=== PATIENT | male | born 1950 | race Two or more races ===

== ENCOUNTER 2024-04-06 15:04 | Inpatient (IN) | payer MEDICARE, MEDICAID, SELFPAY ==
[2024-04-06] VITALS (7 sets, daily range): BP systolic 125–170; BP diastolic 72–81; PULSE 64–93; RESP 14–20; TEMP 36.6–37.1; O2SAT 95–99; BMI 28.3
--- NOTE | 2024-04-06 15:34 | PD.EDRME ---
Rapid Medical Screening Exam RME Arrival date/time: 04/06/24 15:04 74 yo m with c/o of right foot wound. hx dm I have greeted and performed a focused initial assessment of this patient. A comprehensive ED assessment and evaluation of the patient, analysis of all test results, and completion of the medical decision making process will be conducted by additional ED providers. Chief Complaint: Wound/Laceration Time Seen by Provider: 04/06/24 15:23
--- NOTE | 2024-04-06 15:35 | XR_ITS ---
Examination: Foot, , 3 views right foot Technique: AP, oblique, lateral views foot, 3 views Date and time of exam: 04/06/2024, 2029 9:00 PM INDICATION: Infection. FINDINGS: No evidence of fracture or dislocation. 1.6 cm well-circumscribed lucency in the anterior calcaneus unchanged since prior exam.. Otherwise negative exam without evidence of bony erosions. IMPRESSION: No acute bony abnormality. No evidence of bony erosions.
[2024-04-06 15:56] LABS: Lactate (Lactic Acid) 1.2 mMol/L (0.4-2.0)
[2024-04-06 16:01] LABS: Basophils # (Auto) 0.1 Thou/mm3 (0.0-0.2); Basophils % (Auto) 1 % (0-2.5); Eosinophils # (Auto) 0.3 Thou/mm3 (0.0-0.5); Eosinophils % (Auto) 2 % (0-10); Hematocrit 36.5 % (41.0-53.0); Hemoglobin 12.6 g/dL (13.5-16.0); Immature Granulocytes % (Auto) 0 % (0-0); Immature Granulocytes Auto 0.04 Thou/mm3 (0.00-0.00); Lymphocytes # (Auto) 2.9 Thou/mm3 (1.0-4.8); Lymphocytes % (Auto) 23 % (10-50); Mean Corpuscular HGB Conc 34.5 g/dl (31.0-37.0); Mean Corpuscular Hemoglobin 30.5 pg (25.0-35.0); Mean Corpuscular Volume 88 fL (80-100); Monocytes # (Auto) 1.3 Thou/mm3 (0.0-0.8); Monocytes % (Auto) 10 % (0-12); Neutrophils # (Auto) 8.3 Thou/mm3 (1.8-7.7); Neutrophils % (Auto) 64 % (37-80); Nucleated Red Blood Cell % 0 /100 WBC (0); Platelet Count 222 Thou/mm3 (140-440); RDW Standard Deviation 41.9 fL (35.1-43.9); Red Blood Count 4.13 Miln/mm3 (4.50-5.90); White Blood Count 12.9 Thou/mm3 (3.8-10.6)
[2024-04-06 16:22] LABS: Alanine Aminotransferase 15 U/L (10-49); Albumin, Serum 4.5 gm/dL (3.4-4.8); Albumin/Globulin Ratio 1.5 (1.2-2.2); Alkaline Phosphatase 134 U/L (46-116); Anion Gap 8 (7-16); Aspartate Amino Transferase 12 U/L (0-34); BUN/Creatinine Ratio 15 Ratio (12-20); Bilirubin,Total 0.5 mg/dL (0.3-1.2); Blood Urea Nitrogen 28 mg/dL (9-23); Carbon Dioxide 25.2 mMol/L (20.0-31.0); Chloride 100 mMol/L (98-107); Creatinine (Component) 1.9 mg/dL (0.6-1.3); Glucose 331 mg/dL (74-106); Osmolality,Calculated 284 (275-295); Potassium 4.8 mMol/L (3.4-5.1); Procalcitonin 0.09 ng/ml (0.0-0.49); Sodium 133 mMol/L (136-145); Total Protein 7.5 gm/dL (5.7-8.2); eGFR 37 See Note
[2024-04-06 16:59] LABS: Sed Rate (ESR) 56 mm/hr (0-20)
[2024-04-06 17:13] LABS: C-Reactive Protein 3.6 mg/dL (0.0-0.9)
--- NOTE | 2024-04-06 19:19 | PC.NURSE ---
pt is resting quietly no complaints. family at bedside.
--- NOTE | 2024-04-06 19:23 | PD.EDWOUND ---
ED Wound/Laceration-RME/HPI General Chief Complaint: Wound/Laceration Stated Complaint: RIGHT FOOT LACERATION/DIABETIC Time Seen by Provider: 04/06/24 15:23 Arrival date/time: 04/06/24 15:04 RME / HPI RME / HPI narrative: 04/06/24 15:04 74 yo m with c/o of right foot wound. hx dm I have greeted and performed a focused initial assessment of this patient. A comprehensive ED assessment and evaluation of the patient, analysis of all test results, and completion of the medical decision making process will be conducted by additional ED providers. DR. HALLIE WING ED EVALUATION: 19:24 patient is a 74-year-old male with history of hypertension, hypercholesterolemia and diabetes was brought in by daughter today after she noticed an open wound to the right foot. Patient is diabetic and has some swelling and redness to that limb in addition to the open wound. Daughter is concerned about a diabetic foot infection. Patient denies fevers, shakes, chills, sweats. No chest pain or dyspnea. Related Data Home Medications ?Medication ?Instructions ?Recorded ?Confirmed aspirin 81 mg tablet,delayed 81 mg PO QDAY 11/17/17 04/07/24 release (Bert Low Dose Aspirin) clopidogrel 75 mg tablet (Plavix) 75 mg PO QDAY 11/17/17 03/18/20 docusate sodium 100 mg capsule 100 mg PO QDAY 11/17/17 04/07/24 (Colace) Held on 04/07/24. Instructions: takes biacodyl metoprolol tartrate 25 mg tablet 50 mg PO BID 11/17/17 04/07/24 semaglutide 1 mg/dose (4 mg/3 mL) 1 mg subcut QWEEK 04/07/24 04/07/24 subcutaneous pen injector (Ozempic) Previous Rx's ?Medication ?Instructions ?Recorded aspirin 81 mg capsule 81 mg PO QDAY #30 caps 04/08/24 atorvastatin 10 mg tablet (Lipitor) 20 mg (2 x 10 mg) PO HS #30 tabs 04/08/24 bisacodyl 5 mg tablet,delayed 5 mg PO PRN #30 tabs 04/08/24 release clopidogrel 75 mg tablet 75 mg PO QDAY #30 tabs 04/08/24 doxycycline hyclate 100 mg capsule 100 mg PO BID #20 caps 04/08/24 finasteride 5 mg tablet 5 mg PO QDAY #30 tabs 04/08/24 flash glucose sensor (FreeStyle #1 ea 04/08/24 Singh 14 Day Sensor kit) glipizide 5 mg tablet, extended 5 mg PO BID #60 tabs 04/08/24 release 24 hr insulin glargine 100 unit/mL 20 unit (0.2 mL) SCi BID #2 pens 04/08/24 subcutaneous solution (Lantus U-100 Insulin) insulin lispro 100 unit/mL 0 sliding scale dose SCi AC #2 04/08/24 subcutaneous solution vials insulin syringe-needle U-100 0.5 #10 ea 04/08/24 mL 29 gauge x 1/2 (Insulin Syringe) lisinopril 40 mg tablet 40 mg PO QDAY #30 tabs 04/08/24 metoprolol tartrate 25 mg tablet 50 mg (2 x 25 mg) PO BID #60 tabs 04/08/24 sitagliptin phosphate 50 mg tablet 50 mg PO QDAY #30 tabs 04/08/24 (Januvia) vitamin B complex-vitamin C-folic 1 tab PO Q24H #30 tabs 04/08/24 acid 0.8 mg tablet (Renal-Chata) Allergies Allergy/AdvReac Type Severity Reaction Status Date / Time No Known Allergies Allergy Verified 04/06/24 15:06 Review of Systems Review of Systems Systems Reviewed: All systems reviewed, normal except as documented Narrative Review of Systems: GEN: No fever, no chills, no weight loss EYES: No discharge, no visual changes, no pain HEENT: No ear pain, no congestion, no sore throat PULM: No shortness of breath, no cough, no congestion CV: No chest pain, no dyspnea on exertion, no palpitations GI: No nausea, no vomiting, no diarrhea, no pain, no constipation : No frequency, no urgency and no dysuria MUSC/SKEL: No joint pain, no back pain SKIN: No rash. + right foot open wound (see HPI) PSYCH: No hallucinations, no depression HEME/LYMPH: No easy bleeding or bruising tendencies NEURO: No weakness, no headache Past Medical History Past Medical History CARDIAC: Positive Cardiac Disorders, Coronary Artery Disease (CABG), Hypercholesterolemia and Hypertension GASTROINTESTINAL: Positive Obesity GENITOURINARY: Positive Chronic Kidney Disease MUSCULOSKELETAL: Positive Arthritis ENDOCRINE: Positive Endocrine Disorders, Diabetes Mellitus Type 2 and Parathyroid Disease OTHER HISTORY: Positive Hospitalization and Falls Family History FAMILY HISTORY: Positive Family Respiratory Disorders (father had asthma) and Family Cardiac Disorders (father passed from [place]) Surgical History SURGICAL: Positive Cardiac Surgery, Open Heart Surgery, Coronary Artery Bypass Graft, Coronary Stent (X2), Cardiac Catheterization and Angiogram Social History SMOKING STATUS: Former smoker SUBSTANCE USE: does not use ALCOHOL: Never ED Exam Narrative Physical exam: GENERAL APPEARANCE:? alert and oriented x 4, well-developed, well-nourished, no acute distress HEENT: Normocephalic, atraumatic; pupils equal, round, reactive to light; EOMI; mucous membranes pink, moist; oropharynx clear NECK: Supple LUNGS: CTABL; no wheezes, no rales, no rhonchi HEART: Regular rate, regular rhythm; normal S1, S2; no murmurs ABDOMEN: non distended; normal BS;? soft, no tenderness, no guarding, no rebound; no masses, no organomegaly, no hernia?? BACK:? no CVA tenderness EXTREMITIES:? Patient has a 3-1/2 x 2 cm open wound to the medial aspect of the great toe with some surrounding erythema. There is erythema of the foot and the distal ankle and joseph area with +2/4 pitting edema in the right lower extremity. No pitting edema left lower extremity. There is no drainage or active bleeding to the wound. There is no tenderness to palpation of the area and patient has good sensation and not foot. NEUROLOGIC: awake; alert and oriented x4; cranial nerves II-XII grossly intact; no focal sensory or motor deficits PSYCHIATRIC:? appropriate mood and affect SKIN: warm, dry, normal color; no rashes. Wound to the right great toe (see above under extremities for details). Course Quality Measures none Orders Category Date Time Status Tower Operator STAT Care 04/06/24 19:26 Completed Continuous Pulse Oximetry STAT Care 04/06/24 19:26 Completed EKG (ED ONLY) *Do not use* NOW Care 04/06/24 19:26 Completed In and Out Catheter X1PRN Care 04/06/24 19:26 Completed Insert IV NOW Care 04/06/24 19:26 Completed NPO STAT Care 04/06/24 19:26 Completed Strict Intake and Output Routine Care 04/06/24 19:26 Ordered EKG (ED Only) Stat Exams 04/06/24 19:26 Draft XR chest 1V portable Stat Exams 04/06/24 19:26 Completed XR foot comp RT min 3V Stat Exams 04/06/24 15:35 Completed B-Type Natriuretic Peptide Stat Lab 04/06/24 19:37 Completed Blood Culture (Lab) Stat Lab 04/06/24 15:40 Results CBC Stat Lab 04/06/24 15:48 Completed CMP [Comprehensive Metabolic Panel] Stat Lab 04/06/24 15:48 Completed CRP [C-Reactive Protein] Stat Lab 04/06/24 15:48 Completed ESR [Sed Rate (ESR)] Stat Lab 04/06/24 15:48 Completed LDH (Lactate Dehydrogenase) Stat Lab 04/06/24 19:37 Completed Lactic Acid [Lactate (Lactic Acid)] Stat Lab 04/06/24 15:48 Completed Lipase Stat Lab 04/06/24 19:37 Completed Magnesium Stat Lab 04/06/24 19:37 Completed Partial Thromboplastin Time Stat Lab 04/06/24 19:37 Completed Phosphorous Stat Lab 04/06/24 19:37 Completed Procalcitonin Stat Lab 04/06/24 15:48 Completed Prothrombin Time with INR Stat Lab 04/06/24 19:37 Completed Troponin I Stat Lab 04/06/24 19:37 Completed Urinalysis Stat Lab 04/06/24 21:45 Completed Urine Culture Stat Lab 04/06/24 21:45 Completed Doxycycline Inj [Vibramycin Inj] 100 mg Med 04/06/24 19:26 Discontinued Sodium Chloride 0.9% (Pop) [NS 0.9% mini bag] 100 ml IV X1 Piper/Tazo Inj [Zosyn Inj] 4.5 gm Med 04/06/24 19:28 Discontinued Sodium Chloride 0.9% (Pop) [NS 0.9% mini bag] 100 ml IV X1 Sodium Chloride 0.9% 500 ml [Ns] 500 ml Med 04/06/24 19:26 Discontinued IV 999 mls/hr Vital Signs Vital signs: Vital Signs Temperature 98.7 F 04/06/24 15:41 Pulse Rate 93 04/06/24 15:41 Respiratory Rate 20 04/06/24 15:41 Blood Pressure 125/76 04/06/24 15:41 Pulse Oximetry (%) 97 04/06/24 15:41 Oxygen Delivery Method Room Air 04/06/24 15:41 Wound / Laceration MDM Narrative MDM Narrative:: Patient arrived with a heart rate 93. He also has a leukocytosis at 12.9. With these 2 SIRS criteria plus the cellulitic looking foot, patient meets simple sepsis criteria. Lactate less than 2.0. Vital signs at 16:44 all within normal limits save for some mild hypertension. I have ordered the remainder of the sepsis workup, Zosyn and doxycycline IV, fluid bolus and will admit the patient for further antibiotics and workup. Patient data External records reviewed:: [facility] previous records (Reviewed operative note by Dr. Davison dated 03/18/20.) Clinical information provided by:: patient and family (daughter) Social determinants that could affect healthcare access:: none Patient has the following chronic illnesses:: hypertension, hypercholesterolemia and diabetes How is presenting disease/condition affected by chronic disease/condition?: exacerbated by Evaluation data The following diagnostics were reviewed and interpreted by me:: lab results, radiology exam(s) and EKG tracing(s) (EKG 19:57 normal sinus rhythm at 68. Left axis deviation. No ectopy. No signs of acute ischemia or STEMI.) Lab and/or radiology exams considered but not ordered:: none Interpretation Summary: Procedure(s): XR foot comp RT min 3V Accession Number(s): [id number] cc: Lex Kiser MD; Conner Aponte PA-C; Yonny Herrera MD~ Examination: Foot, , 3 views right foot Technique: AP, oblique, lateral views foot, 3 views Date and time of exam: 04/06/2024, 2029 9:00 PM INDICATION: Infection. FINDINGS: No evidence of fracture or dislocation. 1.6 cm well-circumscribed lucency in the anterior calcaneus unchanged since prior exam.. Otherwise negative exam without evidence of bony erosions. IMPRESSION: No acute bony abnormality. No evidence of bony erosions. Dictated By: Lex Kiser MD Procedure(s): XR chest 1V portable Accession Number(s): [id number] cc: Alex Contreras MD; Gavin Sam MD; Yonny Herrera MD~ Examination: AP chest single view Technique one AP portable semiupright chest single view Exam date and time: April 06, 20242001 hrs. Comparison November 17, 2017 Indications: Fever today, sepsis alert Findings: Mild enlargement cardiac contour CABG No pneumonia or pulmonary edema Moderate osteopenia Minor subsegmental atelectasis left base Impression: Minor subsegmental atelectasis left base Dictated By: Alex Contreras MD Medications / Prescriptions Medications or Prescriptions considered but not ordered:: none Medication administrations:: Medication Administration History Discontinued Medications Aspirin (Aspirin Ec 81 Mg Tabec) 81 mg PO QDAY [facility] Stop: 05/07/24 08:59 Last Admin: 04/08/24 08:30 Dose: 81 mg Documented By: Admin: 04/07/24 08:55 Dose: 81 mg Documented By: LT Atorvastatin Calcium (Atorvastatin Calcium 10 Mg Tablet) 20 mg PO QDAY [facility] Stop: 05/07/24 08:59 Last Admin: 04/07/24 08:55 Dose: 20 mg Documented By: LT Atorvastatin Calcium (Atorvastatin Calcium 20 Mg Tablet) 20 mg PO QDAY [facility] Stop: 05/07/24 08:59 Last Admin: 04/08/24 08:30 Dose: 20 mg Documented By: LT Clopidogrel Bisulfate (Clopidogrel Bisulfate 75 Mg Tablet) 75 mg PO QDAY [facility] Stop: 05/07/24 08:59 Last Admin: 04/08/24 08:31 Dose: 75 mg Documented By: Admin: 04/07/24 08:55 Dose: 75 mg Documented By: LT Dextrose (Dextrose 50%-Water Inj 50 Ml Syringe) 25 ml IV Q15MIN PRN PRN Reason: BG 50-70 responsive npo pt Stop: 05/06/24 20:57 Dextrose (Dextrose 50%-Water Inj 50 Ml Syringe) 50 ml IV Q15MIN PRN PRN Reason: BG <50 OR BG <70 & pt unresponsive Stop: 05/06/24 20:57 Docusate Sodium (Docusate Sod 100 Mg Capsule) 100 mg PO QDAY [facility]; Protocol Stop: 05/07/24 08:59 Last Admin: 04/08/24 08:30 Dose: 100 mg Documented By: Admin: 04/07/24 08:55 Dose: 100 mg Documented By: LT Finasteride (Finasteride 5 Mg Tablet) 5 mg PO QDAY [facility] Stop: 05/07/24 08:59 Last Admin: 04/08/24 08:31 Dose: 5 mg Documented By: Admin: 04/07/24 08:55 Dose: 5 mg Documented By: LT Glipizide (Glipizide 5 Mg Tablet) 5 mg PO BID [facility]; Protocol Stop: 05/07/24 08:59 Last Admin: 04/07/24 08:56 Dose: 5 mg Documented By: LT Glucagon (Glucagon Inj 1 Mg Vial) 1 mg IM Q15MIN PRN PRN Reason: BG <70, and no IV access Heparin Sodium (Porcine) (Heparin Sod Inj 5000 Unit/Ml Vial) 5,000 unit SC Q8HR [facility] Stop: 04/21/24 21:59 Last Admin: 04/08/24 05:36 Dose: 5,000 unit Documented By: BEBE Co-signed By: TAMMIE Admin: 04/07/24 21:17 Dose: 5,000 unit Documented By: BEBE Co-signed By: TAMMIE Sodium Chloride (Ns) 500 mls @ 999 mls/hr IV .Q31M ONE Stop: 04/06/24 19:56 Last Infusion: 04/06/24 21:48 Dose: Infused Documented By: Admin: 04/06/24 19:54 Dose: 999 mls/hr Documented By: RASHAUN Piperacillin Sod/Tazobactam (Sod 4.5 gm/ Sodium Chloride) 100 mls @ 200 mls/hr IV X1 ONE Stop: 04/06/24 19:57 Last Infusion: 04/06/24 21:48 Dose: Infused Documented By: Admin: 04/06/24 19:52 Dose: 200 mls/hr Documented By: RASHAUN Doxycycline Hyclate 100 mg/ (Sodium Chloride) 100 mls @ 100 mls/hr IV X1 ONE Stop: 04/06/24 20:25 Last Infusion: 04/06/24 21:48 Dose: Infused Documented By: Admin: 04/06/24 19:53 Dose: 100 mls/hr Documented By: RASHAUN Piperacillin Sod/Tazobactam (Sod 3.375 gm/ Sodium Chloride) 50 mls @ 12.5 mls/hr IV Q8HR [facility]; Protocol Stop: 04/14/24 05:59 Last Admin: 04/08/24 05:36 Dose: 12.5 mls/hr Documented By: Infusion: 04/08/24 01:30 Dose: Infused Documented By: Admin: 04/07/24 21:20 Dose: 12.5 mls/hr Documented By: Infusion: 04/07/24 18:45 Dose: Infused Documented By: Admin: 04/07/24 14:35 Dose: 12.5 mls/hr Documented By: Infusion: 04/07/24 10:04 Dose: Infused Documented By: Admin: 04/07/24 06:04 Dose: 12.5 mls/hr Documented By: Insulin Glargine (Insulin Glargine (Lantus) 5 Unit/0.05 Ml (Per 5 Units)) 10 unit SC QDAY [facility] Stop: 05/07/24 08:59 Last Admin: 04/07/24 08:53 Dose: 10 unit Documented By: Co-signed By: CHEEM1 Insulin Glargine (Insulin Glargine (Lantus) 5 Unit/0.05 Ml (Per 5 Units)) 20 unit SC BID [facility] Stop: 05/07/24 20:59 Last Admin: 04/08/24 08:32 Dose: 20 unit Documented By: Co-signed By: CAIT Admin: 04/07/24 21:17 Dose: 20 unit Documented By: BEBE Co-signed By: TAMMIE Insulin Human Lispro (Insulin Lispro (Admelog) 1 Unit/0.01 Ml Unit) 0 unit SC AC [facility]; Protocol Stop: 05/07/24 07:29 Last Admin: 04/08/24 07:35 Dose: 2 unit Documented By: ALLI Co-signed By: Admin: 04/07/24 17:07 Dose: Not Given Documented By: Non-Admin Reason: Per Protocol Admin: 04/07/24 11:39 Dose: 5 unit Documented By: CLARA Co-signed By: Admin: 04/07/24 07:41 Dose: 5 unit Documented By: CLARA Co-signed By: Comments: given with clinical instructor Azalea ROACH. Lisinopril (Lisinopril 20 Mg Tablet) 40 mg PO QDAY [facility] Stop: 05/07/24 08:59 Last Admin: 04/08/24 08:27 Dose: Not Given Documented By: LT Non-Admin Reason: per md amy rodriguez d/t soft bp this am Admin: 04/07/24 08:56 Dose: 40 mg Documented By: LT Metoprolol Tartrate (Metoprolol Tartrate 25 Mg Tablet) 50 mg PO BID [facility] Stop: 05/06/24 20:59 Last Admin: 04/08/24 08:28 Dose: Not Given Documented By: LT Non-Admin Reason: hold per md reyes d/t soft bp this am Admin: 04/07/24 21:11 Dose: 50 mg Documented By: Admin: 04/07/24 08:54 Dose: 50 mg Documented By: Admin: 04/06/24 21:47 Dose: Not Given Documented By: TC Non-Admin Reason: Contraindicated Sitagliptin Phosphate (Sitagliptin Phosphate 50 Mg Tablet) 50 mg PO QDAY [facility] Stop: 05/08/24 08:59 Last Admin: 04/08/24 08:30 Dose: 50 mg Documented By: LT see above Consultations Consultation(s) initiated? (list below): Yes Consultation #1 (Physician, Specialty, Details): Discussed test HPI, PMHx, lab, radiology results and/or management with Dr. Herrera. Will admit for further evaluation and management. Accepts patient for admission. Diagnosis Wound Differential Diagnosis: abscess and other (sepsis, diabetic ulcer, diabetes with hyperglycemia) Most likely diagnosis given after review of the tests above:: Diabetic foot ulcer associated with type 2 diabetes mellitus Diabetes mellitus with hyperglycemia Hypertension Hyperlipidemia Acute on chronic renal insufficiency CKD stage 3 due to type 2 diabetes mellitus Admission Indicated Admission indicated?: indicated Admission Request Was there a request for admission?: Yes Admission Attestation Admission request attestation: Discussed case with [] from Hospitalist service regarding admission. Discussed patients ED course, exam findings, labs, and radiology results. The Hospitalist [agrees,declines] to accept the patient for admission. Disposition Plan Disposition Plan: Admit Discharge Plan Plan Patient Disposition: Admit Acute Care w/in Hospital Patient condition on transfer: Stable Problem List Clinical Impression: Diabetic foot ulcer associated with type 2 diabetes mellitus, Hypertension, Diabetes mellitus with hyperglycemia, Hyperlipidemia, Acute on chronic renal insufficiency, CKD stage 3 due to type 2 diabetes mellitus Patient/Caregiver Discharge Instructions Discharge Activity: as per physical therapy
--- NOTE | 2024-04-06 19:26 | EKG_ITS ---
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
--- NOTE | 2024-04-06 19:26 | XR_ITS ---
Examination: AP chest single view Technique one AP portable semiupright chest single view Exam date and time: April 06, 20242001 hrs. Comparison November 17, 2017 Indications: Fever today, sepsis alert Findings: Mild enlargement cardiac contour CABG No pneumonia or pulmonary edema Moderate osteopenia Minor subsegmental atelectasis left base Impression: Minor subsegmental atelectasis left base
[2024-04-06] MEDS: PIPER/TAZO INJ 4.5 GM in SODIUM CHLORIDE 0.9% (POP) 100 ML IV (19:52)
[2024-04-06] MEDS: DOXYCYCLINE INJ 100 MG in SODIUM CHLORIDE 0.9% (POP) 100 ML IV (19:53)
[2024-04-06] MEDS: SODIUM CHLORIDE 0.9% 500 ML 500 ML 999 ML IV (19:54)
[2024-04-06 20:01] LABS: Partial Thromboplastin Time 25.1 Seconds (22.0-36.0); Prothrombin Time 11.2 Seconds (9.0-12.2)
[2024-04-06 20:33] LABS: B-Type Natriuretic Peptide 64 pg/mL (0-100)
--- NOTE | 2024-04-06 21:01 | PD.NEPHHP ---
Documentation for date of: 04/06/24 History of Present Illness History of Present Illness Chief complaint: Right foot diabetic ulcer History of present illness: Mr. Marc is a 74-year-old gentleman with a longstanding history of hypertension, poorly controlled diabetes for more than 15 years, dyslipidemia, diabetic neuropathy, diabetic retinopathy presented to the emergency department brought by her daughter with open wound on the right foot (right great toe medial aspect and the right third toe) noted erythema in the right foot. Patient was given Zosyn. Was admitted for further evaluation. Patient denies fevers, shakes, chills, sweats. No chest pain or dyspnea. In the emergency department-lactic acid less than 2, cellulitic right foot noted.Urinalysis shows 4+ glucose. WBC 12.9, hemoglobin 12.6, platelets 222. Chemistry sodium 133, potassium 4.8, BUN 28, creatinine 1.9, glucose 329 with an A1c 13.1. Phosphorus 3.4, magnesium 1.9, LFTs normal, troponin negative. C-reactive protein 3.6, albumin 4.5, lipase 59, Pro-Paco 0.09 foot x-ray showed no evidence of bony erosions. Chest x-ray negative. EKG did not show any acute ST-T changes. In the ED-on exam the patient has a 3-1/2 x 2 cm open wound to the medial aspect of the great toe with some surrounding erythema. There is erythema of the foot and the distal ankle and joseph area with +2/4 pitting edema in the right lower extremity. No pitting edema left lower extremity. There is no drainage or active bleeding to the wound. There is no tenderness to palpation of the area and patient has good sensation to the foot ER doctor gave Zosyn and doxycycline IV, fluid bolus and patient was admitted for antibiotics and workup. Review of Systems Review of Systems Narrative Review of Systems: CONSTITUTIONAL: Patient denies any fever, chills. HEENT: Denies any visual disturbances or hearing problems. CARDIOVASCULAR: Patient denies any chest pain, shortness of breath, swelling in the lower extremities. PULMONARY: Patient denies any shortness of breath, cough. GASTROINTESTINAL: Patient denies any abdominal pain, constipation, nausea, vomiting, diarrhea. GENITOURINARY: Patient denies any urinary symptoms of burning or frequency or hematuria, denies any form in the urine. SKIN: Denies any rash. MUSCULOSKELETAL: Complaining of pain in the right toes NEUROLOGICAL: Denies any neurological problems of strokes, seizures or confusion. Denies any memory problems. PSYCHIATRIC: Denies any depression or anxiety. LYMPHATICS : No lymphadenopathy Past Medical History Past Medical History CARDIAC: Positive Hypercholesterolemia and Hypertension GENITOURINARY: Positive Chronic Kidney Disease MUSCULOSKELETAL: Positive Arthritis ENDOCRINE: Positive Diabetes Mellitus Type 2 and Parathyroid Disease Meds Home Medications and Allergies Home Medications ?Medication ?Instructions ?Recorded ?Confirmed ?Type aspirin 81 mg tablet,delayed 81 mg PO QDAY 11/17/17 04/07/24 History release (Bert Low Dose Aspirin) atorvastatin 10 mg tablet (Lipitor) 20 mg PO HS 11/17/17 04/07/24 History clopidogrel 75 mg tablet (Plavix) 75 mg PO QDAY 11/17/17 03/18/20 History docusate sodium 100 mg capsule 100 mg PO QDAY 11/17/17 04/07/24 History (Colace) Held on 04/07/24. Instructions: takes biacodyl lisinopril 40 mg tablet 40 mg PO QDAY 11/17/17 04/07/24 History metoprolol tartrate 25 mg tablet 50 mg PO BID 11/17/17 04/07/24 History finasteride 5 mg tablet 5 mg PO QDAY 03/18/20 04/07/24 History glipizide 5 mg tablet, extended 5 mg PO BID 03/18/20 04/07/24 History release 24 hr insulin NPH-regular 70-30 U-100 20 unit subcut QAM 03/18/20 04/07/24 History insulin 100 unit/mL subcutaneous pen (Novolin 70-30 FlexPen U-100 Insulin) bisacodyl 5 mg tablet,delayed 5 mg PO PRN 04/07/24 04/07/24 History release semaglutide 1 mg/dose (4 mg/3 mL) 1 mg subcut QWEEK 04/07/24 04/07/24 History subcutaneous pen injector (Ozempic) vitamin B complex-vitamin C-folic 1 tab PO Q24H 04/07/24 04/07/24 History acid 0.8 mg tablet (Renal-Chata) Allergies Allergy/AdvReac Type Severity Reaction Status Date / Time No Known Allergies Allergy Verified 04/06/24 15:06 Exam Vital Signs Temp Pulse Resp BP Pulse Ox O2 Del Method 36.6 C 80 18 170/81 H 97 Room Air 04/06/24 18:44 04/06/24 18:44 04/06/24 18:44 04/06/24 18:44 04/06/24 18:44 04/06/24 18:44 Narrative Exam GENERAL APPEARANCE: Patient seems to be comfortable, adequately hydrated and nourished. HEENT: EOMI, PERRLA NECK: Neck supple, no JVD or bruit CARDIOVASCULAR: Heart regular, no murmurs LUNGS/CHEST: Chest clear to auscultation. No rales, rhonchi, wheezing ABDOMEN: Soft, nontender, nondistended. No masses. Normal bowel sounds. EXTREMITIES: No edema, clubbing or cyanosis. SKIN: Skin exam normal without any rashes MUSCULOSKELETAL: Patient has unstageable diabetic ulcer on the right great toe and underneath the right third toe PSYCHIATRIC: Normal mood, affect LYMPHATICS: No lymphadenopathy noted NEUROLOGICAL : No neurological deficits Results: Labs 04/06/24 15:48 04/06/24 15:48 Labs: Short CBC 04/06/24 Range/Units 15:48 WBC 12.9 H (3.8-10.6) Thou/mm3 Hgb 12.6 L (13.5-16.0) g/dL Hct 36.5 L (41.0-53.0) % Plt Count 222 (140-440) Thou/mm3 BMP 04/06/24 15:48 Sodium 133 L Potassium 4.8 Chloride 100 Carbon Dioxide 25.2 BUN 28 H Creatinine 1.9 H Glucose 331 H Calcium 10.0 Liver Function 04/06/24 Range/Units 15:48 Total Bilirubin 0.5 (0.3-1.2) mg/dL AST 12 (0-34) U/L ALT 15 (10-49) U/L Alkaline Phosphatase 134 H (46-116) U/L Albumin 4.5 (3.4-4.8) gm/dL Assessment & Plan Assessment and plan (1) Diabetic foot ulcer associated with type 2 diabetes mellitus: Status: Acute Assessment and plan: Patient seems to have diabetic foot ulcer in 2 places-wound care, antibiotics given. Will check arterial Doppler. (2) Diabetes mellitus with hyperglycemia: Status: Inactive Assessment and plan: Spoke to son at bedside-patient seems to be noncompliant with his insulin. A1c 13.6. Added Lantus 20 units twice daily along with sliding scale. (3) Hypertension: Status: Acute Assessment and plan: Add home blood pressure medications (4) Hyperlipidemia: Status: Acute Assessment and plan: Continue statin (5) Acute on chronic renal insufficiency: Status: Acute Assessment and plan: Acute on chronic renal insufficiency from poorly controlled diabetes Gentle IV fluids given. He has CKD stage III from diabetic nephropathy. (6) CKD stage 3 due to type 2 diabetes mellitus: Status: Acute Assessment and plan: Check PTH Additional Assessment & Plan Additional Plan: Estimated length of stay 2 to 3 days DVT prophylaxis heparin GI prophylaxis not needed Disposition Home Quality Measures Quality Measures VTE prophylaxis Advance care planning discussed with:: patient
[2024-04-06 21:36] LABS: LDH (Lactate Dehydrogenase) 183 U/L (120-246); Lipase 59 U/L (12-53); Magnesium 1.9 mg/dL (1.6-2.6); Phosphorous 3.4 mg/dL (2.4-5.1); Troponin I < 0.020 ng/mL (0.0-0.045)
[2024-04-06 21:54] LABS: Collection Type, Urine Clean Catch; Squamous Epithelial Cell,Urine 0 /hpf (0-5)
[2024-04-06 22:00] LABS: Bilirubin,Urine Negative (Negative); Blood,Urine Negative (Negative); Clarity,Urine Clear (Clear/Hazy); Color,Urine Lt-Yellow (Lt Yel-Yel); Glucose, Urine 4+ (Negative); Ketones,Urine Negative (Negative); Leukocyte Esterase,Urine Negative (Negative); Nitrite,Urine Negative (Negative); Protein,Urine Trace (Neg - Trace); RBC,Urine < 1 /hpf (0-3); Specific Gravity,Urine 1.009 (1.001-1.035); Urobilinogen,Urine Negative mg/dL (0.0-1.0); WBC,Urine < 1 /hpf (0-5)
--- NOTE | 2024-04-06 23:03 | PC.NURSE ---
REPORT WAS CALLED AND PT TAKEN TO RM [id number]
--- NOTE | 2024-04-06 23:04 | PC.NURSE ---
PT CO SORNESS TO NECK . PT HAD A FALL ON 04/02. MD AWARE AND TYLENOL GIVEN
[2024-04-07] VITALS (9 sets, daily range): BP systolic 124–162; BP diastolic 65–91; PULSE 56–74; RESP 16–19; TEMP 36.1–36.7; O2SAT 95–99
[2024-04-07 05:16] LABS: Glucose Estimated Average 329 mg/dL (80-131); Hemoglobin A1C 13.1 % Hgb (4.8-6.0)
[2024-04-07] MEDS: PIPER/TAZO INJ 3.375 GM in SODIUM CHLORIDE 0.9% (Popper) 50 ML IV ×3 (06:04→21:20)
[2024-04-07] MEDS: INSULIN LISPRO (AdmeLOG) 1 UNIT/0.01 ML UNIT SC ×2 (07:41→11:39)
[2024-04-07] MEDS: INSULIN GLARGINE (Lantus) 5 UNIT/0.05 ML (PER 5 UNITS) 10 UNIT SC (08:53)
[2024-04-07] MEDS: METOPROLOL TARTRATE 25 MG TABLET 50 MG PO ×2 (08:54→21:11)
[2024-04-07] MEDS: FINASTERIDE 5 MG TABLET PO (08:55)
[2024-04-07] MEDS: ASPIRIN EC 81 MG TABEC PO (08:55)
[2024-04-07] MEDS: ATORVASTATIN CALCIUM 10 MG TABLET 20 MG PO (08:55)
[2024-04-07] MEDS: DOCUSATE SOD 100 MG CAPSULE PO (08:55)
[2024-04-07] MEDS: CLOPIDOGREL BISULFATE 75 MG TABLET PO (08:55)
[2024-04-07] MEDS: Lisinopril 20 MG TABLET 40 MG PO (08:56)
[2024-04-07] MEDS: glipiZIDE 5 MG TABLET PO (08:56)
--- NOTE | 2024-04-07 12:22 | PD.NEPHPROG ---
Documentation for date of: 04/07/24 Subjective Subjective Interval history: Mr. Marc is a 74-year-old gentleman with a longstanding history of hypertension, poorly controlled diabetes for more than 15 years, dyslipidemia, diabetic neuropathy, diabetic retinopathy presented to the emergency department brought by her daughter with open wound on the right foot (right great toe medial aspect and the right third toe) noted erythema in the right foot. Patient was given Zosyn. Was admitted for further evaluation. Patient denies fevers, shakes, chills, sweats. No chest pain or dyspnea. In the emergency department-lactic acid less than 2, cellulitic right foot noted.Urinalysis shows 4+ glucose. WBC 12.9, hemoglobin 12.6, platelets 222. Chemistry sodium 133, potassium 4.8, BUN 28, creatinine 1.9, glucose 329 with an A1c 13.1. Phosphorus 3.4, magnesium 1.9, LFTs normal, troponin negative. C-reactive protein 3.6, albumin 4.5, lipase 59, Pro-Paco 0.09 foot x-ray showed no evidence of bony erosions. Chest x-ray negative. EKG did not show any acute ST-T changes. In the ED-on exam the patient has a 3-1/2 x 2 cm open wound to the medial aspect of the great toe with some surrounding erythema. There is erythema of the foot and the distal ankle and joseph area with +2/4 pitting edema in the right lower extremity. No pitting edema left lower extremity. There is no drainage or active bleeding to the wound. There is no tenderness to palpation of the area and patient has good sensation to the foot ER doctor gave Zosyn and doxycycline IV, fluid bolus and patient was admitted for antibiotics and workup. 04/07/2024 patient currently seen in medical floor. Son and [id number] at bedside. Denies any chest pain, shortness of breath. Denies any nausea, vomiting. Had a long conversation with son regarding compliance with diabetes. Arterial Doppler ordered. Continue with antibiotics. Wound care consultation requested. Will optimize insulin. DC glipizide. Review of Systems Review of Systems Narrative Review of Systems: CONSTITUTIONAL: Patient denies any fever, chills. HEENT: Denies any visual disturbances or hearing problems. CARDIOVASCULAR: Patient denies any chest pain, shortness of breath, swelling in the lower extremities. PULMONARY: Patient denies any shortness of breath, cough. GASTROINTESTINAL: Patient denies any abdominal pain, constipation, nausea, vomiting, diarrhea. GENITOURINARY: Patient denies any urinary symptoms of burning or frequency or hematuria, denies any form in the urine. SKIN: Denies any rash. MUSCULOSKELETAL: Complaining of pain in the right toes NEUROLOGICAL: Denies any neurological problems of strokes, seizures or confusion. Denies any memory problems. PSYCHIATRIC: Denies any depression or anxiety. LYMPHATICS : No lymphadenopathy Exam Vital Signs Temp Pulse Resp BP Pulse Ox O2 Del Method 36.1 C 56 L 16 130/76 95 Room Air 04/07/24 16:00 04/07/24 16:00 04/07/24 16:00 04/07/24 16:04/07/24 16:04/07/24 16:00 Narrative Exam GENERAL APPEARANCE: Patient seems to be comfortable, adequately hydrated and nourished. HEENT: EOMI, PERRLA NECK: Neck supple, no JVD or bruit CARDIOVASCULAR: Heart regular, no murmurs LUNGS/CHEST: Chest clear to auscultation. No rales, rhonchi, wheezing ABDOMEN: Soft, nontender, nondistended. No masses. Normal bowel sounds. EXTREMITIES: No edema, clubbing or cyanosis. SKIN: Skin exam normal without any rashes MUSCULOSKELETAL: Patient has unstageable diabetic ulcer on the right great toe and underneath the right third toe PSYCHIATRIC: Normal mood, affect LYMPHATICS: No lymphadenopathy noted NEUROLOGICAL : No neurological deficits Objective Labs 04/06/24 15:48 04/06/24 15:48 Labs: Laboratory Results - last 24 hr 04/06/24 04/06/24 04/07/24 19:37 21:45 04:47 PT 11.2 INR 1.[address] Glu mg/dL 329 H Hemoglobin A1c 13.1 H Phosphorus 3.4 Magnesium 1.9 Lactate Dehydrogenase 183 Troponin I < 0.020 B-Natriuretic Peptide 64 Lipase 59 H Ur Collection Type Clean Catch Urine Color Lt-Yellow Urine Clarity Clear Urine pH 6.0 Ur Specific [place] 1.009 Urine Protein Trace Urine Glucose (UA) 4+ A Urine Ketones Negative Urine Blood Negative Urine Nitrite Negative Urine Bilirubin Negative Urine Urobilinogen (Auto) Negative Ur Leukocyte Esterase Negative Urine RBC < 1 Urine WBC < 1 Ur Squamous Epith Cells 0 Urine Bacteria None Assessment & Plan Assessment and plan (1) Diabetic foot ulcer associated with type 2 diabetes mellitus: Status: Acute Assessment and plan: Patient seems to have diabetic foot ulcer in 2 places-wound care, antibiotics given. Will check arterial Doppler. (2) Diabetes mellitus with hyperglycemia: Status: Inactive Assessment and plan: Spoke to son at bedside-patient seems to be noncompliant with his insulin. A1c 13.6. Added Lantus 20 units twice daily along with sliding scale. (3) Hypertension: Status: Acute Assessment and plan: Add home blood pressure medications (4) Hyperlipidemia: Status: Acute Assessment and plan: Continue statin (5) Acute on chronic renal insufficiency: Status: Acute Assessment and plan: Acute on chronic renal insufficiency from poorly controlled diabetes Gentle IV fluids given. He has CKD stage III from diabetic nephropathy. (6) CKD stage 3 due to type 2 diabetes mellitus: Status: Acute Assessment and plan: Check PTH (7) CAD (coronary artery disease) of artery bypass graft: Status: Acute Assessment and plan: Patient with CABG and recent stent. Under Dr. Rocha. Continue with aspirin, Plavix. Asymptomatic. Additional Assessment & Plan Additional Plan: Estimated length of stay 2 to 3 days DVT prophylaxis heparin GI prophylaxis not needed Disposition Home
--- NOTE | 2024-04-07 15:47 | PC.SS ---
Serjio Macr is a 74-year-old male admitted to [place] for Diabetic Foot Infection. SS conducted bedside contact with the patient to complete initial assessment and to discuss discharge planning.? Patient confirmed demographic information. Patient identifies his daughter Renea Franklin [phone] as his surrogate decision maker. Patient resides at home with family. Pt states he is typically able to complete all ADL?s independently; pt has a cane and walker. Pts PCP is Dr. Herrera (last visit about 4 months ago) and pharmacy of choice is [facility]. DC option discussed and pt wishes to return home. Pts family will provide transportation upon DC. No further intervention required at this time, social problems specialist would be available to address any further concerns. DC Plan: Home Contact: Renea Franklin [phone] PCP: Sharon
[2024-04-07] MEDS: HEPARIN SOD INJ 5000 UNIT/ML VIAL SC (21:17)
[2024-04-07] MEDS: INSULIN GLARGINE (Lantus) 5 UNIT/0.05 ML (PER 5 UNITS) 20 UNIT SC (21:17)
[2024-04-08] VITALS: BP 134/79; PULSE 64; RESP 17; TEMP 36.9; O2SAT 99
[2024-04-08 03:02] LABS: Protein Total, Random Urine 19 mg/dL (1-14)
[2024-04-08 03:05] LABS: Creatinine,Random Urine 39 mg/dL (30-125)
[2024-04-08 04:00] VITALS: BP 128/77; PULSE 55; RESP 17; TEMP 36.8; O2SAT 98
[2024-04-08 05:03] LABS: Basophils # (Auto) 0.1 Thou/mm3 (0.0-0.2); Basophils % (Auto) 1 % (0-2.5); Eosinophils # (Auto) 0.3 Thou/mm3 (0.0-0.5); Eosinophils % (Auto) 3 % (0-10); Hematocrit 35.2 % (41.0-53.0); Hemoglobin 11.6 g/dL (13.5-16.0); Immature Granulocytes % (Auto) 0 % (0-0); Immature Granulocytes Auto 0.03 Thou/mm3 (0.00-0.00); Lymphocytes # (Auto) 2.5 Thou/mm3 (1.0-4.8); Lymphocytes % (Auto) 28 % (10-50); Mean Corpuscular Hemoglobin 29.7 pg (25.0-35.0); Mean Corpuscular Volume 90 fL (80-100); Monocytes # (Auto) 1.1 Thou/mm3 (0.0-0.8); Monocytes % (Auto) 12 % (0-12); Neutrophils % (Auto) 56 % (37-80); Nucleated Red Blood Cell % 0 /100 WBC (0); Platelet Count 203 Thou/mm3 (140-440); RDW Standard Deviation 41.9 fL (35.1-43.9); White Blood Count 8.9 Thou/mm3 (3.8-10.6)
[2024-04-08 05:23] LABS: Parathyroid Hormone Intact 57.1 pg/ml (18.5-88.0)
[2024-04-08 05:28] LABS: Alanine Aminotransferase 13 U/L (10-49); Albumin, Serum 3.7 gm/dL (3.4-4.8); Anion Gap 9 (7-16); Aspartate Amino Transferase 10 U/L (0-34); BUN/Creatinine Ratio 19 Ratio (12-20); Bilirubin,Total 0.4 mg/dL (0.3-1.2); Blood Urea Nitrogen 31 mg/dL (9-23); Calcium 9.3 mg/dL (8.3-10.6); Calcium (Corrected) 9.5 mg/dL (8.5-10.1); Carbon Dioxide 23.9 mMol/L (20.0-31.0); Chloride 108 mMol/L (98-107); Creatinine (Component) 1.6 mg/dL (0.6-1.3); Estimated Creatinine Clearance 44.3 mL/min (>60); Globulin 2.6 gm/dL (2.3-3.5); Glucose 174 mg/dL (74-106); Osmolality,Calculated 291 (275-295); Potassium 4.3 mMol/L (3.4-5.1); Sodium 141 mMol/L (136-145); Total Protein 6.3 gm/dL (5.7-8.2); eGFR 45 See Note
[2024-04-08 05:29] LABS: Albumin/Globulin Ratio 1.4 (1.2-2.2); Alkaline Phosphatase 107 U/L (46-116); Cardiac Risk Estimate 2.9 RATIO (4.0-6.7); Cholesterol 117 mg/dL (132-200); HDL Cholesterol 40 mg/dL (40-60); LDL Cholesterol,Calculated 62 mg/dL (0-130); Triglycerides 76 mg/dL (30-150)
[2024-04-08] MEDS: PIPER/TAZO INJ 3.375 GM in SODIUM CHLORIDE 0.9% (Popper) 50 ML IV (05:36)
[2024-04-08] MEDS: HEPARIN SOD INJ 5000 UNIT/ML VIAL SC (05:36)
[2024-04-08] MEDS: INSULIN LISPRO (AdmeLOG) 1 UNIT/0.01 ML UNIT SC (07:35)
[2024-04-08 07:43] VITALS: BP 127/69; PULSE 62; RESP 14; TEMP 36.7; O2SAT 96
--- NOTE | 2024-04-08 08:00 | XR_ITS ---
Examination: Arterial duplex lower extremity study. Date and time of exam: April 08, 2024 0218 hrs. Indications: Nonhealing right foot ulcer beginning one week ago Findings: Duplex sonographic imaging of the lower extremity arteries using B-mode/Francisco scale imaging and Doppler spectral analysis and color flow. Ankle brachial indices have been recorded. Right common femoral artery demonstrates triphasic flow. Right superficial femoral artery demonstrates triphasic flow. Right popliteal artery demonstrates biphasic flow. Right posterior tibial artery demonstrated biphasic flow. Right ankle/brachial index is 1.2. Left common femoral artery demonstrates triphasic flow. Left superficial femoral artery demonstrates biphasic flow. Left popliteal artery demonstrates biphasic flow. Left posterior tibial artery demonstrated biphasic flow. Left ankle/brachial index is 1.1. Impression: No significant peripheral obstructive arterial disease However, CTA abdominal aorta iliofemoral runoff follow-up would best assess for trifurcation arterial obstructive disease below the knees
[2024-04-08 08:27] VITALS: BP 108/59; PULSE 67
[2024-04-08 08:28] VITALS: BP 108/59; PULSE 67
--- NOTE | 2024-04-08 08:29 | PD.RESDS ---
Planned Discharge Date 04/08/24 DS: Providers Provider Date of admission: 04/06/24 20:58 Primary care physician: Yonny Herrera MD Admitting Provider: Yonny Herrera MD Attending Provider on Admission: Yonny Herrera MD Consults: 04/07/24 00:09 Referral Wound Care Routine Comment: Diabetic foot ulcers/wounds Attending Provider on DC: Reinier Bowden MD Discharging Provider: Reinier Bowden MD DS: Diagnosis Problem List Completed Was Problem List Reviewed/Reconciled?: Yes Hospital Course Hospital Course Hospital course: Mr. Marc is a 74-year-old gentleman with a longstanding history of hypertension, poorly controlled diabetes for more than 15 years, dyslipidemia, diabetic neuropathy, diabetic retinopathy presented to the emergency department brought by her daughter with open wound on the right foot (right great toe medial aspect and the right third toe) noted erythema in the right foot. Patient denies fevers, shakes, chills, sweats. No chest pain or dyspnea.Patient was given Zosyn. Was admitted for further evaluation. ED course: In the emergency department-lactic acid less than 2, cellulitic right foot noted.Urinalysis shows 4+ glucose. WBC 12.9, hemoglobin 12.6, platelets 222. Chemistry sodium 133, potassium 4.8, BUN 28, creatinine 1.9, glucose 329 with an A1c 13.1. Phosphorus 3.4, magnesium 1.9, LFTs normal, troponin negative. C-reactive protein 3.6, albumin 4.5, lipase 59, Pro-Paco 0.09 foot x-ray showed no evidence of bony erosions. Chest x-ray negative. EKG did not show any acute ST-T changes. Arterial Doppler of bilateral lower extremities showed no peripheral arterial obstruction. Hospital course: Patient was treated with antibiotics, wound care, insuli and other needed treatments blood sugars are well-controlled. Patient was discharged to home with the following medications and recommendations. -Follow-up with PCP within 1 week of discharge. If you do not have appointment, please follow-up with the [facility] with Dr. Bowden. Call [phone] to make an appointment. -Follow up with Dr. Herrera within 1 week of discharge. -Start insulin lispro as per sliding scale and stop insulin lantus -Continue rest of the home medications -Take Doxycycline 100mg p.o. BID for 10 days -Return to ED if symptoms persist or return -Follow up with [facility]. Call for follow up appointment. #Diabetic foot ulcer associated with type 2 diabetes mellitus #Hypertension #Hyperlipidemia #Acute on chronic renal insufficiency: #CKD stage 3 due to type 2 diabetes mellitus #CAD (coronary artery disease) of artery bypass graft Patient plan of care was discussed with the attending physician, Dr. Sharon Bowden, PGY1 Status at Discharge Cognitive/behavioral status at discharge: stable Functional status at discharge: independent ambulation Overall status at discharge: patient is progressing back to baseline Time Spent with Patient Time attestation: Total time spent providing and/or coordinating discharge services: Time spent: Greater than 30 minutes Exam Vital Signs Temp Pulse Resp BP Pulse Ox O2 Del Method 98.0 F 62 14 127/69 96 Room Air 04/08/24 07:43 04/08/24 07:43 04/08/24 07:43 04/08/24 07:43 04/08/24 07:43 04/08/24 07:43 Narrative Exam General: Awake. HEENT: Normocephalic, atraumatic, mucous membranes moist. Heart: Regular rate and rhythm, no murmurs. Lungs: Clear to auscultation with no wheezing or crackles. Abdomen: Soft, nondistended, nontender, positive bowel sounds. ?No guarding or rebound tenderness. Neurologic: Alert and oriented x3, no gross neurological deficit, and patient able to move all 4 extremities. Extremities:open wound on the right foot (right great toe medial aspect and the right third toe) Skin: wound - rt great toe Discharge Plan Plan Patient Disposition: HOME (Self Care) Patient condition on transfer: Stable Care Plan Goals: -Follow-up with PCP within 1 week of discharge. If you do not have appointment, please follow-up with the [facility] with Dr. Bowden. Call [phone] to make an appointment. -Follow up with Dr. Herrera within 1 week of discharge. -Start insulin lispro as per sliding scale and stop insulin lantus -Continue rest of the home medications -Take Doxycycline 100mg p.o. BID for 10 days -Follow with Dr. Lyons within 1 week of discharge -Return to ED if symptoms persist or return -Follow up with [facility]. Call for follow up appointment. - Follow up at [facility], [address] [place] [address]. Call [phone] for appointment. - Wound care to right foot (bottom of 3rd toe and outer side of great toe ).May shower than change dressing. *Dutch Neck sites with betadine, allow to dry than cover great toe site with foam dressing. Once a day and as needed for falling off. *Avoid tight fitting shoes. - Seguimiento con el m?dico de atenci?n primaria dentro de la semana posterior al beatrice. Si no tiene tahir jovita, realice un seguimiento con el Dr. Bowden en el centro cl?eileen acad?kentrell. Llame al [phone] para programar tahir jovita. - Seguimiento con el Dr. Herrera dentro de la semana posterior al beatrice. - Comience con insulina lispro seg?n la escala m?js y suspenda la insulina lantus. - Contin?e con el daniel de los medicamentos en el hogar. - [place] doxiciclina 100 mg por v?a oral dos veces al d?a sonu 10 d?as. - Seguimiento con el Dr. Lyons dentro de la semana posterior al beatrice. - Regrese al departamento de emergencias si los s?ntomas persisten o regresan. - Seguimiento con el pod?logo. Llame para tahir jovita de seguimiento. - Seguimiento en [facility], [address] [place] [address]. Llame al [phone] para programar tahir jovita. - Cuidado de la herida en el pie derecho (planta del tercer dedo y lado externo del dedo sinan). Puede ducharse y luego cambiar el vendaje. *Pinte las zonas con betadine, deje secar y luego cubra el dedo sinan con un vendaje de espuma. Tahir vez al d?a y seg?n sea necesario para evitar ca?vasquez. *Evite los zapatos ajustados. If active bleeding occurs, apply tight dressing and return to MD or ER. ? Notify primary doctor or return to Emergency Room if any of the following: ? Fever above 100.6? F. ? Increased pain ? Increase swelling ? Red streaks around your wound ? Drainage becomes foul smelling or changes color ? The wound is larger or deeper ? The wound looks dried out or dark ? Bleeding that does not stop with holding pressure Prescriptions/Referrals Prescriptions/Med Rec: New aspirin 81 mg capsule 81 mg PO QDAY Qty: 30 0RF clopidogrel 75 mg tablet 75 mg PO QDAY Qty: 30 0RF insulin glargine [Lantus U-100 Insulin] 100 unit/mL Solution 20 unit SCi BID Qty: 2 0RF insulin lispro 100 unit/mL Solution 0 sliding scale dose SCi AC Qty: 2 0RF metoprolol tartrate 25 mg Tablet 50 mg PO BID Qty: 60 0RF Januvia 50 mg Tablet 50 mg PO QDAY Qty: 30 0RF doxycycline hyclate 100 mg capsule 100 mg PO BID Qty: 20 0RF (DME) FreeStyle Singh 14 Day Sensor Kit See Rx Instructions .Route Qty: 1 0RF Rx Instructions: As directed (DME) insulin syringe-needle U-100 [Insulin Syringe] 0.5 mL 29 gauge x 1/2 syringe See Rx Instructions .Route Qty: 10 0RF Rx Instructions: As directed Continued atorvastatin [Lipitor] 10 mg Tablet 20 mg PO HS Qty: 30 0RF glipizide 5 mg Tablet Extended Release 24hr 5 mg PO BID Qty: 60 0RF Renal-Chata 0.8 mg tablet 1 tab PO Q24H Qty: 30 0RF bisacodyl 5 mg tablet,delayed release (DR/EC) 5 mg PO PRN Qty: 30 0RF lisinopril 40 mg Tablet 40 mg PO QDAY Qty: 30 0RF finasteride 5 mg Tablet 5 mg PO QDAY Qty: 30 0RF Discontinued Novolin 70-30 FlexPen U-100 100 unit/mL (70-30) Insulin Pen 20 unit SUBCUT QAM No Action clopidogrel [Plavix] 75 mg Tablet 75 mg PO QDAY aspirin [Bert Low Dose Aspirin] 81 mg Tablet,Delayed Release (Dr/Ec) 81 mg PO QDAY docusate sodium [Colace] 100 mg Capsule 100 mg PO QDAY metoprolol tartrate 25 mg Tablet 50 mg PO BID Ozempic 1 mg/dose (4 mg/3 mL) pen injector 1 mg subcut QWEEK Referrals: Yonny Herrera MD [Primary Care Provider] - Patient/Caregiver Discharge Instructions Discharge Activity: as per physical therapy Education Materials: Diabetes Treating Minor Foot ..., Diabetes: Keeping Feet Healthy, Diabetes: Inspecting Your Feet, Blood Sugar Monitoring and ..., Diabetes Exercise Plan, Diabetes: Meal Planning, Diabetes Carbs Fats Protein Print Language: Upper Sorbian Stand Alone Forms: Martha Award Info., Patient Portal Info Letter Discharge Order Discharge Orders: Discharge (Routine); Ordered 04/08/24 Ordered By: Reinier Bowden Quality Discharge Quality Measures VTE prophylaxis MD Attestestation MD Attestation Patient seen and examined with resident physician Dr. Hills. Note reviewed, agree with findings and recommendations. Patient admitted with a right toe diabetic ulcer probably related to a tight shoe and uncontrolled diabetes. Peripheral vascular disease noted on the right leg. Wound care consultation arranged as an outpatient. Patient will be discharged on antibiotics. Needs aggressive blood sugar control. Plan of care discussed with daughter at bedside
[2024-04-08] MEDS: sitaGLIPtin PHOSPHATE 50 MG TABLET PO (08:30)
[2024-04-08] MEDS: DOCUSATE SOD 100 MG CAPSULE PO (08:30)
[2024-04-08] MEDS: ASPIRIN EC 81 MG TABEC PO (08:30)
[2024-04-08] MEDS: ATORVASTATIN CALCIUM 20 MG TABLET PO (08:30)
[2024-04-08] MEDS: CLOPIDOGREL BISULFATE 75 MG TABLET PO (08:31)
[2024-04-08] MEDS: FINASTERIDE 5 MG TABLET PO (08:31)
[2024-04-08] MEDS: INSULIN GLARGINE (Lantus) 5 UNIT/0.05 ML (PER 5 UNITS) 20 UNIT SC (08:32)
[2024-04-08 09:36] VITALS: BMI 28.4
--- NOTE | 2024-04-08 10:23 | PC.SS ---
SS [facility] referral [facility]. SS has called and confirmed with [facility] they have received referral for wound on right big toe and will contact pt with follow up appointment. SS met with pt and provided him with [facility] Resource List which contains [facility] phone# and address.
--- NOTE | 2024-04-08 10:50 | PC.NURSE ---
[employer] at bedside providing pt with Diabetic information to pt and daughter. Additional resources provided to pt on discharge as well as wound care supplies/teaching. Discharge teaching/info on my part completed pt ready to DC after ref[employer] consultation.
== END 2024-04-08 11:02 | disposition home or self-care (01) | DRG 638 ==
LOC: SERX 19:14 → SERHOLD 21:14 → S3NX 22:26
PROVIDERS: Physician Assistant; Admitting Provider Internal Medicine; Emergency Provider Emergency Medicine; PCP Internal Medicine; Visit Provider Internal Medicine
DX: E11.621 Type 2 diabetes mellitus with foot ulcer (principal); I25.810 Atherosclerosis of coronary artery bypass graft(s) without angina pectoris; L03.115 Cellulitis of right lower limb; L97.519 Non-pressure chronic ulcer of other part of right foot with unspecified severity; I12.9 Hypertensive chronic kidney disease with stage 1 through stage 4 chronic kidney disease, or unspecified chronic kidney disease; N18.30 Chronic kidney disease, stage 3 unspecified; E11.65 Type 2 diabetes mellitus with hyperglycemia; E11.319 Type 2 diabetes mellitus with unspecified diabetic retinopathy without macular edema; E11.22 Type 2 diabetes mellitus with diabetic chronic kidney disease; I25.10 Atherosclerotic heart disease of native coronary artery without angina pectoris; E11.40 Type 2 diabetes mellitus with diabetic neuropathy, unspecified; E78.00 Pure hypercholesterolemia, unspecified; Z79.4 Long term (current) use of insulin; Z91.148 Patient's other noncompliance with medication regimen for other reason; Z87.891 Personal history of nicotine dependence
CPT/HCPCS: 36415; 71045; 73630; 80053; 80061; 81001; 82570; 83036; 83605; 83615; 83690; 83735; 83880; 83970; 84100; 84145; 84156; 84443; 84484; 85025; 85610; 85652; 85730; 86140; 87040; 87086; 93005; 93925; 96365; 96366; 96367; 99285; J1643; J1815; J2543; J3490; J7040; J7050; A9270

== ENCOUNTER → 2024-04-17 | Outpatient (CLI) | payer MEDICARE, MEDICAID, SELFPAY | END | disposition home or self-care (01) | LOC: SWHD 09:17 | PROVIDERS: PCP Internal Medicine; Referring Provider Internal Medicine; Visit Provider Student in an Organized Health Care Education/Training Program | DX: E11.621 Type 2 diabetes mellitus with foot ulcer (principal); L97.515 Non-pressure chronic ulcer of other part of right foot with muscle involvement without evidence of necrosis; L97.519 Non-pressure chronic ulcer of other part of right foot with unspecified severity; E11.40 Type 2 diabetes mellitus with diabetic neuropathy, unspecified; I10 Essential (primary) hypertension; I25.10 Atherosclerotic heart disease of native coronary artery without angina pectoris | CPT/HCPCS: 97597; 99213; A9270; G0463 ==

== ENCOUNTER → 2024-04-24 | Outpatient (CLI) | payer MEDICARE, SELFPAY | END | disposition home or self-care (01) | LOC: SWHD 12:43 | PROVIDERS: PCP Internal Medicine; Referring Provider Internal Medicine; Visit Provider Student in an Organized Health Care Education/Training Program | DX: E11.621 Type 2 diabetes mellitus with foot ulcer (principal); L97.515 Non-pressure chronic ulcer of other part of right foot with muscle involvement without evidence of necrosis; L97.512 Non-pressure chronic ulcer of other part of right foot with fat layer exposed; E11.40 Type 2 diabetes mellitus with diabetic neuropathy, unspecified; I10 Essential (primary) hypertension; I25.10 Atherosclerotic heart disease of native coronary artery without angina pectoris | CPT/HCPCS: 97597; 11042; A9270 ==

== ENCOUNTER → 2024-05-01 | Outpatient (CLI) | payer MEDICARE, SELFPAY | END | disposition home or self-care (01) | PROVIDERS: PCP Internal Medicine; Referring Provider Internal Medicine; Visit Provider Student in an Organized Health Care Education/Training Program | DX: E11.621 Type 2 diabetes mellitus with foot ulcer (principal); L97.518 Non-pressure chronic ulcer of other part of right foot with other specified severity; L97.516 Non-pressure chronic ulcer of other part of right foot with bone involvement without evidence of necrosis; E11.40 Type 2 diabetes mellitus with diabetic neuropathy, unspecified; I10 Essential (primary) hypertension; I25.10 Atherosclerotic heart disease of native coronary artery without angina pectoris | CPT/HCPCS: 11042; 17250; A9270 ==

== ENCOUNTER 2024-05-03 18:24 | Inpatient (IN) | payer MEDICARE, MEDICAID, SELFPAY ==
[2024-05-03 18:55] VITALS: BP 136/74; PULSE 89; RESP 18; TEMP 37.9; O2SAT 96
--- NOTE | 2024-05-03 19:02 | XR_ITS ---
Examination: Foot, right, 3 views Technique: AP, oblique, lateral views foot, 3 views Date and time of exam: May 03, 2024 1947 hours INDICATIONS: Right foot redness swelling and pain nonhealing ulcer first digit distally, diabetes history FINDINGS: Large soft tissue defect first digit Early cortical bone destruction involving the medial aspect of the distal phalanx first digit Soft tissue vascular calcification IMPRESSION: Early osteomyelitis distal phalanx first digit, consider MRI foot without contrast follow-up
--- NOTE | 2024-05-03 19:03 | PD.EDRME ---
Rapid Medical Screening Exam [facility] Arrival date/time: 05/03/24 18:24 74M with history of HTN and DM presents to ED with worsening open wound on R big toe. Patient recently was admitted for this and finished a 10 day course of doxycycline. Patient has been going to wound care center, but is getting worse in the last few days. Chief Complaint: Ankle/Foot Injury Vital signs: Vital Signs Temperature 100.2 F 05/03/24 18:55 Pulse Rate 89 05/03/24 18:55 Respiratory Rate 18 05/03/24 18:55 Blood Pressure 136/74 H 05/03/24 18:55 Pulse Oximetry (%) 96 05/03/24 18:55 Oxygen Delivery Method Room Air 05/03/24 18:55
[2024-05-03 19:35] LABS: Lactate (Lactic Acid) 1.1 mMol/L (0.4-2.0)
[2024-05-03 19:37] LABS: Basophils # (Auto) 0.1 Thou/mm3 (0.0-0.2); Basophils % (Auto) 0 % (0-2.5); Eosinophils # (Auto) 0.1 Thou/mm3 (0.0-0.5); Eosinophils % (Auto) 1 % (0-10); Hematocrit 33.2 % (41.0-53.0); Hemoglobin 11.1 g/dL (13.5-16.0); Immature Granulocytes % (Auto) 1 % (0-0); Lymphocytes # (Auto) 1.6 Thou/mm3 (1.0-4.8); Lymphocytes % (Auto) 9 % (10-50); Mean Corpuscular HGB Conc 33.4 g/dl (31.0-37.0); Mean Corpuscular Volume 90 fL (80-100); Monocytes # (Auto) 1.6 Thou/mm3 (0.0-0.8); Monocytes % (Auto) 10 % (0-12); Neutrophils # (Auto) 13.2 Thou/mm3 (1.8-7.7); Neutrophils % (Auto) 80 % (37-80); Nucleated Red Blood Cell % 0 /100 WBC (0); Platelet Count 295 Thou/mm3 (140-440); RDW Standard Deviation 43.2 fL (35.1-43.9); White Blood Count 16.6 Thou/mm3 (3.8-10.6)
[2024-05-03 20:06] LABS: Sed Rate (ESR) 79 mm/hr (0-20)
[2024-05-03 20:12] LABS: Alanine Aminotransferase 31 U/L (10-49); Albumin, Serum 3.9 gm/dL (3.4-4.8); Albumin/Globulin Ratio 1.1 (1.2-2.2); Alkaline Phosphatase 94 U/L (46-116); Anion Gap 11 (7-16); Aspartate Amino Transferase 21 U/L (0-34); BUN/Creatinine Ratio 21 Ratio (12-20); Bilirubin,Total 0.4 mg/dL (0.3-1.2); Blood Urea Nitrogen 36 mg/dL (9-23); Calcium 9.8 mg/dL (8.3-10.6); Calcium (Corrected) 9.9 mg/dL (8.5-10.1); Carbon Dioxide 20.8 mMol/L (20.0-31.0); Chloride 102 mMol/L (98-107); Creatinine (Component) 1.7 mg/dL (0.6-1.3); Globulin 3.4 gm/dL (2.3-3.5); Glucose 296 mg/dL (74-106); Osmolality,Calculated 287 (275-295); Potassium 4.5 mMol/L (3.4-5.1); Procalcitonin 0.11 ng/ml (0.0-0.49); Sodium 134 mMol/L (136-145); Total Protein 7.3 gm/dL (5.7-8.2); eGFR 42 See Note
[2024-05-03 21:20] LABS: C-Reactive Protein 18.9 mg/dL (0.0-0.9)
--- NOTE | 2024-05-03 21:28 | PD.EDANKLE ---
Lower Extremity Injury RME/HPI General Chief Complaint: Ankle/Foot Injury Stated Complaint: RIGHT FOOT NOT LOOKING GOOD ; HX DIABETES Time Seen by Provider: 05/03/24 21:26 Arrival date/time: 05/03/24 18:24 Limitations: no limitations RME / HPI RME / HPI Narrative: 05/03/24 18:24 74M with history of HTN and DM presents to ED with worsening open wound on R big toe. Patient recently was admitted for this and finished a 10 day course of doxycycline. Patient has been going to wound care center, but is getting worse in the last few days. DR. ZAIDI MAIN ED EVALUATION: 74 year old male with past medical history significant for longstanding history of hypertension, poorly controlled diabetes for more than 15 years, dyslipidemia, diabetic neuropathy, diabetic retinopathy presents to the Emergency Department with complaint of right big toe open wound. Patient recently was admitted for this and finished a 10 day course of doxycycline, with no improvement. Patient has been going to wound care center, but is getting worse in the last few days. Related Data Home Medications ?Medication ?Instructions ?Recorded ?Confirmed aspirin 81 mg tablet,delayed 81 mg PO QDAY 11/17/17 04/07/24 release (Bert Low Dose Aspirin) clopidogrel 75 mg tablet (Plavix) 75 mg PO QDAY 11/17/17 03/18/20 docusate sodium 100 mg capsule 100 mg PO QDAY 11/17/17 04/07/24 (Colace) Held on 04/07/24. Instructions: takes biacodyl metoprolol tartrate 25 mg tablet 50 mg PO BID 11/17/17 04/07/24 semaglutide 1 mg/dose (4 mg/3 mL) 1 mg subcut QWEEK 04/07/24 04/07/24 subcutaneous pen injector (Ozempic) Previous Rx's ?Medication ?Instructions ?Recorded aspirin 81 mg capsule 81 mg PO QDAY #30 caps 04/08/24 atorvastatin 10 mg tablet (Lipitor) 20 mg (2 x 10 mg) PO HS #30 tabs 04/08/24 bisacodyl 5 mg tablet,delayed 5 mg PO PRN #30 tabs 04/08/24 release clopidogrel 75 mg tablet 75 mg PO QDAY #30 tabs 04/08/24 doxycycline hyclate 100 mg capsule 100 mg PO BID #20 caps 04/08/24 finasteride 5 mg tablet 5 mg PO QDAY #30 tabs 04/08/24 flash glucose sensor (FreeStyle #1 ea 04/08/24 Isngh 14 Day Sensor kit) glipizide 5 mg tablet, extended 5 mg PO BID #60 tabs 04/08/24 release 24 hr insulin glargine 100 unit/mL 20 unit (0.2 mL) SCi BID #2 pens 04/08/24 subcutaneous solution (Lantus U-100 Insulin) insulin lispro 100 unit/mL 0 sliding scale dose SCi AC #2 04/08/24 subcutaneous solution vials insulin syringe-needle U-100 0.5 #10 ea 04/08/24 mL 29 gauge x 1/2 (Insulin Syringe) lisinopril 40 mg tablet 40 mg PO QDAY #30 tabs 04/08/24 metoprolol tartrate 25 mg tablet 50 mg (2 x 25 mg) PO BID #60 tabs 04/08/24 sitagliptin phosphate 50 mg tablet 50 mg PO QDAY #30 tabs 04/08/24 (Januvia) vitamin B complex-vitamin C-folic 1 tab PO Q24H #30 tabs 04/08/24 acid 0.8 mg tablet (Renal-Chata) Allergies Allergy/AdvReac Type Severity Reaction Status Date / Time No Known Allergies Allergy Verified 05/03/24 18:27 Review of Systems Review of Systems Systems Reviewed: All systems reviewed, normal except as documented Past Medical History Past Medical History CARDIAC: Positive Cardiac Disorders, Coronary Artery Disease (CABG), Hypercholesterolemia and Hypertension; Negative Cardiac Arrhythmia GASTROINTESTINAL: Positive Obesity MUSCULOSKELETAL: Positive Arthritis ENDOCRINE: Positive Parathyroid Disease OTHER HISTORY: Positive Hospitalization and Falls Family History FAMILY HISTORY: Positive Family Respiratory Disorders (father had asthma) and Family Cardiac Disorders (father passed from [place]) Surgical History SURGICAL: Positive Cardiac Surgery, Open Heart Surgery, Coronary Artery Bypass Graft, Coronary Stent (X2), Cardiac Catheterization and Angiogram Social History SMOKING STATUS: Never smoker SUBSTANCE USE: does not use ED Exam General Limitations: Present no limitations General appearance: Present alert and in no apparent distress Head Head exam: Present atraumatic, normocephalic and normal inspection Eye Eye exam: Present normal appearance, PERRL and EOMI ENT ENT exam: Present normal exam, normal oropharynx and mucous membranes moist Neck Neck exam: Present normal inspection, full ROM and trachea midline Chest Chest inspection: Present normal inspection and symmetric chest wall rise Respiratory Respiratory exam: Present normal lung sounds bilaterally Cardiovascular Cardiovascular exam: Present regular rate, normal rhythm and normal heart sounds Abdominal Exam Abdominal exam: Present soft and normal bowel sounds Expanded Lower Extremity Exam Top foot image:  1. Dark, gangrene, right medial first toe no discharge 2. Surrounding erythema,warm to touch equal distal pulses, bilateral feet are not cold. Normal cap refill Back Exam Back exam: Present normal inspection and full ROM Neurological Exam Neurological exam: Present alert, oriented X3 and CN II-XII intact Psychiatric Psychiatric exam: Present normal affect and normal mood Skin Skin exam: Present warm, dry, intact and normal color Course Quality Measures none Orders Category Date Time Status COVID-19 Screening Questionnaire NOW Care 05/03/24 21:33 Active Decision to Admit X1 Care 05/03/24 21:33 Completed XR foot comp RT min 3V Stat Exams 05/03/24 19:02 Completed Blood Culture (Lab) Stat Lab 05/03/24 19:17 Received CBC Stat Lab 05/03/24 19:15 Completed CMP [Comprehensive Metabolic Panel] Stat Lab 05/03/24 19:15 Completed CRP [C-Reactive Protein] Stat Lab 05/03/24 19:15 Completed ESR [Sed Rate (ESR)] Stat Lab 05/03/24 19:15 Completed Lactate (Lactic Acid) Stat Lab 05/03/24 19:15 Completed Procalcitonin Stat Lab 05/03/24 19:15 Completed Piper/Tazo 3.375 gm Premix [Zosyn] Med 05/03/24 21:35 Discontinued 3.375 gm in 50 ml IV X1 Vancomycin Inj 1,000 mg Med 05/03/24 21:34 Active Sodium Chloride 0.9% 250 ml [Ns] 250 ml IV X1 Vital Signs Vital signs: Vital Signs Temperature 100.2 F 05/03/24 18:55 Pulse Rate 89 05/03/24 18:55 Respiratory Rate 18 05/03/24 18:55 Blood Pressure 136/74 H 05/03/24 18:55 Pulse Oximetry (%) 96 05/03/24 18:55 Oxygen Delivery Method Room Air 05/03/24 18:55 Extremity Injury, Lower MDM Narrative MDM Narrative:: 74-year-old male with history of related controlled diabetes, hypertension, high cholesterol, returning with worsening diabetic foot that now appears to have some gangrene. In the emergency department temperature was 100.2 but otherwise not tachycardic and not hypotensive. White count is reviewed and interpreted by me. White count is elevated 16,000 which is an increase from his previous at 13,000. Otherwise lactate and procalcitonin are reviewed and are normal. His inflammatory markers are reviewed interpreted by me which are elevated with an ESR of 79 and CRP of 18. Patient has chronic renal insufficiency. X-ray concerning for possible worsening infection. Will admit for IV antibiotic, likely MRI to rule out osteomyelitis, per Dr. Simon Xochitl Gruber am scribing for and in the presence of Dr. Zaidi. Patient data External records reviewed:: [facility] previous records (Reviewed last admission discharge dated 04/08/24, patient admitted for the following: Acute on chronic renal insufficiency) Clinical information provided by:: patient and family (daughter) Social determinants that could affect healthcare access:: none Patient has the following chronic illnesses:: longstanding history of hypertension, poorly controlled diabetes for more than 15 years, dyslipidemia, diabetic neuropathy, diabetic retinopathy How is presenting disease/condition affected by chronic disease/condition?: exacerbated by Evaluation data The following diagnostics were reviewed and interpreted by me:: lab results and radiology exam(s) Lab and/or radiology exams considered but not ordered:: none Interpretation Summary: See above under MDM narrative. RADIOLOGY Procedure(s): XR foot comp RT min 3V Accession Number(s): [id number] cc: Alex Contreras MD; Demetri Hobson PA-C~ Examination: Foot, right, 3 views Technique: AP, oblique, lateral views foot, 3 views Date and time of exam: May 03, 2024 1947 hours INDICATIONS: Right foot redness swelling and pain nonhealing ulcer first digit distally, diabetes history FINDINGS: Large soft tissue defect first digit Early cortical bone destruction involving the medial aspect of the distal phalanx first digit Soft tissue vascular calcification IMPRESSION: Early osteomyelitis distal phalanx first digit, consider MRI foot without contrast follow-up Dictated By: Alex Contreras MD Medications / Prescriptions Medications or Prescriptions considered but not ordered:: none Medication administrations:: Medication Administration History Acetaminophen (Acetaminophen 500 Mg Tablet) 500 mg PO Q6H PRN PRN Reason: Fever > 100.4 Stop: 06/02/24 21:44 Dextrose (Dextrose 50%-Water Inj 50 Ml Syringe) 25 ml IV Q15MIN PRN PRN Reason: BG 50-70 responsive npo pt Stop: 06/02/24 21:36 Dextrose (Dextrose 50%-Water Inj 50 Ml Syringe) 50 ml IV Q15MIN PRN PRN Reason: BG <50 OR BG <70 & pt unresponsive Stop: 06/02/24 21:36 Glucagon (Glucagon Inj 1 Mg Vial) 1 mg IM Q15MIN PRN PRN Reason: BG <70, and no IV access Vancomycin HCl 1,000 mg/ (Sodium Chloride) 250 mls @ 150 mls/hr IV X1 ONE Stop: 05/03/24 23:13 Piperacillin/Tazobactam/Dextrose (Zosyn) 3.375 gm in 50 mls @ 100 mls/hr IV Q6H ALEXIS Stop: 05/11/24 03:59 Sodium Chloride (Ns) 1,000 mls @ 100 mls/hr IV .Q10H ALEXIS Stop: 06/02/24 21:42 Piperacillin/Tazobactam/Dextrose (Zosyn) 3.375 gm in 50 mls @ 100 mls/hr IV X1 ONE Stop: 05/03/24 22:30 Morphine Sulfate (Morphine Sulf Inj 10 Mg/Ml Vial) 1 mg IVP Q6H PRN PRN Reason: PAIN SCALE 4-10(Mod-Sev Ondansetron HCl (Ondansetron Inj 2 Mg/Ml Inj 2 Ml) 4 mg IV Q6H PRN; Protocol PRN Reason: NAUSEA OR VOMITING Stop: 06/02/24 21:44 Discontinued Medications Piperacillin/Tazobactam/Dextrose (Zosyn) 3.375 gm in 50 mls @ 100 mls/hr IV X1 ONE Stop: 05/03/24 22:04 Last Admin: 05/03/24 22:02 Dose: Not Given Documented By: DEVIN Non-Admin Reason: Cancelled by Provider see above Consultations Consultation(s) initiated? (list below): Yes Consultation #1 (Physician, Specialty, Details): Discussed test HPI, PMHx, lab, radiology results and/or management with Dr. Herrera. Will admit for further evaluation and management. Accepts patient for admission. Time: 21:41 Diagnosis Extremity Injury, Lower Differential Diagnosis: other (cellulitis, sepsis, gangrene of toe of right foot) Most likely diagnosis given after review of the tests above:: Gangrene of toe of right foot Hypertension Diabetic foot ulcer associated with type 2 diabetes mellitus CKD stage 3 due to type 2 diabetes mellitus Admission Indicated Admission indicated?: indicated Admission Request Was there a request for admission?: Yes Admission Attestation Admission request attestation: Discussed case with [] from Hospitalist service regarding admission. Discussed patients ED course, exam findings, labs, and radiology results. The Hospitalist [agrees,declines] to accept the patient for admission. Disposition Plan Disposition Plan: Admit Discharge Plan Plan Patient Disposition: Admit Acute Care w/in Hospital Patient condition on transfer: Stable Problem List Clinical Impression: Gangrene of toe of right foot, Hypertension, Diabetic foot ulcer associated with type 2 diabetes mellitus, CKD stage 3 due to type 2 diabetes mellitus
--- NOTE | 2024-05-03 22:04 | PC.NURSE ---
Initial contact with pt. Awake, c/o rt foot pain. Rt ankle/foot swollen/shanika and tender to touch, drsg to rt foot intact clean and dry.
[2024-05-03 22:12] VITALS: BP 142/67; PULSE 82; RESP 18; TEMP 36.9; O2SAT 96
[2024-05-03] MEDS: SODIUM CHLORIDE 0.9% 1000 ML 1,000 ML 100 ML IV (22:27)
[2024-05-03] MEDS: PIPER/TAZO 3.375 GM PREMIX 3.375 GM/50 ML BAG IV (22:27)
[2024-05-03 23:00] VITALS: BP 142/67; PULSE 70; RESP 18; O2SAT 97
[2024-05-03] MEDS: Vancomycin Inj 1,000 MG in SODIUM CHLORIDE 0.9% 250 ML 250 ML 150 MG IV (23:50)
[2024-05-04] VITALS (11 sets, daily range): BP systolic 122–149; BP diastolic 60–88; PULSE 67–84; RESP 16–18; TEMP 36.3–36.9; O2SAT 95–98; BMI 28.3
--- NOTE | 2024-05-04 01:12 | PC.NURSE ---
Sleeping, no distress noted. IVF infusing well via IVAC pump to left hand, site clear.
[2024-05-04 04:54] LABS: Basophils # (Auto) 0.1 Thou/mm3 (0.0-0.2); Basophils % (Auto) 0 % (0-2.5); Eosinophils # (Auto) 0.1 Thou/mm3 (0.0-0.5); Eosinophils % (Auto) 1 % (0-10); Hematocrit 32.9 % (41.0-53.0); Hemoglobin 11.2 g/dL (13.5-16.0); Immature Granulocytes % (Auto) 1 % (0-0); Immature Granulocytes Auto 0.08 Thou/mm3 (0.00-0.00); Lymphocytes # (Auto) 2.1 Thou/mm3 (1.0-4.8); Lymphocytes % (Auto) 14 % (10-50); Mean Corpuscular Volume 88 fL (80-100); Monocytes # (Auto) 1.4 Thou/mm3 (0.0-0.8); Monocytes % (Auto) 10 % (0-12); Neutrophils # (Auto) 11.2 Thou/mm3 (1.8-7.7); Neutrophils % (Auto) 75 % (37-80); Nucleated Red Blood Cell % 0 /100 WBC (0); Platelet Count 299 Thou/mm3 (140-440); RDW Standard Deviation 42.7 fL (35.1-43.9); Red Blood Count 3.73 Miln/mm3 (4.50-5.90)
[2024-05-04 05:11] LABS: Albumin, Serum 3.9 gm/dL (3.4-4.8); Anion Gap 9 (7-16); BUN/Creatinine Ratio 19 Ratio (12-20); Blood Urea Nitrogen 32 mg/dL (9-23); Calcium 9.2 mg/dL (8.3-10.6); Calcium (Corrected) 9.3 mg/dL (8.5-10.1); Carbon Dioxide 22.3 mMol/L (20.0-31.0); Chloride 108 mMol/L (98-107); Creatinine (Component) 1.7 mg/dL (0.6-1.3); Glucose 240 mg/dL (74-106); Osmolality,Calculated 292 (275-295); Phosphorous 3.5 mg/dL (2.4-5.1); Potassium 4.2 mMol/L (3.4-5.1); Sodium 139 mMol/L (136-145); eGFR 42 See Note
--- NOTE | 2024-05-04 08:28 | XR_ITS ---
Examination: MRI right foot, without contrast Date and time of exam: May 04, 2024 1220 hrs. Indications: Nonhealing wound right first digit, undergoing antibiotic therapy the last 10 days Technique: Multiple axial sagittal and coronal images of the right foot have been obtained with the Siemens high-resolution 1.5 [place] MRI scanner. Images obtained include T2-weighted fat-suppressed sagittal sections, TR 3500, TE 46, T2 weighted coronal fat suppressed images, TR 3050, TE 84, T2-weighted transverse fat suppressed images, TR 3260, TE 63, proton density transverse images, TR 4720 TE 46, and T1 weighted coronal images, TR 560, TE 13. Findings: All of the images are degraded by patient motion Cortical bone destruction involving the distal phalanx first digit on the medial side Diffuse edema dorsum of the foot and plantar aspect of the foot No soft tissue abscess Impression: Osteomyelitis involving distal phalanx first digit
[2024-05-04] MEDS: PIPER/TAZO 3.375 GM PREMIX 3.375 GM/50 ML BAG IV ×2 (08:51→22:23)
[2024-05-04] MEDS: SODIUM CHLORIDE 0.9% 1000 ML 1,000 ML 100 ML IV ×2 (10:29→15:24)
--- NOTE | 2024-05-04 10:43 | ESHP_ITS ---
Documentation for date of: 05/04/24 HPI History of Present Illness Chief complaint: Worsening of right toe gangrene History of present illness: Patient is Romanian-speaking and translated with the help of beef lugger A 74-year-old man with significant past medical history of longstanding hypertension, uncontrolled diabetes mellitus, dyslipidemia, diabetic neuropathy, diabetic retinopathy, diabetic foot presented to the hospital with a chief complaints of worsening of his wound on right great toe since 4 days. Patient was admitted in the hospital on 04/06/2024 for diabetic foot secondary to uncontrolled diabetes mellitus and is discharged to home on antibiotics and insulin. Patient was regularly following with the wound care but 4 days back patient tripped over some object and had injury to the right that to really got worsened for which patient came to the hospital. Denies fever, shortness of breath, nausea, vomiting, palpitations, or diarrhea. ED Course: -Initial vitals were blood pressure 136/74 mmHg, pulse rate 89 bpm, respiratory rate 18/min, temperature 100.2 ?F -Labs significant for WBC 15, Hb 11.2, platelets 299, sodium 139, potassium 4.2, chloride 108, BUN 32, creatinine 1.7 -Imaging of the right foot showed osteomyelitis of the distal phalanx of first digit -In the ED, patient was given Zosyn and vancomycin -Patient was admitted for diabetic gangrene and osteomyelitis of first right toe Past medical history: Hypertension, diabetes mellitus, dyslipidemia, diabetic neuropathy, diabetic retinopathy Past surgical history: CABG Social history: Denies smoking, alcohol, other illicit drug abuse Review of Systems Review of Systems Systems Reviewed: All systems reviewed, normal except as documented Past Medical History Past Medical History CARDIAC: Positive Cardiac Disorders, Coronary Artery Disease (CABG), Hypercholesterolemia and Hypertension; Negative Cardiac Arrhythmia GASTROINTESTINAL: Positive Obesity MUSCULOSKELETAL: Positive Arthritis ENDOCRINE: Positive Parathyroid Disease OTHER HISTORY: Positive Hospitalization and Falls Family History FAMILY HISTORY: Positive Family Respiratory Disorders (father had asthma) and Family Cardiac Disorders (father passed from [place]) Surgical History SURGICAL: Positive Cardiac Surgery, Open Heart Surgery, Coronary Artery Bypass Graft, Coronary Stent (X2), Cardiac Catheterization and Angiogram Social History SMOKING STATUS: Never smoker SUBSTANCE USE: does not use Exam Vital Signs Temp Pulse Resp BP Pulse Ox O2 Del Method 98.5 F 84 16 123/69 98 Room Air 05/04/24 08:26 05/04/24 08:26 05/04/24 08:26 05/04/24 08:26 05/04/24 08:26 05/04/24 08:26 Narrative Exam General: Awake. HEENT: Normocephalic, atraumatic, mucous membranes moist. Heart: Regular rate and rhythm, no murmurs. Midline scar due to CABG Lungs: Clear to auscultation with no wheezing or crackles. Abdomen: Soft, nondistended, nontender, positive bowel sounds. ?No guarding or rebound tenderness. Neurologic: Alert and oriented x3, no gross neurological deficit, and patient able to move all 4 extremities. Extremities: Blackish discoloration of entire right toe, foul-smelling discharge noted Skin: No rash or ecchymoses. Results: Labs 05/04/24 04:39 05/04/24 04:39 Labs: Short CBC 05/03/24 05/04/24 Range/Units 19:15 04:39 WBC 16.6 H 15.0 H (3.8-10.6) Thou/mm3 Hgb 11.1 L 11.2 L (13.5-16.0) g/dL Hct 33.2 L 32.9 L (41.0-53.0) % Plt Count 295 D 299 (140-440) Thou/mm3 BMP 05/03/24 05/04/24 19:15 04:39 Sodium 134 L 139 Potassium 4.5 4.2 Chloride 102 108 H Carbon Dioxide 20.8 22.3 BUN 36 H 32 H Creatinine 1.7 H 1.7 H Glucose 296 H 240 H D Calcium 9.8 9.2 Liver Function 05/03/24 05/04/24 Range/Units 19:15 04:39 Total Bilirubin 0.4 (0.3-1.2) mg/dL AST 21 (0-34) U/L ALT 31 (10-49) U/L Alkaline Phosphatase 94 (46-116) U/L Albumin 3.9 3.9 (3.4-4.8) gm/dL Quality Measures Quality Measures none Advance care planning discussed with:: patient Medications Home Medications and Allergies Home Medications ?Medication ?Instructions ?Recorded ?Confirmed ?Type aspirin 81 mg tablet,delayed 81 mg PO QDAY 11/17/17 History release (Bert Low Dose Aspirin) clopidogrel 75 mg tablet (Plavix) 75 mg PO QDAY 03/18/20 History docusate sodium 100 mg capsule 100 mg PO QDAY 11/17/17 04/07/24 History (Colace) Held on 04/07/24. Instructions: takes biacodyl metoprolol tartrate 25 mg tablet 50 mg PO BID 11/17/17 04/07/24 History semaglutide 1 mg/dose (4 mg/3 mL) 1 mg subcut QWEEK 04/07/24 History subcutaneous pen injector (Ozempic) Allergies Allergy/AdvReac Type Severity Reaction Status Date / Time No Known Allergies Allergy Verified 05/03/24 18:27 Visit Medications Acetaminophen (Acetaminophen 500 Mg Tablet) 500 mg PO Q6H PRN PRN Reason: Fever > 100.4 Stop: 06/02/24 21:44 Dextrose (Dextrose 50%-Water Inj 50 Ml Syringe) 25 ml IV Q15MIN PRN PRN Reason: BG 50-70 responsive npo pt Stop: 06/02/24 21:36 Dextrose (Dextrose 50%-Water Inj 50 Ml Syringe) 50 ml IV Q15MIN PRN PRN Reason: BG <50 OR BG <70 & pt unresponsive Stop: 06/02/24 21:36 Glucagon (Glucagon Inj 1 Mg Vial) 1 mg IM Q15MIN PRN PRN Reason: BG <70, and no IV access Sodium Chloride (Ns) 1,000 mls @ 100 mls/hr IV .Q10H COUNTS INCLUDE 234 BEDS AT THE [facility] Stop: 06/02/24 21:42 Last Admin: 05/04/24 10:29 Dose: 100 mls/hr Piperacillin/Tazobactam/Dextrose (Zosyn) 3.375 gm in 50 mls @ 12.5 mls/hr IV Q8HR COUNTS INCLUDE 234 BEDS AT THE [facility] Stop: 05/11/24 06:29 Last Admin: 05/04/24 08:51 Dose: 12.5 mls/hr Morphine Sulfate (Morphine Sulf Inj 10 Mg/Ml Vial) 1 mg IVP Q6H PRN PRN Reason: PAIN SCALE 4-10(Mod-Sev Ondansetron HCl (Ondansetron Inj 2 Mg/Ml Inj 2 Ml) 4 mg IV Q6H PRN; Protocol PRN Reason: NAUSEA OR VOMITING Stop: 06/02/24 21:44 Discontinued Medications Vancomycin HCl 1,000 mg/ (Sodium Chloride) 250 mls @ 150 mls/hr IV X1 ONE Stop: 05/03/24 23:13 Last Infusion: 05/04/24 01:31 Dose: Infused Piperacillin/Tazobactam/Dextrose (Zosyn) 3.375 gm in 50 mls @ 100 mls/hr IV X1 ONE Stop: 05/03/24 22:04 Last Admin: 05/03/24 22:02 Dose: Not Given Piperacillin/Tazobactam/Dextrose (Zosyn) 3.375 gm in 50 mls @ 100 mls/hr IV X1 ONE Stop: 05/03/24 22:30 Last Infusion: 05/03/24 22:57 Dose: Infused Assessment & Plan Plan A 74-year-old man with significant past medical history of longstanding hypertension, uncontrolled diabetes mellitus, dyslipidemia, diabetic neuropathy, diabetic retinopathy, diabetic foot presented to the hospital with a chief complaints of worsening of his wound on right great toe since 4 days and admitted for diabetic foot # Diabetic gangrene of right foot # Early osteomyelitis of distal phalanx of first toe of right foot -Patient had history of 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 -Patient is following with the wound care -Patient noticed recent worsening of the wound with foul-smelling discharge from it since 4 days before the day of admission -Denies fever, nausea, vomiting, palpitations, shortness of breath -Vitals at the time of admission showed temperature of 100.2 ?F, blood pressure 136/74 mmHg -Labs at the time of admission showed WBC 15, hemoglobin 11.2, ESR 79, sodium 139, BUN 32, creatinine 1.7, C-reactive protein 18.9, procalcitonin 0.11, ESR and CRP are elevated, procalcitonin is negative -Imaging of the right foot showed-osteomyelitis of distal phalanx of right first toe Plan -Started on Zosyn and vancomycin [05/03- -Pending blood and wound cultures -Consulted Dr. Lyons and recommended surgery tomorrow -MRI foot is ordered to see the extent of osteomyelitis # Uncontrolled diabetes mellitus -HbA1c during last visit on 04/06/2024 is 13.1 -Glucose at the time of admission is 296 -Patient is discharged on insulin, glipizide, Januvia Plan -Repeat HbA1c is ordered -Started on insulin sliding scale -Hypoglycemia protocol in place # History of hypertension -Blood pressure at the time of admission is 136/74 mmHg -Patient is using metoprolol and lisinopril at home Plan -Will resume lisinopril -Medication reconciliation is ordered and will add other medications according to the blood pressures -Will monitor blood pressures # History of CAD s/p CABG -Patient is using aspirin atorvastatin at home -Medication reconciliation is ordered -Patient is pending for surgery tomorrow -Will held medications for today # Dyslipidemia -Lipid profile is within normal limits on 04/06/2024 -Patient is using statin at home -Medication reconciliation is ordered -Will resume medications once the med rec is done Hospital Maintenance: Dispo: MedSurg DVT ppx: Heparin GI ppx: Not needed Diet: Low carb consistent diet IV lines: Peripheral Code status: Full code Patient plan of care was discussed with the attending physician, Dr. josue Bowden, PGY1 Attending Provider Attestation/Addendum Patient seen and examined with resident physician Dr. Hills. Note reviewed, agree with findings and recommendations. Patient admitted with right toe worsening gangrene. Broad-spectrum antibiotics, MRI, surgical consultation requested.
--- NOTE | 2024-05-04 11:49 | PC.CC ---
Patient is a 74 year-old male who presents to the hospital for osteomyelitis right toe/fever r/o sepsis. Adele DELGADO made [id number] contact with patient. ASW introduced self, role, and reason for visit. Patient appeared alert and oriented to self, location, and situation. Patient was pleasant and engaged in initial assessment. Patient reports he lives with his daughter, Renea Franklin . Per patient, his daughter is his medical decision maker in the event he is unable to make his own medical decisions. Patient reports at home he uses a walker to ambulate and requires some assistance with ADLs. Patient receives primary care with Yonny Herrera and uses [facility]. Upon discharge patient plans to return home and is not open to SNF placement. family services coordinator to follow up with any discharge needs.
[2024-05-04] MEDS: INSULIN LISPRO (AdmeLOG) 1 UNIT/0.01 ML UNIT SC ×2 (16:20→20:54)
--- NOTE | 2024-05-04 20:05 | PD.SURCONS ---
HPI Consult details Consult date: 05/04/24 Reason for consultation narrative: Patient was seen in consultation because of gangrene over the right great toe History of present illness: History of present illness revealed that the patient has had this for the past month and has been going to the wound care where he had some debridement. But it became worse and he came to the hospital. He was admitted with the same problem earlier part of this month and at that time cardiac workup was done which was negative he still had ischemia but was discharged for outpatient management which did not improve. Patient's other medical problem consist of hypertension hyperlipidemia and poorly controlled diabetes and chronic renal problem. Past Medical History Past Medical History NEUROLOGIC: Negative Neurological Disorders, Cerebrovascular Accident, Transient Ischemic Attacks (TIA), Dementia, Alzheimer's Disease, Parkinson's Disease, Brain Tumor, Meningitis, Seizures, Epilepsy, Multiple Sclerosis, Cerebral Palsy, Amyotrophic Lateral Sclerosis (ALS/Yara Gehrig's), Guillain-Siler Syndrome, Spina Bifida, Paralysis, Peripheral Neuropathy, Baptiste's Palsy, Subdural Hematoma, Migraine, Head Trauma, Spinal Cord Injury or Traumatic Brain Injury CARDIAC: Positive Cardiac Disorders, Coronary Artery Disease, Hypercholesterolemia and Hypertension; Negative Myocardial Infarction, Cardiac Arrhythmia, Atrial Fibrillation, Angina, Heart Murmur, Atherosclerotic Heart Disease, Peripheral Vascular Disease, Aneurysm, Congestive Heart Failure, Congenital Heart Disease, Valvular Heart Disease, Rheumatic Fever, Cardiomyopathy, Edema, Pericarditis, Cellulitis, Deep Vein Thrombosis, Hypotension or Varicose Veins RESPIRATORY: Negative Respiratory Disorders, Chronic Obstructive Pulmonary Disease (COPD), Asthma, Bronchitis, Emphysema, Pneumonia, Pulmonary Fibrosis, Cystic Fibrosis, Tuberculosis, Pulmonary Embolism, Pulmonary Edema or Sleep Apnea GASTROINTESTINAL: Positive Obesity; Negative Gastrointestinal Disorders, Hepatitis, Cirrhosis, Pancreatitis, Celiac Disease, Gall Bladder Disease, Gastrointestinal Bleed, Esophageal Varices, Rouse's Esophagus, Colitis, Ulcerative Colitis, Diverticulitis, Diverticulosis, Ulcer, Colorectal Cancer, Irritable Bowel, Crohn's Disease, Obstructive Bowel (CONSTIPATION ONLY), Hiatal Hernia, Hemorrhoids or Gastroesophageal Reflux Disease GENITOURINARY: Negative Genitourinary Disorders, Renal Disease, Kidney Stones, Polycystic Kidney Disease, Neurogenic Bladder, Inguinal Hernia, Dialysis, Prostate Cancer or Benign Prostatic Hyperplasia REPRODUCTIVE: Negative Genital Herpes, Gonorrhea, Syphilis or Testicular Cancer MUSCULOSKELETAL: Positive Arthritis; Negative Musculoskeletal Disorders, Muscular Dystrophy, Myasthenia Gravis, Marfan's Syndrome, Bone Cancer, Rheumatoid Arthritis, Osteoporosis, Degenerative Disk Disease, Gout, Scoliosis, Carpal Tunnel Syndrome, Fibromyalgia, Fractures, Degenerative Joint Disease, Osteomyelitis or Poliovirus ENT: Negative Cataracts, Glaucoma, Blind, Retinal Detachment (RETINAL SWELLING), Macular Degeneration, Ear Infection, Deafness, Head Trauma or Eye Prosthesis ENDOCRINE: Positive Endocrine Disorders, Diabetes Mellitus Type 2 and Parathyroid Disease; Negative Diabetes Mellitus Type 1, Hypoglycemia, Tania's Syndrome, [place]'s Disease, Hyperthyroidism, Hypothyroidism, Pituitary Disease, Systemic Lupus Erythematosus, Syndrome of Inappropriate Antidiuretic Hormone (SIADH), Adrenal Disease or Graves' Disease HEMATOLOGIC: Negative Blood Disorders, Anemia, Leukemia, Hemophilia, Thalassemia, Sickle Cell Disease or Clotting Problems PSYCHO/SOCIAL: Negative Psychiatric Problems, Schizophrenia, Recreational Drug Use, Bipolar Disorder, Depression, Anxiety, Behavior Problems, Self-Mutilation, Attention Deficit Disorder, Attention Deficit Hyperactivity Disorder, Depression, Post Traumatic Stress Disorder or Eating Disorder OTHER HISTORY: Positive Hospitalization and Falls; Negative Autoimmune Disease, Down Syndrome, Autism, Developmental Delay, Shingles, Blood Transfusions, Blood Transfusion Reaction, Anesthesia Reactions, Organ Transplant, Chemotherapy, Radiation Therapy, Hyperbaric Therapy, MRSA, VRSA, Vancomycin-Resistant Enterococci, Human Immunodeficiency Virus (HIV), Chicken Pox, Measles, Mumps, Rubella (Thai Measles), Pertussis, Clostridium Difficile, Cancer, Colorectal Cancer, Lung Cancer, Prostate Cancer or Testicular Cancer Family History FAMILY HISTORY: Positive Family Respiratory Disorders and Family Cardiac Disorders; Negative Family Psychiatric Problems, Family Gastrointestinal Problems, Family Cancer, Family Surgery or Family Anesthesia Reaction Surgical History SURGICAL: Positive Cardiac Surgery, Open Heart Surgery, Coronary Artery Bypass Graft, Coronary Stent, Cardiac Catheterization and Angiogram; Negative Valve Replacement, Vascular Surgery, Pacemaker, Auto Implanted Cardiovert Defib, Carotid Endarterectomy, Endocrine Surgery, Thyroidectomy, Ear Surgery, Tympanostomy Tube, Eye Surgery, Nose Surgery, Oral Surgery, Tonsillectomy, Adenoidectomy, Cochlear Implant, Corneal Transplant, Throat Surgery, Abdominal Surgery, Tracheostomy, Gastric Bypass Surgery, Gastrostomy, Bowel Surgery, Nephrectomy, Transurethral Resection, Joint Replacement, Amputation, Open Reduction Internal Fixation, Arthroscopy, Neurologic Surgery, Brain Shunt, Vasectomy or Organ Transplant Social History SMOKING STATUS: Never smoker SUBSTANCE USE: does not use Meds Home Medications and Allergies Home Medications ?Medication ?Instructions ?Recorded ?Confirmed ?Type aspirin 81 mg tablet,delayed 81 mg PO QDAY 11/17/17 04/07/24 History release (Bert Low Dose Aspirin) clopidogrel 75 mg tablet (Plavix) 75 mg PO QDAY 11/17/17 03/18/20 History docusate sodium 100 mg capsule 100 mg PO QDAY 11/17/17 04/07/24 History (Colace) Held on 04/07/24. Instructions: takes biacodyl metoprolol tartrate 25 mg tablet 50 mg PO BID 11/17/17 04/07/24 History semaglutide 1 mg/dose (4 mg/3 mL) 1 mg subcut QWEEK 04/07/24 04/07/24 History subcutaneous pen injector (Ozempic) Allergies Allergy/AdvReac Type Severity Reaction Status Date / Time No Known Allergies Allergy Verified 05/03/24 18:27 Exam Vital Signs Temp Pulse Resp BP Pulse Ox O2 Del Method 97.3 F 79 18 122/77 98 Room Air 05/04/24 16:00 05/04/24 16:00 05/04/24 16:00 05/04/24 16:00 05/04/24 16:00 05/04/24 16:00 Narrative Exam Physical examination revealed a slightly obese male who speaks Malay he is 5 foot 8 inches tall weighing 186 pounds. His vital signs are normal Routine Cardiovascular Exam Comments: Examination of the chest revealed sternotomy scar due to coronary artery bypass done many years ago Routine Abdominal Exam Comments: Unremarkable Routine Extremities Exam Comments: Examination of the right lower extremity revealed gangrene of the right great toe occupying entire medial half. Pedal pulses are palpable but weak Routine Skin Exam Comments: There is definite dry gangrene on the skin over the great toe. Results Results: Laboratory Laboratory Narrative: Patient's laboratory workup showed leukocytosis of 15,000 Results: Imaging Imaging narrative: X-rays of the right foot revealed a early osteomyelitis of the distal phalanx of the right great toe. The MRI performed today confirmed these findings. Patient had Doppler studies while he was here in the early part of the month which revealed no significant occlusion. Assessment & Plan Additional Assessment Additional comments: Impression: Gangrene of the right great toe Poorly controlled diabetes mellitus Hypertension ASHD with status post coronary artery bypass graft and stent Chronic renal failure Plan Plan: I have advised the patient to undergo amputation of the right great toe. Even though the bone is not involved much and there is no significant osteomyelitis the soft tissues have shown necrosis and amputation is only option patient has had a Doppler studies which showed reasonable good circulation in the lower extremities and I would hope that the incision used for amputation would heal. This was explained to the patient's family and they are agreeable.
--- NOTE | 2024-05-04 20:40 | PC.NURSE ---
Dr. Herrera, made aware pt will be NPO for surgery tomorrow. Order to hold lantus tonight and tomorrow morning.
[2024-05-04] MEDS: METOPROLOL TARTRATE 25 MG TABLET 50 MG PO (20:54)
[2024-05-04] MEDS: ATORVASTATIN CALCIUM 10 MG TABLET 20 MG PO (20:56)
[2024-05-04] MEDS: VIT B12/Vit C/FA (Nephrovite) TABLET 1 TAB PO (20:57)
[2024-05-04] MEDS: HEPARIN SOD INJ 5000 UNIT/ML VIAL SC (21:00)
--- NOTE | 2024-05-04 21:00 | PC.NURSE ---
Dr. Herrera, made aware pt pending surgery tomorrow with Dr. Lyons, hold insulin. orders received, read back, and carried out.
[2024-05-04] MEDS: VANCOMYCIN/NS 750 MG IVPB 750 MG/150 ML BAG 120 MG IV (21:01)
[2024-05-05] VITALS (12 sets, daily range): BP systolic 120–143; BP diastolic 57–78; PULSE 57–120; RESP 14–18; TEMP 36.1–37.1; O2SAT 93–98
[2024-05-05] MEDS: SODIUM CHLORIDE 0.9% 1000 ML 1,000 ML 100 ML IV ×2 (02:32→16:31)
[2024-05-05] MEDS: PIPER/TAZO 3.375 GM PREMIX 3.375 GM/50 ML BAG IV ×3 (05:26→23:14)
[2024-05-05 05:59] LABS: Basophils % (Auto) 0 % (0-2.5); Eosinophils # (Auto) 0.1 Thou/mm3 (0.0-0.5); Eosinophils % (Auto) 1 % (0-10); Hematocrit 29.4 % (41.0-53.0); Immature Granulocytes % (Auto) 1 % (0-0); Immature Granulocytes Auto 0.06 Thou/mm3 (0.00-0.00); Lymphocytes # (Auto) 1.8 Thou/mm3 (1.0-4.8); Lymphocytes % (Auto) 16 % (10-50); Mean Corpuscular Hemoglobin 30.1 pg (25.0-35.0); Mean Corpuscular Volume 89 fL (80-100); Monocytes # (Auto) 1.1 Thou/mm3 (0.0-0.8); Monocytes % (Auto) 9 % (0-12); Neutrophils # (Auto) 8.2 Thou/mm3 (1.8-7.7); Neutrophils % (Auto) 73 % (37-80); Nucleated Red Blood Cell % 0 /100 WBC (0); Platelet Count 269 Thou/mm3 (140-440); Red Blood Count 3.32 Miln/mm3 (4.50-5.90); White Blood Count 11.2 Thou/mm3 (3.8-10.6)
[2024-05-05 06:12] LABS: INR 1.1 (0.9-1.3); Partial Thromboplastin Time 23.4 Seconds (22.0-36.0); Prothrombin Time 11.9 Seconds (9.0-12.2)
[2024-05-05 06:31] LABS: Glucose Estimated Average 258 mg/dL (80-131); Hemoglobin A1C 10.6 % Hgb (4.8-6.0)
[2024-05-05 06:46] LABS: Alanine Aminotransferase 31 U/L (10-49); Albumin, Serum 3.3 gm/dL (3.4-4.8); Albumin/Globulin Ratio 1.2 (1.2-2.2); Alkaline Phosphatase 83 U/L (46-116); Anion Gap 10 (7-16); Aspartate Amino Transferase 22 U/L (0-34); BUN/Creatinine Ratio 17 Ratio (12-20); Bilirubin,Total 0.4 mg/dL (0.3-1.2); Blood Urea Nitrogen 24 mg/dL (9-23); Calcium 8.7 mg/dL (8.3-10.6); Calcium (Corrected) 9.3 mg/dL (8.5-10.1); Carbon Dioxide 18.6 mMol/L (20.0-31.0); Chloride 113 mMol/L (98-107); Creatinine (Component) 1.4 mg/dL (0.6-1.3); Globulin 2.8 gm/dL (2.3-3.5); Glucose 161 mg/dL (74-106); Osmolality,Calculated 290 (275-295); Potassium 4.4 mMol/L (3.4-5.1); Sodium 142 mMol/L (136-145); Total Protein 6.1 gm/dL (5.7-8.2); eGFR 53 See Note
--- NOTE | 2024-05-05 09:53 | ESPR_ITS ---
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 Patient was admitted in the hospital on 04/06/2024 for diabetic foot secondary to uncontrolled diabetes mellitus and is discharged to home on antibiotics and insulin. Patient was regularly following with the wound care but 4 days back patient tripped over some object and had injury to the right that to really got worsened for which patient came to the hospital. Denies fever, shortness of breath, nausea, vomiting, palpitations, or diarrhea. ED Course: -Initial vitals were blood pressure 136/74 mmHg, pulse rate 89 bpm, respiratory rate 18/min, temperature 100.2 ?F -Labs significant for WBC 15, Hb 11.2, platelets 299, sodium 139, potassium 4.2, chloride 108, BUN 32, creatinine 1.7 -Imaging of the right foot showed osteomyelitis of the distal phalanx of first digit -In the ED, patient was given Zosyn and vancomycin -Patient was admitted for diabetic gangrene and osteomyelitis of first right toe Past medical history: Hypertension, diabetes mellitus, dyslipidemia, diabetic neuropathy, diabetic retinopathy Past surgical history: CABG Social history: Denies smoking, alcohol, other illicit drug abuse 05/05/2024 patient currently seen in medical floor. Dr. Lyons was consulted for right toe gangrene. Possible surgery today. Blood sugar slightly elevated. Adjusted medications. Denies any nausea, vomiting. Review of Systems Review of Systems Narrative Review of Systems: CONSTITUTIONAL: Patient denies any fever, chills. HEENT: Denies any visual disturbances or hearing problems. CARDIOVASCULAR: Patient denies any chest pain, shortness of breath, swelling in the lower extremities. PULMONARY: Patient denies any shortness of breath, cough. GASTROINTESTINAL: Patient denies any abdominal pain, constipation, nausea, vomiting, diarrhea. GENITOURINARY: Patient denies any urinary symptoms of burning or frequency or hematuria, denies any form in the urine. SKIN: Right great toe gangrene MUSCULOSKELETAL: Denies any muscular skeletal problems of joint pains. Gait imbalance NEUROLOGICAL: Denies any neurological problems of strokes, seizures or confusion. Denies any memory problems. PSYCHIATRIC: Denies any depression or anxiety. LYMPHATICS : No lymphadenopathy Exam Vital Signs Temp Pulse Resp BP Pulse Ox O2 Del Method 36.1 C 57 L 16 124/62 95 Room Air 05/05/24 08:00 05/05/24 08:00 05/05/24 08:00 05/05/24 08:00 05/05/24 08:00 05/05/24 08:00 Narrative Exam General: Awake. HEENT: Normocephalic, atraumatic, mucous membranes moist. Heart: Regular rate and rhythm, no murmurs. Midline scar due to CABG Lungs: Clear to auscultation with no wheezing or crackles. Abdomen: Soft, nondistended, nontender, positive bowel sounds. ?No guarding or rebound tenderness. Neurologic: Alert and oriented x3, no gross neurological deficit, and patient able to move all 4 extremities. Extremities: Blackish discoloration of entire right toe, foul-smelling discharge noted Skin: No rash or ecchymoses. Objective Labs 05/06/24 04:20 05/05/24 04:50 Labs: Laboratory Results - last 24 hr 05/05/24 04:50 WBC 11.2 H RBC 3.32 L Hgb 10.0 L Hct 29.4 L MCV 89 MCH 30.1 MCHC 34.0 RDW Std Deviation 43.0 Plt Count 269 D Neut % (Auto) 73 Lymph % (Auto) 16 Colbert % (Auto) 9 Eos % (Auto) 1 Baso % (Auto) 0 Neut # (Auto) 8.2 H Lymph # (Auto) 1.8 Colbert # (Auto) 1.1 H Eos # (Auto) 0.1 Baso # (Auto) 0.0 Immature Gran # (Auto) 0.06 H Absolute Nucleated RBC 0.00 Immature Gran % 1 H Nucleated RBC % 0 PT 11.9 INR 1.1 APTT 23.4 Sodium 142 Potassium 4.4 Chloride 113 H Carbon Dioxide 18.6 L Anion Gap 10 BUN 24 H Creatinine 1.4 H Estim Creat Clear Calc 49.0 L eGFR 53 L BUN/Creatinine Ratio 17 [address] Glu mg/dL 258 H Hemoglobin A1c 10.6 H Calculated Osmolality 290 Calcium 8.7 Corrected Calcium 9.3 Total Bilirubin 0.4 AST 22 ALT 31 Alkaline Phosphatase 83 Total Protein 6.1 Albumin 3.3 L D Globulin 2.8 Albumin/Globulin Ratio 1.2 Assessment & Plan Additional Assessment & Plan Additional Plan: A 74-year-old man with significant past medical history of longstanding hypertension, uncontrolled diabetes mellitus, dyslipidemia, diabetic neuropathy, diabetic retinopathy, diabetic foot presented to the hospital with a chief complaints of worsening of his wound on right great toe since 4 days and admitted for diabetic foot # Diabetic gangrene of right foot # Early osteomyelitis of distal phalanx of first toe of right foot -Patient had history of 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 -Patient is following with the wound care -Patient noticed recent worsening of the wound with foul-smelling discharge from it since 4 days before the day of admission -Denies fever, nausea, vomiting, palpitations, shortness of breath -Vitals at the time of admission showed temperature of 100.2 ?F, blood pressure 136/74 mmHg -Labs at the time of admission showed WBC 15, hemoglobin 11.2, ESR 79, sodium 139, BUN 32, creatinine 1.7, C-reactive protein 18.9, procalcitonin 0.11, ESR and CRP are elevated, procalcitonin is negative -Imaging of the right foot showed-osteomyelitis of distal phalanx of right first toe Plan -Started on Zosyn and vancomycin [05/03- -Pending blood and wound cultures -Consulted Dr. Lyons and recommended surgery today -MRI foot showed first distal phalanx osteomyelitis # Uncontrolled diabetes mellitus -HbA1c during last visit on 04/06/2024 is 13.1 -Glucose at the time of admission is 296 -Patient is discharged on insulin, glipizide, Januvia Plan -Repeat HbA1c remains high -Started on insulin sliding scale -Hypoglycemia protocol in place recommended aggressive blood sugar management at home. # History of hypertension -Blood pressure at the time of admission is 136/74 mmHg -Patient is using metoprolol and lisinopril at home Plan -Will resume lisinopril -Medication reconciliation is ordered and will add other medications according to the blood pressures -Will monitor blood pressures # History of CAD s/p CABG -Patient is using aspirin atorvastatin at home -Medication reconciliation is ordered -Patient is pending for surgery tomorrow -Will held medications for today # Dyslipidemia -Lipid profile is within normal limits on 04/06/2024 -Patient is using statin at home -Medication reconciliation is ordered -Will resume medications once the med rec is done Hospital Maintenance: Dispo: MedSurg DVT ppx: Heparin GI ppx: Not needed Diet: Low carb consistent diet IV lines: Peripheral Code status: Full code Quality - progress note Quality Measures Quality Measures: VTE prophylaxis Reason for Continued Stay Reason for Continued Stay: further monitoring
--- NOTE | 2024-05-05 12:25 | SUR.PHASEI ---
Arrived to recovery bay 1 via ramity. Report received from Fred ROACH and Candelario LEYVA. Resting with eyes closed, respirations even and unlabored. No s/o distress or discomfort. Dressing to right foot C/D/I. Responds to name, questions and commands appropriately.
--- NOTE | 2024-05-05 12:27 | ESOP_ITS ---
Date of Procedure 05/05/24 Pre Op Diagnosis Gangrene right great toe Post Op Diagnosis Same with infection and purulent material below the gangrene Procedure Amputation of the right great toe at the metatarsophalangeal level Findings Patient is found to have thick purulent material come out of the medial aspect of the right great toe which was gangrenous. Procedure Description After the patient was brought to the operating room LMA anesthesia was given. Then his right foot was washed with Betadine solution and draped in a sterile manner. Timeout was performed. Then I made an incision over the healthy skin and most of the gangrenous skin was then the medial portion. When I was compressing the gangrenous area purulent material was seen and it was cultured. Then I disarticulated the metatarsal phalangeal joint and removed to phalanges with the amputation. Then the cartilage was cut using bone saw the wound was irrigated with saline solution. There were unhealthy tissues underneath which was debrided. Obviously this was an infected gangrenous toe. After smoothing out the metatarsal head by excising the cartilage skin was closed with interrupted 4-0 nylon sutures. A small portion at the center was left open and packed with quarter inch iodoform gauze. Fluff and Kerlix roll was used to dress the wound. Patient tolerated the procedure well. Anesthesia other (General LMA) Pathology / specimen Other (Amputated right great toe containing 2) Estimated Blood Loss 0 Surgeon Roxanne Garcia MD Surgical Staff Operation Date: 05/05/24 12:45 Case Staff PRESS MACHINE OPERATOR: Candelario Vu Jr, RN First Assistant: Keri Menjivar
--- NOTE | 2024-05-05 12:55 | SUR.PHASEI ---
Report given to Michel ROACH med/surg who is covering for Jeanette ROACH. Taken to room 356 via gurney by Ida ROACH. Resting with eyes open. No c/o pain or discomfort. Responding appropriately to questions and commands. States he is thankful for the care.
[2024-05-05] MEDS: HEPARIN SOD INJ 5000 UNIT/ML VIAL SC ×2 (13:25→21:28)
[2024-05-05] MEDS: INSULIN LISPRO (AdmeLOG) 1 UNIT/0.01 ML UNIT SC ×2 (16:32→21:26)
[2024-05-05] MEDS: VANCOMYCIN/NS 750 MG IVPB 750 MG/150 ML BAG 120 MG IV (21:18)
[2024-05-05] MEDS: INSULIN GLARGINE (Lantus) 5 UNIT/0.05 ML (PER 5 UNITS) 20 UNIT SC (21:27)
[2024-05-05] MEDS: METOPROLOL TARTRATE 25 MG TABLET 50 MG PO (21:30)
[2024-05-05] MEDS: ATORVASTATIN CALCIUM 10 MG TABLET 20 MG PO (21:30)
[2024-05-05] MEDS: VIT B12/Vit C/FA (Nephrovite) TABLET 1 TAB PO (21:30)
[2024-05-06] VITALS (8 sets, daily range): BP systolic 119–139; BP diastolic 58–69; PULSE 60–72; RESP 14–18; TEMP 36.2–37; O2SAT 90–95; BMI 28.1
[2024-05-06] MEDS: SODIUM CHLORIDE 0.9% 1000 ML 1,000 ML 100 ML IV ×2 (03:26→13:46)
[2024-05-06] MEDS: traMADol HCL 50 MG TABLET PO ×2 (03:26→11:59)
[2024-05-06] MEDS: PIPER/TAZO 3.375 GM PREMIX 3.375 GM/50 ML BAG IV ×2 (05:22→13:46)
[2024-05-06] MEDS: HEPARIN SOD INJ 5000 UNIT/ML VIAL SC ×3 (05:22→21:20)
[2024-05-06 06:09] LABS: Basophils # (Auto) 0.1 Thou/mm3 (0.0-0.2); Basophils % (Auto) 0 % (0-2.5); Eosinophils # (Auto) 0.1 Thou/mm3 (0.0-0.5); Eosinophils % (Auto) 1 % (0-10); Hematocrit 27.2 % (41.0-53.0); Hemoglobin 9.3 g/dL (13.5-16.0); Immature Granulocytes % (Auto) 0 % (0-0); Immature Granulocytes Auto 0.05 Thou/mm3 (0.00-0.00); Lymphocytes # (Auto) 2.1 Thou/mm3 (1.0-4.8); Lymphocytes % (Auto) 18 % (10-50); Mean Corpuscular HGB Conc 34.2 g/dl (31.0-37.0); Mean Corpuscular Hemoglobin 30.6 pg (25.0-35.0); Mean Corpuscular Volume 90 fL (80-100); Monocytes # (Auto) 1.1 Thou/mm3 (0.0-0.8); Monocytes % (Auto) 10 % (0-12); Neutrophils # (Auto) 8.1 Thou/mm3 (1.8-7.7); Neutrophils % (Auto) 71 % (37-80); Nucleated Red Blood Cell % 0 /100 WBC (0); Platelet Count 270 Thou/mm3 (140-440); RDW Standard Deviation 43.6 fL (35.1-43.9); Red Blood Count 3.04 Miln/mm3 (4.50-5.90); White Blood Count 11.5 Thou/mm3 (3.8-10.6)
[2024-05-06] MEDS: METOPROLOL TARTRATE 25 MG TABLET 50 MG PO ×2 (08:55→21:19)
[2024-05-06] MEDS: FINASTERIDE 5 MG TABLET PO (08:56)
[2024-05-06] MEDS: INSULIN GLARGINE (Lantus) 5 UNIT/0.05 ML (PER 5 UNITS) 20 UNIT SC ×2 (08:56→21:26)
--- NOTE | 2024-05-06 09:43 | PC.SS ---
Rounding: POD #1 of amputation of right great toe
--- NOTE | 2024-05-06 10:10 | PD.NEPHPROG ---
Documentation for date of: 05/06/24 Subjective Subjective Interval history: Chief complaint: Worsening of right toe gangrene History of present illness: Patient is [place]e-speaking and translated with the help of movie writer A 74-year-old man with significant past medical history of longstanding hypertension, uncontrolled diabetes mellitus, dyslipidemia, diabetic neuropathy, diabetic retinopathy, diabetic foot presented to the hospital with a chief complaints of worsening of his wound on right great toe since 4 days. Patient was admitted in the hospital on 04/06/2024 for diabetic foot secondary to uncontrolled diabetes mellitus and is discharged to home on antibiotics and insulin. Patient was regularly following with the wound care but 4 days back patient tripped over some object and had injury to the right that to really got worsened for which patient came to the hospital. Denies fever, shortness of breath, nausea, vomiting, palpitations, or diarrhea. 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 Lyons. Denies any chest pain, shortness of breath. Denies any nausea, vomiting. Blood pressure 147/73, heart rate 58. Blood sugar 198 Review of Systems Review of Systems Narrative Review of Systems: CONSTITUTIONAL: Patient denies any fever, chills. HEENT: Denies any visual disturbances or hearing problems. CARDIOVASCULAR: Patient denies any chest pain, shortness of breath, swelling in the lower extremities. PULMONARY: Patient denies any shortness of breath, cough. GASTROINTESTINAL: Patient denies any abdominal pain, constipation, nausea, vomiting, diarrhea. GENITOURINARY: Patient denies any urinary symptoms of burning or frequency or hematuria, denies any form in the urine. SKIN: Right great toe amputation MUSCULOSKELETAL: Denies any muscular skeletal problems of joint pains. Gait imbalance NEUROLOGICAL: Denies any neurological problems of strokes, seizures or confusion. Denies any memory problems. PSYCHIATRIC: Denies any depression or anxiety. LYMPHATICS : No lymphadenopathy Exam Vital Signs Temp Pulse Resp BP Pulse Ox O2 Del Method 36.9 C 70 14 119/58 L 90 L Room Air 05/06/24 07:13 05/06/24 08:55 05/06/24 07:13 05/06/24 08:55 05/06/24 07:13 05/06/24 07:13 Narrative Exam General: Awake. HEENT: Normocephalic, atraumatic, mucous membranes moist. Heart: Regular rate and rhythm, no murmurs. Midline scar due to CABG Lungs: Clear to auscultation with no wheezing or crackles. Abdomen: Soft, nondistended, nontender, positive bowel sounds. ?No guarding or rebound tenderness. Neurologic: Alert and oriented x3, no gross neurological deficit, and patient able to move all 4 extremities. Extremities: Status post right great toe amputation Skin: No rash or ecchymoses. Objective Labs 05/06/24 04:20 05/05/24 04:50 Labs: Laboratory Results - last 24 hr 05/06/24 04:20 WBC 11.5 H RBC 3.04 L Hgb 9.3 L Hct 27.2 L MCV 90 MCH 30.6 MCHC 34.2 RDW Std Deviation 43.6 Plt Count 270 Neut % (Auto) 71 Lymph % (Auto) 18 [place] % (Auto) 10 Eos % (Auto) 1 Baso % (Auto) 0 Neut # (Auto) 8.1 H Lymph # (Auto) 2.1 [place] # (Auto) 1.1 H Eos # (Auto) 0.1 Baso # (Auto) 0.1 Immature Gran # (Auto) 0.05 H Absolute Nucleated RBC 0.00 Immature Gran % 0 Nucleated RBC % 0 Assessment & Plan Additional Assessment & Plan Additional Plan: A 74-year-old man with significant past medical history of longstanding hypertension, uncontrolled diabetes mellitus, dyslipidemia, diabetic neuropathy, diabetic retinopathy, diabetic foot presented to the hospital with a chief complaints of worsening of his wound on right great toe since 4 days and admitted for diabetic foot # Diabetic gangrene of right foot # Early osteomyelitis of distal phalanx of first toe of right foot -Patient had history of 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 -Patient is following with the wound care -Patient noticed recent worsening of the wound with foul-smelling discharge from it since 4 days before the day of admission -Denies fever, nausea, vomiting, palpitations, shortness of breath -Vitals at the time of admission showed temperature of 100.2 ?F, blood pressure 136/74 mmHg -Labs at the time of admission showed WBC 15, hemoglobin 11.2, ESR 79, sodium 139, BUN 32, creatinine 1.7, C-reactive protein 18.9, procalcitonin 0.11, ESR and CRP are elevated, procalcitonin is negative -Imaging of the right foot showed-osteomyelitis of distal phalanx of right first toe Plan -Started on Zosyn and vancomycin [05/03- -Pending blood and wound cultures -Consulted Dr. Lyons had a right great toe amputation -MRI foot showed osteomyelitis # Uncontrolled diabetes mellitus -HbA1c during last visit on 04/06/2024 is 13.1 -Glucose at the time of admission is 296 -Patient is discharged on insulin, glipizide, Januvia Plan -Repeat HbA1c remains high -Started on insulin sliding scale -Hypoglycemia protocol in place # History of hypertension -Blood pressure at the time of admission is 136/74 mmHg -Patient is using metoprolol and lisinopril at home Plan -Will resume lisinopril -Medication reconciliation is ordered and will add other medications according to the blood pressures -Will monitor blood pressures # History of CAD s/p CABG -Patient is using aspirin atorvastatin at home -Medication reconciliation is ordered -Patient is pending for surgery tomorrow -Will held medications for today # Dyslipidemia -Lipid profile is within normal limits on 04/06/2024 -Patient is using statin at home -Medication reconciliation is ordered -Will resume medications once the med rec is done Hospital Maintenance: Dispo: MedSurg DVT ppx: Heparin GI ppx: Not needed Diet: Low carb consistent diet IV lines: Peripheral Code status: Full code Discharge planning Home with home health and wound check Quality - progress note Quality Measures Quality Measures: VTE prophylaxis Reason for Continued Stay Reason for Continued Stay: further monitoring
--- NOTE | 2024-05-06 14:50 | PC.DIETICIAN ---
Dietitian recommendation: Add Vitamin C 500mg BID daily, zinc 220mg [id number], daily to ensure adequate nutrient intake and promote wound healing. Continue with Vitamin B complex vitamin. Thank you
[2024-05-06] MEDS: INSULIN LISPRO (AdmeLOG) 1 UNIT/0.01 ML UNIT SC ×2 (16:54→21:26)
[2024-05-06] MEDS: ATORVASTATIN CALCIUM 10 MG TABLET 20 MG PO (21:19)
[2024-05-06] MEDS: VIT B12/Vit C/FA (Nephrovite) TABLET 1 TAB PO (21:19)
[2024-05-06 22:27] LABS: Vancomycin,Trough 8.8 mcg/mL (5.0-10.0)
[2024-05-06] MEDS: VANCOMYCIN/NS 750 MG IVPB 750 MG/150 ML BAG 120 MG IV (22:52)
[2024-05-07] VITALS (7 sets, daily range): BP systolic 120–157; BP diastolic 58–84; PULSE 58–86; RESP 12–20; TEMP 36.1–36.8; O2SAT 93–96
[2024-05-07] MEDS: SODIUM CHLORIDE 0.9% 1000 ML 1,000 ML 100 ML IV (00:19)
[2024-05-07] MEDS: PIPER/TAZO 3.375 GM PREMIX 3.375 GM/50 ML BAG IV ×4 (00:19→22:53)
[2024-05-07] MEDS: traMADol HCL 50 MG TABLET PO (03:34)
[2024-05-07 06:20] LABS: Basophils # (Auto) 0.1 Thou/mm3 (0.0-0.2); Basophils % (Auto) 1 % (0-2.5); Eosinophils # (Auto) 0.2 Thou/mm3 (0.0-0.5); Eosinophils % (Auto) 1 % (0-10); Hematocrit 30.5 % (41.0-53.0); Hemoglobin 10.2 g/dL (13.5-16.0); Immature Granulocytes % (Auto) 1 % (0-0); Immature Granulocytes Auto 0.08 Thou/mm3 (0.00-0.00); Lymphocytes # (Auto) 3.3 Thou/mm3 (1.0-4.8); Lymphocytes % (Auto) 24 % (10-50); Mean Corpuscular HGB Conc 33.4 g/dl (31.0-37.0); Mean Corpuscular Hemoglobin 30.2 pg (25.0-35.0); Mean Corpuscular Volume 90 fL (80-100); Monocytes # (Auto) 1.4 Thou/mm3 (0.0-0.8); Monocytes % (Auto) 10 % (0-12); Neutrophils # (Auto) 9.1 Thou/mm3 (1.8-7.7); Neutrophils % (Auto) 64 % (37-80); Nucleated Red Blood Cell % 0 /100 WBC (0); Platelet Count 311 Thou/mm3 (140-440); RDW Standard Deviation 42.6 fL (35.1-43.9); Red Blood Count 3.38 Miln/mm3 (4.50-5.90); White Blood Count 14.1 Thou/mm3 (3.8-10.6)
[2024-05-07] MEDS: HEPARIN SOD INJ 5000 UNIT/ML VIAL SC ×3 (06:27→20:59)
--- NOTE | 2024-05-07 07:50 | PC.NURSE ---
Patients BS 51 taken on left hand and 60 on right hand, patient alert and oriented x3, denies hypoglycemic symptoms. Dr. Herrera made aware, orders received, read back, and carried out.
[2024-05-07] MEDS: METOPROLOL TARTRATE 25 MG TABLET 50 MG PO ×2 (09:27→20:52)
[2024-05-07] MEDS: bisacodyL 5 MG TABEC PO (09:27)
[2024-05-07] MEDS: FINASTERIDE 5 MG TABLET PO (09:28)
--- NOTE | 2024-05-07 11:06 | PC.NURSE ---
upon report given at bedside, noted left upper extremity swelling, fluids put on hold, pt alert and oriented x3 denies chest discomfort. Dr. Herrera made aware, orders received, read back, and carried out.
--- NOTE | 2024-05-07 11:29 | PC.SS ---
Follow up note: Patient resides with daughter. Surgery for amputation of toe was on the . Patient d/c plan to to return home with services for wound care.
[2024-05-07] MEDS: INSULIN LISPRO (AdmeLOG) 1 UNIT/0.01 ML UNIT SC ×3 (12:17→20:58)
--- NOTE | 2024-05-07 17:20 | PD.RESPRO ---
Documentation for date of: 05/07/24 Subjective Subjective Interval history: Mr. Marc is a 74-year-old man with significant past medical history of longstanding hypertension, uncontrolled diabetes mellitus, dyslipidemia, diabetic neuropathy, diabetic retinopathy, diabetic foot presented to the hospital with a chief complaints of worsening of his wound on right great toe since 4 days. Patient was admitted in the hospital on 04/06/2024 for diabetic foot secondary to uncontrolled diabetes mellitus and is discharged to home on antibiotics and insulin. Patient was regularly following with the wound care but 4 days back patient tripped over some object and had injury to the right that to really got worsened for which patient came to the hospital. Denies fever, shortness of breath, nausea, vomiting, palpitations, or diarrhea. 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 Lyons. Denies any chest pain, shortness of breath. Denies any nausea, vomiting. Blood pressure 147/73, heart rate 58. Blood sugar 198. 05/07/2024. Doing well. Has new symptoms of worsening of symptoms. Denies fever, chills, headaches, chest pain, sob, cough, GI or urinary symptoms. Vitals are stable. Has mild increase in leukocytosis of 14.1, likely reactive following surgery. Renal function continues to improve with creatinine 1.[address] Lyons recommendations regarding wound care and discharge planning. Patient will be going home with home health and wound care. Exam Vital Signs Temp Pulse Resp BP Pulse Ox O2 Del Method 97.2 F 65 16 120/58 L 95 Room Air 05/07/24 08:00 05/07/24 09:27 05/07/24 08:00 05/07/24 09:27 05/07/24 08:00 05/07/24 08:00 Narrative Exam General: Awake. HEENT: Normocephalic, atraumatic, mucous membranes moist. Heart: Regular rate and rhythm, no murmurs. Midline scar due to CABG Lungs: Clear to auscultation with no wheezing or crackles. Abdomen: Soft, nondistended, nontender, positive bowel sounds. ?No guarding or rebound tenderness. Neurologic: Alert and oriented x3, no gross neurological deficit, and patient able to move all 4 extremities. Extremities: Status post right great toe amputation Skin: No rash or ecchymoses. Objective Labs 05/07/24 05:00 05/05/24 04:50 Labs: Laboratory Results - last 24 hr 05/06/24 05/07/24 20:45 05:00 WBC 14.1 H RBC 3.38 L Hgb 10.2 L Hct 30.5 L MCV 90 MCH 30.2 MCHC 33.4 RDW Std Deviation 42.6 Plt Count 311 D Neut % (Auto) 64 Lymph % (Auto) 24 [place] % (Auto) 10 Eos % (Auto) 1 Baso % (Auto) 1 Neut # (Auto) 9.1 H Lymph # (Auto) 3.3 [place] # (Auto) 1.4 H Eos # (Auto) 0.2 Baso # (Auto) 0.1 Immature Gran # (Auto) 0.08 H Absolute Nucleated RBC 0.00 Immature Gran % 1 H Nucleated RBC % 0 Vancomycin Trough 8.8 Quality Measures Quality Measures none Advance care planning discussed with:: patient Assessment & Plan Assessment Current Active Medications: Generic Name Dose Route Start Last Admin Trade Name Freq PRN Reason Stop Dose Admin Acetaminophen 500 mg 05/03/24 21:37 Acetaminophen 500 Mg Tablet PO 06/02/24 21:44 Q6H PRN Fever > 100.4 Atorvastatin Calcium 20 mg 05/04/24 21:00 05/06/24 21:19 Atorvastatin Calcium 10 Mg Tablet PO 06/03/24 20:59 20 mg HS ALEXIS Administration Bisacodyl 5 mg 05/04/24 20:15 05/07/24 09:27 Bisacodyl 5 Mg Tabec PO 06/03/24 20:14 5 mg DAILY PRN Administration CONSTIPATION Protocol Dextrose 25 ml 05/04/24 14:31 Dextrose 50%-Water Inj 50 Ml Syringe IV 06/03/24 14:30 Q15MIN PRN BG 50-70 responsive npo pt Dextrose 50 ml 05/04/24 14:31 Dextrose 50%-Water Inj 50 Ml Syringe IV 06/03/24 14:30 Q15MIN PRN BG <50 OR BG <70 & pt unresponsive Finasteride 5 mg 05/05/24 09:00 05/07/24 09:28 Finasteride 5 Mg Tablet PO 06/04/24 08:59 5 mg QDAY ALEXIS Administration Glucagon 1 mg 05/04/24 14:31 Glucagon Inj 1 Mg Vial IM Q15MIN PRN BG <70, and no IV access Heparin Sodium (Porcine) 5,000 unit 05/04/24 22:00 05/07/24 14:50 Heparin Sod Inj 5000 Unit/Ml Vial SC 05/18/24 21:59 5,000 unit Q8HR ALEXIS Administration Piperacillin/Tazobactam/Dextrose 3.375 gm in 50 mls @ 12.5 mls/hr 05/04/24 06:30 05/07/24 15:00 Zosyn IV 05/11/24 06:29 12.5 mls/hr Q8HR ALEXIS Administration Vancomycin/Sodium Chloride 200 mls @ 120 mls/hr 05/07/24 22:00 Vancomycin/Ns 1 Gm Ivpb IV 05/14/24 21:59 2200 [facility] Protocol Insulin Glargine 24 unit 05/07/24 09:00 05/07/24 08:45 Insulin Glargine (Lantus) 5 Unit/0.05 Ml (Per 5 Units) SC 06/06/24 08:59 Not Given BID [facility] Insulin Human Lispro 0 unit 05/04/24 17:00 05/07/24 12:17 Insulin Lispro (Admelog) 1 Unit/0.01 Ml Unit SC 06/03/24 16:59 2 unit ACHS ALEXIS Administration Protocol Metoprolol Tartrate 50 mg 05/04/24 21:00 05/07/24 09:27 Metoprolol Tartrate 25 Mg Tablet PO 06/03/24 20:59 50 mg BID ALEXIS Administration Morphine Sulfate 1 mg 05/04/24 14:36 Morphine Sulf Inj 10 Mg/Ml Vial IVP 05/09/24 14:35 Q6H PRN BREAKTHROUGH PAIN (SEVERE) Home Medication- 1 mg 05/11/24 09:00 Please Speak With SC 06/10/24 08:59 Patient Caregiver To QWEEK ALEXIS Have Rx Brought To [facility] Ondansetron HCl 4 mg 05/03/24 21:37 Ondansetron Inj 2 Mg/Ml Inj 2 Ml IV 06/02/24 21:44 Q6H PRN NAUSEA OR VOMITING Protocol Pharmacy Consult 1 each 05/04/24 14:30 Vancomycin Pharmacy To Dose 1 Each Each IV 06/03/24 14:29 QDAY PRN PROTOCOL Tramadol HCl 50 mg 05/04/24 14:37 05/07/24 03:34 Tramadol Hcl 50 Mg Tablet PO 05/09/24 14:34 50 mg Q8HR PRN Administration Pain 5-10 Vitamin B Complex/Vit C/Folic Acid 1 tab 05/04/24 21:00 05/06/24 21:19 Vit B12/Vit C/Fa (Nephrovite) Tablet PO 06/03/24 20:59 1 tab Q24H ALEXIS Administration Plan A 74-year-old man with significant past medical history of longstanding hypertension, uncontrolled diabetes mellitus, dyslipidemia, diabetic neuropathy, diabetic retinopathy, diabetic foot presented to the hospital with a chief complaints of worsening of his wound on right great toe since 4 days and admitted for diabetic foot Diabetic gangrene of right foot Early osteomyelitis of distal phalanx of first toe of right foot History of chronic right diabetic foot involving first toe for which he follows up wound care outpatient. Presented with worsening foul/smelly discharge for 4 days. Denied fever, nausea, vomiting, palpitation, SOB. Initially had a fever 100.2, otherwise vitals noted to be normal. Admission labs showed WBC 15, Hgb 11.2, ESR 79, CRP 18.9, Pro-Calc 0.11, elevated ESR and CRP, sodium 139, creatinine 1.7. Imaging showed osteomyelitis of distal phalanx of right first toe. S/p right great toe amputation with general surgery. Has slight worsening of leukocytosis with WBC 14.1 today. Likely reactive following procedure. Wound culture grew Proteus mirabilis, sensitive to ZOSYN. 48-hour blood culture negative. Will continue empirically with VANCOMYCIN as well, often wound culture not reliable. ? Continue ZOSYN and VANCOMYCIN (05/03 to present) ? Pain control Uncontrolled diabetes mellitus Admission GLUCOSE 296. Last A1c 13.1 from 04/2024. Home meds include INSULIN glargine 20 units, GLIPIZIDE, and JANUVIA. Bedside GLUCOSE within acceptable range. ? INSULIN sliding scale ? Accu-Cheks HTN Home medication include METOPROLOL 50 mg BID and LISINOPRIL 40 mg daily. Currently normotensive. ? Resume home meds as indicated ? Daily vitals ? May need adjustment of blood pressure medications discharge. History of CAD s/p CABG Dyslipidemia Lipid panel WNL from 04/2024. ? Continue home ATORVASTATIN 20 mg daily ? Resume home ASPIRIN when able. Hospital Maintenance: Dispo: MedSurg DVT ppx: Heparin GI ppx: Not needed Diet: Low carb consistent diet IV lines: Peripheral Code status: Full code Discharge planning Home with home health and wound check Patient case was discussed with attending, Dr. Herrera. Carlotta De Luna DO PGYI Attending Provider Attestation/Addendum Patient seen and examined with resident physician Dr. Laguerre. Note reviewed, agree with findings and recommendations. Awaiting surgical recommendations for discharge planning. Status post right great toe amputation for gangrene. Spoke to daughter over the phone. Will be discharged on Augmentin. Wound cultures came back positive for Proteus.
[2024-05-07] MEDS: ATORVASTATIN CALCIUM 10 MG TABLET 20 MG PO (20:52)
[2024-05-07] MEDS: VIT B12/Vit C/FA (Nephrovite) TABLET 1 TAB PO (20:53)
[2024-05-07] MEDS: INSULIN GLARGINE (Lantus) 5 UNIT/0.05 ML (PER 5 UNITS) 24 UNIT SC (20:58)
[2024-05-07] MEDS: VANCOMYCIN/NS 1 GM IVPB 200 ML IV (21:00)
[2024-05-08] VITALS: BP 137/77; PULSE 65; RESP 16; TEMP 36.6; O2SAT 92
[2024-05-08 04:00] VITALS: BP 139/79; PULSE 54; RESP 16; TEMP 36.6; O2SAT 94
[2024-05-08] MEDS: PIPER/TAZO 3.375 GM PREMIX 3.375 GM/50 ML BAG IV (05:11)
[2024-05-08] MEDS: HEPARIN SOD INJ 5000 UNIT/ML VIAL SC (05:12)
[2024-05-08 07:26] LABS: Albumin, Serum 3.1 gm/dL (3.4-4.8); Anion Gap 8 (7-16); BUN/Creatinine Ratio 17 Ratio (12-20); Blood Urea Nitrogen 25 mg/dL (9-23); Calcium 8.6 mg/dL (8.3-10.6); Calcium (Corrected) 9.3 mg/dL (8.5-10.1); Carbon Dioxide 21.4 mMol/L (20.0-31.0); Chloride 109 mMol/L (98-107); Creatinine (Component) 1.5 mg/dL (0.6-1.3); Estimated Creatinine Clearance 45.7 mL/min (>60); Glucose 202 mg/dL (74-106); Osmolality,Calculated 286 (275-295); Phosphorous 2.9 mg/dL (2.4-5.1); Potassium 4.3 mMol/L (3.4-5.1); Sodium 138 mMol/L (136-145); eGFR 49 See Note
[2024-05-08] MEDS: INSULIN LISPRO (AdmeLOG) 1 UNIT/0.01 ML UNIT SC (07:51)
[2024-05-08 08:00] VITALS: BP 145/66; PULSE 54; RESP 16; TEMP 36.1; O2SAT 96
[2024-05-08] MEDS: INSULIN GLARGINE (Lantus) 5 UNIT/0.05 ML (PER 5 UNITS) 10 UNIT SC (09:35)
[2024-05-08 09:36] VITALS: BP 131/61; PULSE 63
[2024-05-08] MEDS: FINASTERIDE 5 MG TABLET PO (09:36)
[2024-05-08] MEDS: METOPROLOL TARTRATE 25 MG TABLET 50 MG PO (09:36)
--- NOTE | 2024-05-08 09:53 | PD.RESDS ---
Planned Discharge Date 05/08/24 DS: Providers Provider Date of admission: 05/03/24 21:37 Primary care physician: Yonny Herrera MD Admitting Provider: Yonny Herrera MD Attending Provider on Admission: Yonny Herrera MD Consults: 05/04/24 10:42 Consult to General Surgery Stat Comment: Diabetic foot gangrene Consulting Provider: Roxanne Garcia 05/06/24 11:08 Referral Nutritional Services Routine Comment: Wounds Referral OP Wound Healing Dept Routine Comment: Instructions: Right great toe amputation site, left plantar foot and 3rd toe DM ulcer 05/06/24 11:09 Referral Physical Therapy Routine Comment: Physician Instructions: Instructions: Safe mobilization with Right great toe amputation site and left plantar foot/great toe DM ulcer Referral Wound Care Routine Comment: Right great toe amputation site Attending Provider on DC: Brad Taveras MD Discharging Provider: Brad Taveras MD DS: Diagnosis Problem List Completed Was Problem List Reviewed/Reconciled?: Yes Hospital Course Hospital Course Hospital course: Mr. Marc is a 74-year-old man with significant past medical history of longstanding hypertension, uncontrolled diabetes mellitus, dyslipidemia, diabetic neuropathy, diabetic retinopathy, diabetic foot presented to the hospital with a chief complaints of worsening of his wound on right great toe since 4 days. Patient was admitted in the hospital on 04/06/2024 for diabetic foot secondary to uncontrolled diabetes mellitus and is discharged to home on antibiotics and insulin. Patient was regularly following with the wound care but 4 days back patient tripped over some object and had injury to the right that to really got worsened for which patient came to the hospital. Imaging of the right foot showed osteomyelitis of the distal phalanx of first digit. Patient was started on IV antibiotics and general surgery was consulted. Amputation of the right great toe at the metatarsophalangeal level was performed successfully without any complications and cultures grew Proteus mirabilis. Wound care was initiated and patient is recuperating well and stable for discharge. 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 #Uncontrolled diabetes mellitus #Hypertension #History of CAD s/p CABG #Dyslipidemia Plan: Patient can return home and follow-up with PCP, in 1 week Follow-up with wound care clinic Continue taking Augmentin 1 tablet twice a day for 10 days Continue all other medications as previously prescribed Discontinue duplicated aspirin as well as previous order of doxycycline Please return to the ER if experiencing new or worsening symptoms I discussed patient's care with attending physician, Dr Sharon Taveras PGY3 Status at Discharge Cognitive/behavioral status at discharge: stable Functional status at discharge: independent ambulation Overall status at discharge: patient is progressing back to baseline Time Spent with Patient Time attestation: Total time spent providing and/or coordinating discharge services: 35 min Home Health Home Health Referral Orders: 05/07/24 22:11 Home Health Referral Routine Reason For Exam: rt foot wound, s/p right toe amputation Home-Bound The patient must either because of illness or injury, need the aid of supportive devices such as crutches, canes, wheelchairs, and walkers; the use of special transportation; or the assistance of another person in order to leave their place of residence; OR have a condition such that leaving his or her home is medically contraindicated. In addition, the patient also meets the following criteria: patient is normally unable to leave the home and leaving home requires considerable taxing effort. Addendum to Home Health Certification Practitioner's Certification: I certify that the patient has been under my care in the hospital and the care of attending physician (see below). We had a [id number] encounter on (see date below). My clinical findings indicate that the patient is home bound per the above criteria and the Home Health Services noted in these orders are medically necessary. The primary reason for the shli-[id number] encounter is related to the fact that the patient requires home health services. Date Certifying [id number] Physician Encounter: 05/07/24 Physician's Name who will Assume Oversight for Services: Yonny Herrera Physician's Phone No.who will Assume Oversight for Service: DISABILITY ATTORNEY - Community Resources: No PT to Evaluate: Yes PT to evaluate and provide a treatmnet plan to increase patient's mobility and strength. Wound Care: Yes Home Health RN - Wound Care Order: Right foot wound IV Therapy: No Discontinue PICC Line Once Treatment Complete: No RN Safety Evaluation: Yes RN to evaluate and create a plan of care that will produce positive outcomes. Palliative Treatment: No Palliative treatment and evaluate the need for hospice. Home Health Aide - Personal Care: No Home Health Aide to assist with any ADL's. Exam Vital Signs Temp Pulse Resp BP Pulse Ox O2 Del Method 97.0 F 63 16 131/61 H 96 Room Air 05/08/24 08:00 05/08/24 09:36 05/08/24 08:00 05/08/24 09:36 05/08/24 08:00 05/08/24 08:00 Narrative Exam Constitutional: Well nourished and in no acute distress CVS: RRR, S1 and S2 present, no murmurs, rubs or gallops . RESP: CTAB, no SOB, no rales, rhonchi or wheezing. No respiratory Distress GI: Normal BS, Nontender/Nondistended. MSK: Full range of motion, No trauma or deformities or masses. Status post amputation of the right great toe Skin: Warm to touch, Dry. No rashes or lesions. 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 Sensation grossly intact. Psych: (AAO) x3 . Appropriate mood and affect. Discharge Plan Plan Patient Disposition: Home w/HOME HEALTH Patient condition on transfer: Stable Care Plan Goals: Patient can return home and follow-up with PCP, in 1 week Follow-up with wound care clinic Continue taking Augmentin 1 tablet twice a day for 10 days Continue all other medications as previously prescribed Discontinue duplicated aspirin as well as previous order of doxycycline Please return to the ER if experiencing new or worsening symptoms Prescriptions/Referrals Prescriptions/Med Rec: New amoxicillin-pot clavulanate [Augmentin] 500-125 mg tablet 1 tab PO BID Qty: 20 0RF Continued clopidogrel [Plavix] 75 mg Tablet 75 mg PO QDAY aspirin [Bert Low Dose Aspirin] 81 mg Tablet,Delayed Release (Dr/Ec) 81 mg PO QDAY docusate sodium [Colace] 100 mg Capsule 100 mg PO QDAY metoprolol tartrate 25 mg Tablet 50 mg PO BID Ozempic 1 mg/dose (4 mg/3 mL) pen injector 1 mg subcut QWEEK clopidogrel 75 mg tablet 75 mg PO QDAY Qty: 30 0RF insulin glargine [Lantus U-100 Insulin] 100 unit/mL Solution 20 unit SCi BID Qty: 2 0RF insulin lispro 100 unit/mL Solution 0 sliding scale dose SCi AC Qty: 2 0RF metoprolol tartrate 25 mg Tablet 50 mg PO BID Qty: 60 0RF Januvia 50 mg Tablet 50 mg PO QDAY Qty: 30 0RF (DME) FreeStyle Singh 14 Day Sensor Kit See Rx Instructions .Route Qty: 1 0RF Rx Instructions: As directed (DME) insulin syringe-needle U-100 [Insulin Syringe] 0.5 mL 29 gauge x 1/2 syringe See Rx Instructions .Route Qty: 10 0RF Rx Instructions: As directed atorvastatin [Lipitor] 10 mg Tablet 20 mg PO HS Qty: 30 0RF glipizide 5 mg Tablet Extended Release 24hr 5 mg PO BID Qty: 60 0RF Renal-Chata 0.8 mg tablet 1 tab PO Q24H Qty: 30 0RF bisacodyl 5 mg tablet,delayed release (DR/EC) 5 mg PO PRN Qty: 30 0RF lisinopril 40 mg Tablet 40 mg PO QDAY Qty: 30 0RF finasteride 5 mg Tablet 5 mg PO QDAY Qty: 30 0RF Discontinued aspirin 81 mg capsule 81 mg PO QDAY Qty: 30 0RF doxycycline hyclate 100 mg capsule 100 mg PO BID Qty: 20 0RF Referrals: Yonny Herrera MD [Primary Care Provider] - Patient/Caregiver Discharge Instructions Discharge Activity: activity as tolerated Education Materials: Preventing Surgical Site Infections Print Language: Yoruba Activity Restrictions/Additional Instructions: Follow-up with Dr. Eliz Bosch in 1 to 2 weeks Stand Alone Forms: Martha Award Info., Patient Portal Info Letter Discharge Order Discharge Orders: Discharge (Routine); Ordered 05/08/24 Ordered By: Brad Taveras Quality Discharge Quality Measures VTE prophylaxis MD Attestestation MD Attestation Patient seen and examined with resident physician Dr. Taveras. Note reviewed, agree with findings and recommendations with few changes made Patient will be discharged home with home health and p.o. antibiotics. Status post right great toe amputation.
[2024-05-08] MEDS: bisacodyL 5 MG TABEC PO (11:01)
--- NOTE | 2024-05-08 17:12 | PC.CC ---
Addendum entered by Saadia Headley RN 05/08/24 17:45: [facility] accepted the pt. Booked [facility]. Start of care date is 05/09/2024. Original Note: No documentation from [facility] on pt preference for HH agency. HH referral sent on [facility]. Awaiting responses. Pending start of care date.
== END 2024-05-08 11:28 | disposition home health service (06) | DRG 256 ==
LOC: SERX 21:51 → SERHOLD 21:57 → S3NX 05-04 15:04 → S3SX 05-07 06:14
PROVIDERS: Physician Assistant; Surgery; Admitting Provider Internal Medicine; Emergency Provider Emergency Medicine; PCP Internal Medicine; Visit Provider Internal Medicine
PROC: (CPT 28820; principal; 2024-05-05 12:30)
DX: E11.52 Type 2 diabetes mellitus with diabetic peripheral angiopathy with gangrene (principal); M86.171 Other acute osteomyelitis, right ankle and foot; E11.319 Type 2 diabetes mellitus with unspecified diabetic retinopathy without macular edema; E11.65 Type 2 diabetes mellitus with hyperglycemia; N18.30 Chronic kidney disease, stage 3 unspecified; I12.9 Hypertensive chronic kidney disease with stage 1 through stage 4 chronic kidney disease, or unspecified chronic kidney disease; E78.00 Pure hypercholesterolemia, unspecified; I25.10 Atherosclerotic heart disease of native coronary artery without angina pectoris; E11.40 Type 2 diabetes mellitus with diabetic neuropathy, unspecified; E11.621 Type 2 diabetes mellitus with foot ulcer; E11.69 Type 2 diabetes mellitus with other specified complication; L97.509 Non-pressure chronic ulcer of other part of unspecified foot with unspecified severity; E11.22 Type 2 diabetes mellitus with diabetic chronic kidney disease; Z95.1 Presence of aortocoronary bypass graft; Z95.5 Presence of coronary angioplasty implant and graft; Z79.4 Long term (current) use of insulin; Z79.82 Long term (current) use of aspirin; D72.829 Elevated white blood cell count, unspecified; Z79.899 Other long term (current) drug therapy; B96.4 Proteus (mirabilis) (morganii) as the cause of diseases classified elsewhere
CPT/HCPCS: 36415; 73630; 73718; 80053; 80069; 80202; 83036; 83605; 84145; 85025; 85610; 85652; 85730; 86140; 87040; 87070; 87075; 87077; 87081; 87186; 87205; 96361; 96365; 96366; 96367; 97162; 99285; A4217; A4649; J1643; J1815; J2543; J3010; J3370; J3371; J7030; J7050; A9270

== ENCOUNTER → 2024-05-13 | Outpatient (CLI) | payer MEDICARE, SELFPAY | END | disposition home or self-care (01) | PROVIDERS: PCP Internal Medicine; Referring Provider Internal Medicine; Visit Provider Student in an Organized Health Care Education/Training Program | DX: I96 Gangrene, not elsewhere classified (principal); E11.621 Type 2 diabetes mellitus with foot ulcer; L97.518 Non-pressure chronic ulcer of other part of right foot with other specified severity; L97.516 Non-pressure chronic ulcer of other part of right foot with bone involvement without evidence of necrosis; E11.40 Type 2 diabetes mellitus with diabetic neuropathy, unspecified; I10 Essential (primary) hypertension; I25.10 Atherosclerotic heart disease of native coronary artery without angina pectoris; Z87.891 Personal history of nicotine dependence | CPT/HCPCS: 11042; A9270 ==

== ENCOUNTER → 2024-05-20 | Outpatient (CLI) | payer MEDICARE, SELFPAY | END | disposition home or self-care (01) | PROVIDERS: PCP Internal Medicine; Referring Provider Internal Medicine; Visit Provider Surgery | DX: I96 Gangrene, not elsewhere classified (principal); E11.621 Type 2 diabetes mellitus with foot ulcer; L97.518 Non-pressure chronic ulcer of other part of right foot with other specified severity; L97.516 Non-pressure chronic ulcer of other part of right foot with bone involvement without evidence of necrosis; E11.40 Type 2 diabetes mellitus with diabetic neuropathy, unspecified; I10 Essential (primary) hypertension; I25.10 Atherosclerotic heart disease of native coronary artery without angina pectoris; Z87.891 Personal history of nicotine dependence | CPT/HCPCS: 11042; A9270 ==

== ENCOUNTER → 2024-05-27 | Outpatient (CLI) | payer MEDICARE, SELFPAY | END | disposition home or self-care (01) | LOC: SWHD 08:59 | PROVIDERS: PCP Internal Medicine; Referring Provider Internal Medicine; Visit Provider Surgery | DX: I96 Gangrene, not elsewhere classified (principal); E11.621 Type 2 diabetes mellitus with foot ulcer; L97.512 Non-pressure chronic ulcer of other part of right foot with fat layer exposed; L97.514 Non-pressure chronic ulcer of other part of right foot with necrosis of bone; E11.40 Type 2 diabetes mellitus with diabetic neuropathy, unspecified; I10 Essential (primary) hypertension; I25.10 Atherosclerotic heart disease of native coronary artery without angina pectoris; Z87.891 Personal history of nicotine dependence | CPT/HCPCS: 11044; A9270 ==

== ENCOUNTER 2024-06-05 10:36 | Outpatient (RCR) | payer MEDICARE, SELFPAY | END 2024-06-05 23:59 | disposition home or self-care (01) | LOC: SWHD 10:36 | PROVIDERS: PCP Internal Medicine; Referring Provider Internal Medicine; Visit Provider Student in an Organized Health Care Education/Training Program | DX: I96 Gangrene, not elsewhere classified (principal); L97.512 Non-pressure chronic ulcer of other part of right foot with fat layer exposed; L97.514 Non-pressure chronic ulcer of other part of right foot with necrosis of bone; E11.40 Type 2 diabetes mellitus with diabetic neuropathy, unspecified; I10 Essential (primary) hypertension; I25.10 Atherosclerotic heart disease of native coronary artery without angina pectoris; Z87.891 Personal history of nicotine dependence | CPT/HCPCS: 11044; 82962; A9270; G0277 ==

== ENCOUNTER 2024-06-10 08:56 | Outpatient (RCR) | payer MEDICARE, SELFPAY | END 2024-07-06 23:59 | disposition home or self-care (01) | LOC: SWHD 08:56 | PROVIDERS: PCP Internal Medicine; Referring Provider Internal Medicine; Visit Provider Student in an Organized Health Care Education/Training Program | DX: I96 Gangrene, not elsewhere classified (principal); L97.512 Non-pressure chronic ulcer of other part of right foot with fat layer exposed; L97.514 Non-pressure chronic ulcer of other part of right foot with necrosis of bone; E11.40 Type 2 diabetes mellitus with diabetic neuropathy, unspecified; I10 Essential (primary) hypertension; I25.10 Atherosclerotic heart disease of native coronary artery without angina pectoris; Z87.891 Personal history of nicotine dependence | CPT/HCPCS: 97597; 82962; A9270; G0277 ==

== ENCOUNTER → 2024-07-15 | Outpatient (CLI) | payer MEDICARE, SELFPAY | END | disposition home or self-care (01) | LOC: SWHD 13:01 | PROVIDERS: PCP Internal Medicine; Referring Provider Internal Medicine; Visit Provider Student in an Organized Health Care Education/Training Program | DX: I96 Gangrene, not elsewhere classified (principal); L97.512 Non-pressure chronic ulcer of other part of right foot with fat layer exposed; L97.418 Non-pressure chronic ulcer of right heel and midfoot with other specified severity; L97.516 Non-pressure chronic ulcer of other part of right foot with bone involvement without evidence of necrosis; E11.40 Type 2 diabetes mellitus with diabetic neuropathy, unspecified; I10 Essential (primary) hypertension; I25.10 Atherosclerotic heart disease of native coronary artery without angina pectoris; Z87.891 Personal history of nicotine dependence | CPT/HCPCS: 97597; 97598; A9270 ==

== ENCOUNTER → 2024-07-22 | Outpatient (CLI) | payer MEDICARE, SELFPAY | END | disposition home or self-care (01) | LOC: SWHD 08:32 | PROVIDERS: PCP Internal Medicine; Referring Provider Internal Medicine; Visit Provider Student in an Organized Health Care Education/Training Program | DX: I96 Gangrene, not elsewhere classified (principal); L97.512 Non-pressure chronic ulcer of other part of right foot with fat layer exposed; L97.422 Non-pressure chronic ulcer of left heel and midfoot with fat layer exposed; L97.514 Non-pressure chronic ulcer of other part of right foot with necrosis of bone; E11.40 Type 2 diabetes mellitus with diabetic neuropathy, unspecified; I10 Essential (primary) hypertension; Z87.891 Personal history of nicotine dependence | CPT/HCPCS: 11044; 11047; 11042; A9270 ==

== ENCOUNTER → 2024-07-29 | Outpatient (CLI) | payer MEDICARE, SELFPAY | END | disposition home or self-care (01) | LOC: SWHD 08:45 | PROVIDERS: PCP Internal Medicine; Referring Provider Internal Medicine; Visit Provider Student in an Organized Health Care Education/Training Program | DX: I96 Gangrene, not elsewhere classified (principal); L97.512 Non-pressure chronic ulcer of other part of right foot with fat layer exposed; L97.514 Non-pressure chronic ulcer of other part of right foot with necrosis of bone; E11.40 Type 2 diabetes mellitus with diabetic neuropathy, unspecified; I10 Essential (primary) hypertension; I25.10 Atherosclerotic heart disease of native coronary artery without angina pectoris; Z87.891 Personal history of nicotine dependence | CPT/HCPCS: 11042; 11045 ×2; A9270 ==

== ENCOUNTER 2024-08-05 11:39 | Outpatient (RCR) | payer MEDICARE, SELFPAY | END 2024-08-05 23:59 | disposition home or self-care (01) | LOC: SWHD 11:39 | PROVIDERS: PCP Internal Medicine; Referring Provider Internal Medicine; Visit Provider Student in an Organized Health Care Education/Training Program | DX: I96 Gangrene, not elsewhere classified (principal); L97.512 Non-pressure chronic ulcer of other part of right foot with fat layer exposed; L97.514 Non-pressure chronic ulcer of other part of right foot with necrosis of bone; E11.40 Type 2 diabetes mellitus with diabetic neuropathy, unspecified; I10 Essential (primary) hypertension; I25.10 Atherosclerotic heart disease of native coronary artery without angina pectoris; Z87.891 Personal history of nicotine dependence | CPT/HCPCS: 82962; G0277 ==

== ENCOUNTER 2024-08-22 12:53 | Emergency (ER) | payer MEDICARE, SELFPAY ==
[2024-08-22 12:54] VITALS: BMI 28.8
[2024-08-22 13:05] VITALS: BP 166/90; PULSE 100; RESP 18; TEMP 37.5; O2SAT 98
--- NOTE | 2024-08-22 13:07 | PD.EDRME ---
Rapid Medical Screening Exam RME Arrival date/time: 08/22/24 12:53 74-year-old male presents emerged part today for complaints of elevated blood sugar Chief Complaint: Recheck/Abnormal Lab/Rx Vital signs: Vital Signs Temperature 99.5 F 08/22/24 13:05 Pulse Rate 100 08/22/24 13:05 Respiratory Rate 18 08/22/24 13:05 Blood Pressure 166/90 H 08/22/24 13:05 Pulse Oximetry (%) 98 08/22/24 13:05 Oxygen Delivery Method Room Air 08/22/24 13:05
[2024-08-22 14:01] LABS: Beta Hydroxybutyrate 0.1 mmol/L (<0.6)
[2024-08-22 14:07] LABS: Basophils # (Auto) 0.1 Thou/mm3 (0.0-0.2); Basophils % (Auto) 0 % (0-2.5); Eosinophils # (Auto) 0.1 Thou/mm3 (0.0-0.5); Eosinophils % (Auto) 1 % (0-10); Hematocrit 34.5 % (41.0-53.0); Hemoglobin 11.4 g/dL (13.5-16.0); Immature Granulocytes Auto 0.09 Thou/mm3 (0.00-0.00); Lymphocytes # (Auto) 2.1 Thou/mm3 (1.0-4.8); Lymphocytes % (Auto) 13 % (10-50); Mean Corpuscular HGB Conc 33.0 g/dl (31.0-37.0); Mean Corpuscular Hemoglobin 29.7 pg (25.0-35.0); Mean Corpuscular Volume 90 fL (80-100); Monocytes # (Auto) 1.4 Thou/mm3 (0.0-0.8); Monocytes % (Auto) 9 % (0-12); Neutrophils # (Auto) 12.0 Thou/mm3 (1.8-7.7); Neutrophils % (Auto) 76 % (37-80); Nucleated Red Blood Cell # 0.00 Thou/mm3 (0.00-0.00); Nucleated Red Blood Cell % 0 /100 WBC (0); Platelet Count 298 Thou/mm3 (140-440); RDW Standard Deviation 46.3 fL (35.1-43.9); Red Blood Count 3.84 Miln/mm3 (4.50-5.90); White Blood Count 15.8 Thou/mm3 (3.8-10.6)
[2024-08-22 14:30] LABS: Alanine Aminotransferase 10 U/L (10-49); Albumin, Serum 4.0 gm/dL (3.4-4.8); Albumin/Globulin Ratio 1.3 (1.2-2.2); Alkaline Phosphatase 99 U/L (46-116); Anion Gap 11 (7-16); Aspartate Amino Transferase 15 U/L (0-34); BUN/Creatinine Ratio 16 Ratio (12-20); Bilirubin,Total 0.3 mg/dL (0.3-1.2); Blood Urea Nitrogen 28 mg/dL (9-23); Calcium 9.2 mg/dL (8.3-10.6); Calcium (Corrected) 9.2 mg/dL (8.5-10.1); Carbon Dioxide 22.3 mMol/L (20.0-31.0); Chloride 105 mMol/L (98-107); Creatinine (Component) 1.7 mg/dL (0.6-1.3); Estimated Creatinine Clearance 40.7 mL/min (>60); Globulin 3.2 gm/dL (2.3-3.5); Osmolality,Calculated 298 (275-295); Potassium 5.1 mMol/L (3.4-5.1); Sodium 138 mMol/L (136-145); Total Protein 7.2 gm/dL (5.7-8.2); eGFR 42 See Note
[2024-08-22 14:32] LABS: Glucose 410 mg/dL (74-106)
[2024-08-22 14:35] LABS: Glucose Estimated Average 151 mg/dL (80-131); Hemoglobin A1C 6.9 % Hgb (4.8-6.0)
[2024-08-22 14:51] VITALS: BP 152/75; PULSE 97; RESP 15; TEMP 37.3; O2SAT 96
[2024-08-22] MEDS: SODIUM CHLORIDE 0.9% 1000 ML 1,000 ML 999 ML IV (15:00)
--- NOTE | 2024-08-22 15:06 | PD.EDRECHK ---
ED Recheck Abnl Lab Rx-RME/HPI General Chief Complaint: Recheck/Abnormal Lab/Rx Stated Complaint: HIGH SUGAR 447 AT WOUND CENTER Time Seen by Provider: 08/22/24 14:10 Arrival date/time: 08/22/24 12:53 Limitations: no limitations RME / HPI RME / HPI narrative: 08/22/24 12:53 74-year-old male presents emerged part today for complaints of elevated blood sugar DR. MARTINEZ MAIN ED EVALUATION: 74 year old male with past medical history significant for longstanding hypertension, uncontrolled diabetes mellitus, dyslipidemia, diabetic neuropathy, diabetic retinopathy, diabetic foot followed by a wound clinic presents to the Emergency Department with complaint of elevated blood glucose, initially reported over 400 mg/dL on arrival, now 389 mg/dL. The patient?s daughter provided most of the history due to the patient?s general weakness. Per daughter, the patient may have consumed something sugary earlier today, which could have contributed to the glucose spike. No other acute complaints reported at this time. Related Data Home Medications ?Medication ?Instructions ?Recorded ?Confirmed aspirin 81 mg tablet,delayed 81 mg PO QDAY 11/17/17 04/07/24 release (Bert Low Dose Aspirin) clopidogrel 75 mg tablet (Plavix) 75 mg PO QDAY 11/17/17 03/18/20 docusate sodium 100 mg capsule 100 mg PO QDAY 11/17/17 04/07/24 (Colace) metoprolol tartrate 25 mg tablet 50 mg PO BID 11/17/17 04/07/24 semaglutide 1 mg/dose (4 mg/3 mL) 1 mg subcut QWEEK 04/07/24 04/07/24 subcutaneous pen injector (Ozempic) Previous Rx's ?Medication ?Instructions ?Recorded atorvastatin 10 mg tablet (Lipitor) 20 mg (2 x 10 mg) PO HS #30 tabs 04/08/24 bisacodyl 5 mg tablet,delayed 5 mg PO PRN #30 tabs 04/08/24 release clopidogrel 75 mg tablet 75 mg PO QDAY #30 tabs 04/08/24 finasteride 5 mg tablet 5 mg PO QDAY #30 tabs 04/08/24 flash glucose sensor (FreeStyle #1 ea 04/08/24 Singh 14 Day Sensor kit) glipizide 5 mg tablet, extended 5 mg PO BID #60 tabs 04/08/24 release 24 hr insulin glargine 100 unit/mL 20 unit (0.2 mL) SCi BID #2 pens 04/08/24 subcutaneous solution (Lantus U-100 Insulin) insulin lispro 100 unit/mL 0 sliding scale dose SCi AC #2 04/08/24 subcutaneous solution vials insulin syringe-needle U-100 0.5 #10 ea 04/08/24 mL 29 gauge x 1/2 (Insulin Syringe) lisinopril 40 mg tablet 40 mg PO QDAY #30 tabs 04/08/24 metoprolol tartrate 25 mg tablet 50 mg (2 x 25 mg) PO BID #60 tabs 04/08/24 sitagliptin phosphate 50 mg tablet 50 mg PO QDAY #30 tabs 04/08/24 (Januvia) vitamin B complex-vitamin C-folic 1 tab PO Q24H #30 tabs 04/08/24 acid 0.8 mg tablet (Renal-Chata) amoxicillin 500 mg-potassium 1 tab PO BID #20 tabs 05/07/24 clavulanate 125 mg tablet (Augmentin) Allergies Allergy/AdvReac Type Severity Reaction Status Date / Time No Known Allergies Allergy Verified 08/22/24 12:58 Review of Systems Review of Systems Systems Reviewed: All systems reviewed, normal except as documented Past Medical History Past Medical History CARDIAC: Positive Cardiac Disorders, Coronary Artery Disease, Hypercholesterolemia and Hypertension GASTROINTESTINAL: Positive Obesity MUSCULOSKELETAL: Positive Arthritis ENDOCRINE: Positive Endocrine Disorders, Diabetes Mellitus Type 2 and Parathyroid Disease OTHER HISTORY: Positive Hospitalization Family History FAMILY HISTORY: Positive Family Cardiac Disorders Surgical History SURGICAL: Positive Cardiac Surgery, Open Heart Surgery, Coronary Artery Bypass Graft, Coronary Stent, Cardiac Catheterization and Angiogram Social History SMOKING STATUS: Never smoker SUBSTANCE USE: does not use ALCOHOL: Never ED Exam General Limitations: Present no limitations General appearance: Present alert and in no apparent distress Head Head exam: Present atraumatic, normocephalic and normal inspection Eye Eye exam: Present normal appearance, PERRL and EOMI ENT ENT exam: Present normal exam, normal oropharynx and mucous membranes moist Neck Neck exam: Present normal inspection, full ROM and trachea midline Chest Chest inspection: Present normal inspection and symmetric chest wall rise Respiratory Respiratory exam: Present normal lung sounds bilaterally Cardiovascular Cardiovascular exam: Present regular rate, normal rhythm and normal heart sounds Abdominal Exam Abdominal exam: Present soft and normal bowel sounds Extremities Exam Extremities exam: Present normal inspection and full ROM Back Exam Back exam: Present normal inspection and full ROM Neurological Exam Neurological exam: Present alert, oriented X3 and CN II-XII intact Psychiatric Psychiatric exam: Present normal affect and normal mood Skin Skin exam: Present warm, dry, intact and normal color Course Quality Measures none Orders Category Date Time Status Glucose [Bedside Blood Glucose] NOW Care 08/22/24 14:21 Active Insert [Insert IV] NOW Care 08/22/24 14:22 Active A1C [Glycohemoglobin w (eAG)] Stat Lab 08/22/24 13:31 Completed Beta Hydroxybutyrate Stat Lab 08/22/24 13:31 Completed CBC Stat Lab 08/22/24 13:31 Completed CMP [Comprehensive Metabolic Panel] Stat Lab 08/22/24 13:31 Completed Insulin Regular Med 08/22/24 15:10 Discontinued 12 unit SC X1 ONE Insulin Regular Med 08/22/24 16:49 Discontinued 5 unit SC X1 ONE Sodium Chloride 0.9% 1000 ml [Ns] 1,000 ml Med 08/22/24 14:21 Discontinued IV 999 mls/hr Vital Signs Vital signs: Vital Signs Temperature 99.5 F 08/22/24 13:05 Pulse Rate 100 08/22/24 13:05 Respiratory Rate 18 08/22/24 13:05 Blood Pressure 166/90 H 08/22/24 13:05 Pulse Oximetry (%) 98 08/22/24 13:05 Oxygen Delivery Method Room Air 08/22/24 13:05 Recheck / Abnormal Lab / Rx MDM Narrative MDM Narrative:: I, Xochitl Nick, am scribing for and in the presence of Dr. Martinez. At 1650 hours, blood glucose is 300. Will give more medication and then discharge home with hyperglycemia. Patient data External records reviewed:: [facility] previous records Clinical information provided by:: patient and family (daughter) Social determinants that could affect healthcare access:: none Patient has the following chronic illnesses:: Longstanding hypertension, uncontrolled diabetes mellitus, dyslipidemia, diabetic neuropathy, diabetic retinopathy, diabetic foot followed by a wound clinic. How is presenting disease/condition affected by chronic disease/condition?: exacerbated by Evaluation data The following diagnostics were reviewed and interpreted by me:: lab results Lab and/or radiology exams considered but not ordered:: none Interpretation Summary: See narrative above. Medications / Prescriptions Medications or Prescriptions considered but not ordered:: none Medication administrations:: Medication Administration History Discontinued Medications Sodium Chloride (Ns) 1,000 mls @ 999 mls/hr IV .Q1H1M ONE Stop: 08/22/24 15:21 Last Infusion: 08/22/24 16:01 Dose: Infused Documented By: Admin: 08/22/24 15:00 Dose: 999 mls/hr Documented By: MARQUIS Insulin Human Regular (Insulin Hum Regular 1 Unit/0.01 Ml (Per Unit)) 12 unit SC X1 ONE Stop: 08/22/24 15:11 Last Admin: 08/22/24 15:20 Dose: 12 unit Documented By: MARQUIS Co-signed By: GM Insulin Human Regular (Insulin Hum Regular 1 Unit/0.01 Ml (Per Unit)) 5 unit SC X1 ONE Stop: 08/22/24 16:50 Last Admin: 08/22/24 17:11 Dose: Not Given Documented By: MARQUIS Non-Admin Reason: Cancelled by Provider see above Consultations Consultation(s) initiated? (list below): No Diagnosis Recheck Differential Diagnosis: other (Hyperglycemia, uncontrolled diabetes mellitus, and dietary-induced glucose spike.) Most likely diagnosis given after review of the tests above:: hyperglycemia Admission Indicated Admission indicated?: not indicated Admission Request Was there a request for admission?: No Disposition Plan Disposition Plan: Discharge Discharge Attestation Discharge Attestation: The patient and all family members were given an opportunity to ask questions and understood the discharge instructions. Discharge instructions specifically effects, indications for sooner follow up or return to the emergency department, and the expected course of current diagnosis. Patient condition: Stable Discharge Plan Plan Patient Disposition: HOME (Self Care) Patient condition on transfer: Stable Prescriptions/Referrals Prescriptions/Med Rec: No Action clopidogrel [Plavix] 75 mg Tablet 75 mg PO QDAY aspirin [Bert Low Dose Aspirin] 81 mg Tablet,Delayed Release (Dr/Ec) 81 mg PO QDAY docusate sodium [Colace] 100 mg Capsule 100 mg PO QDAY metoprolol tartrate 25 mg Tablet 50 mg PO BID Ozempic 1 mg/dose (4 mg/3 mL) pen injector 1 mg subcut QWEEK clopidogrel 75 mg tablet 75 mg PO QDAY Qty: 30 0RF insulin glargine [Lantus U-100 Insulin] 100 unit/mL Solution 20 unit SCi BID Qty: 2 0RF insulin lispro 100 unit/mL Solution 0 sliding scale dose SCi AC Qty: 2 0RF metoprolol tartrate 25 mg Tablet 50 mg PO BID Qty: 60 0RF Januvia 50 mg Tablet 50 mg PO QDAY Qty: 30 0RF (DME) FreeStyle Singh 14 Day Sensor Kit See Rx Instructions .Route Qty: 1 0RF Rx Instructions: As directed (DME) insulin syringe-needle U-100 [Insulin Syringe] 0.5 mL 29 gauge x 1/2 syringe See Rx Instructions .Route Qty: 10 0RF Rx Instructions: As directed atorvastatin [Lipitor] 10 mg Tablet 20 mg PO HS Qty: 30 0RF glipizide 5 mg Tablet Extended Release 24hr 5 mg PO BID Qty: 60 0RF Renal-Chata 0.8 mg tablet 1 tab PO Q24H Qty: 30 0RF bisacodyl 5 mg tablet,delayed release (DR/EC) 5 mg PO PRN Qty: 30 0RF lisinopril 40 mg Tablet 40 mg PO QDAY Qty: 30 0RF finasteride 5 mg Tablet 5 mg PO QDAY Qty: 30 0RF amoxicillin-pot clavulanate [Augmentin] 500-125 mg tablet 1 tab PO BID Qty: 20 0RF Referrals: Yonny Herrera MD [Primary Care Provider] - In 1 week Problem List Clinical Impression: Hyperglycemia Patient/Caregiver Discharge Instructions Print Language: Fijian Stand Alone Forms: Martha Award Info., Patient Portal Info Letter
[2024-08-22] MEDS: INSULIN HUM REGULAR 1 UNIT/0.01 ML (PER UNIT) 12 UNIT SC (15:20)
[2024-08-22 16:07] VITALS: BP 143/64; PULSE 99; RESP 19; TEMP 37.3; O2SAT 98
[2024-08-22 17:20] VITALS: BP 135/70; PULSE 93; RESP 20; TEMP 37.3; O2SAT 97
== END 2024-08-22 17:20 | disposition home or self-care (01) ==
PROVIDERS: Nurse Practitioner Primary Care; Emergency Provider Family Medicine; PCP Internal Medicine
DX: E11.65 Type 2 diabetes mellitus with hyperglycemia (principal); Z79.84 Long term (current) use of oral hypoglycemic drugs; Z79.4 Long term (current) use of insulin
CPT/HCPCS: 36415; 80053; 82010; 83036; 85025; 96360; 99283; J1815; J7030

== ENCOUNTER 2024-08-26 12:08 | Outpatient (RCR) | payer MEDICARE, SELFPAY | END 2024-09-05 23:59 | disposition home or self-care (01) | LOC: SWHD 12:08 | PROVIDERS: PCP Internal Medicine; Referring Provider Internal Medicine; Visit Provider Student in an Organized Health Care Education/Training Program | DX: I96 Gangrene, not elsewhere classified (principal); L97.514 Non-pressure chronic ulcer of other part of right foot with necrosis of bone; L97.518 Non-pressure chronic ulcer of other part of right foot with other specified severity; E11.40 Type 2 diabetes mellitus with diabetic neuropathy, unspecified; I10 Essential (primary) hypertension; I25.10 Atherosclerotic heart disease of native coronary artery without angina pectoris; Z87.891 Personal history of nicotine dependence | CPT/HCPCS: 11044 ×3; 11047 ×4; 82962; A9270; G0277 ==

== ENCOUNTER 2024-09-01 15:27 | Inpatient (IN) | payer MEDICARE, MEDICAID, SELFPAY ==
[2024-09-01] VITALS (7 sets, daily range): BP systolic 147–165; BP diastolic 77–96; PULSE 73–120; RESP 18–22; TEMP 37.1–39.9; O2SAT 96–97; BMI 27.3
--- NOTE | 2024-09-01 15:55 | XR_ITS ---
Examination: AP chest single view Technique one AP portable upright chest single view Date and time: September 01, 2024, 1636 hours Comparison April 06, 2024 INDICATIONS: Sepsis alert today. FINDINGS: Normal heart size CABG Minor subsegmental atelectasis left base. No pulmonary edema or lobar pneumonia Impression : No pulmonary edema or lobar pneumonia
--- NOTE | 2024-09-01 15:55 | EKG_ITS ---
[facility] Test Date: 2024-09-01 Pat Name: SPEEDY GALLEGO Department: Room: - Gender: Male [employer] Developer: : 1950 Requested By: Rachael Weller Order Number: [id number] Reading MD: Rachael Weller Measurements Intervals [place] Rate: 118 P: 0 AL: 128 QRS: -48 QRSD: 86 T: 45 QT: 313 QTc: 440 Interpretive Statements SINUS TACHYCARDIA LEFT AXIS DEVIATION [QRS AXIS < -30] PATTERN CONSISTENT WITH PULMONARY DISEASE Compared to ECG 04/06/2024 19:57:10 Sinus rhythm no longer present T-wave abnormality no longer present /store/S0/[id number].pdf
--- NOTE | 2024-09-01 15:57 | XR_ITS ---
Examination: Foot, right, 2 views Technique: AP, lateral and 2 views Date and time of exam: August 25 1637 hours Comparison May 03, 2024 INDICATIONS: Redness swelling and pain involving the right foot this week. FINDINGS: Amputation at the level of the proximal metatarsals with large soft tissue defect There is cortical bone destruction involving the distal metatarsals on the oblique view This study is limited with no true AP view of the foot IMPRESSION: Osteomyelitis involving the amputated metatarsals, poorly visualized on this limited study
--- NOTE | 2024-09-01 16:22 | PD.EDWEAK ---
ED Weakness RME/HPI General Chief complaint: Weakness Stated complaint: WEAKNESS Time Seen by Provider: 09/01/24 15:53 Source: patient and EMS Arrival date/time: 09/01/24 15:27 Limitations: no limitations RME / HPI RME / HPI Narrative: Patient 74-year-old male with a history of diabetes, hypertension, and a right foot wound. He had a partial amputation of the foot and toes approximately 2 months ago. He was sent here by EMS for reported generalized fatigue and malaise today. EMS reports patient was tachycardic en route and felt warm . Their ambulance was was not equipped with a thermometer for temperature check. Related Data Home Medications ?Medication ?Instructions ?Recorded ?Confirmed aspirin 81 mg tablet,delayed 81 mg PO QDAY 11/17/17 04/07/24 release (Bert Low Dose Aspirin) clopidogrel 75 mg tablet (Plavix) 75 mg PO QDAY 11/17/17 03/18/20 docusate sodium 100 mg capsule 100 mg PO QDAY 11/17/17 04/07/24 (Colace) metoprolol tartrate 25 mg tablet 50 mg PO BID 11/17/17 04/07/24 semaglutide 1 mg/dose (4 mg/3 mL) 1 mg subcut QWEEK 04/07/24 04/07/24 subcutaneous pen injector (AppHeroic) Previous Rx's ?Medication ?Instructions ?Recorded atorvastatin 10 mg tablet (Lipitor) 20 mg (2 x 10 mg) PO HS #30 tabs 04/08/24 bisacodyl 5 mg tablet,delayed 5 mg PO PRN #30 tabs 04/08/24 release clopidogrel 75 mg tablet 75 mg PO QDAY #30 tabs 04/08/24 finasteride 5 mg tablet 5 mg PO QDAY #30 tabs 04/08/24 flash glucose sensor (FreeStyle #1 ea 04/08/24 Singh 14 Day Sensor kit) glipizide 5 mg tablet, extended 5 mg PO BID #60 tabs 04/08/24 release 24 hr insulin glargine 100 unit/mL 20 unit (0.2 mL) SCi BID #2 pens 04/08/24 subcutaneous solution (Lantus U-100 Insulin) insulin lispro 100 unit/mL 0 sliding scale dose SCi AC #2 04/08/24 subcutaneous solution vials insulin syringe-needle U-100 0.5 #10 ea 04/08/24 mL 29 gauge x 1/2 (Insulin Syringe) lisinopril 40 mg tablet 40 mg PO QDAY #30 tabs 04/08/24 metoprolol tartrate 25 mg tablet 50 mg (2 x 25 mg) PO BID #60 tabs 04/08/24 sitagliptin phosphate 50 mg tablet 50 mg PO QDAY #30 tabs 04/08/24 (Januvia) vitamin B complex-vitamin C-folic 1 tab PO Q24H #30 tabs 04/08/24 acid 0.8 mg tablet (Renal-Chata) amoxicillin 500 mg-potassium 1 tab PO BID #20 tabs 05/07/24 clavulanate 125 mg tablet (Augmentin) Allergies Allergy/AdvReac Type Severity Reaction Status Date / Time No Known Allergies Allergy Verified 08/22/24 12:58 Review of Systems Review of Systems Systems Reviewed: All systems reviewed, normal except as documented ED Exam General Limitations: Present no limitations General appearance: Present alert and in no apparent distress Head Head exam: Present atraumatic Eye Eye exam: Present normal appearance, PERRL and EOMI ENT ENT exam: Present normal exam, normal oropharynx and mucous membranes moist Neck Neck exam: Present normal inspection, full ROM and trachea midline Chest Chest inspection: Present normal inspection and symmetric chest wall rise Respiratory Respiratory exam: Present normal lung sounds bilaterally Cardiovascular Cardiovascular exam: Present regular rate, normal rhythm, tachycardia and normal heart sounds Abdominal Exam Abdominal exam: Present soft and normal bowel sounds Extremities Exam Extremities exam: Present normal inspection and full ROM Back Exam Back exam: Present normal inspection and full ROM Neurological Exam Neurological exam: Present alert Psychiatric Psychiatric exam: Present normal affect and normal mood Skin Skin exam: Present warm, dry, intact, normal color and other (There is an open wound at the right distal foot with purulent drainage.) Course Course Course Narrative: At approximately 1630 p.m., his daughter was in the exam room provide further history. Patient had mild weakness yesterday but this increased today. She states she has not had any falls or injuries. She stated that he felt warm and more fatigued today. He has had no vomiting or diarrhea. No changes in urination. He has a chronic right leg wound that has been challenging to heal. She states he had his toes amputated at [facility] in [place], [place]. She states that his wounds were difficult to heal as he has peripheral arterial disease. He developed a wound at his heel after surgery and has been nonweightbearing since. Dr. Miller with general surgery was paged at 20:05. She will refer to Dr. Garcia who performed the surgery. She may be contacted if he is not available. Dr. Rainey was contacted and states he will follow the patient tomorrow. We will admit to medicine. Dr. Herrera, patient's primary doctor was contacted who agrees to admit the patient. Quality Measures Current suspected stage: sepsis Possible source: pulmonary, bone/joint and skin/soft tissue Blood cultures ordered: yes Antibiotic ordered: Yes Pertinent labs: 09/01/24 09/01/24 16:00 19:36 Lactic Acid 3.1 H mMol/L 1.4 mMol/L (0.4-2.0) (0.4-2.0) Procalcitonin 0.89 H ng/ml (0.0-0.49) sepsis Orders Category Date Time Status Bedside Blood Glucose NOW Care 09/01/24 15:55 Active Bedside Influenza A&B Antigen Test NOW Care 09/01/24 17:15 Completed COVID-19 Screening Questionnaire NOW Care 09/01/24 20:35 Active Medical Oncologist Q4H START 00 Care 09/01/24 15:55 Active Decision to Admit X1 Care 09/01/24 20:35 Completed Insert IV NOW Care 09/01/24 15:55 Active Strict Intake and Output Routine Care 09/01/24 15:55 Ordered Urinary Catheter NOW Care 09/01/24 15:55 Active XR chest 1V SEPSIS PROTOCOL Stat Exams 09/01/24 15:55 Completed XR foot comp RT min 3V Stat Exams 09/01/24 15:57 Completed BNP [B-Type Natriuretic Peptide] Stat Lab 09/01/24 16:00 Completed Blood Culture (Lab) Stat Lab 09/01/24 16:00 Received CBC Stat Lab 09/01/24 16:00 Completed COVID-19 Antigen (In-House) Stat Lab 09/01/24 18:16 Completed CRP [C-Reactive Protein] Stat Lab 09/01/24 17:53 Completed Comprehensive Metabolic Panel Stat Lab 09/01/24 16:00 Completed Ketone [Beta Hydroxybutyrate] Stat Lab 09/01/24 17:53 Completed Lactate (Lactic Acid) Stat Lab 09/01/24 16:00 Completed Lactic Acid, 3 HR Stat Lab 09/01/24 19:36 Completed Partial Thromboplastin Time Stat Lab 09/01/24 16:00 Completed Procalcitonin Stat Lab 09/01/24 16:00 Completed Prothrombin Time with INR Stat Lab 09/01/24 16:00 Completed Sed Rate (ESR) Stat Lab 09/01/24 16:00 Completed Urinalysis Stat Lab 09/01/24 19:22 Completed Urine Culture Stat Lab 09/01/24 19:34 Received Wound Cult and GS, Anaer Stat Lab 09/01/24 16:24 Ordered Acetaminophen Tab [Tylenol ES Tab] Med 09/01/24 16:20 Discontinued 1,000 mg PO X1 ONE Piper/Tazo 3.375 gm Premix [Zosyn] Med 09/01/24 16:20 Discontinued 3.375 gm in 50 ml IV X1 Sodium Chloride 0.9% 1000 ml [Ns] 2,052 ml Med 09/01/24 16:21 Discontinued IV 2,052 mls/hr Vancomycin/Water 1Gm Ivpb 200 ml Med 09/01/24 16:30 Discontinued IV X1 EKG (RT) Stat RT 09/01/24 15:55 Draft Vital Signs Vital signs: Vital Signs Pulse Rate 112 H 09/01/24 16:14 Weakness MDM Narrative MDM Narrative:: Patient 74-year-old male with a history of diabetes, hypertension, and a right foot wound. He had a partial amputation of the foot and toes approximately 2 months ago. He was sent here by EMS for reported generalized fatigue and malaise today. EMS reports patient was tachycardic en route and felt warm . Their ambulance was was not equipped with a thermometer for temperature check. On exam, patient is nontoxic-appearing. He did trigger sepsis alert when he arrived. Patient was given antibiotics and a bolus of IV fluids here. Dr. Garcia who performed his amputation was contacted and agrees to follow the patient. We are admitting to Dr. Herrera who will follow the patient. Patient data External records reviewed:: [facility] previous records Clinical information provided by:: patient and family Social determinants that could affect healthcare access:: none Patient has the following chronic illnesses:: Diabetes, hypertension, chronic kidney disease How is presenting disease/condition affected by chronic disease/condition?: exacerbated by Evaluation data The following diagnostics were reviewed and interpreted by me:: lab results (Leukocytosis of 23,000, elevated inflammatory markers) and radiology exam(s) (X-ray evidence of osteomyelitis) Lab and/or radiology exams considered but not ordered:: n/a Interpretation Summary: Osteomyelitis, leukocytosis, UTI Medications / Prescriptions Medications or Prescriptions considered but not ordered:: n/a Medication administrations:: Medication Administration History Discontinued Medications Acetaminophen (Acetaminophen 500 Mg Tablet) 1,000 mg PO X1 ONE Stop: 09/01/24 16:21 Last Admin: 09/01/24 17:56 Dose: 1,000 mg Documented By: CHUCKY Piperacillin/Tazobactam/Dextrose (Zosyn) 3.375 gm in 50 mls @ 100 mls/hr IV X1 ONE Stop: 09/01/24 16:49 Last Infusion: 09/01/24 18:31 Dose: Infused Documented By: Admin: 09/01/24 18:01 Dose: 100 mls/hr Documented By: CHUCKY Sodium Chloride (Ns) 2,052 mls @ 2,052 mls/hr 30 ml/kg infuse over 60 min (2052 ml) IV .Q1H ONE Stop: 09/01/24 17:20 Last Admin: 09/01/24 17:57 Dose: 2,052 mls/hr Documented By: CHUCKY Vancomycin HCl (Vancomycin/Water 1gm Ivpb) 200 mls @ 120 mls/hr IV X1 ONE Stop: 09/01/24 18:09 Last Admin: 09/01/24 18:32 Dose: 120 mls/hr Documented By: CHUCKY See above Consultations Consultation(s) initiated? (list below): Yes Diagnosis Weakness Differential Diagnosis: hypoglycemia, sepsis and dehydration Most likely diagnosis given after review of the tests above:: UTI, sepsis, osteomyelitis Admission Indicated Admission indicated?: indicated Admission Request Was there a request for admission?: Yes Admission Attestation Admission request attestation: Discussed case with [] from Hospitalist service regarding admission. Discussed patients ED course, exam findings, labs, and radiology results. The Hospitalist [agrees,declines] to accept the patient for admission. Disposition Plan Disposition Plan: Admit Discharge Plan Plan Patient Disposition: Admit Acute Care w/in Hospital Patient condition on transfer: Stable Prescriptions/Referrals Prescriptions/Med Rec: No Action clopidogrel [Plavix] 75 mg Tablet 75 mg PO QDAY aspirin [Bert Low Dose Aspirin] 81 mg Tablet,Delayed Release (Dr/Ec) 81 mg PO QDAY docusate sodium [Colace] 100 mg Capsule 100 mg PO QDAY metoprolol tartrate 25 mg Tablet 50 mg PO BID Ozempic 1 mg/dose (4 mg/3 mL) pen injector 1 mg subcut QWEEK clopidogrel 75 mg tablet 75 mg PO QDAY Qty: 30 0RF insulin glargine [Lantus U-100 Insulin] 100 unit/mL Solution 20 unit SCi BID Qty: 2 0RF insulin lispro 100 unit/mL Solution 0 sliding scale dose SCi AC Qty: 2 0RF metoprolol tartrate 25 mg Tablet 50 mg PO BID Qty: 60 0RF Januvia 50 mg Tablet 50 mg PO QDAY Qty: 30 0RF (DME) FreeStyle Singh 14 Day Sensor Kit See Rx Instructions .Route Qty: 1 0RF Rx Instructions: As directed (DME) insulin syringe-needle U-100 [Insulin Syringe] 0.5 mL 29 gauge x 1/2 syringe See Rx Instructions .Route Qty: 10 0RF Rx Instructions: As directed atorvastatin [Lipitor] 10 mg Tablet 20 mg PO HS Qty: 30 0RF glipizide 5 mg Tablet Extended Release 24hr 5 mg PO BID Qty: 60 0RF Renal-Chata 0.8 mg tablet 1 tab PO Q24H Qty: 30 0RF bisacodyl 5 mg tablet,delayed release (DR/EC) 5 mg PO PRN Qty: 30 0RF lisinopril 40 mg Tablet 40 mg PO QDAY Qty: 30 0RF finasteride 5 mg Tablet 5 mg PO QDAY Qty: 30 0RF amoxicillin-pot clavulanate [Augmentin] 500-125 mg tablet 1 tab PO BID Qty: 20 0RF Referrals: Yonny Herrera MD [Primary Care Provider] - In 1 week Problem List Clinical Impression: Sepsis, Acute UTI, Osteomyelitis Patient/Caregiver Discharge Instructions Print Language: Portuguese Stand Alone Forms: Martha Award Info., Patient Portal Info Letter
[2024-09-01 16:24] LABS: Lactate (Lactic Acid) 3.1 mMol/L (0.4-2.0)
[2024-09-01 16:32] LABS: Basophils # (Auto) 0.0 Thou/mm3 (0.0-0.2); Basophils % (Auto) 0 % (0-2.5); Eosinophils # (Auto) 0.0 Thou/mm3 (0.0-0.5); Eosinophils % (Auto) 0 % (0-10); Hematocrit 36.2 % (41.0-53.0); Hemoglobin 11.8 g/dL (13.5-16.0); Immature Granulocytes Auto 0.38 Thou/mm3 (0.00-0.00); Lymphocytes # (Auto) 1.3 Thou/mm3 (1.0-4.8); Lymphocytes % (Auto) 6 % (10-50); Mean Corpuscular HGB Conc 32.6 g/dl (31.0-37.0); Mean Corpuscular Hemoglobin 28.7 pg (25.0-35.0); Mean Corpuscular Volume 88 fL (80-100); Monocytes # (Auto) 1.8 Thou/mm3 (0.0-0.8); Monocytes % (Auto) 8 % (0-12); Neutrophils # (Auto) 19.7 Thou/mm3 (1.8-7.7); Neutrophils % (Auto) 85 % (37-80); Nucleated Red Blood Cell # 0.00 Thou/mm3 (0.00-0.00); Nucleated Red Blood Cell % 0 /100 WBC (0); Platelet Count 468 Thou/mm3 (140-440); RDW Standard Deviation 48.3 fL (35.1-43.9); Red Blood Count 4.11 Miln/mm3 (4.50-5.90); White Blood Count 23.2 Thou/mm3 (3.8-10.6)
[2024-09-01 16:43] LABS: INR 1.2 (0.9-1.3); Partial Thromboplastin Time 28.8 Seconds (22.0-36.0); Prothrombin Time 12.8 Seconds (9.0-12.2)
[2024-09-01 16:54] LABS: Alanine Aminotransferase 48 U/L (10-49); Albumin, Serum 3.5 gm/dL (3.4-4.8); Albumin/Globulin Ratio 1.0 (1.2-2.2); Alkaline Phosphatase 186 U/L (46-116); Anion Gap 13 (7-16); Aspartate Amino Transferase 32 U/L (0-34); BUN/Creatinine Ratio 23 Ratio (12-20); Bilirubin,Total 0.3 mg/dL (0.3-1.2); Blood Urea Nitrogen 41 mg/dL (9-23); Calcium 9.0 mg/dL (8.3-10.6); Calcium (Corrected) 9.4 mg/dL (8.5-10.1); Carbon Dioxide 21.0 mMol/L (20.0-31.0); Chloride 101 mMol/L (98-107); Creatinine (Component) 1.8 mg/dL (0.6-1.3); Estimated Creatinine Clearance 34.8 mL/min (>60); Globulin 3.5 gm/dL (2.3-3.5); Glucose 309 mg/dL (74-106); Osmolality,Calculated 292 (275-295); Potassium 4.6 mMol/L (3.4-5.1); Procalcitonin 0.89 ng/ml (0.0-0.49); Sodium 135 mMol/L (136-145); Total Protein 7.0 gm/dL (5.7-8.2); eGFR 39 See Note
[2024-09-01] MEDS: ACETAMINOPHEN 500 MG TABLET 1000 MG PO (17:56)
[2024-09-01] MEDS: SODIUM CHLORIDE 0.9% 1000 ML 2,052 ML 2052 ML IV (17:57)
[2024-09-01] MEDS: PIPER/TAZO 3.375 GM PREMIX 3.375 GM/50 ML BAG IV (18:01)
[2024-09-01 18:04] LABS: Beta Hydroxybutyrate 0.4 mmol/L (<0.6)
[2024-09-01 18:05] LABS: Sed Rate (ESR) 124 mm/hr (0-20)
[2024-09-01 18:24] LABS: B-Type Natriuretic Peptide 87 pg/mL (0-100)
[2024-09-01] MEDS: VANCOMYCIN/WATER 1GM IVPB 200 ML IV (18:32)
[2024-09-01 18:34] LABS: COVID-19 Antigen (In-House) Negative (Negative)
[2024-09-01 18:34] LABS: C-Reactive Protein 24.9 mg/dL (0.0-0.9)
[2024-09-01 19:23] LABS: Reflex Lactate? Y
[2024-09-01 19:41] LABS: Collection Type, Urine Catheter; Squamous Epithelial Cell,Urine 0 /hpf (0-5)
[2024-09-01 19:43] LABS: Lactic Acid, 3 HR 1.4 mMol/L (0.4-2.0)
[2024-09-01 19:53] LABS: Amorphous Crystals,Urine Present (Absent); Bacteria,Urine 4+; Bilirubin,Urine Negative (Negative); Blood,Urine Trace (Negative); Clarity,Urine Turbid (Clear/Hazy); Color,Urine Yellow (Lt Yel-Yel); Glucose, Urine 3+ (Negative); Ketones,Urine Negative (Negative); Leukocyte Esterase,Urine Positive (Negative); Nitrite,Urine Positive (Negative); PH,Urine 6.0 (5.0-7.0); Protein,Urine 1+ (Neg - Trace); RBC,Urine 6 /hpf (0-3); Specific Gravity,Urine 1.016 (1.001-1.035); Urobilinogen,Urine Negative mg/dL (0.0-1.0); WBC,Urine 134 /hpf (0-5)
--- NOTE | 2024-09-01 22:40 | PD.RESHP ---
Documentation for date of: 09/01/24 [facility] History of Present Illness History of present illness: Serjio Marc is a 74-year-old male with a PMH of T2DM, HLD, HTN, CKD, CAD, TIA (2021), PAD, BPH and depression who was brought in by daughter due to increasing weakness and unresponsiveness. Daughter reports that the weakness started a week ago where she noticed that the patient was not eating, was not himself, and just wanted to sleep. Beginning yesterday, she also started noticing that the right plantar surface of patient's foot was becoming more red. Today, patient apparently became unresponsive and would not react to verbal stimulus. It was reported that patient had a partial amputation of the foot and toes approximately [address] [facility] in [place], [place]. Daughter states that his wounds were difficult to heal as he has peripheral arterial disease. He developed a wound at his heel after surgery and has been non-weightbearing since. In the ED, vitals showed: BP 160/80 HR 112 RR 18 Temp 103.8 SpO2 97% on room air ED Course: CBC showed was notable for marked leukocytosis (WBC 23.2) with neutrophilic predominance, normocytic anemia (Hgb 11.8), and elevated ESR 124. Coagulation panel showed slightly elevated PT. CMP showed high BUN 41, high creatinine 1.8, low eGFR 39, elevated blood glucose 309, elevated alkaline phosphatase 186, high CRP 24.9, and high procalcitonin 0.89. UA showed marked pyuria (WBC 134) with 4+ bacteria, positive urine nitrite and LE, 3+ glucose, and 1+ protein. Imaging: CXR was unremarkable. Foot X-Ray showed osteomyelitis involving the amputated metatarsals (poorly visualized). EKG showed sinus tachycardia with left axis deviation. In the ED, patient was given vancomycin, Zosyn, ceftriaxone, and 2 L NS bolus. Patient was admitted for the work-up and management of sepsis, osteomyelitis r/o, acute UTI and JULIO on CKD. General surgery (Dr. Garcia) was consulted and is closely following the case. Review of Systems Review of Systems Narrative Review of Systems: (per daughter) General: Endorses fever. Denies chills HEENT: Denies congestion or sore throat Heart: Denies chest pain or palpitations Lungs: Denies shortness of breath or cough Abdomen: Endorses loss of appetite. Endorses diarrhea. Denies abdominal pain, nausea, vomiting, constipation or blood in stool Genitourinary: Denies frequency, urgency, dysuria, or hematuria Neurology: Endorses generalized weakness. Denies any changes in vision or difficulty speaking Extremities: Endorses erythema, edema, and warmth of right foot. Review of systems otherwise negative except what is mentioned above. Past Medical History Past Medical History NEUROLOGIC: Negative Neurological Disorders, Cerebrovascular Accident, Transient Ischemic Attacks (TIA), Dementia, Alzheimer's Disease, Parkinson's Disease, Brain Tumor, Meningitis, Seizures, Epilepsy, Multiple Sclerosis, Cerebral Palsy, Amyotrophic Lateral Sclerosis (ALS/Yara Gehrig's), Guillain-Aspers Syndrome, Spina Bifida, Paralysis, Peripheral Neuropathy, Baptiste's Palsy, Subdural Hematoma, Migraine, Head Trauma, Spinal Cord Injury or Traumatic Brain Injury CARDIAC: Positive Cardiac Disorders, Coronary Artery Disease, Hypercholesterolemia, Congestive Heart Failure and Hypertension; Negative Myocardial Infarction, Cardiac Arrhythmia, Atrial Fibrillation, Angina, Heart Murmur, Atherosclerotic Heart Disease, Peripheral Vascular Disease, Aneurysm, Congenital Heart Disease, Valvular Heart Disease, Rheumatic Fever, Cardiomyopathy, Edema, Pericarditis, Cellulitis, Deep Vein Thrombosis, Hypotension or Varicose Veins RESPIRATORY: Negative Chronic Obstructive Pulmonary Disease (COPD), Asthma, Bronchitis, Emphysema, Pneumonia, Pulmonary Fibrosis, Cystic Fibrosis, Tuberculosis, Pulmonary Embolism, Pulmonary Edema or Sleep Apnea GASTROINTESTINAL: Positive Obesity; Negative Gastrointestinal Disorders, Hepatitis, Cirrhosis, Pancreatitis, Celiac Disease, Gall Bladder Disease, Gastrointestinal Bleed, Esophageal Varices, Rouse's Esophagus, Colitis, Ulcerative Colitis, Diverticulitis, Diverticulosis, Ulcer, Colorectal Cancer, Irritable Bowel, Crohn's Disease, Obstructive Bowel, Hiatal Hernia, Hemorrhoids or Gastroesophageal Reflux Disease GENITOURINARY: Negative Genitourinary Disorders, Renal Disease, Kidney Stones, Polycystic Kidney Disease, Neurogenic Bladder, Inguinal Hernia, Dialysis, Prostate Cancer or Benign Prostatic Hyperplasia REPRODUCTIVE: Negative Genital Herpes, Gonorrhea, Syphilis or Testicular Cancer MUSCULOSKELETAL: Positive Arthritis; Negative Musculoskeletal Disorders, Muscular Dystrophy, Myasthenia Gravis, Marfan's Syndrome, Bone Cancer, Rheumatoid Arthritis, Osteoporosis, Degenerative Disk Disease, Gout, Scoliosis, Carpal Tunnel Syndrome, Fibromyalgia, Fractures, Degenerative Joint Disease, Osteomyelitis or Poliovirus ENT: Negative Cataracts, Glaucoma, Blind, Retinal Detachment, Macular Degeneration, Ear Infection, Deafness, Head Trauma or Eye Prosthesis ENDOCRINE: Positive Endocrine Disorders, Diabetes Mellitus Type 2 and Parathyroid Disease; Negative Diabetes Mellitus Type 1, Hypoglycemia, Tania's Syndrome, [place]'s Disease, Hyperthyroidism, Hypothyroidism, Pituitary Disease, Systemic Lupus Erythematosus, Syndrome of Inappropriate Antidiuretic Hormone (SIADH), Adrenal Disease or Graves' Disease HEMATOLOGIC: Negative Blood Disorders, Anemia, Leukemia, Hemophilia, Thalassemia, Sickle Cell Disease or Clotting Problems PSYCHO/SOCIAL: Negative Psychiatric Problems, Schizophrenia, Recreational Drug Use, Bipolar Disorder, Depression, Anxiety, Behavior Problems, Self-Mutilation, Attention Deficit Disorder, Attention Deficit Hyperactivity Disorder, Depression, Post Traumatic Stress Disorder or Eating Disorder OTHER HISTORY: Positive Hospitalization and Falls; Negative Autoimmune Disease, Down Syndrome, Autism, Developmental Delay, Shingles, Blood Transfusions, Blood Transfusion Reaction, Anesthesia Reactions, Organ Transplant, Chemotherapy, Radiation Therapy, Hyperbaric Therapy, MRSA, VRSA, Vancomycin-Resistant Enterococci, Human Immunodeficiency Virus (HIV), Chicken Pox, Measles, Mumps, Rubella (Kyrgyz Measles), Pertussis, Clostridium Difficile, Cancer, Colorectal Cancer, Lung Cancer, Prostate Cancer or Testicular Cancer Family History FAMILY HISTORY: Positive Family Respiratory Disorders and Family Cardiac Disorders; Negative Family Psychiatric Problems, Family Gastrointestinal Problems, Family Cancer, Family Surgery or Family Anesthesia Reaction Surgical History SURGICAL: Positive Cardiac Surgery, Open Heart Surgery, Coronary Artery Bypass Graft, Coronary Stent, Cardiac Catheterization and Angiogram; Negative Valve Replacement, Vascular Surgery, Pacemaker, Auto Implanted Cardiovert Defib, Carotid Endarterectomy, Endocrine Surgery, Thyroidectomy, Ear Surgery, Tympanostomy Tube, Eye Surgery, Nose Surgery, Oral Surgery, Tonsillectomy, Adenoidectomy, Cochlear Implant, Corneal Transplant, Throat Surgery, Abdominal Surgery, Tracheostomy, Gastric Bypass Surgery, Gastrostomy, Bowel Surgery, Nephrectomy, Transurethral Resection, Joint Replacement, Amputation, Open Reduction Internal Fixation, Arthroscopy, Neurologic Surgery, Brain Shunt, Vasectomy or Organ Transplant Social History SMOKING STATUS: Never smoker SUBSTANCE USE: does not use Past Medical History Comments PMH COMMENT: PMH: T2DM, HLD, HTN, CKD, CAD, TIA (2021), PAD, BPH, and depression PSH: open heart valve replacement in 2008, CABG, and big toe amputation (05/05/2024) Medications: sertraline, oxybutynin, others not brought by daughter Allergies: none FH: both parents have history of T2DM and ID, mom had Parkinson's SH: lives in a house in [place] w/ daughter, daughter's , and their two kids, no history of drinking alcohol, smoking, or recreational drug use Exam Vital Signs Temp Pulse Resp BP Pulse Ox O2 Del Method 98.8 F 103 H 22 H 164/96 H 96 Room Air 09/01/24 19:17 09/01/24 19:17 09/01/24 19:17 09/01/24 19:17 09/01/24 19:17 09/01/24 19:17 Narrative Exam Physical Exam: General: Somnolent. Eyes closed and mostly sleeping. No acute distress. Skin: Warm, dry, intact, no obvious rash. Head: Normocephalic, atraumatic. Eye: Normal conjunctiva, PERRL. Throat: Oral mucosa moist. No obvious lesions in oropharynx. Cardiovascular: Tachycardic rate and normal rhythm, no murmur, +S1/S2. Respiratory: Lungs are clear to auscultation, respirations unlabored, no crackles, no wheezing. Gastrointestinal: Soft, nontender, non-distended. No guarding or rebound tenderness. Extremities: Transmetatarsal amputation of the right foot. Right foot swelling and erythema. Dry gangrene of right heel. Neuro: Unable to assess, most of interview being conducted via daughter. Psychiatric: Unable to assess, most of interview being conducted via daughter. Results: Labs 09/01/24 16:00 09/01/24 16:00 Labs: Short CBC 09/01/24 Range/Units 16:00 WBC 23.2 H (3.8-10.6) Thou/mm3 Hgb 11.8 L (13.5-16.0) g/dL Hct 36.2 L (41.0-53.0) % Plt Count 468 H D (140-440) Thou/mm3 BMP 09/01/24 16:00 Sodium 135 L Potassium 4.6 Chloride 101 Carbon Dioxide 21.0 BUN 41 H Creatinine 1.8 H Glucose 309 H Calcium 9.0 Liver Function 09/01/24 Range/Units 16:00 Total Bilirubin 0.3 (0.3-1.2) mg/dL AST 32 (0-34) U/L ALT 48 (10-49) U/L Alkaline Phosphatase 186 H (46-116) U/L Albumin 3.5 (3.4-4.8) gm/dL Urine 09/01/24 Range/Units 19:22 Urine Color Yellow (Lt Yel-Yel) Urine Clarity Turbid A (Clear/Hazy) Urine pH 6.0 (5.0-7.0) Ur Specific Patten 1.016 (1.001-1.035) Urine Protein 1+ A (Neg - Trace) Urine Glucose (UA) 3+ A (Negative) Quality Measures Quality Measures sepsis Current suspected stage: sepsis Possible source: pulmonary, bone/joint and skin/soft tissue Blood cultures ordered: yes Antibiotic ordered: Yes Advance care planning discussed with:: child (daughter) Medications Home Medications and Allergies Home Medications ?Medication ?Instructions ?Recorded ?Confirmed ?Type aspirin 81 mg tablet,delayed 81 mg PO QDAY 11/17/17 04/07/24 History release (Bert Low Dose Aspirin) clopidogrel 75 mg tablet (Plavix) 75 mg PO QDAY 11/17/17 03/18/20 History docusate sodium 100 mg capsule 100 mg PO QDAY 11/17/17 04/07/24 History (Colace) metoprolol tartrate 25 mg tablet 50 mg PO BID 11/17/17 04/07/24 History semaglutide 1 mg/dose (4 mg/3 mL) 1 mg subcut QWEEK 04/07/24 04/07/24 History subcutaneous pen injector (Ozempic) Allergies Allergy/AdvReac Type Severity Reaction Status Date / Time No Known Allergies Allergy Verified 08/22/24 12:58 Visit Medications Acetaminophen (Acetaminophen 325 Mg Tablet) 650 mg PO Q6H PRN PRN Reason: PAIN SCALE 1-3 (mild Stop: 10/01/24 22:19 Amlodipine Besylate (Amlodipine Besylate 5 Mg Tablet) 5 mg PO QDAY ALEXIS Stop: 10/02/24 08:59 Aspirin (Aspirin Ec 81 Mg Tabec) 81 mg PO QDAY ALEXIS Stop: 10/02/24 08:59 Dextrose (Dextrose 50%-Water Inj 50 Ml Syringe) 25 ml IV Q15MIN PRN PRN Reason: BG 50-70 responsive npo pt Stop: 10/01/24 22:22 Dextrose (Dextrose 50%-Water Inj 50 Ml Syringe) 50 ml IV Q15MIN PRN PRN Reason: BG <50 OR BG <70 & pt unresponsive Stop: 10/01/24 22:22 Finasteride (Finasteride 5 Mg Tablet) 5 mg PO QDAY LAEXIS Stop: 10/02/24 08:59 Glucagon (Glucagon Inj 1 Mg Vial) 1 mg IM Q15MIN PRN PRN Reason: BG <70, and no IV access Heparin Sodium (Porcine) (Heparin Sod Inj 5000 Unit/Ml Vial) 5,000 unit SC Q12HR ALEXIS Stop: 09/16/24 08:59 Ceftriaxone Sodium 2 gm/ (Sodium Chloride) 50 mls @ 100 mls/hr IV QDAY ALEXIS Stop: 09/08/24 22:21 Insulin Human Lispro (Insulin Lispro (Admelog) 1 Unit/0.01 Ml Unit) 0 unit SC ACHS REPLACED BY [facility]; Protocol Stop: 10/02/24 07:29 Ondansetron HCl (Ondansetron Inj 2 Mg/Ml Inj 2 Ml) 4 mg IVP Q6H PRN; Protocol PRN Reason: NAUSEA OR VOMITING Stop: 10/01/24 22:19 Pharmacy Consult (Vancomycin Pharmacy To Dose 1 Each Each) 1 each IV QDAY ALEXIS Stop: 10/02/24 08:59 Sennosides (Senna Tablet) 1 tab PO QDAY PRN; Protocol PRN Reason: constipation Stop: 10/01/24 22:19 Sertraline HCl (Sertraline Hcl 25 Mg Tablet) 50 mg PO HS ALEXIS Stop: 10/02/24 20:59 Discontinued Medications Acetaminophen (Acetaminophen 500 Mg Tablet) 1,000 mg PO X1 ONE Stop: 09/01/24 16:21 Last Admin: 09/01/24 17:56 Dose: 1,000 mg Piperacillin/Tazobactam/Dextrose (Zosyn) 3.375 gm in 50 mls @ 100 mls/hr IV X1 ONE Stop: 09/01/24 16:49 Last Infusion: 09/01/24 18:31 Dose: Infused Sodium Chloride (Ns) 2,052 mls @ 2,052 mls/hr 30 ml/kg infuse over 60 min (2052 ml) IV .Q1H ONE Stop: 09/01/24 17:20 Last Admin: 09/01/24 17:57 Dose: 2,052 mls/hr Vancomycin HCl (Vancomycin/Water 1gm Ivpb) 200 mls @ 120 mls/hr IV X1 ONE Stop: 09/01/24 18:09 Last Infusion: 09/01/24 20:13 Dose: Infused Assessment & Plan Assessment Serjio Marc is a 74-year-old male with a PMH of T2DM, HLD, HTN, CKD, CAD, TIA (2021), PAD, and depression who was brought in by daughter due to increasing weakness and unresponsiveness. Patient was admitted for the work-up and management of sepsis r/o, osteomyelitis r/o, acute UTI and possible JULIO. #Osteomyelitis (right foot) #Sepsis #s/p transmetatarsal amputation of right foot (performed 2 months ago), itself preceded by a less invasive MTP amputation #Leukocytosis #Generalized weakess #Peripheral arterial disease #Eschar of the right heel #Diabetic neuropathy Initial presentation: warm, erythematous, swollen right foot, dry gangrenous patch of the right heel, and associated leg pain s/p transmetatarsal amputation of right foot Patient meets SIRS criteria by the following: Temperature above 100.4 (103.8), HR>90 (112), WBC above 12 (23.2) + source of infection (osteomyelitis of right foot) and signs of end organ damage (elevated creatinine) Evidence for source of infection is finding of large soft tissue defect and cortical bone destruction involving the distal metatarsals on foot X-ray, suggesting osteomyelitis involving the amputated metatarsals Source of sepsis-inducing infection could also be patient's acute UTI qSOFA ratin ESR 124, CRP 24.9, procalcitonin 0.89 (all elevated) The above occurs in the setting of poorly-controlled T2DM, diabetic neuropathy, and PAD resulting in poor healing of the initial right MTP amputation and requiring TMT amputation of the right foot Diagnostic Inquiry -CBC, CMP -BCx -Wound culture and Gram-stain Treatment Plan -IV Rocephin 2 g qD -IV vancomycin qD -General surgery consulted, awaiting recommendations #UTI #Sepsis r/o #Leukocytosis #Generalized weakness UA showed marked pyuria (WBC 134) with 4+ bacteria, positive urine nitrite and LE, 3+ glucose, and 1+ protein. Septic criteria mentioned above Diagnostic Inquiry -CBC, CMP -UCx Treatment Plan -IV Rocephin 2 g qD -IV vancomycin qD #JULIO on CKD vs. progression of CKD Creatinine 1.8 (baseline: 1.4-1.5), eGFR 39 BUN/Creatinine ratio: 23 (suggestive of prerenal azotemia) Diagnostic Inquiry -No current recommendation Treatment Plan -Gentle fluid infusion 1 L LR @ 80 mls/hr -Monitor renal panel #Normocytic Anemia Hgb 11.8 (MCV 88, RDW 48.3) Diagnostic Inquiry -Iron panel -Ferritin -Reticulocyte count -Follow up with GI outpatient for possible endoscopic studies Treatment Plan -Monitor Hgb, transfuse if <7 #Chronic medical problems #Hypertension #T2DM #Depression #BPH Initial BP of 166/90, initial FSBG 389 Diagnostic Inquiry -No current recommendation Treatment Plan -Insulin sliding scale -Restarted home medications: sertraline, finasteride, and amlodipine Hospital Management: Disposition: pending general surgery consult recommendations Diet: carbohydrate consistent low GI Prophylaxis: none Bowel Prophylaxis: senna DVT Prophylaxis: heparin CODE STATUS: Full Code I have examined the patient and conferred with my attending, Dr. Delaney, and my senior resident, Dr. Davis, regarding them. Kyaw Bell DO PGY-1 Internal Medicine Attending Provider Attestation/Addendum I attest that I was physically present for the evaluation, physical examination, lab and imaging review of the patient with the residents. I discussed the case with the residents and agree with the findings and plans of care as documented above. After examination of the patient and review of the clinical data I feel that this patient needs admission to the hospital for further treatment/evaluation. Patient is a 74 years old male with past medical history of diabetes mellitus, hypertension, hyperlipidemia, CKD, CAD, TIA, peripheral artery disease, BPH and depression who presented to the ED with complaint of increased weakness and episode of unresponsiveness. As per the daughter at bedside, patient has been having weakness for about a week, has decreased oral intake and has become more sleepy. Patient had amputation of his foot about 2 months back, following which wound had been improving nicely but recently she also noticed worsening foot wound, with increased redness. Today, patient was hard to respond and did not react to verbal stimuli for which she is decided to visit the ED. In the ED, patient was found to have temperature of 103.8, blood pressure 160/80, heart rate 112. Rest of the vitals were within normal limits, saturating well on room air. Lab results show WBC of 23.2, hemoglobin 11.8, ESR 124, CRP 24.9, BUN/creatinine 41/1.8, blood glucose 309, ALP 186, procalcitonin 0.89. UA showed WBC of 134, 4+ bacteria, positive leukocyte esterase and nitrite. Foot x-ray was done, which showed osteomyelitis of amputated metatarsals. We will admit the patient for management of sepsis secondary to osteomyelitis of right foot/UTI. We will start him on broad-spectrum IV antibiotics with vancomycin and Rocephin. Cultures are ordered, patient received fluid bolus in the ED. We will continue with gentle IV hydration. General surgery has been consulted, awaiting recommendations. Kidney function, concerning for JULIO on CKD versus progression of CKD, baseline creatinine appears to be around 1.4-1.5. We will avoid nephrotoxin 9 monitor his kidney function closely. Ordered iron studies for normocytic anemia. Resumed home medication for depression and hypertension. Started insulin regimen for diabetes. Joel Delaney MD
[2024-09-01] MEDS: cefTRIAXone 2 GM in SODIUM CHLORIDE 0.9% (Popper) 50 ML IV (23:28)
[2024-09-02] VITALS (16 sets, daily range): BP systolic 102–166; BP diastolic 50–113; PULSE 72–178; RESP 18–32; TEMP 36.1–37.7; O2SAT 92–99; BMI 26.6; BMI 11.0
--- NOTE | 2024-09-02 | XR_ITS ---
Examination: MRI right lower leg, without contrast Date and time of exam: September 02, 2024, 1726 hours INDICATIONS: Leg nonhealing wound, at the level of the heel this week Technique: Multiple axial sagittal and coronal images of the right lower leg have been obtained with the Siemens high-resolution 1.5 [place] MRI scanner. Images obtained include T2-weighted fat-suppressed sagittal sections, TR 3500, TE 46, T2 weighted coronal fat suppressed images, TR 3050, TE 84, T2-weighted transverse fat suppressed images, TR 3260, TE 63, proton density transverse images, TR 4720 TE 46, and T1 weighted coronal images, TR 560, TE 13. Findings: Attempted today intact Patient movement with poor detail These images do not demonstrate the lower calcaneus which is visualized on the foot MRI No soft tissue abscess IMPRESSION: Negative for osteomyelitis Negative for soft tissue abscess
[2024-09-02] MEDS: RINGERS LACTATED 1000 ML 1,000 ML 80 ML IV (03:53)
--- NOTE | 2024-09-02 04:37 | PC.NURSE ---
Patient unable to recall home medications. Med/Rec not done at this time. Will follow up with AM nurse to call family regarding med/rec.
[2024-09-02 06:04] LABS: Basophils # (Auto) 0.1 Thou/mm3 (0.0-0.2); Basophils % (Auto) 0 % (0-2.5); Eosinophils # (Auto) 0.0 Thou/mm3 (0.0-0.5); Eosinophils % (Auto) 0 % (0-10); Hematocrit 28.6 % (41.0-53.0); Hemoglobin 9.5 g/dL (13.5-16.0); Immature Granulocytes Auto 0.33 Thou/mm3 (0.00-0.00); Immature Reticulocyte Fraction 15.3 % (2.3-13.4); Lymphocytes # (Auto) 1.8 Thou/mm3 (1.0-4.8); Lymphocytes % (Auto) 7 % (10-50); Mean Corpuscular HGB Conc 33.2 g/dl (31.0-37.0); Mean Corpuscular Hemoglobin 29.2 pg (25.0-35.0); Mean Corpuscular Volume 88 fL (80-100); Monocytes # (Auto) 2.0 Thou/mm3 (0.0-0.8); Monocytes % (Auto) 8 % (0-12); Neutrophils # (Auto) 21.9 Thou/mm3 (1.8-7.7); Neutrophils % (Auto) 84 % (37-80); Nucleated Red Blood Cell # 0.00 Thou/mm3 (0.00-0.00); Nucleated Red Blood Cell % 0 /100 WBC (0); Platelet Count 424 Thou/mm3 (140-440); RDW Standard Deviation 48.1 fL (35.1-43.9); Red Blood Count 3.25 Miln/mm3 (4.50-5.90); Reticulocyte % (Auto) 1.0 % (0.5-1.5); Reticulocyte Absolute Auto 33.2 Biln/L (25.0-75.0); Reticulocyte Hgb Content 29.0 pg (28.0-35.0); White Blood Count 26.1 Thou/mm3 (3.8-10.6)
[2024-09-02 06:25] LABS: Alanine Aminotransferase 39 U/L (10-49); Albumin, Serum 3.2 gm/dL (3.4-4.8); Albumin/Globulin Ratio 1.0 (1.2-2.2); Alkaline Phosphatase 174 U/L (46-116); Anion Gap 12 (7-16); Aspartate Amino Transferase 18 U/L (0-34); BUN/Creatinine Ratio 25 Ratio (12-20); Bilirubin,Total 0.2 mg/dL (0.3-1.2); Blood Urea Nitrogen 35 mg/dL (9-23); Calcium 9.0 mg/dL (8.3-10.6); Calcium (Corrected) 9.6 mg/dL (8.5-10.1); Carbon Dioxide 21.1 mMol/L (20.0-31.0); Chloride 106 mMol/L (98-107); Creatinine (Component) 1.4 mg/dL (0.6-1.3); Estimated Creatinine Clearance 44.8 mL/min (>60); Globulin 3.2 gm/dL (2.3-3.5); Glucose 324 mg/dL (74-106); Osmolality,Calculated 298 (275-295); Potassium 4.0 mMol/L (3.4-5.1); Sodium 139 mMol/L (136-145); Total Protein 6.4 gm/dL (5.7-8.2); eGFR 53 See Note
[2024-09-02 06:28] LABS: Ferritin 726 ng/mL (10.5-307.3); Iron 12 mcg/dL (65-175); Percent Iron Saturation 8 % (20-55); Total Iron Binding Capacity 134 mcg/dL (250-425); Unsaturated Iron Binding 122 (225-295)
--- NOTE | 2024-09-02 08:13 | PC.NURSE ---
Called Dr. Toledo regarding patient and family refusal for Dr. Lyons to consult, stats will figure something out.
[2024-09-02] MEDS: INSULIN LISPRO (AdmeLOG) 1 UNIT/0.01 ML UNIT SC ×3 (08:57→20:58)
[2024-09-02] MEDS: FINASTERIDE 5 MG TABLET PO (08:58)
[2024-09-02] MEDS: INSULIN HUM REGULAR 1 UNIT/0.01 ML (PER UNIT) 5 UNIT SC (08:58)
[2024-09-02] MEDS: ASPIRIN EC 81 MG TABEC PO (08:58)
[2024-09-02] MEDS: HEPARIN SOD INJ 5000 UNIT/ML VIAL SC ×2 (09:37→20:43)
--- NOTE | 2024-09-02 09:42 | PC.SS ---
Patient is a 74 year old male who presents to the hospital for UTI osteomyelitis. OFFICE CORRESPONDENT made contact with patient at bedside and explained role and reason for visit. Pt. was alert and oriented. Pt. confirmed demographic information and he lives at home with daughter. Pt. reported that next of kin is daughter Renea Franklin ph: [phone], secondary contact is son Geovani Walkers ph: [phone]. Pt. reported he received SSI, utilizes walker and wheelchair at home. Pt. stated that PCP is Dr. Herrera, his last appointment was on 08/29/24. Pharmacy of choice is [facility]. Pt. stated that once medically cleared, daughter can provide transportation home. Pt. stated that he would like to revisit d/c once he has talked to the doctor. D/C: Family unsure. PCP: Dr. Herrera Next of Kin: Renea Noemi ph: [phone]
--- NOTE | 2024-09-02 10:02 | PD.RESPRO ---
Documentation for date of: 09/02/24 Patient is an overnight admission who was admitted for Osteomyelitis as noted on Foot x-ray on right lower extremity s/p transmetatarsal at [facility] with a previous greater toe amputation (05/05/2024). Foot MRI noted cortical irregularity invovling all amputated stumps of the metatarsals, suspicious for early osteomyelitis. Achillies tendon thickened. Edema at plantar foot. Patient examined at bedside. Patient complaining of chills and subjective fevers at home. SIRs criteria, secondary to tachypneaia, pyrexia, tachycardia with Leukocytosis, and source of infection, secondary to osteomyelitis. Sepsis secondary to osteomylitis, qSofa 1 w/ end organ damage of JULIO on CKD and lactic acid. Diabetic open non-healing wound at site of previous amputation noted to have yellow and white fluid. NO foul smelling odor. Positive UA. Patinet started on IV antibiotics, pending wound and blood cultures and urine cultures. A1c 6.9% sliding scale on board. Glargine 10 units HS. Sliding scale. Family refusing to see Dr. Lyons, consulted Dr. Miller, both general surgeons made aware. RR response secondary to chills and increased RR rate, 30. Sepsis protocal orderd. LR bolus X 1. Lactic acid of 5.3. LR bolus X 2 given. Repeat Lactic acid within normal limits. EKG poor read, less likely Afib. Increased Ceftriaxone to Zosyn and continue Vancomycin. Holding Amlodipine given concern of sepsis. Fluid Response, may give fluids. chuyita Muller, [id number] Subjective Subjective Interval history: Overnight events: Patient admitted overnight. Patient was seen and examined at bedside. AM vitals and labs reviewed. Patient was resting comfortably in bed on 2L NC without any acute distress. Family was by patient's side and discussed how they would not like surgical care from Dr. Garcia. Primary team alerted Dr. Garcia, changed surgery consultation to Dr. Miller. The patient's family have been concerned for the patient due to the patient being very depressed at home since he had his amputation surgery 2 months ago. Family stated that they would prefer debridement if possible, but would accept further amputation if medically necessary. Throughout this discussion, the patient was observed staring ahead and minimally interactive. Patient expressed no complaints at this time other than being cold. Review of systems otherwise negative except for what is mentioned above. Exam Vital Signs Temp Pulse Resp BP Pulse Ox O2 Del Method 97.4 F 83 18 140/79 H 98 Room Air 09/02/24 08:00 09/02/24 08:58 09/02/24 08:00 09/02/24 08:58 09/02/24 08:00 09/02/24 08:00 Narrative Exam Physical Exam: General: Alert, no acute distress. Skin: Warm, dry, intact, no obvious rash. Head: Normocephalic, atraumatic. Eye: Normal conjunctiva, PERRL. Cardiovascular: Regular rate and rhythm, no murmur, +S1/S2. Respiratory: Lungs are clear to auscultation, respirations unlabored on 2L NC, no crackles, no wheezing. Gastrointestinal: Soft, nontender, sightly distended. No guarding or rebound tenderness. Extremities: No edema, no cyanosis, no clubbing. 2+ radial pulse bilaterally, 1+ pedal pulse bilaterally. Right foot amputated at level of metatarsals, pus noted on poor healing surgical site. Black, dry eschar noted on right heel. Neuro: No focal deficits observed. Minimally conversant, moving all extremities. No overt cerebellar signs/incoordination. Psychiatric: Cooperative, flat affect. Objective Labs 09/08/24 04:57 09/08/24 04:57 Labs: Laboratory Results - last 24 hr 09/01/24 09/01/24 09/01/24 16:00 17:53 18:16 WBC 23.2 H RBC 4.11 L Hgb 11.8 L Hct 36.2 L MCV 88 MCH 28.7 MCHC 32.6 RDW Std Deviation 48.3 H Plt Count 468 H D Neut % (Auto) 85 H Lymph % (Auto) 6 L [place] % (Auto) 8 Eos % (Auto) 0 Baso % (Auto) 0 Neut # (Auto) 19.7 H Lymph # (Auto) 1.3 [place] # (Auto) 1.8 H Eos # (Auto) 0.0 Baso # (Auto) 0.0 Immature Gran # (Auto) 0.38 H Absolute Nucleated RBC 0.00 Immature Gran % 2 H Nucleated RBC % 0 ESR 124 H Retic Count (auto) Absolute Retic Immature Retic Fraction Retic Hgb Content CHr PT 12.8 H INR 1.2 APTT 28.8 Sodium 135 L Potassium 4.6 Chloride 101 Carbon Dioxide 21.0 Anion Gap 13 BUN 41 H Creatinine 1.8 H Estim Creat Clear Calc 34.8 L eGFR 39 L BUN/Creatinine Ratio 23 H Glucose 309 H Calculated Osmolality 292 Lactic Acid 3.1 H Calcium 9.0 Corrected Calcium 9.4 Iron TIBC Iron Saturation Unsat Iron Binding Ferritin Total Bilirubin 0.3 AST 32 ALT 48 Alkaline Phosphatase 186 H C-Reactive Prot, Quant 24.9 H B-Natriuretic Peptide 87 Total Protein 7.0 Albumin 3.5 Globulin 3.5 Albumin/Globulin Ratio 1.0 L Beta-Hydroxybutyrate/Acetoacetate 0.4 Procalcitonin 0.89 H Ur Collection Type Urine Color Urine Clarity Urine pH Ur Specific [place] Urine Protein Urine Glucose (UA) Urine Ketones Urine Blood Urine Nitrite Urine Bilirubin Urine Urobilinogen (Auto) Ur Leukocyte Esterase Urine RBC Urine WBC Ur Squamous Epith Cells Amorphous Crystals Urine Bacteria SARS-CoV-2 Ag (Rapid) Negative 09/01/24 09/01/24 09/02/24 19:22 19:36 05:25 WBC 26.1 H RBC 3.25 L Hgb 9.5 L D Hct 28.6 L MCV 88 MCH 29.2 MCHC 33.2 RDW Std Deviation 48.1 H Plt Count 424 D Neut % (Auto) 84 H Lymph % (Auto) 7 L [place] % (Auto) 8 Eos % (Auto) 0 Baso % (Auto) 0 Neut # (Auto) 21.9 H Lymph # (Auto) 1.8 [place] # (Auto) 2.0 H Eos # (Auto) 0.0 Baso # (Auto) 0.1 Immature Gran # (Auto) 0.33 H Absolute Nucleated RBC 0.00 Immature Gran % 1 H Nucleated RBC % 0 ESR Retic Count (auto) 1.0 Absolute Retic 33.2 Immature Retic Fraction 15.3 H Retic Hgb Content CHr 29.0 PT INR APTT Sodium 139 Potassium 4.0 D Chloride 106 Carbon Dioxide 21.1 Anion Gap 12 BUN 35 H Creatinine 1.4 H Estim Creat Clear Calc 44.8 L eGFR 53 L BUN/Creatinine Ratio 25 H Glucose 324 H Calculated Osmolality 298 H Lactic Acid 1.4 Calcium 9.0 Corrected Calcium 9.6 Iron 12 L TIBC 134 L Iron Saturation 8 L Unsat Iron Binding 122 L Ferritin 726 H Total Bilirubin 0.2 L AST 18 ALT 39 Alkaline Phosphatase 174 H C-Reactive Prot, Quant B-Natriuretic Peptide Total Protein 6.4 Albumin 3.2 L Globulin 3.2 Albumin/Globulin Ratio 1.0 L Beta-Hydroxybutyrate/Acetoacetate Procalcitonin Ur Collection Type Catheter Urine Color Yellow Urine Clarity Turbid A Urine pH 6.0 Ur Specific [place] 1.016 Urine Protein 1+ A Urine Glucose (UA) 3+ A Urine Ketones Negative Urine Blood Trace Urine Nitrite Positive Urine Bilirubin Negative Urine Urobilinogen (Auto) Negative Ur Leukocyte Esterase Positive Urine RBC 6 H Urine WBC 134 H Ur Squamous Epith Cells 0 Amorphous Crystals Present A Urine Bacteria 4+ A SARS-CoV-2 Ag (Rapid) Quality Measures Quality Measures sepsis Current suspected stage: sepsis Possible source: bone/joint, genitourinary and skin/soft tissue Blood cultures ordered: yes Antibiotic ordered: Yes Advance care planning discussed with:: patient and legal surragate Assessment & Plan Assessment Current Active Medications: Generic Name Dose Route Start Last Admin Trade Name Freq PRN Reason Stop Dose Admin Acetaminophen 650 mg 09/01/24 22:20 Acetaminophen 325 Mg Tablet PO 10/01/24 22:19 Q6H PRN PAIN SCALE 1-3 (mild Amlodipine Besylate 5 mg 09/02/24 09:00 09/02/24 08:58 Amlodipine Besylate 5 Mg Tablet PO 10/02/24 08:59 5 mg QDAY ALEXIS Administration Aspirin 81 mg 09/02/24 09:00 09/02/24 08:58 Aspirin Ec 81 Mg Tabec PO 10/02/24 08:59 81 mg QDAY ALEXIS Administration Dextrose 25 ml 09/01/24 22:23 Dextrose 50%-Water Inj 50 Ml Syringe IV 10/01/24 22:22 Q15MIN PRN BG 50-70 responsive npo pt Dextrose 50 ml 09/01/24 22:23 Dextrose 50%-Water Inj 50 Ml Syringe IV 10/01/24 22:22 Q15MIN PRN BG <50 OR BG <70 & pt unresponsive Finasteride 5 mg 09/02/24 09:00 09/02/24 08:58 Finasteride 5 Mg Tablet PO 10/02/24 08:59 5 mg QDAY ALEXIS Administration Glucagon 1 mg 09/01/24 22:23 Glucagon Inj 1 Mg Vial IM Q15MIN PRN BG <70, and no IV access Heparin Sodium (Porcine) 5,000 unit 09/02/24 09:00 09/02/24 09:37 Heparin Sod Inj 5000 Unit/Ml Vial SC 09/16/24 08:59 5,000 unit Q12HR ALEXIS Administration Lactated Ringer's 1,000 mls @ 80 mls/hr 09/02/24 03:23 09/02/24 03:53 Lactated Ringers IV 09/02/24 15:52 80 mls/hr .[id number] ALEXIS Administration Vancomycin HCl 200 mls @ 120 mls/hr 09/02/24 22:00 Vancomycin/Water 1gm Ivpb IV 09/09/24 21:59 QPM@2200 ALEXIS Protocol Ceftriaxone Sodium/Dextrose 2 gm in 50 mls @ 100 mls/hr 09/02/24 21:00 Rocephin/D5w 2gm IV 09/08/24 22:21 HS ALEXIS Insulin Glargine 10 unit 09/02/24 21:00 Insulin Glargine (Lantus) 5 Unit/0.05 Ml (Per 5 Units) SC 10/02/24 20:59 HS ALEXIS Insulin Human Lispro 0 unit 09/02/24 07:30 09/02/24 08:57 Insulin Lispro (Admelog) 1 Unit/0.01 Ml Unit SC 10/02/24 07:29 3 unit ACHS ALEXIS Administration Protocol Ondansetron HCl 4 mg 09/01/24 22:20 Ondansetron Inj 2 Mg/Ml Inj 2 Ml IVP 10/01/24 22:19 Q6H PRN NAUSEA OR VOMITING Protocol Pharmacy Consult 1 each 09/02/24 09:00 Vancomycin Pharmacy To Dose 1 Each Each IV 10/02/24 08:59 QDAY PRN PROTOCOL Sennosides 1 tab 09/01/24 22:20 Senna Tablet PO 10/01/24 22:19 QDAY PRN constipation Protocol Sertraline HCl 50 mg 09/02/24 21:00 Sertraline Hcl 25 Mg Tablet PO 10/02/24 20:59 HS ALEXIS Plan Mr. Marc is a 74 year old gentleman with a past history of PAD, HTN, T2DM, HLD, and s/p amputation of right metatarsals who presented to the ED with concerns of generalized weakness and AMS. The patient was admitted for sepsis management due to osteomyelitis of right foot and urinary tract infection. 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 Plantar Edema #Eschar of right heel #Leukocytosis Patient had difficulty healing his right foot after toe amputation to metatarsals about 2 months ago. The poor healing was likely due to the patient's history of peripheral artery disease. The patient presented with fever of 103.8, heart rate 112, and WBC 23.2 in the ED with source of infection (right foot) and evidence of endorgan damage in elevated creatinine. Foot x-ray done in ED showed cortical bone destruction of distal metatarsals in right foot, further suggesting osteomyelitis. Active pus in right foot, black escar of right heel, and erythematous right foot support signs of active infection in patient. ? Continue vancomycin [start date 09/01/24], swapped ceftriaxone 2 grams to piperacillin/tazobactam [start date 09/02/2024] ? Blood cultures x 2 drawn 09/01 pending results ? Right foot wound culture 09/01 pending results ? Preliminary results 09/02: Gram-negative rods [empiric antibiotic coverage: Piperacillin/tazobactam] qSofa 1 w/ end organ damage JULIO on CKD and lactic acid Plan: -Zosyn (09/02/2024--) and Vancomycin (09/02/2027-) ? LR X 3 bolus 09/02/2024 ? Ordered MRI lower right leg without contrast to assess for soft tissue involvement in addition to osteomyelitis found on right foot x-ray right nice ? Lactic acid 5.3 on 09/02, ordered lactic acid every 4 hours to trend ? General Surgery Consulted, Dr. Miller, appreciate recommendations ? Infectious disease Consulted, Dr. Blankenship, appreciate recommendations #Urinary tract infection Patient had urinalysis performed in ED, which showed WBC 134 with 4+ bacteria, positive urine nitrate, 3+ glucose, and 1+ protein. Due to patient's altered mental status, will monitor and manage with antibiotic treatment. ? Initially managed with ceftriaxone started on 09/01, swap to piperacillin/tazobactam on 09/02 ? Will monitor progression with CBC and daily examinations #JULIO on CKD, likely secondary to sepsis vs dehydration #Metabolic Acidosis, anion gap, secondary to Lactic Acidosis Patient presented with BUN 35, creatinine 1.4, GFR 53. Possible explanations as to why include decreased blood flow due to sepsis from patient's osteomyelitis and/or urinary tract infection or decreased fluid intake due to altered mental status. Patient has slightly decreased bicarb at 19.6 with an anion gap, likely due to elevated lactic acid at 5.3. ? Will monitor with daily renal panel ? Will continue IV hydration with lactated Ringer's ? Will renally dose medication and avoid nephrotoxic medication ? Will hold patient's home lisinopril until improvement of JULIO #Anemia of chronic disease Patient had decreased H&H of 10.3/31.6 with MCV of 90. Iron panel abnormal with iron at 12, UIBC 134, iron saturation 8%, ferritin 726. Plan -No iron tablets, given concern for sepsis ? Will monitor with daily CBC ? Will transfuse if hemoglobin drops below 7 per protocol #Hyperglycemia #Type 2 diabetes mellitus on insulin #Diabetic neuropathy Patient has reported history of type 2 diabetes mellitus and diabetic neuropathy that likely led to transmetatarsal amputation. Home glargine 20 units, Glipizide, and Januvia. Plan ? Glargine 10 units HS and Sliding scale ? Will hold patient's home glipizide & hold patient's home Januvia due to current UTI -Continue to monitor Fasting blood glucose, may require Glargine 20 units. #Hyperlipidemia #Peripheral artery disease #History of thrombus in RLE Patient was reported to have a history of hyperlipidemia on home atorvastatin 20 mg. Patient's family reports that the patient received surgical care at [facility] in [place], [place] as they have specialists to manage peripheral artery disease in patients who require amputations in the lower extremities. 1+ pedal pulse noted in bilateral lower extremities. Likely a contributor to poor wound healing post transmetatarsal amputation, which likely contributed to infection that led to osteomyelitis. ? Restarted home atorvastatin 20 mg ? Ordered ultrasound of right lower extremity to assess for possible thrombus contributing to decreased wound healing #Thromcytosis Patient has elevated platelet count at 509 on 09/02 likely reactive secondary to acute infection. ? Will monitor with daily CBC #Constipation Patient has bowel movements every few days per family members. Patient responds well to home bisacodyl 5mg PRN. ? Will restart home bisacodyl 5mg PRN DVT Prophylaxis: Heparin GI Prophylaxis: N/A Diet: NPO [place]: Yes Lines: Peripheral IV Antibiotics: Vancomycin & ceftriaxone Code Status: FULL Reason for Hospitalization: Sepsis due to osteomyelitis and UTI Other Barriers to Discharge: Pending recommendations from General Surgery Patient plan of care was discussed with the senior resident Dr. Toledo (PGY-2) and attending physician Dr. Brittny Lima, PGY1 - The patient's plan was discussed with attending Dr. Brittny Toledo MD PGY2 Internal Medicine Attending Provider Attestation/Addendum I have examined the patient, reviewed labs and imaging findings, discussed the case with the resident(s), and reviewed entered orders. I agree with the plan of care as outlined in this note, with these additional summaries/recommendations: Patient seen at bedside. Patient had rapid response this morning. Sepsis alert reinitiated. Antibiotics broadened. Follow-up culture results. Lactic acid returned at 5.3 and fluid boluses given. Follow-up repeat lactic acid. JULIO present. Source most likely secondary to right foot purulent cellulitis and osteomyelitis plus urinary tract infection. Purulence noted on wound. Continue MRSA coverage. Wound care following. Follow-up culture results. Tylenol as needed for fever. Suspect patient is going to need surgical debridement/amputation. General surgery consulted. ESR 124 and CRP 24.9. Continue basal and bolus insulin for diabetes mellitus type 2. Continue home antihypertensives. Patient and family updated on the plan and agreement. Please see residents note for additional details and management. Dr. Brittny MD
--- NOTE | 2024-09-02 11:22 | PD.IDPROG ---
Subjective Subjective Interval history: unable to see today due to logistics. dr martinez making rounds and so many cases just admitted on empiric vanco/rocephin Exam Vital Signs Temp Pulse Resp BP Pulse Ox O2 Del Method 97.4 F 78 18 140/79 H 98 Room Air 09/02/24 08:00 09/02/24 10:01 09/02/24 08:00 09/02/24 08:58 09/02/24 08:00 09/02/24 08:00 Narrative Exam not seen. it is getting late and this is one of many new requests from dr swan with no data Objective - Internal Medicine Labs 09/02/24 05:25 09/02/24 05:25 Labs: Laboratory Results - last 24 hr 09/01/24 09/01/24 09/01/24 16:00 17:53 18:16 WBC 23.2 H RBC 4.11 L Hgb 11.8 L Hct 36.2 L MCV 88 MCH 28.7 MCHC 32.6 RDW Std Deviation 48.3 H Plt Count 468 H D Neut % (Auto) 85 H Lymph % (Auto) 6 L [place] % (Auto) 8 Eos % (Auto) 0 Baso % (Auto) 0 Neut # (Auto) 19.7 H Lymph # (Auto) 1.3 [place] # (Auto) 1.8 H Eos # (Auto) 0.0 Baso # (Auto) 0.0 Immature Gran # (Auto) 0.38 H Absolute Nucleated RBC 0.00 Immature Gran % 2 H Nucleated RBC % 0 ESR 124 H Retic Count (auto) Absolute Retic Immature Retic Fraction Retic Hgb Content CHr PT 12.8 H INR 1.2 APTT 28.8 Sodium 135 L Potassium 4.6 Chloride 101 Carbon Dioxide 21.0 Anion Gap 13 BUN 41 H Creatinine 1.8 H Estim Creat Clear Calc 34.8 L eGFR 39 L BUN/Creatinine Ratio 23 H Glucose 309 H Calculated Osmolality 292 Lactic Acid 3.1 H Calcium 9.0 Corrected Calcium 9.4 Iron TIBC Iron Saturation Unsat Iron Binding Ferritin Total Bilirubin 0.3 AST 32 ALT 48 Alkaline Phosphatase 186 H C-Reactive Prot, Quant 24.9 H B-Natriuretic Peptide 87 Total Protein 7.0 Albumin 3.5 Globulin 3.5 Albumin/Globulin Ratio 1.0 L Beta-Hydroxybutyrate/Acetoacetate 0.4 Procalcitonin 0.89 H Ur Collection Type Urine Color Urine Clarity Urine pH Ur Specific [place] Urine Protein Urine Glucose (UA) Urine Ketones Urine Blood Urine Nitrite Urine Bilirubin Urine Urobilinogen (Auto) Ur Leukocyte Esterase Urine RBC Urine WBC Ur Squamous Epith Cells Amorphous Crystals Urine Bacteria SARS-CoV-2 Ag (Rapid) Negative 09/01/24 09/01/24 09/02/24 19:22 19:36 05:25 WBC 26.1 H RBC 3.25 L Hgb 9.5 L D Hct 28.6 L MCV 88 MCH 29.2 MCHC 33.2 RDW Std Deviation 48.1 H Plt Count 424 D Neut % (Auto) 84 H Lymph % (Auto) 7 L [place] % (Auto) 8 Eos % (Auto) 0 Baso % (Auto) 0 Neut # (Auto) 21.9 H Lymph # (Auto) 1.8 [place] # (Auto) 2.0 H Eos # (Auto) 0.0 Baso # (Auto) 0.1 Immature Gran # (Auto) 0.33 H Absolute Nucleated RBC 0.00 Immature Gran % 1 H Nucleated RBC % 0 ESR Retic Count (auto) 1.0 Absolute Retic 33.2 Immature Retic Fraction 15.3 H Retic Hgb Content CHr 29.0 PT INR APTT Sodium 139 Potassium 4.0 D Chloride 106 Carbon Dioxide 21.1 Anion Gap 12 BUN 35 H Creatinine 1.4 H Estim Creat Clear Calc 44.8 L eGFR 53 L BUN/Creatinine Ratio 25 H Glucose 324 H Calculated Osmolality 298 H Lactic Acid 1.4 Calcium 9.0 Corrected Calcium 9.6 Iron 12 L TIBC 134 L Iron Saturation 8 L Unsat Iron Binding 122 L Ferritin 726 H Total Bilirubin 0.2 L AST 18 ALT 39 Alkaline Phosphatase 174 H C-Reactive Prot, Quant B-Natriuretic Peptide Total Protein 6.4 Albumin 3.2 L Globulin 3.2 Albumin/Globulin Ratio 1.0 L Beta-Hydroxybutyrate/Acetoacetate Procalcitonin Ur Collection Type Catheter Urine Color Yellow Urine Clarity Turbid A Urine pH 6.0 Ur Specific [place] 1.016 Urine Protein 1+ A Urine Glucose (UA) 3+ A Urine Ketones Negative Urine Blood Trace Urine Nitrite Positive Urine Bilirubin Negative Urine Urobilinogen (Auto) Negative Ur Leukocyte Esterase Positive Urine RBC 6 H Urine WBC 134 H Ur Squamous Epith Cells 0 Amorphous Crystals Present A Urine Bacteria 4+ A SARS-CoV-2 Ag (Rapid) Assessment & Plan A&P Narrative leucocytosis hld by meds dm II, htn by meds bph by meds will see wed. current empiric rx noted. with the foot gram stain showing onlyg nr's, you can probably stop the vanco and avoid the toxicity of that agent Time Spent With Patient Time: Total time spent is greater than 50% in coordination of care (as documented) at patient's floor/unit and/or counseling patient:
--- NOTE | 2024-09-02 11:32 | XR_ITS ---
Examination: AP chest single view Technique one AP portable sitting chest single view Date and time: September 02, 2024 1148 hours INDICATIONS: Sepsis protocol FINDINGS: Minor subsegmental atelectasis left base No lobar pneumonia CABG Normal heart size IMPRESSION: No lobar pneumonia identified
--- NOTE | 2024-09-02 11:32 | EKG_ITS ---
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: EPIFANIO : 1950 Requested By: Karla Jean Baptiste Order Number: [id number] Reading MD: Karla Jean Baptiste Measurements Intervals [place] Rate: 149 P: RI: QRS: -61 QRSD: 92 T: 63 QT: 287 QTc: 452 Interpretive Statements ATRIAL FIBRILLATION WITH RAPID VENTRICULAR RESPONSE WITH ABERRANT CONDUCTION OR VENTRICULAR PREMATURE COMPLEXES MARKED LEFT AXIS DEVIATION PATTERN CONSISTENT WITH PULMONARY DISEASE NONSPECIFIC T-WAVE ABNORMALITY Compared to ECG 09/01/2024 16:10:33 Ventricular premature complex(es) now present Aberrant conduction of supraventricular beat(s) now present T-wave abnormality now present Sinus tachycardia no longer present /store/S0/[id number].pdf
[2024-09-02] MEDS: ACETAMINOPHEN 325 MG TABLET 650 MG PO (11:35)
[2024-09-02] MEDS: RINGERS LACTATED 1000 ML 1,000 ML 999 ML IV ×3 (11:54→16:00)
[2024-09-02] MEDS: PIPER/TAZO 3.375 GM PREMIX 3.375 GM/50 ML BAG IV ×2 (11:54→22:24)
[2024-09-02 12:01] LABS: Basophils # (Auto) 0.1 Thou/mm3 (0.0-0.2); Basophils % (Auto) 0 % (0-2.5); Eosinophils # (Auto) 0.0 Thou/mm3 (0.0-0.5); Eosinophils % (Auto) 0 % (0-10); Hematocrit 31.6 % (41.0-53.0); Hemoglobin 10.3 g/dL (13.5-16.0); Immature Granulocytes Auto 0.43 Thou/mm3 (0.00-0.00); Lactate (Lactic Acid) 5.3 mMol/L (0.4-2.0); Lymphocytes # (Auto) 2.9 Thou/mm3 (1.0-4.8); Lymphocytes % (Auto) 12 % (10-50); Mean Corpuscular HGB Conc 32.6 g/dl (31.0-37.0); Mean Corpuscular Hemoglobin 29.3 pg (25.0-35.0); Mean Corpuscular Volume 90 fL (80-100); Monocytes # (Auto) 0.8 Thou/mm3 (0.0-0.8); Monocytes % (Auto) 3 % (0-12); Neutrophils # (Auto) 21.4 Thou/mm3 (1.8-7.7); Neutrophils % (Auto) 83 % (37-80); Nucleated Red Blood Cell # 0.00 Thou/mm3 (0.00-0.00); Nucleated Red Blood Cell % 0 /100 WBC (0); Platelet Count 509 Thou/mm3 (140-440); RDW Standard Deviation 49.5 fL (35.1-43.9); Red Blood Count 3.52 Miln/mm3 (4.50-5.90); White Blood Count 25.6 Thou/mm3 (3.8-10.6)
--- NOTE | 2024-09-02 12:14 | PC.NURSE ---
Informed Dr. Toledo of critical lab Lactic acid 5.3
[2024-09-02 12:17] LABS: INR 1.2 (0.9-1.3); Partial Thromboplastin Time 29.6 Seconds (22.0-36.0); Prothrombin Time 13.2 Seconds (9.0-12.2)
[2024-09-02 12:28] LABS: Alanine Aminotransferase 37 U/L (10-49); Albumin, Serum 3.3 gm/dL (3.4-4.8); Albumin/Globulin Ratio 1.0 (1.2-2.2); Alkaline Phosphatase 192 U/L (46-116); Anion Gap 14 (7-16); Aspartate Amino Transferase 17 U/L (0-34); BUN/Creatinine Ratio 22 Ratio (12-20); Bilirubin,Total 0.3 mg/dL (0.3-1.2); Blood Urea Nitrogen 31 mg/dL (9-23); Calcium 8.9 mg/dL (8.3-10.6); Calcium (Corrected) 9.5 mg/dL (8.5-10.1); Carbon Dioxide 19.6 mMol/L (20.0-31.0); Chloride 105 mMol/L (98-107); Creatinine (Component) 1.4 mg/dL (0.6-1.3); Estimated Creatinine Clearance 44.8 mL/min (>60); Globulin 3.4 gm/dL (2.3-3.5); Glucose 231 mg/dL (74-106); Osmolality,Calculated 291 (275-295); Potassium 4.3 mMol/L (3.4-5.1); Procalcitonin 0.76 ng/ml (0.0-0.49); Sodium 139 mMol/L (136-145); Total Protein 6.7 gm/dL (5.7-8.2); eGFR 53 See Note
--- NOTE | 2024-09-02 12:45 | PD.IDPROG ---
Subjective Subjective Interval history: see that empiric zosyn preferred by others. limited data noted. Exam Vital Signs Temp Pulse Resp BP Pulse Ox O2 Del Method O2 Flow Rate 100 F 178 H 30 H 151/113 H 99 Room Air 4 09/02/24 11:55 09/02/24 11:27 09/02/24 11:27 09/02/24 11:27 09/02/24 11:27 09/02/24 08:00 09/02/24 11:27 Narrative Exam not seen. will likely see wed. Objective - Internal Medicine Labs 09/02/24 11:49 09/02/24 11:49 Labs: Laboratory Results - last 24 hr 09/01/24 09/01/24 09/01/24 16:00 17:53 18:16 WBC 23.2 H RBC 4.11 L Hgb 11.8 L Hct 36.2 L MCV 88 MCH 28.7 MCHC 32.6 RDW Std Deviation 48.3 H Plt Count 468 H D Neut % (Auto) 85 H Lymph % (Auto) 6 L Garfield % (Auto) 8 Eos % (Auto) 0 Baso % (Auto) 0 Neut # (Auto) 19.7 H Lymph # (Auto) 1.3 Garfield # (Auto) 1.8 H Eos # (Auto) 0.0 Baso # (Auto) 0.0 Immature Gran # (Auto) 0.38 H Absolute Nucleated RBC 0.00 Immature Gran % 2 H Nucleated RBC % 0 ESR 124 H Retic Count (auto) Absolute Retic Immature Retic Fraction Retic Hgb Content CHr PT 12.8 H INR 1.2 APTT 28.8 Sodium 135 L Potassium 4.6 Chloride 101 Carbon Dioxide 21.0 Anion Gap 13 BUN 41 H Creatinine 1.8 H Estim Creat Clear Calc 34.8 L eGFR 39 L BUN/Creatinine Ratio 23 H Glucose 309 H Calculated Osmolality 292 Lactic Acid 3.1 H Calcium 9.0 Corrected Calcium 9.4 Iron TIBC Iron Saturation Unsat Iron Binding Ferritin Total Bilirubin 0.3 AST 32 ALT 48 Alkaline Phosphatase 186 H C-Reactive Prot, Quant 24.9 H B-Natriuretic Peptide 87 Total Protein 7.0 Albumin 3.5 Globulin 3.5 Albumin/Globulin Ratio 1.0 L Beta-Hydroxybutyrate/Acetoacetate 0.4 Procalcitonin 0.89 H Ur Collection Type Urine Color Urine Clarity Urine pH Ur Specific [place] Urine Protein Urine Glucose (UA) Urine Ketones Urine Blood Urine Nitrite Urine Bilirubin Urine Urobilinogen (Auto) Ur Leukocyte Esterase Urine RBC Urine WBC Ur Squamous Epith Cells Amorphous Crystals Urine Bacteria SARS-CoV-2 Ag (Rapid) Negative 09/01/24 09/01/24 09/02/24 19:22 19:36 05:25 WBC 26.1 H RBC 3.25 L Hgb 9.5 L D Hct 28.6 L MCV 88 MCH 29.2 MCHC 33.2 RDW Std Deviation 48.1 H Plt Count 424 D Neut % (Auto) 84 H Lymph % (Auto) 7 L Garfield % (Auto) 8 Eos % (Auto) 0 Baso % (Auto) 0 Neut # (Auto) 21.9 H Lymph # (Auto) 1.8 Garfield # (Auto) 2.0 H Eos # (Auto) 0.0 Baso # (Auto) 0.1 Immature Gran # (Auto) 0.33 H Absolute Nucleated RBC 0.00 Immature Gran % 1 H Nucleated RBC % 0 ESR Retic Count (auto) 1.0 Absolute Retic 33.2 Immature Retic Fraction 15.3 H Retic Hgb Content CHr 29.0 PT INR APTT Sodium 139 Potassium 4.0 D Chloride 106 Carbon Dioxide 21.1 Anion Gap 12 BUN 35 H Creatinine 1.4 H Estim Creat Clear Calc 44.8 L eGFR 53 L BUN/Creatinine Ratio 25 H Glucose 324 H Calculated Osmolality 298 H Lactic Acid 1.4 Calcium 9.0 Corrected Calcium 9.6 Iron 12 L TIBC 134 L Iron Saturation 8 L Unsat Iron Binding 122 L Ferritin 726 H Total Bilirubin 0.2 L AST 18 ALT 39 Alkaline Phosphatase 174 H C-Reactive Prot, Quant B-Natriuretic Peptide Total Protein 6.4 Albumin 3.2 L Globulin 3.2 Albumin/Globulin Ratio 1.0 L Beta-Hydroxybutyrate/Acetoacetate Procalcitonin Ur Collection Type Catheter Urine Color Yellow Urine Clarity Turbid A Urine pH 6.0 Ur Specific [place] 1.016 Urine Protein 1+ A Urine Glucose (UA) 3+ A Urine Ketones Negative Urine Blood Trace Urine Nitrite Positive Urine Bilirubin Negative Urine Urobilinogen (Auto) Negative Ur Leukocyte Esterase Positive Urine RBC 6 H Urine WBC 134 H Ur Squamous Epith Cells 0 Amorphous Crystals Present A Urine Bacteria 4+ A SARS-CoV-2 Ag (Rapid) 09/02/24 11:49 WBC 25.6 H RBC 3.52 L Hgb 10.3 L Hct 31.6 L MCV 90 MCH 29.3 MCHC 32.6 RDW Std Deviation 49.5 H Plt Count 509 H D Neut % (Auto) 83 H Lymph % (Auto) 12 Garfield % (Auto) 3 Eos % (Auto) 0 Baso % (Auto) 0 Neut # (Auto) 21.4 H Lymph # (Auto) 2.9 Garfield # (Auto) 0.8 Eos # (Auto) 0.0 Baso # (Auto) 0.1 Immature Gran # (Auto) 0.43 H Absolute Nucleated RBC 0.00 Immature Gran % 2 H Nucleated RBC % 0 ESR Retic Count (auto) Absolute Retic Immature Retic Fraction Retic Hgb Content CHr PT 13.2 H INR 1.2 APTT 29.6 Sodium 139 Potassium 4.3 Chloride 105 Carbon Dioxide 19.6 L Anion Gap 14 BUN 31 H Creatinine 1.4 H Estim Creat Clear Calc 44.8 L eGFR 53 L BUN/Creatinine Ratio 22 H Glucose 231 H D Calculated Osmolality 291 Lactic Acid 5.3 H* Calcium 8.9 Corrected Calcium 9.5 Iron TIBC Iron Saturation Unsat Iron Binding Ferritin Total Bilirubin 0.3 AST 17 ALT 37 Alkaline Phosphatase 192 H C-Reactive Prot, Quant B-Natriuretic Peptide Total Protein 6.7 Albumin 3.3 L Globulin 3.4 Albumin/Globulin Ratio 1.0 L Beta-Hydroxybutyrate/Acetoacetate Procalcitonin 0.76 H Ur Collection Type Urine Color Urine Clarity Urine pH Ur Specific [place] Urine Protein Urine Glucose (UA) Urine Ketones Urine Blood Urine Nitrite Urine Bilirubin Urine Urobilinogen (Auto) Ur Leukocyte Esterase Urine RBC Urine WBC Ur Squamous Epith Cells Amorphous Crystals Urine Bacteria SARS-CoV-2 Ag (Rapid) Assessment & Plan A&P Narrative leucocytosis hld by meds dm II, htn by meds bph by meds will see wed. current empiric rx noted. with the foot gram stain showing onlyg nr's, you can probably stop the vanco and avoid the toxicity of that agent Time Spent With Patient Time: Total time spent is greater than 50% in coordination of care (as documented) at patient's floor/unit and/or counseling patient:
[2024-09-02 12:46] LABS: Collection Type, Urine Clean Catch
[2024-09-02 12:54] LABS: Bacteria,Urine Rare; Bilirubin,Urine Negative (Negative); Blood,Urine 2+ (Negative); Clarity,Urine Clear (Clear/Hazy); Color,Urine Lt-Yellow (Lt Yel-Yel); Glucose, Urine 2+ (Negative); Ketones,Urine Negative (Negative); Leukocyte Esterase,Urine Positive (Negative); Nitrite,Urine Negative (Negative); PH,Urine 5.0 (5.0-7.0); Protein,Urine 1+ (Neg - Trace); RBC,Urine 40 /hpf (0-3); Specific Gravity,Urine 1.015 (1.001-1.035); Squamous Epithelial Cell,Urine < 1 /hpf (0-5); Urobilinogen,Urine Negative mg/dL (0.0-1.0); WBC,Urine 19 /hpf (0-5)
--- NOTE | 2024-09-02 13:10 | PD.RESEVENT ---
Documentation for date of: 09/02/24 Event Note Event Note: Rapid response was called at AM11:30 on 09/02/2024 for patient #[id number] due to significant shivering, RR 30, and HR 173. Sepsis alert at 1131. Patient was seen and assessed in hospital bed, airway/breathing/circulation intact. Pulse present at left lower extremity. Full range of motion. NO parestheis. At the time, patient's 157/113, RR 30, HR 178, 100F oral, 92% NC 2L. Sepsis alert order set was ordered. Orders added: - Bedside glucose resulted as 247. - Lactic acid resulted as 5.3. -Ordered lactic acid every 4 hours ordered to trend labs given that lactic acid on admission was 1.4. - Chest x-ray ordered with sepsis panel was negative for pneumonia, positive for subsequent mental atelectasis of left base. - EKG showed atrial fibrillation with rapid ventricular response. - MRI lower extremity also ordered to assess for soft tissue involvement in osteomyelitis. Medications given: 1 L LR bolus, acetaminophen 650 mg once, changed ceftriaxone to piperacillin/tazobactam IV 50 mL one-time dose with subsequent 50 mL doses every 8 hours, continued vancomycin. Conclusion of rapid: patient had improvement in shivering and upgraded to telemetry floor for closer monitoring and atrial fibrilation on EKG. Assessment and plan discussed with my attending physician Dr. Mart and Dr. Toledo (PGY-2) Dr. Lima, PGY-1 - Internal Medicine Resident - The patient's plan was discussed with attending Dr. Brittny Toledo MD PGY2 Internal Medicine
[2024-09-02 14:55] LABS: Reflex Lactate? Y
--- NOTE | 2024-09-02 15:38 | XR_ITS ---
Examination: MRI right foot, without contrast Date and time of exam: September 02, 2024, 1704 hours INDICATIONS: Nonhealing wound distal right foot post amputation Technique: Multiple axial sagittal and coronal images of the right foot have been obtained with the Siemens high-resolution 1.5 [place] MRI scanner. Images obtained include T2-weighted fat-suppressed sagittal sections, TR 3500, TE 46, T2 weighted coronal fat suppressed images, TR 3050, TE 84, T2-weighted transverse fat suppressed images, TR 3260, TE 63, proton density transverse images, TR 4720 TE 46, and T1 weighted coronal images, TR 560, TE 13. Findings: Soft tissue defect posterior to the calcaneus, sagittal image 11 No kenny cortical bone destruction involving the calcaneus Achilles tendon is thickened Amputation at the level of the proximal metatarsals Edema in the plantar aspect of the foot There is cortical irregularity involving all of the amputated stumps of the metatarsals Impression : Negative for calcaneal osteomyelitis There is cortical irregularity involving all of the amputated stumps of the metatarsals suspicious for early osteomyelitis, the patient be clinically correlated
[2024-09-02 15:54] LABS: Lactate (Lactic Acid) 1.2 mMol/L (0.4-2.0)
--- NOTE | 2024-09-02 16:18 | XR_ITS ---
Examination: Venous duplex lower extremity sonogram, bilateral. Date and time of exam: September 02, 2024 1754 hours INDICATIONS: Nonhealing wound in the right leg for months, status post first digit amputation April 2023 Technique: Multiple sonographic images of the deep venous system have been obtained. B-mode/2-D grayscale imaging of vascular structures and Doppler spectral analysis (waveforms) and color performed Both legs are examined. Findings: Deep venous systems do not demonstrate abnormal echogenicity. All visualized deep veins exhibit compressibility. All visualized deep veins exhibit augmentation. Impression: Negative for deep vein thrombosis
--- NOTE | 2024-09-02 17:16 | PD.SURCONS ---
HPI Consult details History of present illness: 74M with HTN, HLD, DMII, TIA, CKD and PAD who initially underwent right great toe amputation April 2024, followed by TMA by Dr. Bravo in [place] 2 months later. Patient had been following with Dr. Bravo however due to insurance issues he is no longer able to see him. Patient has also been seen by Dr. Nobles vascular surgeon. Patient was brought to ER yesterday because his daughter noted he was more weak and that the foot was becoming more red. Patient has noted to have leukocytosis in the 20s, UA with pyuria and x-ray showing osteomyelitis of the amputated metatarsals. He developed tachycardia during this admission, read as atrial fibrillation and he was transferred to telemetry, with heart rate now well-controlled PMH: HLD, HTN, DMII, CKD, CAD, TIA in 2021, PAD, BPH, and depression PSH: Open heart valve replacement in 2008, CABG, R great toe amputation and TMA earlier this year Meds: currently taking ASA 81mg, no other antiplt during this hospitalization Allergies: NKDA SH: Lives with daughter, not ambulatory at the moment Review of Systems Review of Systems ROS Unobtainable: All systems reviewed & no additional complaints except as documented Meds Home Medications and Allergies Home Medications ?Medication ?Instructions ?Recorded ?Confirmed ?Type aspirin 81 mg tablet,delayed 81 mg PO QDAY 11/17/17 09/02/24 History release (Bert Low Dose Aspirin) clopidogrel 75 mg tablet (Plavix) 75 mg PO QDAY 11/17/17 09/02/24 History metoprolol tartrate 25 mg tablet 50 mg PO BID 11/17/17 09/02/24 History semaglutide 1 mg/dose (4 mg/3 mL) 1 mg subcut QWEEK 04/07/24 09/02/24 History subcutaneous pen injector (Ozempic) oxybutynin chloride 10 mg 10 mg PO HS 09/02/24 09/02/24 History tablet,extended release 24 hr sertraline 50 mg tablet 50 mg PO DAILY 09/02/24 09/02/24 History Allergies Allergy/AdvReac Type Severity Reaction Status Date / Time No Known Allergies Allergy Verified 08/22/24 12:58 Exam Vital Signs Temp Pulse Resp BP Pulse Ox O2 Del Method O2 Flow Rate 99.1 F 157 H 24 H 105/50 L 97 Nasal Cannula 2 09/02/24 12:35 09/02/24 13:00 09/02/24 13:00 09/02/24 12:30 09/02/24 13:00 09/02/24 12:30 09/02/24 13:00 Constitutional Constitutional: no acute distress Routine Respiratory Exam Respiratory: Present no resp distress Routine Extremities Exam Comments: Right TMA wound with scattered fibrinous tissue and purulent drainage can be expressed from the distal and lateral aspect. The calcaneus does have an eschar and there is some erythema of the plantar surface of the foot. The foot is warm but there is no palpable pulse Results Results: Laboratory Laboratory results: results reviewed Results: Imaging Imaging narrative: Foot x-ray reviewed Assessment & Plan Plan 74M with HTN, HLD, DMII, TIA, CKD and PAD who initially underwent right great toe amputation April 2024, followed by TMA by Dr. Bravo in [place] 2 months later, presenting with osteomyelitis of the TMA site as well as an eschar of the heel. I explained that heel wounds can be difficult to recover from and that patient may ultimately require a below-knee amputation but will first require further workup Follow-up MRI, I also ordered ENRRIQUE PVR Cardiology evaluation for possible surgery Continue antibiotics Will continue to follow
--- NOTE | 2024-09-02 17:24 | XR_ITS ---
Examination: Arterial duplex lower extremity study. Date and time of exam: September 02, 2024, 1827 hours INDICATIONS: Nonhealing wound right first digit 4 months Findings: Duplex sonographic imaging of the lower extremity arteries using B-mode/Francisco scale imaging and Doppler spectral analysis and color flow. Ankle brachial indices have been recorded. Right common femoral artery demonstrates triphasic flow. Right superficial femoral artery demonstrates triphasic flow. Right popliteal artery demonstrates monophasic flow. Right posterior tibial artery demonstrated triphasic flow. Right ankle/brachial index is 0.95. Left common femoral artery demonstrates triphasic flow. Left superficial femoral artery demonstrates triphasic flow. Left popliteal artery demonstrates triphasic flow. Left posterior tibial artery demonstrated monophasic flow. Left ankle/brachial index is 1.0. Impression: Bilateral peripheral obstructive arterial disease, consider correlation with CTA abdominal aorta iliofemoral runoff post intravenous contrast
[2024-09-02] MEDS: SERTRALINE HCL 25 MG TABLET 50 MG PO (20:42)
[2024-09-02] MEDS: INSULIN GLARGINE (Lantus) 5 UNIT/0.05 ML (PER 5 UNITS) 10 UNIT SC (20:59)
[2024-09-02] MEDS: VANCOMYCIN/WATER 1GM IVPB 200 ML IV (22:02)
[2024-09-03] VITALS (9 sets, daily range): BP systolic 134–153; BP diastolic 67–82; PULSE 72–88; RESP 18–98; TEMP 36.1–37.1; O2SAT 96–98; BMI 29.5
[2024-09-03 05:41] LABS: Basophils # (Auto) 0.1 Thou/mm3 (0.0-0.2); Basophils % (Auto) 0 % (0-2.5); Eosinophils # (Auto) 0.0 Thou/mm3 (0.0-0.5); Eosinophils % (Auto) 0 % (0-10); Hematocrit 26.7 % (41.0-53.0); Hemoglobin 8.9 g/dL (13.5-16.0); Immature Granulocytes Auto 0.41 Thou/mm3 (0.00-0.00); Lymphocytes # (Auto) 1.3 Thou/mm3 (1.0-4.8); Lymphocytes % (Auto) 5 % (10-50); Mean Corpuscular HGB Conc 33.3 g/dl (31.0-37.0); Mean Corpuscular Hemoglobin 29.3 pg (25.0-35.0); Mean Corpuscular Volume 88 fL (80-100); Monocytes # (Auto) 1.9 Thou/mm3 (0.0-0.8); Monocytes % (Auto) 8 % (0-12); Neutrophils # (Auto) 20.7 Thou/mm3 (1.8-7.7); Neutrophils % (Auto) 85 % (37-80); Nucleated Red Blood Cell # 0.00 Thou/mm3 (0.00-0.00); Nucleated Red Blood Cell % 0 /100 WBC (0); Platelet Count 410 Thou/mm3 (140-440); RDW Standard Deviation 48.6 fL (35.1-43.9); Red Blood Count 3.04 Miln/mm3 (4.50-5.90); White Blood Count 24.4 Thou/mm3 (3.8-10.6)
[2024-09-03] MEDS: PIPER/TAZO 3.375 GM PREMIX 3.375 GM/50 ML BAG IV ×3 (06:04→21:21)
[2024-09-03 06:12] LABS: Alanine Aminotransferase 25 U/L (10-49); Albumin, Serum 2.6 gm/dL (3.4-4.8); Albumin/Globulin Ratio 0.9 (1.2-2.2); Alkaline Phosphatase 149 U/L (46-116); Anion Gap 11 (7-16); Aspartate Amino Transferase 15 U/L (0-34); BUN/Creatinine Ratio 22 Ratio (12-20); Bilirubin,Total 0.2 mg/dL (0.3-1.2); Blood Urea Nitrogen 28 mg/dL (9-23); Calcium 8.2 mg/dL (8.3-10.6); Calcium (Corrected) 9.3 mg/dL (8.5-10.1); Carbon Dioxide 22.4 mMol/L (20.0-31.0); Chloride 107 mMol/L (98-107); Creatinine (Component) 1.3 mg/dL (0.6-1.3); Estimated Creatinine Clearance 53.9 mL/min (>60); Globulin 2.9 gm/dL (2.3-3.5); Glucose 217 mg/dL (74-106); Magnesium 1.6 mg/dL (1.6-2.6); Osmolality,Calculated 291 (275-295); Phosphorous 2.1 mg/dL (2.4-5.1); Potassium 4.0 mMol/L (3.4-5.1); Sodium 140 mMol/L (136-145); Total Protein 5.5 gm/dL (5.7-8.2); eGFR 58 See Note
[2024-09-03 06:47] LABS: Hepatitis C Antibody Non Reactive (Non React)
[2024-09-03] MEDS: INSULIN LISPRO (AdmeLOG) 1 UNIT/0.01 ML UNIT SC ×3 (07:54→17:37)
[2024-09-03] MEDS: FINASTERIDE 5 MG TABLET PO (08:36)
[2024-09-03] MEDS: ASPIRIN EC 81 MG TABEC PO (08:36)
[2024-09-03] MEDS: HEPARIN SOD INJ 5000 UNIT/ML VIAL SC ×2 (08:36→21:21)
--- NOTE | 2024-09-03 10:04 | PD.RESPRO ---
Documentation for date of: 09/03/24 Senior Resident Attestation: I have discussed the case with supervising physician and design engineering intern physician involved in the care of patient. I personally saw and examined patient and discussed the assessment and plan with the entire medical team, including attending. I agree with assessment and plan as documented above. Tenisha Toledo MD PGY-2 Internal Medicine Subjective Subjective Interval history: Overnight events: No acute events overnight. Patient was seen and examined at bedside. AM vitals and labs reviewed. Patient was resting comfortably in bed. Monroe bag noted to be full. Patient aware of self and place, but believes that it was May. Patient states that he only has pain in his right leg. Patient denies fever and chills, and other symptoms. Explained to the patient about wound culture resulting in gram-positive cocci, which is covered by patient's current vancomycin and Zosyn regimen, and also notified the patient of surgery's plan for potential debridement. Patient is agreeable to the news about debridement. Review of systems otherwise negative except for what is mentioned above. Exam Vital Signs Temp Pulse Resp BP Pulse Ox O2 Del Method O2 Flow Rate 98.7 F 85 20 135/76 H 96 Room Air 1 09/03/24 07:51 09/03/24 08:39 09/03/24 08:39 09/03/24 07:51 09/03/24 07:51 09/03/24 07:51 09/02/24 16:00 Narrative Exam Physical Exam: General: Alert, no acute distress. Skin: Warm, dry, intact, no obvious rash. Head: Normocephalic, atraumatic. Eye: Normal conjunctiva, PERRL. Cardiovascular: Regular rate and rhythm, no murmur, +S1/S2. Respiratory: Lungs are clear to auscultation, respirations unlabored, no crackles, no wheezing. Gastrointestinal: Soft, nontender, non-distended. No guarding or rebound tenderness. Extremities: No edema, no cyanosis, no clubbing. 2+ radial pulse bilaterally, 1+ pedal pulse bilaterally. Right foot wrapped tightly with gauze. Neuro: No focal deficits observed. Conversant, moving all extremities. No overt cerebellar signs/incoordination. Psychiatric: Cooperative, flat affect. Objective Labs 09/04/24 04:37 09/04/24 04:37 Labs: Laboratory Results - last 24 hr 09/02/24 09/02/24 09/02/24 11:49 12:03 15:45 WBC 25.6 H RBC 3.52 L Hgb 10.3 L Hct 31.6 L MCV 90 MCH 29.3 MCHC 32.6 RDW Std Deviation 49.5 H Plt Count 509 H D Neut % (Auto) 83 H Lymph % (Auto) 12 Imperial % (Auto) 3 Eos % (Auto) 0 Baso % (Auto) 0 Neut # (Auto) 21.4 H Lymph # (Auto) 2.9 Imperial # (Auto) 0.8 Eos # (Auto) 0.0 Baso # (Auto) 0.1 Immature Gran # (Auto) 0.43 H Absolute Nucleated RBC 0.00 Immature Gran % 2 H Nucleated RBC % 0 PT 13.2 H INR 1.2 APTT 29.6 Sodium 139 Potassium 4.3 Chloride 105 Carbon Dioxide 19.6 L Anion Gap 14 BUN 31 H Creatinine 1.4 H Estim Creat Clear Calc 44.8 L eGFR 53 L BUN/Creatinine Ratio 22 H Glucose 231 H D Calculated Osmolality 291 Lactic Acid 5.3 H* 1.2 Calcium 8.9 Corrected Calcium 9.5 Phosphorus Magnesium Total Bilirubin 0.3 AST 17 ALT 37 Alkaline Phosphatase 192 H Total Protein 6.7 Albumin 3.3 L Globulin 3.4 Albumin/Globulin Ratio 1.0 L Procalcitonin 0.76 H Ur Collection Type Clean Catch Urine Color Lt-Yellow Urine Clarity Clear Urine pH 5.0 Ur Specific Gary 1.015 Urine Protein 1+ A Urine Glucose (UA) 2+ A Urine Ketones Negative Urine Blood 2+ A Urine Nitrite Negative Urine Bilirubin Negative Urine Urobilinogen (Auto) Negative Ur Leukocyte Esterase Positive Urine RBC 40 H Urine WBC 19 H Ur Squamous Epith Cells < 1 Urine Bacteria Rare Hepatitis C Antibody 09/03/24 04:53 WBC 24.4 H RBC 3.04 L Hgb 8.9 L Hct 26.7 L MCV 88 MCH 29.3 MCHC 33.3 RDW Std Deviation 48.6 H Plt Count 410 D Neut % (Auto) 85 H Lymph % (Auto) 5 L Imperial % (Auto) 8 Eos % (Auto) 0 Baso % (Auto) 0 Neut # (Auto) 20.7 H Lymph # (Auto) 1.3 Imperial # (Auto) 1.9 H Eos # (Auto) 0.0 Baso # (Auto) 0.1 Immature Gran # (Auto) 0.41 H Absolute Nucleated RBC 0.00 Immature Gran % 2 H Nucleated RBC % 0 PT INR APTT Sodium 140 Potassium 4.0 Chloride 107 Carbon Dioxide 22.4 Anion Gap 11 BUN 28 H Creatinine 1.3 Estim Creat Clear Calc 53.9 L eGFR 58 L BUN/Creatinine Ratio 22 H Glucose 217 H Calculated Osmolality 291 Lactic Acid Calcium 8.2 L Corrected Calcium 9.3 Phosphorus 2.1 L Magnesium 1.6 Total Bilirubin 0.2 L AST 15 ALT 25 Alkaline Phosphatase 149 H D Total Protein 5.5 L Albumin 2.6 L D Globulin 2.9 Albumin/Globulin Ratio 0.9 L Procalcitonin Ur Collection Type Urine Color Urine Clarity Urine pH Ur Specific Gary Urine Protein Urine Glucose (UA) Urine Ketones Urine Blood Urine Nitrite Urine Bilirubin Urine Urobilinogen (Auto) Ur Leukocyte Esterase Urine RBC Urine WBC Ur Squamous Epith Cells Urine Bacteria Hepatitis C Antibody Non Reactive Quality Measures Quality Measures sepsis Current suspected stage: sepsis Possible source: bone/joint, genitourinary and skin/soft tissue Blood cultures ordered: yes Antibiotic ordered: Yes Advance care planning discussed with:: patient Assessment & Plan Assessment Current Active Medications: Generic Name Dose Route Start Last Admin Trade Name Freq PRN Reason Stop Dose Admin Acetaminophen 650 mg 09/01/24 22:20 09/02/24 11:35 Acetaminophen 325 Mg Tablet PO 10/01/24 22:19 650 mg Q6H PRN Administration PAIN SCALE 1-3 (mild Amlodipine Besylate 5 mg 09/02/24 09:00 09/02/24 08:58 Amlodipine Besylate 5 Mg Tablet PO 10/02/24 08:59 5 mg QDAY ALEXIS Administration Aspirin 81 mg 09/02/24 09:00 09/03/24 08:36 Aspirin Ec 81 Mg Tabec PO 10/02/24 08:59 81 mg QDAY ALEXIS Administration Bisacodyl 5 mg 09/02/24 16:24 Bisacodyl 10 Mg Supp ND 10/02/24 16:22 QDAY PRN Constipation, patient prefers Protocol Dextrose 25 ml 09/01/24 22:23 Dextrose 50%-Water Inj 50 Ml Syringe IV 10/01/24 22:22 Q15MIN PRN BG 50-70 responsive npo pt Dextrose 50 ml 09/01/24 22:23 Dextrose 50%-Water Inj 50 Ml Syringe IV 10/01/24 22:22 Q15MIN PRN BG <50 OR BG <70 & pt unresponsive Finasteride 5 mg 09/02/24 09:00 09/03/24 08:36 Finasteride 5 Mg Tablet PO 10/02/24 08:59 5 mg QDAY ALEXIS Administration Glucagon 1 mg 09/01/24 22:23 Glucagon Inj 1 Mg Vial IM Q15MIN PRN BG <70, and no IV access Heparin Sodium (Porcine) 5,000 unit 09/02/24 09:00 09/03/24 08:36 Heparin Sod Inj 5000 Unit/Ml Vial SC 09/16/24 08:59 5,000 unit Q12HR ALEXIS Administration Vancomycin HCl 200 mls @ 120 mls/hr 09/02/24 22:00 09/02/24 22:43 Vancomycin/Water 1gm Ivpb IV 09/09/24 21:59 Infused QPM@2200 ALEXIS Infusion Protocol Piperacillin/Tazobactam/Dextrose 3.375 gm in 50 mls @ 12.5 mls/hr 09/02/24 22:00 09/03/24 06:04 Zosyn IV 09/09/24 21:59 12.5 mls/hr Q8HR ALEXIS Administration Insulin Glargine 10 unit 09/02/24 21:00 09/02/24 20:59 Insulin Glargine (Lantus) 5 Unit/0.05 Ml (Per 5 Units) SC 10/02/24 20:59 10 unit HS ALEXIS Administration Insulin Human Lispro 0 unit 09/02/24 07:30 09/03/24 07:54 Insulin Lispro (Admelog) 1 Unit/0.01 Ml Unit SC 10/02/24 07:29 2 unit ACHS ALEXIS Administration Protocol Ondansetron HCl 4 mg 09/01/24 22:20 Ondansetron Inj 2 Mg/Ml Inj 2 Ml IVP 10/01/24 22:19 Q6H PRN NAUSEA OR VOMITING Protocol Pharmacy Consult 1 each 09/02/24 09:00 Vancomycin Pharmacy To Dose 1 Each Each IV 10/02/24 08:59 QDAY PRN PROTOCOL Sennosides 1 tab 09/01/24 22:20 Senna Tablet PO 10/01/24 22:19 QDAY PRN constipation Protocol Sertraline HCl 50 mg 09/02/24 21:00 09/02/24 20:42 Sertraline Hcl 25 Mg Tablet PO 10/02/24 20:59 50 mg HS ALEXIS Administration Plan Mr. Marc is a 74 year old gentleman with a past history of PAD, HTN, T2DM, HLD, and s/p amputation of right metatarsals who presented to the ED with concerns of generalized weakness and AMS. The patient was admitted for sepsis management due to osteomyelitis of right foot and urinary tract infection. 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 Plantar Edema #Eschar of right heel #Leukocytosis Patient had difficulty healing his right foot after toe amputation to metatarsals about 2 months ago. The poor healing was likely due to the patient's history of peripheral artery disease. The patient presented with fever of 103.8, heart rate 112, and WBC 23.2 in the ED with source of infection (right foot) and evidence of endorgan damage in elevated creatinine. Foot x-ray done in ED showed cortical bone destruction of distal metatarsals in right foot, further suggesting osteomyelitis. Active pus in right foot, black escar of right heel, and erythematous right foot support signs of active infection in patient. qSofa 1 w/ end organ damage JULIO on CKD and lactic acid ? Continue vancomycin [09/02/24--] and piperacillin/tazobactam [09/02/2024--] ? LR x 3 bolus 09/02/2024 ? Blood cultures x 2 drawn 09/01 pending results ? Right foot wound culture 09/01 pending results ? Preliminary results 09/03: Gram-positive cocci [empiric antibiotic coverage: Piperacillin/tazobactam & vancomycin] ? Foot x-ray 09/01 and foot MRI 09/02 support osteomyelitis at transmetatarsal amputation site ? General Surgery Consulted, Dr. Miller, appreciate recommendations ? Made aware that general surgery will pursue debridement, pending cardiology clearance ? Cardiology consulted for surgery clearance, appreciate recommendations ? Infectious disease Consulted, Dr. Blankenship, appreciate recommendations #Urinary tract infection Patient had urinalysis performed in ED, which showed WBC 134 with 4+ bacteria, positive urine nitrate, 3+ glucose, and 1+ protein. Due to patient's altered mental status, will monitor and manage with antibiotic treatment. ? Initially managed with ceftriaxone started on 09/01, swap to piperacillin/tazobactam on 09/02 ? Will monitor progression with CBC and daily examinations #JULIO on CKD, likely secondary to sepsis vs dehydration #Metabolic Acidosis, anion gap, secondary to Lactic Acidosis Patient presented with BUN 35, creatinine 1.4, GFR 53. Possible explanations as to why include decreased blood flow due to sepsis from patient's osteomyelitis and/or urinary tract infection or decreased fluid intake due to altered mental status. Patient has slightly decreased bicarb at 19.6 with an anion gap, likely due to elevated lactic acid at 5.3. ? Will monitor with daily renal panel ? Will continue IV hydration with lactated Ringer's ? Will renally dose medication and avoid nephrotoxic medication ? Will hold patient's home lisinopril until improvement of JULIO #Anemia of chronic disease Patient had decreased H&H of 10.3/31.6 with MCV of 90. Iron panel abnormal with iron at 12, UIBC 134, iron saturation 8%, ferritin 726. Plan ? No iron tablets, given concern for sepsis ? Will monitor with daily CBC ? Will transfuse if hemoglobin drops below 7 per protocol #Hyperglycemia #Type 2 diabetes mellitus on insulin #Diabetic neuropathy Patient has reported history of type 2 diabetes mellitus and diabetic neuropathy that likely led to transmetatarsal amputation. Home glargine 20 units, Glipizide, and Januvia. Plan ? Increase glargine to 15 units from 10, continue sliding scale ? Will hold patient's home glipizide & hold patient's home Januvia due to current UTI ? Continue to monitor fasting blood glucose, may require Glargine 20 units. #Hyperlipidemia #History of peripheral artery disease #History of thrombus in RLE Patient was reported to have a history of hyperlipidemia on home atorvastatin 20 mg. Patient's family reports that the patient received surgical care at [facility] in [place], [place] as they have specialists to manage peripheral artery disease in patients who require amputations in the lower extremities. 1+ pedal pulse noted in bilateral lower extremities. Likely a contributor to poor wound healing post transmetatarsal amputation, which likely contributed to infection that led to osteomyelitis. ? Held home atorvastatin 20 mg ? US LE veins 09/02 negative for DVT ? US LE arteries positive for right popliteal monophasic flow and left posterior tibial artery monophasic flow, but left and right ENRRIQUE greater than 0.9 #Hypophosphatemia Patient had phosphorus of 2.1 on 08/25 9 AM labs. ? Ordered potassium phosphate packet [Neutra-Phos] one-time dos ? Will monitor with a.m. phosphorus levels #Thromcytosis Patient has elevated platelet count at 509 on 09/02 likely reactive secondary to acute infection. ? Will monitor with daily CBC #Constipation Patient has bowel movements every few days per family members. Patient responds well to home bisacodyl 5mg PRN. ? Will restart home bisacodyl 5mg PRN DVT Prophylaxis: Heparin GI Prophylaxis: N/A Diet: NPO Monroe: Yes Lines: Peripheral IV Antibiotics: Vancomycin & ceftriaxone Code Status: FULL Reason for Hospitalization: Sepsis due to osteomyelitis and UTI Other Barriers to Discharge: Pending debridement from General Surgery Patient plan of care was discussed with the senior resident Dr. Toledo (PGY-2) and attending physician Dr. Rhett Lima, PGY1 Attending Provider Attestation/Addendum I attest that I was physically present for the evaluation, physical examination, lab and imaging review of the patient with the residents. I discussed the case with the residents and agree with the findings and plans of care as documented above. Joel Delaney MD
--- NOTE | 2024-09-03 11:37 | PC.SS ---
CAKE STRIPPER confirmed with patient's daughter, Renea Franklin ; that discharge plan is for the patient to return home with home laurie. Patient is established with [facility]. Patient's PCP is Dr. Herrera. Home address is [address] [place] [address].
--- NOTE | 2024-09-03 12:34 | ECHO_ITS ---
Transthoracic Echo Report Ht (in): 68 Wt (lb): 195 Exam Location: Echo Lab Status: Inpatient [employer] Counselor: Dali Esquivel Indications: Procedure Performed: BP: 134 / 67 HR: 85 Technical Quality: Technically difficult study MEASUREMENTS (Male / Female) Normal Values 2D ECHO LV Diastolic Diameter PLAX 4.7 cm 4.2 - 5.9 / 3.9 - 5.3 cm LV Systolic Diameter PLAX 3.4 cm IVS Diastolic Thickness 1.0 cm 0.6 - 1.0 / 0.6 - 0.9 cm LVPW Diastolic Thickness 1.3 cm 0.6 - 1.0 / 0.6 - 0.9 cm LV Relative Wall Thickness 0.5 LVOT Diameter 2.2 cm Aortic Root Diameter 3.6 cm LV Ejection Fraction MOD BP 38.8 % >= 55 % LV Cardiac Index MOD BP 2072.5 cm?/min?m? LV Ejection Fraction MOD 4C 44.9 % LV Cardiac Index MOD 4C 2492.7 cm?/min?m? LV Ejection Fraction 4C AL 46.8 % LV Cardiac Index 4C AL 2692.5 cm?/min?m? LV Ejection Fraction MOD 2C 32.2 % LV Cardiac Index MOD 2C 1644.1 cm?/min?m? LV Ejection Fraction 2C AL 32.2 % LV Cardiac Index 2C AL 1665.1 cm?/min?m? LA Volume Index 25.4 cm?/m? 16 - 28 cm?/m? M-MODE Aortic Root Diameter MM 3.3 cm LA Systolic Diameter MM 4.1 cm LA Ao Ratio MM 1.2 AV Cusp Separation MM 1.8 cm DOPPLER AV Peak Velocity 119.1 cm/s AV Peak Gradient 5.7 mmHg AV Mean Gradient 4.0 mmHg AV Velocity Time Integral 26.8 cm LVOT Peak Velocity 90.8 cm/s LVOT Peak Gradient 3.3 mmHg LVOT Velocity Time Integral 18.9 cm LVOT Cardiac Index 2931.1 cm?/min?m? AV Area Cont Eq vti 2.7 cm? AV Area Cont Eq pk 2.9 cm? MV Area PHT 3.3 cm? Mitral E Point Velocity 72.8 cm/s Mitral A Point Velocity 106.0 cm/s Mitral E to A Ratio 0.7 LV E' Lateral Velocity 8.7 cm/s Mitral E to LV E' Lateral Ratio 8.4 LV E' Septal Velocity 9.9 cm/s Mitral E to LV E' Septal Ratio 7.4 PV Peak Velocity 106.0 cm/s PV Peak Gradient 4.5 mmHg FINDINGS Left Ventricle Normal left ventricular size, wall thickness, systolic function with no obvious regional wall motion abnormalities. The ejection fraction is visually estimated at 55 %. There is grade I diastolic dysfunction of the left ventricle (impaired relaxation pattern). Right Ventricle The right ventricle is normal in size and systolic function. Left Atrium The left atrium is normal by two-dimensional, color flow and Doppler imaging with no structural abnormalities, no thrombus formation present. Right Atrium The right atrium is normal by two-dimensional imaging, color flow and Doppler imaging with no structural abnormalities, no thrombus formation present. Atrial Septum The interatrial septum appears normal with no evidence of a shunt. Aorta The aorta is normal by two-dimensional, color flow and Doppler interrogation. Mitral Valve Mild mitral annular calcification. Trace mitral regurgitation. Aortic Valve Aortic valve sclerosis. Tricuspid Valve The tricuspid valve is normal by two-dimensional, color flow and Doppler interrogation. There is trace tricuspid valve regurgitation. Pulmonic Valve The pulmonic valve is not well visualized. There is no significant pulmonic valve regurgitation. Vessels Inferior vena cava not well visualized. Pericardium The pericardium is normal by two-dimensional imaging. There is no significant pericardial effusion. CONCLUSIONS Indication: Cardiac clearance Normal LV size and function. Estimated EF at 55 %. There is grade I diastolic dysfunction. The RV is normal in size and systolic function. Mild MAC. Trace MR and TR. Aortic valve sclerosis. Ally Rocha (Electronically Signed) Final Date: 04 September 2024 13:33
[2024-09-03] MEDS: NAPH,KPH MBDB 1 PACKET (1.5 GM) PO (12:39)
--- NOTE | 2024-09-03 12:49 | ESPR_ITS ---
Documentation for date of: 09/03/24 Subjective Subjective Brief History: 74M with HTN, HLD, DMII, TIA, CKD and PAD who initially underwent right great toe amputation April 2024, followed by TMA by Dr. Bravo in [place] 2 months later. Patient had been following with Dr. Bravo however due to insurance issues he is no longer able to see him. Patient has also been seen by Dr. Nobles vascular surgeon. Patient was brought to ER yesterday because his daughter noted he was more weak and that the foot was becoming more red. Patient has noted to have leukocytosis in the 20s, UA with pyuria and x-ray showing osteomyelitis of the amputated metatarsals. He developed tachycardia during this admission, read as atrial fibrillation and he was transferred to telemetry, with heart rate now well- controlled PMH: HLD, HTN, DMII, CKD, CAD, TIA in 2021, PAD, BPH, and depression PSH: Open heart valve replacement in 2008, CABG, R great toe amputation and TMA earlier this year Meds: currently taking ASA 81mg, no other antiplt during this hospitalization Allergies: NKDA SH: Lives with daughter, not ambulatory at the moment Narrative: MRI yesterday negative for calcaneal osteomyelitis, ENRRIQUE/PVR showing bilateral PAD, WBC 24 remaining afebrile Exam Vital Signs Temp Pulse Resp BP Pulse Ox O2 Del Method O2 Flow Rate 97.2 F 72 18 134/67 H 98 Room Air 1 09/03/24 12:00 09/03/24 12:00 09/03/24 12:00 09/03/24 12:00 09/03/24 12:00 09/03/24 12:00 09/02/24 16:00 Constitutional Constitutional: no acute distress Routine Respiratory Exam Respiratory: Present no resp distress Results Results: Laboratory Laboratory results: results reviewed Results: Imaging Imaging narrative: MRI, ENRRIQUE/PVR reviewed Assessment & Plan Plan 74M with HTN, HLD, DMII, TIA, CKD and PAD who initially underwent right great toe amputation April 2024, followed by TMA by Dr. Bravo in [place] 2 months later, presenting with osteomyelitis of the TMA site as well as an eschar of the heel. As pt does not have calcaneal osteomyelitis I explained to family that I can attempt to salvage the foot by performing incision and drainage along with excisional debridement, but that there is still a significant chance he will go on to need a below knee amputation. They are motivated to have him follow up with Wound Healing as well as a vascular surgeon I&D, excisional debridement of R foot tomorrow 09/04 Appreciate cardiology recs NPO after MN
--- NOTE | 2024-09-03 14:23 | PC.SS ---
Rounding Note: Plan is for surgery tomorrow. Surgeon is Dr. Miller.
--- NOTE | 2024-09-03 16:15 | ESCONSULT_ITS ---
<Statement entered by Murali Davison MD - 09/04/24 13:30> I personally examined evaluated this patient alongside history of CAD status post bypass surgery multivessel disease no active chest pain shortness requesting cardiac clearance based on clinical assessment patient stable to have procedure proceed with surgery as scheduled tomorrow will get a cardiac echo tonight and reviewed. Evaluated patient with resident physician Dr. Farr agree with the treatment plan recommendation as documented. HPI Data of Consult Requesting Physician: Joel Delaney MD Admitting Provider: Joel Delaney MD Attending Provider: Joel Delaney MD Primary Care Provider: Yonny Herrera MD Consult Narrative History of present illness: Mr. Marc is a 74-year-old male with past medical history significant for hypertension, uncontrolled type 2 diabetes, diabetic neuropathy hyperlipidemia, PAD, CAD status post bypass graft surgery and stents presented to the ED due to somnolence and generalized weakness. Upon hospitalization patient was also noted to have erythematous and right foot swelling. Per chart reviewing patient was hospitalized at [facility] and had undergone partial amputation of right foot approximately 2 months ago. Patient underwent left heart cardiac catheterization with Dr. Davison in 2020 and was found to have multivessel disease and was recommended to undergo medical management and angioplasty at possibly stents in the LAD and the distal posterior descending branch of the right coronary artery. Patient did have a history of stent in the RCA by another security escort and a bypass graft of the LAD. Patient was supposed to follow-up outpatient with Dr. Davison however due to insurance issues patient was lost to follow-up in the last year or so and has been following Dr. Ayala outpatient in [place]. Patient denies any chest pain, tightness, pressure, palpitations. Patient also denies any dizziness or syncopal episodes. Patient also denies any repeat angiogram since 2020 and no new stents were placed since. Cardiology is consulted for cardiac clearance for excisional debridement of the left foot with possible below-knee amputation. PMH: hypertension, uncontrolled type 2 diabetes, diabetic neuropathy hyperlipidemia, PAD, CAD PSH: right partial foot amputations, PCI, angioplasty SH: deniess tobacco, alcohol or illicit drug use Medications: sertraline, oxybutynin, others not brought by daughter Allergies: none cc:: cc: Joel Delaney MD Review of Systems Review of Systems Systems Reviewed: All systems reviewed, normal except as documented Exam Vital Signs Temp Pulse Resp BP Pulse Ox O2 Del Method O2 Flow Rate 98.2 F 87 18 149/78 H 98 Room Air 1 09/03/24 20:00 09/03/24 20:00 09/03/24 20:00 09/03/24 20:00 09/03/24 20:00 09/03/24 20:00 09/02/24 16:00 Narrative Exam GENERAL: A&Ox3 . Awake, Not in acute distress NEURO: no focal neurological deficits HEENT: Atraumatic, Normocephalic. mucous membranes moist. Eyes open, symmetrical, & clear HEART: Normal Heart Sounds LUNGS: Clear to auscultation with no wheezing or crackles. ABDOMEN: soft, non-distended, non-tender, bowel sounds heard, no guarding or rebound tenderness SKIN: No Rash or ecchymoses EXTREMITIES: No edema, tenderness, able to move all 4 extremities, right foot partially amputated and in a bandage, remaining of foot looks erythematousextending above the ankle Results Labs 09/03/24 04:53 09/03/24 04:53 Labs: Short CBC 09/03/24 Range/Units 04:53 WBC 24.4 H (3.8-10.6) Thou/mm3 Hgb 8.9 L (13.5-16.0) g/dL Hct 26.7 L (41.0-53.0) % Plt Count 410 D (140-440) Thou/mm3 BMP 09/03/24 04:53 Sodium 140 Potassium 4.0 Chloride 107 Carbon Dioxide 22.4 BUN 28 H Creatinine 1.3 Glucose 217 H Calcium 8.2 L Liver Function 09/03/24 Range/Units 04:53 Total Bilirubin 0.2 L (0.3-1.2) mg/dL AST 15 (0-34) U/L ALT 25 (10-49) U/L Alkaline Phosphatase 149 H D (46-116) U/L Albumin 2.6 L D (3.4-4.8) gm/dL Quality Measures Quality Measures sepsis Current suspected stage: ruled out Possible source: bone/joint, genitourinary and skin/soft tissue Blood cultures ordered: yes Antibiotic ordered: Yes Advance care planning discussed with:: patient Medications Home Medications and Allergies Home Medications ?Medication ?Instructions ?Recorded ?Confirmed ?Type aspirin 81 mg tablet,delayed 81 mg PO QDAY 11/17/17 History release (Bert Low Dose Aspirin) clopidogrel 75 mg tablet (Plavix) 75 mg PO QDAY 09/02/24 History metoprolol tartrate 25 mg tablet 50 mg PO BID 11/17/17 09/02/24 History semaglutide 1 mg/dose (4 mg/3 mL) 1 mg subcut QWEEK 09/02/24 History subcutaneous pen injector (Ozempic) oxybutynin chloride 10 mg 10 mg PO HS 09/02/24 5 History tablet,extended release 24 hr sertraline 50 mg tablet 50 mg PO DAILY 09/02/2408/07 History Allergies Allergy/AdvReac Type Severity Reaction Status Date / Time No Known Allergies Allergy Verified 08/22/24 12:58 Visit Medications Acetaminophen (Acetaminophen 325 Mg Tablet) 650 mg PO Q6H PRN PRN Reason: PAIN SCALE 1-3 (mild Stop: 10/01/24 22:19 Last Admin: 09/02/24 11:35 Dose: 650 mg Amlodipine Besylate (Amlodipine Besylate 5 Mg Tablet) 5 mg PO QDAY [facility] Stop: 10/02/24 08:59 Last Admin: 09/02/24 08:58 Dose: 5 mg Aspirin (Aspirin Ec 81 Mg Tabec) 81 mg PO QDAY [facility] Stop: 10/02/24 08:59 Last Admin: 09/03/24 08:36 Dose: 81 mg Bisacodyl (Bisacodyl 10 Mg Supp) [address] QDAY PRN; Protocol PRN Reason: Constipation, patient prefers Stop: 10/02/24 16:22 Dextrose (Dextrose 50%-Water Inj 50 Ml Syringe) 25 ml IV Q15MIN PRN PRN Reason: BG 50-70 responsive npo pt Stop: 10/03/24 11:12 Dextrose (Dextrose 50%-Water Inj 50 Ml Syringe) 50 ml IV Q15MIN PRN PRN Reason: BG <50 OR BG <70 & pt unresponsive Stop: 10/03/24 11:12 Finasteride (Finasteride 5 Mg Tablet) 5 mg PO QDAY [facility] Stop: 10/02/24 08:59 Last Admin: 09/03/24 08:36 Dose: 5 mg Glucagon (Glucagon Inj 1 Mg Vial) 1 mg IM Q15MIN PRN PRN Reason: BG <70, and no IV access Heparin Sodium (Porcine) (Heparin Sod Inj 5000 Unit/Ml Vial) 5,000 unit SC Q12HR [facility] Stop: 09/16/24 08:59 Last Admin: 09/03/24 21:21 Dose: 5,000 unit Vancomycin HCl (Vancomycin/Water 1gm Ivpb) 200 mls @ 120 mls/hr IV QPM@2200 [facility]; Protocol Stop: 09/09/24 21:59 Last Admin: 09/03/24 21:41 Dose: 120 mls/hr Piperacillin/Tazobactam/Dextrose (Zosyn) 3.375 gm in 50 mls @ 12.5 mls/hr IV Q8HR [facility] Stop: 09/09/24 21:59 Last Admin: 09/03/24 21:21 Dose: 12.5 mls/hr Insulin Glargine (Insulin Glargine (Lantus) 5 Unit/0.05 Ml (Per 5 Units)) 15 unit SC [facility] Stop: 10/03/24 20:59 Last Admin: 09/03/24 21:36 Dose: Not Given Insulin Human Lispro (Insulin Lispro (Admelog) 1 Unit/0.01 Ml Unit) 0 unit SC [facility]; Protocol Stop: 10/03/24 11:29 Last Admin: 09/03/24 21:32 Dose: Not Given Ondansetron HCl (Ondansetron Inj 2 Mg/Ml Inj 2 Ml) 4 mg IVP Q6H PRN; Protocol PRN Reason: NAUSEA OR VOMITING Stop: 10/01/24 22:19 Pharmacy Consult (Vancomycin Pharmacy To Dose 1 Each Each) 1 each IV QDAY PRN PRN Reason: PROTOCOL Stop: 10/02/24 08:59 Sennosides (Senna Tablet) 1 tab PO QDAY PRN; Protocol PRN Reason: constipation Stop: 10/01/24 22:19 Sertraline HCl (Sertraline Hcl 25 Mg Tablet) 50 mg PO [facility] Stop: 10/02/24 20:59 Last Admin: 09/03/24 21:21 Dose: 50 mg Discontinued Medications Acetaminophen (Acetaminophen 500 Mg Tablet) 1,000 mg PO X1 ONE Stop: 09/01/24 16:21 Last Admin: 09/01/24 17:56 Dose: 1,000 mg Acetaminophen (Acetaminophen 325 Mg Tablet) 650 mg PO X1 ONE Stop: 09/02/24 11:35 Last Admin: 09/02/24 11:55 Dose: Not Given Bisacodyl (Bisacodyl 10 Mg Supp) [address] QDAY PRN; Protocol PRN Reason: CONSTIPATION Stop: 10/02/24 16:22 Dextrose (Dextrose 50%-Water Inj 50 Ml Syringe) 25 ml IV Q15MIN PRN PRN Reason: BG 50-70 responsive npo pt Stop: 10/01/24 22:22 Dextrose (Dextrose 50%-Water Inj 50 Ml Syringe) 50 ml IV Q15MIN PRN PRN Reason: BG <50 OR BG <70 & pt unresponsive Stop: 10/01/24 22:22 Glucagon (Glucagon Inj 1 Mg Vial) 1 mg IM Q15MIN PRN PRN Reason: BG <70, and no IV access Piperacillin/Tazobactam/Dextrose (Zosyn) 3.375 gm in 50 mls @ 100 mls/hr IV X1 ONE Stop: 09/01/24 16:49 Last Infusion: 09/01/24 18:31 Dose: Infused Sodium Chloride (Ns) 2,052 mls @ 2,052 mls/hr 30 ml/kg infuse over 60 min (2052 ml) IV .Q1H ONE Stop: 09/01/24 17:20 Last Admin: 09/01/24 17:57 Dose: 2,052 mls/hr Vancomycin HCl (Vancomycin/Water 1gm Ivpb) 200 mls @ 120 mls/hr IV X1 ONE Stop: 09/01/24 18:09 Last Infusion: 09/01/24 20:13 Dose: Infused Ceftriaxone Sodium 2 gm/ (Sodium Chloride) 50 mls @ 100 mls/hr IV X1 ONE Stop: 09/01/24 23:14 Last Infusion: 09/02/24 00:10 Dose: Infused Lactated Ringer's (Lactated Ringers) 1,000 mls @ 80 mls/hr IV .[id number] [facility]LEX[facility] Stop: 09/02/24 15:52 Last Admin: 09/02/24 03:53 Dose: 80 mls/hr Ceftriaxone Sodium/Dextrose (Rocephin/D5w 2gm) 2 gm in 50 mls @ 100 mls/hr IV [facility] Stop: 09/08/24 22:21 Lactated Ringer's (Lactated Ringers) 1,000 mls @ 999 mls/hr IV .Q1H1M ONE Stop: 09/02/24 12:35 Last Admin: 09/02/24 11:54 Dose: 999 mls/hr Piperacillin/Tazobactam/Dextrose (Zosyn) 3.375 gm in 50 mls @ 100 mls/hr IV X1 ONE Stop: 09/02/24 12:14 Last Admin: 09/02/24 11:54 Dose: 100 mls/hr Lactated Ringer's (Lactated Ringers) 1,000 mls @ 999 mls/hr IV .Q1H1M ONE Stop: 09/02/24 13:21 Last Admin: 09/02/24 12:57 Dose: 999 mls/hr Lactated Ringer's (Lactated Ringers) 1,000 mls @ 999 mls/hr IV .Q1H1M ONE Stop: 09/02/24 16:51 Last Admin: 09/02/24 16:00 Dose: 999 mls/hr Insulin Glargine (Insulin Glargine (Lantus) 5 Unit/0.05 Ml (Per 5 Units)) 10 unit SC [facility] Stop: 10/02/24 20:59 Last Admin: 09/02/24 20:59 Dose: 10 unit Insulin Human Lispro (Insulin Lispro (Admelog) 1 Unit/0.01 Ml Unit) 0 unit SC [facility]; Protocol Stop: 10/02/24 07:29 Last Admin: 09/03/24 07:54 Dose: 2 unit Insulin Human Regular (Insulin Hum Regular 1 Unit/0.01 Ml (Per Unit)) 5 unit SC X1 ONE Stop: 09/02/24 07:21 Last Admin: 09/02/24 08:58 Dose: 5 unit Potassium Phos/Sodium Phos (Naph,[facility] Mbdb 1 Packet (1.5 Gm)) 1 packet PO X1 ONE Stop: 09/03/24 11:45 Last Admin: 09/03/24 12:39 Dose: 1 packet Assessment & Plan Plan Mr. Marc is a 74-year-old male with past medical history significant for hypertension, uncontrolled type 2 diabetes, diabetic neuropathy hyperlipidemia, PAD, CAD status post bypass graft surgery and stents presented to the ED due to somnolence and generalized weakness. Upon hospitalization patient was also noted to have erythematous and right foot swelling. Cardiology is consulted for cardiac clearance for excisional debridement of the left foot with possible below-knee amputation. #CAD status post PCI -Patient did have a history of stent in the RCA by another security escort and a bypass graft of the LAD prior to 2020 (patient is a bad historian and unable to provide much detailed history regarding this procedure) -Patient underwent left heart cardiac catheterization with Dr. Davison in 2020 and was found to have multivessel disease and was recommended to undergo medical management and angioplasty at possibly stents in the LAD and the distal posterior descending branch of the right coronary artery. - During angiogram in 2020 EF was measured to be 50% with evidence of inferior wall hypokinesis and mild global hypokinesis Plan: - Repeat echocardiogram - Patient may need to follow-up closely with security escort and will possibly need another angiogram at some point - For now patient is clear for surgery of the right foot with possible BKA. #Peripheral artery disease #Hyperlipidemia -Pt has hx of hyperlipidemia and takes atorvastatin 20 mg daily. Patient also has PAD which has complicated his surgical healing in the right foot. 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 Plantar Edema #Eschar of right heel #Leukocytosis #Urinary tract infection #JULIO on CKD, likely secondary to sepsis vs dehydration #Metabolic Acidosis, anion gap, secondary to Lactic Acidosis #Anemia of chronic disease #Hyperglycemia #Type 2 diabetes mellitus on insulin #Diabetic neuropathy -management as per primary team Thank you for the consult and allowing us to participate in the care of the patient. Cardiology will continue to follow. Assessment and plan discussed with my attending Engagement Quality Consultant Dr. Saman Farr (PGY-2)- Internal medicine resident
--- NOTE | 2024-09-03 17:40 | PC.CM ---
Patient is opened to [facility] health. He will need new home health orders if he discharges home.
[2024-09-03] MEDS: SERTRALINE HCL 25 MG TABLET 50 MG PO (21:21)
[2024-09-03] MEDS: VANCOMYCIN/WATER 1GM IVPB 200 ML IV (21:41)
[2024-09-04] VITALS (17 sets, daily range): BP systolic 88–163; BP diastolic 54–84; PULSE 72–94; RESP 13–98; TEMP 36–37.1; O2SAT 94–100
[2024-09-04 04:53] LABS: Basophils # (Auto) 0.0 Thou/mm3 (0.0-0.2); Basophils % (Auto) 0 % (0-2.5); Eosinophils # (Auto) 0.0 Thou/mm3 (0.0-0.5); Eosinophils % (Auto) 0 % (0-10); Hematocrit 26.2 % (41.0-53.0); Hemoglobin 9.0 g/dL (13.5-16.0); Immature Granulocytes Auto 0.61 Thou/mm3 (0.00-0.00); Lymphocytes # (Auto) 2.0 Thou/mm3 (1.0-4.8); Lymphocytes % (Auto) 8 % (10-50); Mean Corpuscular HGB Conc 34.4 g/dl (31.0-37.0); Mean Corpuscular Hemoglobin 30.1 pg (25.0-35.0); Mean Corpuscular Volume 88 fL (80-100); Monocytes # (Auto) 2.2 Thou/mm3 (0.0-0.8); Monocytes % (Auto) 9 % (0-12); Neutrophils # (Auto) 19.9 Thou/mm3 (1.8-7.7); Neutrophils % (Auto) 80 % (37-80); Nucleated Red Blood Cell # 0.00 Thou/mm3 (0.00-0.00); Nucleated Red Blood Cell % 0 /100 WBC (0); Platelet Count 392 Thou/mm3 (140-440); RDW Standard Deviation 48.5 fL (35.1-43.9); Red Blood Count 2.99 Miln/mm3 (4.50-5.90); White Blood Count 24.8 Thou/mm3 (3.8-10.6)
[2024-09-04 05:06] LABS: INR 1.2 (0.9-1.3); Partial Thromboplastin Time 28.8 Seconds (22.0-36.0); Prothrombin Time 12.5 Seconds (9.0-12.2)
[2024-09-04 05:13] LABS: Alanine Aminotransferase 26 U/L (10-49); Albumin, Serum 2.7 gm/dL (3.4-4.8); Albumin/Globulin Ratio 0.9 (1.2-2.2); Alkaline Phosphatase 153 U/L (46-116); Anion Gap 10 (7-16); Aspartate Amino Transferase 17 U/L (0-34); BUN/Creatinine Ratio 20 Ratio (12-20); Bilirubin,Total 0.3 mg/dL (0.3-1.2); Blood Urea Nitrogen 26 mg/dL (9-23); Calcium 8.1 mg/dL (8.3-10.6); Calcium (Corrected) 9.1 mg/dL (8.5-10.1); Carbon Dioxide 22.8 mMol/L (20.0-31.0); Chloride 107 mMol/L (98-107); Creatinine (Component) 1.3 mg/dL (0.6-1.3); Estimated Creatinine Clearance 53.9 mL/min (>60); Globulin 2.9 gm/dL (2.3-3.5); Glucose 196 mg/dL (74-106); Magnesium 1.4 mg/dL (1.6-2.6); Osmolality,Calculated 289 (275-295); Phosphorous 3.0 mg/dL (2.4-5.1); Potassium 4.3 mMol/L (3.4-5.1); Sodium 140 mMol/L (136-145); Total Protein 5.6 gm/dL (5.7-8.2); eGFR 58 See Note
[2024-09-04] MEDS: PIPER/TAZO 3.375 GM PREMIX 3.375 GM/50 ML BAG IV ×3 (05:38→21:39)
[2024-09-04 05:46] LABS: Path Review Blood Smear Sent to Pathologist
--- NOTE | 2024-09-04 08:30 | CHAP ---
Patient was visited by a Spiritual Care Volunteer on 09/03/2024 between 0900 and 1200 and received comfort, encouragement and/or prayer.
--- NOTE | 2024-09-04 09:46 | ESPR_ITS ---
Documentation for date of: 09/04/24 No overnight events. Patient is NPO. Pending I&D with general surgery, schedule later this evening. Continue IV antibioitcs. Infectious disease consulted. Subjective Subjective Interval history: Overnight events: No acute events overnight. Patient was seen and examined at bedside. AM vitals and labs reviewed. Patient had elevated blood pressure overnight to max of 155/83. Urine culture taken 09/01 resulted as gram-negative rods, which is covered by current empiric antibiotic regimen. Cardiology ordered repeat echocardiogram and cleared the patient for surgery. I&D of right foot planned for today by general surgery. Patient was seen before I&D. Patient reports no complaints at this time other than continued pain at his right foot. Patient is able to state his name, where he is at, why he is in the hospital, but is unable to say what the date is. Review of systems otherwise negative except for what is mentioned above. Exam Vital Signs Temp Pulse Resp BP Pulse Ox O2 Del Method O2 Flow Rate 96.8 F 72 18 163/79 H 98 Room Air 1 09/04/24 08:00 09/04/24 09:05 09/04/24 09:05 09/04/24 08:00 09/04/24 08:00 09/04/24 08:00 09/02/24 16:00 Narrative Exam Physical Exam: General: Alert, no acute distress. Skin: Warm, dry, intact, no obvious rash. Head: Normocephalic, atraumatic. Eye: Normal conjunctiva, PERRL. Cardiovascular: Regular rate and rhythm, no murmur, +S1/S2. Respiratory: Lungs are clear to auscultation, respirations unlabored, no crackles, no wheezing. Gastrointestinal: Soft, nontender, non-distended. No guarding or rebound tenderness. Extremities: No edema, no cyanosis, no clubbing. 2+ radial pulse bilaterally, 1+ pedal pulse bilaterally. Right foot wrapped tightly with gauze. Neuro: No focal deficits observed. Conversant, moving all extremities. No overt cerebellar signs/incoordination. Psychiatric: Cooperative, flat affect. Objective Labs 09/04/24 04:37 09/04/24 04:37 Labs: Laboratory Results - last 24 hr 09/04/24 04:37 WBC 24.8 H RBC 2.99 L Hgb 9.0 L Hct 26.2 L MCV 88 MCH 30.1 MCHC 34.4 RDW Std Deviation 48.5 H Plt Count 392 Neut % (Auto) 80 Lymph % (Auto) 8 L [place] % (Auto) 9 Eos % (Auto) 0 Baso % (Auto) 0 Neut # (Auto) 19.9 H Lymph # (Auto) 2.0 [place] # (Auto) 2.2 H Eos # (Auto) 0.0 Baso # (Auto) 0.0 Immature Gran # (Auto) 0.61 H Absolute Nucleated RBC 0.00 Immature Gran % 3 H Nucleated RBC % 0 Smear Path Review Sent to Pathologist PT 12.5 H INR 1.2 APTT 28.8 Sodium 140 Potassium 4.3 Chloride 107 Carbon Dioxide 22.8 Anion Gap 10 BUN 26 H Creatinine 1.3 Estim Creat Clear Calc 53.9 L eGFR 58 L BUN/Creatinine Ratio 20 Glucose 196 H Calculated Osmolality 289 Calcium 8.1 L Corrected Calcium 9.1 Phosphorus 3.0 Magnesium 1.4 L Total Bilirubin 0.3 AST 17 ALT 26 Alkaline Phosphatase 153 H Total Protein 5.6 L Albumin 2.7 L Globulin 2.9 Albumin/Globulin Ratio 0.9 L Quality Measures Quality Measures sepsis Current suspected stage: sepsis Possible source: bone/joint, genitourinary and skin/soft tissue Blood cultures ordered: yes Antibiotic ordered: Yes Advance care planning discussed with:: patient and child Assessment & Plan Assessment Current Active Medications: Generic Name Dose Route Start Last Admin Trade Name Freq PRN Reason Stop Dose Admin Acetaminophen 650 mg 09/01/24 22:20 09/02/24 11:35 Acetaminophen 325 Mg Tablet PO 10/01/24 22:19 650 mg Q6H PRN Administration PAIN SCALE 1-3 (mild Amlodipine Besylate 5 mg 09/02/24 09:00 09/02/24 08:58 Amlodipine Besylate 5 Mg Tablet PO 10/02/24 08:59 5 mg QDAY ALEXIS Administration Aspirin 81 mg 09/02/24 09:00 09/04/24 08:55 Aspirin Ec 81 Mg Tabec PO 10/02/24 08:59 Not Given QDAY ALEXIS Bisacodyl 5 mg 09/02/24 16:24 Bisacodyl 10 Mg Supp CO 10/02/24 16:22 QDAY PRN Constipation, patient prefers Protocol Dextrose 25 ml 07/29/25 11:13 Dextrose 50%-Water Inj 50 Ml Syringe IV 10/03/24 11:12 Q15MIN PRN BG 50-70 responsive npo pt Dextrose 50 ml 09/03/24 11:13 Dextrose 50%-Water Inj 50 Ml Syringe IV 10/03/24 11:12 Q15MIN PRN BG <50 OR BG <70 & pt unresponsive Finasteride 5 mg 09/02/24 09:00 09/04/24 08:55 Finasteride 5 Mg Tablet PO 10/02/24 08:59 Not Given QDAY ALEXIS Glucagon 1 mg 09/03/24 11:13 Glucagon Inj 1 Mg Vial IM Q15MIN PRN BG <70, and no IV access Heparin Sodium (Porcine) 5,000 unit 09/02/24 09:00 09/04/24 08:55 Heparin Sod Inj 5000 Unit/Ml Vial SC 09/16/24 08:59 Not Given Q12HR ALEXIS Vancomycin HCl 200 mls @ 120 mls/hr 09/02/24 22:00 09/03/24 23:25 Vancomycin/Water 1gm Ivpb IV 09/09/24 21:59 Infused QPM@2200 [facility] Infusion Protocol Piperacillin/Tazobactam/Dextrose 3.375 gm in 50 mls @ 12.5 mls/hr 09/02/24 22:00 09/04/24 05:38 Zosyn IV 09/09/24 21:59 12.5 mls/hr Q8HR ALEXIS Administration Insulin Glargine 20 unit 09/04/24 21:00 Insulin Glargine (Lantus) 5 Unit/0.05 Ml (Per 5 Units) SC 10/04/24 20:59 HS [facility] Insulin Human Lispro 0 unit 09/03/24 11:30 09/04/24 07:30 Insulin Lispro (Admelog) 1 Unit/0.01 Ml Unit SC 10/03/24 11:29 Not Given ACHS [facility] Protocol Ondansetron HCl 4 mg 09/01/24 22:20 Ondansetron Inj 2 Mg/Ml Inj 2 Ml IVP 10/01/24 22:19 Q6H PRN NAUSEA OR VOMITING Protocol Pharmacy Consult 1 each 09/02/24 09:00 Vancomycin Pharmacy To Dose 1 Each Each IV 10/02/24 08:59 QDAY PRN PROTOCOL Sennosides 1 tab 09/01/24 22:20 Senna Tablet PO 10/01/24 22:19 QDAY PRN constipation Protocol Sertraline HCl 50 mg 09/02/24 21:00 09/03/24 21:21 Sertraline Hcl 25 Mg Tablet PO 10/02/24 20:59 50 mg HS ALEXIS Administration Plan Mr. aMrc is a 74 year old gentleman with a past history of PAD, HTN, T2DM, HLD, and s/p amputation of right metatarsals who presented to the ED with concerns of generalized weakness and AMS. The patient was admitted for sepsis management due to osteomyelitis of right foot and urinary tract infection. 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 Plantar Edema #Eschar of right heel #Leukocytosis Patient had difficulty healing his right foot after toe amputation to metatarsals about 2 months ago. The poor healing was likely due to the patient's history of peripheral artery disease. The patient presented with fever of 103.8, heart rate 112, and WBC 23.2 in the ED with source of infection (right foot) and evidence of endorgan damage in elevated creatinine. Foot x-ray done in ED showed cortical bone destruction of distal metatarsals in right foot, further suggesting osteomyelitis. Active pus in right foot, black escar of right heel, and erythematous right foot support signs of active infection in patient. qSofa 1 w/ end organ damage JULIO on CKD and lactic acid ? Continue vancomycin [09/02/24--] and piperacillin/tazobactam [09/02/2024--] ? LR x 3 bolus 09/02/2024 ? Blood cultures x 2 drawn 09/01 pending results ? Right foot wound culture 09/01 pending results ? Preliminary results 09/03: Gram-positive cocci [empiric antibiotic coverage: Piperacillin/tazobactam & vancomycin] ? Foot x-ray 09/01 and foot MRI 09/02 support osteomyelitis at transmetatarsal amputation site ? General Surgery Consulted, Dr. Miller, appreciate recommendations ? Cardiology consulted for surgery clearance, appreciate recommendations ? Infectious disease Consulted, Dr. Blankenship, appreciate recommendations #Urinary tract infection Patient had urinalysis performed in ED, which showed WBC 134 with 4+ bacteria, positive urine nitrate, 3+ glucose, and 1+ protein. Due to patient's altered mental status, will monitor and manage with antibiotic treatment. ? Initially managed with ceftriaxone started on 09/01, swap to piperacillin/tazobactam on 09/02 ? Will monitor progression with CBC and daily examinations ? Urine culture taken on 09/01 pending results ? Preliminary results 09/04 gram-negative rods [empiric antibiotic coverage: Piperacillin/tazobactam] #JULIO on CKD, likely secondary to sepsis vs dehydration (resolving) #Metabolic Acidosis, anion gap, secondary to Lactic Acidosis Patient presented with BUN 35, creatinine 1.4, GFR 53. Possible explanations as to why include decreased blood flow due to sepsis from patient's osteomyelitis and/or urinary tract infection or decreased fluid intake due to altered mental status. Patient has slightly decreased bicarb at 19.6 with an anion gap, likely due to elevated lactic acid at 5.3. ? Will monitor with daily renal panel ? Will continue IV hydration with lactated Ringer's ? Will renally dose medication and avoid nephrotoxic medication #Hypertension Patient has a history of hypertension and initial vitals taken in the ED showed blood pressure of 160/80. ? Restarted patient's home lisinopril 40 mg daily further improvement of JULIO noted on 09/04 #Anemia of chronic disease Patient had decreased H&H of 10.3/31.6 with MCV of 90. Iron panel abnormal with iron at 12, UIBC 134, iron saturation 8%, ferritin 726. Plan ? No iron tablets, given concern for sepsis ? Will monitor with daily CBC ? Will transfuse if hemoglobin drops below 7 per protocol #Hyperglycemia #Type 2 diabetes mellitus on insulin #Diabetic neuropathy Patient has reported history of type 2 diabetes mellitus and diabetic neuropathy that likely led to transmetatarsal amputation. Home glargine 20 units, Glipizide, and Januvia. Plan ? Increase glargine to 20 units from 15, continue sliding scale ? Will hold patient's home glipizide & hold patient's home Januvia due to current UTI ? Continue to monitor fasting blood glucose, may require Glargine 20 units. #Hyperlipidemia #History of peripheral artery disease #History of thrombus in RLE Patient was reported to have a history of hyperlipidemia on home atorvastatin 20 mg. Patient's family reports that the patient received surgical care at [facility] in [place], [place] as they have specialists to manage peripheral artery disease in patients who require amputations in the lower extremities. 1+ pedal pulse noted in bilateral lower extremities. Likely a contributor to poor wound healing post transmetatarsal amputation, which likely contributed to infection that led to osteomyelitis. ? Held home atorvastatin 20 mg ? US LE veins 09/02 negative for DVT ? US LE arteries positive for right popliteal monophasic flow and left posterior tibial artery monophasic flow, but left and right ENRRIQUE greater than 0.9 #Hypophosphatemia Patient had phosphorus of 2.1 on 08/25 9 AM labs. ? Ordered potassium phosphate packet [Neutra-Phos] one-time dose ? Will monitor with a.m. phosphorus levels #Thromcytosis Patient has elevated platelet count at 509 on 09/02 likely reactive secondary to acute infection. ? Will monitor with daily CBC #Constipation Patient has bowel movements every few days per family members. Patient responds well to home bisacodyl 5mg PRN. ? Will restart home bisacodyl 5mg PRN #Hypomagnesemia Patient had magnesium of 1.4 on 09/04. ? Ordered magnesium repletion with 2 gm magnesium sulfate IV once and 400 mg magnesium oxide daily DVT Prophylaxis: Heparin GI Prophylaxis: N/A Diet: NPO [place]: Yes Lines: Peripheral IV Antibiotics: Vancomycin & ceftriaxone Code Status: FULL Reason for Hospitalization: Sepsis due to osteomyelitis and UTI Other Barriers to Discharge: Pending debridement from General Surgery Patient plan of care was discussed with the senior resident Dr. Toledo (PGY-2) and attending physician Dr. Rhett Lima, PGY1 Attending Provider Attestation/Addendum I attest that I was physically present for the evaluation, physical examination, lab and imaging review of the patient with the residents. I discussed the case with the residents and agree with the findings and plans of care as documented above. Patient underwent excisional debridement of right TMA stump and heel eschar with expression of pus with general surgery today. Infectious disease following closely, appreciate recommendations. Vitals are stable, lab results show WBC of 24.8, stable hemoglobin. Kidney function also remained stable. Repleted magnesium. Echocardiography showed ejection fraction of 55%, normal left ventricular size and function and grade 1 diastolic dysfunction. Patient was cleared for surgery by cardiology. Preliminary blood culture grew gram-negative rods on both bottles, urine culture grew gram-negative rods. Foot culture grew gram-positive cocci follow-up blood cultures are negative for 48 hours. We will continue with empiric antibiotics and wait for sensitivity. Joel Delaney MD
--- NOTE | 2024-09-04 10:35 | CHAP ---
Spent time with the patient and family and had prayer.
--- NOTE | 2024-09-04 12:06 | ESOP_ITS ---
Date of Procedure 09/04/24 Pre Op Diagnosis Osteomyelitis of right TMA stump with abscess and eschar of heel Post Op Diagnosis Same Procedure Excisional debridement of right TMA stump and heel eschar, expression of pus Findings Fibrinous necrotic tissue at TMA stump, eschar right heel, 10 cc pus at lateral aspect of TMA stump Procedure Description After discussion of risk and benefits with patient and family, patient brought to the OR, anesthesia was induced and he was prepped and draped in usual sterile fashion. After timeout the TMA stump was curettaged and fibrinous/necrotic tissue was removed. There was mild oozing which was controlled with direct pressure and electrocautery. At the lateral aspect of the stump pus was express ed for a total of about 10 cc. The eschar of the heel was removed using a #15 blade scalpel and there was minimal bleeding which was controlled with electrocautery. The TMA stump was copiously irrigated with a Pulsavac and hemostasis was ensured with electrocautery. The stump and heel were covered with Adaptic, fluffs and gauze. Patient was awoken and brought to PACU in stable condition Pathology / specimen None Estimated Blood Loss 10 Surgeon Hollie Miller MD Surgical Staff Operation Date: 09/04/24 11:30 <No data on this case meets the specified criteria>
--- NOTE | 2024-09-04 12:15 | SUR.PHASEI ---
pt received from OR in recovery bay 6. pt asleep but responds to voice, breathing unlabored on room air. v/s stable. pt dressing to right foot cdi. report received from Martin LEYVA and Erin ROACH.
--- NOTE | 2024-09-04 12:50 | SUR.PHASEI ---
pt able to tolerate oral fluids without difficulty swallowing or nausea/vomiting.
--- NOTE | 2024-09-04 13:40 | SUR.PHASEI ---
pt asleep but responds to voice, breathing unlabored on room air. v/s stable. pt dressing to right foot changed, blood noted on bottom of dressing. Dr. Miller called and informed of dressing change, no new orders received at this time. report called to Mamie ROACH. pt will be transferred to room at this time.
[2024-09-04] MEDS: Magnesium Sulfate 2 GM Ivpb 2 GM/50 ML BAG IV (14:36)
--- NOTE | 2024-09-04 15:29 | PC.SS ---
Rounding Note: Patient schedule for OR today. Dr. Miller surgeon. Possible I & D. Patient receiving IV antibiotics.
--- NOTE | 2024-09-04 15:57 | ESPR_ITS ---
<Statement entered by Murali Davison MD - 09/07/24 15:38> I personally examined evaluate the patient from the cardiovascular point of view patient appears to be doing quite well not have any shortness of breath chest pain no anginal symptoms I evaluated the patient with the PGY 2 Dr. Farr agree with the treatment plan recommendation as documented. Documentation for date of: 09/04/24 Subjective Subjective Interval history: pt is seen at bedside, resting comfortably post debridement, Pt tolerated the procedure well. Pt deosnt not have any cardiac complaints, endorses to feeling well. No chest pain, tightness, palpitations or dizziness. vitals are stable with BP of 120/58, pt is saturating on room air, no LE edema is noted. labs are reviewed Hgb is 9.0, Hct 26.2, BG is 196, mag 1.4. Recommend tighter glycemic control. continue antibiotics. Exam Vital Signs Temp Pulse Resp BP Pulse Ox O2 Del Method O2 Flow Rate 97.2 F 87 17 134/74 H 98 Room Air 6 09/04/24 14:22 09/04/24 14:27 09/04/24 14:22 09/04/24 14:27 09/04/24 14:22 09/04/24 14:22 09/04/24 12:30 Narrative Exam GENERAL: A&Ox3 . Awake, Not in acute distress NEURO: no focal neurological deficits HEENT: Atraumatic, Normocephalic. mucous membranes moist. Eyes open, symmetrical, & clear HEART: Normal Heart Sounds LUNGS: Clear to auscultation with no wheezing or crackles. ABDOMEN: soft, non-distended, non-tender, bowel sounds heard, no guarding or rebound tenderness SKIN: No Rash or ecchymoses EXTREMITIES: No edema, tenderness, able to move all 4 extremities, right foot partially amputated and in a bandage, dressing is clean and dry Objective Labs 09/04/24 04:37 09/04/24 04:37 Labs: Laboratory Results - last 24 hr 09/04/24 04:37 WBC 24.8 H RBC 2.99 L Hgb 9.0 L Hct 26.2 L MCV 88 MCH 30.1 MCHC 34.4 RDW Std Deviation 48.5 H Plt Count 392 Neut % (Auto) 80 Lymph % (Auto) 8 L [place] % (Auto) 9 Eos % (Auto) 0 Baso % (Auto) 0 Neut # (Auto) 19.9 H Lymph # (Auto) 2.0 [place] # (Auto) 2.2 H Eos # (Auto) 0.0 Baso # (Auto) 0.0 Immature Gran # (Auto) 0.61 H Absolute Nucleated RBC 0.00 Immature Gran % 3 H Nucleated RBC % 0 Smear Path Review Sent to Pathologist PT 12.5 H INR 1.2 APTT 28.8 Sodium 140 Potassium 4.3 Chloride 107 Carbon Dioxide 22.8 Anion Gap 10 BUN 26 H Creatinine 1.3 Estim Creat Clear Calc 53.9 L eGFR 58 L BUN/Creatinine Ratio 20 Glucose 196 H Calculated Osmolality 289 Calcium 8.1 L Corrected Calcium 9.1 Phosphorus 3.0 Magnesium 1.4 L Total Bilirubin 0.3 AST 17 ALT 26 Alkaline Phosphatase 153 H Total Protein 5.6 L Albumin 2.7 L Globulin 2.9 Albumin/Globulin Ratio 0.9 L Quality Measures Quality Measures sepsis Current suspected stage: ruled out Possible source: bone/joint, genitourinary and skin/soft tissue Blood cultures ordered: yes Antibiotic ordered: No Advance care planning discussed with:: patient Assessment & Plan Assessment Current Active Medications: Generic Name Dose Route Start Last Admin Trade Name Freq PRN Reason Stop Dose Admin Acetaminophen 650 mg 09/01/24 22:20 09/02/24 11:35 Acetaminophen 325 Mg Tablet PO 10/01/24 22:19 650 mg Q6H PRN Administration PAIN SCALE 1-3 (mild Amlodipine Besylate 5 mg 09/02/24 09:00 09/02/24 08:58 Amlodipine Besylate 5 Mg Tablet PO 10/02/24 08:59 5 mg QDAY ALEXIS Administration Aspirin 81 mg 09/02/24 09:00 09/04/24 08:55 Aspirin Ec 81 Mg Tabec PO 10/02/24 08:59 Not Given QDAY ALEXIS Bisacodyl 5 mg 09/02/24 16:24 Bisacodyl 10 Mg Supp [place] 10/02/24 16:22 QDAY PRN Constipation, patient prefers Protocol Dextrose 25 ml 09/03/24 11:13 Dextrose 50%-Water Inj 50 Ml Syringe IV 10/03/24 11:12 Q15MIN PRN BG 50-70 responsive npo pt Dextrose 50 ml 09/03/24 11:13 Dextrose 50%-Water Inj 50 Ml Syringe IV 10/03/24 11:12 Q15MIN PRN BG <50 OR BG <70 & pt unresponsive Finasteride 5 mg 09/02/24 09:00 09/04/24 08:55 Finasteride 5 Mg Tablet PO 10/02/24 08:59 Not Given QDAY ALEXIS Glucagon 1 mg 09/03/24 11:13 Glucagon Inj 1 Mg Vial IM Q15MIN PRN BG <70, and no IV access Heparin Sodium (Porcine) 5,000 unit 09/02/24 09:00 09/04/24 08:55 Heparin Sod Inj 5000 Unit/Ml Vial SC 09/16/24 08:59 Not Given Q12HR [facility] Vancomycin HCl 200 mls @ 120 mls/hr 09/02/24 22:00 09/03/24 23:25 Vancomycin/Water 1gm Ivpb IV 09/09/24 21:59 Infused QPM@2200 [facility] Infusion Protocol Piperacillin/Tazobactam/Dextrose 3.375 gm in 50 mls @ 12.5 mls/hr 09/02/24 22:00 09/04/24 14:37 Zosyn IV 09/09/24 21:59 12.5 mls/hr Q8HR [facility] Administration Insulin Glargine 20 unit 09/04/24 21:00 Insulin Glargine (Lantus) 5 Unit/0.05 Ml (Per 5 Units) SC 10/04/24 20:59 HS [facility] Insulin Human Lispro 0 unit 09/03/24 11:30 09/04/24 14:23 Insulin Lispro (Admelog) 1 Unit/0.01 Ml Unit SC 10/03/24 11:29 Not Given ACHS [facility] Protocol Lisinopril 40 mg 09/05/24 09:00 Lisinopril 20 Mg Tablet PO 10/05/24 08:59 QDAY [facility] Magnesium Oxide 400 mg 09/05/24 09:00 Magnesium Oxide 400 Mg Tablet PO 10/05/24 08:59 QDAY [facility] Ondansetron HCl 4 mg 09/01/24 22:20 Ondansetron Inj 2 Mg/Ml Inj 2 Ml IVP 10/01/24 22:19 Q6H PRN NAUSEA OR VOMITING Protocol Pharmacy Consult 1 each 09/02/24 09:00 Vancomycin Pharmacy To Dose 1 Each Each IV 10/02/24 08:59 QDAY PRN PROTOCOL Sennosides 1 tab 09/01/24 22:20 Senna Tablet PO 10/01/24 22:19 QDAY PRN constipation Protocol Sertraline HCl 50 mg 09/02/24 21:00 09/03/24 21:21 Sertraline Hcl 25 Mg Tablet PO 10/02/24 20:59 50 mg HS ALEXIS Administration Plan Mr. Marc is a 74-year-old male with past medical history significant for hypertension, uncontrolled type 2 diabetes, diabetic neuropathy hyperlipidemia, PAD, CAD status post bypass graft surgery and stents presented to the ED due to somnolence and generalized weakness. Upon hospitalization patient was also noted to have erythematous and right foot swelling. Cardiology is consulted for cardiac clearance for excisional debridement of the left foot with possible below-knee amputation. #CAD status post PCI and bypass #Primary Hypertension -Patient did have a history of stent in the RCA by another mortgage protection specialist and a bypass graft of the LAD prior to 2020 (patient is a bad historian and unable to provide much detailed history regarding this procedure) -Patient underwent left heart cardiac catheterization with Dr. Davison in 2020 and was found to have multivessel disease and was recommended to undergo medical management and angioplasty at possibly stents in the LAD and the distal posterior descending branch of the right coronary artery. - Echo done on 09/03: Normal LV size and function. Estimated EF at 55 %. There is grade I diastolic dysfunction. The RV is normal in size and systolic function. Mild MAC. Trace MR and TR. Aortic valve sclerosis. Plan: -Continue amlodipine ad lisinopril for HTN - Patient will need close follow-up with mortgage protection specialist outpatient and will possibly need another angiogram at some point since he has history of multi- vessel disease #Peripheral artery disease #Hyperlipidemia -Pt has hx of hyperlipidemia and takes atorvastatin 20 mg daily. Patient also has PAD which has complicated his surgical healing in the right foot. 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 Plantar Edema #Eschar of right heel #Leukocytosis #Urinary tract infection #JULIO on CKD, likely secondary to sepsis vs dehydration #Metabolic Acidosis, anion gap, secondary to Lactic Acidosis #Anemia of chronic disease #Hyperglycemia #Type 2 diabetes mellitus on insulin #Diabetic neuropathy -management as per primary team Thank you for the consult and allowing us to participate in the care of the patient. Cardiology will continue to follow. Assessment and plan discussed with my attending Furniture Removalist'S Assistant Dr. Saman Farr (PGY-2)- Internal medicine resident
--- NOTE | 2024-09-04 16:05 | ESPR_ITS ---
Subjective Subjective Interval history: complex case with gpc on cx but gnr on stain and gnr in urine with no sx noted there Exam Vital Signs Temp Pulse Resp BP Pulse Ox O2 Del Method O2 Flow Rate 97.2 F 87 17 134/74 H 98 Room Air 6 09/04/24 14:22 09/04/24 14:27 09/04/24 14:22 09/04/24 14:27 09/04/24 14:22 09/04/24 14:22 09/04/24 12:30 Narrative Exam english only, nice man. fair historian. prior surgery noted. april, it is now august, cx with gpc. stain with gnr. odd. urine cx pos. ua not normal but few to no sx. Objective - Internal Medicine Labs 09/04/24 04:37 09/04/24 04:37 Labs: Laboratory Results - last 24 hr 09/04/24 04:37 WBC 24.8 H RBC 2.99 L Hgb 9.0 L Hct 26.2 L MCV 88 MCH 30.1 MCHC 34.4 RDW Std Deviation 48.5 H Plt Count 392 Neut % (Auto) 80 Lymph % (Auto) 8 L [place] % (Auto) 9 Eos % (Auto) 0 Baso % (Auto) 0 Neut # (Auto) 19.9 H Lymph # (Auto) 2.0 [place] # (Auto) 2.2 H Eos # (Auto) 0.0 Baso # (Auto) 0.0 Immature Gran # (Auto) 0.61 H Absolute Nucleated RBC 0.00 Immature Gran % 3 H Nucleated RBC % 0 Smear Path Review Sent to Pathologist PT 12.5 H INR 1.2 APTT 28.8 Sodium 140 Potassium 4.3 Chloride 107 Carbon Dioxide 22.8 Anion Gap 10 BUN 26 H Creatinine 1.3 Estim Creat Clear Calc 53.9 L eGFR 58 L BUN/Creatinine Ratio 20 Glucose 196 H Calculated Osmolality 289 Calcium 8.1 L Corrected Calcium 9.1 Phosphorus 3.0 Magnesium 1.4 L Total Bilirubin 0.3 AST 17 ALT 26 Alkaline Phosphatase 153 H Total Protein 5.6 L Albumin 2.7 L Globulin 2.9 Albumin/Globulin Ratio 0.9 L Assessment & Plan A&P Narrative leucocytosis hld by meds dm II, htn by meds bph by meds will see again monday as stains and cx are not consistent. current empiric rx noted. Time Spent With Patient Time: Total time spent is greater than 50% in coordination of care (as documented) at patient's floor/unit and/or counseling patient:
[2024-09-04] MEDS: INSULIN LISPRO (AdmeLOG) 1 UNIT/0.01 ML UNIT SC ×2 (17:30→20:34)
--- NOTE | 2024-09-04 17:33 | ESCONSULT_ITS ---
RE: SPEEDY GALLEGO : 1950 DATE OF CONSULTATION: 09/03/2024 REFERRING PHYSICIAN: Dr. Delaney. REASON FOR CONSULTATION: Osteomyelitis of the right foot with an abscess and drainage. Prior surgery on the foot occurred some time ago. PAST MEDICAL HISTORY: His medical problems include diabetes, peripheral vascular disease, hypertension, and hyperlipidemia. He is also known to have some coronary artery disease. PAST SURGICAL HISTORY: Surgeries include coronary artery bypass grafting and prior right transmetatarsal amputation revised at surgery this admit Echocardiogram was negative on the , earlier today as well. RCA duplex on the showed some peripheral vascular disease and a venous Doppler study was done that did not show a DVT. ALLERGIES: THE PATIENT REPORTS NO ALLERGIES. IMMUNIZATIONS: Last tetanus was in 2009. He does take a flu shot every year. He has had 3 COVID vaccines. He is unsure about pneumococcal. FAMILY HISTORY: Family history is positive for diabetes and hypertension. SOCIAL HISTORY: He lives with his who apparently a couple of years ago. He lives alone at this point. He is a nonsmoker and does not recall his work history. He does speak primarily Upper Sorbian. He has not worked for many years. PHYSICAL EXAMINATION: On exam, the patient is alert and cooperative. The right foot is wrapped. Please see imaging studies and other reports for details. Cultures are pending. Gram stain on the showed GPCs or GNRs, but their cultures showing GPCs and the urine culture showing gram-negative rods. Urinalysis is abnormal, but he may have been treated previously as he had Proteus in the foot in April. At that time gram stain show 1+ GPCs. It now shows 2+ gpc with occasional gram neg rods. He has never grown any GPCs. He does not know what prior treatment he may have received. Typically, in this setting, we do not give him long-term IV antibiotics but instead switch him to oral therapy very quickly. That is perfectly acceptable in most cases. ASSESSMENT: Residual osteomyelitis of the right foot. Surgery done earlier today is noted. Normally, patients who have had amputations done in the past are not going to have much trouble with infection, but he has suggested that his diabetic control is not good peripheral vascular disease may be more significant than it is suggested. His white count is high and remains high, which may be the result of an abscess or other factors. RECOMMENDATIONS: He needs to control his diabetes and I will check on him again on Monday, Monday. DT: 16:12:13 TT: 16:56:00 Ref: [id number] - TID: [id number] MTDD
--- NOTE | 2024-09-04 20:28 | PC.NURSE ---
pateints bs is 466. He has been npo for surgery and insulin has been held. He did eat dinner and has lispro and lantus ordered. I notified Dr. Bell and will spot check bs around midnight to see if improved after insulin.
[2024-09-04] MEDS: HEPARIN SOD INJ 5000 UNIT/ML VIAL SC (20:34)
[2024-09-04] MEDS: SERTRALINE HCL 25 MG TABLET 50 MG PO (20:35)
[2024-09-04] MEDS: INSULIN GLARGINE (Lantus) 5 UNIT/0.05 ML (PER 5 UNITS) 20 UNIT SC (20:35)
[2024-09-04 21:47] LABS: Vancomycin,Trough 10.4 mcg/mL (5.0-10.0)
[2024-09-04] MEDS: VANCOMYCIN/WATER 1GM IVPB 200 ML IV (22:22)
[2024-09-05] VITALS (10 sets, daily range): BP systolic 113–166; BP diastolic 57–86; PULSE 61–85; RESP 16–98; TEMP 36.1–36.4; O2SAT 95–100; BMI 28.0
[2024-09-05 04:56] LABS: Basophils # (Auto) 0.0 Thou/mm3 (0.0-0.2); Basophils % (Auto) 0 % (0-2.5); Eosinophils # (Auto) 0.0 Thou/mm3 (0.0-0.5); Eosinophils % (Auto) 0 % (0-10); Hematocrit 27.6 % (41.0-53.0); Hemoglobin 9.1 g/dL (13.5-16.0); Immature Granulocytes Auto 0.41 Thou/mm3 (0.00-0.00); Lymphocytes # (Auto) 0.9 Thou/mm3 (1.0-4.8); Lymphocytes % (Auto) 4 % (10-50); Mean Corpuscular HGB Conc 33.0 g/dl (31.0-37.0); Mean Corpuscular Hemoglobin 29.0 pg (25.0-35.0); Mean Corpuscular Volume 88 fL (80-100); Monocytes # (Auto) 0.7 Thou/mm3 (0.0-0.8); Monocytes % (Auto) 3 % (0-12); Neutrophils # (Auto) 21.5 Thou/mm3 (1.8-7.7); Neutrophils % (Auto) 91 % (37-80); Nucleated Red Blood Cell # 0.00 Thou/mm3 (0.00-0.00); Nucleated Red Blood Cell % 0 /100 WBC (0); Platelet Count 477 Thou/mm3 (140-440); RDW Standard Deviation 49.0 fL (35.1-43.9); Red Blood Count 3.14 Miln/mm3 (4.50-5.90); White Blood Count 23.6 Thou/mm3 (3.8-10.6)
[2024-09-05] MEDS: PIPER/TAZO 3.375 GM PREMIX 3.375 GM/50 ML BAG IV ×3 (05:22→21:56)
[2024-09-05 06:02] LABS: Alanine Aminotransferase 27 U/L (10-49); Albumin, Serum 2.8 gm/dL (3.4-4.8); Albumin/Globulin Ratio 0.9 (1.2-2.2); Alkaline Phosphatase 170 U/L (46-116); Anion Gap 11 (7-16); Aspartate Amino Transferase 16 U/L (0-34); BUN/Creatinine Ratio 23 Ratio (12-20); Bilirubin,Total 0.2 mg/dL (0.3-1.2); Blood Urea Nitrogen 37 mg/dL (9-23); Calcium 8.3 mg/dL (8.3-10.6); Calcium (Corrected) 9.3 mg/dL (8.5-10.1); Carbon Dioxide 21.0 mMol/L (20.0-31.0); Chloride 101 mMol/L (98-107); Creatinine (Component) 1.6 mg/dL (0.6-1.3); Estimated Creatinine Clearance 42.8 mL/min (>60); Globulin 3.1 gm/dL (2.3-3.5); Magnesium 2.0 mg/dL (1.6-2.6); Osmolality,Calculated 301 (275-295); Phosphorous 4.1 mg/dL (2.4-5.1); Potassium 5.2 mMol/L (3.4-5.1); Sodium 133 mMol/L (136-145); Total Protein 5.9 gm/dL (5.7-8.2); eGFR 45 See Note
[2024-09-05 06:08] LABS: Glucose 568 mg/dL (74-106)
[2024-09-05] MEDS: INSULIN HUM REGULAR 1 UNIT/0.01 ML (PER UNIT) 10 UNIT IV ×4 (06:24→18:00)
[2024-09-05] MEDS: INSULIN LISPRO (AdmeLOG) 1 UNIT/0.01 ML UNIT SC ×4 (06:25→21:55)
--- NOTE | 2024-09-05 06:32 | PC.NURSE ---
notified Dr. Gutiérrez that patients bs on labs was critical high. New order for insulin ivp and sc.
[2024-09-05 06:37] LABS: Glucose Estimated Average 192 mg/dL (80-131); Hemoglobin A1C 8.3 % Hgb (4.8-6.0)
--- NOTE | 2024-09-05 07:57 | PC.NURSE ---
blood sugar - 485, dr. marte aware. no new order received.
[2024-09-05] MEDS: ALBUTEROL/IPRATROPIUM (Duoneb) RT SOL 3 ML NEBU INH (08:36)
[2024-09-05] MEDS: HYDROmorphone INJ 2 MG/ML VIAL 0.5 MG IVP (09:09)
[2024-09-05] MEDS: SOD POLYSTYRENE SULFON SUSP 15 GM/60 ML BTL PO (09:17)
--- NOTE | 2024-09-05 09:18 | PD.RESPRO ---
Documentation for date of: 09/05/24 Overnight team contacted given crital lab value of glucose 568. Regular insulin 10 units X 1. No anion gap noted. Hyperkalemia on morning labs, additional 10 units of regular insulin administered, Kaylexlate, and breathing treatment. Repeat renal panel and repeat bedside glucose. Gluometer switched but no change in glucose reading. Repeat Renal Panel 556 at 1 PM. Lispo 6 units, Regular Insulin and 10 units. Total regular insulin units 40. Sliding scale 24 units +6 units. Glargine 20 units BID. Elevated glucose likely secondary to missed insulin doses yesterday, reactive, and recieving outside food per patient history. Contacted pharmacy to confirm no additional source of glucose would cause this change inglucose, none noted, including zosyn in dextrose. Pending wound vac on Monday. Dr. Miller following. Per recommendations, residential. Glargine increated to 40 units Qday. Repeat Renal Panel at 9:00 PM Subjective Subjective Interval history: Overnight events: Patient had blood glucose of 466 overnight. Patient was given 10 units of regular insulin IV. Patient was seen and examined at bedside. AM vitals and labs reviewed. Patient had I&D yesterday.During procedure, fibrinous necrotic tissue was found at TMA stump with 10 cc of pus expressed at lateral aspect of TMA stump. Eschar on right heel was removed. Urine culture resulted E. coli, which is sensitive to patient's current regimen of piperacillin/tazobactam. Right TMA wound culture resulted as micrococcus and related genera. Dr Blankenship will reassess on Wednesday 09/06. Patient was assessed today during wound care session. Patient has no complaints today other than pain in his right foot. Patient's family clarified that the patient takes 10 units of fast acting insulin with meals, 10 units of slow acting at night, and then 20 units of slow acting in the morning. Patient's family member stated that they did not bring outside food for the patient, the patient stated that a friend came to visit him and brought food for him to eat from outside hospital. Review of systems otherwise negative except for what is mentioned above. Exam Vital Signs Temp Pulse Resp BP Pulse Ox O2 Del Method O2 Flow Rate 97.2 F 67 18 113/57 L 95 Room Air 6 09/05/24 12:00 09/05/24 12:00 09/05/24 12:00 09/05/24 12:00 09/05/24 12:00 09/05/24 12:00 09/04/24 12:30 Narrative Exam Physical Exam: General: Alert, no acute distress. Skin: Warm, dry, intact, no obvious rash. Head: Normocephalic, atraumatic. Eye: Normal conjunctiva, PERRL. Cardiovascular: Regular rate and rhythm, no murmur, +S1/S2. Respiratory: Lungs are clear to auscultation, respirations unlabored, no crackles, no wheezing. Gastrointestinal: Soft, nontender, non-distended. No guarding or rebound tenderness. Extremities: No edema, no cyanosis, no clubbing. 2+ radial pulse bilaterally. Right foot TMA stump erythematous with pus expressed from lateral aspect and right heel. Neuro: No focal deficits observed. Conversant, moving all extremities. No overt cerebellar signs/incoordination. Psychiatric: Cooperative, appropriate affect. Objective Labs 09/05/24 04:39 09/05/24 21:06 Labs: Laboratory Results - last 24 hr 09/04/24 09/05/24 21:14 04:39 WBC 23.6 H RBC 3.14 L Hgb 9.1 L Hct 27.6 L MCV 88 MCH 29.0 MCHC 33.0 RDW Std Deviation 49.0 H Plt Count 477 H D Neut % (Auto) 91 H Lymph % (Auto) 4 L [place] % (Auto) 3 Eos % (Auto) 0 Baso % (Auto) 0 Neut # (Auto) 21.5 H Lymph # (Auto) 0.9 L [place] # (Auto) 0.7 Eos # (Auto) 0.0 Baso # (Auto) 0.0 Immature Gran # (Auto) 0.41 H Absolute Nucleated RBC 0.00 Immature Gran % 2 H Nucleated RBC % 0 Sodium 133 L Potassium 5.2 H D Chloride 101 Carbon Dioxide 21.0 Anion Gap 11 BUN 37 H Creatinine 1.6 H Estim Creat Clear Calc 42.8 L eGFR 45 L BUN/Creatinine Ratio 23 H Glucose 568 H* D Estimated Ave Glu mg/dL 192 H Hemoglobin A1c 8.3 H Calculated Osmolality 301 H Calcium 8.3 Corrected Calcium 9.3 Phosphorus 4.1 Magnesium 2.0 Total Bilirubin 0.2 L AST 16 ALT 27 Alkaline Phosphatase 170 H Total Protein 5.9 Albumin 2.8 L Globulin 3.1 Albumin/Globulin Ratio 0.9 L Vancomycin Trough 10.4 H Quality Measures Quality Measures sepsis Current suspected stage: sepsis Possible source: bone/joint, genitourinary and skin/soft tissue Blood cultures ordered: yes Antibiotic ordered: Yes Advance care planning discussed with:: patient and child Assessment & Plan Assessment Current Active Medications: Generic Name Dose Route Start Last Admin Trade Name Freq PRN Reason Stop Dose Admin Acetaminophen 650 mg 09/01/24 22:20 09/02/24 11:35 Acetaminophen 325 Mg Tablet PO 10/01/24 22:19 650 mg Q6H PRN Administration PAIN SCALE 1-3 (mild Amlodipine Besylate 5 mg 09/02/24 09:00 09/05/24 09:29 Amlodipine Besylate 5 Mg Tablet PO 10/02/24 08:59 5 mg QDAY ALEXIS Administration Aspirin 81 mg 09/02/24 09:00 09/05/24 09:29 Aspirin Ec 81 Mg Tabec PO 10/02/24 08:59 81 mg QDAY ALEXIS Administration Bisacodyl 5 mg 09/02/24 16:24 Bisacodyl 10 Mg Supp HI 10/02/24 16:22 QDAY PRN Constipation, patient prefers Protocol Dextrose 25 ml 09/03/24 11:13 Dextrose 50%-Water Inj 50 Ml Syringe IV 10/03/24 11:12 Q15MIN PRN BG 50-70 responsive npo pt Dextrose 50 ml 09/03/24 11:13 Dextrose 50%-Water Inj 50 Ml Syringe IV 10/03/24 11:12 Q15MIN PRN BG <50 OR BG <70 & pt unresponsive Finasteride 5 mg 09/02/24 09:00 09/05/24 09:40 Finasteride 5 Mg Tablet PO 10/02/24 08:59 5 mg QDAY ALEXIS Administration Glucagon 1 mg 09/03/24 11:13 Glucagon Inj 1 Mg Vial IM Q15MIN PRN BG <70, and no IV access Heparin Sodium (Porcine) 5,000 unit 09/02/24 09:00 09/05/24 09:38 Heparin Sod Inj 5000 Unit/Ml Vial SC 09/16/24 08:59 Not Given Q12HR ALEXIS Hydromorphone HCl 0.5 mg 09/04/24 18:42 09/05/24 09:09 Hydromorphone Inj 2 Mg/Ml Vial IVP 09/09/24 18:41 0.5 mg X1 PRN Administration Pain 4-6 Piperacillin/Tazobactam/Dextrose 3.375 gm in 50 mls @ 12.5 mls/hr 09/02/24 22:00 09/05/24 05:22 Zosyn IV 09/09/24 21:59 12.5 mls/hr Q8HR ALEXIS Administration Vancomycin HCl 250 mls @ 120 mls/hr 09/05/24 22:00 Vancomycin/Water 1250 Mg Ivpb IV 09/12/24 21:59 QPM@2200 ALEXIS Sodium Chloride 1,000 mls @ 80 mls/hr 09/05/24 08:21 09/05/24 09:36 Ns IV 09/05/24 20:50 80 mls/hr .[id number] ONE Administration Insulin Glargine 20 unit 09/05/24 09:00 09/05/24 09:30 Insulin Glargine (Lantus) 5 Unit/0.05 Ml (Per 5 Units) SC 10/05/24 08:59 20 unit BID ALEXIS Administration Insulin Human Lispro 0 unit 09/03/24 11:30 09/05/24 12:07 Insulin Lispro (Admelog) 1 Unit/0.01 Ml Unit SC 10/03/24 11:29 6 unit ACHS ALEXIS Administration Protocol Lisinopril 40 mg 09/05/24 09:00 09/05/24 09:28 Lisinopril 20 Mg Tablet PO 10/05/24 08:59 40 mg QDAY ALEXIS Administration Magnesium Oxide 400 mg 09/05/24 09:00 09/05/24 09:28 Magnesium Oxide 400 Mg Tablet PO 10/05/24 08:59 400 mg QDAY ALEXIS Administration Ondansetron HCl 4 mg 09/01/24 22:20 Ondansetron Inj 2 Mg/Ml Inj 2 Ml IVP 10/01/24 22:19 Q6H PRN NAUSEA OR VOMITING Protocol Pharmacy Consult 1 each 09/02/24 09:00 Vancomycin Pharmacy To Dose 1 Each Each IV 10/02/24 08:59 QDAY PRN PROTOCOL Sennosides 1 tab 09/01/24 22:20 09/05/24 05:23 Senna Tablet PO 10/01/24 22:19 1 tab QDAY PRN Administration constipation Protocol Sertraline HCl 50 mg 09/02/24 21:00 09/04/24 20:35 Sertraline Hcl 25 Mg Tablet PO 10/02/24 20:59 50 mg HS ALEXIS Administration Plan Mr. Marc is a 74 year old gentleman with a past history of PAD, HTN, T2DM, HLD, and s/p amputation of right metatarsals who presented to the ED with concerns of generalized weakness and AMS. The patient was admitted for sepsis management due to osteomyelitis of right foot and urinary tract infection. 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 Plantar Edema #Eschar of right heel #Leukocytosis Patient had difficulty healing his right foot after toe amputation to metatarsals about 2 months ago. The poor healing was likely due to the patient's history of peripheral artery disease. The patient presented with fever of 103.8, heart rate 112, and WBC 23.2 in the ED with source of infection (right foot) and evidence of endorgan damage in elevated creatinine. Foot x-ray done in ED showed cortical bone destruction of distal metatarsals in right foot, further suggesting osteomyelitis. Active pus in right foot, black escar of right heel, and erythematous right foot support signs of active infection in patient. qSofa 1 w/ end organ damage JULIO on CKD and lactic acid. Patient had a temperature of 103.8F, HR of 112, RR of 22, and WBC of 23.2 ED prior to admission to [facility]. This satisfies all 4 elements of SIRS criteria. Initially the patient's active source of infection is right TMA stump and UTI, along with lactic acidosis of 5.3 on 09/02/24. This fits criteria of sepsis [SIRS + source + lactic acidosis] but without septic shock due to mostly elevated BP throughout stay. ? Continue vancomycin [09/02/24--] and piperacillin/tazobactam [09/02/2024--] ? LR x 3 bolus 09/02/2024 ? Blood cultures x 2 drawn 09/01 pending results ? Right foot wound culture 09/01 pending results ? Preliminary results 09/03: Gram-positive cocci [empiric antibiotic coverage: Piperacillin/tazobactam & vancomycin] ?Preliminary results 09/05: Micrococcus and related genera ? Foot x-ray 09/01 and foot MRI 09/02 support osteomyelitis at transmetatarsal amputation site ? General Surgery Consulted, Dr. Miller, appreciate recommendations, I&D performed 09/04, planning to hopefully do wound vac hopefully Saturday 09/09 ? Cardiology consulted for surgery clearance, appreciate recommendations ? Infectious disease Consulted, Dr. Blankenship, appreciate recommendations #Urinary tract infection Patient had urinalysis performed in ED, which showed WBC 134 with 4+ bacteria, positive urine nitrate, 3+ glucose, and 1+ protein. Due to patient's altered mental status, will monitor and manage with antibiotic treatment. ? Initially managed with ceftriaxone started on 09/01, swap to piperacillin/tazobactam on 09/02 ? Will monitor progression with CBC and daily examinations ? Urine culture taken on 09/01 pending results ? Preliminary results 09/04 gram-negative rods [empiric antibiotic coverage: Piperacillin/tazobactam] #JULIO on CKD, likely secondary to sepsis vs dehydration (resolving) #Metabolic Acidosis, anion gap, secondary to Lactic Acidosis Patient presented with BUN 35, creatinine 1.4, GFR 53. Possible explanations as to why include decreased blood flow due to sepsis from patient's osteomyelitis and/or urinary tract infection or decreased fluid intake due to altered mental status. Patient has slightly decreased bicarb at 19.6 with an anion gap, likely due to elevated lactic acid at 5.3. ? Will monitor with daily renal panel ? IV hydration with NS due to worsening of renal function 09/05 ? Will renally dose medication and avoid nephrotoxic medication #Hypertension Patient has a history of hypertension and initial vitals taken in the ED showed blood pressure of 160/80. ? Restarted patient's home lisinopril 40 mg daily further improvement of JULIO noted on 09/04 #Anemia of chronic disease Patient had decreased H&H of 10.3/31.6 with MCV of 90. Iron panel abnormal with iron at 12, UIBC 134, iron saturation 8%, ferritin 726. Plan ? No iron tablets, given concern for sepsis ? Will monitor with daily CBC ? Will transfuse if hemoglobin drops below 7 per protocol #Hyperglycemia #Type 2 diabetes mellitus on insulin #Diabetic neuropathy Patient has reported history of type 2 diabetes mellitus and diabetic neuropathy that likely led to transmetatarsal amputation. Home glargine 20 units, Glipizide, and Januvia. Plan ? Increase glargine to 20 units BID from 20 units per day, continue sliding scale ? Will hold patient's home glipizide & hold patient's home Januvia due to current UTI ? Continue to monitor fasting blood glucose, may require additional units of insulin ? 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 Patient's family reports that the patient received surgical care at [facility] in [place], [place] as they have specialists to manage peripheral artery disease in patients who require amputations in the lower extremities. 1+ pedal pulse noted in bilateral lower extremities. Likely a contributor to poor wound healing post transmetatarsal amputation, which likely contributed to infection that led to osteomyelitis. ? Held home atorvastatin 20 mg ? US LE veins 09/02 negative for DVT ? US LE arteries positive for right popliteal monophasic flow and left posterior tibial artery monophasic flow, but left and right ENRRIQUE greater than 0.9 #Hypophosphatemia Patient had phosphorus of 2.1 on 08/25 9 AM labs. ? Ordered potassium phosphate packet [Neutra-Phos] one-time dose 09/03 ? Will monitor with a.m. phosphorus levels #Thromcytosis Patient has elevated platelet count at 509 on 09/02 likely reactive secondary to acute infection. ? Will monitor with daily CBC #Constipation Patient has bowel movements every few days per family members. Patient responds well to home bisacodyl 5mg PRN. ? Will restart home bisacodyl 5mg daily #Hypomagnesemia Patient had magnesium of 1.4 on 09/04. ? Ordered magnesium repletion with 2 gm magnesium sulfate IV once 09/04 and start 400 mg magnesium oxide daily DVT Prophylaxis: Heparin GI Prophylaxis: N/A Diet: NPO [place]: Yes Lines: Peripheral IV Antibiotics: Vancomycin & ceftriaxone Code Status: FULL Reason for Hospitalization: Sepsis due to osteomyelitis and UTI Other Barriers to Discharge: Pending wound vac by General Surgery & [facility] orders Patient plan of care was discussed with the senior resident Dr. Toledo (PGY-2) and attending physician Dr. Rhett Lima, PGY1 Attending Provider Attestation/Addendum I attest that I was physically present for the evaluation, physical examination, lab and imaging review of the patient with the residents. I discussed the case with the residents and agree with the findings and plans of care as documented above. At bedside today, patient states she is feeling better and denies any new complaints. WBC count has been improving. BUN/creatinine noted to be 37/1.6, started on gentle IV hydration. Blood glucose noted to be very high this morning, 568, patient admitted to getting food from outside, received total of 30 units regular insulin IV, Lantus 20 units subcutaneous and lispro as per sliding scales. We will continue to monitor his glucose level and adjust his insulin regimen. Blood culture from 727 grew Bacteroides fragilis, urine culture from the same date grew E. coli, patient currently on vancomycin and Zosyn. Blood culture from 09/02/2024 came back negative for 48 hours. Infectious disease following closely. We will discussed with ID and decide on placement of PICC line tomorrow for long-term IV antibiotics. PT recommended SNF placement for continuation of physical therapy. Joel Delaney MD
[2024-09-05] MEDS: MAGNESIUM OXIDE 400 MG TABLET PO (09:28)
[2024-09-05] MEDS: ASPIRIN EC 81 MG TABEC PO (09:29)
[2024-09-05] MEDS: INSULIN GLARGINE (Lantus) 5 UNIT/0.05 ML (PER 5 UNITS) 20 UNIT SC ×2 (09:30→16:31)
[2024-09-05] MEDS: SODIUM CHLORIDE 0.9% 1000 ML 1,000 ML 80 ML IV (09:36)
--- NOTE | 2024-09-05 09:37 | ESPR_ITS ---
Documentation for date of: 09/05/24 Subjective Subjective Brief History: 74M with HTN, HLD, DMII, TIA, CKD and PAD who initially underwent right great toe amputation April 2024, followed by TMA by Dr. Bravo in [place] 2 months later. Patient had been following with Dr. Bravo however due to insurance issues he is no longer able to see him. Patient has also been seen by Dr. Nobles vascular surgeon. Patient was brought to ER yesterday because his daughter noted he was more weak and that the foot was becoming more red. Patient has noted to have leukocytosis in the 20s, UA with pyuria and x-ray showing osteomyelitis of the amputated metatarsals. He developed tachycardia during this admission, read as atrial fibrillation and he was transferred to telemetry, with heart rate now well- controlled PMH: HLD, HTN, DMII, CKD, CAD, TIA in 2021, PAD, BPH, and depression PSH: Open heart valve replacement in 2008, CABG, R great toe amputation and TMA earlier this year Meds: currently taking ASA 81mg, no other antiplt during this hospitalization Allergies: NKDA SH: Lives with daughter, not ambulatory at the moment Narrative: Pain controlled, WBC remaining in 20s, afebrile, blood sugars have been elevated Exam Vital Signs Temp Pulse Resp BP Pulse Ox O2 Del Method O2 Flow Rate 97.0 F 81 18 116/60 100 Room Air 6 09/05/24 08:00 09/05/24 09:29 09/05/24 08:40 09/05/24 09:29 09/05/24 08:40 09/05/24 04:00 09/04/24 12:30 Constitutional Constitutional: no acute distress Routine Respiratory Exam Respiratory: Present no resp distress Routine Extremities Exam Comments: R TMA stump with beefy red granulation tissue, purulent drainage expressed from lateral aspect, as well as from the plantar surface of the foot Results Results: Laboratory Laboratory results: results reviewed Assessment & Plan Plan 74M with HTN, HLD, DMII, TIA, CKD and PAD who initially underwent right great toe amputation April 2024, followed by TMA by Dr. Bravo in [place] 2 months later, presenting with osteomyelitis of the TMA site as well as an eschar of the heel, s/p excisional debridement and drainage 09/04, gradually recovering Packing to plantar surface and lateral aspect of TMA stump TID for now Will transition to wound vac when purulent output is decreased, hopefully 09/09 PROCEDURES: Procedures Excisional debridement of right TMA stump and heel eschar, expression of pus
[2024-09-05] MEDS: FINASTERIDE 5 MG TABLET PO (09:40)
[2024-09-05 13:32] LABS: Albumin, Serum 2.7 gm/dL (3.4-4.8); Anion Gap 9 (7-16); BUN/Creatinine Ratio 25 Ratio (12-20); Blood Urea Nitrogen 40 mg/dL (9-23); Calcium 8.1 mg/dL (8.3-10.6); Calcium (Corrected) 9.1 mg/dL (8.5-10.1); Carbon Dioxide 20.5 mMol/L (20.0-31.0); Chloride 100 mMol/L (98-107); Creatinine (Component) 1.6 mg/dL (0.6-1.3); Estimated Creatinine Clearance 42.8 mL/min (>60); Osmolality,Calculated 293 (275-295); Phosphorous 3.3 mg/dL (2.4-5.1); Potassium 4.5 mMol/L (3.4-5.1); Sodium 129 mMol/L (136-145); eGFR 45 See Note
[2024-09-05 13:45] LABS: Glucose 556 mg/dL (74-106)
[2024-09-05] MEDS: INSULIN LISPRO (AdmeLOG) 1 UNIT/0.01 ML UNIT 6 UNIT SC (14:03)
--- NOTE | 2024-09-05 15:38 | PC.NURSE ---
rechecked blood sugar-442, called dr. marte and made aware.
--- NOTE | 2024-09-05 16:08 | ESPR_ITS ---
<Statement entered by Murali Davison MD - 09/07/24 15:58> The patient examined evaluated by me personally along with PGY 2 Dr. Farr patient is doing clinically better but still having issues with infection and sepsis with receiving antibiotics patient may require amputation if he does not improve. Clinically cardiac donis is stable evaluated patient with resident physician agree with the treatment plan recommendation as documented Documentation for date of: 09/05/24 Subjective Subjective Interval history: Pt is seen at bedside. he is resting comfortable, does not have any cardiac complaints. vitals are stable, labs are reviewed, WBC 24.8, Hgb 9.0, Hct 26.2, sodium 129, Cr 1.6, GFR 45, BG 568- Pt was started on Lantus 40 units daily along with SSI. Pt is found to have osteomylitis at the stump of his foot where the amuputation was, ID is consulted, pt is currently zosyn and vancomycin. Urine cultures were positive for E. coli and repeat cultures are negative. Cotninue aspirin, amlodipine and lisinopril Exam Vital Signs Temp Pulse Resp BP Pulse Ox O2 Del Method O2 Flow Rate 97.2 F 67 18 113/57 L 95 Room Air 6 09/05/24 12:00 09/05/24 12:00 09/05/24 12:00 09/05/24 12:00 09/05/24 12:00 09/05/24 12:00 09/04/24 12:30 Narrative Exam GENERAL: A&Ox3 . resting comfortable, pleasant and cooperative, Not in acute distress, saturating on room air. NEURO: no focal neurological deficits HEENT: Atraumatic, Normocephalic. mucous membranes moist. Eyes open, symmetrical, & clear HEART: Normal Heart Sounds LUNGS: Clear to auscultation with no wheezing or crackles. ABDOMEN: soft, non-distended, non-tender, bowel sounds heard, no guarding or rebound tenderness SKIN: No Rash or ecchymoses EXTREMITIES: No edema, tenderness, able to move all 4 extremities, right foot partially amputated and in a bandage, dressing is clean and dry Objective Labs 09/05/24 04:39 09/05/24 12:58 Labs: Laboratory Results - last 24 hr 09/04/24 09/05/24 09/05/24 21:14 04:39 12:58 WBC 23.6 H RBC 3.14 L Hgb 9.1 L Hct 27.6 L MCV 88 MCH 29.0 MCHC 33.0 RDW Std Deviation 49.0 H Plt Count 477 H D Neut % (Auto) 91 H Lymph % (Auto) 4 L [place] % (Auto) 3 Eos % (Auto) 0 Baso % (Auto) 0 Neut # (Auto) 21.5 H Lymph # (Auto) 0.9 L [place] # (Auto) 0.7 Eos # (Auto) 0.0 Baso # (Auto) 0.0 Immature Gran # (Auto) 0.41 H Absolute Nucleated RBC 0.00 Immature Gran % 2 H Nucleated RBC % 0 Sodium 133 L 129 L Potassium 5.2 H D 4.5 D Chloride 101 100 Carbon Dioxide 21.0 20.5 Anion Gap 11 9 BUN 37 H 40 H Creatinine 1.6 H 1.6 H Estim Creat Clear Calc 42.8 L 42.8 L eGFR 45 L 45 L BUN/Creatinine Ratio 23 H 25 H Glucose 568 H* D 556 H* Estimated Ave Glu mg/dL 192 H Hemoglobin A1c 8.3 H Calculated Osmolality 301 H 293 Calcium 8.3 8.1 L Corrected Calcium 9.3 9.1 Phosphorus 4.1 3.3 Magnesium 2.0 Total Bilirubin 0.2 L AST 16 ALT 27 Alkaline Phosphatase 170 H Total Protein 5.9 Albumin 2.8 L 2.7 L Globulin 3.1 Albumin/Globulin Ratio 0.9 L Vancomycin Trough 10.4 H Quality Measures Quality Measures sepsis Current suspected stage: ruled out Possible source: bone/joint, genitourinary and skin/soft tissue Blood cultures ordered: yes Antibiotic ordered: Yes Advance care planning discussed with:: patient Assessment & Plan Assessment Current Active Medications: Generic Name Dose Route Start Last Admin Trade Name Freq PRN Reason Stop Dose Admin Acetaminophen 650 mg 09/01/24 22:20 09/02/24 11:35 Acetaminophen 325 Mg Tablet PO 10/01/24 22:19 650 mg Q6H PRN Administration PAIN SCALE 1-3 (mild Amlodipine Besylate 5 mg 09/02/24 09:00 09/05/24 09:29 Amlodipine Besylate 5 Mg Tablet PO 10/02/24 08:59 5 mg QDAY ALEXIS Administration Aspirin 81 mg 09/02/24 09:00 09/05/24 09:29 Aspirin Ec 81 Mg Tabec PO 10/02/24 08:59 81 mg QDAY ALEXIS Administration Bisacodyl 5 mg 09/06/24 09:00 Bisacodyl 5 Mg Tabec PO 10/06/24 08:59 QDAY ALEXIS Protocol Dextrose 25 ml 09/03/24 11:13 Dextrose 50%-Water Inj 50 Ml Syringe IV 10/03/24 11:12 Q15MIN PRN BG 50-70 responsive npo pt Dextrose 50 ml 09/03/24 11:13 Dextrose 50%-Water Inj 50 Ml Syringe IV 10/03/24 11:12 Q15MIN PRN BG <50 OR BG <70 & pt unresponsive Finasteride 5 mg 09/02/24 09:00 09/05/24 09:40 Finasteride 5 Mg Tablet PO 10/02/24 08:59 5 mg QDAY ALEXIS Administration Glucagon 1 mg 09/03/24 11:13 Glucagon Inj 1 Mg Vial IM Q15MIN PRN BG <70, and no IV access Heparin Sodium (Porcine) 5,000 unit 09/02/24 09:00 09/05/24 09:38 Heparin Sod Inj 5000 Unit/Ml Vial SC 09/16/24 08:59 Not Given Q12HR ALEXIS Hydromorphone HCl 0.5 mg 09/04/24 18:42 09/05/24 09:09 Hydromorphone Inj 2 Mg/Ml Vial IVP 09/09/24 18:41 0.5 mg X1 PRN Administration Pain 4-6 Piperacillin/Tazobactam/Dextrose 3.375 gm in 50 mls @ 12.5 mls/hr 09/02/24 22:00 09/05/24 13:43 Zosyn IV 09/09/24 21:59 12.5 mls/hr Q8HR ALEXIS Administration Vancomycin HCl 250 mls @ 120 mls/hr 09/05/24 22:00 Vancomycin/Water 1250 Mg Ivpb IV 09/12/24 21:59 QPM@2200 ALEXIS Sodium Chloride 1,000 mls @ 80 mls/hr 09/05/24 08:21 09/05/24 09:36 Ns IV 09/05/24 20:50 80 mls/hr .[id number] ONE Administration Insulin Glargine 40 unit 09/06/24 09:00 Insulin Glargine (Lantus) 5 Unit/0.05 Ml (Per 5 Units) SC 10/06/24 08:59 QDAY ALEXIS Insulin Human Lispro 0 unit 09/03/24 11:30 09/05/24 12:07 Insulin Lispro (Admelog) 1 Unit/0.01 Ml Unit SC 10/03/24 11:29 6 unit ACHS ALEXIS Administration Protocol Lisinopril 40 mg 09/05/24 09:00 09/05/24 09:28 Lisinopril 20 Mg Tablet PO 10/05/24 08:59 40 mg QDAY ALEXIS Administration Magnesium Oxide 400 mg 09/05/24 09:00 09/05/24 09:28 Magnesium Oxide 400 Mg Tablet PO 10/05/24 08:59 400 mg QDAY ALEXIS Administration Ondansetron HCl 4 mg 09/01/24 22:20 Ondansetron Inj 2 Mg/Ml Inj 2 Ml IVP 10/01/24 22:19 Q6H PRN NAUSEA OR VOMITING Protocol Pharmacy Consult 1 each 09/02/24 09:00 Vancomycin Pharmacy To Dose 1 Each Each IV 10/02/24 08:59 QDAY PRN PROTOCOL Sennosides 1 tab 09/01/24 22:20 09/05/24 05:23 Senna Tablet PO 10/01/24 22:19 1 tab QDAY PRN Administration constipation Protocol Sertraline HCl 50 mg 09/02/24 21:00 09/04/24 20:35 Sertraline Hcl 25 Mg Tablet PO 10/02/24 20:59 50 mg HS ALEXIS Administration Plan Mr. Marc is a 74-year-old male with past medical history significant for hypertension, uncontrolled type 2 diabetes, diabetic neuropathy hyperlipidemia, PAD, CAD status post bypass graft surgery and stents presented to the ED due to somnolence and generalized weakness. Upon hospitalization patient was also noted to have erythematous and right foot swelling. Cardiology is consulted for cardiac clearance for excisional debridement of the left foot with possible below-knee amputation. #CAD status post PCI and bypass #Primary Hypertension -Patient did have a history of stent in the RCA by another counterintelligence analyst and a bypass graft of the LAD prior to 2020 (patient is a bad historian and unable to provide much detailed history regarding this procedure) -Patient underwent left heart cardiac catheterization with Dr. Davison in 2020 and was found to have multivessel disease and was recommended to undergo medical management and angioplasty at possibly stents in the LAD and the distal posterior descending branch of the right coronary artery. - Echo done on 09/03: Normal LV size and function. Estimated EF at 55 %. There is grade I diastolic dysfunction. The RV is normal in size and systolic function. Mild MAC. Trace MR and TR. Aortic valve sclerosis. Plan: -Continue amlodipine ad lisinopril for HTN - Patient will need close follow-up with counterintelligence analyst outpatient and will possibly need another angiogram at some point since he has history of multi- vessel disease #Peripheral artery disease #Hyperlipidemia -Pt has hx of hyperlipidemia and takes atorvastatin 20 mg daily. Patient also has PAD which has complicated his surgical healing in the right foot. 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 Plantar Edema #Eschar of right heel #Leukocytosis #E. Coli Urinary tract infection #JULIO on CKD, likely secondary to sepsis vs dehydration #Metabolic Acidosis, anion gap, secondary to Lactic Acidosis #Anemia of chronic disease #Hyperglycemia #Type 2 diabetes mellitus on insulin #Diabetic neuropathy -management as per primary team Thank you for the consult and allowing us to participate in the care of the patient. Cardiology will continue to follow. Assessment and plan discussed with my attending [employer] Dr. Saman Farr (PGY-2)- Internal medicine resident
[2024-09-05] MEDS: INSULIN HUM REGULAR 1 UNIT/0.01 ML (PER UNIT) 10 UNIT SC (16:29)
[2024-09-05] MEDS: ONDANSETRON INJ 2 MG/ML INJ 2 ML 4 MG IVP (19:05)
--- NOTE | 2024-09-05 19:10 | PC.NURSE ---
patient c/o nausea. zofran given
[2024-09-05 21:48] LABS: Albumin, Serum 3.1 gm/dL (3.4-4.8); Anion Gap 9 (7-16); BUN/Creatinine Ratio 29 Ratio (12-20); Blood Urea Nitrogen 40 mg/dL (9-23); Calcium 9.0 mg/dL (8.3-10.6); Calcium (Corrected) 9.7 mg/dL (8.5-10.1); Carbon Dioxide 21.9 mMol/L (20.0-31.0); Chloride 102 mMol/L (98-107); Creatinine (Component) 1.4 mg/dL (0.6-1.3); Estimated Creatinine Clearance 48.9 mL/min (>60); Glucose 357 mg/dL (74-106); Osmolality,Calculated 290 (275-295); Phosphorous 2.5 mg/dL (2.4-5.1); Potassium 4.2 mMol/L (3.4-5.1); Sodium 133 mMol/L (136-145); eGFR 53 See Note
[2024-09-05] MEDS: HEPARIN SOD INJ 5000 UNIT/ML VIAL SC (21:56)
[2024-09-05] MEDS: SERTRALINE HCL 25 MG TABLET 50 MG PO (21:56)
[2024-09-05] MEDS: VANCOMYCIN/WATER 1250 MG IVPB 250 ML 120 MG IV (21:56)
[2024-09-06] VITALS (12 sets, daily range): BP systolic 115–186; BP diastolic 68–98; PULSE 72–104; RESP 15–98; TEMP 36–36.6; O2SAT 97–98; BMI 28.0; BMI 12.0
--- NOTE | 2024-09-06 01:00 | PC.NURSE ---
At 1249 AM, MD Ascencio was notified regarding the patient experiencing two episodes of vomiting, described as medium in size with bile and food contents. The patient had previously received Zofran at 1905 with no improvement in nausea. was also informed of the patient?s elevated blood pressure of 164/88. In response, the provider prescribed Reglan 10 mg PRN and instructed to call back if the patient vomited again; the patient is also to receive an EKG, Care continued.
[2024-09-06] MEDS: METOCLOPRAMIDE INJ 5 MG/ML VIAL 2 ML 10 MG IVP (02:30)
[2024-09-06] MEDS: PIPER/TAZO 3.375 GM PREMIX 3.375 GM/50 ML BAG IV (05:47)
[2024-09-06] MEDS: ACETAMINOPHEN 325 MG TABLET 650 MG PO (05:50)
[2024-09-06 06:18] LABS: Basophils # (Auto) 0.1 Thou/mm3 (0.0-0.2); Basophils % (Auto) 0 % (0-2.5); Eosinophils # (Auto) 0.0 Thou/mm3 (0.0-0.5); Eosinophils % (Auto) 0 % (0-10); Hematocrit 31.5 % (41.0-53.0); Hemoglobin 10.6 g/dL (13.5-16.0); Immature Granulocytes Auto 0.71 Thou/mm3 (0.00-0.00); Lymphocytes # (Auto) 1.4 Thou/mm3 (1.0-4.8); Lymphocytes % (Auto) 5 % (10-50); Mean Corpuscular HGB Conc 33.7 g/dl (31.0-37.0); Mean Corpuscular Hemoglobin 28.9 pg (25.0-35.0); Mean Corpuscular Volume 86 fL (80-100); Monocytes # (Auto) 1.4 Thou/mm3 (0.0-0.8); Monocytes % (Auto) 5 % (0-12); Neutrophils # (Auto) 27.4 Thou/mm3 (1.8-7.7); Neutrophils % (Auto) 88 % (37-80); Nucleated Red Blood Cell # 0.00 Thou/mm3 (0.00-0.00); Nucleated Red Blood Cell % 0 /100 WBC (0); Platelet Count 682 Thou/mm3 (140-440); RDW Standard Deviation 47.1 fL (35.1-43.9); Red Blood Count 3.67 Miln/mm3 (4.50-5.90); White Blood Count 31.0 Thou/mm3 (3.8-10.6)
--- NOTE | 2024-09-06 06:25 | PC.NURSE ---
At 0532, MD Ascencio was notified due to elevated blood pressure of 186/98 with a heart rate of 78. MD gave orders to administer Amlodipine 5 mg and Lisinopril 40 mg, originally scheduled for 0900, early. Medications given as instructed. Patient tolerated medications well. Care continued.
[2024-09-06 07:10] LABS: Alanine Aminotransferase 30 U/L (10-49); Albumin, Serum 3.1 gm/dL (3.4-4.8); Albumin/Globulin Ratio 0.9 (1.2-2.2); Alkaline Phosphatase 183 U/L (46-116); Anion Gap 16 (7-16); Aspartate Amino Transferase 17 U/L (0-34); BUN/Creatinine Ratio 26 Ratio (12-20); Bilirubin,Total 0.3 mg/dL (0.3-1.2); Blood Urea Nitrogen 36 mg/dL (9-23); Calcium 8.6 mg/dL (8.3-10.6); Calcium (Corrected) 9.3 mg/dL (8.5-10.1); Carbon Dioxide 21.1 mMol/L (20.0-31.0); Chloride 99 mMol/L (98-107); Creatinine (Component) 1.4 mg/dL (0.6-1.3); Estimated Creatinine Clearance 48.9 mL/min (>60); Globulin 3.5 gm/dL (2.3-3.5); Glucose 341 mg/dL (74-106); Magnesium 2.1 mg/dL (1.6-2.6); Osmolality,Calculated 293 (275-295); Phosphorous 2.4 mg/dL (2.4-5.1); Potassium 4.2 mMol/L (3.4-5.1); Sodium 136 mMol/L (136-145); Total Protein 6.6 gm/dL (5.7-8.2); eGFR 53 See Note
[2024-09-06] MEDS: INSULIN LISPRO (AdmeLOG) 1 UNIT/0.01 ML UNIT SC ×3 (07:44→17:42)
[2024-09-06] MEDS: MAGNESIUM OXIDE 400 MG TABLET PO (09:06)
[2024-09-06] MEDS: ASPIRIN EC 81 MG TABEC PO (09:06)
[2024-09-06] MEDS: GLYCERIN, ADULT 1 EA SUPP 1 EACH PR (09:06)
[2024-09-06] MEDS: FINASTERIDE 5 MG TABLET PO (09:06)
[2024-09-06] MEDS: HEPARIN SOD INJ 5000 UNIT/ML VIAL SC ×2 (09:07→22:00)
[2024-09-06] MEDS: INSULIN GLARGINE (Lantus) 5 UNIT/0.05 ML (PER 5 UNITS) 40 UNIT SC (09:07)
--- NOTE | 2024-09-06 09:33 | PC.SS ---
SS update: Patient is pending Dr. Blankenship recommendations. Patient will possibly need a wound vac.
--- NOTE | 2024-09-06 09:40 | ESPR_ITS ---
Subjective Subjective Interval history: received call from Dr. Lima about 8:55 this am. will see soon. see that the daily lab shows a higher wbc. that is known to be a poor marker for infection but is done daily by the hospitalist and resident teams. doing a bad test more often does not make it a better test. bc with anaerobe. that may be why pt has an issue Exam Vital Signs Temp Pulse Resp BP Pulse Ox O2 Del Method O2 Flow Rate 97.8 F 74 17 176/98 H 98 Room Air 6 09/06/24 08:00 09/06/24 08:00 09/06/24 08:00 09/06/24 08:00 09/06/24 08:00 09/06/24 08:00 09/04/24 12:30 Narrative Exam daughter by his side. I apparently see her son for cocci. he is 5 yoa. advised re rx changes and likely here thru weekend as it can be difficult to arrange outpt rx on short notice. Objective - Internal Medicine Labs 09/06/24 04:54 09/06/24 04:54 Labs: Laboratory Results - last 24 hr 09/05/24 09/05/24 09/06/24 12:58 21:06 04:54 WBC 31.0 H D RBC 3.67 L Hgb 10.6 L Hct 31.5 L MCV 86 MCH 28.9 MCHC 33.7 RDW Std Deviation 47.1 H Plt Count 682 H D Neut % (Auto) 88 H Lymph % (Auto) 5 L [place] % (Auto) 5 Eos % (Auto) 0 Baso % (Auto) 0 Neut # (Auto) 27.4 H Lymph # (Auto) 1.4 [place] # (Auto) 1.4 H Eos # (Auto) 0.0 Baso # (Auto) 0.1 Immature Gran # (Auto) 0.71 H Absolute Nucleated RBC 0.00 Immature Gran % 2 H Nucleated RBC % 0 Sodium 129 L 133 L 136 Potassium 4.5 D 4.2 4.2 Chloride 100 102 99 Carbon Dioxide 20.5 21.9 21.1 Anion Gap 9 9 16 BUN 40 H 40 H 36 H Creatinine 1.6 H 1.4 H 1.4 H Estim Creat Clear Calc 42.8 L 48.9 L 48.9 L eGFR 45 L 53 L 53 L BUN/Creatinine Ratio 25 H 29 H 26 H Glucose 556 H* 357 H D 341 H Calculated Osmolality 293 290 293 Calcium 8.1 L 9.0 8.6 Corrected Calcium 9.1 9.7 9.3 Phosphorus 3.3 2.5 2.4 Magnesium 2.1 Total Bilirubin 0.3 AST 17 ALT 30 Alkaline Phosphatase 183 H Total Protein 6.6 Albumin 2.7 L 3.1 L 3.1 L Globulin 3.5 Albumin/Globulin Ratio 0.9 L Assessment & Plan A&P Narrative leucocytosis and presumptive osteomyelitis of rt foot with anaerobic bacteremia noted hld by meds dm II, htn by meds bph by meds will see again monday if he remains in house. changed to doxy and rocephin and flagyl with the doxy and flagyl po. the anaerobe may be the issue. but those are gnr's. odd that the gpc would not grow out. gpc were sen before too. he is likely to be here monday given the usual discharge speed unless he goes to a NH. Time Spent With Patient Time: Total time spent is greater than 50% in coordination of care (as documented) at patient's floor/unit and/or counseling patient:
--- NOTE | 2024-09-06 09:42 | PC.WOUND ---
LUKE[employer]Katerina/[employer] Wound vac for home rental order submitted via [employer]. Requested documents (face sheet, H&P, consults, OP notes, progress notes, imaging, labs, RD and WCC notes) faxed with return receipt. Rental Order Number [id number] [facility] fax [facility] phone [phone]
--- NOTE | 2024-09-06 10:20 | ESPR_ITS ---
<Statement entered by Aida Farr MD - 09/06/24 16:39> Patient seen at bedside. Bowel regimen is added for constipation, patient still complains about pain in his right foot. Patient underwent incision and drainage by Dr. Miller today, and plan is for wound VAC on Monday. Will continue doxycycline PO twice daily and metronidazole 500 mg 3 times daily. Blood glucose is 341 will increase Lantus to 40 units daily and Lantus 20 units at bedtime along with 15 units of lispro AC. Blood pressure is well-controlled with lisinopril 40 mg daily and amlodipine 10 mg daily. Patient was seen and examined by me personally. I have directly supervised and reviewed documentation by the team resident and agree with its findings with the following exceptions/and additional findings. Plan of care was discussed with the attending, Dr. Rhett Farr, PGY-2 Documentation for date of: 09/06/24 Subjective Subjective Interval history: Overnight events: No acute events overnight. BP elevated to 186/98 overnight, patient was given morning amlodipine 5 mg and lisinopril 40 mg earlier. Patient was seen and examined at bedside. AM vitals and labs reviewed. Patient with resting comfortably in bed without any new complaints. Patient notes that his right foot is still painful, but that is not new. Patient has not yet had a bowel movement since hospitalization. Discussed with patient and family about possible discharge on Saturday 09/09 after wound vac placement per general surgery. Also discussed patient's hyperglycemia with the patient's family. Will plan to increase patient's insulin regimen. Patient's family stated that they would like to talk to Dr. Herrera, the patient's PCP, about the patient as they see her rounding in the hospital. Review of systems otherwise negative except for what is mentioned above. Exam Vital Signs Temp Pulse Resp BP Pulse Ox O2 Del Method O2 Flow Rate 97.8 F 74 17 176/98 H 98 Room Air 6 09/06/24 08:00 09/06/24 08:00 09/06/24 08:09/06/24 08:00 09/06/24 08:00 09/06/24 08:00 09/04/24 12:30 Narrative Exam Physical Exam: General: Alert, no acute distress. Skin: Warm, dry, intact, no obvious rash. Head: Normocephalic, atraumatic. Eye: Normal conjunctiva, PERRL. Cardiovascular: Regular rate and rhythm, no murmur, +S1/S2. Respiratory: Lungs are clear to auscultation, respirations unlabored, no crackles, no wheezing. Gastrointestinal: Soft, nontender, non-distended. No guarding or rebound tenderness. Extremities: No edema, no cyanosis, no clubbing. 2+ radial pulse bilaterally. R ight foot wrapped tightly with bandages, no overt bleeding or pus seeping observed on bandages. Neuro: No focal deficits observed. Conversant, moving all extremities. No overt cerebellar signs/incoordination. Psychiatric: Cooperative, appropriate affect. Objective Labs 09/07/24 05:05 09/07/24 05:05 Labs: Laboratory Results - last 24 hr 09/05/24 09/05/24 09/06/24 12:58 21:06 04:54 WBC 31.0 H D RBC 3.67 L Hgb 10.6 L Hct 31.5 L MCV 86 MCH 28.9 MCHC 33.7 RDW Std Deviation 47.1 H Plt Count 682 H D Neut % (Auto) 88 H Lymph % (Auto) 5 L Warrick % (Auto) 5 Eos % (Auto) 0 Baso % (Auto) 0 Neut # (Auto) 27.4 H Lymph # (Auto) 1.4 Warrick # (Auto) 1.4 H Eos # (Auto) 0.0 Baso # (Auto) 0.1 Immature Gran # (Auto) 0.71 H Absolute Nucleated RBC 0.00 Immature Gran % 2 H Nucleated RBC % 0 Sodium 129 L 133 L 136 Potassium 4.5 D 4.2 4.2 Chloride 100 102 99 Carbon Dioxide 20.5 21.9 21.1 Anion Gap 9 9 16 BUN 40 H 40 H 36 H Creatinine 1.6 H 1.4 H 1.4 H Estim Creat Clear Calc 42.8 L 48.9 L 48.9 L eGFR 45 L 53 L 53 L BUN/Creatinine Ratio 25 H 29 H 26 H Glucose 556 H* 357 H D 341 H Calculated Osmolality 293 290 293 Calcium 8.1 L 9.0 8.6 Corrected Calcium 9.1 9.7 9.3 Phosphorus 3.3 2.5 2.4 Magnesium 2.1 Total Bilirubin 0.3 AST 17 ALT 30 Alkaline Phosphatase 183 H Total Protein 6.6 Albumin 2.7 L 3.1 L 3.1 L Globulin 3.5 Albumin/Globulin Ratio 0.9 L Quality Measures Quality Measures sepsis Current suspected stage: sepsis Possible source: bone/joint, genitourinary and skin/soft tissue Blood cultures ordered: yes Antibiotic ordered: Yes Advance care planning discussed with:: patient and child Assessment & Plan Assessment Current Active Medications: Generic Name Dose Route Start Last Admin Trade Name Freq PRN Reason Stop Dose Admin Acetaminophen 650 mg 09/01/24 22:20 09/06/24 05:50 Acetaminophen 325 Mg Tablet PO 10/01/24 22:19 650 mg Q6H PRN Administration PAIN SCALE 1-3 (mild Amlodipine Besylate 5 mg 09/02/24 09:00 09/06/24 05:50 Amlodipine Besylate 5 Mg Tablet PO 10/02/24 08:59 5 mg QDAY ALEXIS Administration Aspirin 81 mg 09/02/24 09:00 09/06/24 09:06 Aspirin Ec 81 Mg Tabec PO 10/02/24 08:59 81 mg QDAY ALEXIS Administration Bisacodyl 5 mg 09/06/24 09:00 09/06/24 09:06 Bisacodyl 5 Mg Tabec PO 10/06/24 08:59 5 mg QDAY ALEXIS Administration Protocol Bisacodyl 10 mg 09/05/24 22:02 09/05/24 22:29 Bisacodyl 10 Mg Supp IN 10/05/24 21:43 10 mg QDAY PRN Administration Constipation Protocol Dextrose 25 ml 09/03/24 11:13 Dextrose 50%-Water Inj 50 Ml Syringe IV 10/03/24 11:12 Q15MIN PRN BG 50-70 responsive npo pt Dextrose 50 ml 09/03/24 11:13 Dextrose 50%-Water Inj 50 Ml Syringe IV 10/03/24 11:12 Q15MIN PRN BG <50 OR BG <70 & pt unresponsive Finasteride 5 mg 09/02/24 09:00 09/06/24 09:06 Finasteride 5 Mg Tablet PO 10/02/24 08:59 5 mg QDAY ALEXIS Administration Glucagon 1 mg 09/03/24 11:13 Glucagon Inj 1 Mg Vial IM Q15MIN PRN BG <70, and no IV access Heparin Sodium (Porcine) 5,000 unit 09/02/24 09:00 09/06/24 09:07 Heparin Sod Inj 5000 Unit/Ml Vial SC 09/16/24 08:59 5,000 unit Q12HR ALEXIS Administration Hydromorphone HCl 0.5 mg 09/04/24 18:42 09/05/24 09:09 Hydromorphone Inj 2 Mg/Ml Vial IVP 09/09/24 18:41 0.5 mg X1 PRN Administration Pain 4-6 Piperacillin/Tazobactam/Dextrose 3.375 gm in 50 mls @ 12.5 mls/hr 09/02/24 22:00 09/06/24 05:47 Zosyn IV 09/09/24 21:59 12.5 mls/hr Q8HR ALEXIS Administration Vancomycin HCl 250 mls @ 120 mls/hr 09/05/24 22:00 09/06/24 03:21 Vancomycin/Water 1250 Mg Ivpb IV 09/12/24 21:59 Infused QPM@2200 ALEXIS Infusion Insulin Glargine 40 unit 09/06/24 09:00 09/06/24 09:07 Insulin Glargine (Lantus) 5 Unit/0.05 Ml (Per 5 Units) SC 10/06/24 08:59 40 unit QDAY ALEXIS Administration Insulin Human Lispro 0 unit 09/03/24 11:30 09/06/24 07:44 Insulin Lispro (Admelog) 1 Unit/0.01 Ml Unit SC 10/03/24 11:29 6 unit ACHS ALEXIS Administration Protocol Lisinopril 40 mg 09/05/24 09:00 09/06/24 05:51 Lisinopril 20 Mg Tablet PO 10/05/24 08:59 40 mg QDAY ALEXIS Administration Magnesium Oxide 400 mg 09/05/24 09:00 09/06/24 09:06 Magnesium Oxide 400 Mg Tablet PO 10/05/24 08:59 400 mg QDAY ALEXIS Administration Metoclopramide HCl 10 mg 09/06/24 00:50 09/06/24 02:30 Metoclopramide Inj 5 Mg/Ml Vial 2 Ml IVP 10/06/24 00:49 10 mg Q8HR PRN Administration NAUSEA OR VOMITING Protocol Pharmacy Consult 1 each 09/02/24 09:00 Vancomycin Pharmacy To Dose 1 Each Each IV 10/02/24 08:59 QDAY PRN PROTOCOL Sennosides 1 tab 09/01/24 22:20 09/05/24 05:23 Senna Tablet PO 10/01/24 22:19 1 tab QDAY PRN Administration constipation Protocol Sertraline HCl 50 mg 09/02/24 21:00 09/05/24 21:56 Sertraline Hcl 25 Mg Tablet PO 10/02/24 20:59 50 mg HS ALEXIS Administration Plan Mr. Marc is a 74 year old gentleman with a past history of PAD, HTN, T2DM, HLD, and s/p amputation of right metatarsals who presented to the ED with concerns of generalized weakness and AMS. The patient was admitted for sepsis management due to osteomyelitis of right foot and urinary tract infection. 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 Plantar Edema #Eschar of right heel #Leukocytosis Patient had difficulty healing his right foot after toe amputation to metatarsals about 2 months ago. The poor healing was likely due to the patient's history of peripheral artery disease. The patient presented with fever of 103.8, heart rate 112, and WBC 23.2 in the ED with source of infection (right foot) and evidence of endorgan damage in elevated creatinine. Foot x-ray done in ED showed cortical bone destruction of distal metatarsals in right foot, further suggesting osteomyelitis. Active pus in right foot, black escar of right heel, and erythematous right foot support signs of active infection in patient. qSofa 1 w/ end organ damage JULIO on CKD and lactic acid. Patient had a temperature of 103.8F, HR of 112, RR of 22, and WBC of 23.2 ED prior to admission to [facility]. This satisfies all 4 elements of SIRS criteria. Initially the patient's active source of infection is right TMA stump and UTI, along with lactic acidosis of 5.3 on 09/02/24. This fits criteria of sepsis [SIRS + source + lactic acidosis] but without septic shock due to mostly elevated BP throughout stay. ? Stopped vancomycin [09/02/24-09/06/24] and piperacillin/tazobactam [09/02/24- 09/06/24] ? Blood cultures x 2 drawn 09/01; no growth after 48 hrs 09/06 ? Right foot wound culture 09/01 pending results ? Preliminary results 09/03: Gram-positive cocci [empiric antibiotic coverage: Piperacillin/tazobactam & vancomycin] ? Results 09/05: Micrococcus and related genera ? Foot x-ray 09/01 and foot MRI 09/02 support osteomyelitis at transmetatarsal amputation site ? General Surgery Consulted, Dr. Miller, appreciate recommendations, I&D performed 09/04, planning to hopefully do wound vac hopefully Saturday 09/09 ? Cardiology consulted for surgery clearance, appreciate recommendations ? Infectious disease Consulted, Dr. Blankenship, appreciate recommendations ? ID recommends treatment through 10/17 with p.o. Flagyl 500mg TID, p.o. doxycycline 100mg BID, and IV Rocephin 2gm daily. ? Ordered ESR and CRP 09/06 for uptrending WBC #Urinary tract infection Patient had urinalysis performed in ED, which showed WBC 134 with 4+ bacteria, positive urine nitrate, 3+ glucose, and 1+ protein. Due to patient's altered mental status, will monitor and manage with antibiotic treatment. ? Initially managed with ceftriaxone started on 09/01, swap to piperacillin/tazobactam on 09/02, stopped piperacillin/tazobactam 09/06 ? Will monitor progression with CBC and daily examinations ? Urine culture taken on 09/01 shows E. coli, management w/ Rocephin per ID recommendations #JULIO on CKD, likely secondary to sepsis vs dehydration (resolving) #Metabolic Acidosis, anion gap, secondary to Lactic Acidosis Patient presented with BUN 35, creatinine 1.4, GFR 53. Possible explanations as to why include decreased blood flow due to sepsis from patient's osteomyelitis and/or urinary tract infection or decreased fluid intake due to altered mental status. Patient has slightly decreased bicarb at 19.6 with an anion gap, likely due to elevated lactic acid at 5.3. ? Will monitor with daily renal panel ? IV hydration with NS due to worsening of renal function 09/05 ? Will renally dose medication and avoid nephrotoxic medication ? Consulted nephrology, appreciate recommendations #Hypertension Patient has a history of hypertension and initial vitals taken in the ED showed blood pressure of 160/80. ? Restarted patient's home lisinopril 40 mg daily further improvement of JULIO noted on 09/04 ? Increased amlodipine to 10 mg daily #Anemia of chronic disease Patient had decreased H&H of 10.3/31.6 with MCV of 90. Iron panel abnormal with iron at 12, UIBC 134, iron saturation 8%, ferritin 726. Plan ? No iron tablets, given concern for sepsis ? Will monitor with daily CBC ? Will transfuse if hemoglobin drops below 7 per protocol #Hyperglycemia #Type 2 diabetes mellitus on insulin #Diabetic neuropathy Patient has reported history of type 2 diabetes mellitus and diabetic neuropathy that likely led to transmetatarsal amputation. Home glargine 20 units, Glipizide, and Januvia. Plan ? Increase glargine to 40 units in the morning and 20 units at night; added additional lantus 15 units with meals; continue with sliding scale ? Will hold patient's home glipizide & hold patient's home Januvia ? Continue to monitor fasting blood glucose, may require additional units of insulin ? 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 Patient's family reports that the patient received surgical care at [facility] in [place], [place] as they have specialists to manage peripheral artery disease in patients who require amputations in the lower extremities. 1+ pedal pulse noted in bilateral lower extremities. Likely a contributor to poor wound healing post transmetatarsal amputation, which likely contributed to infection that led to osteomyelitis. ? Held home atorvastatin 20 mg ? US LE veins 09/02 negative for DVT ? US LE arteries positive for right popliteal monophasic flow and left posterior tibial artery monophasic flow, but left and right ENRRIQUE greater than 0.9 #Hypophosphatemia Patient had phosphorus of 2.1 on 08/25 9 AM labs. ? Ordered potassium phosphate packet [Neutra-Phos] one-time dose 09/03 ? Will monitor with a.m. phosphorus levels #Thromcytosis Patient has elevated platelet count at 509 on 09/02 likely reactive secondary to acute infection. ? Will monitor with daily CBC #Constipation Patient has bowel movements every few days per family members. Patient responds well to home bisacodyl 5mg PRN. ? Restarted home bisacodyl 5mg daily ? Ordered docusate 100 mg, senna/docusate tablet, warm water enema, and glycerin suppository one-time doses to encourage bowel movement #Hypomagnesemia Patient had magnesium of 1.4 on 09/04. ? Ordered magnesium repletion with 2 gm magnesium sulfate IV once 09/04 and start 400 mg magnesium oxide daily DVT Prophylaxis: Heparin GI Prophylaxis: N/A Diet: NPO [place]: Yes Lines: Peripheral IV Antibiotics: Doxycycline, ceftriaxone, metronidazole Code Status: FULL Reason for Hospitalization: Sepsis due to osteomyelitis and UTI Other Barriers to Discharge: Pending wound vac by General Surgery & [facility] and home orders Patient plan of care was discussed with the senior resident Dr. Farr (PGY-3) and attending physician Dr. Rhett Lima, PGY1 Attending Provider Attestation/Addendum I attest that I was physically present for the evaluation, physical examination, lab and imaging review of the patient with the residents. I discussed the case with the residents and agree with the findings and plans of care as documented above. At bedside today, patient states she is feeling well and denies any new complaints. Denies any pain on his right foot. Underwent incision and drainage by general surgery today, 10 cc of pus were expressed. Patient is planned for wound VAC placement on Monday. Infectious disease on board, recommended to change antibiotics to p.o. doxycycline, p.o. metronidazole and IV Rocephin, appreciate recommendations. Blood glucose remains high, we will switch his Lantus to 40 mg in the morning and 20 in the evening along with 15 mg during meals. We will also continue with sliding scale. Nephrology following closely for JULIO, will continue with IV hydration, appreciate recommendations. We will increase his amlodipine to 10 mg daily and continue lisinopril 40 for blood pressure. We will also continue to monitor and replete electrolytes as needed. Patient's blood culture, urine culture and foot culture grew different bacteria's, blood culture and urine culture from 09/02 are negative for more than 48 hours. Patient may need PICC line placement for continuation of IV Rocephin. Joel Delaney MD
[2024-09-06] MEDS: DOCUSATE SOD 100 MG CAPSULE PO (11:01)
--- NOTE | 2024-09-06 11:22 | PD.ADDPROG ---
Addendum Progress Note Addendum Date of report being addended: 09/06/24 Narrative: rx thru 10/17 at this point with the po flagyl. po doxy and iv rocephin. please do weekly cbc, renal panel and esr with rx and remove any line prior to release. anaerobes usually clear fast, so no over need to repeat bc, note that zosyn was a good anaerobic agent and he was on that from admit
[2024-09-06] MEDS: INSULIN LISPRO (AdmeLOG) 1 UNIT/0.01 ML UNIT 15 UNIT SC ×2 (12:05→17:41)
[2024-09-06] MEDS: cefTRIAXone/D5w 2gm 2 GM/50 ML BAG IV (12:31)
--- NOTE | 2024-09-06 14:23 | PD.NEPHCONS ---
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 Marc is a 74-year-old man with significant past medical history of longstanding hypertension, uncontrolled diabetes mellitus x years, dyslipidemia, diabetic neuropathy//CKD III- under my care, diabetic retinopathy, diabetic foot wound since early 2024- ( rt toe amputation, subsequently right metatarsal amputation-under wound care center with hyperbaric oxygen) no improvement presented to the emergency department with worsening of the wound on the right foot brought by the daughter. Denies fever, shortness of breath, nausea, vomiting, palpitations, or diarrhea. In the hospital patient was seen by Dr. Miller who did I&D with the purulent drainage. Blood sugars have been significantly elevated between 200-500 despite giving insulin and high doses. Patient on a consistent carb low diet. Medications and labs have been reviewed. Renal consultation requested for JULIO on CKD in the setting of poorly controlled diabetes. Past medical history: Hypertension, diabetes mellitus, dyslipidemia, diabetic neuropathy, diabetic retinopathy Past surgical history: CABG Social history: Denies smoking, alcohol, other illicit drug abuse 09/06/2024 WBC 31, hemoglobin 10.6, platelets 682. Sodium 136, potassium 4.2, BUN 36, creatinine 1.4, blood sugar 341, calcium 9.3, phosphorus 2.4, magnesium 2.1, LFTs normal, albumin 3.1, urinalysis shows significant proteinuria and glucosuria. Echocardiogram showed ejection fraction 55% peripheral arterial Doppler showed severe peripheral vascular disease. Venous Doppler showed no DVT in both legs foot MRI showed questionable early osteomyelitis. cc:: cc: Joel Delaney MD Review of Systems Review of Systems Narrative Review of Systems: CONSTITUTIONAL: Patient denies any fever, chills. HEENT: Denies any visual disturbances or hearing problems. CARDIOVASCULAR: Patient denies any chest pain, shortness of breath, swelling in the lower extremities. PULMONARY: Patient denies any shortness of breath, cough. GASTROINTESTINAL: Patient denies any abdominal pain, constipation, nausea, vomiting, diarrhea. GENITOURINARY: Patient denies any urinary symptoms of burning or frequency or hematuria, denies any form in the urine. SKIN: Right foot metatarsal amputation with the infected stump MUSCULOSKELETAL: Gait imbalance NEUROLOGICAL: Denies any neurological problems of strokes, seizures or confusion. Denies any memory problems. PSYCHIATRIC: Admits some sadness Past Medical History Past Medical History NEUROLOGIC: Positive Transient Ischemic Attacks (TIA); Negative Neurological Disorders, Cerebrovascular Accident, Dementia, Alzheimer's Disease, Parkinson's Disease, Brain Tumor, Meningitis, Seizures, Epilepsy, Multiple Sclerosis, Cerebral Palsy, Amyotrophic Lateral Sclerosis (ALS/Yara Gehrig's), Guillain-Glenwood Syndrome, Spina Bifida, Paralysis, Peripheral Neuropathy, Baptiste's Palsy, Subdural Hematoma, Migraine, Head Trauma, Spinal Cord Injury or Traumatic Brain Injury CARDIAC: Positive Cardiac Disorders, Coronary Artery Disease, Hypercholesterolemia, Congestive Heart Failure and Hypertension; Negative Myocardial Infarction, Cardiac Arrhythmia, Atrial Fibrillation, Angina, Heart Murmur, Atherosclerotic Heart Disease, Peripheral Vascular Disease, Aneurysm, Congenital Heart Disease, Valvular Heart Disease, Rheumatic Fever, Cardiomyopathy, Edema, Pericarditis, Cellulitis, Deep Vein Thrombosis, Hypotension or Varicose Veins RESPIRATORY: Positive Respiratory Disorders (); Negative Chronic Obstructive Pulmonary Disease (COPD), Asthma, Bronchitis, Emphysema, Pneumonia, Pulmonary Fibrosis, Cystic Fibrosis, Tuberculosis, Pulmonary Embolism, Pulmonary Edema or Sleep Apnea GASTROINTESTINAL: Positive Obesity; Negative Gastrointestinal Disorders, Hepatitis, Cirrhosis, Pancreatitis, Celiac Disease, Gall Bladder Disease, Gastrointestinal Bleed, Esophageal Varices, Rouse's Esophagus, Colitis, Ulcerative Colitis, Diverticulitis, Diverticulosis, Ulcer, Colorectal Cancer, Irritable Bowel, Crohn's Disease, Obstructive Bowel, Hiatal Hernia, Hemorrhoids or Gastroesophageal Reflux Disease GENITOURINARY: Positive Chronic Kidney Disease; Negative Genitourinary Disorders, Renal Disease, Kidney Stones, Polycystic Kidney Disease, Neurogenic Bladder, Inguinal Hernia, Dialysis, Prostate Cancer or Benign Prostatic Hyperplasia REPRODUCTIVE: Negative Genital Herpes, Gonorrhea, Syphilis or Testicular Cancer MUSCULOSKELETAL: Positive Arthritis; Negative Musculoskeletal Disorders, Muscular Dystrophy, Myasthenia Gravis, Marfan's Syndrome, Bone Cancer, Rheumatoid Arthritis, Osteoporosis, Degenerative Disk Disease, Gout, Scoliosis, Carpal Tunnel Syndrome, Fibromyalgia, Fractures, Degenerative Joint Disease, Osteomyelitis or Poliovirus ENT: Negative Cataracts, Glaucoma, Blind, Retinal Detachment, Macular Degeneration, Ear Infection, Deafness, Head Trauma or Eye Prosthesis ENDOCRINE: Positive Endocrine Disorders, Diabetes Mellitus Type 2 and Parathyroid Disease; Negative Diabetes Mellitus Type 1, Hypoglycemia, Rockford's Syndrome, Dylan's Disease, Hyperthyroidism, Hypothyroidism, Pituitary Disease, Systemic Lupus Erythematosus, Syndrome of Inappropriate Antidiuretic Hormone (SIADH), Adrenal Disease or Graves' Disease HEMATOLOGIC: Negative Blood Disorders, Anemia, Leukemia, Hemophilia, Thalassemia, Sickle Cell Disease or Clotting Problems PSYCHO/SOCIAL: Negative Psychiatric Problems, Schizophrenia, Recreational Drug Use, Bipolar Disorder, Depression, Anxiety, Behavior Problems, Self-Mutilation, Attention Deficit Disorder, Attention Deficit Hyperactivity Disorder, Depression, Post Traumatic Stress Disorder or Eating Disorder OTHER HISTORY: Positive Hospitalization and Falls; Negative Autoimmune Disease, Down Syndrome, Autism, Developmental Delay, Shingles, Blood Transfusions, Blood Transfusion Reaction, Anesthesia Reactions, Organ Transplant, Chemotherapy, Radiation Therapy, Hyperbaric Therapy, MRSA, VRSA, Vancomycin-Resistant Enterococci, Human Immunodeficiency Virus (HIV), Chicken Pox, Measles, Mumps, Rubella (Czech Measles), Pertussis, Clostridium Difficile, Cancer, Colorectal Cancer, Lung Cancer, Prostate Cancer or Testicular Cancer Family History FAMILY HISTORY: Positive Family Respiratory Disorders and Family Cardiac Disorders; Negative Family Psychiatric Problems, Family Gastrointestinal Problems, Family Cancer, Family Surgery or Family Anesthesia Reaction Surgical History SURGICAL: Positive Cardiac Surgery, Open Heart Surgery, Coronary Artery Bypass Graft, Coronary Stent, Cardiac Catheterization, Angiogram and Amputation (all toes r foot, r 2nd finger tip); Negative Valve Replacement, Vascular Surgery, Pacemaker, Auto Implanted Cardiovert Defib, Carotid Endarterectomy, Endocrine Surgery, Thyroidectomy, Ear Surgery, Tympanostomy Tube, Eye Surgery, Nose Surgery, Oral Surgery, Tonsillectomy, Adenoidectomy, Cochlear Implant, Corneal Transplant, Throat Surgery, Abdominal Surgery, Tracheostomy, Gastric Bypass Surgery, Gastrostomy, Bowel Surgery, Nephrectomy, Transurethral Resection, Joint Replacement, Open Reduction Internal Fixation, Arthroscopy, Neurologic Surgery, Brain Shunt, Vasectomy or Organ Transplant Social History SMOKING STATUS: Never smoker SUBSTANCE USE: does not use Past Medical History Comments PMH COMMENT: PMH: T2DM, HLD, HTN, CKD, CAD, TIA (2021), PAD, BPH, and depression PSH: open heart valve replacement in 2008, CABG, and big toe amputation (05/05/2024) Medications: sertraline, oxybutynin, others not brought by daughter Allergies: none FH: both parents have history of T2DM and [place], mom had Parkinson's SH: lives in a house in [place] w/ daughter, daughter's , and their two kids, no history of drinking alcohol, smoking, or recreational drug use Meds Home Medications and Allergies Home Medications ?Medication ?Instructions ?Recorded ?Confirmed ?Type aspirin 81 mg tablet,delayed 81 mg PO QDAY 11/17/17 09/02/24 History release (Bert Low Dose Aspirin) clopidogrel 75 mg tablet (Plavix) 75 mg PO QDAY 11/17/17 09/02/24 History metoprolol tartrate 25 mg tablet 50 mg PO BID 11/17/17 09/02/24 History semaglutide 1 mg/dose (4 mg/3 mL) 1 mg subcut QWEEK 04/07/24 09/02/24 History subcutaneous pen injector (Ozempic) oxybutynin chloride 10 mg 10 mg PO HS 09/02/24 09/02/24 History tablet,extended release 24 hr sertraline 50 mg tablet 50 mg PO DAILY 09/02/24 09/02/24 History Allergies Allergy/AdvReac Type Severity Reaction Status Date / Time No Known Allergies Allergy Verified 08/22/24 12:58 Exam Vital Signs Temp Pulse Resp BP Pulse Ox O2 Del Method O2 Flow Rate 36.1 C 104 H 16 138/81 H 97 Room Air 6 09/06/24 16:00 09/06/24 16:00 09/06/24 16:00 09/06/24 16:00 09/06/24 16:00 09/06/24 16:00 09/04/24 12:30 Narrative Exam GENERAL APPEARANCE: Patient seems to be comfortable, adequately hydrated and nourished. HEENT: EOMI, PERRLA NECK: Neck supple, no JVD or bruit CARDIOVASCULAR: Heart regular, no murmurs LUNGS/CHEST: Chest clear to auscultation. No rales, rhonchi, wheezing ABDOMEN: Soft, nontender, nondistended. No masses. Normal bowel sounds. EXTREMITIES: No edema, clubbing or cyanosis. SKIN: Right foot stump is wrapped MUSCULOSKELETAL: Status post right foot metatarsal amputation PSYCHIATRIC: Normal mood, affect LYMPHATICS: No lymphadenopathy noted NEUROLOGICAL : No neurological deficits Results Labs 09/07/24 05:05 09/07/24 05:05 Labs: Short CBC 09/06/24 Range/Units 04:54 WBC 31.0 H D (3.8-10.6) Thou/mm3 Hgb 10.6 L (13.5-16.0) g/dL Hct 31.5 L (41.0-53.0) % Plt Count 682 H D (140-440) Thou/mm3 BMP 09/05/24 09/06/24 21:06 04:54 Sodium 133 L 136 Potassium 4.2 4.2 Chloride 102 99 Carbon Dioxide 21.9 21.1 BUN 40 H 36 H Creatinine 1.4 H 1.4 H Glucose 357 H D 341 H Calcium 9.0 8.6 Liver Function 09/05/24 09/06/24 Range/Units 21:06 04:54 Total Bilirubin 0.3 (0.3-1.2) mg/dL AST 17 (0-34) U/L ALT 30 (10-49) U/L Alkaline Phosphatase 183 H (46-116) U/L Albumin 3.1 L 3.1 L (3.4-4.8) gm/dL Assessment & Plan Additional Assessment & Plan Additional Plan: Mr. Marc 74-year-old man with significant past medical history of longstanding hypertension, uncontrolled diabetes mellitus, dyslipidemia, diabetic neuropathy, diabetic retinopathy, diabetic foot presented to the hospital with a chief complaints of worsening of his wound on right foot stump # JULIO on CKDIII. Creatinine markedly improved. Underlying CKD from diabetic nephropathy. 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 # Uncontrolled diabetes mellitus -HbA1c during last visit on 04/06/2024 is 13.1 ,, 08/2024-A1c 8.6. - Yesterday his sugars went up to 500. -Patient is currently on insulin. Added Januvia and low-dose glipizide. Plan -Repeat HbA1c remains high -Started on insulin sliding scale -Hypoglycemia protocol in place # History of hypertension -Blood pressure at the time of admission is 136/74 mmHg -Patient is using metoprolol and lisinopril at home Plan -Will resume lisinopril -Medication reconciliation is ordered and will add other medications according to the blood pressures -Will monitor blood pressures # History of CAD s/p CABG -Patient is using aspirinn atorvastatin at home # Dyslipidemia -Lipid profile is within normal limits on 04/06/2024 -Patient is using statin at home Thank you Joel for allowing me to participate in the care of Mr. Marc
[2024-09-06] MEDS: HYDROmorphone INJ 2 MG/ML VIAL 0.5 MG IVP (15:00)
--- NOTE | 2024-09-06 15:25 | PD.SURPROG ---
Documentation for date of: 09/06/24 Subjective Subjective Brief History: 74M with HTN, HLD, DMII, TIA, CKD and PAD who initially underwent right great toe amputation April 2024, followed by TMA by Dr. Bravo in [place] 2 months later. Patient had been following with Dr. Bravo however due to insurance issues he is no longer able to see him. Patient has also been seen by Dr. Nobles vascular surgeon. Patient was brought to ER yesterday because his daughter noted he was more weak and that the foot was becoming more red. Patient has noted to have leukocytosis in the 20s, UA with pyuria and x-ray showing osteomyelitis of the amputated metatarsals. He developed tachycardia during this admission, read as atrial fibrillation and he was transferred to telemetry, with heart rate now well-controlled PMH: HLD, HTN, DMII, CKD, CAD, TIA in 2021, PAD, BPH, and depression PSH: Open heart valve replacement in 2008, CABG, R great toe amputation and TMA earlier this year Meds: currently taking ASA 81mg, no other antiplt during this hospitalization Allergies: NKDA SH: Lives with daughter, not ambulatory at the moment Narrative: WBC 31 from 20s yesterday, remaining afebrile, plantar surface of foot noted to have new blistering and worsened erythema today Exam Vital Signs Temp Pulse Resp BP Pulse Ox O2 Del Method O2 Flow Rate 97.1 F 72 18 115/68 97 Room Air 6 09/06/24 12:09/06/24 12:09/06/24 12:09/06/24 12:09/06/24 12:09/06/24 12:09/04/24 12:30 Constitutional Constitutional: no acute distress Routine Respiratory Exam Respiratory: Present no resp distress Routine Extremities Exam Comments: right foot TMA stump with beefy red granulation tissue, pus expressable from lateral aspect. At the medial plantar surface of the foot there is a new blister and the surrounding erythema is more pronounced Results Results: Laboratory Laboratory results: results reviewed Assessment & Plan Plan 74M with HTN, HLD, DMII, TIA, CKD and PAD who initially underwent right great toe amputation April 2024, followed by TMA by Dr. Bravo in [place] 2 months later, presenting with osteomyelitis of the TMA site as well as an eschar of the heel, s/p excisional debridement and drainage 09/04, with worsened erythema and fluctuance of the plantar surface of the foot Will perform bedside I&D of plantar surface Continue TID dressing changes Monitoring blood sugars PROCEDURES: Procedures Excisional debridement of right TMA stump and heel eschar, expression of pus
--- NOTE | 2024-09-06 15:27 | PD.SURPROC ---
PROCEDURES: Abscess I/D Site: foot Side (if applicable): right Sedation/analgesia: other (Dilaudid IV) Technique: incised with #11 blade (medial plantar surface of foot area of most fluctuance incised with #11 blade, necrotic tissue encountered which was sharply excised with scissors to level of subcutaneous tissue, 10cc pus expressed) Irrigation: Yes Packing used?: plain
[2024-09-06] MEDS: DEXTROSE 50%-WATER INJ 50 ML SYRINGE 25 ML IV (20:55)
--- NOTE | 2024-09-06 21:18 | ESPR_ITS ---
<Statement entered by Murali Davison MD - 09/07/24 15:59> I personally examined evaluated the patient with PGY 1 Dr. Wilfredo Shrestha patient is admitted to hospital with infection of the foot recurrent infection with requiring debridement clinically stable not have any spiking temperature but concerned about long-term issues patient may require amputation we will be discussing this with primary team. Evaluated patient with resident physician agree with the treatment plan recommendation as documented Documentation for date of: 09/06/24 Subjective Subjective Interval history: Patient was seen at bedside. He denies any nausea vomiting chest pain or shortness of breath. White blood cell count trended up from 23.6 to 31 on 09/06/2024. H&H 10.5 & 31.5, but have uptrended. BUN down trended from 40 to 36, creatinine unchanged. Continuing sliding scale insulin. Patient found have osteomyelitis of the stump of his foot where the amputation was, ID consulted, started ceftriaxone, doxycycline, and Flagyl. Continuing amlodipine and lisinopril. Exam Vital Signs Temp Pulse Resp BP Pulse Ox O2 Del Method O2 Flow Rate 96.8 F 97 15 122/68 98 Room Air 6 09/06/24 20:00 09/06/24 20:00 09/06/24 20:00 09/06/24 20:00 09/06/24 20:09/06/24 20:00 09/04/24 12:30 Narrative Exam General: Awake and in no acute distress. Conversational and non-toxic appearing. Neurologic: GCS 15. Alert and oriented x3, no gross neurological deficit, and patient able to move all 4 extremities. HEENT: Normocephalic, atraumatic, mucous membranes moist. Pupils reactive to light. Heart: Regular rate and rhythm, normal S1 and S2, no murmurs. Lungs: Clear to auscultation bilaterally with no wheezing or crackles. Abdomen: Soft, nondistended, nontender, positive bowel sounds. No guarding or rebound tenderness. Extremities: No edema. Right foot partially amputated, bandaged. Skin: Warm. Dry. No rash or ecchymoses. Objective Labs 09/06/24 04:54 09/06/24 04:54 Labs: Laboratory Results - last 24 hr 09/05/24 09/06/24 21:06 04:54 WBC 31.0 H D RBC 3.67 L Hgb 10.6 L Hct 31.5 L MCV 86 MCH 28.9 MCHC 33.7 RDW Std Deviation 47.1 H Plt Count 682 H D Neut % (Auto) 88 H Lymph % (Auto) 5 L [place] % (Auto) 5 Eos % (Auto) 0 Baso % (Auto) 0 Neut # (Auto) 27.4 H Lymph # (Auto) 1.4 [place] # (Auto) 1.4 H Eos # (Auto) 0.0 Baso # (Auto) 0.1 Immature Gran # (Auto) 0.71 H Absolute Nucleated RBC 0.00 Immature Gran % 2 H Nucleated RBC % 0 Sodium 133 L 136 Potassium 4.2 4.2 Chloride 102 99 Carbon Dioxide 21.9 21.1 Anion Gap 9 16 BUN 40 H 36 H Creatinine 1.4 H 1.4 H Estim Creat Clear Calc 48.9 L 48.9 L eGFR 53 L 53 L BUN/Creatinine Ratio 29 H 26 H Glucose 357 H D 341 H Calculated Osmolality 290 293 Calcium 9.0 8.6 Corrected Calcium 9.7 9.3 Phosphorus 2.5 2.4 Magnesium 2.1 Total Bilirubin 0.3 AST 17 ALT 30 Alkaline Phosphatase 183 H Total Protein 6.6 Albumin 3.1 L 3.1 L Globulin 3.5 Albumin/Globulin Ratio 0.9 L Quality Measures Quality Measures sepsis Current suspected stage: ruled out Possible source: bone/joint, genitourinary and skin/soft tissue Blood cultures ordered: yes Antibiotic ordered: Yes Advance care planning discussed with:: patient Assessment & Plan Assessment Current Active Medications: Generic Name Dose Route Start Last Admin Trade Name Freq PRN Reason Stop Dose Admin Acetaminophen 650 mg 09/01/24 22:20 09/06/24 05:50 Acetaminophen 325 Mg Tablet PO 10/01/24 22:19 650 mg Q6H PRN Administration PAIN SCALE 1-3 (mild Hydrocodone Bitart/Acetaminophen 1 tab 09/06/24 19:59 Hydrocodone/Apap 5/325 Tablet PO X1 PRN pain 4-7 Amlodipine Besylate 10 mg 09/07/24 09:00 Amlodipine Besylate 5 Mg Tablet PO 10/07/24 08:59 QDAY ALEXIS Aspirin 81 mg 09/02/24 09:00 09/06/24 09:06 Aspirin Ec 81 Mg Tabec PO 10/02/24 08:59 81 mg QDAY ALEXIS Administration Bisacodyl 5 mg 09/06/24 09:00 09/06/24 09:06 Bisacodyl 5 Mg Tabec PO 10/06/24 08:59 5 mg QDAY ALEXIS Administration Protocol Bisacodyl 10 mg 09/05/24 22:02 09/05/24 22:29 Bisacodyl 10 Mg Supp AR 10/05/24 21:43 10 mg QDAY PRN Administration Constipation Protocol Dextrose 25 ml 09/03/24 11:13 09/06/24 20:55 Dextrose 50%-Water Inj 50 Ml Syringe IV 10/03/24 11:12 25 ml Q15MIN PRN Administration BG 50-70 responsive npo pt Dextrose 50 ml 09/03/24 11:13 Dextrose 50%-Water Inj 50 Ml Syringe IV 10/03/24 11:12 Q15MIN PRN BG <50 OR BG <70 & pt unresponsive Doxycycline Hyclate 100 mg 09/06/24 21:00 Doxycycline 100 Mg Tablet PO 09/13/24 20:59 BID ALEXIS Finasteride 5 mg 09/02/24 09:00 09/06/24 09:06 Finasteride 5 Mg Tablet PO 10/02/24 08:59 5 mg QDAY ALEXIS Administration Glipizide 5 mg 09/07/24 07:30 Glipizide 5 Mg Tablet PO 10/07/24 07:29 BIDAC ALEXIS Glucagon 1 mg 09/03/24 11:13 Glucagon Inj 1 Mg Vial IM Q15MIN PRN BG <70, and no IV access Heparin Sodium (Porcine) 5,000 unit 09/02/24 09:00 09/06/24 09:07 Heparin Sod Inj 5000 Unit/Ml Vial SC 09/16/24 08:59 5,000 unit Q12HR ALEXIS Administration Ceftriaxone Sodium/Dextrose 2 gm in 50 mls @ 100 mls/hr 09/06/24 11:07 09/06/24 12:31 Rocephin/D5w 2gm IV 09/13/24 11:06 100 mls/hr QDAY ALEXIS Administration Insulin Glargine 40 unit 09/06/24 09:00 09/06/24 09:07 Insulin Glargine (Lantus) 5 Unit/0.05 Ml (Per 5 Units) SC 10/06/24 08:59 40 unit QDAY ALEXIS Administration Insulin Glargine 20 unit 09/06/24 21:00 Insulin Glargine (Lantus) 5 Unit/0.05 Ml (Per 5 Units) SC 10/06/24 20:59 HS ALEXIS Insulin Human Lispro 0 unit 09/03/24 11:30 09/06/24 17:42 Insulin Lispro (Admelog) 1 Unit/0.01 Ml Unit SC 10/03/24 11:29 3 unit ACHS ALEXIS Administration Protocol Insulin Human Lispro 15 unit 09/06/24 11:30 09/06/24 17:41 Insulin Lispro (Admelog) 1 Unit/0.01 Ml Unit SC 10/06/24 11:29 15 unit AC ALEXIS Administration Lisinopril 40 mg 09/05/24 09:00 09/06/24 05:51 Lisinopril 20 Mg Tablet PO 10/05/24 08:59 40 mg QDAY ALEXIS Administration Magnesium Oxide 400 mg 09/05/24 09:00 09/06/24 09:06 Magnesium Oxide 400 Mg Tablet PO 10/05/24 08:59 400 mg QDAY ALEXIS Administration Metoclopramide HCl 10 mg 09/06/24 00:50 09/06/24 02:30 Metoclopramide Inj 5 Mg/Ml Vial 2 Ml IVP 10/06/24 00:49 10 mg Q8HR PRN Administration NAUSEA OR VOMITING Protocol Metronidazole 500 mg 09/06/24 14:00 09/06/24 14:00 Metronidazole 250 Mg Tablet PO 10/17/24 12:00 500 mg TID ALEXIS Administration Non-Formulary Medication 1 mg 09/13/24 09:00 Semaglutide [Ozempic] [place] 10/13/24 08:59 QWEEK ALEXIS Ondansetron HCl 4 mg 09/06/24 11:00 Ondansetron Inj 2 Mg/Ml Inj 2 Ml IVP 10/06/24 10:59 Q6HR PRN NAUSEA OR VOMITING Protocol Sennosides 1 tab 09/01/24 22:20 09/05/24 05:23 Senna Tablet PO 10/01/24 22:19 1 tab QDAY PRN Administration constipation Protocol Sertraline HCl 50 mg 09/02/24 21:00 09/05/24 21:56 Sertraline Hcl 25 Mg Tablet PO 10/02/24 20:59 50 mg HS ALEXIS Administration Sitagliptin Phosphate 50 mg 09/06/24 20:30 Sitagliptin Phosphate 50 Mg Tablet PO 10/06/24 20:29 QDAY ALEXIS Sodium Hypochlorite 473 ml 09/06/24 22:00 Sod Hypochlorite 1/4 Str 473 Ml Btl IRRIG 10/06/24 21:59 TID ALEXIS Plan Mr. Marc is a 74-year-old male with past medical history significant for hypertension, uncontrolled type 2 diabetes, diabetic neuropathy hyperlipidemia, PAD, CAD status post bypass graft surgery and stents presented to the ED due to somnolence and generalized weakness. Upon hospitalization patient was also noted to have erythematous and right foot swelling. Cardiology is consulted for cardiac clearance for excisional debridement of the left foot with possible below-knee amputation. #CAD status post PCI and bypass #Primary Hypertension -Patient did have a history of stent in the RCA by another wholesale buyer and a bypass graft of the LAD prior to 2020 (patient is a bad historian and unable to provide much detailed history regarding this procedure) -Patient underwent left heart cardiac catheterization with Dr. Davison in 2020 and was found to have multivessel disease and was recommended to undergo medical management and angioplasty at possibly stents in the LAD and the distal posterior descending branch of the right coronary artery. - Echo done on 09/03: Normal LV size and function. Estimated EF at 55 %. There is grade I diastolic dysfunction. The RV is normal in size and systolic function. Mild MAC. Trace MR and TR. Aortic valve sclerosis. Plan: - Continue amlodipine ad lisinopril for HTN - Patient will need close follow-up with wholesale buyer outpatient and will possibly need another angiogram at some point since he has history of multi- vessel disease #Peripheral artery disease #Hyperlipidemia -Pt has hx of hyperlipidemia and takes atorvastatin 20 mg daily. Patient also has PAD which has complicated his surgical healing in the right foot. US LE veins 09/02 negative for DVT US LE arteries positive for right popliteal monophasic flow and left posterior tibial artery monophasic flow, but left and right ENRRIQUE greater than 0.9 - Lipid panel from April 08, 2024: Cholesterol 117, LDL 62, HDL 52, triglycerides 97 Plan: - Recommend continuing home atorvastatin - Recommend continuing aspirin 81 mg daily, amlodipine, and lisinopril. 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 Plantar Edema #Eschar of right heel #Leukocytosis #E. Coli Urinary tract infection #JULIO on CKD, likely secondary to sepsis vs dehydration #Metabolic Acidosis, anion gap, secondary to Lactic Acidosis #Anemia of chronic disease #Hyperglycemia #Type 2 diabetes mellitus on insulin #Diabetic neuropathy -management as per primary team Patient was seen and discussed with my attending physician Dr. Saman THRASHER. Wilfredo Shrestha DO PGY-1.
--- NOTE | 2024-09-06 21:35 | PC.NURSE ---
At 21:30, I spoke with the patient's daughter regarding the prescription for Ozempic 1 mg, which is nonformulary at our hospital. I informed her that the hospital would need her to pick up man the medication from her personal pharmacy and bring it to our hospital pharmacy so that it can be processed and administered to the patient according to the prescribed schedule. The patient?s daughter agreed to this plan and confirmed that she would attempt to pick up man the medication tomorrow during her visit to the patient. No further issues were raised during the conversation, Care continued.
[2024-09-06] MEDS: SERTRALINE HCL 25 MG TABLET 50 MG PO (21:50)
[2024-09-06] MEDS: DOXYCYCLINE 100 MG TABLET PO (21:50)
[2024-09-06] MEDS: HYDROcodone/APAP 5/325 TABLET 1 TAB PO (22:00)
[2024-09-06] MEDS: SOD HYPOCHLORITE 1/4 STR 473 ML BTL IRRIG (22:04)
[2024-09-07] VITALS (9 sets, daily range): BP systolic 105–155; BP diastolic 61–108; PULSE 84–110; RESP 18–97; TEMP 36.1–36.6; O2SAT 96–99; BMI 28.6
[2024-09-07] MEDS: SOD HYPOCHLORITE 1/4 STR 473 ML BTL IRRIG ×3 (05:02→21:55)
[2024-09-07 05:58] LABS: Basophils # (Auto) 0.1 Thou/mm3 (0.0-0.2); Basophils % (Auto) 0 % (0-2.5); Eosinophils # (Auto) 0.0 Thou/mm3 (0.0-0.5); Eosinophils % (Auto) 0 % (0-10); Hematocrit 29.1 % (41.0-53.0); Hemoglobin 9.4 g/dL (13.5-16.0); Immature Granulocytes Auto 0.49 Thou/mm3 (0.00-0.00); Lymphocytes # (Auto) 1.9 Thou/mm3 (1.0-4.8); Lymphocytes % (Auto) 7 % (10-50); Mean Corpuscular HGB Conc 32.3 g/dl (31.0-37.0); Mean Corpuscular Hemoglobin 28.5 pg (25.0-35.0); Mean Corpuscular Volume 88 fL (80-100); Monocytes # (Auto) 2.2 Thou/mm3 (0.0-0.8); Monocytes % (Auto) 8 % (0-12); Neutrophils # (Auto) 21.9 Thou/mm3 (1.8-7.7); Neutrophils % (Auto) 82 % (37-80); Nucleated Red Blood Cell # 0.00 Thou/mm3 (0.00-0.00); Nucleated Red Blood Cell % 0 /100 WBC (0); Platelet Count 582 Thou/mm3 (140-440); RDW Standard Deviation 49.4 fL (35.1-43.9); Red Blood Count 3.30 Miln/mm3 (4.50-5.90); White Blood Count 26.6 Thou/mm3 (3.8-10.6)
[2024-09-07 06:14] LABS: Sed Rate (ESR) 104 mm/hr (0-20)
[2024-09-07 07:00] LABS: Alanine Aminotransferase 33 U/L (10-49); Albumin, Serum 2.9 gm/dL (3.4-4.8); Albumin/Globulin Ratio 1.0 (1.2-2.2); Alkaline Phosphatase 149 U/L (46-116); Anion Gap 11 (7-16); Aspartate Amino Transferase 27 U/L (0-34); BUN/Creatinine Ratio 28 Ratio (12-20); Bilirubin,Total 0.3 mg/dL (0.3-1.2); Blood Urea Nitrogen 39 mg/dL (9-23); C-Reactive Protein 11.9 mg/dL (0.0-0.9); Calcium 8.6 mg/dL (8.3-10.6); Calcium (Corrected) 9.5 mg/dL (8.5-10.1); Carbon Dioxide 24.7 mMol/L (20.0-31.0); Chloride 102 mMol/L (98-107); Creatinine (Component) 1.4 mg/dL (0.6-1.3); Estimated Creatinine Clearance 49.3 mL/min (>60); Globulin 2.8 gm/dL (2.3-3.5); Glucose 178 mg/dL (74-106); Magnesium 1.7 mg/dL (1.6-2.6); Osmolality,Calculated 289 (275-295); Phosphorous 2.8 mg/dL (2.4-5.1); Potassium 4.1 mMol/L (3.4-5.1); Sodium 138 mMol/L (136-145); Total Protein 5.7 gm/dL (5.7-8.2); eGFR 53 See Note
[2024-09-07] MEDS: INSULIN LISPRO (AdmeLOG) 1 UNIT/0.01 ML UNIT SC ×3 (07:36→21:52)
[2024-09-07] MEDS: FINASTERIDE 5 MG TABLET PO (09:32)
[2024-09-07] MEDS: cefTRIAXone/D5w 2gm 2 GM/50 ML BAG IV (09:32)
[2024-09-07] MEDS: MAGNESIUM OXIDE 400 MG TABLET PO (09:33)
[2024-09-07] MEDS: DOXYCYCLINE 100 MG TABLET PO ×2 (09:33→21:45)
[2024-09-07] MEDS: ASPIRIN EC 81 MG TABEC PO (09:33)
[2024-09-07] MEDS: HEPARIN SOD INJ 5000 UNIT/ML VIAL SC ×2 (09:34→21:44)
[2024-09-07] MEDS: INSULIN GLARGINE (Lantus) 5 UNIT/0.05 ML (PER 5 UNITS) 40 UNIT SC (09:34)
[2024-09-07] MEDS: INSULIN LISPRO (AdmeLOG) 1 UNIT/0.01 ML UNIT 12 UNIT SC (11:55)
[2024-09-07] MEDS: GLYCERIN, ADULT 1 EA SUPP 1 EACH PR (11:57)
--- NOTE | 2024-09-07 13:31 | ESPR_ITS ---
Documentation for date of: 09/07/24 Subjective Subjective Interval history: Patient seen and examined at bedside, was hypoglycemic overnight received D50 Insulin regimen was adjusted this morning however nephrology wants patient to be on sitagliptin, resumed. Will hold mealtime scheduled insulin and adjust in a.m. for response to Januvia. Patient's family interested in pursuing amputation, informed general surgeon Dr. Miller, will hold aspirin. Dr. Miller will follow-up with the patient in a.m.. Exam Vital Signs Temp Pulse Resp BP Pulse Ox O2 Del Method O2 Flow Rate 97.6 F 107 H 19 155/108 H 99 Room Air 6 09/07/24 12:00 09/07/24 12:00 09/07/24 12:00 09/07/24 12:09/07/24 12:00 09/07/24 12:00 09/04/24 12:30 Narrative Exam Physical Exam: General: Alert, no acute distress. Skin: Warm, dry, intact, no obvious rash. Head: Normocephalic, atraumatic. Eye: Normal conjunctiva, PERRL. Cardiovascular: Regular rate and rhythm, no murmur, +S1/S2. Respiratory: Lungs are clear to auscultation, respirations unlabored, no crackles, no wheezing. Gastrointestinal: Soft, nontender, non-distended. No guarding or rebound tenderness. Extremities: No edema, no cyanosis, no clubbing. 2+ radial pulse bilaterally. Right foot wrapped tightly with bandages, no overt bleeding or pus seeping observed on bandages. Neuro: No focal deficits observed. Conversant, moving all extremities. No overt cerebellar signs/incoordination. Psychiatric: Cooperative, appropriate affect. Objective Labs 09/07/24 05:05 09/07/24 05:05 Labs: Laboratory Results - last 24 hr 09/07/24 05:05 WBC 26.6 H RBC 3.30 L Hgb 9.4 L Hct 29.1 L MCV 88 MCH 28.5 MCHC 32.3 RDW Std Deviation 49.4 H Plt Count 582 H D Neut % (Auto) 82 H Lymph % (Auto) 7 L [place] % (Auto) 8 Eos % (Auto) 0 Baso % (Auto) 0 Neut # (Auto) 21.9 H Lymph # (Auto) 1.9 [place] # (Auto) 2.2 H Eos # (Auto) 0.0 Baso # (Auto) 0.1 Immature Gran # (Auto) 0.49 H Absolute Nucleated RBC 0.00 Immature Gran % 2 H Nucleated RBC % 0 ESR 104 H Sodium 138 Potassium 4.1 Chloride 102 Carbon Dioxide 24.7 Anion Gap 11 BUN 39 H Creatinine 1.4 H Estim Creat Clear Calc 49.3 L eGFR 53 L BUN/Creatinine Ratio 28 H Glucose 178 H D Calculated Osmolality 289 Calcium 8.6 Corrected Calcium 9.5 Phosphorus 2.8 Magnesium 1.7 Total Bilirubin 0.3 AST 27 ALT 33 Alkaline Phosphatase 149 H D C-Reactive Prot, Quant 11.9 H Total Protein 5.7 Albumin 2.9 L Globulin 2.8 Albumin/Globulin Ratio 1.0 L Quality Measures Quality Measures sepsis Current suspected stage: sepsis Possible source: bone/joint, genitourinary and skin/soft tissue Blood cultures ordered: yes Antibiotic ordered: Yes Advance care planning discussed with:: patient Assessment & Plan Assessment Current Active Medications: Generic Name Dose Route Start Last Admin Trade Name Freq PRN Reason Stop Dose Admin Acetaminophen 650 mg 09/01/24 22:20 09/06/24 05:50 Acetaminophen 325 Mg Tablet PO 10/01/24 22:19 650 mg Q6H PRN Administration PAIN SCALE 1-3 (mild Amlodipine Besylate 10 mg 09/07/24 09:00 09/07/24 09:33 Amlodipine Besylate 5 Mg Tablet PO 10/07/24 08:59 10 mg QDAY ALEXIS Administration Aspirin 81 mg 09/02/24 09:00 09/07/24 09:33 Aspirin Ec 81 Mg Tabec PO 10/02/24 08:59 81 mg QDAY ALEXIS Administration Bisacodyl 5 mg 09/06/24 09:00 09/07/24 09:33 Bisacodyl 5 Mg Tabec PO 10/06/24 08:59 5 mg QDAY ALEXIS Administration Protocol Bisacodyl 10 mg 09/05/24 22:02 09/05/24 22:29 Bisacodyl 10 Mg Supp [place] 10/05/24 21:43 10 mg QDAY PRN Administration Constipation Protocol Dextrose 25 ml 09/03/24 11:13 09/06/24 20:55 Dextrose 50%-Water Inj 50 Ml Syringe IV 10/03/24 11:12 25 ml Q15MIN PRN Administration BG 50-70 responsive npo pt Dextrose 50 ml 09/03/24 11:13 Dextrose 50%-Water Inj 50 Ml Syringe IV 10/03/24 11:12 Q15MIN PRN BG <50 OR BG <70 & pt unresponsive Doxycycline Hyclate 100 mg 09/06/24 21:00 09/07/24 09:33 Doxycycline 100 Mg Tablet PO 09/13/24 20:59 100 mg BID ALEXIS Administration Finasteride 5 mg 09/02/24 09:00 09/07/24 09:32 Finasteride 5 Mg Tablet PO 10/02/24 08:59 5 mg QDAY ALEXIS Administration Glucagon 1 mg 09/03/24 11:13 Glucagon Inj 1 Mg Vial IM Q15MIN PRN BG <70, and no IV access Heparin Sodium (Porcine) 5,000 unit 09/02/24 09:00 09/07/24 09:34 Heparin Sod Inj 5000 Unit/Ml Vial SC 09/16/24 08:59 5,000 unit Q12HR ALEXIS Administration Ceftriaxone Sodium/Dextrose 2 gm in 50 mls @ 100 mls/hr 09/06/24 11:07 09/07/24 09:32 Rocephin/D5w 2gm IV 09/13/24 11:06 100 mls/hr QDAY ALEXIS Administration Insulin Glargine 40 unit 09/06/24 09:00 09/07/24 09:34 Insulin Glargine (Lantus) 5 Unit/0.05 Ml (Per 5 Units) SC 10/06/24 08:59 40 unit QDAY ALEXIS Administration Insulin Human Lispro 0 unit 09/03/24 11:30 09/07/24 11:56 Insulin Lispro (Admelog) 1 Unit/0.01 Ml Unit SC 10/03/24 11:29 4 unit ACHS ALEXIS Administration Protocol Insulin Human Lispro 12 unit 09/07/24 11:30 09/07/24 11:55 Insulin Lispro (Admelog) 1 Unit/0.01 Ml Unit SC 10/07/24 11:29 12 unit AC ALEXIS Administration Lisinopril 40 mg 09/05/24 09:00 09/07/24 09:32 Lisinopril 20 Mg Tablet PO 10/05/24 08:59 40 mg QDAY ALEXIS Administration Magnesium Oxide 400 mg 09/05/24 09:00 09/07/24 09:33 Magnesium Oxide 400 Mg Tablet PO 10/05/24 08:59 400 mg QDAY ALEXIS Administration Metoclopramide HCl 10 mg 09/06/24 00:50 09/06/24 02:30 Metoclopramide Inj 5 Mg/Ml Vial 2 Ml IVP 10/06/24 00:49 10 mg Q8HR PRN Administration NAUSEA OR VOMITING Protocol Metronidazole 500 mg 09/06/24 14:00 09/07/24 05:01 Metronidazole 250 Mg Tablet PO 10/17/24 12:00 500 mg TID ALEXIS Administration Ondansetron HCl 4 mg 09/06/24 11:00 Ondansetron Inj 2 Mg/Ml Inj 2 Ml IVP 10/06/24 10:59 Q6HR PRN NAUSEA OR VOMITING Protocol Sennosides 1 tab 09/01/24 22:20 09/05/24 05:23 Senna Tablet PO 10/01/24 22:19 1 tab QDAY PRN Administration constipation Protocol Sertraline HCl 50 mg 09/02/24 21:00 09/06/24 21:50 Sertraline Hcl 25 Mg Tablet PO 10/02/24 20:59 50 mg HS ALEXIS Administration Sitagliptin Phosphate 50 mg 09/06/24 20:30 09/06/24 21:50 Sitagliptin Phosphate 50 Mg Tablet PO 10/06/24 20:29 50 mg QDAY ALEXIS Administration Sodium Hypochlorite 473 ml 09/06/24 22:00 09/07/24 05:02 Sod Hypochlorite 1/4 Str 473 Ml Btl IRRIG 10/06/24 21:59 1 applicatio TID ALEXIS Administration Plan Mr. Marc is a 74 year old gentleman with a past history of PAD, HTN, T2DM, HLD, and s/p amputation of right metatarsals who presented to the ED with concerns of generalized weakness and AMS. The patient was admitted for sepsis management due to osteomyelitis of right foot and urinary tract infection. 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 Plantar Edema #Eschar of right heel #Leukocytosis Patient had difficulty healing his right foot after toe amputation to metatarsals about 2 months ago. The poor healing was likely due to the patient's history of peripheral artery disease. The patient presented with fever of 103.8, heart rate 112, and WBC 23.2 in the ED with source of infection (right foot) and evidence of endorgan damage in elevated creatinine. Foot x-ray done in ED showed cortical bone destruction of distal metatarsals in right foot, further suggesting osteomyelitis. Active pus in right foot, black escar of right heel, and erythematous right foot support signs of active infection in patient. qSofa 1 w/ end organ damage JULIO on CKD and lactic acid. Patient had a temperature of 103.8F, HR of 112, RR of 22, and WBC of 23.2 ED prior to admission to [facility]. This satisfies all 4 elements of SIRS criteria. Initially the patient's active source of infection is right TMA stump and UTI, along with lactic acidosis of 5.3 on 09/02/24. This fits criteria of sepsis [SIRS + source + lactic acidosis] but without septic shock due to mostly elevated BP throughout stay. ? Stopped vancomycin [09/02/24-09/06/24] and piperacillin/tazobactam [09/02/24- 09/06/24] ? Blood cultures x 2 drawn 09/01; no growth after 48 hrs 09/06 ? Right foot wound culture 09/01 pending results ? Preliminary results 09/03: Gram-positive cocci [empiric antibiotic coverage: Piperacillin/tazobactam & vancomycin] ? Results 09/05: Micrococcus and related genera ? Foot x-ray 09/01 and foot MRI 09/02 support osteomyelitis at transmetatarsal amputation site ? General Surgery Consulted, Dr. Miller, appreciate recommendations, I&D performed 09/04, planning to hopefully do wound vac hopefully Saturday 09/09 ? Cardiology consulted for surgery clearance, appreciate recommendations ? Infectious disease Consulted, Dr. Blankenship, appreciate recommendations ? ID recommends treatment through 10/17 with p.o. Flagyl 500mg TID, p.o. doxycycline 100mg BID, and IV Rocephin 2gm daily. #Urinary tract infection Patient had urinalysis performed in ED, which showed WBC 134 with 4+ bacteria, positive urine nitrate, 3+ glucose, and 1+ protein. Due to patient's altered mental status, will monitor and manage with antibiotic treatment. ? Initially managed with ceftriaxone started on 09/01, swap to piperacillin/tazobactam on 09/02, stopped piperacillin/tazobactam 09/06 ? Will monitor progression with CBC and daily examinations ? Urine culture taken on 09/01 shows E. coli, management w/ Rocephin per ID recommendations #JULIO on CKD, likely secondary to sepsis vs dehydration (resolving) #Metabolic Acidosis, anion gap, secondary to Lactic Acidosis Patient presented with BUN 35, creatinine 1.4, GFR 53. Possible explanations as to why include decreased blood flow due to sepsis from patient's osteomyelitis and/or urinary tract infection or decreased fluid intake due to altered mental status. Patient has slightly decreased bicarb at 19.6 with an anion gap, likely due to elevated lactic acid at 5.3. ? Will monitor with daily renal panel ? IV hydration with NS due to worsening of renal function 09/05 ? Will renally dose medication and avoid nephrotoxic medication ? Consulted nephrology, appreciate recommendations #Hypertension Patient has a history of hypertension and initial vitals taken in the ED showed blood pressure of 160/80. ? Restarted patient's home lisinopril 40 mg daily further improvement of JULIO noted on 09/04 ? Increased amlodipine to 10 mg daily #Anemia of chronic disease Patient had decreased H&H of 10.3/31.6 with MCV of 90. Iron panel abnormal with iron at 12, TIBC 134, iron saturation 8%, ferritin 726. Plan ? No iron tablets, given concern for sepsis ? Will monitor with daily CBC ? Will transfuse if hemoglobin drops below 7 per protocol #Hyperglycemia #Type 2 diabetes mellitus on insulin #Diabetic neuropathy Patient has reported history of type 2 diabetes mellitus and diabetic neuropathy that likely led to transmetatarsal amputation. Home glargine 20 units, Glipizide, and Januvia. Plan ? Increase glargine to 40 units in the morning hold additional lispro 12 units with meals; continue with sliding scale ? Resume home dose Januvia ? Continue to monitor fasting blood glucose, may require additional units of insulin ? 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 Patient's family reports that the patient received surgical care at [facility] in [place], [place] as they have specialists to manage peripheral artery disease in patients who require amputations in the lower extremities. 1+ pedal pulse noted in bilateral lower extremities. Likely a contributor to poor wound healing post transmetatarsal amputation, which likely contributed to infection that led to osteomyelitis. ? Held home atorvastatin 20 mg ? US LE veins 09/02 negative for DVT ? US LE arteries positive for right popliteal monophasic flow and left posterior tibial artery monophasic flow, but left and right ENRRIQUE greater than 0.9 #Hypophosphatemia Patient had phosphorus of 2.1 on 08/25 9 AM labs. ? Ordered potassium phosphate packet [Neutra-Phos] one-time dose 09/03 ? Will monitor with a.m. phosphorus levels #Thromcytosis Patient has elevated platelet count at 509 on 09/02 likely reactive secondary to acute infection. ? Will monitor with daily CBC #Constipation Patient has bowel movements every few days per family members. Patient responds well to home bisacodyl 5mg PRN. ? Restarted home bisacodyl 5mg daily ? Ordered docusate 100 mg, senna/docusate tablet, warm water enema, and glycerin suppository one-time doses to encourage bowel movement #Hypomagnesemia Patient had magnesium of 1.4 on 09/04. ? Ordered magnesium repletion with 2 gm magnesium sulfate IV once 09/04 and start 400 mg magnesium oxide daily DVT Prophylaxis: Heparin GI Prophylaxis: N/A Diet: Carb Cons Low [place]: Yes Lines: Peripheral IV Antibiotics: Doxycycline, ceftriaxone, metronidazole Code Status: FULL Reason for Hospitalization: Sepsis due to osteomyelitis and UTI Other Barriers to Discharge: Pending wound vac by General Surgery & [facility] health orders Patient plan of care was discussed with attending physician Dr. Rhett Vaughan PGY2 Attending Provider Attestation/Addendum I attest that I was physically present for the evaluation, physical examination, lab and imaging review of the patient with the residents. I discussed the case with the residents and agree with the findings and plans of care as documented above. At bedside, patient states she is feeling well and denies any new complaints. Had an episode of hypoglycemia overnight, patient was started on home sitagliptin in the evening. We will continue sitagliptin and readjust his insulin regimen. Discussed with patient, who wished to discuss about options for amputation given his PAD and having recurrent for pus collection despite being on broad-spectrum antibiotics. Discussed with general surgery, will reevaluate the patient tomorrow for need of below-knee amputation. Cardiology following, cleared patient for BKA, appreciate recommendations. Vital signs are stable except for mild hypertension, we will monitor closely and continue to adjust his antihypertensives. Blood glucose remained stable on current regimen. WBC count improved from 31-26 point kidney function and electrolyte also remained stable. ESR and CRP this morning continues to be high but improved compared to last study. Joel Delaney MD
--- NOTE | 2024-09-07 13:55 | PD.RESPRO ---
Documentation for date of: 09/07/24 Exam Vital Signs Temp Pulse Resp BP Pulse Ox O2 Del Method O2 Flow Rate 97.6 F 107 H 19 155/108 H 99 Room Air 6 09/07/24 12:00 09/07/24 12:00 09/07/24 12:00 09/07/24 12:00 09/07/24 12:00 09/07/24 12:00 09/04/24 12:30 Objective Labs 09/07/24 05:05 09/07/24 05:05 Labs: Laboratory Results - last 24 hr 09/07/24 05:05 WBC 26.6 H RBC 3.30 L Hgb 9.4 L Hct 29.1 L MCV 88 MCH 28.5 MCHC 32.3 RDW Std Deviation 49.4 H Plt Count 582 H D Neut % (Auto) 82 H Lymph % (Auto) 7 L [place] % (Auto) 8 Eos % (Auto) 0 Baso % (Auto) 0 Neut # (Auto) 21.9 H Lymph # (Auto) 1.9 [place] # (Auto) 2.2 H Eos # (Auto) 0.0 Baso # (Auto) 0.1 Immature Gran # (Auto) 0.49 H Absolute Nucleated RBC 0.00 Immature Gran % 2 H Nucleated RBC % 0 ESR 104 H Sodium 138 Potassium 4.1 Chloride 102 Carbon Dioxide 24.7 Anion Gap 11 BUN 39 H Creatinine 1.4 H Estim Creat Clear Calc 49.3 L eGFR 53 L BUN/Creatinine Ratio 28 H Glucose 178 H D Calculated Osmolality 289 Calcium 8.6 Corrected Calcium 9.5 Phosphorus 2.8 Magnesium 1.7 Total Bilirubin 0.3 AST 27 ALT 33 Alkaline Phosphatase 149 H D C-Reactive Prot, Quant 11.9 H Total Protein 5.7 Albumin 2.9 L Globulin 2.8 Albumin/Globulin Ratio 1.0 L Quality Measures Quality Measures sepsis Possible source: bone/joint, genitourinary and skin/soft tissue Blood cultures ordered: yes Assessment & Plan Assessment Current Active Medications: Generic Name Dose Route Start Last Admin Trade Name Freq PRN Reason Stop Dose Admin Acetaminophen 650 mg 09/01/24 22:20 09/06/24 05:50 Acetaminophen 325 Mg Tablet PO 10/01/24 22:19 650 mg Q6H PRN Administration PAIN SCALE 1-3 (mild Amlodipine Besylate 10 mg 09/07/24 09:00 09/07/24 09:33 Amlodipine Besylate 5 Mg Tablet PO 10/07/24 08:59 10 mg QDAY ALEXIS Administration Aspirin 81 mg 09/02/24 09:00 09/07/24 09:33 Aspirin Ec 81 Mg Tabec PO 10/02/24 08:59 81 mg QDAY ALEXIS Administration Bisacodyl 5 mg 09/06/24 09:00 09/07/24 09:33 Bisacodyl 5 Mg Tabec PO 10/06/24 08:59 5 mg QDAY ALEXIS Administration Protocol Bisacodyl 10 mg 09/05/24 22:02 09/05/24 22:29 Bisacodyl 10 Mg Supp [place] 10/05/24 21:43 10 mg QDAY PRN Administration Constipation Protocol Dextrose 25 ml 09/03/24 11:13 09/06/24 20:55 Dextrose 50%-Water Inj 50 Ml Syringe IV 10/03/24 11:12 25 ml Q15MIN PRN Administration BG 50-70 responsive npo pt Dextrose 50 ml 09/03/24 11:13 Dextrose 50%-Water Inj 50 Ml Syringe IV 10/03/24 11:12 Q15MIN PRN BG <50 OR BG <70 & pt unresponsive Doxycycline Hyclate 100 mg 09/06/24 21:00 09/07/24 09:33 Doxycycline 100 Mg Tablet PO 09/13/24 20:59 100 mg BID ALEXIS Administration Finasteride 5 mg 09/02/24 09:00 09/07/24 09:32 Finasteride 5 Mg Tablet PO 10/02/24 08:59 5 mg QDAY ALEXIS Administration Glucagon 1 mg 09/03/24 11:13 Glucagon Inj 1 Mg Vial IM Q15MIN PRN BG <70, and no IV access Heparin Sodium (Porcine) 5,000 unit 09/02/24 09:00 09/07/24 09:34 Heparin Sod Inj 5000 Unit/Ml Vial SC 09/16/24 08:59 5,000 unit Q12HR ALEXIS Administration Ceftriaxone Sodium/Dextrose 2 gm in 50 mls @ 100 mls/hr 09/06/24 11:07 09/07/24 09:32 Rocephin/D5w 2gm IV 09/13/24 11:06 100 mls/hr QDAY ALEXIS Administration Insulin Glargine 40 unit 09/06/24 09:00 09/07/24 09:34 Insulin Glargine (Lantus) 5 Unit/0.05 Ml (Per 5 Units) SC 10/06/24 08:59 40 unit QDAY ALEXIS Administration Insulin Human Lispro 0 unit 09/03/24 11:30 09/07/24 11:56 Insulin Lispro (Admelog) 1 Unit/0.01 Ml Unit SC 10/03/24 11:29 4 unit ACHS ALEXIS Administration Protocol Insulin Human Lispro 12 unit 09/07/24 11:30 09/07/24 11:55 Insulin Lispro (Admelog) 1 Unit/0.01 Ml Unit SC 10/07/24 11:29 12 unit AC ALEXIS Administration Lisinopril 40 mg 09/05/24 09:00 09/07/24 09:32 Lisinopril 20 Mg Tablet PO 10/05/24 08:59 40 mg QDAY ALEXIS Administration Magnesium Oxide 400 mg 09/05/24 09:00 09/07/24 09:33 Magnesium Oxide 400 Mg Tablet PO 10/05/24 08:59 400 mg QDAY ALEXIS Administration Metoclopramide HCl 10 mg 09/06/24 00:50 09/06/24 02:30 Metoclopramide Inj 5 Mg/Ml Vial 2 Ml IVP 10/06/24 00:49 10 mg Q8HR PRN Administration NAUSEA OR VOMITING Protocol Metronidazole 500 mg 09/06/24 14:00 09/07/24 05:01 Metronidazole 250 Mg Tablet PO 10/17/24 12:00 500 mg TID ALEXIS Administration Ondansetron HCl 4 mg 09/06/24 11:00 Ondansetron Inj 2 Mg/Ml Inj 2 Ml IVP 10/06/24 10:59 Q6HR PRN NAUSEA OR VOMITING Protocol Sennosides 1 tab 09/01/24 22:20 09/05/24 05:23 Senna Tablet PO 10/01/24 22:19 1 tab QDAY PRN Administration constipation Protocol Sertraline HCl 50 mg 09/02/24 21:00 09/06/24 21:50 Sertraline Hcl 25 Mg Tablet PO 10/02/24 20:59 50 mg HS ALEXIS Administration Sitagliptin Phosphate 50 mg 09/06/24 20:30 09/06/24 21:50 Sitagliptin Phosphate 50 Mg Tablet PO 10/06/24 20:29 50 mg QDAY ALEXIS Administration Sodium Hypochlorite 473 ml 09/06/24 22:00 09/07/24 05:02 Sod Hypochlorite 1/4 Str 473 Ml Btl IRRIG 10/06/24 21:59 1 applicatio TID ALEXIS Administration
--- NOTE | 2024-09-07 14:12 | ESPR_ITS ---
<Statement entered by Murali Davison MD - 09/07/24 16:00> I personally examined evaluated this patient who has significant long-term problems with nonhealing wound and infection patient probably required amputation primary physician did recommend amputation patient's cardiac status is stable clinically stable to have his below the knee amputation evaluate the patient with PGY 2 Dr. Leon De Luna agree with the treatment plan recommendation as documented Documentation for date of: 09/07/24 Subjective Subjective Interval history: No acute overnight events. Feels little tired after surgery yesterday. Reports no new or worsening symptoms. General surgery considering BKA. He is mild risk for surgical complications, but will need procedure for source control. Exam Vital Signs Temp Pulse Resp BP Pulse Ox O2 Del Method O2 Flow Rate 97.6 F 107 H 19 155/108 H 99 Room Air 6 09/07/24 12:00 09/07/24 12:00 09/07/24 12:00 09/07/24 12:09/07/24 12:09/07/24 12:09/04/24 12:30 Narrative Exam General: Awake and in no acute distress. Conversational and non-toxic appearing. Neurologic: GCS 15. Alert and oriented x3, no gross neurological deficit, and patient able to move all 4 extremities. HEENT: Normocephalic, atraumatic, mucous membranes moist. Pupils reactive to light. Heart: Regular rate and rhythm, normal S1 and S2, no murmurs. Lungs: Clear to auscultation bilaterally with no wheezing or crackles. Abdomen: Soft, nondistended, nontender, positive bowel sounds. No guarding or rebound tenderness. Extremities: No edema. Right foot partially amputated, bandaged. Skin: Warm. Dry. No rash or ecchymoses. Objective Labs 09/07/24 05:05 09/07/24 05:05 Labs: Laboratory Results - last 24 hr 09/07/24 05:05 WBC 26.6 H RBC 3.30 L Hgb 9.4 L Hct 29.1 L MCV 88 MCH 28.5 MCHC 32.3 RDW Std Deviation 49.4 H Plt Count 582 H D Neut % (Auto) 82 H Lymph % (Auto) 7 L [place] % (Auto) 8 Eos % (Auto) 0 Baso % (Auto) 0 Neut # (Auto) 21.9 H Lymph # (Auto) 1.9 [place] # (Auto) 2.2 H Eos # (Auto) 0.0 Baso # (Auto) 0.1 Immature Gran # (Auto) 0.49 H Absolute Nucleated RBC 0.00 Immature Gran % 2 H Nucleated RBC % 0 ESR 104 H Sodium 138 Potassium 4.1 Chloride 102 Carbon Dioxide 24.7 Anion Gap 11 BUN 39 H Creatinine 1.4 H Estim Creat Clear Calc 49.3 L eGFR 53 L BUN/Creatinine Ratio 28 H Glucose 178 H D Calculated Osmolality 289 Calcium 8.6 Corrected Calcium 9.5 Phosphorus 2.8 Magnesium 1.7 Total Bilirubin 0.3 AST 27 ALT 33 Alkaline Phosphatase 149 H D C-Reactive Prot, Quant 11.9 H Total Protein 5.7 Albumin 2.9 L Globulin 2.8 Albumin/Globulin Ratio 1.0 L Quality Measures Quality Measures sepsis Current suspected stage: ruled out Possible source: bone/joint, genitourinary and skin/soft tissue Blood cultures ordered: yes Antibiotic ordered: Yes Advance care planning discussed with:: patient Assessment & Plan Assessment Current Active Medications: Generic Name Dose Route Start Last Admin Trade Name Freq PRN Reason Stop Dose Admin Acetaminophen 650 mg 09/01/24 22:20 09/06/24 05:50 Acetaminophen 325 Mg Tablet PO 10/01/24 22:19 650 mg Q6H PRN Administration PAIN SCALE 1-3 (mild Amlodipine Besylate 10 mg 09/07/24 09:00 09/07/24 09:33 Amlodipine Besylate 5 Mg Tablet PO 10/07/24 08:59 10 mg QDAY ALEXIS Administration Aspirin 81 mg 09/02/24 09:00 09/07/24 09:33 Aspirin Ec 81 Mg Tabec PO 10/02/24 08:59 81 mg QDAY ALEXIS Administration Bisacodyl 5 mg 09/06/24 09:00 09/07/24 09:33 Bisacodyl 5 Mg Tabec PO 10/06/24 08:59 5 mg QDAY ALEXIS Administration Protocol Bisacodyl 10 mg 09/05/24 22:02 09/05/24 22:29 Bisacodyl 10 Mg Supp OH 10/05/24 21:43 10 mg QDAY PRN Administration Constipation Protocol Dextrose 25 ml 09/03/24 11:13 09/06/24 20:55 Dextrose 50%-Water Inj 50 Ml Syringe IV 10/03/24 11:12 25 ml Q15MIN PRN Administration BG 50-70 responsive npo pt Dextrose 50 ml 09/03/24 11:13 Dextrose 50%-Water Inj 50 Ml Syringe IV 10/03/24 11:12 Q15MIN PRN BG <50 OR BG <70 & pt unresponsive Doxycycline Hyclate 100 mg 09/06/24 21:00 09/07/24 09:33 Doxycycline 100 Mg Tablet PO 09/13/24 20:59 100 mg BID ALEXIS Administration Finasteride 5 mg 09/02/24 09:00 09/07/24 09:32 Finasteride 5 Mg Tablet PO 10/02/24 08:59 5 mg QDAY ALEXIS Administration Glucagon 1 mg 09/03/24 11:13 Glucagon Inj 1 Mg Vial IM Q15MIN PRN BG <70, and no IV access Heparin Sodium (Porcine) 5,000 unit 09/02/24 09:00 09/07/24 09:34 Heparin Sod Inj 5000 Unit/Ml Vial SC 09/16/24 08:59 5,000 unit Q12HR ALEXIS Administration Ceftriaxone Sodium/Dextrose 2 gm in 50 mls @ 100 mls/hr 09/06/24 11:07 09/07/24 09:32 Rocephin/D5w 2gm IV 09/13/24 11:06 100 mls/hr QDAY ALEXIS Administration Insulin Glargine 40 unit 09/06/24 09:00 09/07/24 09:34 Insulin Glargine (Lantus) 5 Unit/0.05 Ml (Per 5 Units) SC 10/06/24 08:59 40 unit QDAY ALEXIS Administration Insulin Human Lispro 0 unit 09/03/24 11:30 09/07/24 11:56 Insulin Lispro (Admelog) 1 Unit/0.01 Ml Unit SC 10/03/24 11:29 4 unit ACHS ALEXIS Administration Protocol Insulin Human Lispro 12 unit 09/07/24 11:30 09/07/24 11:55 Insulin Lispro (Admelog) 1 Unit/0.01 Ml Unit SC 10/07/24 11:29 12 unit AC ALEXIS Administration Lisinopril 40 mg 09/05/24 09:00 09/07/24 09:32 Lisinopril 20 Mg Tablet PO 10/05/24 08:59 40 mg QDAY ALEXIS Administration Magnesium Oxide 400 mg 09/05/24 09:00 09/07/24 09:33 Magnesium Oxide 400 Mg Tablet PO 10/05/24 08:59 400 mg QDAY ALEXIS Administration Metoclopramide HCl 10 mg 09/06/24 00:50 09/06/24 02:30 Metoclopramide Inj 5 Mg/Ml Vial 2 Ml IVP 10/06/24 00:49 10 mg Q8HR PRN Administration NAUSEA OR VOMITING Protocol Metronidazole 500 mg 09/06/24 14:00 09/07/24 05:01 Metronidazole 250 Mg Tablet PO 10/17/24 12:00 500 mg TID ALEXIS Administration Ondansetron HCl 4 mg 09/06/24 11:00 Ondansetron Inj 2 Mg/Ml Inj 2 Ml IVP 10/06/24 10:59 Q6HR PRN NAUSEA OR VOMITING Protocol Sennosides 1 tab 09/01/24 22:20 09/05/24 05:23 Senna Tablet PO 10/01/24 22:19 1 tab QDAY PRN Administration constipation Protocol Sertraline HCl 50 mg 09/02/24 21:00 09/06/24 21:50 Sertraline Hcl 25 Mg Tablet PO 10/02/24 20:59 50 mg HS ALEXIS Administration Sitagliptin Phosphate 50 mg 09/06/24 20:30 09/06/24 21:50 Sitagliptin Phosphate 50 Mg Tablet PO 10/06/24 20:29 50 mg QDAY ALEXIS Administration Sodium Hypochlorite 473 ml 09/06/24 22:00 09/07/24 05:02 Sod Hypochlorite 1/4 Str 473 Ml Btl IRRIG 10/06/24 21:59 1 applicatio TID ALEXIS Administration Plan Mr. Marc is a 74-year-old male with past medical history significant for hypertension, uncontrolled type 2 diabetes, diabetic neuropathy hyperlipidemia, PAD, CAD status post bypass graft surgery and stents presented to the ED due to somnolence and generalized weakness. Upon hospitalization patient was also noted to have erythematous and right foot swelling. Cardiology is consulted for cardiac clearance for excisional debridement of the left foot with possible below-knee amputation. #CAD status post PCI and bypass #Primary Hypertension -Patient did have a history of stent in the RCA by another clinical research physician and a bypass graft of the LAD prior to 2020 (patient is a bad historian and unable to provide much detailed history regarding this procedure) -Patient underwent left heart cardiac catheterization with Dr. Davison in 2020 and was found to have multivessel disease and was recommended to undergo medical management and angioplasty at possibly stents in the LAD and the distal posterior descending branch of the right coronary artery. - Echo done on 09/03: Normal LV size and function. Estimated EF at 55 %. There is grade I diastolic dysfunction. The RV is normal in size and systolic function. Mild MAC. Trace MR and TR. Aortic valve sclerosis. 09/07/2024 BP and HR slightly elevated, possible reactive to surgery/pain. He has mild cardiac risk for surgical complication but will likely tolerate BKA if indicated for source control. - Continue amlodipine ad lisinopril for HTN ? Consider increasing TAWNY/ARBs dose as indicated - Patient will need close follow-up with clinical research physician outpatient and will possibly need another angiogram at some point since he has history of multi- vessel disease #Peripheral artery disease #Hyperlipidemia -Pt has hx of hyperlipidemia and takes atorvastatin 20 mg daily. Patient also has PAD which has complicated his surgical healing in the right foot. US LE veins 09/02 negative for DVT US LE arteries positive for right popliteal monophasic flow and left posterior tibial artery monophasic flow, but left and right ENRRIQUE greater than 0.9 - Lipid panel from April 08, 2024: Cholesterol 117, LDL 62, HDL 52, triglycerides 97 Plan: - Recommend continuing home atorvastatin - Recommend continuing aspirin 81 mg daily, amlodipine, and lisinopril. 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 Plantar Edema #Eschar of right heel #Leukocytosis #E. Coli Urinary tract infection #JULIO on CKD, likely secondary to sepsis vs dehydration #Metabolic Acidosis, anion gap, secondary to Lactic Acidosis #Anemia of chronic disease #Hyperglycemia #Type 2 diabetes mellitus on insulin #Diabetic neuropathy -management as per primary team Patient was seen and discussed with my attending physician Dr. Saman THRASHER. Wilfredo Shrestha DO PGY-1.
--- NOTE | 2024-09-07 16:38 | PD.NEPHPROG ---
Documentation for date of: 09/07/24 Subjective Subjective Interval history: Patient is Burkinan-speaking and translated with the help of daughter- configuration analyst Mr. Marc is a 74-year-old man with significant past medical history of longstanding hypertension, uncontrolled diabetes mellitus x years, dyslipidemia, diabetic neuropathy//CKD III- under my care, diabetic retinopathy, diabetic foot wound since early 2024- ( rt toe amputation, subsequently right metatarsal amputation-under wound care center with hyperbaric oxygen) no improvement presented to the emergency department with worsening of the wound on the right foot brought by the daughter. Denies fever, shortness of breath, nausea, vomiting, palpitations, or diarrhea. In the hospital patient was seen by Dr. Miller who did I&D with the purulent drainage. Blood sugars have been significantly elevated between 200-500 despite giving insulin and high doses. Patient on a consistent carb low diet. Medications and labs have been reviewed. Renal consultation requested for JULIO on CKD in the setting of poorly controlled diabetes. Past medical history: Hypertension, diabetes mellitus, dyslipidemia, diabetic neuropathy, diabetic retinopathy Past surgical history: CABG Social history: Denies smoking, alcohol, other illicit drug abuse 09/06/2024 WBC 31, hemoglobin 10.6, platelets 682. Sodium 136, potassium 4.2, BUN 36, creatinine 1.4, blood sugar 341, calcium 9.3, phosphorus 2.4, magnesium 2.1, LFTs normal, albumin 3.1, urinalysis shows significant proteinuria and glucosuria. Echocardiogram showed ejection fraction 55% peripheral arterial Doppler showed severe peripheral vascular disease. Venous Doppler showed no DVT in both legs foot MRI showed questionable early osteomyelitis. 09/07/2024 patient currently seen in medical floor. Sugar seems to be much better today. Will hold off on glipizide. Creatinine stable at 1.4. Had a long conversation with patient and family regarding right BKA for his right foot metatarsal stump infection. He seems to be in agreement. Conveyed the same to Dr. Miller and primary team. Review of Systems Review of Systems Narrative Review of Systems: CONSTITUTIONAL: Patient denies any fever, chills. HEENT: Denies any visual disturbances or hearing problems. CARDIOVASCULAR: Patient denies any chest pain, shortness of breath, swelling in the lower extremities. PULMONARY: Patient denies any shortness of breath, cough. GASTROINTESTINAL: Patient denies any abdominal pain, constipation, nausea, vomiting, diarrhea. GENITOURINARY: Patient denies any urinary symptoms of burning or frequency or hematuria, denies any form in the urine. SKIN: Right foot metatarsal amputation with the infected stump MUSCULOSKELETAL: Gait imbalance NEUROLOGICAL: Denies any neurological problems of strokes, seizures or confusion. Denies any memory problems. PSYCHIATRIC: Admits some sadness Exam Vital Signs Temp Pulse Resp BP Pulse Ox O2 Del Method O2 Flow Rate 36.4 C 107 H 19 155/108 H 99 Room Air 6 09/07/24 12:00 09/07/24 12:00 09/07/24 12:09/07/24 12:09/07/24 12:00 09/07/24 12:00 09/04/24 12:30 Narrative Exam GENERAL APPEARANCE: Patient seems to be comfortable, adequately hydrated and nourished. HEENT: EOMI, PERRLA NECK: Neck supple, no JVD or bruit CARDIOVASCULAR: Heart regular, no murmurs LUNGS/CHEST: Chest clear to auscultation. No rales, rhonchi, wheezing ABDOMEN: Soft, nontender, nondistended. No masses. Normal bowel sounds. EXTREMITIES: No edema, clubbing or cyanosis. SKIN: Right foot stump is wrapped MUSCULOSKELETAL: Status post right foot metatarsal amputation PSYCHIATRIC: Normal mood, affect LYMPHATICS: No lymphadenopathy noted NEUROLOGICAL : No neurological deficits Objective Labs 09/07/24 05:05 09/07/24 05:05 Labs: Laboratory Results - last 24 hr 09/07/24 05:05 WBC 26.6 H RBC 3.30 L Hgb 9.4 L Hct 29.1 L MCV 88 MCH 28.5 MCHC 32.3 RDW Std Deviation 49.4 H Plt Count 582 H D Neut % (Auto) 82 H Lymph % (Auto) 7 L [place] % (Auto) 8 Eos % (Auto) 0 Baso % (Auto) 0 Neut # (Auto) 21.9 H Lymph # (Auto) 1.9 [place] # (Auto) 2.2 H Eos # (Auto) 0.0 Baso # (Auto) 0.1 Immature Gran # (Auto) 0.49 H Absolute Nucleated RBC 0.00 Immature Gran % 2 H Nucleated RBC % 0 ESR 104 H Sodium 138 Potassium 4.1 Chloride 102 Carbon Dioxide 24.7 Anion Gap 11 BUN 39 H Creatinine 1.4 H Estim Creat Clear Calc 49.3 L eGFR 53 L BUN/Creatinine Ratio 28 H Glucose 178 H D Calculated Osmolality 289 Calcium 8.6 Corrected Calcium 9.5 Phosphorus 2.8 Magnesium 1.7 Total Bilirubin 0.3 AST 27 ALT 33 Alkaline Phosphatase 149 H D C-Reactive Prot, Quant 11.9 H Total Protein 5.7 Albumin 2.9 L Globulin 2.8 Albumin/Globulin Ratio 1.0 L Assessment & Plan Additional Assessment & Plan Additional Plan: Mr. Marc 74-year-old man with significant past medical history of longstanding hypertension, uncontrolled diabetes mellitus, dyslipidemia, diabetic neuropathy, diabetic retinopathy, diabetic foot presented to the hospital with a chief complaints of worsening of his wound on right foot stump # JULIO on CKDIII. Creatinine markedly improved. Underlying CKD from diabetic nephropathy. 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 # Uncontrolled diabetes mellitus -HbA1c during last visit on 04/06/2024 is 13.1 ,, 08/2024-A1c 8.6. - Yesterday his sugars went up to 500. -Patient is currently on insulin. Added Januvia and low-dose glipizide. Plan -Repeat HbA1c remains high -Started on insulin sliding scale -Hypoglycemia protocol in place # History of hypertension -Blood pressure at the time of admission is 136/74 mmHg -Patient is using metoprolol and lisinopril at home Plan -Will resume lisinopril -Medication reconciliation is ordered and will add other medications according to the blood pressures -Will monitor blood pressures # History of CAD s/p CABG -Patient is using aspirinn atorvastatin at home # Dyslipidemia -Lipid profile is within normal limits on 04/06/2024 -Patient is using statin at home Thank you Joel for allowing me to participate in the care of Mr. Marc
[2024-09-07] MEDS: SERTRALINE HCL 25 MG TABLET 50 MG PO (21:45)
[2024-09-08] VITALS (10 sets, daily range): BP systolic 105–134; BP diastolic 53–70; PULSE 70–96; RESP 14–96; TEMP 36.1–36.5; O2SAT 93–98
[2024-09-08] MEDS: SOD HYPOCHLORITE 1/4 STR 473 ML BTL IRRIG (05:19)
[2024-09-08 05:55] LABS: Basophils # (Auto) 0.0 Thou/mm3 (0.0-0.2); Basophils % (Auto) 0 % (0-2.5); Eosinophils # (Auto) 0.0 Thou/mm3 (0.0-0.5); Eosinophils % (Auto) 0 % (0-10); Hematocrit 26.6 % (41.0-53.0); Immature Granulocytes Auto 0.65 Thou/mm3 (0.00-0.00); Lymphocytes # (Auto) 2.8 Thou/mm3 (1.0-4.8); Lymphocytes % (Auto) 13 % (10-50); Mean Corpuscular HGB Conc 32.3 g/dl (31.0-37.0); Mean Corpuscular Hemoglobin 28.7 pg (25.0-35.0); Mean Corpuscular Volume 89 fL (80-100); Monocytes # (Auto) 1.5 Thou/mm3 (0.0-0.8); Monocytes % (Auto) 7 % (0-12); Neutrophils # (Auto) 15.7 Thou/mm3 (1.8-7.7); Neutrophils % (Auto) 76 % (37-80); Nucleated Red Blood Cell # 0.00 Thou/mm3 (0.00-0.00); Nucleated Red Blood Cell % 0 /100 WBC (0); Platelet Count 492 Thou/mm3 (140-440); RDW Standard Deviation 49.5 fL (35.1-43.9); Red Blood Count 3.00 Miln/mm3 (4.50-5.90); White Blood Count 20.8 Thou/mm3 (3.8-10.6)
[2024-09-08 06:00] LABS: Hemoglobin 8.6 g/dL (13.5-16.0)
[2024-09-08 06:28] LABS: Alanine Aminotransferase 29 U/L (10-49); Albumin, Serum 2.6 gm/dL (3.4-4.8); Albumin/Globulin Ratio 1.0 (1.2-2.2); Alkaline Phosphatase 127 U/L (46-116); Anion Gap 10 (7-16); Aspartate Amino Transferase 22 U/L (0-34); BUN/Creatinine Ratio 34 Ratio (12-20); Bilirubin,Total 0.2 mg/dL (0.3-1.2); Blood Urea Nitrogen 44 mg/dL (9-23); Calcium 8.4 mg/dL (8.3-10.6); Calcium (Corrected) 9.5 mg/dL (8.5-10.1); Carbon Dioxide 27.1 mMol/L (20.0-31.0); Chloride 105 mMol/L (98-107); Creatinine (Component) 1.3 mg/dL (0.6-1.3); Estimated Creatinine Clearance 53.1 mL/min (>60); Globulin 2.5 gm/dL (2.3-3.5); Glucose 61 mg/dL (74-106); Magnesium 2.1 mg/dL (1.6-2.6); Osmolality,Calculated 292 (275-295); Phosphorous 3.0 mg/dL (2.4-5.1); Potassium 3.4 mMol/L (3.4-5.1); Sodium 142 mMol/L (136-145); Total Protein 5.1 gm/dL (5.7-8.2); eGFR 58 See Note
[2024-09-08] MEDS: DOXYCYCLINE 100 MG TABLET PO ×2 (09:56→21:01)
[2024-09-08] MEDS: HEPARIN SOD INJ 5000 UNIT/ML VIAL SC ×2 (09:57→21:05)
[2024-09-08] MEDS: FINASTERIDE 5 MG TABLET PO (09:57)
[2024-09-08] MEDS: cefTRIAXone/D5w 2gm 2 GM/50 ML BAG IV (09:57)
--- NOTE | 2024-09-08 10:58 | ESPR_ITS ---
Documentation for date of: 09/08/24 Subjective Subjective Interval history: Patient is Azerbaijani-speaking and translated with the help of daughter- shared services manager Mr. Marc is a 74-year-old man with significant past medical history of longstanding hypertension, uncontrolled diabetes mellitus x years, dyslipidemia, diabetic neuropathy//CKD III- under my care, diabetic retinopathy, diabetic foot wound since early 2024- ( rt toe amputation, subsequently right metatarsal amputation-under wound care center with hyperbaric oxygen) no improvement presented to the emergency department with worsening of the wound on the right foot brought by the daughter. Denies fever, shortness of breath, nausea, vomiting, palpitations, or diarrhea. In the hospital patient was seen by Dr. Miller who did I&D with the purulent drainage. Blood sugars have been significantly elevated between 200-500 despite giving insulin and high doses. Patient on a consistent carb low diet. Medications and labs have been reviewed. Renal consultation requested for JULIO on CKD in the setting of poorly controlled diabetes. Past medical history: Hypertension, diabetes mellitus, dyslipidemia, diabetic neuropathy, diabetic retinopathy Past surgical history: CABG Social history: Denies smoking, alcohol, other illicit drug abuse 09/06/2024 WBC 31, hemoglobin 10.6, platelets 682. Sodium 136, potassium 4.2, BUN 36, creatinine 1.4, blood sugar 341, calcium 9.3, phosphorus 2.4, magnesium 2.1, LFTs normal, albumin 3.1, urinalysis shows significant proteinuria and glucosuria. Echocardiogram showed ejection fraction 55% peripheral arterial Doppler showed severe peripheral vascular disease. Venous Doppler showed no DVT in both legs foot MRI showed questionable early osteomyelitis. 09/08/2024 patient currently seen in medical floor. Sugar seems to be much better today. Insulin dose adjusted by primary team creatinine stable at 1.3. Had a long conversation with patient and family regarding right BKA for his right foot metatarsal stump infection. He seems to be in agreement. Conveyed the same to Dr. Miller and primary team. Blood pressure 119/67, blood sugar this morning was very low. WBC 20.8, hemoglobin 8.6, platelets 492. Albumin 2.6 Review of Systems Review of Systems Narrative Review of Systems: CONSTITUTIONAL: Patient denies any fever, chills. HEENT: Denies any visual disturbances or hearing problems. CARDIOVASCULAR: Patient denies any chest pain, shortness of breath, swelling in the lower extremities. PULMONARY: Patient denies any shortness of breath, cough. GASTROINTESTINAL: Patient denies any abdominal pain, constipation, nausea, vomiting, diarrhea. GENITOURINARY: Patient denies any urinary symptoms of burning or frequency or hematuria, denies any form in the urine. SKIN: Right foot metatarsal amputation with the infected stump MUSCULOSKELETAL: Gait imbalance NEUROLOGICAL: Denies any neurological problems of strokes, seizures or confusion. Denies any memory problems. PSYCHIATRIC: Admits some sadness Exam Vital Signs Temp Pulse Resp BP Pulse Ox O2 Del Method O2 Flow Rate 36.5 C 88 17 119/67 96 Room Air 6 09/08/24 15:48 09/08/24 15:48 09/08/24 15:48 09/08/24 15:48 09/08/24 15:48 09/08/24 15:48 09/04/24 12:30 Narrative Exam GENERAL APPEARANCE: Patient seems to be comfortable, adequately hydrated and nourished. HEENT: EOMI, PERRLA NECK: Neck supple, no JVD or bruit CARDIOVASCULAR: Heart regular, no murmurs LUNGS/CHEST: Chest clear to auscultation. No rales, rhonchi, wheezing ABDOMEN: Soft, nontender, nondistended. No masses. Normal bowel sounds. EXTREMITIES: No edema, clubbing or cyanosis. SKIN: Right foot stump is wrapped MUSCULOSKELETAL: Status post right foot metatarsal amputation PSYCHIATRIC: Normal mood, affect LYMPHATICS: No lymphadenopathy noted NEUROLOGICAL : No neurological deficits Objective Labs 09/08/24 04:57 09/08/24 04:57 Labs: Laboratory Results - last 24 hr 09/08/24 04:57 WBC 20.8 H D RBC 3.00 L Hgb 8.6 L Hct 26.6 L MCV 89 MCH 28.7 MCHC 32.3 RDW Std Deviation 49.5 H Plt Count 492 H D Neut % (Auto) 76 Lymph % (Auto) 13 [place] % (Auto) 7 Eos % (Auto) 0 Baso % (Auto) 0 Neut # (Auto) 15.7 H Lymph # (Auto) 2.8 [place] # (Auto) 1.5 H Eos # (Auto) 0.0 Baso # (Auto) 0.0 Immature Gran # (Auto) 0.65 H Absolute Nucleated RBC 0.00 Immature Gran % 3 H Nucleated RBC % 0 Sodium 142 Potassium 3.4 D Chloride 105 Carbon Dioxide 27.1 Anion Gap 10 BUN 44 H Creatinine 1.3 Estim Creat Clear Calc 53.1 L eGFR 58 L BUN/Creatinine Ratio 34 H Glucose 61 L D Calculated Osmolality 292 Calcium 8.4 Corrected Calcium 9.5 Phosphorus 3.0 Magnesium 2.1 Total Bilirubin 0.2 L AST 22 ALT 29 Alkaline Phosphatase 127 H D Total Protein 5.1 L Albumin 2.6 L Globulin 2.5 Albumin/Globulin Ratio 1.0 L Assessment & Plan Additional Assessment & Plan Additional Plan: Mr. Marc 74-year-old man with significant past medical history of longstanding hypertension, uncontrolled diabetes mellitus, dyslipidemia, diabetic neuropathy, diabetic retinopathy, diabetic foot presented to the hospital with a chief complaints of worsening of his wound on right foot stump # JULIO on CKDIII. Creatinine markedly improved. Underlying CKD from diabetic nephropathy. Check urine protein/creatinine Gave iron, Procrit for anemia of chronic kidney disease # Diabetic right foot with Early osteomyelitis of the stump with PVD -Patient had history of chronic rt diabetic foot -Patient is following with the wound care -Patient noticed recent worsening of the wound with foul-smelling discharge from it since 4 days before the day of admission -Denies fever, nausea, vomiting, palpitations, shortness of breath Had a long conversation with the patient and daughter-might benefit from right BKA to avoid multiple surgeries due to his severe peripheral vascular disease. # Uncontrolled diabetes mellitus -HbA1c during last visit on 04/06/2024 is 13.1 ,, 08/2024-A1c 8.6. - Yesterday his sugars went up to 500. -Patient is currently on insulin. Added Januvia and low-dose glipizide. Plan -Repeat HbA1c remains high -Started on insulin sliding scale -Hypoglycemia protocol in place # History of hypertension -Blood pressure at the time of admission is 136/74 mmHg -Patient is using metoprolol and lisinopril at home Plan -Currently on amlodipine, lisinopril # History of CAD s/p CABG -Patient is using aspirin and atorvastatin at home. Aspirin held for surgery # Dyslipidemia -Lipid profile is within normal limits on 04/06/2024 -Patient is using statin at home Plan of care discussed with primary team
[2024-09-08] MEDS: INSULIN LISPRO (AdmeLOG) 1 UNIT/0.01 ML UNIT SC ×3 (11:44→21:32)
--- NOTE | 2024-09-08 12:38 | ESPR_ITS ---
<Statement entered by James Galindo MD - 09/18/24 14:31> I reviewed above note and agree with findings and plans. I have also personally examined the patient with medicine team and went over assessment and plan with medical team including audit intern and resident physician. <Statement entered by Aida Farr MD - 09/08/24 17:25> Patient is at bedside, patient continues to have pain and discomfort in his right foot which is causing him to have poor oral intake. Blood glucose this morning was 57. Will decrease patient's Lantus to 40 units but will hold lispro for now and continue sliding scale insulin. Patient and her daughter had a discussion with the nephrology team and would like to undergo BKA instead of repeat incision and drainage and debridement. Per surgery possibly planning to undergo surgery either tomorrow or Monday. Will continue to monitor. Patient was seen and examined by me personally. I have directly supervised and reviewed documentation by the team resident and agree with its findings with the above exceptions/and additional findings. ------- Plan of care was discussed with the attending, Dr. Josie Farr, PGY-2 Documentation for date of: 09/08/24 Subjective Subjective Interval history: Overnight events: No acute events. Patient was seen and examined at bedside. AM vitals and labs reviewed. No complaints at this time. Nephrology restarted the patient's home Januvia and Ozempic continue to hold home glipizide, I discussed with the patient about the benefits of right BKA. A.m. glucose noted to be 57 this morning, patient noted to have only eaten about 25% of his plate for dinner yesterday. Will decrease Lantus from 40 units to 30 units at night. Encourage patient and family members to increase patient's percent of meals eaten. ESR 104 and CRP 11.9 resulted yesterday. Pending recs from general surgery about possible BKA. Review of systems otherwise negative except for what is mentioned above. Exam Vital Signs Temp Pulse Resp BP Pulse Ox O2 Del Method O2 Flow Rate 97.1 F 79 14 126/63 96 Room Air 6 09/08/24 08:00 09/08/24 09:56 09/08/24 08:00 09/08/24 09:56 09/08/24 08:00 09/08/24 08:00 09/04/24 12:30 Narrative Exam Physical Exam: General: Alert, no acute distress. Skin: Warm, dry, intact, no obvious rash. Head: Normocephalic, atraumatic. Eye: Normal conjunctiva, PERRL. Cardiovascular: Regular rate and rhythm, no murmur, +S1/S2. Respiratory: Lungs are clear to auscultation, respirations unlabored, no crackles, no wheezing. Gastrointestinal: Soft, nontender, non-distended. No guarding or rebound tenderness. Extremities: No edema, no cyanosis, no clubbing. 2+ radial pulse bilaterally. R ight foot wrapped tightly with bandages without signs of serosanguineous stains. Neuro: No focal deficits observed. Conversant, moving all extremities. No overt cerebellar signs/incoordination. Psychiatric: Cooperative, appropriate affect. Objective Labs 09/08/24 04:57 09/08/24 04:57 Labs: Laboratory Results - last 24 hr 09/08/24 04:57 WBC 20.8 H D RBC 3.00 L Hgb 8.6 L Hct 26.6 L MCV 89 MCH 28.7 MCHC 32.3 RDW Std Deviation 49.5 H Plt Count 492 H D Neut % (Auto) 76 Lymph % (Auto) 13 Mayes % (Auto) 7 Eos % (Auto) 0 Baso % (Auto) 0 Neut # (Auto) 15.7 H Lymph # (Auto) 2.8 Mayes # (Auto) 1.5 H Eos # (Auto) 0.0 Baso # (Auto) 0.0 Immature Gran # (Auto) 0.65 H Absolute Nucleated RBC 0.00 Immature Gran % 3 H Nucleated RBC % 0 Sodium 142 Potassium 3.4 D Chloride 105 Carbon Dioxide 27.1 Anion Gap 10 BUN 44 H Creatinine 1.3 Estim Creat Clear Calc 53.1 L eGFR 58 L BUN/Creatinine Ratio 34 H Glucose 61 L D Calculated Osmolality 292 Calcium 8.4 Corrected Calcium 9.5 Phosphorus 3.0 Magnesium 2.1 Total Bilirubin 0.2 L AST 22 ALT 29 Alkaline Phosphatase 127 H D Total Protein 5.1 L Albumin 2.6 L Globulin 2.5 Albumin/Globulin Ratio 1.0 L Quality Measures Quality Measures sepsis Current suspected stage: sepsis Possible source: bone/joint, genitourinary and skin/soft tissue Blood cultures ordered: yes Antibiotic ordered: Yes Advance care planning discussed with:: patient and child Assessment & Plan Assessment Current Active Medications: Generic Name Dose Route Start Last Admin Trade Name Freq PRN Reason Stop Dose Admin Acetaminophen 650 mg 09/01/24 22:20 09/06/24 05:50 Acetaminophen 325 Mg Tablet PO 10/01/24 22:19 650 mg Q6H PRN Administration PAIN SCALE 1-3 (mild Amlodipine Besylate 10 mg 09/07/24 09:00 09/08/24 09:56 Amlodipine Besylate 5 Mg Tablet PO 10/07/24 08:59 10 mg QDAY ALEXIS Administration Aspirin 81 mg 09/02/24 09:00 09/07/24 09:33 Aspirin Ec 81 Mg Tabec PO 10/02/24 08:59 81 mg QDAY ALEXIS Administration Bisacodyl 5 mg 09/06/24 09:00 09/08/24 10:18 Bisacodyl 5 Mg Tabec PO 10/06/24 08:59 Not Given QDAY ALEXIS Protocol Bisacodyl 10 mg 09/05/24 22:02 09/05/24 22:29 Bisacodyl 10 Mg Supp MT 10/05/24 21:43 10 mg QDAY PRN Administration Constipation Protocol Dextrose 25 ml 09/03/24 11:13 09/06/24 20:55 Dextrose 50%-Water Inj 50 Ml Syringe IV 10/03/24 11:12 25 ml Q15MIN PRN Administration BG 50-70 responsive npo pt Dextrose 50 ml 09/03/24 11:13 Dextrose 50%-Water Inj 50 Ml Syringe IV 10/03/24 11:12 Q15MIN PRN BG <50 OR BG <70 & pt unresponsive Doxycycline Hyclate 100 mg 09/06/24 21:00 09/08/24 09:56 Doxycycline 100 Mg Tablet PO 09/13/24 20:59 100 mg BID ALEXIS Administration Finasteride 5 mg 09/02/24 09:00 09/08/24 09:57 Finasteride 5 Mg Tablet PO 10/02/24 08:59 5 mg QDAY ALEXIS Administration Glucagon 1 mg 09/03/24 11:13 Glucagon Inj 1 Mg Vial IM Q15MIN PRN BG <70, and no IV access Heparin Sodium (Porcine) 5,000 unit 09/02/24 09:00 09/08/24 09:57 Heparin Sod Inj 5000 Unit/Ml Vial SC 09/16/24 08:59 5,000 unit Q12HR ALEXIS Administration Ceftriaxone Sodium/Dextrose 2 gm in 50 mls @ 100 mls/hr 09/06/24 11:07 09/08/24 09:57 Rocephin/D5w 2gm IV 09/13/24 11:06 100 mls/hr QDAY ALEXIS Administration Insulin Glargine 30 unit 09/08/24 21:00 Insulin Glargine (Lantus) 5 Unit/0.05 Ml (Per 5 Units) SC 10/08/24 20:59 HS ALEXIS Insulin Human Lispro 0 unit 09/03/24 11:30 09/08/24 11:44 Insulin Lispro (Admelog) 1 Unit/0.01 Ml Unit SC 10/03/24 11:29 4 unit ACHS ALEXIS Administration Protocol Insulin Human Lispro 12 unit 09/07/24 11:30 09/07/24 11:55 Insulin Lispro (Admelog) 1 Unit/0.01 Ml Unit SC 10/07/24 11:29 12 unit AC ALEXIS Administration Lisinopril 40 mg 09/05/24 09:00 09/08/24 09:55 Lisinopril 20 Mg Tablet PO 10/05/24 08:59 40 mg QDAY ALEXIS Administration Metoclopramide HCl 10 mg 09/06/24 00:50 09/06/24 02:30 Metoclopramide Inj 5 Mg/Ml Vial 2 Ml IVP 10/06/24 00:49 10 mg Q8HR PRN Administration NAUSEA OR VOMITING Protocol Metronidazole 500 mg 09/06/24 14:00 09/08/24 05:18 Metronidazole 250 Mg Tablet PO 10/17/24 12:00 500 mg TID ALEXIS Administration Ondansetron HCl 4 mg 09/06/24 11:00 Ondansetron Inj 2 Mg/Ml Inj 2 Ml IVP 10/06/24 10:59 Q6HR PRN NAUSEA OR VOMITING Protocol Sennosides 1 tab 09/01/24 22:20 09/05/24 05:23 Senna Tablet PO 10/01/24 22:19 1 tab QDAY PRN Administration constipation Protocol Sertraline HCl 50 mg 09/02/24 21:00 09/07/24 21:45 Sertraline Hcl 25 Mg Tablet PO 10/02/24 20:59 50 mg HS ALEXIS Administration Sitagliptin Phosphate 100 mg 09/08/24 09:00 09/08/24 09:56 Sitagliptin Phosphate 50 Mg Tablet PO 10/08/24 08:59 100 mg QDAY ALEXIS Administration Sodium Hypochlorite 473 ml 09/06/24 22:00 09/08/24 05:19 Sod Hypochlorite 1/4 Str 473 Ml Btl IRRIG 10/06/24 21:59 1 applicatio TID ALEXIS Administration Plan Mr. Marc is a 74 year old gentleman with a past history of PAD, HTN, T2DM, HLD, and s/p amputation of right metatarsals who presented to the ED with concerns of generalized weakness and AMS. The patient was admitted for sepsis management due to osteomyelitis of right foot and urinary tract infection. #Right foot osteomyelitis at right transmetatarsal amuptation site #s/p right transmetatarsal amputation #Sepsis #SIRs Criteria #R. Plantar Edema #Eschar of right heel #Leukocytosis Patient had difficulty healing his right foot after toe amputation to metatarsals about 2 months ago. The poor healing was likely due to the patient's history of peripheral artery disease. The patient presented with fever of 103.8, heart rate 112, and WBC 23.2 in the ED with source of infection (right foot) and evidence of endorgan damage in elevated creatinine. Foot x-ray done in ED showed cortical bone destruction of distal metatarsals in right foot, further suggesting osteomyelitis. Active pus in right foot, black escar of right heel, and erythematous right foot support signs of active infection in patient. qSofa 1 w/ end organ damage JULIO on CKD and lactic acid. Patient had a temperature of 103.8F, HR of 112, RR of 22, and WBC of 23.2 ED prior to admission to [facility]. This satisfies all 4 elements of SIRS criteria. Initially the patient's active source of infection is right TMA stump and UTI, along with lactic acidosis of 5.3 on 09/02/24. This fits criteria of sepsis [SIRS + source + lactic acidosis] but without septic shock due to mostly elevated BP throughout stay. ? Stopped vancomycin [09/02/24-09/06/24] and piperacillin/tazobactam [09/02/24- 09/06/24] ? Blood cultures x 2 drawn 09/01; no growth after 48 hrs 09/06 ? Right foot wound culture 09/01 pending results ? Preliminary results 09/03: Gram-positive cocci [empiric antibiotic coverage: Piperacillin/tazobactam & vancomycin] ? Results 09/05: Micrococcus and related genera ? Foot x-ray 09/01 and foot MRI 09/02 support osteomyelitis at transmetatarsal amputation site ? General Surgery Consulted, Dr. Miller, appreciate recommendations, I&D performed 09/04, planning to hopefully do wound vac hopefully Saturday 09/09 ? Cardiology consulted for surgery clearance, appreciate recommendations ? Infectious disease Consulted, Dr. Blankenship, appreciate recommendations ? ID recommends treatment through 10/17 with p.o. Flagyl 500mg TID, p.o. doxycycline 100mg BID, and IV Rocephin 2gm daily. ? Ordered ESR and CRP 09/06 for uptrending WBC #Urinary tract infection Patient had urinalysis performed in ED, which showed WBC 134 with 4+ bacteria, positive urine nitrate, 3+ glucose, and 1+ protein. Due to patient's altered mental status, will monitor and manage with antibiotic treatment. ? Initially managed with ceftriaxone started on 09/01, swap to piperacillin/tazobactam on 09/02, stopped piperacillin/tazobactam 09/06 ? Will monitor progression with CBC and daily examinations ? Urine culture taken on 09/01 shows E. coli, management w/ Rocephin per ID recommendations #JULIO on CKD, likely secondary to sepsis vs dehydration (resolving) #Metabolic Acidosis, anion gap, secondary to Lactic Acidosis Patient presented with BUN 35, creatinine 1.4, GFR 53. Possible explanations as to why include decreased blood flow due to sepsis from patient's osteomyelitis and/or urinary tract infection or decreased fluid intake due to altered mental status. Patient has slightly decreased bicarb at 19.6 with an anion gap, likely due to elevated lactic acid at 5.3. ? Will monitor with daily renal panel ? IV hydration with NS due to worsening of renal function 09/05 ? Will renally dose medication and avoid nephrotoxic medication ? Consulted nephrology, appreciate recommendations #Hypertension Patient has a history of hypertension and initial vitals taken in the ED showed blood pressure of 160/80. ? Restarted patient's home lisinopril 40 mg daily further improvement of JULIO noted on 09/04 ? Increased amlodipine to 10 mg daily #Anemia of chronic disease Patient had decreased H&H of 10.3/31.6 with MCV of 90. Iron panel abnormal with iron at 12, UIBC 134, iron saturation 8%, ferritin 726. Plan ? No iron tablets, given concern for sepsis ? Will monitor with daily CBC ? Will transfuse if hemoglobin drops below 7 per protocol #Hyperglycemia #Type 2 diabetes mellitus on insulin #Diabetic neuropathy Patient has reported history of type 2 diabetes mellitus and diabetic neuropathy that likely led to transmetatarsal amputation. Home glargine 20 units, Glipizide, and Januvia. Plan ? Decrease glargine from 40 units daily to 30 units at night starting 09/08 ? Hold mealtime insulin 09/07 due to concerns of hypoglycemia ? Continue to monitor fasting blood glucose ? Patient had episodes of hyperglycemia after I&D on 09/04, educated patient on the importance of not consuming outside hospital food while inpatient ? Nephrology restarted patient's home Januvia and Ozempic ? Continue to hold home glipizide #Hyperlipidemia #History of peripheral artery disease #History of thrombus in RLE Patient was reported to have a history of hyperlipidemia on home atorvastatin 20 mg. Patient's family reports that the patient received surgical care at [facility] in [place], [place] as they have specialists to manage peripheral artery disease in patients who require amputations in the lower extremities. 1+ pedal pulse noted in bilateral lower extremities. Likely a contributor to poor wound healing post transmetatarsal amputation, which likely contributed to infection that led to osteomyelitis. ? Held home atorvastatin 20 mg ? US LE veins 09/02 negative for DVT ? US LE arteries positive for right popliteal monophasic flow and left posterior tibial artery monophasic flow, but left and right ENRRIQUE greater than 0.9 #Hypophosphatemia Patient had phosphorus of 2.1 on 08/25 9 AM labs. ? Ordered potassium phosphate packet [Neutra-Phos] one-time dose 09/03 ? Will monitor with a.m. phosphorus levels #Thromcytosis Patient has elevated platelet count at 509 on 09/02 likely reactive secondary to acute infection. ? Will monitor with daily CBC #Constipation Patient has bowel movements every few days per family members. Patient responds well to home bisacodyl 5mg PRN. ? Continue bisacodyl 10 mg daily ? Ordered docusate 100 mg, senna/docusate tablet, warm water enema, and glycerin suppository one-time doses to encourage bowel movement on 09/06 #Hypomagnesemia Patient had magnesium of 1.4 on 09/04. ? Ordered magnesium repletion with 2 gm magnesium sulfate IV once 09/04 and start 400 mg magnesium oxide daily. Stopped on 09/08. DVT Prophylaxis: Heparin GI Prophylaxis: N/A Diet: NPO Monroe: Yes Lines: Peripheral IV Antibiotics: Doxycycline, ceftriaxone, metronidazole Code Status: FULL Reason for Hospitalization: Sepsis due to osteomyelitis and UTI Other Barriers to Discharge: Pending wound vac by General Surgery & [facility] orders Patient plan of care was discussed with the senior resident Dr. Farr (PGY-2) and attending physician Dr. Galindo. Mando Lima, PGY1
--- NOTE | 2024-09-08 13:04 | ESPR_ITS ---
Documentation for date of: 09/08/24 Subjective Subjective Brief History: 74M with HTN, HLD, DMII, TIA, CKD and PAD who initially underwent right great toe amputation April 2024, followed by TMA by Dr. Bravo in [place] 2 months later. Patient had been following with Dr. Bravo however due to insurance issues he is no longer able to see him. Patient has also been seen by Dr. Nobles vascular surgeon. Patient was brought to ER yesterday because his daughter noted he was more weak and that the foot was becoming more red. Patient has noted to have leukocytosis in the 20s, UA with pyuria and x-ray showing osteomyelitis of the amputated metatarsals. He developed tachycardia during this admission, read as atrial fibrillation and he was transferred to telemetry, with heart rate now well- controlled PMH: HLD, HTN, DMII, CKD, CAD, TIA in 2021, PAD, BPH, and depression PSH: Open heart valve replacement in 2008, CABG, R great toe amputation and TMA earlier this year Meds: currently taking ASA 81mg, no other antiplt during this hospitalization Allergies: NKDA SH: Lives with daughter, not ambulatory at the moment Narrative: Patient and family have decided they are ready for below-knee amputation, as they have noticed the foot has not shown much improvement despite multiple procedures including his recent hyperbaric oxygen therapy as well as vascular intervention Exam Vital Signs Temp Pulse Resp BP Pulse Ox O2 Del Method O2 Flow Rate 97.3 F 96 20 110/60 98 Room Air 6 09/08/24 12:09/08/24 12:09/08/24 12:09/08/24 12:09/08/24 12:09/08/24 12:09/04/24 12:30 Constitutional Constitutional: no acute distress Routine Respiratory Exam Respiratory: Present no resp distress Routine Extremities Exam Comments: Right foot TMA stump with beefy red granulation tissue, exposed metatarsals laterally, and persistent erythema of the plantar surface of the foot with necrotic tissue at the medial ulcer Results Results: Laboratory Laboratory results: results reviewed Results: Imaging Imaging narrative: Echo reviewed Assessment & Plan Plan 74M with HTN, HLD, DMII, TIA, CKD and PAD who initially underwent right great toe amputation April 2024, followed by TMA by Dr. Bravo in [place] 2 months later, presenting with osteomyelitis of the TMA site as well as an eschar of the heel, s/p excisional debridement and drainage 09/04, with worsened erythema and fluctuance of the plantar surface of the foot. Given the extent of procedures patient has already undergone and that there is still significant necrotic tissue on the plantar surface of the foot, I do agree that it is reasonable to proceed with below-knee amputation. I explained risks of bleeding, potentially requiring blood transfusions, as well as postoperative bleeding, infection and phantom limb pain. All questions were answered and patient and family are agreeable to proceeding Right below-knee amputation booked as add-on case for tomorrow 09/09, pending timing may defer to Sunday 09/10 N.p.o. after midnight PROCEDURES: Procedures Excisional debridement of right TMA stump and heel eschar, expression of pus
--- NOTE | 2024-09-08 14:12 | ESPR_ITS ---
<Statement entered by Murali Davison MD - 09/11/24 18:16> I personally evaluated the patient examined with resident physician PGY 1 Dr. Shrestha patient is doing clinically well not have any problem with cardiac symptoms chest pain shortness of patient's will be scheduled for amputation below the knee amputation which appears to be appropriate in this patient patient is stable diffuse multivessel CAD and grafts being patent but diffuse distal disease of PDA stable on medical management no need for any cardiac or coronary intervention at this time given cardiac clearance for amputation as scheduled. All essential components of the note are reviewed by me personally and we will continue to monitor the patient closely with the resident team Documentation for date of: 09/08/24 Subjective Subjective Interval history: No overnight events. General surgery is still considering a below-knee amputation on the right side. Review of popliteal arterial duplex study showed monophasic adequate flow in the popliteal artery. Vitals are stable. Leukocytosis downtrending. Exam Vital Signs Temp Pulse Resp BP Pulse Ox O2 Del Method O2 Flow Rate 97.3 F 96 20 110/60 98 Room Air 6 09/08/24 12:00 09/08/24 12:00 09/08/24 12:09/08/24 12:09/08/24 12:09/08/24 12:09/04/24 12:30 Narrative Exam General: Awake and in no acute distress. Conversational and non-toxic appearing. Neurologic: GCS 15. Alert and oriented x3, no gross neurological deficit, and patient able to move all 4 extremities. HEENT: Normocephalic, atraumatic, mucous membranes moist. Pupils reactive to light. Heart: Regular rate and rhythm, normal S1 and S2, no murmurs. Lungs: Clear to auscultation bilaterally with no wheezing or crackles. Abdomen: Soft, nondistended, nontender, positive bowel sounds. No guarding or rebound tenderness. Extremities: No edema. Right foot partially amputated, bandaged. Skin: Warm. Dry. No rash or ecchymoses. Objective Labs 09/08/24 04:57 09/08/24 04:57 Labs: Laboratory Results - last 24 hr 09/08/24 04:57 WBC 20.8 H D RBC 3.00 L Hgb 8.6 L Hct 26.6 L MCV 89 MCH 28.7 MCHC 32.3 RDW Std Deviation 49.5 H Plt Count 492 H D Neut % (Auto) 76 Lymph % (Auto) 13 [place] % (Auto) 7 Eos % (Auto) 0 Baso % (Auto) 0 Neut # (Auto) 15.7 H Lymph # (Auto) 2.8 [place] # (Auto) 1.5 H Eos # (Auto) 0.0 Baso # (Auto) 0.0 Immature Gran # (Auto) 0.65 H Absolute Nucleated RBC 0.00 Immature Gran % 3 H Nucleated RBC % 0 Sodium 142 Potassium 3.4 D Chloride 105 Carbon Dioxide 27.1 Anion Gap 10 BUN 44 H Creatinine 1.3 Estim Creat Clear Calc 53.1 L eGFR 58 L BUN/Creatinine Ratio 34 H Glucose 61 L D Calculated Osmolality 292 Calcium 8.4 Corrected Calcium 9.5 Phosphorus 3.0 Magnesium 2.1 Total Bilirubin 0.2 L AST 22 ALT 29 Alkaline Phosphatase 127 H D Total Protein 5.1 L Albumin 2.6 L Globulin 2.5 Albumin/Globulin Ratio 1.0 L Quality Measures Quality Measures sepsis Current suspected stage: ruled out Possible source: bone/joint, genitourinary and skin/soft tissue Blood cultures ordered: yes Antibiotic ordered: Yes Advance care planning discussed with:: patient Assessment & Plan Assessment Current Active Medications: Generic Name Dose Route Start Last Admin Trade Name Freq PRN Reason Stop Dose Admin Acetaminophen 650 mg 09/01/24 22:20 09/06/24 05:50 Acetaminophen 325 Mg Tablet PO 10/01/24 22:19 650 mg Q6H PRN Administration PAIN SCALE 1-3 (mild Amlodipine Besylate 10 mg 09/07/24 09:00 09/08/24 09:56 Amlodipine Besylate 5 Mg Tablet PO 10/07/24 08:59 10 mg QDAY ALEXIS Administration Aspirin 81 mg 09/02/24 09:00 09/07/24 09:33 Aspirin Ec 81 Mg Tabec PO 10/02/24 08:59 81 mg QDAY ALEXIS Administration Bisacodyl 5 mg 09/06/24 09:00 09/08/24 10:18 Bisacodyl 5 Mg Tabec PO 10/06/24 08:59 Not Given QDAY ALEXIS Protocol Bisacodyl 10 mg 09/05/24 22:02 09/05/24 22:29 Bisacodyl 10 Mg Supp CO 10/05/24 21:43 10 mg QDAY PRN Administration Constipation Protocol Dextrose 25 ml 09/03/24 11:13 09/06/24 20:55 Dextrose 50%-Water Inj 50 Ml Syringe IV 10/03/24 11:12 25 ml Q15MIN PRN Administration BG 50-70 responsive npo pt Dextrose 50 ml 09/03/24 11:13 Dextrose 50%-Water Inj 50 Ml Syringe IV 10/03/24 11:12 Q15MIN PRN BG <50 OR BG <70 & pt unresponsive Doxycycline Hyclate 100 mg 09/06/24 21:00 09/08/24 09:56 Doxycycline 100 Mg Tablet PO 09/13/24 20:59 100 mg BID ALEXIS Administration Finasteride 5 mg 09/02/24 09:00 09/08/24 09:57 Finasteride 5 Mg Tablet PO 10/02/24 08:59 5 mg QDAY ALEXIS Administration Glucagon 1 mg 09/03/24 11:13 Glucagon Inj 1 Mg Vial IM Q15MIN PRN BG <70, and no IV access Heparin Sodium (Porcine) 5,000 unit 09/02/24 09:00 09/08/24 09:57 Heparin Sod Inj 5000 Unit/Ml Vial SC 09/16/24 08:59 5,000 unit Q12HR ALEXIS Administration Ceftriaxone Sodium/Dextrose 2 gm in 50 mls @ 100 mls/hr 09/06/24 11:07 09/08/24 09:57 Rocephin/D5w 2gm IV 09/13/24 11:06 100 mls/hr QDAY ALEXIS Administration Insulin Glargine 30 unit 09/08/24 21:00 Insulin Glargine (Lantus) 5 Unit/0.05 Ml (Per 5 Units) OK 10/08/24 20:59 HS ALEXIS Insulin Human Lispro 0 unit 09/03/24 11:30 09/08/24 11:44 Insulin Lispro (Admelog) 1 Unit/0.01 Ml Unit SC 10/03/24 11:29 4 unit [facility] Administration Protocol Insulin Human Lispro 12 unit 09/07/24 11:30 09/07/24 11:55 Insulin Lispro (Admelog) 1 Unit/0.01 Ml Unit SC 10/07/24 11:29 12 unit AC ALEXIS Administration Lisinopril 40 mg 09/05/24 09:00 09/08/24 09:55 Lisinopril 20 Mg Tablet PO 10/05/24 08:59 40 mg QDAY ALEXIS Administration Metoclopramide HCl 10 mg 09/06/24 00:50 09/06/24 02:30 Metoclopramide Inj 5 Mg/Ml Vial 2 Ml IVP 10/06/24 00:49 10 mg Q8HR PRN Administration NAUSEA OR VOMITING Protocol Metronidazole 500 mg 09/06/24 14:00 09/08/24 05:18 Metronidazole 250 Mg Tablet PO 10/17/24 12:00 500 mg TID ALEXIS Administration Ondansetron HCl 4 mg 09/06/24 11:00 Ondansetron Inj 2 Mg/Ml Inj 2 Ml IVP 10/06/24 10:59 Q6HR PRN NAUSEA OR VOMITING Protocol Sennosides 1 tab 09/01/24 22:20 09/05/24 05:23 Senna Tablet PO 10/01/24 22:19 1 tab QDAY PRN Administration constipation Protocol Sertraline HCl 50 mg 09/02/24 21:00 09/07/24 21:45 Sertraline Hcl 25 Mg Tablet PO 10/02/24 20:59 50 mg HS ALEXIS Administration Sitagliptin Phosphate 100 mg 09/08/24 09:00 09/08/24 09:56 Sitagliptin Phosphate 50 Mg Tablet PO 10/08/24 08:59 100 mg QDAY ALEXIS Administration Sodium Hypochlorite 473 ml 09/06/24 22:00 09/08/24 05:19 Sod Hypochlorite 1/4 Str 473 Ml Btl IRRIG 10/06/24 21:59 1 applicatio TID ALEXIS Administration Plan Mr. Marc is a 74-year-old male with past medical history significant for hypertension, uncontrolled type 2 diabetes, diabetic neuropathy hyperlipidemia, PAD, CAD status post bypass graft surgery and stents presented to the ED due to somnolence and generalized weakness. Upon hospitalization patient was also noted to have erythematous and right foot swelling. Cardiology is consulted for cardiac clearance for excisional debridement of the left foot with possible below-knee amputation. #CAD status post PCI and bypass #Primary Hypertension -Patient did have a history of stent in the RCA by another profiling machine operator and a bypass graft of the LAD prior to 2020 (patient is a bad historian and unable to provide much detailed history regarding this procedure) -Patient underwent left heart cardiac catheterization with Dr. Davison in 2020 and was found to have multivessel disease and was recommended to undergo medical management and angioplasty at possibly stents in the LAD and the distal posterior descending branch of the right coronary artery. - Echo done on 09/03: Normal LV size and function. Estimated EF at 55 %. There is grade I diastolic dysfunction. The RV is normal in size and systolic function. Mild MAC. Trace MR and TR. Aortic valve sclerosis. Plan: - Continue amlodipine ad lisinopril for HTN - Patient will need close follow-up with profiling machine operator outpatient and will possibly need another angiogram at some point since he has history of multi- vessel disease #Peripheral artery disease #Hyperlipidemia -Pt has hx of hyperlipidemia and takes atorvastatin 20 mg daily. Patient also has PAD which has complicated his surgical healing in the right foot. US LE veins 09/02 negative for DVT US LE arteries positive for right popliteal monophasic flow and left posterior tibial artery monophasic flow, but left and right ENRRIQUE greater than 0.9 - Lipid panel from April 08, 2024: Cholesterol 117, LDL 62, HDL 52, triglycerides 97 - Review of the popliteal artery duplex showed monophasic adequate flow, will discuss with general surgery regarding below-knee amputation. Plan: - Recommend continuing home atorvastatin - Recommend continuing aspirin 81 mg daily, amlodipine, and lisinopril. 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 Plantar Edema #Eschar of right heel #Leukocytosis #E. Coli Urinary tract infection #JULIO on CKD, likely secondary to sepsis vs dehydration #Metabolic Acidosis, anion gap, secondary to Lactic Acidosis #Anemia of chronic disease #Hyperglycemia #Type 2 diabetes mellitus on insulin #Diabetic neuropathy -management as per primary team Patient was seen and discussed with my attending physician Dr. Saman THRASHER. Wilfredo Shrestha DO PGY-1.
[2024-09-08] MEDS: ferumoxytoL (NON-ESRD) 510 MG in SODIUM CHLORIDE 0.9% 100 ML 234 MG IV (16:36)
[2024-09-08] MEDS: EPOETIN ALFA-EPBX INJ 10,000 UNIT/ML VIAL (ESRD) 10000 UNIT SC (16:53)
[2024-09-08] MEDS: SERTRALINE HCL 25 MG TABLET 50 MG PO (21:01)
[2024-09-08 21:04] LABS: Creatinine,Random Urine 59 mg/dL (30-125); Protein Total, Random Urine 36 mg/dL (1-14)
[2024-09-08] MEDS: INSULIN GLARGINE (Lantus) 5 UNIT/0.05 ML (PER 5 UNITS) 30 UNIT SC (21:31)
[2024-09-09] VITALS (13 sets, daily range): BP systolic 115–132; BP diastolic 49–75; PULSE 71–88; RESP 14–20; TEMP 35.9–36.6; O2SAT 94–99
[2024-09-09] MEDS: INSULIN LISPRO (AdmeLOG) 1 UNIT/0.01 ML UNIT SC ×2 (06:05→18:41)
[2024-09-09 06:15] LABS: Basophils # (Auto) 0.1 Thou/mm3 (0.0-0.2); Basophils % (Auto) 0 % (0-2.5); Eosinophils # (Auto) 0.0 Thou/mm3 (0.0-0.5); Eosinophils % (Auto) 0 % (0-10); Hematocrit 25.2 % (41.0-53.0); Immature Granulocytes Auto 0.68 Thou/mm3 (0.00-0.00); Lymphocytes # (Auto) 2.2 Thou/mm3 (1.0-4.8); Lymphocytes % (Auto) 14 % (10-50); Mean Corpuscular HGB Conc 32.5 g/dl (31.0-37.0); Mean Corpuscular Hemoglobin 29.0 pg (25.0-35.0); Mean Corpuscular Volume 89 fL (80-100); Monocytes # (Auto) 1.3 Thou/mm3 (0.0-0.8); Monocytes % (Auto) 8 % (0-12); Neutrophils # (Auto) 12.0 Thou/mm3 (1.8-7.7); Neutrophils % (Auto) 74 % (37-80); Nucleated Red Blood Cell # 0.00 Thou/mm3 (0.00-0.00); Nucleated Red Blood Cell % 0 /100 WBC (0); Platelet Count 468 Thou/mm3 (140-440); RDW Standard Deviation 49.6 fL (35.1-43.9); Red Blood Count 2.83 Miln/mm3 (4.50-5.90); White Blood Count 16.2 Thou/mm3 (3.8-10.6)
[2024-09-09 06:37] LABS: Hemoglobin 8.2 g/dL (13.5-16.0)
[2024-09-09 06:41] LABS: Alanine Aminotransferase 26 U/L (10-49); Albumin, Serum 2.5 gm/dL (3.4-4.8); Albumin/Globulin Ratio 1.0 (1.2-2.2); Alkaline Phosphatase 120 U/L (46-116); Anion Gap 8 (7-16); Aspartate Amino Transferase 19 U/L (0-34); BUN/Creatinine Ratio 38 Ratio (12-20); Bilirubin,Total 0.2 mg/dL (0.3-1.2); Blood Urea Nitrogen 53 mg/dL (9-23); Calcium 8.3 mg/dL (8.3-10.6); Calcium (Corrected) 9.5 mg/dL (8.5-10.1); Carbon Dioxide 27.5 mMol/L (20.0-31.0); Chloride 104 mMol/L (98-107); Creatinine (Component) 1.4 mg/dL (0.6-1.3); Estimated Creatinine Clearance 48.9 mL/min (>60); Globulin 2.4 gm/dL (2.3-3.5); Glucose 260 mg/dL (74-106); Osmolality,Calculated 300 (275-295); Potassium 4.5 mMol/L (3.4-5.1); Sodium 139 mMol/L (136-145); Total Protein 4.9 gm/dL (5.7-8.2); eGFR 53 See Note
--- NOTE | 2024-09-09 07:36 | PD.RESPRO ---
Documentation for date of: 09/09/24 Subjective Subjective Interval history: Patient is Russian-speaking and translated with the help of daughter- revenue settlements administrator Mr. Marc is a 74-year-old man with significant past medical history of longstanding hypertension, uncontrolled diabetes mellitus x years, dyslipidemia, diabetic neuropathy//CKD III- under my care, diabetic retinopathy, diabetic foot wound since early 2024- ( rt toe amputation, subsequently right metatarsal amputation-under wound care center with hyperbaric oxygen) no improvement presented to the emergency department with worsening of the wound on the right foot brought by the daughter. Denies fever, shortness of breath, nausea, vomiting, palpitations, or diarrhea. In the hospital patient was seen by Dr. Miller who did I&D with the purulent drainage. Blood sugars have been significantly elevated between 200-500 despite giving insulin and high doses. Patient on a consistent carb low diet. Medications and labs have been reviewed. Renal consultation requested for JULIO on CKD in the setting of poorly controlled diabetes. Past medical history: Hypertension, diabetes mellitus, dyslipidemia, diabetic neuropathy, diabetic retinopathy Past surgical history: CABG Social history: Denies smoking, alcohol, other illicit drug abuse 09/06/2024 WBC 31, hemoglobin 10.6, platelets 682. Sodium 136, potassium 4.2, BUN 36, creatinine 1.4, blood sugar 341, calcium 9.3, phosphorus 2.4, magnesium 2.1, LFTs normal, albumin 3.1, urinalysis shows significant proteinuria and glucosuria. Echocardiogram showed ejection fraction 55% peripheral arterial Doppler showed severe peripheral vascular disease. Venous Doppler showed no DVT in both legs foot MRI showed questionable early osteomyelitis. 09/08/2024 patient currently seen in medical floor. Sugar seems to be much better today. Insulin dose adjusted by primary team creatinine stable at 1.3. Had a long conversation with patient and family regarding right BKA for his right foot metatarsal stump infection. He seems to be in agreement. Conveyed the same to Dr. Miller and primary team. Blood pressure 119/67, blood sugar this morning was very low. WBC 20.8, hemoglobin 8.6, platelets 492. Albumin 2.6 09/09/2024: patient seen and examined at bedside, blood glucose 223 in the AM, insulin dose adjusted per primary team, Cr 1.4. , BUN 53 from 44. UOP 1400. plan for BKA or RLE today, NPO pending surgery with Dr. Miller, Exam Vital Signs Temp Pulse Resp BP Pulse Ox O2 Del Method O2 Flow Rate 97.0 F 73 17 119/75 94 L Room Air 6 09/09/24 04:00 09/09/24 04:00 09/09/24 04:00 09/09/24 04:00 09/09/24 04:00 09/09/24 04:00 09/04/24 12:30 Narrative Exam General: Awake and in no acute distress. Conversational and non-toxic appearing. Neurologic: Alert and oriented x3, no gross neurological deficit, HEENT: Normocephalic, atraumatic, mucous membranes moist. Heart: Regular rate and rhythm, normal S1 and S2, no murmurs. Lungs: Clear to auscultation bilaterally with no wheezing or crackles. Abdomen: Soft, nondistended, nontender, positive bowel sounds. No guarding or rebound tenderness. Extremities: No edema. Right foot partially amputated, bandaged. Skin: Warm. Dry. No rash or ecchymoses. Objective Labs 09/10/24 06:55 09/10/24 05:00 Labs: Laboratory Results - last 24 hr 09/08/24 09/09/24 17:59 05:12 WBC 16.2 H RBC 2.83 L Hgb 8.2 L Hct 25.2 L MCV 89 MCH 29.0 MCHC 32.5 RDW Std Deviation 49.6 H Plt Count 468 H Neut % (Auto) 74 Lymph % (Auto) 14 [place] % (Auto) 8 Eos % (Auto) 0 Baso % (Auto) 0 Neut # (Auto) 12.0 H Lymph # (Auto) 2.2 [place] # (Auto) 1.3 H Eos # (Auto) 0.0 Baso # (Auto) 0.1 Immature Gran # (Auto) 0.68 H Absolute Nucleated RBC 0.00 Immature Gran % 4 H Nucleated RBC % 0 Sodium 139 Potassium 4.5 D Chloride 104 Carbon Dioxide 27.5 Anion Gap 8 BUN 53 H Creatinine 1.4 H Estim Creat Clear Calc 48.9 L eGFR 53 L BUN/Creatinine Ratio 38 H Glucose 260 H D Calculated Osmolality 300 H Calcium 8.3 Corrected Calcium 9.5 Total Bilirubin 0.2 L AST 19 ALT 26 Alkaline Phosphatase 120 H Total Protein 4.9 L Albumin 2.5 L Globulin 2.4 Albumin/Globulin Ratio 1.0 L Ur Random Creatinine 59 U Random Total Protein 36 H Quality Measures Quality Measures sepsis Current suspected stage: ruled out Possible source: bone/joint, genitourinary and skin/soft tissue Blood cultures ordered: yes Antibiotic ordered: Yes Advance care planning discussed with:: patient Assessment & Plan Assessment Current Active Medications: Generic Name Dose Route Start Last Admin Trade Name Freq PRN Reason Stop Dose Admin Acetaminophen 650 mg 09/01/24 22:20 09/06/24 05:50 Acetaminophen 325 Mg Tablet PO 10/01/24 22:19 650 mg Q6H PRN Administration PAIN SCALE 1-3 (mild Amlodipine Besylate 10 mg 09/07/24 09:00 09/08/24 09:56 Amlodipine Besylate 5 Mg Tablet PO 10/07/24 08:59 10 mg QDAY ALEXIS Administration Aspirin 81 mg 09/02/24 09:00 09/07/24 09:33 Aspirin Ec 81 Mg Tabec PO 10/02/24 08:59 81 mg QDAY ALEXIS Administration Bisacodyl 5 mg 09/06/24 09:00 09/08/24 10:18 Bisacodyl 5 Mg Tabec PO 10/06/24 08:59 Not Given QDAY ALEXIS Protocol Bisacodyl 10 mg 09/05/24 22:02 09/05/24 22:29 Bisacodyl 10 Mg Supp MS 10/05/24 21:43 10 mg QDAY PRN Administration Constipation Protocol Dextrose 25 ml 09/03/24 11:13 09/06/24 20:55 Dextrose 50%-Water Inj 50 Ml Syringe IV 10/03/24 11:12 25 ml Q15MIN PRN Administration BG 50-70 responsive npo pt Dextrose 50 ml 09/03/24 11:13 Dextrose 50%-Water Inj 50 Ml Syringe IV 10/03/24 11:12 Q15MIN PRN BG <50 OR BG <70 & pt unresponsive Doxycycline Hyclate 100 mg 09/06/24 21:00 09/08/24 21:01 Doxycycline 100 Mg Tablet PO 09/13/24 20:59 100 mg BID ALEXIS Administration Finasteride 5 mg 09/02/24 09:00 09/08/24 09:57 Finasteride 5 Mg Tablet PO 10/02/24 08:59 5 mg QDAY ALEXIS Administration Glucagon 1 mg 09/03/24 11:13 Glucagon Inj 1 Mg Vial IM Q15MIN PRN BG <70, and no IV access Heparin Sodium (Porcine) 5,000 unit 09/02/24 09:00 09/08/24 21:05 Heparin Sod Inj 5000 Unit/Ml Vial SC 09/16/24 08:59 5,000 unit Q12HR ALEXIS Administration Ceftriaxone Sodium/Dextrose 2 gm in 50 mls @ 100 mls/hr 09/06/24 11:07 09/08/24 09:57 Rocephin/D5w 2gm IV 09/13/24 11:06 100 mls/hr QDAY ALEXIS Administration Insulin Glargine 30 unit 09/08/24 21:00 09/08/24 21:31 Insulin Glargine (Lantus) 5 Unit/0.05 Ml (Per 5 Units) SC 10/08/24 20:59 30 unit HS ALEXIS Administration Insulin Human Lispro 12 unit 09/07/24 11:30 09/07/24 11:55 Insulin Lispro (Admelog) 1 Unit/0.01 Ml Unit MS 10/07/24 11:29 12 unit AC ALEXIS Administration Insulin Human Lispro 0 unit 09/09/24 06:00 09/09/24 06:05 Insulin Lispro (Admelog) 1 Unit/0.01 Ml Unit SC 10/09/24 05:59 4 unit Q6HR ALEXIS Administration Protocol Lisinopril 40 mg 09/05/24 09:00 09/08/24 09:55 Lisinopril 20 Mg Tablet PO 10/05/24 08:59 40 mg QDAY ALEXIS Administration Metoclopramide HCl 10 mg 09/06/24 00:50 09/06/24 02:30 Metoclopramide Inj 5 Mg/Ml Vial 2 Ml IVP 10/06/24 00:49 10 mg Q8HR PRN Administration NAUSEA OR VOMITING Protocol Metronidazole 500 mg 09/06/24 14:00 09/09/24 05:59 Metronidazole 250 Mg Tablet PO 10/17/24 12:00 Not Given TID ALEXIS Ondansetron HCl 4 mg 09/06/24 11:00 Ondansetron Inj 2 Mg/Ml Inj 2 Ml IVP 10/06/24 10:59 Q6HR PRN NAUSEA OR VOMITING Protocol Sennosides 1 tab 09/01/24 22:20 09/05/24 05:23 Senna Tablet PO 10/01/24 22:19 1 tab QDAY PRN Administration constipation Protocol Sertraline HCl 50 mg 09/02/24 21:00 09/08/24 21:01 Sertraline Hcl 25 Mg Tablet PO 10/02/24 20:59 50 mg HS ALEXIS Administration Sitagliptin Phosphate 100 mg 09/08/24 09:00 09/08/24 09:56 Sitagliptin Phosphate 50 Mg Tablet PO 10/08/24 08:59 100 mg QDAY ALEXIS Administration Sodium Hypochlorite 473 ml 09/06/24 22:00 09/09/24 06:00 Sod Hypochlorite 1/4 Str 473 Ml Btl IRRIG 10/06/24 21:59 Not Given TID ALEXIS Plan Mr. Marc 74-year-old man with significant past medical history of longstanding hypertension, uncontrolled diabetes mellitus, dyslipidemia, diabetic neuropathy, diabetic retinopathy, diabetic foot presented to the hospital with a chief complaints of worsening of his wound on right foot stump, plan for R BKA with Dr. Miller. # JULIO on CKDIII. Creatinine markedly improved. Underlying CKD from diabetic nephropathy. Check urine protein/creatinine Gave iron, Procrit for anemia of chronic kidney disease # Diabetic right foot with Early osteomyelitis of the stump with PVD -Patient had history of chronic rt diabetic foot -Patient is following with the wound care -Patient noticed recent worsening of the wound with foul-smelling discharge from it since 4 days before the day of admission -Denies fever, nausea, vomiting, palpitations, shortness of breath Had a long conversation with the patient and daughter-might benefit from right BKA to avoid multiple surgeries due to his severe peripheral vascular disease. PLAN: - NPO pending BKA with Dr. Miller 09/09 # Uncontrolled diabetes mellitus A1c on 04/06/2024 is 13.1 A1c: 08/2024-A1c 8.6. sugars previously noted at 500 during this admission 8/4 AM gluc 223, -Patient is currently on insulin, managed per primary team Glargine 30 units QHS Lispro 4 units AC (held given pt is NPO pending BKA with Dr. Miller -Added Januvia (sitagliptan 100mg qd) -low-dose glipizide 5mg BID d/c per primary team, consider re-adding -Hypoglycemia protocol in place # History of hypertension -Blood pressure at the time of admission is 136/74 mmHg -Patient is using metoprolol and lisinopril at home Plan -Currently on amlodipine, lisinopril # History of CAD s/p CABG -Patient is using aspirin and atorvastatin at home. Aspirin held for surgery # Dyslipidemia -Lipid profile is within normal limits on 04/06/2024 -Patient is using statin at home Plan of care discussed with primary team Plan discussed with nephrology attending Dr. Sharon Villegas MD Internal Medicine PGY-1 Attending Provider Attestation/Addendum Patient seen and examined with resident physician Dr. Villegas. Note reviewed, agree with findings and recommendations. Patient comfortable. Will be going for right BKA today with Dr. Miller Blood sugars and blood pressure seems to be stable. Creatinine stable.
--- NOTE | 2024-09-09 08:42 | ESPR_ITS ---
<Statement entered by James Galindo MD - 09/18/24 14:32> I reviewed above note and agree with findings and plans. I have also personally examined the patient with medicine team and went over assessment and plan with medical team including industrial design intern and resident physician. <Statement entered by Aida Farr MD - 09/09/24 16:46> Pt is seen at bedside. Pt complains, appears to be doing well, feels a bit tired and complains of pain in his right foot. Pt is scheduled for right BKA today. W ill continue metronidazole, ceftriaxone, and doxycycline as per ID recommendations and will continue to monitor BG and adjust the insulin regimen as needed. Currently pt is on glargine 30units, Lispro 4 units with meals and Sitagliptin 100mg. Patient was seen and examined by me personally. I have directly supervised and reviewed documentation by the team resident and agree with its findings with the above exceptions/and additional findings. ------- Plan of care was discussed with the attending, Dr. Josie Farr, PGY-2 Documentation for date of: 09/09/24 Subjective Subjective Interval history: Overnight events: No acute events overnight. Patient was seen and examined at bedside. AM vitals and labs reviewed. Patient has no complaints at this time. Patient to have right BKA today, patient made NPO after midnight yesterday. Discussed with patient about his blood glucose and possibly changing his insulin regimen. Continuing metronidazole, ceftriaxone, and doxycycline. Review of systems otherwise negative except for what is mentioned above. Exam Vital Signs Temp Pulse Resp BP Pulse Ox O2 Del Method O2 Flow Rate 97.7 F 74 20 132/66 H 96 Room Air 6 09/09/24 08:00 09/09/24 08:00 09/09/24 08:00 09/09/24 08:00 09/09/24 08:00 09/09/24 08:00 09/04/24 12:30 Narrative Exam Physical Exam: General: Alert, no acute distress. Skin: Warm, dry, intact, no obvious rash. Head: Normocephalic, atraumatic. Eye: Normal conjunctiva, PERRL. Cardiovascular: Regular rate and rhythm, no murmur, +S1/S2. Respiratory: Lungs are clear to auscultation, respirations unlabored, no crackles, no wheezing. Gastrointestinal: Soft, nontender, non-distended. No guarding or rebound tenderness. Extremities: No edema, no cyanosis, no clubbing. 2+ radial pulse bilaterally. R ight foot wrapped tightly with bandages without signs of serosanguineous stains. Neuro: No focal deficits observed. Conversant, moving all extremities. No overt cerebellar signs/incoordination. Psychiatric: Cooperative, appropriate affect. Objective Labs 09/09/24 05:12 09/09/24 05:12 Labs: Laboratory Results - last 24 hr 09/08/24 09/09/24 17:59 05:12 WBC 16.2 H RBC 2.83 L Hgb 8.2 L Hct 25.2 L MCV 89 MCH 29.0 MCHC 32.5 RDW Std Deviation 49.6 H Plt Count 468 H Neut % (Auto) 74 Lymph % (Auto) 14 [place] % (Auto) 8 Eos % (Auto) 0 Baso % (Auto) 0 Neut # (Auto) 12.0 H Lymph # (Auto) 2.2 [place] # (Auto) 1.3 H Eos # (Auto) 0.0 Baso # (Auto) 0.1 Immature Gran # (Auto) 0.68 H Absolute Nucleated RBC 0.00 Immature Gran % 4 H Nucleated RBC % 0 Sodium 139 Potassium 4.5 D Chloride 104 Carbon Dioxide 27.5 Anion Gap 8 BUN 53 H Creatinine 1.4 H Estim Creat Clear Calc 48.9 L eGFR 53 L BUN/Creatinine Ratio 38 H Glucose 260 H D Calculated Osmolality 300 H Calcium 8.3 Corrected Calcium 9.5 Total Bilirubin 0.2 L AST 19 ALT 26 Alkaline Phosphatase 120 H Total Protein 4.9 L Albumin 2.5 L Globulin 2.4 Albumin/Globulin Ratio 1.0 L Ur Random Creatinine 59 U Random Total Protein 36 H Quality Measures Quality Measures sepsis Current suspected stage: sepsis Possible source: bone/joint, genitourinary and skin/soft tissue Blood cultures ordered: yes Antibiotic ordered: Yes Advance care planning discussed with:: patient Assessment & Plan Assessment Current Active Medications: Generic Name Dose Route Start Last Admin Trade Name Freq PRN Reason Stop Dose Admin Acetaminophen 650 mg 09/01/24 22:20 09/06/24 05:50 Acetaminophen 325 Mg Tablet PO 10/01/24 22:19 650 mg Q6H PRN Administration PAIN SCALE 1-3 (mild Amlodipine Besylate 10 mg 09/07/24 09:00 09/08/24 09:56 Amlodipine Besylate 5 Mg Tablet PO 10/07/24 08:59 10 mg QDAY ALEXIS Administration Aspirin 81 mg 09/02/24 09:00 09/07/24 09:33 Aspirin Ec 81 Mg Tabec PO 10/02/24 08:59 81 mg QDAY ALEXIS Administration Bisacodyl 5 mg 09/06/24 09:00 09/08/24 10:18 Bisacodyl 5 Mg Tabec PO 10/06/24 08:59 Not Given QDAY ALEXIS Protocol Bisacodyl 10 mg 09/05/24 22:02 09/05/24 22:29 Bisacodyl 10 Mg Supp WV 10/05/24 21:43 10 mg QDAY PRN Administration Constipation Protocol Dextrose 25 ml 09/03/24 11:13 09/06/24 20:55 Dextrose 50%-Water Inj 50 Ml Syringe IV 10/03/24 11:12 25 ml Q15MIN PRN Administration BG 50-70 responsive npo pt Dextrose 50 ml 09/03/24 11:13 Dextrose 50%-Water Inj 50 Ml Syringe IV 10/03/24 11:12 Q15MIN PRN BG <50 OR BG <70 & pt unresponsive Doxycycline Hyclate 100 mg 09/06/24 21:00 09/08/24 21:01 Doxycycline 100 Mg Tablet PO 09/13/24 20:59 100 mg BID ALEXIS Administration Finasteride 5 mg 09/02/24 09:00 09/08/24 09:57 Finasteride 5 Mg Tablet PO 10/02/24 08:59 5 mg QDAY ALEXIS Administration Glucagon 1 mg 09/03/24 11:13 Glucagon Inj 1 Mg Vial IM Q15MIN PRN BG <70, and no IV access Heparin Sodium (Porcine) 5,000 unit 09/02/24 09:00 09/09/24 08:02 Heparin Sod Inj 5000 Unit/Ml Vial SC 09/16/24 08:59 Not Given Q12HR ALEXIS Ceftriaxone Sodium/Dextrose 2 gm in 50 mls @ 100 mls/hr 09/06/24 11:07 09/08/24 09:57 Rocephin/D5w 2gm IV 09/13/24 11:06 100 mls/hr QDAY ALEXIS Administration Insulin Glargine 30 unit 09/08/24 21:00 08/03/25 21:31 Insulin Glargine (Lantus) 5 Unit/0.05 Ml (Per 5 Units) SC 10/08/24 20:59 30 unit HS ALEXIS Administration Insulin Human Lispro 0 unit 09/09/24 06:00 09/09/24 06:05 Insulin Lispro (Admelog) 1 Unit/0.01 Ml Unit SC 10/09/24 05:59 4 unit Q6HR ALEXIS Administration Protocol Insulin Human Lispro 4 unit 09/09/24 11:30 Insulin Lispro (Admelog) 1 Unit/0.01 Ml Unit SC 10/09/24 11:29 AC ALEXIS Lisinopril 40 mg 09/05/24 09:00 09/08/24 09:55 Lisinopril 20 Mg Tablet PO 10/05/24 08:59 40 mg QDAY ALEXIS Administration Metoclopramide HCl 10 mg 09/06/24 00:50 09/06/24 02:30 Metoclopramide Inj 5 Mg/Ml Vial 2 Ml IVP 10/06/24 00:49 10 mg Q8HR PRN Administration NAUSEA OR VOMITING Protocol Metronidazole 500 mg 09/06/24 14:00 09/09/24 05:59 Metronidazole 250 Mg Tablet PO 10/17/24 12:00 Not Given TID ALEXIS Ondansetron HCl 4 mg 09/06/24 11:00 Ondansetron Inj 2 Mg/Ml Inj 2 Ml IVP 10/06/24 10:59 Q6HR PRN NAUSEA OR VOMITING Protocol Sennosides 1 tab 09/01/24 22:20 09/05/24 05:23 Senna Tablet PO 10/01/24 22:19 1 tab QDAY PRN Administration constipation Protocol Sertraline HCl 50 mg 09/02/24 21:00 09/08/24 21:01 Sertraline Hcl 25 Mg Tablet PO 10/02/24 20:59 50 mg HS ALEXIS Administration Sitagliptin Phosphate 100 mg 09/08/24 09:00 09/08/24 09:56 Sitagliptin Phosphate 50 Mg Tablet PO 10/08/24 08:59 100 mg QDAY ALEXIS Administration Sodium Hypochlorite 473 ml 09/06/24 22:00 09/09/24 06:00 Sod Hypochlorite 1/4 Str 473 Ml Btl IRRIG 10/06/24 21:59 Not Given TID ALEXIS Plan Mr. Marc is a 74 year old gentleman with a past history of PAD, HTN, T2DM, HLD, and s/p amputation of right metatarsals who presented to the ED with concerns of generalized weakness and AMS. The patient was admitted for sepsis management due to osteomyelitis of right foot and urinary tract infection. #Right foot osteomyelitis at right transmetatarsal amuptation site #s/p right transmetatarsal amputation #Sepsis (resolving) #SIRs Criteria (resolving) #R. Plantar Edema (resolved) #Eschar of right heel (resolved) #Leukocytosis (resolving) Patient had difficulty healing his right foot after toe amputation to metatarsals about 2 months ago. The poor healing was likely due to the patient's history of peripheral artery disease. The patient presented with fever of 103.8, heart rate 112, and WBC 23.2 in the ED with source of infection (right foot) and evidence of endorgan damage in elevated creatinine. Foot x-ray done in ED showed cortical bone destruction of distal metatarsals in right foot, further suggesting osteomyelitis. Active pus in right foot, black escar of right heel, and erythematous right foot support signs of active infection in patient. qSofa 1 w/ end organ damage JULIO on CKD and lactic acid. Patient had a temperature of 103.8F, HR of 112, RR of 22, and WBC of 23.2 ED prior to admission to [facility]. This satisfies all 4 elements of SIRS criteria. Initially the patient's active source of infection is right TMA stump and UTI, along with lactic acidosis of 5.3 on 09/02/24. This fits criteria of sepsis [SIRS + source + lactic acidosis] but without septic shock due to mostly elevated BP throughout stay. ? Current antibiotic(s): Cephalexin 1 gm TID [09/09-09/12] ? Previous antibiotic(s): ? Metronidazole 500 mg TID [09/06-09/09] ? Doxycycline 100 mg BID [09/06-09/09] ? Ceftriaxone 2 gm daily [09/02-09/09] ? Vancomycin [09/02-09/06] ? Piperacillin/tazobactam [09/02-09/06] ? Blood cultures x 2 drawn 09/01; no growth after 5 days ? Right foot wound culture collected 09/02 ? Preliminary results 09/03: Gram-positive cocci [empiric antibiotic coverage: Piperacillin/tazobactam & vancomycin] ? Results 09/05: Micrococcus and related genera ? Foot x-ray 09/01 and foot MRI 09/02 support osteomyelitis at transmetatarsal amputation site ? General Surgery Consulted, Dr. Miller, appreciate recommendations ? I&D performed 09/04, initially planned for wound vac 09/09, but family decided to pursue right BKA ? Right BKA planned for 09/09 ? Cardiology consulted for surgery clearance, appreciate recommendations ? Infectious disease Consulted, Dr. Blankenship, appreciate recommendations ? ID recommends treatment through 10/17 with p.o. Flagyl 500mg TID, p.o. doxycycline 100mg BID, and IV Rocephin 2gm daily. ? Ordered ESR and CRP 09/06 for uptrending WBC #Urinary tract infection (E. Coli) Patient had urinalysis performed in ED, which showed WBC 134 with 4+ bacteria, positive urine nitrate, 3+ glucose, and 1+ protein. Due to patient's altered mental status, will monitor and manage with antibiotic treatment. ? Initially managed with ceftriaxone started on 09/01, swap to piperacillin/tazobactam on 09/02, stopped piperacillin/tazobactam 09/06 ? Will monitor progression with CBC and daily examinations ? Urine culture taken on 09/01 shows E. coli, management w/ Rocephin per ID recommendations #JULIO on CKD, likely secondary to sepsis vs dehydration (resolving) #Metabolic Acidosis, anion gap, secondary to Lactic Acidosis (resolved) Patient presented with BUN 35, creatinine 1.4, GFR 53. Possible explanations as to why include decreased blood flow due to sepsis from patient's osteomyelitis and/or urinary tract infection or decreased fluid intake due to altered mental status. Patient has slightly decreased bicarb at 19.6 with an anion gap, likely due to elevated lactic acid at 5.3. ? Will monitor with daily renal panel ? IV hydration with NS due to worsening of renal function 09/05 ? Will renally dose medication and avoid nephrotoxic medication ? Consulted nephrology, appreciate recommendations #Primary Hypertension Patient has a history of hypertension and initial vitals taken in the ED showed blood pressure of 160/80. ? Restarted patient's home lisinopril 40 mg daily further improvement of JULIO noted on 09/04 ? Increased amlodipine to 10 mg daily #Anemia of chronic disease #In the setting of CKD Patient had decreased H&H of 10.3/31.6 with MCV of 90. Iron panel abnormal with iron at 12, UIBC 134, iron saturation 8%, ferritin 726. Plan ? No iron tablets, given concern for sepsis ? Will monitor with daily CBC ? Will transfuse if hemoglobin drops below 7 per protocol #Hyperglycemia #Insulin dependent Type 2 diabetes mellitus #Diabetic neuropathy Patient has reported history of type 2 diabetes mellitus and diabetic neuropathy that likely led to transmetatarsal amputation. Home glargine 20 units, Glipizide, and Januvia. Plan ? Decrease glargine from 40 units daily to 30 units at night starting 09/08 ######### ? Hold mealtime insulin 09/07 due to concerns of hypoglycemia ############# ? Continue to monitor fasting blood glucose ? Patient had episodes of hyperglycemia after I&D on 09/04, educated patient on the importance of not consuming outside hospital food while inpatient ? Nephrology restarted patient's home Januvia and Ozempic ? Continue to hold home glipizide #Hyperlipidemia #History of peripheral artery disease #History of thrombus in RLE Patient was reported to have a history of hyperlipidemia on home atorvastatin 20 mg. Patient's family reports that the patient received surgical care at [facility] in [place], [place] as they have specialists to manage peripheral artery disease in patients who require amputations in the lower extremities. 1+ pedal pulse noted in bilateral lower extremities. Likely a contributor to poor wound healing post transmetatarsal amputation, which likely contributed to infection that led to osteomyelitis. ? Held home atorvastatin 20 mg ? US LE veins 09/02 negative for DVT ? US LE arteries positive for right popliteal monophasic flow and left posterior tibial artery monophasic flow, but left and right ENRRIQUE greater than 0.9 #Hypophosphatemia (resolved) Patient had phosphorus of 2.1 on 08/25 9 AM labs. ? Ordered potassium phosphate packet [Neutra-Phos] one-time dose 09/03 ? Will monitor with a.m. phosphorus levels #Thrombocytosis (resolved) Patient has elevated platelet count at 509 on 09/02 likely reactive secondary to acute infection. ? Will monitor with daily CBC #Constipation (resolved) Patient has bowel movements every few days per family members. Patient responds well to home bisacodyl 5mg PRN. ? Continue bisacodyl 10 mg daily ? Ordered docusate 100 mg, senna/docusate tablet, warm water enema, and glycerin suppository one-time doses to encourage bowel movement on 09/06 #Hypomagnesemia (resolved) Patient had magnesium of 1.4 on 09/04. ? Ordered magnesium repletion with 2 gm magnesium sulfate IV once 09/04 and start 400 mg magnesium oxide daily. Stopped on 09/08. DVT Prophylaxis: Heparin GI Prophylaxis: N/A Diet: NPO [place]: Yes Lines: Peripheral IV Antibiotics: Cephalexin Code Status: FULL Reason for Hospitalization: Sepsis due to osteomyelitis and UTI Other Barriers to Discharge: Pending right BKA by General Surgery & [facility] orders Patient plan of care was discussed with the senior resident Dr. Farr (PGY-2) and attending physician Dr. Galindo. Mando Lima, PGY1
[2024-09-09] MEDS: cefTRIAXone/D5w 2gm 2 GM/50 ML BAG IV (09:12)
[2024-09-09] MEDS: FINASTERIDE 5 MG TABLET PO (09:14)
[2024-09-09] MEDS: DOXYCYCLINE 100 MG TABLET PO (09:14)
--- NOTE | 2024-09-09 10:29 | ESPR_ITS ---
Subjective Subjective Interval history: additional surgery planned. ok for all po regimen of keflex 1000 tid for 3 days after amputation Exam Vital Signs Temp Pulse Resp BP Pulse Ox O2 Del Method O2 Flow Rate 97.7 F 74 20 132/66 H 96 Room Air 6 09/09/24 08:00 09/09/24 09:13 09/09/24 08:00 09/09/24 09:13 09/09/24 08:00 09/09/24 08:00 09/04/24 12:30 Narrative Exam limited visit. Objective - Internal Medicine Labs 09/09/24 05:12 09/09/24 05:12 Labs: Laboratory Results - last 24 hr 09/08/24 09/09/24 09/09/24 17:59 05:12 09:10 WBC 16.2 H RBC 2.83 L Hgb 8.2 L Hct 25.2 L MCV 89 MCH 29.0 MCHC 32.5 RDW Std Deviation 49.6 H Plt Count 468 H Neut % (Auto) 74 Lymph % (Auto) 14 [place] % (Auto) 8 Eos % (Auto) 0 Baso % (Auto) 0 Neut # (Auto) 12.0 H Lymph # (Auto) 2.2 [place] # (Auto) 1.3 H Eos # (Auto) 0.0 Baso # (Auto) 0.1 Immature Gran # (Auto) 0.68 H Absolute Nucleated RBC 0.00 Immature Gran % 4 H Nucleated RBC % 0 Sodium 139 Potassium 4.5 D Chloride 104 Carbon Dioxide 27.5 Anion Gap 8 BUN 53 H Creatinine 1.4 H Estim Creat Clear Calc 48.9 L eGFR 53 L BUN/Creatinine Ratio 38 H Glucose 260 H D Calculated Osmolality 300 H Calcium 8.3 Corrected Calcium 9.5 Total Bilirubin 0.2 L AST 19 ALT 26 Alkaline Phosphatase 120 H Total Protein 4.9 L Albumin 2.5 L Globulin 2.4 Albumin/Globulin Ratio 1.0 L Ur Random Creatinine 59 U Random Total Protein 36 H Blood Type O Positive Antibody Screen NEGATIVE Crossmatch See Detail Blood Bank Wristband ID Yes Assessment & Plan A&P Narrative leucocytosis and presumptive osteomyelitis of rt foot with anaerobic bacteremia noted to have bka per notes hld by meds dm II, htn by meds bph by meds if pt has bka, then 3 days of keflex 1000 tid ok with me. will see again prn Time Spent With Patient Time: Total time spent is greater than 50% in coordination of care (as documented) at patient's floor/unit and/or counseling patient:
--- NOTE | 2024-09-09 10:47 | PC.WOUND ---
Home wound vac order/authorization process canceled due to pending BKA
--- NOTE | 2024-09-09 11:54 | PC.SS ---
SS update: Right BKA amputation Dr. Graff.
--- NOTE | 2024-09-09 14:35 | PC.SS ---
Rounding note: BKA, will need rehab after.
--- NOTE | 2024-09-09 17:37 | PD.SUROPNT ---
Date of Procedure 09/09/24 Pre Op Diagnosis Osteomyelitis of the right TMA stump Post Op Diagnosis Same Procedure Right below-knee amputation Findings Infected TMA stump Procedure Description After discussion of risks and benefits with patient and family, patient was brought to the operating room, and SCD was placed on the left and a block was performed by anesthesia. Patient was given sedation and the right lower extremity was prepped and draped in usual sterile fashion. After timeout the planned incisions were marked. The anterior flap was marked out 10 cm distal to the knee, and at this level the circumference of the leg was measured to be approximately 30 cm. As such the posterior flap length was measured to be 16 cm (half of the diameter + 1cm). The anterior incision was made with a #10 blade and the anterior compartment muscles were divided with electrocautery. The tibia and fibula were cleared of their attached tissues and the tibia was transected 1 cm proximal to the skin flap with a power saw. The fibula was then transected 1 cm proximal to the tibia. The nerve was placed on traction, ligated and divided sharply and allowed to retract. The remaining tissues holding the specimen were divided using electrocautery and hemostasis was achieved throughout this process using combination of electrocautery and silk ties. The specimen was sent off and the posterior flap was debulked using electrocautery. The wound was then closed using interrupted 2-0 Vicryl sutures and the skin was reinforced with johnathan. The wound was covered with fluffs and 2 Kerlix rolls which were secured with tape. Patient was awoken and brought to PACU in stable condition Pathology / specimen Other (Right lower extremity) Estimated Blood Loss 250 Surgeon Hollie Miller MD Surgical Staff Operation Date: 09/09/24 15:15 Case Staff Anesthesiologist: Eran Viera RNdirector of procurement: Gabriella Cárdenas
--- NOTE | 2024-09-09 18:10 | SUR.PHASEI ---
1738: pt arrived to PACU via gurney with nasal airway in place, breathing unlabored, dressing to right lower extremity clean, dry, and intact, report from Erin ROACH and Dr Viera 180: pt awake, alert, able to follow commands, breathing unlabored, dressing to right lower extremity clean, dry, and intact, VS stable, pt denies pain, report called to Jacquelin ROACH 181: pt transferred to room at this time
--- NOTE | 2024-09-09 20:27 | ESPR_ITS ---
<Statement entered by Murali Davison MD - 09/11/24 18:17> I personally examined the patient evaluated with the resident physician PGY [address] Dr. Shrestha and PGY 2 patient appears to be clinically stable underwent BKA below the knee amputation successfully with no complications tolerating well no evidence of heart failure shortness of breath or chest pain. Continue to monitor for any signs and symptoms of angina or shortness of breath. <Statement entered by Carlotta De Luna MD - 09/10/24 09:14> This is a 74-year-old male with PMHx significant for hypertension, uncontrolled type 2 diabetes, diabetic neuropathy hyperlipidemia, PAD, CAD status post bypass graft surgery and stents admitted for osteomyelitis of right foot and urinary tract infection. Has has been assessed and cleared for surgical intervention. Completed uncomplicated BKA or RLE. Remains hemodynamically stable. post-op. I?ve reviewed the note and agree with the resident's assessment and plan, with the exceptions outlined above. I personally went over the labs, imaging, home medications, and prior records, and examined the patient. The case was also reviewed with the attending physician. Please note: this document was transcribed using voice recognition technology; minor inaccuracies may be present. Carlotta De Luna DO PGY II Documentation for date of: 09/09/24 Subjective Subjective Interval history: The patient was in surgery for below knee amputation when the cardiology team came to round. Patient was not physically seen in person today. Vitals were reviewed. Leukocytosis continues to downtrend. Patient was slightly hypothermic but temperature corrected, likely a faulty read. No changes to cardiac regimen today. Exam Vital Signs Temp Pulse Resp BP Pulse Ox O2 Del Method O2 Flow Rate 97.0 F 82 16 127/69 97 Nasal Cannula 2 09/09/24 20:00 09/09/24 20:00 09/09/24 20:00 09/09/24 20:00 09/09/24 20:00 09/09/24 20:00 09/09/24 20:00 Narrative Exam Patient was in surgery, no physical exam was performed. Objective Labs 09/10/24 06:55 09/10/24 05:00 Labs: Laboratory Results - last 24 hr 09/08/24 09/09/24 09/09/24 17:59 05:12 09:10 WBC 16.2 H RBC 2.83 L Hgb 8.2 L Hct 25.2 L MCV 89 MCH 29.0 MCHC 32.5 RDW Std Deviation 49.6 H Plt Count 468 H Neut % (Auto) 74 Lymph % (Auto) 14 Churchill % (Auto) 8 Eos % (Auto) 0 Baso % (Auto) 0 Neut # (Auto) 12.0 H Lymph # (Auto) 2.2 Churchill # (Auto) 1.3 H Eos # (Auto) 0.0 Baso # (Auto) 0.1 Immature Gran # (Auto) 0.68 H Absolute Nucleated RBC 0.00 Immature Gran % 4 H Nucleated RBC % 0 Sodium 139 Potassium 4.5 D Chloride 104 Carbon Dioxide 27.5 Anion Gap 8 BUN 53 H Creatinine 1.4 H Estim Creat Clear Calc 48.9 L eGFR 53 L BUN/Creatinine Ratio 38 H Glucose 260 H D Calculated Osmolality 300 H Calcium 8.3 Corrected Calcium 9.5 Total Bilirubin 0.2 L AST 19 ALT 26 Alkaline Phosphatase 120 H Total Protein 4.9 L Albumin 2.5 L Globulin 2.4 Albumin/Globulin Ratio 1.0 L Ur Random Creatinine 59 U Random Total Protein 36 H Blood Type O Positive Antibody Screen NEGATIVE Crossmatch See Detail Blood Bank Wristband ID Yes Quality Measures Quality Measures sepsis Current suspected stage: ruled out Possible source: bone/joint, genitourinary and skin/soft tissue Blood cultures ordered: yes Antibiotic ordered: Yes Advance care planning discussed with:: patient Assessment & Plan Assessment Current Active Medications: Generic Name Dose Route Start Last Admin Trade Name Freq PRN Reason Stop Dose Admin Acetaminophen 650 mg 09/01/24 22:20 09/06/24 05:50 Acetaminophen 325 Mg Tablet PO 10/01/24 22:19 650 mg Q6H PRN Administration PAIN SCALE 1-3 (mild Acetaminophen 650 mg 09/09/24 20:24 Acetaminophen 325 Mg Tablet PO 10/09/24 20:23 Q4HR PRN PAIN SCALE 1-3 (mild Amlodipine Besylate 10 mg 09/07/24 09:00 09/09/24 09:13 Amlodipine Besylate 5 Mg Tablet PO 10/07/24 08:59 10 mg QDAY ALEXIS Administration Aspirin 81 mg 09/02/24 09:00 09/07/24 09:33 Aspirin Ec 81 Mg Tabec PO 10/02/24 08:59 81 mg QDAY ALEXIS Administration Bisacodyl 5 mg 09/06/24 09:00 09/09/24 09:14 Bisacodyl 5 Mg Tabec PO 10/06/24 08:59 5 mg QDAY ALEXIS Administration Protocol Cephalexin HCl 1,000 mg 09/09/24 14:00 09/09/24 13:23 Cephalexin 250 Mg Capsule PO 09/12/24 13:00 1,000 mg TID ALEXIS Administration Dextrose 25 ml 09/03/24 11:13 09/06/24 20:55 Dextrose 50%-Water Inj 50 Ml Syringe IV 10/03/24 11:12 25 ml Q15MIN PRN Administration BG 50-70 responsive npo pt Dextrose 50 ml 09/03/24 11:13 Dextrose 50%-Water Inj 50 Ml Syringe IV 10/03/24 11:12 Q15MIN PRN BG <50 OR BG <70 & pt unresponsive Finasteride 5 mg 09/02/24 09:00 09/09/24 09:14 Finasteride 5 Mg Tablet PO 10/02/24 08:59 5 mg QDAY ALEXIS Administration Glucagon 1 mg 09/03/24 11:13 Glucagon Inj 1 Mg Vial IM Q15MIN PRN BG <70, and no IV access Heparin Sodium (Porcine) 5,000 unit 09/02/24 09:00 09/09/24 08:02 Heparin Sod Inj 5000 Unit/Ml Vial SC 09/16/24 08:59 Not Given Q12HR [facility] Insulin Glargine 30 unit 09/08/24 21:00 09/08/24 21:31 Insulin Glargine (Lantus) 5 Unit/0.05 Ml (Per 5 Units) SC 10/08/24 20:59 30 unit HS [facility] Administration Insulin Human Lispro 4 unit 09/09/24 11:30 09/09/24 18:22 Insulin Lispro (Admelog) 1 Unit/0.01 Ml Unit SC 10/09/24 11:29 Not Given AC [facility] Insulin Human Lispro 0 unit 09/09/24 21:00 Insulin Lispro (Admelog) 1 Unit/0.01 Ml Unit SC 10/09/24 20:59 ACHS [facility] Protocol Lisinopril 40 mg 09/05/24 09:00 09/09/24 09:13 Lisinopril 20 Mg Tablet PO 10/05/24 08:59 40 mg QDAY ALEXIS Administration Metoclopramide HCl 10 mg 09/06/24 00:50 09/06/24 02:30 Metoclopramide Inj 5 Mg/Ml Vial 2 Ml IVP 10/06/24 00:49 10 mg Q8HR PRN Administration NAUSEA OR VOMITING Protocol Morphine Sulfate 1 mg 09/09/24 20:24 Morphine Sulf Inj 10 Mg/Ml Vial IVP 09/14/24 20:23 Q3HR PRN PAIN SCALE 7-10 (Severe Ondansetron HCl 4 mg 09/06/24 11:00 Ondansetron Inj 2 Mg/Ml Inj 2 Ml IVP 10/06/24 10:59 Q6HR PRN NAUSEA OR VOMITING Protocol Oxycodone/Acetaminophen 1 tab 09/09/24 20:24 Oxycodone/Apap 5/325 Tablet PO 09/14/24 20:23 Q6HR PRN PAIN SCALE 7-10 (Severe Sennosides 1 tab 09/01/24 22:20 09/05/24 05:23 Senna Tablet PO 10/01/24 22:19 1 tab QDAY PRN Administration constipation Protocol Sertraline HCl 50 mg 09/02/24 21:00 09/08/24 21:01 Sertraline Hcl 25 Mg Tablet PO 10/02/24 20:59 50 mg HS ALEXIS Administration Sitagliptin Phosphate 100 mg 09/08/24 09:00 09/09/24 09:14 Sitagliptin Phosphate 50 Mg Tablet PO 10/08/24 08:59 100 mg QDAY ALEXIS Administration Plan Mr. Marc is a 74-year-old male with past medical history significant for hypertension, uncontrolled type 2 diabetes, diabetic neuropathy hyperlipidemia, PAD, CAD status post bypass graft surgery and stents presented to the ED due to somnolence and generalized weakness. Upon hospitalization patient was also noted to have erythematous and right foot swelling. Cardiology is consulted for cardiac clearance for excisional debridement of the left foot with possible below-knee amputation. #CAD status post PCI and bypass #Primary Hypertension -Patient did have a history of stent in the RCA by another bucket turner and a bypass graft of the LAD prior to 2020 (patient is a bad historian and unable to provide much detailed history regarding this procedure) -Patient underwent left heart cardiac catheterization with Dr. Davison in 2020 and was found to have multivessel disease and was recommended to undergo medical management and angioplasty at possibly stents in the LAD and the distal posterior descending branch of the right coronary artery. - Echo done on 09/03: Normal LV size and function. Estimated EF at 55 %. There is grade I diastolic dysfunction. The RV is normal in size and systolic function. Mild MAC. Trace MR and TR. Aortic valve sclerosis. Plan: - Continue amlodipine ad lisinopril for HTN - Patient will need close follow-up with bucket turner outpatient and will possibly need another angiogram at some point since he has history of multi- vessel disease #Peripheral artery disease #Hyperlipidemia -Pt has hx of hyperlipidemia and takes atorvastatin 20 mg daily. Patient also has PAD which has complicated his surgical healing in the right foot. US LE veins 09/02 negative for DVT US LE arteries positive for right popliteal monophasic flow and left posterior tibial artery monophasic flow, but left and right ENRRIQUE greater than 0.9 - Lipid panel from April 08, 2024: Cholesterol 117, LDL 62, HDL 52, triglycerides 97 - Review of the popliteal artery duplex showed monophasic adequate flow, will discuss with general surgery regarding below-knee amputation. Plan: - Recommend continuing home atorvastatin - Recommend continuing aspirin 81 mg daily, amlodipine, and lisinopril. 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 Plantar Edema #Eschar of right heel #Leukocytosis #E. Coli Urinary tract infection #JULIO on CKD, likely secondary to sepsis vs dehydration #Metabolic Acidosis, anion gap, secondary to Lactic Acidosis #Anemia of chronic disease #Hyperglycemia #Type 2 diabetes mellitus on insulin #Diabetic neuropathy -management as per primary team Patient was seen and discussed with my attending physician Dr. Saman THRASHER. Wilfredo Shrestha DO PGY-1.
[2024-09-09] MEDS: SERTRALINE HCL 25 MG TABLET 50 MG PO (21:04)
[2024-09-09] MEDS: INSULIN GLARGINE (Lantus) 5 UNIT/0.05 ML (PER 5 UNITS) 30 UNIT SC (21:05)
[2024-09-10] VITALS (9 sets, daily range): BP systolic 106–132; BP diastolic 55–84; PULSE 63–87; RESP 13–20; TEMP 36.1–36.6; O2SAT 96–100; BMI 28.0; BMI 12.0
[2024-09-10 06:23] LABS: Alanine Aminotransferase 28 U/L (10-49); Albumin, Serum 2.6 gm/dL (3.4-4.8); Albumin/Globulin Ratio 1.0 (1.2-2.2); Alkaline Phosphatase 120 U/L (46-116); Anion Gap 11 (7-16); Aspartate Amino Transferase 26 U/L (0-34); BUN/Creatinine Ratio 23 Ratio (12-20); Bilirubin,Total 0.2 mg/dL (0.3-1.2); Blood Urea Nitrogen 27 mg/dL (9-23); Calcium 8.1 mg/dL (8.3-10.6); Calcium (Corrected) 9.2 mg/dL (8.5-10.1); Carbon Dioxide 23.9 mMol/L (20.0-31.0); Chloride 104 mMol/L (98-107); Creatinine (Component) 1.2 mg/dL (0.6-1.3); Estimated Creatinine Clearance 57.1 mL/min (>60); Globulin 2.5 gm/dL (2.3-3.5); Glucose 358 mg/dL (74-106); Osmolality,Calculated 296 (275-295); Potassium 4.8 mMol/L (3.4-5.1); Sodium 139 mMol/L (136-145); Total Protein 5.1 gm/dL (5.7-8.2); eGFR > 60 See Note
--- NOTE | 2024-09-10 07:12 | ESPR_ITS ---
Documentation for date of: 09/10/24 Subjective Subjective Interval history: Patient is [place]-speaking and translated with the help of daughter- production supv Mr. Marc is a 74-year-old man with significant past medical history of longstanding hypertension, uncontrolled diabetes mellitus x years, dyslipidemia, diabetic neuropathy//CKD III- under my care, diabetic retinopathy, diabetic foot wound since early 2024- ( rt toe amputation, subsequently right metatarsal amputation-under wound care center with hyperbaric oxygen) no improvement presented to the emergency department with worsening of the wound on the right foot brought by the daughter. Denies fever, shortness of breath, nausea, vomiting, palpitations, or diarrhea. In the hospital patient was seen by Dr. Miller who did I&D with the purulent drainage. Blood sugars have been significantly elevated between 200-500 despite giving insulin and high doses. Patient on a consistent carb low diet. Medications and labs have been reviewed. Renal consultation requested for JULIO on CKD in the setting of poorly controlled diabetes. Past medical history: Hypertension, diabetes mellitus, dyslipidemia, diabetic neuropathy, diabetic retinopathy Past surgical history: CABG Social history: Denies smoking, alcohol, other illicit drug abuse 09/06/2024 WBC 31, hemoglobin 10.6, platelets 682. Sodium 136, potassium 4.2, BUN 36, creatinine 1.4, blood sugar 341, calcium 9.3, phosphorus 2.4, magnesium 2.1, LFTs normal, albumin 3.1, urinalysis shows significant proteinuria and glucosuria. Echocardiogram showed ejection fraction 55% peripheral arterial Doppler showed severe peripheral vascular disease. Venous Doppler showed no DVT in both legs foot MRI showed questionable early osteomyelitis. 09/08/2024 patient currently seen in medical floor. Sugar seems to be much better today. Insulin dose adjusted by primary team creatinine stable at 1.3. Had a long conversation with patient and family regarding right BKA for his right foot metatarsal stump infection. He seems to be in agreement. Conveyed the same to Dr. Miller and primary team. Blood pressure 119/67, blood sugar this morning was very low. WBC 20.8, hemoglobin 8.6, platelets 492. Albumin 2.6 09/09/2024: patient seen and examined at bedside, blood glucose 223 in the AM, insulin dose adjusted per primary team, Cr 1.4. , BUN 53 from 44. UOP 1400. plan for BKA or RLE today, NPO pending surgery with Dr. Miller 09/10/2024: Patient seen and examined at bedside, blood glucose 330 in the AM, patient received 30 units glargine at bedtime yesterday. primary team will restart DM medications. patient is s/p Right BKA with Dr. Miller. patient reports no fevers, chills, pain. pending discharge likely tomorrow per Dr. Miller, dressing change tomorrow. ID consulted, per Dr. Blankenship, ok for all po regimen of keflex 1000 tid for 3 days after amputation Exam Vital Signs Temp Pulse Resp BP Pulse Ox O2 Del Method O2 Flow Rate 97.0 F 63 18 122/84 100 Nasal Cannula 2 09/10/24 04:00 09/10/24 04:00 09/10/24 04:00 09/10/24 04:00 09/10/24 04:00 09/10/24 04:00 09/10/24 04:00 Narrative Exam General: Alert, no acute distress. Skin: Warm, dry, intact, no obvious rash. Head: Normocephalic, atraumatic. Eye: Normal conjunctiva, Cardiovascular: Regular rate and rhythm, no murmur, Respiratory: Lungs are clear to auscultation, respirations unlabored, no crackles, no wheezing. Gastrointestinal: Soft, nontender, non-distended. No guarding or rebound tenderness. Extremities: No edema, no cyanosis, no clubbing. 2+ radial pulse bilaterally. s/p R BKA, dressed. Neuro: No focal deficits observed. Conversant, moving all extremities. No overt cerebellar signs/incoordination. Psychiatric: Cooperative, appropriate affect. Objective Labs 09/10/24 06:55 09/10/24 05:00 Labs: Laboratory Results - last 24 hr 09/09/24 09/10/24 09:10 05:00 Sodium 139 Potassium 4.8 Chloride 104 Carbon Dioxide 23.9 Anion Gap 11 BUN 27 H Creatinine 1.2 Estim Creat Clear Calc 57.1 L eGFR > 60 BUN/Creatinine Ratio 23 H Glucose 358 H D Calculated Osmolality 296 H Calcium 8.1 L Corrected Calcium 9.2 Total Bilirubin 0.2 L AST 26 ALT 28 Alkaline Phosphatase 120 H Total Protein 5.1 L Albumin 2.6 L Globulin 2.5 Albumin/Globulin Ratio 1.0 L Blood Type O Positive Antibody Screen NEGATIVE Crossmatch See Detail Blood Bank Wristband ID Yes Quality Measures Quality Measures sepsis Current suspected stage: ruled out Possible source: bone/joint, genitourinary and skin/soft tissue Blood cultures ordered: yes Antibiotic ordered: Yes Advance care planning discussed with:: patient Assessment & Plan Assessment Current Active Medications: Generic Name Dose Route Start Last Admin Trade Name Freq PRN Reason Stop Dose Admin Acetaminophen 650 mg 09/01/24 22:20 09/06/24 05:50 Acetaminophen 325 Mg Tablet PO 10/01/24 22:19 650 mg Q6H PRN Administration PAIN SCALE 1-3 (mild Amlodipine Besylate 10 mg 09/07/24 09:00 09/09/24 09:13 Amlodipine Besylate 5 Mg Tablet PO 10/07/24 08:59 10 mg QDAY ALEXIS Administration Aspirin 81 mg 09/02/24 09:00 09/07/24 09:33 Aspirin Ec 81 Mg Tabec PO 10/02/24 08:59 81 mg QDAY ALEXIS Administration Bisacodyl 5 mg 09/06/24 09:00 09/09/24 09:14 Bisacodyl 5 Mg Tabec PO 10/06/24 08:59 5 mg QDAY ALEXIS Administration Protocol Cephalexin HCl 1,000 mg 09/09/24 14:00 09/10/24 05:10 Cephalexin 250 Mg Capsule PO 09/12/24 13:00 1,000 mg TID ALEX[facility] Administration Dextrose 25 ml 09/03/24 11:13 09/06/24 20:55 Dextrose 50%-Water Inj 50 Ml Syringe IV 10/03/24 11:12 25 ml Q15MIN PRN Administration BG 50-70 responsive npo pt Dextrose 50 ml 09/03/24 11:13 Dextrose 50%-Water Inj 50 Ml Syringe IV 10/03/24 11:12 Q15MIN PRN BG <50 OR BG <70 & pt unresponsive Finasteride 5 mg 09/02/24 09:00 09/09/24 09:14 Finasteride 5 Mg Tablet PO 10/02/24 08:59 5 mg QDAY ALEXIS Administration Glucagon 1 mg 09/03/24 11:13 Glucagon Inj 1 Mg Vial IM Q15MIN PRN BG <70, and no IV access Heparin Sodium (Porcine) 5,000 unit 09/02/24 09:00 09/09/24 20:45 Heparin Sod Inj 5000 Unit/Ml Vial SC 09/16/24 08:59 Not Given Q12HR [facility] Insulin Glargine 30 unit 09/08/24 21:00 09/09/24 21:05 Insulin Glargine (Lantus) 5 Unit/0.05 Ml (Per 5 Units) SC 10/08/24 20:59 30 unit HS [facility] Administration Insulin Human Lispro 4 unit 09/09/24 11:30 09/09/24 18:22 Insulin Lispro (Admelog) 1 Unit/0.01 Ml Unit SC 10/09/24 11:29 Not Given AC [facility] Insulin Human Lispro 0 unit 09/09/24 21:00 09/09/24 20:54 Insulin Lispro (Admelog) 1 Unit/0.01 Ml Unit SC 10/09/24 20:59 Not Given ACHS [facility] Protocol Lisinopril 40 mg 09/05/24 09:00 09/09/24 09:13 Lisinopril 20 Mg Tablet PO 10/05/24 08:59 40 mg QDAY ALEXIS Administration Metoclopramide HCl 10 mg 09/06/24 00:50 09/06/24 02:30 Metoclopramide Inj 5 Mg/Ml Vial 2 Ml IVP 10/06/24 00:49 10 mg Q8HR PRN Administration NAUSEA OR VOMITING Protocol Morphine Sulfate 1 mg 09/09/24 20:24 Morphine Sulf Inj 10 Mg/Ml Vial IVP 09/14/24 20:23 Q3HR PRN PAIN SCALE 7-10 (Severe Ondansetron HCl 4 mg 09/06/24 11:00 Ondansetron Inj 2 Mg/Ml Inj 2 Ml IVP 10/06/24 10:59 Q6HR PRN NAUSEA OR VOMITING Protocol Oxycodone/Acetaminophen 1 tab 09/09/24 20:24 Oxycodone/Apap 5/325 Tablet PO 09/14/24 20:23 Q6HR PRN PAIN SCALE 7-10 (Severe Sennosides 1 tab 09/01/24 22:20 09/05/24 05:23 Senna Tablet PO 10/01/24 22:19 1 tab QDAY PRN Administration constipation Protocol Sertraline HCl 50 mg 09/02/24 21:00 09/09/24 21:04 Sertraline Hcl 25 Mg Tablet PO 10/02/24 20:59 50 mg HS ALEXIS Administration Sitagliptin Phosphate 100 mg 09/08/24 09:00 09/09/24 09:14 Sitagliptin Phosphate 50 Mg Tablet PO 10/08/24 08:59 100 mg QDAY ALEXIS Administration Plan Mr. Marc 74-year-old man with significant past medical history of longstanding hypertension, uncontrolled diabetes mellitus, dyslipidemia, diabetic neuropathy, diabetic retinopathy, diabetic foot presented to the hospital with a chief complaints of worsening of his wound on right foot stump, s/p R BKA with Dr. Miller, plan for dispo to snf. # JULIO on CKDIII. Creatinine markedly improved. Underlying CKD from diabetic nephropathy. 09/10 Cr. 1.2 Check urine protein/creatinine Gave iron, Procrit for anemia of chronic kidney disease #s/p R BKA 09/09/24 w/Dr Miller # Diabetic right foot with Early osteomyelitis of the stump with PVD -Patient had history of chronic rt diabetic foot -Patient is following with the wound care -Patient noticed recent worsening of the wound with foul-smelling discharge from it since 4 days before the day of admission -Denies fever, nausea, vomiting, palpitations, shortness of breath -Had a long conversation with the patient and daughter-might benefit from right BKA to avoid multiple surgeries due to his severe peripheral vascular disease. -s/p R BKA, dressing in place, pain well controlled. pending discharge to snf. PLAN: - s/p BKA with Dr. Miller 09/09, plan for dressing change tomorrow, dispo to snf # Uncontrolled diabetes mellitus A1c on 04/06/2024 is 13.1 A1c: 08/2024-A1c 8.6. sugars previously noted at 500 during this admission 84 AM gluc 223 8/ AM gluc 330 -Patient is currently on insulin, managed per primary team Glargine 30 units QHS -continue Januvia (sitagliptan 100mg qd) -consider low-dose glipizide 5mg BID -Hypoglycemia protocol in place # History of hypertension -Blood pressure at the time of admission is 136/74 mmHg -Patient is using metoprolol and lisinopril at home Plan -Currently on amlodipine, lisinopril # History of CAD s/p CABG -Patient is using aspirin and atorvastatin at home. Aspirin held for surgery #Dyslipidemia -Lipid profile is within normal limits on 04/06/2024 cont atorvastatin 20 mg qhs Plan of care discussed with primary team Plan discussed with nephrology attending Dr. Sharon Villegas MD Internal Medicine PGY-1 Attending Provider Attestation/Addendum Patient seen and examined with resident physician Dr. Villegas. Note reviewed, agree with findings and recommendations. Patient comfortable. s/p right BKA today with Dr. Miller Blood sugars are high and blood pressure seems to be stable. Creatinine stable. Spoke to team-continue with [facility] Patient will need to go to rehab temporarily.
[2024-09-10 07:15] LABS: Basophils # (Auto) 0.0 Thou/mm3 (0.0-0.2); Basophils % (Auto) 0 % (0-2.5); Eosinophils # (Auto) 0.0 Thou/mm3 (0.0-0.5); Eosinophils % (Auto) 0 % (0-10); Hematocrit 27.6 % (41.0-53.0); Immature Granulocytes Auto 0.49 Thou/mm3 (0.00-0.00); Lymphocytes # (Auto) 0.9 Thou/mm3 (1.0-4.8); Lymphocytes % (Auto) 5 % (10-50); Mean Corpuscular HGB Conc 31.9 g/dl (31.0-37.0); Mean Corpuscular Hemoglobin 28.6 pg (25.0-35.0); Mean Corpuscular Volume 90 fL (80-100); Monocytes # (Auto) 1.1 Thou/mm3 (0.0-0.8); Monocytes % (Auto) 6 % (0-12); Neutrophils # (Auto) 15.2 Thou/mm3 (1.8-7.7); Neutrophils % (Auto) 86 % (37-80); Nucleated Red Blood Cell # 0.00 Thou/mm3 (0.00-0.00); Nucleated Red Blood Cell % 0 /100 WBC (0); Platelet Count 507 Thou/mm3 (140-440); RDW Standard Deviation 51.1 fL (35.1-43.9); Red Blood Count 3.08 Miln/mm3 (4.50-5.90); White Blood Count 17.7 Thou/mm3 (3.8-10.6)
[2024-09-10 07:18] LABS: Hemoglobin 8.8 g/dL (13.5-16.0)
[2024-09-10] MEDS: INSULIN LISPRO (AdmeLOG) 1 UNIT/0.01 ML UNIT 4 UNIT SC (07:56)
[2024-09-10] MEDS: INSULIN LISPRO (AdmeLOG) 1 UNIT/0.01 ML UNIT SC ×4 (07:57→21:28)
--- NOTE | 2024-09-10 08:47 | ESPR_ITS ---
Documentation for date of: 09/10/24 Subjective Subjective Brief History: 74M with HTN, HLD, DMII, TIA, CKD and PAD who initially underwent right great toe amputation April 2024, followed by TMA by Dr. Bravo in [place] 2 months later. Patient had been following with Dr. Bravo however due to insurance issues he is no longer able to see him. Patient has also been seen by Dr. Nobles vascular surgeon. Patient was brought to ER yesterday because his daughter noted he was more weak and that the foot was becoming more red. Patient has noted to have leukocytosis in the 20s, UA with pyuria and x-ray showing osteomyelitis of the amputated metatarsals. He developed tachycardia during this admission, read as atrial fibrillation and he was transferred to telemetry, with heart rate now well- controlled PMH: HLD, HTN, DMII, CKD, CAD, TIA in 2021, PAD, BPH, and depression PSH: Open heart valve replacement in 2008, CABG, R great toe amputation and TMA earlier this year Meds: currently taking ASA 81mg, no other antiplt during this hospitalization Allergies: NKDA SH: Lives with daughter, not ambulatory at the moment Narrative: Feeling well with minimal pain, Hgb 8.8, no hypotension Exam Vital Signs Temp Pulse Resp BP Pulse Ox O2 Del Method O2 Flow Rate 97.0 F 63 18 122/84 100 Nasal Cannula 2 09/10/24 04:00 09/10/24 04:00 09/10/24 04:00 09/10/24 04:00 09/10/24 04:00 09/10/24 04:00 09/10/24 04:00 Constitutional Constitutional: no acute distress Routine Respiratory Exam Respiratory: Present no resp distress Results Results: Laboratory Laboratory results: results reviewed Assessment & Plan Plan 74M with HTN, HLD, DMII, TIA, CKD and PAD who initially underwent right great toe amputation April 2024, followed by TMA by Dr. Bravo in [place] 2 months later, presenting with osteomyelitis of the TMA site as well as an eschar of the heel, s/p excisional debridement and drainage 09/04, with worsened erythema and fluctuance of the plantar surface of the foot now s/p R BKA 8/4, recovering well Dressing change tomorrow Appreciate ID recs PROCEDURES: Procedures Right below-knee amputation
[2024-09-10] MEDS: FINASTERIDE 5 MG TABLET PO (09:35)
[2024-09-10] MEDS: HEPARIN SOD INJ 5000 UNIT/ML VIAL SC ×2 (09:35→21:28)
[2024-09-10] MEDS: ASPIRIN EC 81 MG TABEC PO (09:36)
--- NOTE | 2024-09-10 09:45 | ESPR_ITS ---
<Statement entered by Aida Farr MD - 09/10/24 15:35> Patient is seen at bedside. Currently resting comfortably and denies any pain. Patient underwent right BKA yesterday. Per surgery will continue antibiotics today and will plan for discharge tomorrow with home health PT and wound care. Vitals are stable labs are reviewed patient's blood sugar is above 350, will increase Lantus to 35 units and will increase mealtime insulin to 7 units with meals. Will readjust based on sliding scale insulin use and tomorrow blood glucose. Patient has no other complaints. Patient was seen and examined by me personally. I have directly supervised and reviewed documentation by the team resident and agree with its findings with the above exceptions/and additional findings. ------- Plan of care was discussed with the attending, Dr. Rhett Farr, PGY-2 Documentation for date of: 09/10/24 Subjective Subjective Interval history: Overnight events: No acute events overnight. Patient was seen and examined at bedside. AM vitals and labs reviewed. Patient has successful right BKA yesterday. Discussed with general surgery, who recommends keeping patient for 1 more day, okay to discharge after dressing change tomorrow. Will continue the cephalexin 1 g 3 times daily 3-day course per recommendations by ID. Blood glucose noted to be elevated this a.m., will increase Lantus to 35 units and lispro at meals to 7 units. Plan for discharge tomorrow. Review of systems otherwise negative except for what is mentioned above. Exam Vital Signs Temp Pulse Resp BP Pulse Ox O2 Del Method O2 Flow Rate 97.3 F 81 13 109/67 97 Nasal Cannula 2 09/10/24 08:00 09/10/24 09:34 09/10/24 08:00 09/10/24 09:34 09/10/24 08:00 09/10/24 08:00 09/10/24 08:00 Narrative Exam Physical Exam: General: Alert, no acute distress. Skin: Warm, dry, intact, no obvious rash. Head: Normocephalic, atraumatic. Eye: Normal conjunctiva, PERRL. Cardiovascular: Regular rate and rhythm, no murmur, +S1/S2. Respiratory: Lungs are clear to auscultation, respirations unlabored, no crackles, no wheezing. Gastrointestinal: Soft, nontender, non-distended. No guarding or rebound tenderness. Extremities: No edema, no cyanosis, no clubbing. 2+ radial pulse bilaterally, R ight BKA. Neuro: No focal deficits observed. Conversant, moving all extremities. No overt cerebellar signs/incoordination. Psychiatric: Cooperative, appropriate affect. Objective Labs 09/10/24 06:55 09/10/24 05:00 Labs: Laboratory Results - last 24 hr 09/09/24 09/10/24 09/10/24 09:10 05:00 06:55 WBC 17.7 H RBC 3.08 L Hgb 8.8 L Hct 27.6 L MCV 90 MCH 28.6 MCHC 31.9 RDW Std Deviation 51.1 H Plt Count 507 H D Neut % (Auto) 86 H Lymph % (Auto) 5 L [place]im[place] % (Auto) 6 Eos % (Auto) 0 Baso % (Auto) 0 Neut # (Auto) 15.2 H Lymph # (Auto) 0.9 L [place] # (Auto) 1.1 H Eos # (Auto) 0.0 Baso # (Auto) 0.0 Immature Gran # (Auto) 0.49 H Absolute Nucleated RBC 0.00 Immature Gran % 3 H Nucleated RBC % 0 Sodium 139 Potassium 4.8 Chloride 104 Carbon Dioxide 23.9 Anion Gap 11 BUN 27 H Creatinine 1.2 Estim Creat Clear Calc 57.1 L eGFR > 60 BUN/Creatinine Ratio 23 H Glucose 358 H D Calculated Osmolality 296 H Calcium 8.1 L Corrected Calcium 9.2 Total Bilirubin 0.2 L AST 26 ALT 28 Alkaline Phosphatase 120 H Total Protein 5.1 L Albumin 2.6 L Globulin 2.5 Albumin/Globulin Ratio 1.0 L Blood Type O Positive Antibody Screen NEGATIVE Crossmatch See Detail Blood Bank Wristband ID Yes Quality Measures Quality Measures sepsis Current suspected stage: ruled out Possible source: bone/joint, genitourinary and skin/soft tissue Blood cultures ordered: yes Antibiotic ordered: Yes Advance care planning discussed with:: patient Assessment & Plan Assessment Current Active Medications: Generic Name Dose Route Start Last Admin Trade Name Freq PRN Reason Stop Dose Admin Acetaminophen 650 mg 09/01/24 22:20 09/06/24 05:50 Acetaminophen 325 Mg Tablet PO 10/01/24 22:19 650 mg Q6H PRN Administration PAIN SCALE 1-3 (mild Amlodipine Besylate 10 mg 09/07/24 09:00 09/10/24 09:32 Amlodipine Besylate 5 Mg Tablet PO 10/07/24 08:59 10 mg QDAY ALEXIS Administration Aspirin 81 mg 09/02/24 09:00 09/10/24 09:36 Aspirin Ec 81 Mg Tabec PO 10/02/24 08:59 81 mg QDAY ALEXIS Administration Bisacodyl 5 mg 09/06/24 09:00 09/10/24 09:34 Bisacodyl 5 Mg Tabec PO 10/06/24 08:59 5 mg QDAY ALEXIS Administration Protocol Cephalexin HCl 1,000 mg 09/09/24 14:00 09/10/24 05:10 Cephalexin 250 Mg Capsule PO 09/12/24 13:00 1,000 mg TID ALEXIS Administration Dextrose 25 ml 09/03/24 11:13 09/06/24 20:55 Dextrose 50%-Water Inj 50 Ml Syringe IV 10/03/24 11:12 25 ml Q15MIN PRN Administration BG 50-70 responsive npo pt Dextrose 50 ml 09/03/24 11:13 Dextrose 50%-Water Inj 50 Ml Syringe IV 10/03/24 11:12 Q15MIN PRN BG <50 OR BG <70 & pt unresponsive Finasteride 5 mg 09/02/24 09:00 09/10/24 09:35 Finasteride 5 Mg Tablet PO 10/02/24 08:59 5 mg QDAY ALEXIS Administration Glucagon 1 mg 09/03/24 11:13 Glucagon Inj 1 Mg Vial IM Q15MIN PRN BG <70, and no IV access Heparin Sodium (Porcine) 5,000 unit 09/02/24 09:00 09/10/24 09:35 Heparin Sod Inj 5000 Unit/Ml Vial SC 09/16/24 08:59 5,000 unit Q12HR ALEXIS Administration Insulin Glargine 30 unit 09/08/24 21:00 09/09/24 21:05 Insulin Glargine (Lantus) 5 Unit/0.05 Ml (Per 5 Units) SC 10/08/24 20:59 30 unit HS ALEXIS Administration Insulin Human Lispro 4 unit 09/09/24 11:30 09/10/24 07:56 Insulin Lispro (Admelog) 1 Unit/0.01 Ml Unit SC 10/09/24 11:29 4 unit AC ALEXIS Administration Insulin Human Lispro 0 unit 09/09/24 21:00 09/10/24 07:57 Insulin Lispro (Admelog) 1 Unit/0.01 Ml Unit SC 10/09/24 20:59 6 unit ACHS ALEXIS Administration Protocol Lisinopril 40 mg 09/05/24 09:00 09/10/24 09:34 Lisinopril 20 Mg Tablet PO 10/05/24 08:59 40 mg QDAY ALEXIS Administration Metoclopramide HCl 10 mg 09/06/24 00:50 09/06/24 02:30 Metoclopramide Inj 5 Mg/Ml Vial 2 Ml IVP 10/06/24 00:49 10 mg Q8HR PRN Administration NAUSEA OR VOMITING Protocol Morphine Sulfate 1 mg 09/09/24 20:24 Morphine Sulf Inj 10 Mg/Ml Vial IVP 09/14/24 20:23 Q3HR PRN PAIN SCALE 7-10 (Severe Ondansetron HCl 4 mg 09/06/24 11:00 Ondansetron Inj 2 Mg/Ml Inj 2 Ml IVP 10/06/24 10:59 Q6HR PRN NAUSEA OR VOMITING Protocol Oxycodone/Acetaminophen 1 tab 09/09/24 20:24 Oxycodone/Apap 5/325 Tablet PO 09/14/24 20:23 Q6HR PRN PAIN SCALE 7-10 (Severe Sennosides 1 tab 09/01/24 22:20 09/05/24 05:23 Senna Tablet PO 10/01/24 22:19 1 tab QDAY PRN Administration constipation Protocol Sertraline HCl 50 mg 09/02/24 21:00 09/09/24 21:04 Sertraline Hcl 25 Mg Tablet PO 10/02/24 20:59 50 mg HS ALEXIS Administration Sitagliptin Phosphate 100 mg 09/08/24 09:00 09/10/24 09:32 Sitagliptin Phosphate 50 Mg Tablet PO 10/08/24 08:59 100 mg QDAY ALEXIS Administration Plan Mr. Marc is a 74 year old gentleman with a past history of PAD, HTN, T2DM, HLD, and s/p amputation of right metatarsals who presented to the ED with concerns of generalized weakness and AMS. The patient was admitted for sepsis management due to osteomyelitis of right foot and urinary tract infection. #Right foot osteomyelitis at right transmetatarsal amuptation site #s/p right transmetatarsal amputation #Sepsis (resolving) #SIRs Criteria (resolving) #R. Plantar Edema (resolved) #Eschar of right heel (resolved) #Leukocytosis (resolving) Patient had difficulty healing his right foot after toe amputation to metatarsals about 2 months ago. The poor healing was likely due to the patient's history of peripheral artery disease. The patient presented with fever of 103.8, heart rate 112, and WBC 23.2 in the ED with source of infection (right foot) and evidence of endorgan damage in elevated creatinine. Foot x-ray done in ED showed cortical bone destruction of distal metatarsals in right foot, further suggesting osteomyelitis. Active pus in right foot, black escar of right heel, and erythematous right foot support signs of active infection in patient. qSofa 1 w/ end organ damage JULIO on CKD and lactic acid. Patient had a temperature of 103.8F, HR of 112, RR of 22, and WBC of 23.2 ED prior to admission to [facility]. This satisfies all 4 elements of SIRS criteria. Initially the patient's active source of infection is right TMA stump and UTI, along with lactic acidosis of 5.3 on 09/02/24. This fits criteria of sepsis [SIRS + source + lactic acidosis] but without septic shock due to mostly elevated BP throughout stay. ? Current antibiotic(s): Cephalexin 1 gm TID [09/09-09/11] ? Previous antibiotic(s): ? Metronidazole 500 mg TID [09/06-09/09] ? Doxycycline 100 mg BID [09/06-09/09] ? Ceftriaxone 2 gm daily [09/02-09/09] ? Vancomycin [09/02-09/06] ? Piperacillin/tazobactam [09/02-09/06] ? Blood cultures x 2 drawn 09/01; no growth after 5 days ? Right foot wound culture collected 09/02 ? Preliminary results 09/03: Gram-positive cocci [empiric antibiotic coverage: Piperacillin/tazobactam & vancomycin] ? Results 09/05: Micrococcus and related genera ? Foot x-ray 09/01 and foot MRI 09/02 support osteomyelitis at transmetatarsal amputation site ? General Surgery Consulted, Dr. Miller, appreciate recommendations ? I&D performed 09/04, initially planned for wound vac 09/09, but family decided to pursue right BKA ? Right BKA 09/09 ? Cardiology consulted for surgery clearance, appreciate recommendations ? Infectious disease Consulted, Dr. Blankenship, appreciate recommendations ? ID recommends treatment through 10/17 with p.o. Flagyl 500mg TID, p.o. doxycycline 100mg BID, and IV Rocephin 2gm daily ? ID recommends 3-day course of cephalexin 1 g 3 times daily in light of patient pursuing right BKA ? Ordered ESR and CRP 09/06 for uptrending WBC #Urinary tract infection (E. Coli) Patient had urinalysis performed in ED, which showed WBC 134 with 4+ bacteria, positive urine nitrate, 3+ glucose, and 1+ protein. Due to patient's altered mental status, will monitor and manage with antibiotic treatment. ? Initially managed with ceftriaxone started on 09/01, swap to piperacillin/tazobactam on 09/02, stopped piperacillin/tazobactam 09/06 ? Will monitor progression with CBC and daily examinations ? Urine culture taken on 09/01 shows E. coli, management w/ Rocephin per ID recommendations #JULIO on CKD, likely secondary to sepsis vs dehydration (resolving) #Metabolic Acidosis, anion gap, secondary to Lactic Acidosis (resolved) Patient presented with BUN 35, creatinine 1.4, GFR 53. Possible explanations as to why include decreased blood flow due to sepsis from patient's osteomyelitis and/or urinary tract infection or decreased fluid intake due to altered mental status. Patient has slightly decreased bicarb at 19.6 with an anion gap, likely due to elevated lactic acid at 5.3. ? Will monitor with daily renal panel ? IV hydration with NS due to worsening of renal function 09/05 ? Will renally dose medication and avoid nephrotoxic medication ? Consulted nephrology, appreciate recommendations #Primary Hypertension Patient has a history of hypertension and initial vitals taken in the ED showed blood pressure of 160/80. ? Restarted patient's home lisinopril 40 mg daily further improvement of JULIO noted on 09/04 ? Increased amlodipine to 10 mg daily #Anemia of chronic disease #In the setting of CKD Patient had decreased H&H of 10.3/31.6 with MCV of 90. Iron panel abnormal with iron at 12, UIBC 134, iron saturation 8%, ferritin 726. Plan ? No iron tablets, given concern for sepsis ? Will monitor with daily CBC ? Will transfuse if hemoglobin drops below 7 per protocol #Hyperglycemia #Insulin dependent Type 2 diabetes mellitus #Diabetic neuropathy Patient has reported history of type 2 diabetes mellitus and diabetic neuropathy that likely led to transmetatarsal amputation. Home glargine 20 units, Glipizide, and Januvia. Plan ? Increase insulin glargine to 35 units at night ? Increase insulin lispro to 7 units with meals ? Continue to monitor fasting blood glucose ? Patient had episodes of hyperglycemia after I&D on 09/04, educated patient on the importance of not consuming outside hospital food while inpatient ? Nephrology restarted patient's home Januvia and Ozempic ? Continue to hold home glipizide #Hyperlipidemia #History of peripheral artery disease #History of thrombus in RLE Patient was reported to have a history of hyperlipidemia on home atorvastatin 20 mg. Patient's family reports that the patient received surgical care at [facility] in [place], [place] as they have specialists to manage peripheral artery disease in patients who require amputations in the lower extremities. 1+ pedal pulse noted in bilateral lower extremities. Likely a contributor to poor wound healing post transmetatarsal amputation, which likely contributed to infection that led to osteomyelitis. ? Held home atorvastatin 20 mg ? US LE veins 09/02 negative for DVT ? US LE arteries positive for right popliteal monophasic flow and left posterior tibial artery monophasic flow, but left and right ENRRIQUE greater than 0.9 #Hypophosphatemia (resolved) Patient had phosphorus of 2.1 on 08/25 9 AM labs. ? Ordered potassium phosphate packet [Neutra-Phos] one-time dose 09/03 ? Will monitor with a.m. phosphorus levels #Thrombocytosis (resolved) Patient has elevated platelet count at 509 on 09/02 likely reactive secondary to acute infection. ? Will monitor with daily CBC #Constipation (resolved) Patient has bowel movements every few days per family members. Patient responds well to home bisacodyl 5mg PRN. ? Continue bisacodyl 10 mg daily ? Ordered docusate 100 mg, senna/docusate tablet, warm water enema, and glycerin suppository one-time doses to encourage bowel movement on 09/06 #Hypomagnesemia (resolved) Patient had magnesium of 1.4 on 09/04. ? Ordered magnesium repletion with 2 gm magnesium sulfate IV once 09/04 and start 400 mg magnesium oxide daily. Stopped on 09/08. DVT Prophylaxis: Heparin GI Prophylaxis: N/A Diet: Carbohydrate consistent low [place]: Yes Lines: Peripheral IV Antibiotics: Cephalexin Code Status: FULL Reason for Hospitalization: Sepsis due to osteomyelitis and UTI Other Barriers to Discharge: Right BKA dressing change Patient plan of care was discussed with the senior resident Dr. Farr (PGY-2) and attending physician Dr. Galindo. Mando Lima, PGY1 Attending Provider Attestation/Addendum I attest that I was physically present for the evaluation, physical examination, lab and imaging review of the patient with the residents. I discussed the case with the residents and agree with the findings and plans of care as documented above. At bedside, patient is states she is feeling well and denies any new complaints. Underwent right BKA yesterday with general surgery. Vital signs and lab results are stable except for hyperglycemia. Discussed with general surgery, will plan for dressing change tomorrow. Adjusted insulin regimen, we will continue to monitor glucose level. If glucose level is stable and cleared by surgery, we will plan for discharge tomorrow. Joel Delaney MD
--- NOTE | 2024-09-10 10:27 | PC.SS ---
CLASS B DRIVER spoke to next of kin Renea to coordinate d/c plan. Patients daughter Renea stated that they would like to go home with home health and declined SNF placement. Patient daughter stated that they would like to have [facility] as they were previously aligned with them before hospital visit. Patients PCP is Dr. Herrera last appointment was two weeks ago. Patient requested [employer] Lift. CLASS B DRIVER will submit DME request on [employer]. Patient stated that they spoke to doctor at 10:00 about requesting HH.
--- NOTE | 2024-09-10 10:30 | PC.SS ---
Addendum entered by CONNOR Nice 09/10/24 11:21: WheelChairs Patients diagnosis creates mobility limitations that significantly impairs ability to participate in the patients activities of daily living either in their entirety, or in a reasonable time frame in the home and the patients mobility limitations can not be sufficiently resolved with an appropriately fitted cane or walker. Also the use of a manual wheelchair will sufficiently improve patients ability to participate in the activities of daily living in the home and the patient is willing to use the wheelchair that is provided in the home. The patient has some one in the home that is available, willing and able to provide assistance with the wheelchair. Bedside Commode Patient is physically incapable of utilizing regular toilet facilities because his or her diagnosis confines the patient to a single room. Patient is confined to a single level, and there is no toilet on that level; patient cannot access the toilet facilities in a timely manner due to lack of ambulation. Original Note: claudine lift Patient needs a claudine lift for home: Patient requires transfer between the bed, chair, wheelchair and commode that requires the assistance of more than one person. Without the use of the lift the patient would be confined or dependent transfer
--- NOTE | 2024-09-10 11:15 | PC.SS ---
PT janice informed YAM CURER that patient was requesting claudine lift, 3 in one commode, and wheelchair. YAM CURER will submit DME referral.
--- NOTE | 2024-09-10 11:36 | PC.SS ---
ONCOLOGIST [facility]
[2024-09-10] MEDS: INSULIN LISPRO (AdmeLOG) 1 UNIT/0.01 ML UNIT 7 UNIT SC ×2 (12:39→17:19)
--- NOTE | 2024-09-10 14:32 | PC.SS ---
Rounding note: another day of antibiotics d/c tomorrow with HH. MACHINE OPERATOR HELPER to confirm with bedside nurse if patient has stump protector ordered. MACHINE OPERATOR HELPER spoke to bedside nurse Martha, Martha confirmed it was ordered via fax.
--- NOTE | 2024-09-10 16:09 | PC.NURSE ---
Patient arrived to unit at this time. Patient is alert and oriented x 4. Patient denies pain. BG 342. Dressing to right BKA, CDI.
--- NOTE | 2024-09-10 16:58 | ESPR_ITS ---
<Statement entered by Murali Davison MD - 09/11/24 18:18> I personally examined evaluated the patient following DKA surgery along with resident physician PGY [address] Dr. Shrestha PGY 2 as well evaluate the patient personally and patient appears to be doing quite well recovering well following BKA patient has had a history of CAD bypass surgery no recent acute intervention is antiplatelet drug therapy can be resumedThere is no need for Plavix baby aspirin should be sufficient since patient has not had any recent intervention agree with the treatment plan recommendation as documented <Statement entered by Carlotta De Luna MD - 09/10/24 17:15> In summary: 74-year-old male with PMHx significant for hypertension, uncontrolled type 2 diabetes, diabetic neuropathy hyperlipidemia, PAD, CAD status post bypass graft surgery and stents admitted for osteomyelitis of right foot and urinary tract infection. Has has been assessed and cleared for surgical intervention. Completed uncomplicated BKA or RLE. Remains hemodynamically stable. Continued on ASPIRIN and PLAVIX for PAD. I?ve reviewed the note and agree with the resident's assessment and plan, with the exceptions outlined above. I personally went over the labs, imaging, home medications, and prior records, and examined the patient. The case was also reviewed with the attending physician. Please note: this document was transcribed using voice recognition technology; minor inaccuracies may be present. Carlotta De Luna DO PGY II Documentation for date of: 09/10/24 Subjective Subjective Interval history: Patient is postop day 1 from below-knee amputation. Kidney function improving. BUN is trended down to 27 from 53. Creatinine has trended down to 1.2 from 1.4. Vitals are stable. Will DC plavix. Cardiology will sign off. Exam Vital Signs Temp Pulse Resp BP Pulse Ox O2 Del Method O2 Flow Rate 97.8 F 83 16 121/61 99 Nasal Cannula 2 09/10/24 16:00 09/10/24 16:00 09/10/24 16:09/10/24 16:09/10/24 16:09/10/24 16:09/10/24 16:00 Narrative Exam General: Awake and in no acute distress. Conversational and non-toxic appearing. Neurologic: GCS 15. Alert and oriented x3, no gross neurological deficit, and patient able to move all 4 extremities. HEENT: Normocephalic, atraumatic, mucous membranes moist. Pupils reactive to light. Heart: Regular rate and rhythm, normal S1 and S2, no murmurs. Lungs: Clear to auscultation bilaterally with no wheezing or crackles. Abdomen: Soft, nondistended, nontender, positive bowel sounds. No guarding or rebound tenderness. Extremities: No edema. Right lower extremity amputation below the knee with bandage. No right popliteal pulse. Skin: Warm. Dry. No rash or ecchymoses. Objective Labs 09/10/24 06:55 09/10/24 05:00 Labs: Laboratory Results - last 24 hr 09/10/24 09/10/24 05:00 06:55 WBC 17.7 H RBC 3.08 L Hgb 8.8 L Hct 27.6 L MCV 90 MCH 28.6 MCHC 31.9 RDW Std Deviation 51.1 H Plt Count 507 H D Neut % (Auto) 86 H Lymph % (Auto) 5 L [place] % (Auto) 6 Eos % (Auto) 0 Baso % (Auto) 0 Neut # (Auto) 15.2 H Lymph # (Auto) 0.9 L [place] # (Auto) 1.1 H Eos # (Auto) 0.0 Baso # (Auto) 0.0 Immature Gran # (Auto) 0.49 H Absolute Nucleated RBC 0.00 Immature Gran % 3 H Nucleated RBC % 0 Sodium 139 Potassium 4.8 Chloride 104 Carbon Dioxide 23.9 Anion Gap 11 BUN 27 H Creatinine 1.2 Estim Creat Clear Calc 57.1 L eGFR > 60 BUN/Creatinine Ratio 23 H Glucose 358 H D Calculated Osmolality 296 H Calcium 8.1 L Corrected Calcium 9.2 Total Bilirubin 0.2 L AST 26 ALT 28 Alkaline Phosphatase 120 H Total Protein 5.1 L Albumin 2.6 L Globulin 2.5 Albumin/Globulin Ratio 1.0 L Quality Measures Quality Measures sepsis Current suspected stage: ruled out Possible source: bone/joint, genitourinary and skin/soft tissue Blood cultures ordered: yes Antibiotic ordered: Yes Advance care planning discussed with:: patient Assessment & Plan Assessment Current Active Medications: Generic Name Dose Route Start Last Admin Trade Name Freq PRN Reason Stop Dose Admin Acetaminophen 650 mg 09/01/24 22:20 09/06/24 05:50 Acetaminophen 325 Mg Tablet PO 10/01/24 22:19 650 mg Q6H PRN Administration PAIN SCALE 1-3 (mild Amlodipine Besylate 10 mg 09/07/24 09:00 09/10/24 09:32 Amlodipine Besylate 5 Mg Tablet PO 10/07/24 08:59 10 mg QDAY ALEXIS Administration Aspirin 81 mg 09/02/24 09:00 09/10/24 09:36 Aspirin Ec 81 Mg Tabec PO 10/02/24 08:59 81 mg QDAY ALEXIS Administration Bisacodyl 5 mg 09/06/24 09:00 09/10/24 09:34 Bisacodyl 5 Mg Tabec PO 10/06/24 08:59 5 mg QDAY ALEXIS Administration Protocol Cephalexin HCl 1,000 mg 09/09/24 14:00 09/10/24 14:17 Cephalexin 250 Mg Capsule PO 09/12/24 13:00 1,000 mg TID ALEXIS Administration Clopidogrel Bisulfate 75 mg 09/11/24 09:00 Clopidogrel Bisulfate 75 Mg Tablet PO 10/11/24 08:59 QDAY ALEXIS Dextrose 25 ml 09/03/24 11:13 09/06/24 20:55 Dextrose 50%-Water Inj 50 Ml Syringe IV 10/03/24 11:12 25 ml Q15MIN PRN Administration BG 50-70 responsive npo pt Dextrose 50 ml 09/03/24 11:13 Dextrose 50%-Water Inj 50 Ml Syringe IV 10/03/24 11:12 Q15MIN PRN BG <50 OR BG <70 & pt unresponsive Finasteride 5 mg 09/02/24 09:00 09/10/24 09:35 Finasteride 5 Mg Tablet PO 10/02/24 08:59 5 mg QDAY ALEXIS Administration Glucagon 1 mg 09/03/24 11:13 Glucagon Inj 1 Mg Vial IM Q15MIN PRN BG <70, and no IV access Heparin Sodium (Porcine) 5,000 unit 09/02/24 09:00 09/10/24 09:35 Heparin Sod Inj 5000 Unit/Ml Vial SC 09/16/24 08:59 5,000 unit Q12HR ALEXIS Administration Insulin Glargine 35 unit 09/10/24 21:00 Insulin Glargine (Lantus) 5 Unit/0.05 Ml (Per 5 Units) SC 10/10/24 20:59 HS ALEXIS Insulin Human Lispro 0 unit 09/09/24 21:00 09/10/24 12:39 Insulin Lispro (Admelog) 1 Unit/0.01 Ml Unit SC 10/09/24 20:59 6 unit ACHS ALEXIS Administration Protocol Insulin Human Lispro 7 unit 09/10/24 11:30 09/10/24 12:39 Insulin Lispro (Admelog) 1 Unit/0.01 Ml Unit SC 10/10/24 11:29 7 unit AC ALEXIS Administration Lisinopril 40 mg 09/05/24 09:00 09/10/24 09:34 Lisinopril 20 Mg Tablet PO 10/05/24 08:59 40 mg QDAY ALEXIS Administration Metoclopramide HCl 10 mg 09/06/24 00:50 09/06/24 02:30 Metoclopramide Inj 5 Mg/Ml Vial 2 Ml IVP 10/06/24 00:49 10 mg Q8HR PRN Administration NAUSEA OR VOMITING Protocol Morphine Sulfate 1 mg 09/09/24 20:24 Morphine Sulf Inj 10 Mg/Ml Vial IVP 09/14/24 20:23 Q3HR PRN PAIN SCALE 7-10 (Severe Ondansetron HCl 4 mg 09/06/24 11:00 Ondansetron Inj 2 Mg/Ml Inj 2 Ml IVP 10/06/24 10:59 Q6HR PRN NAUSEA OR VOMITING Protocol Oxycodone/Acetaminophen 1 tab 09/09/24 20:24 Oxycodone/Apap 5/325 Tablet PO 09/14/24 20:23 Q6HR PRN PAIN SCALE 7-10 (Severe Sennosides 1 tab 09/01/24 22:20 09/05/24 05:23 Senna Tablet PO 10/01/24 22:19 1 tab QDAY PRN Administration constipation Protocol Sertraline HCl 50 mg 09/02/24 21:00 09/09/24 21:04 Sertraline Hcl 25 Mg Tablet PO 10/02/24 20:59 50 mg HS ALEXIS Administration Sitagliptin Phosphate 100 mg 09/08/24 09:00 09/10/24 09:32 Sitagliptin Phosphate 50 Mg Tablet PO 10/08/24 08:59 100 mg QDAY ALEXIS Administration Plan Mr. Marc is a 74-year-old male with past medical history significant for hypertension, uncontrolled type 2 diabetes, diabetic neuropathy hyperlipidemia, PAD, CAD status post bypass graft surgery and stents presented to the ED due to somnolence and generalized weakness. Upon hospitalization patient was also noted to have erythematous and right foot swelling. Cardiology is consulted for cardiac clearance for excisional debridement of the left foot with possible below-knee amputation. #CAD status post PCI and bypass #Primary Hypertension -Patient did have a history of stent in the RCA by another engine generator assembler and a bypass graft of the LAD prior to 2020 (patient is a bad historian and unable to provide much detailed history regarding this procedure) -Patient underwent left heart cardiac catheterization with Dr. Davison in 2020 and was found to have multivessel disease and was recommended to undergo medical management and angioplasty at possibly stents in the LAD and the distal posterior descending branch of the right coronary artery. - Echo done on 09/03: Normal LV size and function. Estimated EF at 55 %. There is grade I diastolic dysfunction. The RV is normal in size and systolic function. Mild MAC. Trace MR and TR. Aortic valve sclerosis. Plan: - Continue amlodipine ad lisinopril for HTN - Patient will need close follow-up with engine generator assembler outpatient and will possibly need another angiogram at some point since he has history of multi- vessel disease #Peripheral artery disease #Hyperlipidemia -Pt has hx of hyperlipidemia and takes atorvastatin 20 mg daily. Patient also has PAD which has complicated his surgical healing in the right foot. US LE veins 09/02 negative for DVT US LE arteries positive for right popliteal monophasic flow and left posterior tibial artery monophasic flow, but left and right ENRRIQUE greater than 0.9 - Lipid panel from April 08, 2024: Cholesterol 117, LDL 62, HDL 52, triglycerides 97 - Review of the popliteal artery duplex showed monophasic adequate flow, will discuss with general surgery regarding below-knee amputation. Plan: - Recommend DC Plavix, DAPT not indicated. - Recommend continuing home atorvastatin - Recommend continuing aspirin 81 mg daily, amlodipine, and lisinopril. 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 Plantar Edema #Eschar of right heel #Leukocytosis #E. Coli Urinary tract infection #JULIO on CKD, likely secondary to sepsis vs dehydration #Metabolic Acidosis, anion gap, secondary to Lactic Acidosis #Anemia of chronic disease #Hyperglycemia #Type 2 diabetes mellitus on insulin #Diabetic neuropathy -management as per primary team Patient was seen and discussed with my attending physician Dr. Saman THRASHER. Wilfredo Shrestha DO PGY-1.
[2024-09-10] MEDS: SERTRALINE HCL 25 MG TABLET 50 MG PO (21:28)
[2024-09-10] MEDS: INSULIN GLARGINE (Lantus) 5 UNIT/0.05 ML (PER 5 UNITS) 35 UNIT SC (21:29)
[2024-09-11] VITALS (11 sets, daily range): BP systolic 98–133; BP diastolic 52–83; PULSE 69–88; RESP 16–20; TEMP 36.1–36.6; O2SAT 96–99
[2024-09-11] MEDS: MORPHINE SULF INJ 10 MG/ML VIAL IVP
[2024-09-11 06:07] LABS: Basophils # (Auto) 0.0 Thou/mm3 (0.0-0.2); Basophils % (Auto) 0 % (0-2.5); Eosinophils # (Auto) 0.0 Thou/mm3 (0.0-0.5); Eosinophils % (Auto) 0 % (0-10); Hematocrit 25.8 % (41.0-53.0); Immature Granulocytes Auto 0.63 Thou/mm3 (0.00-0.00); Lymphocytes # (Auto) 3.4 Thou/mm3 (1.0-4.8); Lymphocytes % (Auto) 26 % (10-50); Mean Corpuscular HGB Conc 32.9 g/dl (31.0-37.0); Mean Corpuscular Hemoglobin 29.4 pg (25.0-35.0); Mean Corpuscular Volume 89 fL (80-100); Monocytes # (Auto) 1.7 Thou/mm3 (0.0-0.8); Monocytes % (Auto) 13 % (0-12); Neutrophils # (Auto) 7.4 Thou/mm3 (1.8-7.7); Neutrophils % (Auto) 56 % (37-80); Nucleated Red Blood Cell # 0.00 Thou/mm3 (0.00-0.00); Nucleated Red Blood Cell % 0 /100 WBC (0); Platelet Count 465 Thou/mm3 (140-440); RDW Standard Deviation 50.7 fL (35.1-43.9); Red Blood Count 2.89 Miln/mm3 (4.50-5.90); White Blood Count 13.2 Thou/mm3 (3.8-10.6)
[2024-09-11 06:09] LABS: Hemoglobin 8.5 g/dL (13.5-16.0)
[2024-09-11 06:35] LABS: Albumin, Serum 2.7 gm/dL (3.4-4.8); Anion Gap 8 (7-16); BUN/Creatinine Ratio 30 Ratio (12-20); Blood Urea Nitrogen 33 mg/dL (9-23); Calcium 8.3 mg/dL (8.3-10.6); Calcium (Corrected) 9.3 mg/dL (8.5-10.1); Carbon Dioxide 27.1 mMol/L (20.0-31.0); Chloride 102 mMol/L (98-107); Creatinine (Component) 1.1 mg/dL (0.6-1.3); Estimated Creatinine Clearance 62.2 mL/min (>60); Glucose 217 mg/dL (74-106); Osmolality,Calculated 288 (275-295); Phosphorous 2.5 mg/dL (2.4-5.1); Potassium 4.4 mMol/L (3.4-5.1); Sodium 137 mMol/L (136-145); eGFR > 60 See Note
[2024-09-11] MEDS: INSULIN LISPRO (AdmeLOG) 1 UNIT/0.01 ML UNIT SC ×3 (07:28→17:15)
[2024-09-11] MEDS: INSULIN LISPRO (AdmeLOG) 1 UNIT/0.01 ML UNIT 7 UNIT SC ×3 (07:28→17:15)
[2024-09-11] MEDS: HEPARIN SOD INJ 5000 UNIT/ML VIAL SC ×2 (08:16→21:20)
[2024-09-11] MEDS: CLOPIDOGREL BISULFATE 75 MG TABLET PO (08:16)
[2024-09-11] MEDS: FINASTERIDE 5 MG TABLET PO (08:17)
[2024-09-11] MEDS: ASPIRIN EC 81 MG TABEC PO (08:17)
--- NOTE | 2024-09-11 08:49 | ESPR_ITS ---
Documentation for date of: 09/11/24 Subjective Subjective Interval history: Patient is [place]auan-speaking and translated with the help of daughter- work measurement engineer Mr. Marc is a 74-year-old man with significant past medical history of longstanding hypertension, uncontrolled diabetes mellitus x years, dyslipidemia, diabetic neuropathy//CKD III- under my care, diabetic retinopathy, diabetic foot wound since early 2024- ( rt toe amputation, subsequently right metatarsal amputation-under wound care center with hyperbaric oxygen) no improvement presented to the emergency department with worsening of the wound on the right foot brought by the daughter. Denies fever, shortness of breath, nausea, vomiting, palpitations, or diarrhea. In the hospital patient was seen by Dr. Miller who did I&D with the purulent drainage. Blood sugars have been significantly elevated between 200-500 despite giving insulin and high doses. Patient on a consistent carb low diet. Medications and labs have been reviewed. Renal consultation requested for JULIO on CKD in the setting of poorly controlled diabetes. Past medical history: Hypertension, diabetes mellitus, dyslipidemia, diabetic neuropathy, diabetic retinopathy Past surgical history: CABG Social history: Denies smoking, alcohol, other illicit drug abuse 09/06/2024 WBC 31, hemoglobin 10.6, platelets 682. Sodium 136, potassium 4.2, BUN 36, creatinine 1.4, blood sugar 341, calcium 9.3, phosphorus 2.4, magnesium 2.1, LFTs normal, albumin 3.1, urinalysis shows significant proteinuria and glucosuria. Echocardiogram showed ejection fraction 55% peripheral arterial Doppler showed severe peripheral vascular disease. Venous Doppler showed no DVT in both legs foot MRI showed questionable early osteomyelitis. 09/08/2024 patient currently seen in medical floor. Sugar seems to be much better today. Insulin dose adjusted by primary team creatinine stable at 1.3. Had a long conversation with patient and family regarding right BKA for his right foot metatarsal stump infection. He seems to be in agreement. Conveyed the same to Dr. Miller and primary team. Blood pressure 119/67, blood sugar this morning was very low. WBC 20.8, hemoglobin 8.6, platelets 492. Albumin 2.6 09/09/2024: patient seen and examined at bedside, blood glucose 223 in the AM, insulin dose adjusted per primary team, Cr 1.4. , BUN 53 from 44. UOP 1400. plan for BKA or RLE today, NPO pending surgery with Dr. Miller 09/10/2024: Patient seen and examined at bedside, blood glucose 330 in the AM, patient received 30 units glargine at bedtime yesterday. primary team will restart DM medications. patient is s/p Right BKA with Dr. Miller. patient reports no fevers, chills, pain. pending discharge likely tomorrow per Dr. Miller, dressing change tomorrow. ID consulted, per Dr. Blankenship, ok for all po regimen of keflex 1000 tid for 3 days after amputation 09/11/2024: Patient seen and examined at bedside, sitting upright, after finishing breakfast, blood glucose in the AM was 192. pt reports no fevers, chills, pain. Pt is s/p bka with dr. Miller on 09/09, no systemic signs of infxn, leukocytosis downtrending. continues on keflex per Dr. Blankenship recandrés, likely discharge tomorrow to snf Exam Vital Signs Temp Pulse Resp BP Pulse Ox O2 Del Method O2 Flow Rate 97.8 F 70 17 133/83 H 96 Nasal Cannula 1 09/11/24 08:00 09/11/24 08:17 09/11/24 08:00 09/11/24 08:17 09/11/24 08:00 09/11/24 08:00 09/11/24 08:00 Narrative Exam General: Alert, no acute distress. more interactive during exam and interview. Skin: Warm, dry, intact, no obvious rash.Gluteal cleft bed sore (followed by wound care) , L heel wound, Head: Normocephalic, atraumatic. Eye: Normal conjunctiva, Cardiovascular: Regular rate and rhythm, no murmur, Respiratory: Lungs are clear to auscultation, respirations unlabored, no crackles, no wheezing. Gastrointestinal: Soft, nontender, non-distended. No guarding or rebound tenderness. Extremities: No edema, no cyanosis, no clubbing. 2+ radial pulse bilaterally. s/p R BKA, dressed. Neuro: No focal deficits observed. Conversant, moving all extremities. No overt cerebellar signs/incoordination. Psychiatric: Cooperative, appropriate affect. Objective Labs 09/11/24 05:11 09/11/24 05:11 Labs: Laboratory Results - last 24 hr 09/11/24 05:11 WBC 13.2 H RBC 2.89 L Hgb 8.5 L Hct 25.8 L MCV 89 MCH 29.4 MCHC 32.9 RDW Std Deviation 50.7 H Plt Count 465 H D Neut % (Auto) 56 Lymph % (Auto) 26 [place] % (Auto) 13 H Eos % (Auto) 0 Baso % (Auto) 0 Neut # (Auto) 7.4 Lymph # (Auto) 3.4 [place] # (Auto) 1.7 H Eos # (Auto) 0.0 Baso # (Auto) 0.0 Immature Gran # (Auto) 0.63 H Absolute Nucleated RBC 0.00 Immature Gran % 5 H Nucleated RBC % 0 Sodium 137 Potassium 4.4 Chloride 102 Carbon Dioxide 27.1 Anion Gap 8 BUN 33 H Creatinine 1.1 Estim Creat Clear Calc 62.2 eGFR > 60 BUN/Creatinine Ratio 30 H Glucose 217 H D Calculated Osmolality 288 Calcium 8.3 Corrected Calcium 9.3 Phosphorus 2.5 Albumin 2.7 L Quality Measures Quality Measures sepsis Current suspected stage: ruled out Possible source: bone/joint, genitourinary and skin/soft tissue Blood cultures ordered: yes Antibiotic ordered: Yes Advance care planning discussed with:: patient and child Assessment & Plan Assessment Current Active Medications: Generic Name Dose Route Start Last Admin Trade Name Freq PRN Reason Stop Dose Admin Acetaminophen 650 mg 09/01/24 22:20 09/06/24 05:50 Acetaminophen 325 Mg Tablet PO 10/01/24 22:19 650 mg Q6H PRN Administration PAIN SCALE 1-3 (mild Amlodipine Besylate 10 mg 09/07/24 09:00 09/11/24 08:17 Amlodipine Besylate 5 Mg Tablet PO 10/07/24 08:59 10 mg QDAY ALEXIS Administration Aspirin 81 mg 09/02/24 09:00 09/11/24 08:17 Aspirin Ec 81 Mg Tabec PO 10/02/24 08:59 81 mg QDAY ALEXIS Administration Bisacodyl 5 mg 09/06/24 09:00 09/11/24 08:17 Bisacodyl 5 Mg Tabec PO 10/06/24 08:59 5 mg QDAY ALEXIS Administration Protocol Cephalexin HCl 1,000 mg 09/09/24 14:00 09/11/24 05:23 Cephalexin 250 Mg Capsule PO 09/12/24 13:00 1,000 mg TID ALEXIS Administration Clopidogrel Bisulfate 75 mg 09/11/24 09:00 09/11/24 08:16 Clopidogrel Bisulfate 75 Mg Tablet PO 10/11/24 08:59 75 mg QDAY ALEXIS Administration Dextrose 25 ml 09/03/24 11:13 09/06/24 20:55 Dextrose 50%-Water Inj 50 Ml Syringe IV 10/03/24 11:12 25 ml Q15MIN PRN Administration BG 50-70 responsive npo pt Dextrose 50 ml 09/03/24 11:13 Dextrose 50%-Water Inj 50 Ml Syringe IV 10/03/24 11:12 Q15MIN PRN BG <50 OR BG <70 & pt unresponsive Finasteride 5 mg 09/02/24 09:00 09/11/24 08:17 Finasteride 5 Mg Tablet PO 10/02/24 08:59 5 mg QDAY ALEXIS Administration Glucagon 1 mg 09/03/24 11:13 Glucagon Inj 1 Mg Vial IM Q15MIN PRN BG <70, and no IV access Heparin Sodium (Porcine) 5,000 unit 09/02/24 09:00 09/11/24 08:16 Heparin Sod Inj 5000 Unit/Ml Vial SC 09/16/24 08:59 5,000 unit Q12HR ALEXIS Administration Insulin Glargine 35 unit 09/10/24 21:00 09/10/24 21:29 Insulin Glargine (Lantus) 5 Unit/0.05 Ml (Per 5 Units) CT 10/10/24 20:59 35 unit HS [facility] Administration Insulin Human Lispro 0 unit 09/09/24 21:00 09/11/24 07:28 Insulin Lispro (Admelog) 1 Unit/0.[address] 10/09/24 20:59 3 unit ACHS [facility] Administration Protocol Insulin Human Lispro 7 unit 09/10/24 11:30 09/11/24 07:28 Insulin Lispro (Admelog) 1 Unit/0.[address] 10/10/24 11:29 7 unit AC ALEXIS Administration Lisinopril 40 mg 09/05/24 09:00 09/11/24 08:17 Lisinopril 20 Mg Tablet PO 10/05/24 08:59 40 mg QDAY ALEXIS Administration Metoclopramide HCl 10 mg 09/06/24 00:50 09/06/24 02:30 Metoclopramide Inj 5 Mg/Ml Vial 2 Ml IVP 10/06/24 00:49 10 mg Q8HR PRN Administration NAUSEA OR VOMITING Protocol Morphine Sulfate 1 mg 09/09/24 20:24 09/11/24 00:00 Morphine Sulf Inj 10 Mg/Ml Vial IVP 09/14/24 20:23 1 mg Q3HR PRN Administration PAIN SCALE 7-10 (Severe Ondansetron HCl 4 mg 09/06/24 11:00 Ondansetron Inj 2 Mg/Ml Inj 2 Ml IVP 10/06/24 10:59 Q6HR PRN NAUSEA OR VOMITING Protocol Oxycodone/Acetaminophen 1 tab 09/09/24 20:24 09/10/24 19:46 Oxycodone/Apap 5/325 Tablet PO 09/14/24 20:23 1 tab Q6HR PRN Administration PAIN SCALE 7-10 (Severe Sennosides 1 tab 09/01/24 22:20 09/05/24 05:23 Senna Tablet PO 10/01/24 22:19 1 tab QDAY PRN Administration constipation Protocol Sertraline HCl 50 mg 09/02/24 21:00 09/10/24 21:28 Sertraline Hcl 25 Mg Tablet PO 10/02/24 20:59 50 mg HS ALEXIS Administration Sitagliptin Phosphate 100 mg 09/08/24 09:00 09/11/24 08:16 Sitagliptin Phosphate 50 Mg Tablet PO 10/08/24 08:59 100 mg QDAY ALEXIS Administration Plan Mr. Marc 74-year-old man with significant past medical history of longstanding hypertension, uncontrolled diabetes mellitus, dyslipidemia, diabetic neuropathy, diabetic retinopathy, diabetic foot presented to the hospital with a chief complaints of worsening of his wound on right foot stump, s/p R BKA with Dr. Miller 09/09 no signs of systemic infection, afebrile, plan for dispo to snf. # JULIO on CKDIII- resolved Creatinine markedly improved. Underlying CKD from diabetic nephropathy. 09/10 Cr. 1.2 09/11 Cr 1.1 Urine Cr: 59 Urine Protein: 36 Gave iron, Procrit for anemia of chronic kidney disease #s/p R BKA 09/09/24 w/Dr Miller #Diabetic right foot with Early osteomyelitis of the stump with PVD -Patient had history of chronic rt diabetic foot -Patient is following with the wound care -Patient noticed recent worsening of the wound with foul-smelling discharge from it since 4 days before the day of admission -Denies fever, nausea, vomiting, palpitations, shortness of breath -Had a long conversation with the patient and daughter-might benefit from right BKA to avoid multiple surgeries due to his severe peripheral vascular disease. -s/p R BKA, dressing in place, pain well controlled. pending discharge to snf. PLAN: - s/p BKA with Dr. Miller 09/09, plan for dressing change tomorrow, dispo to snf - wound care consulted, appreciate recs. # Uncontrolled diabetes mellitus A1c on 04/06/2024 is 13.1 A1c: 08/2024-A1c 8.6. sugars previously noted at 500 during this admission 8/4 AM gluc 223 8/5 AM gluc 330 8/6 AM gluc 192 -Patient is currently on insulin, managed per primary team Glargine 30 units QHS -continue Januvia (sitagliptan 100mg qd) -consider low-dose glipizide 5mg BID -Hypoglycemia protocol in place # History of hypertension -Blood pressure at the time of admission is 136/74 mmHg -Patient is using metoprolol and lisinopril at home Plan -Currently on amlodipine, lisinopril # History of CAD s/p CABG -Patient is using aspirin and atorvastatin at home. #Dyslipidemia -Lipid profile is within normal limits on 04/06/2024 cont atorvastatin 20 mg qhs Plan of care discussed with primary team Plan discussed with nephrology attending Dr. Sharon Villegas MD Internal Medicine PGY-1 Attending Provider Attestation/Addendum Patient seen and examined with resident physician Dr. Villegas. Note reviewed, agree with findings and recommendations. Patient comfortable. s/p right BKA today with Dr. Miller Blood sugars are high and blood pressure seems to be stable. Creatinine stable. Spoke to team-continue with Januvia Patient will need to go to rehab temporarily.
--- NOTE | 2024-09-11 10:09 | ESPR_ITS ---
<Statement entered by Aida Farr MD - 09/11/24 21:14> Pt is seen at bedside, denies any pain at the surgical site. The surgical site (BKA) is clean and dry. will continue cephalexin today. Pt is now decided to go to rehab short term for further physical therapy as he feels weak during his hospital stay. Pending SNF placement. Patient was seen and examined by me personally. I have directly supervised and reviewed documentation by the team resident and agree with its findings. Plan of care was discussed with the attending, Dr. Rhett Farr, PGY-2 Documentation for date of: 09/11/24 Subjective Subjective Interval history: Overnight events: No acute events overnight. Patient was seen and examined at bedside. AM vitals and labs reviewed. Patient has no complaints at this time. Breathing comfortably on 1L NC. Pending dressing change by general surgery and SNF placement. Will complete last day of cephalexin. Review of systems otherwise negative except for what is mentioned above. Exam Vital Signs Temp Pulse Resp BP Pulse Ox O2 Del Method O2 Flow Rate 97.8 F 70 17 133/83 H 96 Nasal Cannula 1 09/11/24 08:00 09/11/24 08:17 09/11/24 08:00 09/11/24 08:17 09/11/24 08:00 09/11/24 08:00 09/11/24 08:00 Narrative Exam Physical Exam: General: Alert, no acute distress. Skin: Warm, dry, intact, no obvious rash. Head: Normocephalic, atraumatic. Eye: Normal conjunctiva, PERRL. Cardiovascular: Regular rate and rhythm, no murmur, +S1/S2. Respiratory: Lungs are clear to auscultation, respirations unlabored, no crackles, no wheezing. Gastrointestinal: Soft, nontender, non-distended. No guarding or rebound tenderness. Extremities: No edema, no cyanosis, no clubbing. 2+ radial pulse bilaterally, R ight BKA. Neuro: No focal deficits observed. Conversant, moving all extremities. No overt cerebellar signs/incoordination. Psychiatric: Cooperative, appropriate affect. Objective Labs 09/11/24 05:11 09/11/24 05:11 Labs: Laboratory Results - last 24 hr 09/11/24 05:11 WBC 13.2 H RBC 2.89 L Hgb 8.5 L Hct 25.8 L MCV 89 MCH 29.4 MCHC 32.9 RDW Std Deviation 50.7 H Plt Count 465 H D Neut % (Auto) 56 Lymph % (Auto) 26 Sunflower % (Auto) 13 H Eos % (Auto) 0 Baso % (Auto) 0 Neut # (Auto) 7.4 Lymph # (Auto) 3.4 Sunflower # (Auto) 1.7 H Eos # (Auto) 0.0 Baso # (Auto) 0.0 Immature Gran # (Auto) 0.63 H Absolute Nucleated RBC 0.00 Immature Gran % 5 H Nucleated RBC % 0 Sodium 137 Potassium 4.4 Chloride 102 Carbon Dioxide 27.1 Anion Gap 8 BUN 33 H Creatinine 1.1 Estim Creat Clear Calc 62.2 eGFR > 60 BUN/Creatinine Ratio 30 H Glucose 217 H D Calculated Osmolality 288 Calcium 8.3 Corrected Calcium 9.3 Phosphorus 2.5 Albumin 2.7 L Quality Measures Quality Measures sepsis Current suspected stage: ruled out Possible source: bone/joint, genitourinary and skin/soft tissue Blood cultures ordered: yes Antibiotic ordered: Yes Advance care planning discussed with:: patient Assessment & Plan Assessment Current Active Medications: Generic Name Dose Route Start Last Admin Trade Name Freq PRN Reason Stop Dose Admin Acetaminophen 650 mg 09/01/24 22:20 09/06/24 05:50 Acetaminophen 325 Mg Tablet PO 10/01/24 22:19 650 mg Q6H PRN Administration PAIN SCALE 1-3 (mild Amlodipine Besylate 10 mg 09/07/24 09:00 09/11/24 08:17 Amlodipine Besylate 5 Mg Tablet PO 10/07/24 08:59 10 mg QDAY ALEXIS Administration Aspirin 81 mg 09/02/24 09:00 09/11/24 08:17 Aspirin Ec 81 Mg Tabec PO 10/02/24 08:59 81 mg QDAY ALEXIS Administration Bisacodyl 5 mg 09/06/24 09:00 09/11/24 08:17 Bisacodyl 5 Mg Tabec PO 10/06/24 08:59 5 mg QDAY ALEXIS Administration Protocol Cephalexin HCl 1,000 mg 09/09/24 14:00 09/11/24 05:23 Cephalexin 250 Mg Capsule PO 09/12/24 13:00 1,000 mg TID ALEXIS Administration Clopidogrel Bisulfate 75 mg 09/11/24 09:00 09/11/24 08:16 Clopidogrel Bisulfate 75 Mg Tablet PO 10/11/24 08:59 75 mg QDAY ALEXIS Administration Dextrose 25 ml 09/03/24 11:13 09/06/24 20:55 Dextrose 50%-Water Inj 50 Ml Syringe IV 10/03/24 11:12 25 ml Q15MIN PRN Administration BG 50-70 responsive npo pt Dextrose 50 ml 09/03/24 11:13 Dextrose 50%-Water Inj 50 Ml Syringe IV 10/03/24 11:12 Q15MIN PRN BG <50 OR BG <70 & pt unresponsive Finasteride 5 mg 09/02/24 09:00 09/11/24 08:17 Finasteride 5 Mg Tablet PO 10/02/24 08:59 5 mg QDAY ALEXIS Administration Glucagon 1 mg 09/03/24 11:13 Glucagon Inj 1 Mg Vial IM Q15MIN PRN BG <70, and no IV access Heparin Sodium (Porcine) 5,000 unit 09/02/24 09:00 09/11/24 08:16 Heparin Sod Inj 5000 Unit/Ml Vial SC 09/16/24 08:59 5,000 unit Q12HR ALEXIS Administration Insulin Glargine 35 unit 09/10/24 21:00 09/10/24 21:29 Insulin Glargine (Lantus) 5 Unit/0.05 Ml (Per 5 Units) [place] 10/10/24 20:59 35 unit HS ALEXIS Administration Insulin Human Lispro 0 unit 09/09/24 21:00 09/11/24 07:28 Insulin Lispro (Admelog) 1 Unit/0.01 Ml Unit [place] 10/09/24 20:59 3 unit ACHS [facility] Administration Protocol Insulin Human Lispro 7 unit 09/10/24 11:30 09/11/24 07:28 Insulin Lispro (Admelog) 1 Unit/0.01 Ml Unit [place] 10/10/24 11:29 7 unit AC [facility] Administration Lisinopril 40 mg 09/05/24 09:00 09/11/24 08:17 Lisinopril 20 Mg Tablet PO 10/05/24 08:59 40 mg QDAY ALEXIS Administration Metoclopramide HCl 10 mg 09/06/24 00:50 09/06/24 02:30 Metoclopramide Inj 5 Mg/Ml Vial 2 Ml IVP 08/31/25 00:49 10 mg Q8HR PRN Administration NAUSEA OR VOMITING Protocol Morphine Sulfate 1 mg 09/09/24 20:24 09/11/24 00:00 Morphine Sulf Inj 10 Mg/Ml Vial IVP 09/14/24 20:23 1 mg Q3HR PRN Administration PAIN SCALE 7-10 (Severe Ondansetron HCl 4 mg 09/06/24 11:00 Ondansetron Inj 2 Mg/Ml Inj 2 Ml IVP 10/06/24 10:59 Q6HR PRN NAUSEA OR VOMITING Protocol Oxycodone/Acetaminophen 1 tab 09/09/24 20:24 09/10/24 19:46 Oxycodone/Apap 5/325 Tablet PO 09/14/24 20:23 1 tab Q6HR PRN Administration PAIN SCALE 7-10 (Severe Sennosides 1 tab 09/01/24 22:20 09/05/24 05:23 Senna Tablet PO 10/01/24 22:19 1 tab QDAY PRN Administration constipation Protocol Sertraline HCl 50 mg 09/02/24 21:00 09/10/24 21:28 Sertraline Hcl 25 Mg Tablet PO 10/02/24 20:59 50 mg HS ALEXIS Administration Sitagliptin Phosphate 100 mg 09/08/24 09:00 09/11/24 08:16 Sitagliptin Phosphate 50 Mg Tablet PO 10/08/24 08:59 100 mg QDAY ALEXIS Administration Plan Mr. Marc is a 74 year old gentleman with a past history of PAD, HTN, T2DM, HLD, and s/p amputation of right metatarsals who presented to the ED with concerns of generalized weakness and AMS. The patient was admitted for sepsis management due to osteomyelitis of right foot and urinary tract infection. #Right foot osteomyelitis at right transmetatarsal amuptation site #s/p right transmetatarsal amputation #Sepsis (resolving) #SIRs Criteria (resolving) #R. Plantar Edema (resolved) #Eschar of right heel (resolved) #Leukocytosis (resolving) Patient had difficulty healing his right foot after toe amputation to metatarsals about 2 months ago. The poor healing was likely due to the patient's history of peripheral artery disease. The patient presented with fever of 103.8, heart rate 112, and WBC 23.2 in the ED with source of infection (right foot) and evidence of endorgan damage in elevated creatinine. Foot x-ray done in ED showed cortical bone destruction of distal metatarsals in right foot, further suggesting osteomyelitis. Active pus in right foot, black escar of right heel, and erythematous right foot support signs of active infection in patient. qSofa 1 w/ end organ damage JULIO on CKD and lactic acid. Patient had a temperature of 103.8F, HR of 112, RR of 22, and WBC of 23.2 ED prior to admission to [facility]. This satisfies all 4 elements of SIRS criteria. Initially the patient's active source of infection is right TMA stump and UTI, along with lactic acidosis of 5.3 on 09/02/24. This fits criteria of sepsis [SIRS + source + lactic acidosis] but without septic shock due to mostly elevated BP throughout stay. ? Current antibiotic(s): Cephalexin 1 gm TID [09/09-09/11] ? Previous antibiotic(s): ? Metronidazole 500 mg TID [09/06-09/09] ? Doxycycline 100 mg BID [09/06-09/09] ? Ceftriaxone 2 gm daily [09/02-09/09] ? Vancomycin [09/02-09/06] ? Piperacillin/tazobactam [09/02-09/06] ? Blood cultures x 2 drawn 09/01; no growth after 5 days ? Right foot wound culture collected 09/02 ? Preliminary results 09/03: Gram-positive cocci [empiric antibiotic coverage: Piperacillin/tazobactam & vancomycin] ? Results 09/05: Micrococcus and related genera ? Foot x-ray 09/01 and foot MRI 09/02 support osteomyelitis at transmetatarsal amputation site ? General Surgery Consulted, Dr. Miller, appreciate recommendations ? I&D performed 09/04, initially planned for wound vac 09/09, but family decided to pursue right BKA ? Right BKA 09/09 ? Cardiology consulted for surgery clearance, appreciate recommendations ? Infectious disease Consulted, Dr. Blankenship, appreciate recommendations ? ID previously recommended treatment through 10/17 with p.o. Flagyl 500mg TID, p.o. doxycycline 100mg BID, and IV Rocephin 2gm daily ? ID now recommends 3-day course of cephalexin 1 g 3 times daily in light of patient pursuing right BKA ? Ordered ESR and CRP 09/06 for uptrending WBC #Urinary tract infection (E. Coli) Patient had urinalysis performed in ED, which showed WBC 134 with 4+ bacteria, positive urine nitrate, 3+ glucose, and 1+ protein. Due to patient's altered mental status, will monitor and manage with antibiotic treatment. ? Initially managed with ceftriaxone started on 09/01, swap to piperacillin/tazobactam on 09/02, stopped piperacillin/tazobactam 09/06 ? Will monitor progression with CBC and daily examinations ? Urine culture taken on 09/01 shows E. coli #JULIO on CKD, likely secondary to sepsis vs dehydration (resolving) #Metabolic Acidosis, anion gap, secondary to Lactic Acidosis (resolved) Patient presented with BUN 35, creatinine 1.4, GFR 53. Possible explanations as to why include decreased blood flow due to sepsis from patient's osteomyelitis and/or urinary tract infection or decreased fluid intake due to altered mental status. Patient has slightly decreased bicarb at 19.6 with an anion gap, likely due to elevated lactic acid at 5.3. ? Will monitor with daily renal panel ? IV hydration with NS due to worsening of renal function 09/05 ? Will renally dose medication and avoid nephrotoxic medication ? Consulted nephrology, appreciate recommendations #Primary Hypertension Patient has a history of hypertension and initial vitals taken in the ED showed blood pressure of 160/80. ? Restarted patient's home lisinopril 40 mg daily further improvement of JULIO noted on 09/04 ? Increased amlodipine to 10 mg daily #Anemia of chronic disease #In the setting of CKD Patient had decreased H&H of 10.3/31.6 with MCV of 90. Iron panel abnormal with iron at 12, UIBC 134, iron saturation 8%, ferritin 726. Plan ? No iron tablets, given concern for sepsis ? Will monitor with daily CBC ? Will transfuse if hemoglobin drops below 7 per protocol #Hyperglycemia #Insulin dependent Type 2 diabetes mellitus #Diabetic neuropathy Patient has reported history of type 2 diabetes mellitus and diabetic neuropathy that likely led to transmetatarsal amputation. Home glargine 20 units, Glipizide, and Januvia. Plan ? Continue insulin glargine to 35 units at night ? Continue insulin lispro to 7 units with meals ? Continue to monitor fasting blood glucose ? Patient had episodes of hyperglycemia after I&D on 09/04, educated patient on the importance of not consuming outside hospital food while inpatient ? Nephrology restarted patient's home Januvia and Ozempic ? Continue to hold home glipizide #Hyperlipidemia #History of peripheral artery disease #History of thrombus in RLE Patient was reported to have a history of hyperlipidemia on home atorvastatin 20 mg. Patient's family reports that the patient received surgical care at [facility] in [place], [place] as they have specialists to manage peripheral artery disease in patients who require amputations in the lower extremities. 1+ pedal pulse noted in bilateral lower extremities. Likely a contributor to poor wound healing post transmetatarsal amputation, which likely contributed to infection that led to osteomyelitis. ? Held home atorvastatin 20 mg ? US LE veins 09/02 negative for DVT ? US LE arteries positive for right popliteal monophasic flow and left posterior tibial artery monophasic flow, but left and right ENRRIQUE greater than 0.9 #Hypophosphatemia (resolved) Patient had phosphorus of 2.1 on 08/25 9 AM labs. ? Ordered potassium phosphate packet [Neutra-Phos] one-time dose 09/03 ? Will monitor with a.m. phosphorus levels #Thrombocytosis (resolved) Patient has elevated platelet count at 509 on 09/02 likely reactive secondary to acute infection. ? Will monitor with daily CBC #Constipation (resolved) Patient has bowel movements every few days per family members. Patient responds well to home bisacodyl 5mg PRN. ? Continue bisacodyl 10 mg daily ? Ordered docusate 100 mg, senna/docusate tablet, warm water enema, and glycerin suppository one-time doses to encourage bowel movement on 09/06 #Hypomagnesemia (resolved) Patient had magnesium of 1.4 on 09/04. ? Ordered magnesium repletion with 2 gm magnesium sulfate IV once 09/04 and start 400 mg magnesium oxide daily. Stopped on 09/08. DVT Prophylaxis: Heparin GI Prophylaxis: N/A Diet: Carbohydrate consistent low [place]: Yes Lines: Peripheral IV Antibiotics: Cephalexin Code Status: FULL Reason for Hospitalization: Sepsis due to osteomyelitis and UTI Other Barriers to Discharge: Right BKA dressing change & SNF placement Patient plan of care was discussed with the senior resident Dr. Farr (PGY-2) and attending physician Dr. Galindo. Mando Lima, PGY1 Attending Provider Attestation/Addendum I attest that I was physically present for the evaluation, physical examination, lab and imaging review of the patient with the residents. I discussed the case with the residents and agree with the findings and plans of care as documented above. Patient appears comfortable at bedside. Denies any new complaints. Underwent dressing change with general surgery today. BKA site looks clean and dry. Continues to be on cephalexin. Awaiting placement. Joel Delaney MD
--- NOTE | 2024-09-11 10:54 | PC.SS ---
Addendum entered by Esther Otoole 09/11/24 14:46: SS received call from Ender an sr. manager marketing from [facility] and assessment has been closed. SS has sent PASRR and updated PT notes to [facility] and they have started insurance auth. Original Note: Follow up note: SS met with Renea amado at bedside regarding SNF options for SNF. Pt was accepted to [facility], [facility], and [facility] Vitale from [facility]. Daughter's choice is [facility]. SS spoke to Domi from [facility] who explained updated PT notes are required and PASRR assessment. PASRR assessment has been initiated and pt is Level II Mental Health Evaluation referral is required. SS spoke to Domi who states PASRR assessment requires to be closed to start insurance authorization. PASRR assessment has been signed an sr. manager marketing yet.
--- NOTE | 2024-09-11 12:56 | PD.SURPROG ---
Documentation for date of: 09/11/24 Subjective Subjective Brief History: 74M with HTN, HLD, DMII, TIA, CKD and PAD who initially underwent right great toe amputation April 2024, followed by TMA by Dr. Bravo in [place] 2 months later. Patient had been following with Dr. Bravo however due to insurance issues he is no longer able to see him. Patient has also been seen by Dr. Nobles vascular surgeon. Patient was brought to ER yesterday because his daughter noted he was more weak and that the foot was becoming more red. Patient has noted to have leukocytosis in the 20s, UA with pyuria and x-ray showing osteomyelitis of the amputated metatarsals. He developed tachycardia during this admission, read as atrial fibrillation and he was transferred to telemetry, with heart rate now well-controlled PMH: HLD, HTN, DMII, CKD, CAD, TIA in 2021, PAD, BPH, and depression PSH: Open heart valve replacement in 2008, CABG, R great toe amputation and TMA earlier this year Meds: currently taking ASA 81mg, no other antiplt during this hospitalization Allergies: NKDA SH: Lives with daughter, not ambulatory at the moment Narrative: Pain controlled, Hgb stable Exam Vital Signs Temp Pulse Resp BP Pulse Ox O2 Del Method O2 Flow Rate 97.6 F 84 16 109/52 L 98 Nasal Cannula 1 09/11/24 11:09/11/24 12:09/11/24 11:09/11/24 11:09/11/24 11:09/11/24 11:09/11/24 11:00 Constitutional Constitutional: no acute distress Routine Respiratory Exam Respiratory: Present no resp distress Routine Extremities Exam Comments: R BKA stump with johnathan c/d/i, no erythema, no bleeding or drainage Results Results: Laboratory Laboratory results: results reviewed Assessment & Plan Plan 74M with HTN, HLD, DMII, TIA, CKD and PAD who initially underwent right great toe amputation April 2024, followed by TMA by Dr. Bravo in [place] 2 months later, presenting with osteomyelitis of the TMA site as well as an eschar of the heel, s/p excisional debridement and drainage 09/04, with worsened erythema and fluctuance of the plantar surface of the foot now s/p R BKA 09/09, recovering well OK for dc from my standpoint Will f/u in my office 09/30 for staple removal PROCEDURES: Procedures Right below-knee amputation
[2024-09-11] MEDS: SERTRALINE HCL 25 MG TABLET 50 MG PO (21:16)
[2024-09-11] MEDS: INSULIN GLARGINE (Lantus) 5 UNIT/0.05 ML (PER 5 UNITS) 35 UNIT SC (21:19)
[2024-09-12] VITALS (9 sets, daily range): BP systolic 107–134; BP diastolic 52–69; PULSE 71–79; RESP 12–20; TEMP 36.1–36.4; O2SAT 93–99; BMI 12.0
--- NOTE | 2024-09-12 07:17 | PD.RESPRO ---
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 Marc is a 74-year-old man with significant past medical history of longstanding hypertension, uncontrolled diabetes mellitus x years, dyslipidemia, diabetic neuropathy//CKD III- under my care, diabetic retinopathy, diabetic foot wound since early 2024- ( rt toe amputation, subsequently right metatarsal amputation-under wound care center with hyperbaric oxygen) no improvement presented to the emergency department with worsening of the wound on the right foot brought by the daughter. Denies fever, shortness of breath, nausea, vomiting, palpitations, or diarrhea. In the hospital patient was seen by Dr. Miller who did I&D with the purulent drainage. Blood sugars have been significantly elevated between 200-500 despite giving insulin and high doses. Patient on a consistent carb low diet. Medications and labs have been reviewed. Renal consultation requested for JULIO on CKD in the setting of poorly controlled diabetes. Past medical history: Hypertension, diabetes mellitus, dyslipidemia, diabetic neuropathy, diabetic retinopathy Past surgical history: CABG Social history: Denies smoking, alcohol, other illicit drug abuse 09/06/2024 WBC 31, hemoglobin 10.6, platelets 682. Sodium 136, potassium 4.2, BUN 36, creatinine 1.4, blood sugar 341, calcium 9.3, phosphorus 2.4, magnesium 2.1, LFTs normal, albumin 3.1, urinalysis shows significant proteinuria and glucosuria. Echocardiogram showed ejection fraction 55% peripheral arterial Doppler showed severe peripheral vascular disease. Venous Doppler showed no DVT in both legs foot MRI showed questionable early osteomyelitis. 09/08/2024 patient currently seen in medical floor. Sugar seems to be much better today. Insulin dose adjusted by primary team creatinine stable at 1.3. Had a long conversation with patient and family regarding right BKA for his right foot metatarsal stump infection. He seems to be in agreement. Conveyed the same to Dr. Miller and primary team. Blood pressure 119/67, blood sugar this morning was very low. WBC 20.8, hemoglobin 8.6, platelets 492. Albumin 2.6 09/09/2024: patient seen and examined at bedside, blood glucose 223 in the AM, insulin dose adjusted per primary team, Cr 1.4. , BUN 53 from 44. UOP 1400. plan for BKA or RLE today, NPO pending surgery with Dr. Miller 09/10/2024: Patient seen and examined at bedside, blood glucose 330 in the AM, patient received 30 units glargine at bedtime yesterday. primary team will restart DM medications. patient is s/p Right BKA with Dr. Miller. patient reports no fevers, chills, pain. pending discharge likely tomorrow per Dr. Miller, dressing change tomorrow. ID consulted, per Dr. Blankenship, ok for all po regimen of keflex 1000 tid for 3 days after amputation 09/11/2024: Patient seen and examined at bedside, sitting upright, after finishing breakfast, blood glucose in the AM was 192. pt reports no fevers, chills, pain. Pt is s/p bka with dr. Miller on 09/09, no systemic signs of infxn, leukocytosis downtrending. continues on keflex per Dr. Pattie griffiths, likely discharge tomorrow to snf 09/12/2024: Patient seen and examined at bedside. sitting upright after finishing breakfast. Blood glucose in the am was 86, asymptomatic (getting 7 units short acting scheduled) Pt is s/p BKA with Dr. Miller on 09/09. no systemic signs of infection, Continues on keflex, per Dr. Pattie griffiths, dispo to SNF . pt has not had a BM in 2 days. reccomend d/c flash. will follow up with Dr. Miller on 09/30 for removal of johnathan. Exam Vital Signs Temp Pulse Resp BP Pulse Ox O2 Del Method O2 Flow Rate 97.0 F 71 20 121/69 97 Nasal Cannula 0.5 09/12/24 04:00 09/12/24 06:47 09/12/24 06:47 09/12/24 04:00 09/12/24 06:47 09/12/24 04:00 09/12/24 06:47 Narrative Exam General: Alert, no acute distress. responsive to questions in luxembourgish and some belgian. expresses desire to go to rehab and leave hospital. Skin: Warm, dry, intact, no obvious rash.Gluteal cleft bed sore (followed by wound care) , L heel wound, Head: Normocephalic, atraumatic. Eye: Normal conjunctiva, Cardiovascular: Regular rate and rhythm, no murmur, Respiratory: Lungs are clear to auscultation, respirations unlabored, no crackles, no wheezing. Gastrointestinal: Soft, nontender, non-distended. No guarding or rebound tenderness. Extremities: No edema, no cyanosis, no clubbing. 2+ radial pulse bilaterally. s/p R BKA, dressed (johnathan and suture) Neuro: No focal deficits observed. Conversant, moving all extremities. No overt cerebellar signs/incoordination. Psychiatric: Cooperative, appropriate affect. Objective Labs 09/11/24 05:11 09/11/24 05:11 Quality Measures Quality Measures sepsis Current suspected stage: ruled out Possible source: bone/joint, genitourinary and skin/soft tissue Blood cultures ordered: yes Antibiotic ordered: Yes Advance care planning discussed with:: patient Assessment & Plan Assessment Current Active Medications: Generic Name Dose Route Start Last Admin Trade Name Freq PRN Reason Stop Dose Admin Acetaminophen 650 mg 09/01/24 22:20 09/06/24 05:50 Acetaminophen 325 Mg Tablet PO 10/01/24 22:19 650 mg Q6H PRN Administration PAIN SCALE 1-3 (mild Amlodipine Besylate 10 mg 09/07/24 09:00 09/11/24 08:17 Amlodipine Besylate 5 Mg Tablet PO 10/07/24 08:59 10 mg QDAY ALEXIS Administration Aspirin 81 mg 09/02/24 09:00 09/11/24 08:17 Aspirin Ec 81 Mg Tabec PO 10/02/24 08:59 81 mg QDAY ALEXIS Administration Bisacodyl 5 mg 09/06/24 09:00 09/11/24 08:17 Bisacodyl 5 Mg Tabec PO 10/06/24 08:59 5 mg QDAY ALEXIS Administration Protocol Cephalexin HCl 1,000 mg 09/09/24 14:00 09/12/24 05:12 Cephalexin 250 Mg Capsule PO 09/12/24 13:00 1,000 mg TID ALEXIS Administration Clopidogrel Bisulfate 75 mg 09/11/24 09:00 09/11/24 08:16 Clopidogrel Bisulfate 75 Mg Tablet PO 10/11/24 08:59 75 mg QDAY ALEXIS Administration Dextrose 25 ml 09/03/24 11:13 09/06/24 20:55 Dextrose 50%-Water Inj 50 Ml Syringe IV 10/03/24 11:12 25 ml Q15MIN PRN Administration BG 50-70 responsive npo pt Dextrose 50 ml 09/03/24 11:13 Dextrose 50%-Water Inj 50 Ml Syringe IV 10/03/24 11:12 Q15MIN PRN BG <50 OR BG <70 & pt unresponsive Finasteride 5 mg 09/02/24 09:00 09/11/24 08:17 Finasteride 5 Mg Tablet PO 10/02/24 08:59 5 mg QDAY ALEXIS Administration Glucagon 1 mg 09/03/24 11:13 Glucagon Inj 1 Mg Vial IM Q15MIN PRN BG <70, and no IV access Heparin Sodium (Porcine) 5,000 unit 09/02/24 09:00 09/11/24 21:20 Heparin Sod Inj 5000 Unit/Ml Vial SC 09/16/24 08:59 5,000 unit Q12HR ALEXIS Administration Insulin Glargine 35 unit 09/10/24 21:00 09/11/24 21:19 Insulin Glargine (Lantus) 5 Unit/0.05 Ml (Per 5 Units) MO 10/10/24 20:59 35 unit HS [facility] Administration Insulin Human Lispro 0 unit 09/09/24 21:00 09/11/24 21:06 Insulin Lispro (Admelog) 1 Unit/0.01 Ml Unit SC 10/09/24 20:59 Not Given ACHS [facility] Protocol Insulin Human Lispro 7 unit 09/10/24 11:30 09/11/24 17:15 Insulin Lispro (Admelog) 1 Unit/0.01 Ml Unit SC 10/10/24 11:29 7 unit AC ALEXIS Administration Lisinopril 40 mg 09/05/24 09:00 09/11/24 08:17 Lisinopril 20 Mg Tablet PO 10/05/24 08:59 40 mg QDAY ALEXIS Administration Metoclopramide HCl 10 mg 09/06/24 00:50 09/06/24 02:30 Metoclopramide Inj 5 Mg/Ml Vial 2 Ml IVP 10/06/24 00:49 10 mg Q8HR PRN Administration NAUSEA OR VOMITING Protocol Morphine Sulfate 1 mg 09/09/24 20:24 09/11/24 00:00 Morphine Sulf Inj 10 Mg/Ml Vial IVP 09/14/24 20:23 1 mg Q3HR PRN Administration PAIN SCALE 7-10 (Severe Ondansetron HCl 4 mg 09/06/24 11:00 Ondansetron Inj 2 Mg/Ml Inj 2 Ml IVP 10/06/24 10:59 Q6HR PRN NAUSEA OR VOMITING Protocol Oxycodone/Acetaminophen 1 tab 09/09/24 20:24 09/10/24 19:46 Oxycodone/Apap 5/325 Tablet PO 09/14/24 20:23 1 tab Q6HR PRN Administration PAIN SCALE 7-10 (Severe Sennosides 1 tab 09/01/24 22:20 09/05/24 05:23 Senna Tablet PO 10/01/24 22:19 1 tab QDAY PRN Administration constipation Protocol Sertraline HCl 50 mg 09/02/24 21:00 09/11/24 21:16 Sertraline Hcl 25 Mg Tablet PO 10/02/24 20:59 50 mg HS ALEXIS Administration Sitagliptin Phosphate 100 mg 09/08/24 09:00 09/11/24 08:16 Sitagliptin Phosphate 50 Mg Tablet PO 10/08/24 08:59 100 mg QDAY ALEXIS Administration Plan Mr. Marc 74-year-old man with significant past medical history of longstanding hypertension, uncontrolled diabetes mellitus, dyslipidemia, diabetic neuropathy, diabetic retinopathy, diabetic foot presented to the hospital with a chief complaints of worsening of his wound on right foot stump, s/p R BKA with Dr. Miller 09/09 no signs of systemic infection, afebrile, plan for dispo to snf. 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 -s/p R BKA, dressing in place, pain well controlled. pending discharge to snf. PLAN: - s/p BKA with Dr. Miller 09/09,dispo to snf - wound care consulted, appreciate recs. -f/u with Dr. Miller 09/30 for removal of johnathan. # Uncontrolled diabetes mellitus- improved A1c on 04/06/2024 is 13.1 A1c: 08/2024-A1c 8.6. sugars previously noted at 500 during this admission 8/4 AM gluc 223 8/5 AM gluc 330 8/6 AM gluc 192 8/7 AM gluc 86- asymptomatic -Patient is currently on insulin, managed per primary team Glargine 30 units QHS Lispro 7 units with meals -continue Januvia (sitagliptan 100mg qd) -Hypoglycemia protocol in place # JULIO on CKDIII- resolved Creatinine markedly improved. Underlying CKD from diabetic nephropathy. 8 Cr. 1.2 8/ Cr 1.1 Urine Cr: 59 Urine Protein: 36 Gave iron, Procrit for anemia of chronic kidney disease # History of hypertension -Blood pressure at the time of admission is 136/74 mmHg -Patient is using metoprolol and lisinopril at home Plan -Currently on amlodipine, lisinopril # History of CAD s/p CABG -Patient is using aspirin and atorvastatin at home. #Dyslipidemia -Lipid profile is within normal limits on 04/06/2024 cont atorvastatin 20 mg qhs Plan of care discussed with primary team Plan discussed with nephrology attending Dr. Sharon Villegas MD Internal Medicine PGY-1 Attending Provider Attestation/Addendum Patient seen and examined with resident physician Dr. Villegas. Note reviewed, agree with findings and recommendations. Patient comfortable. s/p right BKA today with Dr. Miller Blood sugars are high and blood pressure seems to be stable. Creatinine stable. Spoke to team-continue with Januvia Patient agreed to go to rehab temporarily.
[2024-09-12] MEDS: INSULIN LISPRO (AdmeLOG) 1 UNIT/0.01 ML UNIT 7 UNIT SC ×2 (07:57→17:13)
--- NOTE | 2024-09-12 09:00 | ESPR_ITS ---
<Statement entered by Aida Farr MD - 09/12/24 15:17> Patient seen and examined at bedside , denies any pain and his right leg, saturating on room tolerating oral diet. Patient completed course of antibiotics and is currently awaiting SNF placement. Labs are reviewed, leukocyte count is downtrending hemoglobin is stable. Will continue Lantus 35 units at bedtime and lispro 7 units AC. Patient has no other complaints. Patient was seen and examined by me personally. I have directly supervised and reviewed documentation by the team resident and agree with its findings. ------- Plan of care was discussed with the attending, Dr. Mariluz Farr, PGY-2 Documentation for date of: 09/12/24 Subjective Subjective Interval history: Overnight events: No acute events overnight. Patient was seen and examined at bedside. AM vitals and labs reviewed. Patient has no complaints today. Per patient's family, patient had small bowel movement yesterday. Pending placement to SNF. Review of systems otherwise negative except for what is mentioned above. Exam Vital Signs Temp Pulse Resp BP Pulse Ox O2 Del Method O2 Flow Rate 97.6 F 78 16 127/63 98 Nasal Cannula 0.5 09/12/24 12:00 09/12/24 12:00 09/12/24 12:00 09/12/24 12:00 09/12/24 12:00 09/12/24 12:09/12/24 12:00 Narrative Exam Physical Exam: General: Alert, no acute distress. Skin: Warm, dry, intact, no obvious rash. Head: Normocephalic, atraumatic. Eye: Normal conjunctiva, PERRL. Cardiovascular: Regular rate and rhythm, no murmur, +S1/S2. Respiratory: Lungs are clear to auscultation, respirations unlabored, no crackles, no wheezing. Gastrointestinal: Soft, nontender, non-distended. No guarding or rebound tenderness. Extremities: No edema, no cyanosis, no clubbing. 2+ radial pulse bilaterally. R ight BKA. Neuro: No focal deficits observed. Conversant, moving all extremities. No overt cerebellar signs/incoordination. Psychiatric: Cooperative, appropriate affect. Objective Labs 09/11/24 05:11 09/11/24 05:11 Labs: Laboratory Results - last 24 hr 09/09/24 09:10 Crossmatch See Detail Quality Measures Quality Measures sepsis Current suspected stage: ruled out Possible source: bone/joint, genitourinary and skin/soft tissue Blood cultures ordered: yes Antibiotic ordered: No Advance care planning discussed with:: patient and child Assessment & Plan Assessment Current Active Medications: Generic Name Dose Route Start Last Admin Trade Name Eitanq PRN Reason Stop Dose Admin Acetaminophen 650 mg 09/01/24 22:20 09/06/24 05:50 Acetaminophen 325 Mg Tablet PO 10/01/24 22:19 650 mg Q6H PRN Administration PAIN SCALE 1-3 (mild Amlodipine Besylate 10 mg 09/07/24 09:00 09/12/24 09:51 Amlodipine Besylate 5 Mg Tablet PO 10/07/24 08:59 10 mg QDAY ALEXIS Administration Aspirin 81 mg 09/02/24 09:00 09/12/24 09:52 Aspirin Ec 81 Mg Tabec PO 10/02/24 08:59 81 mg QDAY ALEXIS Administration Bisacodyl 5 mg 09/06/24 09:00 09/12/24 09:52 Bisacodyl 5 Mg Tabec PO 10/06/24 08:59 5 mg QDAY ALEXIS Administration Protocol Dextrose 25 ml 09/03/24 11:13 09/06/24 20:55 Dextrose 50%-Water Inj 50 Ml Syringe IV 10/03/24 11:12 25 ml Q15MIN PRN Administration BG 50-70 responsive npo pt Dextrose 50 ml 09/03/24 11:13 Dextrose 50%-Water Inj 50 Ml Syringe IV 10/03/24 11:12 Q15MIN PRN BG <50 OR BG <70 & pt unresponsive Finasteride 5 mg 09/02/24 09:00 09/12/24 09:46 Finasteride 5 Mg Tablet PO 10/02/24 08:59 5 mg QDAY ALEXIS Administration Glucagon 1 mg 09/03/24 11:13 Glucagon Inj 1 Mg Vial IM Q15MIN PRN BG <70, and no IV access Heparin Sodium (Porcine) 5,000 unit 09/02/24 09:00 09/12/24 09:51 Heparin Sod Inj 5000 Unit/Ml Vial SC 09/16/24 08:59 5,000 unit Q12HR ALEXIS Administration Insulin Glargine 35 unit 09/10/24 21:00 09/11/24 21:19 Insulin Glargine (Lantus) 5 Unit/0.05 Ml (Per 5 Units) SC 10/10/24 20:59 35 unit HS ALEXIS Administration Insulin Human Lispro 0 unit 09/09/24 21:00 09/12/24 11:44 Insulin Lispro (Admelog) 1 Unit/0.01 Ml Unit SC 10/09/24 20:59 Not Given ACHS ALEXIS Protocol Insulin Human Lispro 7 unit 09/10/24 11:30 09/12/24 11:49 Insulin Lispro (Admelog) 1 Unit/0.01 Ml Unit SC 10/10/24 11:29 Not Given AC ALEXIS Lisinopril 40 mg 09/05/24 09:00 09/12/24 09:47 Lisinopril 20 Mg Tablet PO 10/05/24 08:59 40 mg QDAY ALEXIS Administration Metoclopramide HCl 10 mg 09/06/24 00:50 09/06/24 02:30 Metoclopramide Inj 5 Mg/Ml Vial 2 Ml IVP 10/06/24 00:49 10 mg Q8HR PRN Administration NAUSEA OR VOMITING Protocol Morphine Sulfate 1 mg 09/09/24 20:24 09/11/24 00:00 Morphine Sulf Inj 10 Mg/Ml Vial IVP 09/14/24 20:23 1 mg Q3HR PRN Administration PAIN SCALE 7-10 (Severe Ondansetron HCl 4 mg 09/06/24 11:00 Ondansetron Inj 2 Mg/Ml Inj 2 Ml IVP 10/06/24 10:59 Q6HR PRN NAUSEA OR VOMITING Protocol Oxycodone/Acetaminophen 1 tab 09/09/24 20:24 09/10/24 19:46 Oxycodone/Apap 5/325 Tablet PO 09/14/24 20:23 1 tab Q6HR PRN Administration PAIN SCALE 7-10 (Severe Sennosides 1 tab 09/01/24 22:20 09/05/24 05:23 Senna Tablet PO 10/01/24 22:19 1 tab QDAY PRN Administration constipation Protocol Sertraline HCl 50 mg 09/02/24 21:00 09/11/24 21:16 Sertraline Hcl 25 Mg Tablet PO 10/02/24 20:59 50 mg HS ALEXIS Administration Sitagliptin Phosphate 100 mg 09/08/24 09:00 09/12/24 09:46 Sitagliptin Phosphate 50 Mg Tablet PO 10/08/24 08:59 100 mg QDAY ALEXIS Administration Plan Mr. Marc is a 74 year old gentleman with a past history of PAD, HTN, T2DM, HLD, and s/p amputation of right metatarsals who presented to the ED with concerns of generalized weakness and AMS. The patient was admitted for sepsis management due to osteomyelitis of right foot and urinary tract infection. #S/p Right BKA, POD 3 #Right foot osteomyelitis #Sepsis - resolved On admission Pt had fever of 103.8, tachycardia, and WBC 23.2 with source of infection (right foot) and evidence of endorgan damage of JULIO. qSofa 1 w/ end organ damage JULIO on CKD and lactic acid 5.3. Foot x-ray showed cortical bone destruction of distal metatarsals in right foot, further suggesting osteomyelitis at right transmetatarsal amuptation site. Active pus in right foot, black eschar of right heel, and erythematous right foot support signs of active infection in patient. -Pt underwent right transmetatarsal amputation with Dr. Oliveira in 04/30, which was poorly healing due to Pt's Hx of severe PAD. ? Pt underwent I&D on 09/04 and right BKA on 09/[address] Miller -ESR adn CRP post I &D are within normal limits Plan: ? Blood cultures x 2 drawn 09/01; no growth after 5 days ? Wound culture grew Micrococcus and related genera ? Pt completed course of appropriate antibiotics ? Antibiotic(s): ? Metronidazole 500 mg TID [09/06-09/09] ? Doxycycline 100 mg BID [09/06-09/09] ? Ceftriaxone 2 gm daily [09/02-09/09] ? Vancomycin [09/02-09/06] ? Piperacillin/tazobactam [09/02-09/06] ? Cephalexin 1 gm TID [09/09-09/11] ? Cardiology consulted for surgery clearance, appreciate recommendations ? Infectious disease Consulted, Dr. Blankenship, appreciate recommendations #Urinary tract infection (E. Coli) - resolved Patient had urinalysis performed in ED, which showed WBC 134 with 4+ bacteria, positive urine nitrate, 3+ glucose, and 1+ protein. Due to patient's altered mental status, will monitor and manage with antibiotic treatment. ? Urine culture grew E. coli -Pt ompleted course of antibitoics during hospitalization #JULIO on CKD, likely secondary to sepsis vs dehydration (resolving) #Metabolic Acidosis, anion gap, secondary to Lactic Acidosis (resolved) Patient presented with BUN 35, creatinine 1.4, GFR 53. Possible explanations as to why include decreased blood flow due to sepsis from patient's osteomyelitis and/or urinary tract infection or decreased fluid intake due to altered mental status. Patient has slightly decreased bicarb at 19.6 with an anion gap, likely due to elevated lactic acid at 5.3. ? Will monitor with daily renal panel ? IV hydration with NS due to worsening of renal function 09/05 ? Will renally dose medication and avoid nephrotoxic medication ? Consulted nephrology, appreciate recommendations -Pt is being seen by Dr. Herrera as primary as well as nephrology outpatient #Primary Hypertension Patient has a history of hypertension and initial vitals taken in the ED showed blood pressure of 160/80. Pt's home meds include lisinopril 40mg daily ? Resumed home lisinopril 40 mg daily ? During hospitalization pt is started on [id number] mg daily #Anemia of chronic disease #In the setting of CKD Patient had decreased H&H of 10.3/31.6 with MCV of 90. Iron panel abnormal with iron at 12, UIBC 134, iron saturation 8%, ferritin 726. Plan ? No iron tablets, given concern for sepsis ? Will monitor with daily CBC ? Will transfuse if hemoglobin drops below 7 per protocol #Insulin dependent Type 2 diabetes mellitus #Diabetic neuropathy Patient has reported history of type 2 diabetes mellitus and diabetic neuropathy Home meds include glargine 20 units daily, Glipizide 5mg BID, and Januvia 50mg daily . A1c on 09/05 is 8.3 Plan ? Continue insulin glargine to 35 units at night ? Continue insulin lispro to 7 units with meals ? Continue to monitor fasting blood glucose ? Nephrology resumed patient's home Januvia and Ozempic ? Continue to hold home glipizide during hospitalization, pt will follow up outpatient with primary care before resuming #History of peripheral artery disease #Hyperlipidemia #History of thrombus in RLE Patient was reported to have a history of hyperlipidemia on home atorvastatin 20 mg. Patient's family reports that the patient received surgical care at [facility] in [place], [place] as they have specialists to manage peripheral artery disease in patients who require amputations in the lower extremities. 1+ pedal pulse noted in bilateral lower extremities. Likely a contributor to poor wound healing post transmetatarsal amputation, which likely contributed to infection that led to osteomyelitis. ? US LE veins 09/02 negative for DVT ? US LE arteries positive for right popliteal monophasic flow and left posterior tibial artery monophasic flow, but left and right ENRRIQUE greater than 0.9 Plan: -resume home atorvastatin -Per cardiology recommendation will discontinue pt's home plavix and will continue aspirin 81mg daily #Hypophosphatemia (resolved) Patient had phosphorus of 2.1 on 08/25 9 AM labs. ? Ordered potassium phosphate packet [Neutra-Phos] one-time dose 09/03 ? Will monitor with a.m. phosphorus levels #Thrombocytosis (resolved) Patient has elevated platelet count at 509 on 09/02 likely reactive secondary to acute infection. ? Will monitor with daily CBC #Constipation (resolved) Patient has bowel movements every few days per family members. Patient responds well to home bisacodyl 5mg PRN. ? Continue bisacodyl 10 mg daily ? Ordered docusate 100 mg, senna/docusate tablet, warm water enema, and glycerin suppository one-time doses to encourage bowel movement on 09/06 #Hypomagnesemia (resolved) Patient had magnesium of 1.4 on 09/04. ? Ordered magnesium repletion with 2 gm magnesium sulfate IV once 09/04 and start 400 mg magnesium oxide daily. Stopped on 09/08. DVT Prophylaxis: Heparin GI Prophylaxis: N/A Diet: Carbohydrate consistent low [place]: Yes Lines: Peripheral IV Antibiotics: Cephalexin Code Status: FULL Reason for Hospitalization: Sepsis due to osteomyelitis and UTI Other Barriers to Discharge: Right BKA dressing changed on 09/11 & SNF placement Patient plan of care was discussed with the senior resident Dr. Farr (PGY-2) and attending physician Dr. Mcgraw. Mando Lima, PGY1 Attending Provider Attestation/Addendum Yasmani, Jaki Mcgraw, , attest that I was physically present for the friend portions of the service and evaluated the patient with the resident and I reviewed and discussed the case with the resident and agree with the resident's findings and plans of care as documented above Patient seen and evaluated this AM. Patient states that he is feeling well. Patient denies any active pain, fevers, chills, chest pain, nausea or vomiting. Stump protectors over the right lower extremity. No acute events overnight. Patient is stable for discharge to SNF once it is arranged.
--- NOTE | 2024-09-12 09:15 | PC.SS ---
SS spoke to Domi from [facility] who explained insurance authorization is pending. SS received call from Renea [phone] who is aware.
--- NOTE | 2024-09-12 09:24 | PD.RESDS ---
Planned Discharge Date 09/13/24 DS: Providers Provider Date of admission: 09/01/24 22:59 Primary care physician: Yonny Herrera MD Admitting Provider: Joel Delaney MD Attending Provider on Admission: Joel Delaney MD Consults: 09/02/24 08:00 Referral Physical Therapy Routine Comment: Physician Instructions: Referral Wound Care Routine Comment: 09/02/24 09:17 Referral OP Wound Healing Dept Routine Comment: 09/02/24 09:51 Consult to Infectious Diseases Urgent Comment: Consulting Provider: David Blankenship 09/02/24 11:09 Consult to General Surgery Routine Comment: Consulting Provider: Hollie Miller 09/02/24 13:48 Referral Nutritional Services Routine Comment: Wounds 09/03/24 09:00 Consult Diabetic Routine Comment: 09/03/24 13:36 Consult to Cardiology Routine Comment: Cardiac clearance for osteomyelitis derbridement Consulting Provider: Murali Davison 09/06/24 10:55 Consult to Nephrology Routine Comment: JULIO Consulting Provider: Yonny Herrera Attending Provider on DC: Jaki Mcgraw DO Discharging Provider: RESIDENT Viviane Anticipated date of discharge: 09/13/24 DS: Diagnosis Problem List Completed Was Problem List Reviewed/Reconciled?: Yes Hospital Course Hospital Course Hospital course: Reason for hospitalization:?Right foot transmetatarsal amputation site osteomyelitis and UTI Summary: This patient is a 74-year-old male with a history of PAD, CAD status post PCI, HTN, T2DM, BPH, HLD, s/p right foot TMA was brought to [facility] ED by EMS on 09/01/2024 for reported generalized fatigue and malaise. The patient's daughter reported that the patient had increasing weakness and unresponsiveness, along with increasing redness on the patient's foot. In the ED, the patient had elevated temperature, marked leukocytosis, elevated ESR, elevated creatinine, and UA positive for bacteria, WBC, and urine nitrites. Imaging suggested osteomyelitis of right foot TMA. The patient was admitted to [facility] for right foot TMA osteomyelitis and UTI. Patient was started on IV Rocephin and vancomycin on 09/01. General surgery was consulted, Dr. Garcia was initially notified due to prior care, but patient's family requested a different surgeon. Changed general surgery consultation to Dr. Miller on 09/02. Infectious disease was consulted. Rapid response was called at 1130 on 09/02 due to significant shivering, which was soon upgraded to sepsis alert due to abnormal vitals. On conclusion of rapid response, the patient had improvement in shivering and was upgraded to telemetry floor for closer monitoring in atrial fibrillation on EKG. Ceftriaxone started on 09/01 was swapped to piperacillin/tazobactam on 09/02, vancomycin started on 09/01 unchanged. On 09/03, cardiology was consulted for surgery clearance, and provided clearance for surgery on the same day. General surgery notified the patient on 09/03 and they will plan for I&D of the right foot, explained that there was still significant chance that the patient will need BKA. General surgery performed I&D of right TMA stump and right heel eschar on 09/04. Overnight from 09/04 to 09/05, the patient had critical elevation of blood glucose, prompting tighter glucose control. Urine culture on 09/05, urine culture resulted as E. coli and right TMA wound culture resulted as micrococcus and related genera. On 09/06, ID recommended changing antibiotic regimen to doxycycline, metronidazole, and ceftriaxone, which was appreciated and acted upon by primary medicine team. Nephrology was consulted on 09/06 for JULIO on CKD and management of diabetes as the on-call drapery worker, Dr. Herrera, is the patient's PCP, to whom the patient's family wanted on board for the patient's care. Nephrology restarted the patient's home Januvia, glipizide, and Ozempic, and also discussed with the patient and his family about how the patient might benefit from right BKA. Patient had an episode of hypoglycemia overnight 09/06 to 09/07, prompting medicine team to readjust insulin regimen. Nephrology held patient's home glipizide on 09/07 due to episode of hypoglycemia. On 09/08, insulin regimen was decreased due to overnight hypoglycemia. On 09/09, patient had right BKA performed by general surgery. ID placed patient on Cephalexin due to BKA. On 09/13, patient was alert and oriented to person, place, and situation. Last bowel movement 09/11 per patient and his family members. Vitals and labs were stable, patient medically cleared for discharge to SNF. Imaging: ? Foot x-ray 09/01/2024: Osteomyelitis involving amputated metatarsals, poorly visualized on this limited study ? Foot MRI 09/02/2024: Negative for calcaneal osteomyelitis. There is cortical irregularity involving all of the amputated stumps of thetarsals suspicious for early osteomyelitis, patient be clinically correlated ? Arterial/peripheral duplex 09/03/2024: Bilateral peripheral obstructive arterial disease, consider correlating with CTA abdominal aorta iliofemoral runoff post intravenous contrast ? Echocardiogram ultrasound 09/03/2024: Normal LV size and function, estimated EF at 55%. There is grade 1 diastolic dysfunction. The RV is normal in size and systolic function. Mild MAC. Trace MR and TR. Aortic valve sclerosis. Discharge Recommendations: - Follow up with PCP within 1 week of discharge - Continue rest of medications as previously prescribed - Return to the ED or call EMS if symptoms return and/or worsen - Stop Plavix, only take aspirin 81 mg per recommendations by cardiology - Follow-up with Dr. Miller next week in outpatient clinic. The office will schedule appointment. If you need to reschedule please call [phone] - Right BKA Johnathan to be removed 3 weeks after surgery - Follow wound care instructions noted below If you don't have a PCP, you can make an appointment at the [facility]: [address] [facility] [address] [place] [address] Hospital Diagnoses: #Right foot osteomyelitis at right transmetatarsal amputation site (resolved) #Right below knee amputation #Right plantar edema (resolved) #Eschar of right heel (resolved) #Leukocytosis (resolving) #Urinary tract infection (E. coli; resolving) #JULIO on CKD, likely secondary to sepsis versus dehydration (resolved) #Metabolic acidosis, anion gap, secondary to lactic acidosis (resolved) #Anemia of chronic disease #Hyperglycemia #Insulin dependent Type 2 diabetes mellitus, uncontrolled #Diabetic neuropathy #Dyslipidemia #Peripheral artery disease #History of right thrombus in RLE #Thrombocytosis #Constipation #I&D, excisional debridement of right foot #CAD status post PCI #Primary hypertension #Hypophosphatemia (resolved) #Hypomagnesemia (resolved) Mando Lima, PGY-1 Status at Discharge Overall status at discharge: patient is back to baseline Time Spent with Patient Time attestation: Total time spent providing and/or coordinating discharge services: Time spent: Greater than 30 minutes Home Health Home Health Referral Orders: 09/10/24 14:42 Home Health Referral Routine Reason For Exam: BKA Home-Bound The patient must either because of illness or injury, need the aid of supportive devices such as crutches, canes, wheelchairs, and walkers; the use of special transportation; or the assistance of another person in order to leave their place of residence; OR have a condition such that leaving his or her home is medically contraindicated. In addition, the patient also meets the following criteria: patient is normally unable to leave the home and leaving home requires considerable taxing effort. Addendum to Home Health Certification Practitioner's Certification: I certify that the patient has been under my care in the hospital and the care of attending physician (see below). We had a [id number] encounter on (see date below). My clinical findings indicate that the patient is home bound per the above criteria and the Home Health Services noted in these orders are medically necessary. The primary reason for the [id number] encounter is related to the fact that the patient requires home health services. Date Certifying [id number] Physician Encounter: 09/01/24 Physician's Name who will Assume Oversight for Services: Yonny Herrera Physician's Phone No.who will Assume Oversight for Service: MARKETING GRAPHICS SPECIALIST - Community Resources: No PT to Evaluate: Yes PT to evaluate and provide a treatmnet plan to increase patient's mobility and strength. Wound Care: Yes Home Health RN - Wound Care Order: Right BKA IV Therapy: No RN Safety Evaluation: Yes RN to evaluate and create a plan of care that will produce positive outcomes. Palliative Treatment: No Palliative treatment and evaluate the need for hospice. Home Health Aide - Personal Care: No Home Health Aide to assist with any ADL's. Exam Vital Signs Temp Pulse Resp BP Pulse Ox O2 Del Method O2 Flow Rate 97.0 F 71 20 121/69 97 Nasal Cannula 0.5 09/12/24 04:00 09/12/24 06:47 09/12/24 06:47 09/12/24 04:00 09/12/24 06:47 09/12/24 04:00 09/12/24 06:47 Narrative Exam General: Alert, no acute distress. Skin: Warm, dry, intact, no obvious rash. Head: Normocephalic, atraumatic. Eye: Normal conjunctiva, PERRL. Cardiovascular: Regular rate and rhythm, no murmur, +S1/S2. Respiratory: Lungs are clear to auscultation, respirations unlabored, no crackles, no wheezing. Gastrointestinal: Soft, nontender, non-distended. No guarding or rebound tenderness. Extremities: No edema, no cyanosis, no clubbing. 2+ radial pulse bilaterally, Right BKA. Neuro: No focal deficits observed. Conversant, moving all extremities. No overt cerebellar signs/incoordination. Psychiatric: Cooperative, appropriate affect. Discharge Plan Plan Patient condition on transfer: Stable Care Plan Goals: 1) Follow up with Dr. Miller next week. The office will call to schedule appointment. If you need to reschedule please call [phone] 2) Right BK Amputation johnathan to be removed 3 weeks after surgery (approx 09/[address] Miller) Wound care: - Right BKA: lightly cleanse with wound cleanser, pat dry. Cover incision line with telfa and secure with kerlix roll. Apply job printer sock and stump protector daily Elevate 2 pillows above heart level while in bed - Blanchable redness to left heel: allyven dressing with negative heel pressure at all times Negative heel pressure at all times -Blanchable redness with epidermal stripping over gluteal cleft: allyven dressing. Change PRN for falling off. Side to side repositioning Q2 hrs except for meals Prescriptions/Referrals Prescriptions/Med Rec: No Action clopidogrel [Plavix] 75 mg Tablet 75 mg PO QDAY aspirin [Bert Low Dose Aspirin] 81 mg Tablet,Delayed Release (Dr/Ec) 81 mg PO QDAY metoprolol tartrate 25 mg Tablet 50 mg PO BID oxybutynin chloride 10 mg tablet extended release 24hr 10 mg PO HS Patient Comments: TAKE 1 TABLET BY MOUTH AT BEDTIME sertraline 50 mg tablet 50 mg PO DAILY Patient Comments: TAKE 1 TABLET BY MOUTH ONCE DAILY Ozempic 1 mg/dose (4 mg/3 mL) pen injector 1 mg subcut QWEEK clopidogrel 75 mg tablet 75 mg PO QDAY Qty: 30 0RF insulin glargine [Lantus U-100 Insulin] 100 unit/mL Solution 20 unit SCi BID Qty: 2 0RF insulin lispro 100 unit/mL Solution 0 sliding scale dose SCi AC Qty: 2 0RF metoprolol tartrate 25 mg Tablet 50 mg PO BID Qty: 60 0RF Januvia 50 mg Tablet 50 mg PO QDAY Qty: 30 0RF (DME) FreeStyle Singh 14 Day Sensor Kit See Rx Instructions .Route Qty: 1 0RF Rx Instructions: As directed (DME) insulin syringe-needle U-100 [Insulin Syringe] 0.5 mL 29 gauge x 1/2 syringe See Rx Instructions .Route Qty: 10 0RF Rx Instructions: As directed atorvastatin [Lipitor] 10 mg Tablet 20 mg PO HS Qty: 30 0RF glipizide 5 mg Tablet Extended Release 24hr 5 mg PO BID Qty: 60 0RF Renal-Chata 0.8 mg tablet 1 tab PO Q24H Qty: 30 0RF bisacodyl 5 mg tablet,delayed release (DR/EC) 5 mg PO PRN Qty: 30 0RF lisinopril 40 mg Tablet 40 mg PO QDAY Qty: 30 0RF finasteride 5 mg Tablet 5 mg PO QDAY Qty: 30 0RF Referrals: Yonny Herrera MD [Primary Care Provider] - Patient/Caregiver Discharge Instructions Education Materials: Preventing Surgical Site Infections Print Language: Hong Konger Quality Discharge Quality Measures VTE prophylaxis
[2024-09-12] MEDS: FINASTERIDE 5 MG TABLET PO (09:46)
[2024-09-12] MEDS: HEPARIN SOD INJ 5000 UNIT/ML VIAL SC ×2 (09:51→22:08)
[2024-09-12] MEDS: SENNA/DOCUSATE SOD 1 TAB TABLET 2 TAB PO (09:51)
[2024-09-12] MEDS: POLYETHYLENE GLYCOL 17 GM PACKET 34 GM PO (09:51)
[2024-09-12] MEDS: CLOPIDOGREL BISULFATE 75 MG TABLET PO (09:52)
[2024-09-12] MEDS: ASPIRIN EC 81 MG TABEC PO (09:52)
--- NOTE | 2024-09-12 10:48 | PC.SS ---
SS received call from Domi from [facility] who states patient's health insurance is requesting updated PT notes. SS has sent PT notes from 09-10-24 yesterday and they were received. SS has called Liset from PT who is aware.
[2024-09-12] MEDS: INSULIN LISPRO (AdmeLOG) 1 UNIT/0.01 ML UNIT SC ×2 (17:12→22:05)
[2024-09-12] MEDS: SERTRALINE HCL 25 MG TABLET 50 MG PO (21:42)
[2024-09-12] MEDS: ATORVASTATIN CALCIUM 20 MG TABLET PO (21:43)
[2024-09-12] MEDS: INSULIN GLARGINE (Lantus) 5 UNIT/0.05 ML (PER 5 UNITS) 35 UNIT SC (22:04)
[2024-09-13] VITALS (9 sets, daily range): BP systolic 115–137; BP diastolic 62–75; PULSE 69–84; RESP 16–20; TEMP 36.1–36.5; O2SAT 95–99; BMI 27.3
--- NOTE | 2024-09-13 08:57 | PC.SS ---
Addendum entered by CONNOR Nice 09/13/24 11:31: INSOLE RASPER spoke to Domi at [facility] who stated that there is still no updates from insurance. Original Note: INSOLE RASPER spoke to Domi at [facility], Domi stated there are no updates from Insurance yet and requested that INSOLE RASPER call back in 30 min.
[2024-09-13] MEDS: HEPARIN SOD INJ 5000 UNIT/ML VIAL SC ×2 (09:57→21:42)
[2024-09-13] MEDS: FINASTERIDE 5 MG TABLET PO (09:59)
[2024-09-13] MEDS: ASPIRIN EC 81 MG TABEC PO (10:00)
--- NOTE | 2024-09-13 10:41 | ESPR_ITS ---
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 Marc is a 74-year-old man with significant past medical history of longstanding hypertension, uncontrolled diabetes mellitus x years, dyslipidemia, diabetic neuropathy//CKD III- under my care, diabetic retinopathy, diabetic foot wound since early 2024- ( rt toe amputation, subsequently right metatarsal amputation-under wound care center with hyperbaric oxygen) no improvement presented to the emergency department with worsening of the wound on the right foot brought by the daughter. Denies fever, shortness of breath, nausea, vomiting, palpitations, or diarrhea. In the hospital patient was seen by Dr. Miller who did I&D with the purulent drainage. Blood sugars have been significantly elevated between 200-500 despite giving insulin and high doses. Patient on a consistent carb low diet. Medications and labs have been reviewed. Renal consultation requested for JULIO on CKD in the setting of poorly controlled diabetes. Past medical history: Hypertension, diabetes mellitus, dyslipidemia, diabetic neuropathy, diabetic retinopathy Past surgical history: CABG Social history: Denies smoking, alcohol, other illicit drug abuse 09/06/2024 WBC 31, hemoglobin 10.6, platelets 682. Sodium 136, potassium 4.2, BUN 36, creatinine 1.4, blood sugar 341, calcium 9.3, phosphorus 2.4, magnesium 2.1, LFTs normal, albumin 3.1, urinalysis shows significant proteinuria and glucosuria. Echocardiogram showed ejection fraction 55% peripheral arterial Doppler showed severe peripheral vascular disease. Venous Doppler showed no DVT in both legs foot MRI showed questionable early osteomyelitis. 09/08/2024 patient currently seen in medical floor. Sugar seems to be much better today. Insulin dose adjusted by primary team creatinine stable at 1.3. Had a long conversation with patient and family regarding right BKA for his right foot metatarsal stump infection. He seems to be in agreement. Conveyed the same to Dr. Miller and primary team. Blood pressure 119/67, blood sugar this morning was very low. WBC 20.8, hemoglobin 8.6, platelets 492. Albumin 2.6 09/09/2024: patient seen and examined at bedside, blood glucose 223 in the AM, insulin dose adjusted per primary team, Cr 1.4. , BUN 53 from 44. UOP 1400. plan for BKA or RLE today, NPO pending surgery with Dr. Miller 09/10/2024: Patient seen and examined at bedside, blood glucose 330 in the AM, patient received 30 units glargine at bedtime yesterday. primary team will restart DM medications. patient is s/p Right BKA with Dr. Miller. patient reports no fevers, chills, pain. pending discharge likely tomorrow per Dr. Miller, dressing change tomorrow. ID consulted, per Dr. Blankenship, ok for all po regimen of keflex 1000 tid for 3 days after amputation 09/11/2024: Patient seen and examined at bedside, sitting upright, after finishing breakfast, blood glucose in the AM was 192. pt reports no fevers, chills, pain. Pt is s/p bka with dr. Miller on 09/09, no systemic signs of infxn, leukocytosis downtrending. continues on keflex per Dr. Blankenship recandrés, likely discharge tomorrow to snf 09/12/2024: Patient seen and examined at bedside. sitting upright after finishing breakfast. Blood glucose in the am was 86, asymptomatic (getting 7 units short acting scheduled) Pt is s/p BKA with Dr. Miller on 09/09. no systemic signs of infection, Continues on keflex, per Dr. Pattie griffiths, dispo to SNF . pt has not had a BM in 2 days. reccomend d/c flash. will follow up with Dr. Miller on 09/30 for removal of johnathan. 09/13/2024 Patient seen and examined at bedside, Finger AM BG is 81, asymptomatic, alert and oriented. s/p BKA on 09/09, no systemic signs of infection, continues on Keflex per ID recs, pending dispo to SNF (continue to await placement and insurance auth). 2x BM today. will f/u with Dr. Miller for removal of johnathan on 09/30. Exam Vital Signs Temp Pulse Resp BP Pulse Ox O2 Del Method O2 Flow Rate 97.1 F 76 16 115/67 96 Room Air 0.5 09/13/24 08:00 09/13/24 09:59 09/13/24 08:00 09/13/24 09:59 09/13/24 08:00 09/13/24 08:00 09/12/24 12:00 Narrative Exam General: Alert, no acute distress. responsive to questions in greek and some yi. expresses desire to go to rehab and leave hospital. Skin: Warm, dry, intact, no obvious rash.Gluteal cleft bed sore (followed by wound care) , L heel wound, Head: Normocephalic, atraumatic. Eye: Normal conjunctiva, Cardiovascular: Regular rate and rhythm, no murmur, Respiratory: Lungs are clear to auscultation, respirations unlabored, no crackles, no wheezing. Gastrointestinal: Soft, nontender, non-distended. No guarding or rebound tenderness. Extremities: No edema, no cyanosis, no clubbing. 2+ radial pulse bilaterally. s/p R BKA, dressed (johnathan and suture) Neuro: No focal deficits observed. Conversant, moving all extremities. No overt cerebellar signs/incoordination. Psychiatric: Cooperative, appropriate affect. Objective Labs 09/11/24 05:11 09/11/24 05:11 Quality Measures Quality Measures sepsis Current suspected stage: ruled out Possible source: bone/joint, genitourinary and skin/soft tissue Blood cultures ordered: yes Antibiotic ordered: Yes Advance care planning discussed with:: patient and child Assessment & Plan Assessment Current Active Medications: Generic Name Dose Route Start Last Admin Trade Name Freq PRN Reason Stop Dose Admin Acetaminophen 650 mg 09/01/24 22:20 09/06/24 05:50 Acetaminophen 325 Mg Tablet PO 10/01/24 22:19 650 mg Q6H PRN Administration PAIN SCALE 1-3 (mild Amlodipine Besylate 10 mg 09/07/24 09:00 09/13/24 09:59 Amlodipine Besylate 5 Mg Tablet PO 10/07/24 08:59 10 mg QDAY ALEXIS Administration Aspirin 81 mg 09/02/24 09:00 09/13/24 10:00 Aspirin Ec 81 Mg Tabec PO 10/02/24 08:59 81 mg QDAY ALEXIS Administration Atorvastatin Calcium 20 mg 09/12/24 21:00 09/12/24 21:43 Atorvastatin Calcium 20 Mg Tablet PO 10/12/24 20:59 20 mg HS ALEXIS Administration Bisacodyl 5 mg 09/06/24 09:00 09/13/24 09:57 Bisacodyl 5 Mg Tabec PO 10/06/24 08:59 5 mg QDAY ALEXIS Administration Protocol Dextrose 25 ml 09/03/24 11:13 09/06/24 20:55 Dextrose 50%-Water Inj 50 Ml Syringe IV 10/03/24 11:12 25 ml Q15MIN PRN Administration BG 50-70 responsive npo pt Dextrose 50 ml 09/03/24 11:13 Dextrose 50%-Water Inj 50 Ml Syringe IV 10/03/24 11:12 Q15MIN PRN BG <50 OR BG <70 & pt unresponsive Finasteride 5 mg 09/02/24 09:00 09/13/24 09:59 Finasteride 5 Mg Tablet PO 10/02/24 08:59 5 mg QDAY ALEXIS Administration Glucagon 1 mg 09/03/24 11:13 Glucagon Inj 1 Mg Vial IM Q15MIN PRN BG <70, and no IV access Heparin Sodium (Porcine) 5,000 unit 09/02/24 09:00 09/13/24 09:57 Heparin Sod Inj 5000 Unit/Ml Vial SC 09/16/24 08:59 5,000 unit Q12HR ALEXIS Administration Insulin Glargine 35 unit 09/10/24 21:00 09/12/24 22:04 Insulin Glargine (Lantus) 5 Unit/0.05 Ml (Per 5 Units) SC 10/10/24 20:59 35 unit HS ALEXIS Administration Insulin Human Lispro 0 unit 09/09/24 21:00 09/13/24 07:26 Insulin Lispro (Admelog) 1 Unit/0.01 Ml Unit SC 10/09/24 20:59 Not Given ACHS [facility] Protocol Insulin Human Lispro 7 unit 09/10/24 11:30 09/13/24 08:04 Insulin Lispro (Admelog) 1 Unit/0.01 Ml Unit SC 10/10/24 11:29 Not Given AC [facility] Lisinopril 40 mg 09/05/24 09:00 09/13/24 09:59 Lisinopril 20 Mg Tablet PO 10/05/24 08:59 40 mg QDAY ALEXIS Administration Metoclopramide HCl 10 mg 09/06/24 00:50 09/06/24 02:30 Metoclopramide Inj 5 Mg/Ml Vial 2 Ml IVP 10/06/24 00:49 10 mg Q8HR PRN Administration NAUSEA OR VOMITING Protocol Morphine Sulfate 1 mg 09/09/24 20:24 09/11/24 00:00 Morphine Sulf Inj 10 Mg/Ml Vial IVP 09/14/24 20:23 1 mg Q3HR PRN Administration PAIN SCALE 7-10 (Severe Ondansetron HCl 4 mg 09/06/24 11:00 Ondansetron Inj 2 Mg/Ml Inj 2 Ml IVP 10/06/24 10:59 Q6HR PRN NAUSEA OR VOMITING Protocol Oxycodone/Acetaminophen 1 tab 09/09/24 20:24 09/10/24 19:46 Oxycodone/Apap 5/325 Tablet PO 09/14/24 20:23 1 tab Q6HR PRN Administration PAIN SCALE 7-10 (Severe Sennosides 1 tab 09/01/24 22:20 09/05/24 05:23 Senna Tablet PO 10/01/24 22:19 1 tab QDAY PRN Administration constipation Protocol Sertraline HCl 50 mg 09/02/24 21:00 09/12/24 21:42 Sertraline Hcl 25 Mg Tablet PO 10/02/24 20:59 50 mg HS ALEXIS Administration Sitagliptin Phosphate 100 mg 09/08/24 09:00 09/13/24 09:59 Sitagliptin Phosphate 50 Mg Tablet PO 10/08/24 08:59 100 mg QDAY ALEXIS Administration Plan Mr. Marc 74-year-old man with significant past medical history of longstanding hypertension, uncontrolled diabetes mellitus, dyslipidemia, diabetic neuropathy, diabetic retinopathy, diabetic foot presented to the hospital with a chief complaints of worsening of his wound on right foot stump, s/p R BKA with Dr. 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 -s/p R BKA, dressing in place, pain well controlled. pending discharge to snf. PLAN: - s/p BKA with Dr. Miller 09/09,dispo to snf (pending insurance auth) - wound care consulted, appreciate recs. -f/u with Dr. Miller 09/30 for removal of johnathan. # Uncontrolled diabetes mellitus- improved A1c on 04/06/2024 is 13.1 A1c: 08/2024-A1c 8.6. sugars previously noted at 500 during this admission 8/ AM gluc 223 8/5 AM gluc 330 8/6 AM gluc 192 8/7 AM gluc 86- asymptomatic 09/13 AM gluc 81- asymptomatic -Patient is currently on insulin, managed per primary team Glargine increased from 30 to 35 units QHS Lispro 7 units with meals (HOLDING per primary team) -continue Januvia (sitagliptan 100mg qd) -Hypoglycemia protocol in place # JULIO on CKDIII- resolved Creatinine markedly improved. Underlying CKD from diabetic nephropathy. 09/10 Cr. 1.2 09/11 Cr 1.1 Urine Cr: 59 Urine Protein: 36 Gave iron, Procrit for anemia of chronic kidney disease # History of hypertension -Blood pressure at the time of admission is 136/74 mmHg -Patient is using metoprolol and lisinopril at home Plan -Currently on amlodipine, lisinopril # History of CAD s/p CABG -Patient is using aspirin and atorvastatin at home. #Dyslipidemia -Lipid profile is within normal limits on 04/06/2024 cont atorvastatin 20 mg qhs #Constipation pt reports usually going to the bathroom q3 days, 2 days post BKA without BM, 2x bm today 09/13 -Managed as per primary team Plan of care discussed with primary team Plan discussed with nephrology attending Dr. Sharon Villegas MD Internal Medicine PGY-1 Attending Provider Attestation/Addendum Patient seen and examined with resident physician Dr. Villegas. Note reviewed, agree with findings and recommendations. Patient comfortable. s/p right BKA today with Dr. Miller Blood sugars are high and blood pressure seems to be stable. Creatinine stable. Spoke to team-continue with Januvia Patient agreed to go to rehab temporarily.
[2024-09-13] MEDS: INSULIN LISPRO (AdmeLOG) 1 UNIT/0.01 ML UNIT 7 UNIT SC ×2 (12:09→17:37)
[2024-09-13] MEDS: INSULIN LISPRO (AdmeLOG) 1 UNIT/0.01 ML UNIT SC ×2 (12:10→17:38)
--- NOTE | 2024-09-13 14:02 | PC.SS ---
Domi at [facility] informed [employer] that insurance is requesting more clinicals.
--- NOTE | 2024-09-13 14:23 | ESPR_ITS ---
<Statement entered by James Galindo MD - 09/18/24 14:36> I reviewed above note and agree with findings and plans. I have also personally examined the patient with medicine team and went over assessment and plan with medical team including recording studio internship and resident physician. <Statement entered by Aida Farr MD - 09/13/24 16:18> Pt is seen at bedside, pain s/p BKA is well controlled, Pt is also working routinely with PT. Pt completed course of antibiotics. Currently pending SNF authorization. Patient was seen and examined by me personally. I have directly supervised and reviewed documentation by the team resident and agree with its findings. Plan of care was discussed with the attending, Dr. Josie Farr, PGY-2 Documentation for date of: 09/13/24 Subjective Subjective Interval history: A 74-year-old man with past medical history of PAD, hypertension, type 2 diabetes, status post amputation of right metatarsal who presented to the ED with concerns of generalized weakness and altered mental status. Patient was admitted for sepsis management osteomyelitis of right foot and UTI. Overnight patient had no acute events. Vitals were stable. The patient was seen and examined at bedside. Has no active complaint. Denies any fever, chills, shortness of breath abdominal pain, UTI symptoms and leg pain. Saturating well on room air labs reviewed and was stable. Lantus was changed from 35 to 30 units due to lower glucose level of 81. From medical standpoint patient is stable currently awaiting SNF placement. Exam Vital Signs Temp Pulse Resp BP Pulse Ox O2 Del Method O2 Flow Rate 97.0 F 84 17 117/72 99 Room Air 0 09/13/24 12:09/13/24 12:09/13/24 12:09/13/24 12:09/13/24 12:09/13/24 12:09/13/24 12:00 Narrative Exam Physical Exam: General: Alert, no acute distress. Skin: Warm, dry, intact, no obvious rash. HEENT: Normocephalic, atraumatic.Normal conjunctiva, PERRL,no scleral icterus Cardiovascular: Regular rate and rhythm, no murmur, +S1/S2. Respiratory: Lungs are clear to auscultation, respirations unlabored, no crackles, no wheezing. Gastrointestinal: Soft, nontender, non-distended. No guarding or rebound tenderness. Extremities: Right BKA. No edema, no cyanosis, no clubbing. 2+ radial pulse bilaterally, 2+ pedal pulse bilaterally. Neuro: No focal deficits observed. Conversant, moving all extremities. No overt cerebellar signs/incoordination. Psychiatric: Cooperative, appropriate affect. Objective Labs 09/11/24 05:11 09/11/24 05:11 Quality Measures Quality Measures sepsis Current suspected stage: ruled out Possible source: bone/joint, genitourinary and skin/soft tissue Blood cultures ordered: yes Antibiotic ordered: No Advance care planning discussed with:: patient Assessment & Plan Assessment Current Active Medications: Generic Name Dose Route Start Last Admin Trade Name Freq PRN Reason Stop Dose Admin Acetaminophen 650 mg 09/01/24 22:20 09/06/24 05:50 Acetaminophen 325 Mg Tablet PO 10/01/24 22:19 650 mg Q6H PRN Administration PAIN SCALE 1-3 (mild Amlodipine Besylate 10 mg 09/07/24 09:00 09/13/24 09:59 Amlodipine Besylate 5 Mg Tablet PO 10/07/24 08:59 10 mg QDAY ALEXIS Administration Aspirin 81 mg 09/02/24 09:00 09/13/24 10:00 Aspirin Ec 81 Mg Tabec PO 10/02/24 08:59 81 mg QDAY ALEXIS Administration Atorvastatin Calcium 20 mg 09/12/24 21:00 09/12/24 21:43 Atorvastatin Calcium 20 Mg Tablet PO 10/12/24 20:59 20 mg HS ALEXIS Administration Bisacodyl 5 mg 09/06/24 09:00 09/13/24 09:57 Bisacodyl 5 Mg Tabec PO 10/06/24 08:59 5 mg QDAY ALEXIS Administration Protocol Dextrose 25 ml 09/03/24 11:13 09/06/24 20:55 Dextrose 50%-Water Inj 50 Ml Syringe IV 10/03/24 11:12 25 ml Q15MIN PRN Administration BG 50-70 responsive npo pt Dextrose 50 ml 09/03/24 11:13 Dextrose 50%-Water Inj 50 Ml Syringe IV 10/03/24 11:12 Q15MIN PRN BG <50 OR BG <70 & pt unresponsive Finasteride 5 mg 09/02/24 09:00 09/13/24 09:59 Finasteride 5 Mg Tablet PO 10/02/24 08:59 5 mg QDAY ALEXIS Administration Glucagon 1 mg 09/03/24 11:13 Glucagon Inj 1 Mg Vial IM Q15MIN PRN BG <70, and no IV access Heparin Sodium (Porcine) 5,000 unit 09/02/24 09:00 09/13/24 09:57 Heparin Sod Inj 5000 Unit/Ml Vial SC 09/16/24 08:59 5,000 unit Q12HR ALEXIS Administration Insulin Glargine 35 unit 09/10/24 21:00 09/12/24 22:04 Insulin Glargine (Lantus) 5 Unit/0.05 Ml (Per 5 Units) SC 10/10/24 20:59 35 unit HS ALEXIS Administration Insulin Human Lispro 0 unit 09/09/24 21:00 09/13/24 12:10 Insulin Lispro (Admelog) 1 Unit/0.01 Ml Unit SC 10/09/24 20:59 3 unit ACHS ALEXIS Administration Protocol Insulin Human Lispro 7 unit 09/10/24 11:30 09/13/24 12:09 Insulin Lispro (Admelog) 1 Unit/0.01 Ml Unit SC 10/10/24 11:29 7 unit AC ALEXIS Administration Lisinopril 40 mg 09/05/24 09:00 09/13/24 09:59 Lisinopril 20 Mg Tablet PO 10/05/24 08:59 40 mg QDAY ALEXIS Administration Metoclopramide HCl 10 mg 09/06/24 00:50 09/06/24 02:30 Metoclopramide Inj 5 Mg/Ml Vial 2 Ml IVP 10/06/24 00:49 10 mg Q8HR PRN Administration NAUSEA OR VOMITING Protocol Morphine Sulfate 1 mg 09/09/24 20:24 09/11/24 00:00 Morphine Sulf Inj 10 Mg/Ml Vial IVP 09/14/24 20:23 1 mg Q3HR PRN Administration PAIN SCALE 7-10 (Severe Ondansetron HCl 4 mg 09/06/24 11:00 Ondansetron Inj 2 Mg/Ml Inj 2 Ml IVP 10/06/24 10:59 Q6HR PRN NAUSEA OR VOMITING Protocol Oxycodone/Acetaminophen 1 tab 09/09/24 20:24 09/10/24 19:46 Oxycodone/Apap 5/325 Tablet PO 09/14/24 20:23 1 tab Q6HR PRN Administration PAIN SCALE 7-10 (Severe Sennosides 1 tab 09/01/24 22:20 09/05/24 05:23 Senna Tablet PO 10/01/24 22:19 1 tab QDAY PRN Administration constipation Protocol Sertraline HCl 50 mg 09/02/24 21:00 09/12/24 21:42 Sertraline Hcl 25 Mg Tablet PO 10/02/24 20:59 50 mg HS ALEXIS Administration Sitagliptin Phosphate 100 mg 09/08/24 09:00 09/13/24 09:59 Sitagliptin Phosphate 50 Mg Tablet PO 10/08/24 08:59 100 mg QDAY ALEXIS Administration Plan A 74 year old male with a past history of PAD, HTN, T2DM, HLD, and s/p amputation of right metatarsals who presented to the ED with concerns of generalized weakness and altered mental status. The patient was admitted for sepsis management due to osteomyelitis of right foot and UTI. #S/p Right BKA, POD 4 #Right foot osteomyelitis #Sepsis - resolved On admission Pt had fever of 103.8, tachycardia, and WBC 23.2 with source of infection (right foot) and evidence of endorgan damage of JULIO. qSofa 1 w/ end organ damage JULIO on CKD and lactic acid 5.3. Foot x-ray showed cortical bone destruction of distal metatarsals in right foot, further suggesting osteomyelitis at right transmetatarsal amuptation site. Active pus in right foot, black eschar of right heel, and erythematous right foot support signs of active infection in patient. -Pt underwent right transmetatarsal amputation with Dr. Oliveira in 04/30, which was poorly healing due to Pt's Hx of severe PAD. ? Pt underwent I&D on 09/04 and right BKA on 09/[address] Miller -ESR adn CRP post I &D are within normal limits Plan: ? Blood cultures x 2 drawn 09/01; no growth after 5 days ? Wound culture grew Micrococcus and related genera ? Pt completed course of appropriate antibiotics ? Antibiotic(s): ? Metronidazole 500 mg TID [09/06-09/09] ? Doxycycline 100 mg BID [09/06-09/09] ? Ceftriaxone 2 gm daily [09/02-09/09] ? Vancomycin [09/02-09/06] ? Piperacillin/tazobactam [09/02-09/06] ? Cephalexin 1 gm TID [09/09-09/11] ? Cardiology consulted for surgery clearance, appreciate recommendations ? Infectious disease Consulted, Dr. Blankenship, appreciate recommendations #Urinary tract infection (E. Coli) - resolved Patient had urinalysis performed in ED, which showed WBC 134 with 4+ bacteria, positive urine nitrate, 3+ glucose, and 1+ protein. Due to patient's altered mental status, will monitor and manage with antibiotic treatment. ? Urine culture grew E. coli -Pt ompleted course of antibitoics during hospitalization #JULIO on CKD, likely secondary to sepsis vs dehydration (resolving) #Metabolic Acidosis, anion gap, secondary to Lactic Acidosis (resolved) Patient presented with BUN 35, creatinine 1.4, GFR 53. Possible explanations as to why include decreased blood flow due to sepsis from patient's osteomyelitis and/or urinary tract infection or decreased fluid intake due to altered mental status. Patient has slightly decreased bicarb at 19.6 with an anion gap, likely due to elevated lactic acid at 5.3. ? Will monitor with daily renal panel ? IV hydration with NS due to worsening of renal function 09/05 ? Will renally dose medication and avoid nephrotoxic medication ? Consulted nephrology, appreciate recommendations --Pt is being seen by Dr. Herrera as primary as well as nephrology outpatient #Primary Hypertension Patient has a history of hypertension and initial vitals taken in the ED showed blood pressure of 160/80. Pt's home meds include lisinopril 40mg daily ? Resumed home lisinopril 40 mg daily ? During hospitalization pt is started on [id number] mg daily #Anemia of chronic disease #In the setting of CKD Patient had decreased H&H of 10.3/31.6 with MCV of 90. Iron panel abnormal with iron at 12, UIBC 134, iron saturation 8%, ferritin 726. Plan ? No iron tablets, given concern for sepsis ? Will monitor with daily CBC ? Will transfuse if hemoglobin drops below 7 per protocol #Insulin dependent Type 2 diabetes mellitus #Diabetic neuropathy Patient has reported history of type 2 diabetes mellitus and diabetic neuropathy Home meds include glargine 20 units daily, Glipizide 5mg BID, and Januvia 50mg daily . A1c on 09/05 is 8.3 Plan ? Switch insulin glargine from 35 to 30 units at night ? Continue insulin lispro to 7 units with meals ? Continue to monitor fasting blood glucose ? Nephrology resumed patient's home Januvia and Ozempic ? Continue to hold home glipizide during hospitalization, pt will follow up outpatient with primary care before resuming #History of peripheral artery disease #Hyperlipidemia #History of thrombus in RLE Patient was reported to have a history of hyperlipidemia on home atorvastatin 20 mg. Patient's family reports that the patient received surgical care at [facility] in [place], [place] as they have specialists to manage peripheral artery disease in patients who require amputations in the lower extremities. 1+ pedal pulse noted in bilateral lower extremities. Likely a contributor to poor wound healing post transmetatarsal amputation, which likely contributed to infection that led to osteomyelitis. ? US LE veins 09/02 negative for DVT ? US LE arteries positive for right popliteal monophasic flow and left posterior tibial artery monophasic flow, but left and right ENRRIQUE greater than 0.9 Plan: -resume home atorvastatin -Per cardiology recommendation will discontinue pt's home plavix and will continue aspirin 81mg daily #Hypophosphatemia (resolved) Patient had phosphorus of 2.1 on 08/25 9 AM labs. ? Ordered potassium phosphate packet [Neutra-Phos] one-time dose 09/03 ? Will monitor with a.m. phosphorus levels #Thrombocytosis (resolved) Patient has elevated platelet count at 509 on 09/02 likely reactive secondary to acute infection. ? Will monitor with daily CBC #Constipation (resolved) Patient has bowel movements every few days per family members. Patient responds well to home bisacodyl 5mg PRN. ? Continue bisacodyl 10 mg daily ? Ordered docusate 100 mg, senna/docusate tablet, warm water enema, and glycerin suppository one-time doses to encourage bowel movement on 09/06 #Hypomagnesemia (resolved) Patient had magnesium of 1.4 on 09/04. ? Ordered magnesium repletion with 2 gm magnesium sulfate IV once 09/04 and start 400 mg magnesium oxide daily. Stopped on 09/08. Hospital management: Lines: peripheral IV Diet: CLD Bowel: Senna GI prophylaxis: N/A DVT prophylaxis: Heparin Disposition: Right BKA dressing changed on 09/11 & SNF placement CODE STATUS: Full code Patient seen and assessed under supervision of attending physician Dr. Galindo and discuss with senior resident Dr. Farr PGY-2 Rupa Jacobo MD PGY-1, Internal Medicine
--- NOTE | 2024-09-13 15:03 | PC.SS ---
[employer] sent updated clinicals via fax to the #provided by Domi at [facility] #[phone]. Domi provided authorization #[id number] and stated that they have the authorization # but it wont be active until they receive updated clinicals.
[2024-09-13] MEDS: SERTRALINE HCL 25 MG TABLET 50 MG PO (21:30)
[2024-09-13] MEDS: ATORVASTATIN CALCIUM 20 MG TABLET PO (21:31)
[2024-09-13] MEDS: INSULIN GLARGINE (Lantus) 5 UNIT/0.05 ML (PER 5 UNITS) 30 UNIT SC (22:11)
--- NOTE | 2024-09-13 22:15 | PC.NURSE ---
accessed pt's chart to assist main RN.
[2024-09-14] VITALS (10 sets, daily range): BP systolic 113–137; BP diastolic 60–76; PULSE 56–97; RESP 16–95; TEMP 35.9–36.5; O2SAT 93–98; BMI 27.0
[2024-09-14] MEDS: ASPIRIN EC 81 MG TABEC PO (09:10)
[2024-09-14] MEDS: HEPARIN SOD INJ 5000 UNIT/ML VIAL SC (09:11)
[2024-09-14] MEDS: FINASTERIDE 5 MG TABLET PO (09:11)
--- NOTE | 2024-09-14 10:24 | PD.RESPRO ---
Documentation for date of: 09/14/24 Exam Vital Signs Temp Pulse Resp BP Pulse Ox O2 Del Method O2 Flow Rate 97.2 F 77 17 137/71 H 96 Room Air 0 09/14/24 07:37 09/14/24 09:11 09/14/24 07:37 09/14/24 09:11 09/14/24 07:37 09/14/24 07:37 09/14/24 04:00 Objective Labs 09/11/24 05:11 09/11/24 05:11 Quality Measures Quality Measures sepsis Possible source: bone/joint, genitourinary and skin/soft tissue Blood cultures ordered: yes Assessment & Plan Assessment Current Active Medications: Generic Name Dose Route Start Last Admin Trade Name Freq PRN Reason Stop Dose Admin Acetaminophen 650 mg 09/01/24 22:20 09/06/24 05:50 Acetaminophen 325 Mg Tablet PO 10/01/24 22:19 650 mg Q6H PRN Administration PAIN SCALE 1-3 (mild Amlodipine Besylate 10 mg 09/07/24 09:00 09/14/24 09:10 Amlodipine Besylate 5 Mg Tablet PO 10/07/24 08:59 10 mg QDAY ALEXIS Administration Aspirin 81 mg 09/02/24 09:00 09/14/24 09:10 Aspirin Ec 81 Mg Tabec PO 10/02/24 08:59 81 mg QDAY ALEXIS Administration Atorvastatin Calcium 20 mg 09/12/24 21:00 09/13/24 21:31 Atorvastatin Calcium 20 Mg Tablet PO 10/12/24 20:59 20 mg HS ALEXIS Administration Bisacodyl 5 mg 09/06/24 09:00 09/14/24 09:10 Bisacodyl 5 Mg Tabec PO 10/06/24 08:59 5 mg QDAY ALEXIS Administration Protocol Dextrose 25 ml 09/03/24 11:13 09/06/24 20:55 Dextrose 50%-Water Inj 50 Ml Syringe IV 10/03/24 11:12 25 ml Q15MIN PRN Administration BG 50-70 responsive npo pt Dextrose 50 ml 09/03/24 11:13 Dextrose 50%-Water Inj 50 Ml Syringe IV 10/03/24 11:12 Q15MIN PRN BG <50 OR BG <70 & pt unresponsive Finasteride 5 mg 09/02/24 09:00 09/14/24 09:11 Finasteride 5 Mg Tablet PO 10/02/24 08:59 5 mg QDAY AELXIS Administration Glucagon 1 mg 09/03/24 11:13 Glucagon Inj 1 Mg Vial IM Q15MIN PRN BG <70, and no IV access Heparin Sodium (Porcine) 5,000 unit 09/02/24 09:00 09/14/24 09:11 Heparin Sod Inj 5000 Unit/Ml Vial SC 09/16/24 08:59 5,000 unit Q12HR ALEXIS Administration Insulin Glargine 30 unit 09/13/24 21:00 09/13/24 22:11 Insulin Glargine (Lantus) 5 Unit/0.05 Ml (Per 5 Units) SC 10/13/24 20:59 30 unit HS [facility] Administration Insulin Human Lispro 0 unit 09/09/24 21:00 09/14/24 07:41 Insulin Lispro (Admelog) 1 Unit/0.01 Ml Unit SC 10/09/24 20:59 Not Given ACHS [facility] Protocol Insulin Human Lispro 7 unit 09/10/24 11:30 09/14/24 07:43 Insulin Lispro (Admelog) 1 Unit/0.01 Ml Unit SC 10/10/24 11:29 Not Given [facility] Lisinopril 40 mg 09/05/24 09:00 09/14/24 09:11 Lisinopril 20 Mg Tablet PO 10/05/24 08:59 40 mg QDAY ALEXIS Administration Metoclopramide HCl 10 mg 09/06/24 00:50 09/06/24 02:30 Metoclopramide Inj 5 Mg/Ml Vial 2 Ml IVP 10/06/24 00:49 10 mg Q8HR PRN Administration NAUSEA OR VOMITING Protocol Morphine Sulfate 1 mg 09/09/24 20:24 09/11/24 00:00 Morphine Sulf Inj 10 Mg/Ml Vial IVP 09/14/24 20:23 1 mg Q3HR PRN Administration PAIN SCALE 7-10 (Severe Ondansetron HCl 4 mg 09/06/24 11:00 Ondansetron Inj 2 Mg/Ml Inj 2 Ml IVP 10/06/24 10:59 Q6HR PRN NAUSEA OR VOMITING Protocol Oxycodone/Acetaminophen 1 tab 09/09/24 20:24 09/10/24 19:46 Oxycodone/Apap 5/325 Tablet PO 09/14/24 20:23 1 tab Q6HR PRN Administration PAIN SCALE 7-10 (Severe Sennosides 1 tab 09/01/24 22:20 09/05/24 05:23 Senna Tablet PO 10/01/24 22:19 1 tab QDAY PRN Administration constipation Protocol Sertraline HCl 50 mg 09/02/24 21:00 09/13/24 21:30 Sertraline Hcl 25 Mg Tablet PO 10/02/24 20:59 50 mg HS ALEXIS Administration Sitagliptin Phosphate 100 mg 09/08/24 09:00 09/14/24 09:11 Sitagliptin Phosphate 50 Mg Tablet PO 10/08/24 08:59 100 mg QDAY ALEXIS Administration
[2024-09-14] MEDS: INSULIN LISPRO (AdmeLOG) 1 UNIT/0.01 ML UNIT SC (11:46)
[2024-09-14] MEDS: INSULIN LISPRO (AdmeLOG) 1 UNIT/0.01 ML UNIT 5 UNIT SC (11:47)
--- NOTE | 2024-09-14 12:45 | PD.RESPRO ---
Documentation for date of: 09/14/24 Subjective Subjective Interval history: Patient is [place]-speaking and translated with the help of daughter Renea - deaf interpreter Mr. Marc is a 74-year-old man with significant past medical history of longstanding hypertension, uncontrolled diabetes mellitus x years, dyslipidemia, diabetic neuropathy//CKD III- under my care, diabetic retinopathy, diabetic foot wound since early 2024- ( rt toe amputation, subsequently right metatarsal amputation-under wound care center with hyperbaric oxygen) no improvement presented to the emergency department with worsening of the wound on the right foot brought by the daughter. Denies fever, shortness of breath, nausea, vomiting, palpitations, or diarrhea. In the hospital patient was seen by Dr. Miller who did I&D with the purulent drainage. Blood sugars have been significantly elevated between 200-500 despite giving insulin and high doses. Patient on a consistent carb low diet. Medications and labs have been reviewed. Renal consultation requested for JULIO on CKD in the setting of poorly controlled diabetes. Past medical history: Hypertension, diabetes mellitus, dyslipidemia, diabetic neuropathy, diabetic retinopathy Past surgical history: CABG Social history: Denies smoking, alcohol, other illicit drug abuse 09/06/2024 WBC 31, hemoglobin 10.6, platelets 682. Sodium 136, potassium 4.2, BUN 36, creatinine 1.4, blood sugar 341, calcium 9.3, phosphorus 2.4, magnesium 2.1, LFTs normal, albumin 3.1, urinalysis shows significant proteinuria and glucosuria. Echocardiogram showed ejection fraction 55% peripheral arterial Doppler showed severe peripheral vascular disease. Venous Doppler showed no DVT in both legs foot MRI showed questionable early osteomyelitis. 09/08/2024 patient currently seen in medical floor. Sugar seems to be much better today. Insulin dose adjusted by primary team creatinine stable at 1.3. Had a long conversation with patient and family regarding right BKA for his right foot metatarsal stump infection. He seems to be in agreement. Conveyed the same to Dr. Miller and primary team. Blood pressure 119/67, blood sugar this morning was very low. WBC 20.8, hemoglobin 8.6, platelets 492. Albumin 2.6 09/09/2024: patient seen and examined at bedside, blood glucose 223 in the AM, insulin dose adjusted per primary team, Cr 1.4. , BUN 53 from 44. UOP 1400. plan for BKA or RLE today, NPO pending surgery with Dr. Miller 09/10/2024: Patient seen and examined at bedside, blood glucose 330 in the AM, patient received 30 units glargine at bedtime yesterday. primary team will restart DM medications. patient is s/p Right BKA with Dr. Miller. patient reports no fevers, chills, pain. pending discharge likely tomorrow per Dr. Miller, dressing change tomorrow. ID consulted, per Dr. Blankenship, ok for all po regimen of keflex 1000 tid for 3 days after amputation 09/11/2024: Patient seen and examined at bedside, sitting upright, after finishing breakfast, blood glucose in the AM was 192. pt reports no fevers, chills, pain. Pt is s/p bka with dr. Miller on 09/09, no systemic signs of infxn, leukocytosis downtrending. continues on keflex per Dr. Blankenship recandrés, likely discharge tomorrow to snf 09/12/2024: Patient seen and examined at bedside. sitting upright after finishing breakfast. Blood glucose in the am was 86, asymptomatic (getting 7 units short acting scheduled) Pt is s/p BKA with Dr. Miller on 09/09. no systemic signs of infection, Continues on keflex, per Dr. Blankenship recandrés, dispo to SNF . pt has not had a BM in 2 days. reccomend d/c flash. will follow up with Dr. Miller on 09/30 for removal of johnathan. 09/13/2024 Patient seen and examined at bedside, Finger AM BG is 81, asymptomatic, alert and oriented. s/p BKA on 09/09, no systemic signs of infection, continues on Keflex per ID recs, pending dispo to SNF (continue to await placement and insurance auth). 2x BM today. will f/u with Dr. Miller for removal of johnathan on 09/30. 09/14/2024: No overnight events. Patient seen and examined at bedside; they report feeling generally well today with no new complaints or concerns. Pending discharge to SNF (continuing to await placement and insurance authorization). Will follow up with Dr. Miller for removal of the johnathan on 09/30. Exam Vital Signs Temp Pulse Resp BP Pulse Ox O2 Del Method O2 Flow Rate 97.2 F 77 18 113/60 95 Room Air 0 09/14/24 12:00 09/14/24 12:00 09/14/24 12:00 09/14/24 12:00 09/14/24 12:00 09/14/24 12:00 09/14/24 04:00 Narrative Exam Physical Exam: General: A/O x3, no acute distress, well-nourished, well-developed. Skin: Warm, dry, intact, no obvious rash. Head: Normocephalic, atraumatic. Eyes: PERRL, EOMI. Anicteric, vision grossly intact. Ears: No ear pain, no ear discharge, Hearing grossly intact. Nose: No nasal discharge. Mouth/Throat: Oral mucosa moist. No obvious lesions in oropharynx. Neck: Neck supple, non-tender, no cervical lymphadenopathy. Cardiovascular: Regular rate and rhythm, no murmur, no JVD or carotid bruits. +S1/S2. Respiratory: Bilateral lungs are clear to auscultation and percussion, respirations unlabored, no crackles, no wheezing. No accessory muscle use. Gastrointestinal: Soft, nontender, non-distended, no palpable masses. No guarding or rebound tenderness. Peristalsis present. Extremities: Right BKA. No edema, no cyanosis, no clubbing. 2+ radial pulse left leg, 2+ posterior tibial pulse left leg. Neuro: No focal deficits observed. Conversant, moving all extremities. No overt cerebellar signs/incoordination. Psychiatric: Cooperative, appropriate affect. Objective Labs 09/11/24 05:11 09/11/24 05:11 Quality Measures Quality Measures sepsis Current suspected stage: ruled out Possible source: bone/joint, genitourinary and skin/soft tissue Blood cultures ordered: yes Antibiotic ordered: No Advance care planning discussed with:: patient Assessment & Plan Assessment Current Active Medications: Generic Name Dose Route Start Last Admin Trade Name Freq PRN Reason Stop Dose Admin Acetaminophen 650 mg 09/01/24 22:20 09/06/24 05:50 Acetaminophen 325 Mg Tablet PO 10/01/24 22:19 650 mg Q6H PRN Administration PAIN SCALE 1-3 (mild Amlodipine Besylate 10 mg 09/07/24 09:00 09/14/24 09:10 Amlodipine Besylate 5 Mg Tablet PO 10/07/24 08:59 10 mg QDAY ALEXIS Administration Aspirin 81 mg 09/02/24 09:00 09/14/24 09:10 Aspirin Ec 81 Mg Tabec PO 10/02/24 08:59 81 mg QDAY ALEXIS Administration Atorvastatin Calcium 20 mg 09/12/24 21:00 09/13/24 21:31 Atorvastatin Calcium 20 Mg Tablet PO 10/12/24 20:59 20 mg HS ALEXIS Administration Bisacodyl 5 mg 09/06/24 09:00 09/14/24 09:10 Bisacodyl 5 Mg Tabec PO 10/06/24 08:59 5 mg QDAY ALEXIS Administration Protocol Dextrose 25 ml 09/03/24 11:13 09/06/24 20:55 Dextrose 50%-Water Inj 50 Ml Syringe IV 10/03/24 11:12 25 ml Q15MIN PRN Administration BG 50-70 responsive npo pt Dextrose 50 ml 09/03/24 11:13 Dextrose 50%-Water Inj 50 Ml Syringe IV 10/03/24 11:12 Q15MIN PRN BG <50 OR BG <70 & pt unresponsive Finasteride 5 mg 09/02/24 09:00 09/14/24 09:11 Finasteride 5 Mg Tablet PO 10/02/24 08:59 5 mg QDAY ALEXIS Administration Glucagon 1 mg 09/03/24 11:13 Glucagon Inj 1 Mg Vial IM Q15MIN PRN BG <70, and no IV access Heparin Sodium (Porcine) 5,000 unit 09/02/24 09:00 09/14/24 09:11 Heparin Sod Inj 5000 Unit/Ml Vial SC 09/16/24 08:59 5,000 unit Q12HR ALEXIS Administration Insulin Glargine 30 unit 09/13/24 21:00 09/13/24 22:11 Insulin Glargine (Lantus) 5 Unit/0.05 Ml (Per 5 Units) SC 10/13/24 20:59 30 unit HS [facility]LEXIS Administration Insulin Human Lispro 0 unit 09/09/24 21:00 09/14/24 11:46 Insulin Lispro (Admelog) 1 Unit/0.01 Ml Unit SC 10/09/24 20:59 5 unit ACHS ALEXIS Administration Protocol Insulin Human Lispro 5 unit 09/14/24 11:30 09/14/24 11:47 Insulin Lispro (Admelog) 1 Unit/0.01 Ml Unit SC 10/14/24 11:29 5 unit AC [facility]LEXIS Administration Lisinopril 40 mg 09/05/24 09:00 09/14/24 09:11 Lisinopril 20 Mg Tablet PO 10/05/24 08:59 40 mg QDAY ALEXIS Administration Metoclopramide HCl 10 mg 09/06/24 00:50 09/06/24 02:30 Metoclopramide Inj 5 Mg/Ml Vial 2 Ml IVP 10/06/24 00:49 10 mg Q8HR PRN Administration NAUSEA OR VOMITING Protocol Morphine Sulfate 1 mg 09/09/24 20:24 09/11/24 00:00 Morphine Sulf Inj 10 Mg/Ml Vial IVP 09/14/24 20:23 1 mg Q3HR PRN Administration PAIN SCALE 7-10 (Severe Ondansetron HCl 4 mg 09/06/24 11:00 Ondansetron Inj 2 Mg/Ml Inj 2 Ml IVP 10/06/24 10:59 Q6HR PRN NAUSEA OR VOMITING Protocol Oxycodone/Acetaminophen 1 tab 09/09/24 20:24 09/10/24 19:46 Oxycodone/Apap 5/325 Tablet PO 09/14/24 20:23 1 tab Q6HR PRN Administration PAIN SCALE 7-10 (Severe Sennosides 1 tab 09/01/24 22:20 09/05/24 05:23 Senna Tablet PO 10/01/24 22:19 1 tab QDAY PRN Administration constipation Protocol Sertraline HCl 50 mg 09/02/24 21:00 09/13/24 21:30 Sertraline Hcl 25 Mg Tablet PO 10/02/24 20:59 50 mg HS ALEXIS Administration Sitagliptin Phosphate 100 mg 09/08/24 09:00 09/14/24 09:11 Sitagliptin Phosphate 50 Mg Tablet PO 10/08/24 08:59 100 mg QDAY ALEXIS Administration Plan Mr. Marc is a 74-year-old man with significant past medical history of longstanding hypertension, uncontrolled diabetes mellitus, dyslipidemia, diabetic neuropathy, diabetic retinopathy, diabetic foot who presented to the hospital with a chief complaints of worsening of his wound on right foot stump. He is s/p R BKA with Dr. Miller 09/09 without signs of systemic infection. Pending discharge to SNF (continuing to await placement and insurance authorization). Will follow up with Dr. Miller for removal of the johnathan on 09/30. 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 pending discharge to snf. PLAN: -s/p BKA with Dr. Miller 09/09,dispo to snf (pending insurance auth) - wound care consulted, appreciate recs. -f/u with Dr. Miller 09/30 for removal of johnathan. #Uncontrolled diabetes mellitus- improved A1c on 04/06/2024 is 13.1 A1c: 08/2024-A1c 8.6. sugars previously noted at 500 during this admission 8/4 AM gluc 223 8/5 AM gluc 330 8/6 AM gluc 192 8/7 AM gluc 86- asymptomatic 8/8 AM gluc 81- asymptomatic 8/9 AM gluc 138 asymptomatic -Patient is currently on insulin, managed per primary team #JULIO on CKDIII- resolved Creatinine markedly improved. Underlying CKD from diabetic nephropathy. 09/10 Cr. 1.2 8/ Cr 1.1 Urine Cr: 59 Urine Protein: 36 Gave iron, Procrit for anemia of chronic kidney disease #History of hypertension -Blood pressure at the time of admission is 136/74 mmHg -Patient is using metoprolol and lisinopril at home Plan -Currently on amlodipine, lisinopril #History of CAD s/p CABG -Patient is using aspirin and atorvastatin at home. #Dyslipidemia -Lipid profile is within normal limits on 04/06/2024 cont atorvastatin 20 mg qhs #Constipation -Managed as per primary team Plan of care discussed with primary team Plan discussed with nephrology attending Dr. Sharon Bell, DO Internal Medicine PGY-1 Attending Provider Attestation/Addendum Patient seen and examined with resident physician Dr. Villegas. Note reviewed, agree with findings and recommendations. Patient comfortable. s/p right BKA today with Dr. Kwock Blood sugars are high and blood pressure seems to be stable. Creatinine stable. Spoke to team-continue with [facility] Patient agreed to go to rehab temporarily. Spoke to daughter at bedside.
--- NOTE | 2024-09-14 16:10 | PC.SS ---
Addendum entered by Bella Hadley 09/14/24 16:30: 1630- P/u eta 1715 to [facility] [employer] Original Note: [id number] received a call from [facility] [phone] [facility] [employer] with an AUTH for placement. AUTH #[id number]. ASW will obtain GIRISH from [facility] denied the approval for transport. ASW will arrange transportation.
--- NOTE | 2024-09-14 17:12 | ESDS_ITS ---
<Statement entered by James Galindo MD - 09/18/24 14:37> I reviewed above note and agree with findings and plans. I have also personally examined the patient with medicine team and went over assessment and plan with medical team including editorial intern and resident physician. <Statement entered by Neto Vaughan MD - 09/14/24 17:32> Patient was seen and examined by me personally. I have reviewed the below documentation by the team resident and agree with its findings except as below. Discharge plan was discussed with the attending, Dr. Galindo. Mr. Marc is a 74-year-old male with past medical historyas below admitted to telemetry for SIRS positive 2/2 right foot osteomyelitis was started on IV antibiotics, foot x-ray showed cortical bone destruction of right metatarsals and right foot osteomyelitis. Patient did have underlying poor healing of the previous transmetatarsal amputation done in April 2024, patient's family initially declined BKA, patient underwent incision and drainage on September 04 and plan was to discharge patient home with home health on IV antibiotics however patient's family changed their decision and decided to proceed with below-knee amputation which patient received on September 09, 2024. Further disposition to discharge patient to [facility], patient completed antibiotic treatment here. Patient insulin regimen was adjusted, JULIO resolved. Patient is stable for discharge. Patient responded well to hospital treatment. Neto Vaughan MD Internal Medicine, PGY-2 Planned Discharge Date 09/14/24 DS: Providers Provider Date of admission: 09/01/24 22:59 Primary care physician: Yonny Herrera MD Admitting Provider: Joel Delaney MD Attending Provider on Admission: Jaki Mcgraw DO Consults: 09/02/24 08:00 Referral Physical Therapy Routine Comment: Physician Instructions: Referral Wound Care Routine Comment: 09/02/24 09:17 Referral OP Wound Healing Dept Routine Comment: 09/02/24 09:51 Consult to Infectious Diseases Urgent Comment: Consulting Provider: David Blankenship 09/02/24 11:09 Consult to General Surgery Routine Comment: Consulting Provider: Hollie Miller 09/02/24 13:48 Referral Nutritional Services Routine Comment: Wounds 09/03/24 09:00 Consult Diabetic Routine Comment: 09/03/24 13:36 Consult to Cardiology Routine Comment: Cardiac clearance for osteomyelitis derbridement Consulting Provider: Je Davisonusagar Thania 09/06/24 10:55 Consult to Nephrology Routine Comment: JULIO Consulting Provider: Yonny Herrera Attending Provider on DC: James Galindo MD Discharging Provider: Neto Vaughan MD Anticipated date of discharge: 09/14/24 DS: Diagnosis Problem List Completed Was Problem List Reviewed/Reconciled?: Yes Hospital Course Hospital Course Hospital course: Reason for hospitalization:?Right foot transmetatarsal amputation site osteomyelitis and UTI Summary: This patient is a 74-year-old male with a history of PAD, CAD status post PCI, HTN, T2DM, BPH, HLD, s/p right foot TMA was brought to [facility] ED by EMS on 09/01/2024 for reported generalized fatigue and malaise. The patient's daughter reported that the patient had increasing weakness and unresponsiveness, along with increasing redness on the patient's foot. In the ED, the patient had elev ated temperature, marked leukocytosis, elevated ESR, elevated creatinine, and UA positive for bacteria, WBC, and urine nitrites. Imaging suggested osteomyelitis of right foot TMA. The patient was admitted to [facility] for right foot TMA osteomyelitis and UTI. Patient was started on IV Rocephin and vancomycin on 09/01. General surgery was consulted, Dr. Garcia was initially notified due to prior care, but patient's family requested a different surgeon. Changed general surgery consultation to Dr. Miller on 09/02. Infectious disease was consulted. Rapid response was called at 1130 on 09/02 due to significant shivering, which was soon upgraded to sepsis alert due to abnormal vitals. On conclusion of rapid response, the patient had improvement in shivering and was upgraded to telemetry floor for closer monitoring in atrial fibrillation on EKG. Ceftriaxone started on 09/01 was swapped to piperacillin/tazobactam on 09/02, vancomycin started on 09/01 unchanged. On 09/03, cardiology was consulted for surgery clearance, and provided clearance for surgery on the same day. General surgery notified the patient on 09/03 and they will plan for I&D of the right foot, explained that there was still significant chance that the patient will need BKA. General surgery performed I&D of right TMA stump and right heel eschar on 09/04. Overnight from 09/04 to 09/05, the patient had critical el evation of blood glucose, prompting tighter glucose control. Urine culture on 09/05, urine culture resulted as E. coli and right TMA wound culture resulted as micrococcus and related genera. On 09/06, ID recommended changing antibiotic regimen to doxycycline, metronidazole, and ceftriaxone, which was appreciated and acted upon by primary medicine team. Nephrology was consulted on 09/06 for JULIO on CKD and management of diabetes as the on-call latent print examiner, Dr. Herrera, is the patient's PCP, to whom the patient's family wanted on board for the patient's care. Nephrology restarted the patient's home Januvia, glipizide, and Ozempic, and also discussed with the patient and his family about how the patient might benefit from right BKA. Patient had an episode of hypoglycemia overnight 09/06 to 09/07, prompting medicine team to readjust insulin regimen. Nephrology held patient's home glipizide on 09/07 due to episode of hypoglycemia. On 09/08, insulin regimen was decreased due to overnight hypoglycemia. On 09/09, patient had right BKA performed by general surgery. ID placed patient on Cephalexin due to BKA. On 09/14, patient was alert and oriented to person, place, and situation. Last bowel movement 09/14. Vitals and labs were stable, patient medically cleared for discharge to SNF. Imaging: ? Foot x-ray 09/01/2024: Osteomyelitis involving amputated metatarsals, poorly visualized on this limited study ? Foot MRI 09/02/2024: Negative for calcaneal osteomyelitis. There is cortical irregularity involving all of the amputated stumps of thetarsals suspicious for early osteomyelitis, patient be clinically correlated ? Arterial/peripheral duplex 09/03/2024: Bilateral peripheral obstructive arterial disease, consider correlating with CTA abdominal aorta iliofemoral runoff post intravenous contrast ? Echocardiogram ultrasound 09/03/2024: Normal LV size and function, estimated EF at 55%. There is grade 1 diastolic dysfunction. The RV is normal in size and systolic function. Mild MAC. Trace MR and TR. Aortic valve sclerosis. Discharge Recommendations: - Follow up with PCP within 1 week of discharge - Continue rest of medications as previously prescribed - Return to the ED or call EMS if symptoms return and/or worsen - Stop Plavix, only take aspirin 81 mg per recommendations by cardiology - Follow-up with Dr. Miller next week in outpatient clinic. The office will schedule appointment. If you need to reschedule please call [phone] - Right BKA [place] to be removed 3 weeks after surgery - Follow wound care instructions noted below If you don't have a PCP, you can make an appointment at the [facility]: [address] [place] [address] Hospital Diagnoses: #Right foot osteomyelitis at right transmetatarsal amputation site (resolved) #Right below knee amputation #Right plantar edema (resolved) #Eschar of right heel (resolved) #Leukocytosis (resolving) #Urinary tract infection (E. coli; resolving) #JULIO on CKD, likely secondary to sepsis versus dehydration (resolved) #Metabolic acidosis, anion gap, secondary to lactic acidosis (resolved) #Anemia of chronic disease #Hyperglycemia #Insulin dependent Type 2 diabetes mellitus, uncontrolled #Diabetic neuropathy #Dyslipidemia #Peripheral artery disease #History of right thrombus in RLE #Thrombocytosis #Constipation #I&D, excisional debridement of right foot #CAD status post PCI #Primary hypertension #Hypophosphatemia (resolved) #Hypomagnesemia (resolved) Patient plan of care was discussed with the senior resident Dr. Nava (PGY-2) and attending physician Dr. Galindo. Mando Lima, PGY1 Status at Discharge Overall status at discharge: patient is back to baseline Time Spent with Patient Time attestation: Total time spent providing and/or coordinating discharge services: Time spent: Greater than 30 minutes Exam Vital Signs Temp Pulse Resp BP Pulse Ox O2 Del Method O2 Flow Rate 97.2 F 83 18 113/64 95 Room Air 0 09/14/24 16:09/14/24 16:00 09/14/24 16:09/14/24 16:09/14/24 16:09/14/24 16:09/14/24 04:00 Narrative Exam Physical Exam: General: Alert, no acute distress. Skin: Warm, dry, intact, no obvious rash. Head: Normocephalic, atraumatic. Eye: Normal conjunctiva, PERRL. Cardiovascular: Regular rate and rhythm, no murmur, +S1/S2. Respiratory: Lungs are clear to auscultation, respirations unlabored, no crackles, no wheezing. Gastrointestinal: Soft, nontender, non-distended. No guarding or rebound tenderness. Extremities: No edema, no cyanosis, no clubbing. 2+ radial pulse bilaterally. Right BKA. Neuro: No focal deficits observed. Conversant, moving all extremities. No overt cerebellar signs/incoordination. Psychiatric: Cooperative, appropriate affect. Discharge Plan Plan Patient Disposition: Xfer Skilled Nsg Fac (SNF) Patient condition on transfer: Stable Care Plan Goals: Take amlodipine, lisinopril for blood pressure control. We have changed your insulin control regimen, take 30 units of glargine every night, 5 units of lispro with meals, sliding scale on top. New dose Januvia 100 mg daily, hold Ozempic and glipizide until you follow-up with primary care physician. Stop Plavix as per your sieve grader tender, follow-up with cardiology outpatient. Follow-up with nephrology outpatient, follow-up with primary care physician in 1 week Return to emergency department if symptoms worsen 1) Follow up with Dr. Miller next week. The office will call to schedule appointment. If you need to reschedule please call [phone] 2) Right BK Amputation johnathan to be removed 3 weeks after surgery (approx 09/[address] Miller) Wound care: - Right BKA: lightly cleanse with wound cleanser, pat dry. Cover incision line with telfa and secure with kerlix roll. Apply ring conductor sock and stump protector daily Elevate 2 pillows above heart level while in bed - Blanchable redness to left heel: allyven dressing with negative heel pressure at all times Negative heel pressure at all times -Blanchable redness with epidermal stripping over gluteal cleft: allyven dressing. Change PRN for falling off. Side to side repositioning Q2 hrs except for meals Prescriptions/Referrals Prescriptions/Med Rec: New amlodipine 10 mg tablet 10 mg PO QDAY Qty: 0 0RF oxycodone-acetaminophen 5-325 mg Tablet 1 tab PO Q6HR PRN (Reason: Pain Scale 7-10 (Severe) Qty: 0 0RF insulin lispro 100 unit/mL Solution 5 unit SCi AC Qty: 0 0RF Januvia 50 mg Tablet 100 mg PO QDAY Qty: 0 0RF Continued aspirin [Bert Low Dose Aspirin] 81 mg Tablet,Delayed Release (Dr/Ec) 81 mg PO QDAY oxybutynin chloride 10 mg tablet extended release 24hr 10 mg PO HS Patient Comments: TAKE 1 TABLET BY MOUTH AT BEDTIME sertraline 50 mg tablet 50 mg PO DAILY Patient Comments: TAKE 1 TABLET BY MOUTH ONCE DAILY insulin lispro 100 unit/mL Solution 0 sliding scale dose SCi AC Qty: 2 0RF (DME) FreeStyle Singh 14 Day Sensor Kit See Rx Instructions .Route Qty: 1 0RF Rx Instructions: As directed (DME) insulin syringe-needle U-100 [Insulin Syringe] 0.5 mL 29 gauge x 1/2 syringe See Rx Instructions .Route Qty: 10 0RF Rx Instructions: As directed atorvastatin [Lipitor] 10 mg Tablet 20 mg PO HS Qty: 30 0RF Renal-Chata 0.8 mg tablet 1 tab PO Q24H Qty: 30 0RF bisacodyl 5 mg tablet,delayed release (DR/EC) 5 mg PO PRN Qty: 30 0RF lisinopril 40 mg Tablet 40 mg PO QDAY Qty: 30 0RF finasteride 5 mg Tablet 5 mg PO QDAY Qty: 30 0RF Changed insulin glargine [Lantus U-100 Insulin] 100 unit/mL Solution 30 unit SCi HS Qty: 2 0RF Held Ozempic 1 mg/dose (4 mg/3 mL) pen injector 1 mg subcut QWEEK Hold Instructions: Resume on 09/21/24. Follow Up with PCP glipizide 5 mg Tablet Extended Release 24hr 5 mg PO BID Qty: 60 0RF Hold Instructions: Resume on 09/21/24. Follow up with PCP Discontinued clopidogrel [Plavix] 75 mg Tablet 75 mg PO QDAY metoprolol tartrate 25 mg Tablet 50 mg PO BID clopidogrel 75 mg tablet 75 mg PO QDAY Qty: 30 0RF metoprolol tartrate 25 mg Tablet 50 mg PO BID Qty: 60 0RF Januvia 50 mg Tablet 50 mg PO QDAY Qty: 30 0RF Referrals: Yonny Herrera MD [Primary Care Provider] - Patient/Caregiver Discharge Instructions Discharge Activity: as per physical therapy Education Materials: Diabetes: Inspecting Your Feet, Diabetes: Caring for Your Body, Amputation Phantom Sensation Pain, Adjusting to Limb Loss, Preventing Surgical Site Infections Print Language: Pashto Stand Alone Forms: Martha Award Info., Patient Portal Info Letter Discharge Order Discharge Orders: Discharge (Routine); Ordered 09/14/24 Ordered By: Neto Vaughan Quality Discharge Quality Measures none
== END 2024-09-14 16:59 | disposition skilled nursing facility (03) | DRG 463 ==
LOC: SERX 21:08 → SERHOLD 09-02 06:21 → S3NX 09-02 06:21 → S2NX 09-02 12:27 → S3SX 09-10 15:58
PROVIDERS: Internal Medicine Infectious Disease; Physician Assistant Medical; Surgery; Admitting Provider Student in an Organized Health Care Education/Training Program; Emergency Provider Emergency Medicine; PCP Internal Medicine; Visit Provider Internal Medicine
PROC: 0JBQ0ZZ Excision of Right Foot Subcutaneous Tissue and Fascia, Open Approach (ICD-10-PCS; principal; 2024-09-04 11:15)
PROC: 0Y6H0Z1 Detachment at Right Lower Leg, High, Open Approach (ICD-10-PCS; CPT 27880; principal; 2024-09-09 15:00)
DX: T87.43 Infection of amputation stump, right lower extremity (principal); A41.51 Sepsis due to Escherichia coli [E. coli]; R65.20 Severe sepsis without septic shock; E11.52 Type 2 diabetes mellitus with diabetic peripheral angiopathy with gangrene; M86.171 Other acute osteomyelitis, right ankle and foot; N39.0 Urinary tract infection, site not specified; N17.9 Acute kidney failure, unspecified; E87.20 Acidosis, unspecified; L03.115 Cellulitis of right lower limb; L02.611 Cutaneous abscess of right foot; Y83.5 Amputation of limb(s) as the cause of abnormal reaction of the patient, or of later complication, without mention of misadventure at the time of the procedure; I12.9 Hypertensive chronic kidney disease with stage 1 through stage 4 chronic kidney disease, or unspecified chronic kidney disease; Z86.73 Personal history of transient ischemic attack (TIA), and cerebral infarction without residual deficits; E78.5 Hyperlipidemia, unspecified; I25.10 Atherosclerotic heart disease of native coronary artery without angina pectoris; N40.0 Benign prostatic hyperplasia without lower urinary tract symptoms; F32.A Depression, unspecified; E11.40 Type 2 diabetes mellitus with diabetic neuropathy, unspecified; E11.69 Type 2 diabetes mellitus with other specified complication; E11.22 Type 2 diabetes mellitus with diabetic chronic kidney disease; D63.1 Anemia in chronic kidney disease; B96.89 Other specified bacterial agents as the cause of diseases classified elsewhere; E11.319 Type 2 diabetes mellitus with unspecified diabetic retinopathy without macular edema; E11.649 Type 2 diabetes mellitus with hypoglycemia without coma; E11.65 Type 2 diabetes mellitus with hyperglycemia; E87.5 Hyperkalemia; F19.90 Other psychoactive substance use, unspecified, uncomplicated; I48.91 Unspecified atrial fibrillation; N18.30 Chronic kidney disease, stage 3 unspecified; Z75.1 Person awaiting admission to adequate facility elsewhere; Z79.02 Long term (current) use of antithrombotics/antiplatelets; Z79.4 Long term (current) use of insulin; Z79.82 Long term (current) use of aspirin; K59.00 Constipation, unspecified; Z79.84 Long term (current) use of oral hypoglycemic drugs; Z79.899 Other long term (current) drug therapy; Z95.1 Presence of aortocoronary bypass graft; R79.1 Abnormal coagulation profile; Z95.2 Presence of prosthetic heart valve; Z98.61 Coronary angioplasty status
CPT/HCPCS: 36415; 71045; 73630; 73718; 80053; 80069; 80202; 81001; 82010; 82570; 82728; 83036; 83540; 83550; 83605; 83735; 83880; 84100; 84145; 84156; 85025; 85046; 85610; 85652; 85730; 86140; 86803; 86850; 86900; 86901; 86923; 87040; 87070; 87075; 87076; 87077; 87086; 87186; 87205; 87400; 87811; 93005; 93225; 93306; 93922; 93970; 94640; 96365; 96366; 97163; 99284; A4217; A4649; A9270; J0696; J1100; J1171; J1644; J1815; J2250; J2270; J2405; J2543; J2704; J2765; J2795; J3010; J3372; J3375; J3475; J3490; J7030; J7050; J7120; Q0138; Q5105

== ENCOUNTER 2024-09-30 19:45 | Observation (INO) | payer MEDICARE, MEDICAID, SELFPAY ==
[2024-09-30 20:50] VITALS: PULSE 114; RESP 16; O2SAT 97; BMI 30.4
[2024-09-30 21:02] VITALS: BP 125/84; PULSE 99; RESP 16; TEMP 36.6; O2SAT 96
--- NOTE | 2024-09-30 21:14 | EDNOTE_ITS ---
Nausea/Vomit./Diarrhea-RME/HPI General Chief complaint: Nausea/Vomiting/Diarrhea Stated complaint: VOMITTING Time Seen by Provider: 09/30/24 21:13 Arrival date/time: 09/30/24 19:45 RME / HPI RME / HPI Narrative: Dr. Singh?s Main ED Evaluation: 74yo male with a history of DMII, HTN, CKD, CAD, TIA, PVD, BPH, depression, recently discharged on 09/04/24 after excisional debridement of right BKA stunt and heel eschar, currently in rehab now presenting with several bouts of nausea, vomiting, and relative constipation with no bowel movement for 5 days. History obtained from rehabilitative staff members, as patient is confused and unable to provide a succinct history. Related Data Home Medications ?Medication ?Instructions ?Recorded ?Confirmed aspirin 81 mg tablet,delayed 81 mg PO QDAY 11/17/17 release (Bert Low Dose Aspirin) semaglutide 1 mg/dose (4 mg/3 mL) 1 mg subcut QWEEK 09/02/24 subcutaneous pen injector (NPS) Held on 09/14/24. Instructions: Resume on 09/21/24. Follow Up with PCP oxybutynin chloride 10 mg 10 mg PO HS 09/02/24 5 tablet,extended release 24 hr sertraline 50 mg tablet 50 mg PO DAILY 09/02/2408/07 Previous Rx's ?Medication ?Instructions ?Recorded atorvastatin 10 mg tablet (Lipitor) 20 mg (2 x 10 mg) PO HS #30 tabs 04/08/24 bisacodyl 5 mg tablet,delayed 5 mg PO PRN #30 tabs 04/30 release finasteride 5 mg tablet 5 mg PO QDAY #30 tabs flash glucose sensor (FreeStyle #1 ea 04/08/24 Singh 14 Day Sensor kit) glipizide 5 mg tablet, extended 5 mg PO BID #60 tabs 0 04/08/24 release 24 hr Held on 09/14/24. Instructions: Resume on 09/21/24. Follow up with PCP insulin lispro 100 unit/mL 0 sliding scale dose SCi AC #2 04/08/24 subcutaneous solution vials insulin syringe-needle U-100 0.5 #10 ea 04/08/24 mL 29 gauge x 1/2 (Insulin Syringe) lisinopril 40 mg tablet 40 mg PO QDAY #30 tabs 04/08 vitamin B complex-vitamin C-folic 1 tab PO Q24H #30 ta bs 04/08/24 acid 0.8 mg tablet (Renal-Chata) amlodipine 10 mg tablet 10 mg PO QDAY #0 tabs insulin glargine 100 unit/mL 30 unit (0.3 mL) SCi HS # 2 pens 09/14/24 subcutaneous solution (Lantus U-100 Insulin) insulin lispro 100 unit/mL 5 unit (0.05 mL) SCi AC #0 mL 09/14/24 subcutaneous solution oxycodone-acetaminophen 5 mg-325 1 tab PO Q6HR PRN Christian n Scale 7-10 09/14/24 mg tablet (Severe #0 tabs sitagliptin phosphate 50 mg tablet 100 mg (2 x 50 mg) PO QDAY #0 tabs 09/14/24 (Januvia) Allergies Allergy/AdvReac Type Severity Reaction Status Date / Time No Known Allergies Allergy Verified 09/09/24 17:55 Review of Systems Review of Systems Systems Reviewed: All systems reviewed, normal except as documented Past Medical History Past Medical History NEUROLOGIC: Positive Transient Ischemic Attacks (TIA); Negative Neurological Disorders, Cerebrovascular Accident, Dementia, Alzheimer's Disease, Parkinson's Disease, Brain Tumor, Meningitis, Seizures, Epilepsy, Multiple Sclerosis, Cerebral Palsy, Amyotrophic Lateral Sclerosis (ALS/Yara Gehrig's), Guillain-[place] Syndrome, Spina Bifida, Paralysis, Peripheral Neuropathy, Baptiste's Palsy, Subdural Hematoma, Migraine, Head Trauma, Spinal Cord Injury or Traumatic Brain Injury CARDIAC: Positive Cardiac Disorders, Coronary Artery Disease, Hypercholesterolemia, Congestive Heart Failure and Hypertension; Negative Myocardial Infarction, Cardiac Arrhythmia, Atrial Fibrillation, Angina, Heart Murmur, Atherosclerotic Heart Disease, Peripheral Vascular Disease, Aneurysm, Congenital Heart Disease, Valvular Heart Disease, Rheumatic Fever, Cardiomyopathy, Edema, Pericarditis, Cellulitis, Deep Vein Thrombosis, Hypotens ion or Varicose Veins RESPIRATORY: Negative Chronic Obstructive Pulmonary Disease (COPD), Asthma, Bronchitis, Emphysema, Pneumonia, Pulmonary Fibrosis, Cystic Fibrosis, Tuberculosis, Pulmonary Embolism, Pulmonary Edema or Sleep Apnea GASTROINTESTINAL: Positive Obesity; Negative Gastrointestinal Disorders, Hepatitis, Cirrhosis, Pancreatitis, Celiac Disease, Gall Bladder Disease, Gastrointestinal Bleed, Esophageal Varices, Rouse's Esophagus, Colitis, Ulcerative Colitis, Diverticulitis, Diverticulosis, Ulcer, Colorectal Cancer, Irritable Bowel, Crohn's Disease, Obstructive Bowel, Hiatal Hernia, Hemorrhoids or Gastroesophageal Reflux Disease GENITOURINARY: Negative Genitourinary Disorders, Renal Disease, Kidney Stones, Polycystic Kidney Disease, Neurogenic Bladder, Inguinal Hernia, Dialysis, Prostate Cancer or Benign Prostatic Hyperplasia REPRODUCTIVE: Negative Genital Herpes, Gonorrhea, Syphilis or Testicular Cancer MUSCULOSKELETAL: Positive Arthritis; Negative Musculoskeletal Disorders, Muscular Dystrophy, Myasthenia Gravis, Marfan's Syndrome, Bone Cancer, Rheumatoid Arthritis, Osteoporosis, Degenerative Disk Disease, Gout, Scoliosis, Carpal Tunnel Syndrome, Fibromyalgia, Fractures, Degenerative Joint Disease, Osteomyelitis or Poliovirus ENT: Negative Cataracts, Glaucoma, Blind, Retinal Detachment, Macular Degeneration, Ear Infection, Deafness, Head Trauma or Eye Prosthesis ENDOCRINE: Positive Endocrine Disorders, Diabetes Mellitus Type 2 and Parathyroid Disease; Negative Diabetes Mellitus Type 1, Hypoglycemia, Tania's Syndrome, Walton's Disease, Hyperthyroidism, Hypothyroidism, Pituitary Disease, Systemic Lupus Erythematosus, Syndrome of Inappropriate Antidiuretic Hormone (SIADH), Adrenal Disease or Graves' Disease HEMATOLOGIC: Negative Blood Disorders, Anemia, Leukemia, Hemophilia, Thalassemia, Sickle Cell Disease or Clotting Problems PSYCHO/SOCIAL: Negative Psychiatric Problems, Schizophrenia, Recreational Drug Use, Bipolar Disorder, Depression, Anxiety, Behavior Problems, Self-Mutilation, Attention Deficit Disorder, Attention Deficit Hyperactivity Disorder, Depression, Post Traumatic Stress Disorder or Eating Disorder OTHER HISTORY: Positive Hospitalization and Falls; Negative Autoimmune Disease, Down Syndrome, Autism, Developmental Delay, Shingles, Blood Transfusions, Blood Transfusion Reaction, Anesthesia Reactions, Organ Transplant, Chemotherapy, Radiation Therapy, Hyperbaric Therapy, MRSA, VRSA, Vancomycin-Resistant Enterococci, Human Immunodeficiency Virus (HIV), Chicken Pox, Measles, Mumps, Rubella ([place] Measles), Pertussis, Clostridium Difficile, Cancer, Colorectal Cancer, Lung Cancer, Prostate Cancer or Testicular Cancer Family History FAMILY HISTORY: Positive Family Respiratory Disorders and Family Cardiac Disorders; Negative Family Psychiatric Problems, Family Gastrointestinal Problems, Family Cancer, Family Surgery or Family Anesthesia Reaction Surgical History SURGICAL: Positive Cardiac Surgery, Open Heart Surgery, Coronary Artery Bypass Graft, Coronary Stent, Cardiac Catheterization, Angiogram and Amputation; Negative Valve Replacement, Vascular Surgery, Pacemaker, Auto Implanted Cardiovert Defib, Carotid Endarterectomy, Endocrine Surgery, Thyroidectomy, Ear Surgery, Tympanostomy Tube, Eye Surgery, Nose Surgery, Oral Surgery, Tonsillectomy, Adenoidectomy, Cochlear Implant, Corneal Transplant, Throat Surgery, Abdominal Surgery, Tracheostomy, Gastric Bypass Surgery, Gastrostomy, Bowel Surgery, Nephrectomy, Transurethral Resection, Joint Replacement, Open Reduction Internal Fixation, Arthroscopy, Neurologic Surgery, Brain Shunt, Vasectomy or Organ Transplant Social History SMOKING STATUS: Never smoker SUBSTANCE USE: does not use ED Exam Narrative Physical exam: GENERAL APPEARANCE: alert and oriented x 2/3 with assist, well-developed, well- nourished, no acute distress VITALS: All vitals were reviewed and the pulse ox is 96% on room air, which is normal according to my interpretation. HEENT: Normocephalic, atraumatic; pupils equal, round, reactive to light; EOMI; mucous membranes pink, moist; oropharynx clear NECK: Supple LUNGS: CTABL; no wheezes, no rales, no rhonchi HEART: Regular rate, regular rhythm; normal S1, S2; no murmurs ABDOMEN: non distended; normal BS; soft, no tenderness, no guarding, no rebound; no masses, no organomegaly, no hernia BACK: no CVA tenderness EXTREMITIES: atraumatic; no edema NEUROLOGIC: awake; alert and oriented x4; cranial nerves II-XII grossly intact; no focal sensory or motor deficits PSYCHIATRIC: appropriate mood and affect SKIN: warm, dry, normal color; no rashes Course Quality Measures none Orders Category Date Time Status Soap Suds [Enema Administration] NOW Care 10/01/24 00:30 Active XR abdomen flat and uprght Stat Exams 09/30/24 21:22 Completed CBC [CBC] Stat Lab 09/30/24 21:41 Completed CMP [Comprehensive Metabolic Panel] Stat Lab 09/30/24 21:41 Completed Urinalysis, C/S if Indicated Stat Lab 09/30/24 21:22 Ordered Sodium Chloride 0.9% 500 ml [Ns] 500 ml Med 09/30/24 21:23 Discontinued IV 500 mls/hr Vital Signs Vital signs: Vital Signs Temperature 97.8 F 09/30/24 21:02 Pulse Rate 99 09/30/24 21:02 Respiratory Rate 16 09/30/24 21:02 Blood Pressure 125/84 09/30/24 21:02 Pulse Oximetry (%) 96 09/30/24 21:02 Oxygen Delivery Method Room Air 09/30/24 21:02 PROCEDURES: Rectal Disimpaction Time out performed rectal disimpaction: Yes Indication: fecal impaction Procedural Sedation: No Sedation/Analgesia: none Technique: manual disimpaction with gloved finger Result: significant stool output Patient Tolerated Procedure: well and no complications Nausea/Vomiting/Diarrhea MDM Narrative MDM Narrative:: Scribe Attestation: 09/30/24 - Cami Gruber am scribing for and in the presence of Dr. Singh. 74yo male with a history of DMII, HTN, CKD, CAD, TIA, PVD, BPH, depression, recently discharged on 09/04/24 after excisional debridement of right BKA stunt and heel eschar, currently in rehab now presenting with several bouts of nausea, vomiting, and relative constipation with no bowel movement for 5 days. History obtained from rehabilitative staff members, as patient is confused and unable to provide a succinct history. Please see PE findings. Lab markers demonstrate elevated WBC count 17k, elevated Hgb above baseline at 11.7 suggesting mild hemoconcentration, normal platelets, no left shift or bandemia, K 5.9, Creatinine double baseline at 2.1 with eGFR down to 32 representing 50% reduction in renal clearance. Glucose elevated at 403 without signs of ketosis. Routine x-ray demonstrated large stool burden without obstruction signs. Patient hydrated with saline to correct volume deficit and will require bowel cleansing and possible fecal rectal vault disimpaction. Will likely need admission to correct volume status and control blood sugar. Patient underwent fecal disimpaction and will administer soap suds enema to initiate bowel cleansing. Dx: severe constipation, hyperglycemia without ketosis, acute renal insufficiency due to dehydration. Patient data External records reviewed:: [facility] previous records (Per chart review, patient was admitted here on 09/01/24 for UTI.), EMS form and Pen[facility] records Clinical information provided by:: patient Social determinants that could affect healthcare access:: housing (SNF resident) Patient has the following chronic illnesses:: DMII, HTN, CKD, CAD, TIA, PVD, BPH, depression How is presenting disease/condition affected by chronic disease/condition?: uneffected by Evaluation data The following diagnostics were reviewed and interpreted by me:: lab results and radiology exam(s) Lab and/or radiology exams considered but not ordered:: none Interpretation Summary: [facility] Report Signed Patient: SPEEDY GALLEGO Record#: [id number] Birthdate: 1950 Age/Sex: 74 / M [facility] Dr: Ordering Physician: Ralph Juarez DO Date of Service: 09/30/24 Procedure(s): XR abdomen flat and uprght Accession Number(s): [id number] cc: Ralph Juarez DO; Alex Contreras MD; Yonny Herrera MD~ Examination: Abdomen 2 views TECHNIQUE: AP upright AP supine abdomen 2 views Date and time: September 30, 2024, 2148 hours INDICATIONS: Abdominal pain today FINDINGS: Large amounts of stool throughout the entire colon. No obstruction. No free air. [id number] bilateral hip osteoarthritis IMPRESSION: Large amounts of stool throughout the entire colon Dictated By: Alex Contreras Signed By: <Electronically signed by Alex Contreras MD in OV> 09/30/24 2201 Medications / Prescriptions Medications / Prescriptions considered but not ordered:: none Medication administrations:: Medication Administration History Discontinued Medications Sodium Chloride (Ns) 500 mls @ 500 mls/hr IV .Q1H ONE Stop: 09/30/24 22:22 Last Infusion: 09/30/24 23:55 Dose: Infused Documented By: Admin: 09/30/24 22:26 Dose: 500 mls/hr Documented By: KALIE see above Consultations Consultation(s) initiated? (list below): Yes Consultation #1 (Physician, Specialty, Details): Discussed case with Dr. Meza, the resident physician, attending Dr. Barney from Hospitalist service regarding admission. Discussed patients ED course, exam findings, labs, and radiology results. The Hospitalist agrees to accept the patient for admission. Time: 00:40 Diagnosis Nausea Differential Diagnosis: dehydration and other (SBO, constipation, electrolyte abnormality) Most likely diagnosis given after review of the tests above:: see clinical impression below Admission Indicated Admission indicated?: indicated Admission Request Was there a request for admission?: Yes Admission Attestation Admission request attestation: Discussed case with [] from Hospitalist service regarding admission. Discussed patients ED course, exam findings, labs, and radiology results. The Hospitalist [agrees,declines] to accept the patient for admission. Disposition Plan Disposition Plan: Admit Discharge Plan Plan Patient Disposition: Admit Acute Care w/in Hospital Prescriptions/Referrals Prescriptions/Med Rec: No Action aspirin [Bret Low Dose Aspirin] 81 mg Tablet,Delayed Release (Dr/Ec) 81 mg PO QDAY oxybutynin chloride 10 mg tablet extended release 24hr 10 mg PO HS Patient Comments: TAKE 1 TABLET BY MOUTH AT BEDTIME sertraline 50 mg tablet 50 mg PO DAILY Patient Comments: TAKE 1 TABLET BY MOUTH ONCE DAILY amlodipine 10 mg tablet 10 mg PO QDAY Qty: 0 0RF oxycodone-acetaminophen 5-325 mg Tablet 1 tab PO Q6HR PRN (Reason: Pain Scale 7-10 (Severe) Qty: 0 0RF insulin lispro 100 unit/mL Solution 5 unit SCi AC Qty: 0 0RF Januvia 50 mg Tablet 100 mg PO QDAY Qty: 0 0RF insulin glargine [Lantus U-100 Insulin] 100 unit/mL Solution 30 unit SCi HS Qty: 2 0RF Ozempic 1 mg/dose (4 mg/3 mL) pen injector 1 mg subcut QWEEK insulin lispro 100 unit/mL Solution 0 sliding scale dose SCi AC Qty: 2 0RF (DME) FreeStyle Singh 14 Day Sensor Kit See Rx Instructions .Route Qty: 1 0RF Rx Instructions: As directed (DME) insulin syringe-needle U-100 [Insulin Syringe] 0.5 mL 29 gauge x 1/2 syringe See Rx Instructions .Route Qty: 10 0RF Rx Instructions: As directed atorvastatin [Lipitor] 10 mg Tablet 20 mg PO HS Qty: 30 0RF glipizide 5 mg Tablet Extended Release 24hr 5 mg PO BID Qty: 60 0RF Renal-Chata 0.8 mg tablet 1 tab PO Q24H Qty: 30 0RF bisacodyl 5 mg tablet,delayed release (DR/EC) 5 mg PO PRN Qty: 30 0RF lisinopril 40 mg Tablet 40 mg PO QDAY Qty: 30 0RF finasteride 5 mg Tablet 5 mg PO QDAY Qty: 30 0RF Referrals: Yonny Herrera MD [Primary Care Provider] - In 1 week Problem List Clinical Impression: Constipation, Hyperglycemia without ketosis, Acute renal insufficiency Patient/Caregiver Discharge Instructions Print Language: [place] Verde[place] Stand Alone Forms: Martha Award Info., Patient Portal Info Letter
--- NOTE | 2024-09-30 21:22 | XR_ITS ---
Examination: Abdomen 2 views TECHNIQUE: AP upright AP supine abdomen 2 views Date and time: September 30, 2024, 2148 hours INDICATIONS: Abdominal pain today FINDINGS: Large amounts of stool throughout the entire colon. No obstruction. No free air. [id number] bilateral hip osteoarthritis IMPRESSION: Large amounts of stool throughout the entire colon
[2024-09-30 21:48] LABS: Basophils # (Auto) 0.1 Thou/mm3 (0.0-0.2); Basophils % (Auto) 0 % (0-2.5); Eosinophils # (Auto) 0.0 Thou/mm3 (0.0-0.5); Eosinophils % (Auto) 0 % (0-10); Hematocrit 36.2 % (41.0-53.0); Hemoglobin 11.7 g/dL (13.5-16.0); Immature Granulocytes Auto 0.14 Thou/mm3 (0.00-0.00); Lymphocytes # (Auto) 1.7 Thou/mm3 (1.0-4.8); Lymphocytes % (Auto) 10 % (10-50); Mean Corpuscular HGB Conc 32.3 g/dl (31.0-37.0); Mean Corpuscular Hemoglobin 29.5 pg (25.0-35.0); Mean Corpuscular Volume 91 fL (80-100); Monocytes # (Auto) 1.7 Thou/mm3 (0.0-0.8); Monocytes % (Auto) 10 % (0-12); Neutrophils # (Auto) 13.6 Thou/mm3 (1.8-7.7); Neutrophils % (Auto) 79 % (37-80); Nucleated Red Blood Cell # 0.00 Thou/mm3 (0.00-0.00); Nucleated Red Blood Cell % 0 /100 WBC (0); Platelet Count 287 Thou/mm3 (140-440); RDW Standard Deviation 60.6 fL (35.1-43.9); Red Blood Count 3.96 Miln/mm3 (4.50-5.90); White Blood Count 17.2 Thou/mm3 (3.8-10.6)
[2024-09-30 22:11] LABS: Alanine Aminotransferase 16 U/L (10-49); Albumin, Serum 3.9 gm/dL (3.4-4.8); Albumin/Globulin Ratio 1.4 (1.2-2.2); Alkaline Phosphatase 139 U/L (46-116); Anion Gap 14 (7-16); Aspartate Amino Transferase 11 U/L (0-34); BUN/Creatinine Ratio 21 Ratio (12-20); Bilirubin,Total 0.4 mg/dL (0.3-1.2); Blood Urea Nitrogen 44 mg/dL (9-23); Calcium 10.1 mg/dL (8.3-10.6); Calcium (Corrected) 10.2 mg/dL (8.5-10.1); Carbon Dioxide 28.9 mMol/L (20.0-31.0); Chloride 97 mMol/L (98-107); Creatinine (Component) 2.1 mg/dL (0.6-1.3); Estimated Creatinine Clearance 33.8 mL/min (>60); Globulin 2.8 gm/dL (2.3-3.5); Osmolality,Calculated 307 (275-295); Potassium 5.9 mMol/L (3.4-5.1); Sodium 140 mMol/L (136-145); Total Protein 6.7 gm/dL (5.7-8.2); eGFR 32 See Note
[2024-09-30 22:13] LABS: Glucose 403 mg/dL (74-106)
[2024-09-30] MEDS: SODIUM CHLORIDE 0.9% 500 ML 500 ML IV (22:26)
[2024-10-01] VITALS (8 sets, daily range): BP systolic 105–129; BP diastolic 56–79; PULSE 93–110; RESP 16–18; TEMP 36.1–37.1; O2SAT 93–96
[2024-10-01] MEDS: INSULIN LISPRO (AdmeLOG) 1 UNIT/0.01 ML UNIT 10 UNIT SC (02:06)
[2024-10-01] MEDS: RINGERS LACTATED 1000 ML 1,000 ML 100 ML IV ×2 (02:17→12:16)
[2024-10-01 02:21] LABS: Collection Type, Urine Clean Catch; Squamous Epithelial Cell,Urine 0 /hpf (0-5)
[2024-10-01 02:31] LABS: Bacteria,Urine Rare; Bilirubin,Urine 1+ (Negative); Blood,Urine Negative (Negative); Clarity,Urine Turbid (Clear/Hazy); Color,Urine Drk-Orange (Lt Yel-Yel); Glucose, Urine Trace (Negative); Hyaline Casts,Urine 1 /hpf (0-1); Ketones,Urine Trace (Negative); Leukocyte Esterase,Urine Positive (Negative); Nitrite,Urine Negative (Negative); PH,Urine 6.0 (5.0-7.0); Protein,Urine 1+ (Neg - Trace); RBC,Urine 1 /hpf (0-3); Specific Gravity,Urine 1.031 (1.001-1.035); Urobilinogen,Urine 4.0 mg/dL (0.0-1.0); WBC,Urine 24 /hpf (0-5)
[2024-10-01 02:33] LABS: Culture Indicated,Urine Yes
--- NOTE | 2024-10-01 03:16 | ESHP_ITS ---
<Statement entered by Hector Barney MD - 10/01/24 08:46> I have discussed and was present for the essential components of the history, physical examination, diagnosis, and treatment plan with the resident. I agree with the patient's care as documented by the resident and amended herein by me. Hector Barney MD FACP. Documentation for date of: 10/01/24 HPI History of Present Illness Chief complaint: Constipation History of present illness: 74 y/o M with PMHx significant for peripheral artery disease, coronary artery disease, hypertension, type 2 diabetes, BPH, right BKA presents with chief complaint constipation x 5 days and 1 episode of vomiting today. Patient reports no bowel movement for past 5 days, mild nausea with decreased p.o. intake during this time. He had 1 episode of nonbloody vomiting today. He also reports chronic urinary hesitancy secondary to BPH. Patient denies fevers, chills, chest pain, shortness of breath, abdominal pain, dysuria. ED COURSE: Labs significant for: WBC 17.2, potassium 5.9, bicarb 28.9, BUN 44, creatinine 2.1 (baseline 1.1), EGFR 32 (baseline greater than 60), glucose 403. Imaging significant for: Abdominal x-ray showing large stool burden without obstruction throughout colon. Patient received 500 mL normal saline while in the ED. Patient received manual disimpaction while in the ED, soapsuds enema ordered. PMH: PAD, CAD, HTN, T2DM, BPH PSH: Open heart valve replacement, CABG, right BKA SH: Denies alcohol, tobacco, illicit drug use. Allergies:?NKDA Medications: Amlodipine, aspirin, atorvastatin, finasteride, insulin, Januvia, lisinopril, oxybutynin, Latia-Chata, Zoloft Review of Systems Review of Systems Systems Reviewed: All systems reviewed, normal except as documented Past Medical History Past Medical History Comments PMH COMMENT: PMH: PAD, CAD, HTN, T2DM, BPH PSH: Open heart valve replacement, CABG, right BKA SH: Denies alcohol, tobacco, illicit drug use. Allergies:?NKDA Medications: Amlodipine, aspirin, atorvastatin, finasteride, insulin, Januvia, lisinopril, oxybutynin, Latia-Chata, Zoloft Exam Vital Signs Temp Pulse Resp BP Pulse Ox O2 Del Method 98.6 F 104 H 18 120/79 96 Room Air 10/01/24 02:00 10/01/24 02:00 10/01/24 02:00 10/01/24 02:00 10/01/24 02:00 10/01/24 02:00 Narrative Exam PE: Gen: Well-developed and well-nourished. HEENT: NCAT, PERRLA, EOMI, MMM, anicteric conjunctivae. CVS: normal S1 and S2. RRR. No M/R/G. Resp: CTA B/L. No rhonchi, rales, crackles or wheezing. Abd: soft, non-tender, non-distended. BS+ in all 4 quadrants. Nontender suprapubic mass. MSK: Good ROM in BUE & LLE. No edema or rash. Right BKA. Neuro: CN II-XII grossly intact. Strength 5/5 in BUE & LLE. Alert and oriented x2. Psych: appropriate mood and affect. Results: Labs 09/30/24 21:41 09/30/24 21:41 Labs: Short CBC 09/30/24 Range/Units 21:41 WBC 17.2 H (3.8-10.6) Thou/mm3 Hgb 11.7 L (13.5-16.0) g/dL Hct 36.2 L (41.0-53.0) % Plt Count 287 D (140-440) Thou/mm3 BMP 09/30/24 21:41 Sodium 140 Potassium 5.9 H Chloride 97 L Carbon Dioxide 28.9 BUN 44 H Creatinine 2.1 H Glucose 403 H* Calcium 10.1 Liver Function 09/30/24 Range/Units 21:41 Total Bilirubin 0.4 (0.3-1.2) mg/dL AST 11 (0-34) U/L ALT 16 (10-49) U/L Alkaline Phosphatase 139 H (46-116) U/L Albumin 3.9 (3.4-4.8) gm/dL Urine 10/01/24 Range/Units 01:41 Urine Color Drk-[place] A (Lt Yel-Yel) Urine Clarity Turbid A (Clear/Hazy) Urine pH 6.0 (5.0-7.0) Ur Specific [place] 1.031 (1.001-1.035) Urine Protein 1+ A (Neg - Trace) Urine Glucose (UA) Trace (Negative) Quality Measures Quality Measures VTE prophylaxis Advance care planning discussed with:: patient Medications Home Medications and Allergies Home Medications ?Medication ?Instructions ?Recorded ?Confirmed ?Type aspirin 81 mg tablet,delayed 81 mg PO QDAY 11/17/17 History release (Bert Low Dose Aspirin) semaglutide 1 mg/dose (4 mg/3 mL) 1 mg subcut QWEEK 09/02/24 History subcutaneous pen injector (Ozempic) Held on 09/14/24. Instructions: Resume on 09/21/24. Follow Up with PCP oxybutynin chloride 10 mg 10 mg PO HS 09/02/24 5 History tablet,extended release 24 hr sertraline 50 mg tablet 50 mg PO DAILY 09/02/2408/07 History Allergies Allergy/AdvReac Type Severity Reaction Status Date / Time No Known Allergies Allergy Verified 09/09/24 17:55 Visit Medications Acetaminophen (Acetaminophen 325 Mg Tablet) 650 mg PO Q6H PRN PRN Reason: Fever >100.4 or pain 1-3 Stop: 10/31/24 01:44 Dextrose (Dextrose 50%-Water Inj 50 Ml Syringe) 25 ml IV Q15MIN PRN PRN Reason: BG 50-70 responsive npo pt Stop: 10/31/24 01:44 Dextrose (Dextrose 50%-Water Inj 50 Ml Syringe) 50 ml IV Q15MIN PRN PRN Reason: BG <50 OR BG <70 & pt unresponsive Stop: 10/31/24 01:44 Glucagon (Glucagon Inj 1 Mg Vial) 1 mg IM Q15MIN PRN PRN Reason: BG <70, and no IV access Heparin Sodium (Porcine) (Heparin Sod Inj 5000 Unit/Ml Vial) 5,000 unit SC Q12HR ALEXIS Stop: 10/15/24 08:59 Lactated Ringer's (Lactated Ringers) 1,000 mls @ 100 mls/hr IV .Q10H ALEXIS Stop: 10/01/24 21:44 Last Admin: 10/01/24 02:17 Dose: 100 mls/hr Insulin Human Lispro (Insulin Lispro (Admelog) 1 Unit/0.01 Ml Unit) [address] [facility]; Protocol Stop: 10/31/24 07:29 Lactulose (Lactulose Syrup 20 Gm/30 Ml Udc) 20 gm PO TID ALEXIS; Protocol Stop: 10/31/24 05:59 Ondansetron HCl (Ondansetron Inj 2 Mg/Ml Inj 2 Ml) 4 mg IVP Q6H PRN; Protocol PRN Reason: NAUSEA OR VOMITING Stop: 10/31/24 01:44 Tramadol HCl (Tramadol Hcl 50 Mg Tablet) 50 mg PO Q6HR PRN PRN Reason: PAIN SCALE 4-10(Mod-Sev Stop: 10/06/24 01:44 Discontinued Medications Sodium Chloride (Ns) 500 mls @ 500 mls/hr IV .Q1H ONE Stop: 09/30/24 22:22 Last Infusion: 09/30/24 23:55 Dose: Infused Insulin Human Lispro (Insulin Lispro (Admelog) 1 Unit/0.01 Ml Unit) 10 unit SC X1 ONE Stop: 10/01/24 01:46 Last Admin: 10/01/24 02:06 Dose: 10 unit Assessment & Plan Plan 74 y/o M with PMHx significant for peripheral artery disease, coronary artery disease, hypertension, type 2 diabetes, BPH, right BKA presents with chief complaint constipation x 5 days and 1 episode of vomiting today, admitted for acute renal failure. #Acute renal failure Patient presented with complaints constipation no episode of vomiting, poor p.o. intake x 5 days. Routine labs revealed BUN 44, creatinine 2.1 from baseline 1.1, EGFR 32 from baseline greater than 60. Patient reports chronic urinary hesitancy due to BPH. Received 500 mL bolus normal saline in the ED. Noted to have nontender suprapubic mass on exam. - IVF: Lactated Ringer's at 100 mL/h x 3 L - Monitor daily renal function - Avoid nephrotoxins - Resume home BPH treatment - Bladder scan ordered, follow-up #Constipation Patient has constipation x 5 days. Abdominal x-ray showed significant stool burden without obstruction in the colon. Manage disimpaction performed in the ED. ED provider ordered soapsuds enema. - Lactulose 20 mg p.o. 3 times daily #Type 2 diabetes Patient history as stated. A1c 8.3% as of 09/05/2024. Glucose 403 in the ED. 10 units lispro x 1 given. Takes insulin glargine 10 units every morning and 30 units every afternoon, plus lispro 5 units 3 times daily. - ISS step 2 - Carb consistent meals - Lispro 5 units 3 times daily AC - Long-acting 25 units every afternoon #HTN #BPH #CAD #PAD Patient history as stated. Noted to have a nontender suprapubic mass on examination. - Bladder scan pending, follow-up - Resume home amlodipine 10 mg daily - Resume home aspirin 81 mg daily - Resume home finasteride 5 mg daily - Resume home lisinopril 40 mg daily #Right BKA Patient has right leg BKA, recent, surgical site clean dry and intact. - Wound care DVT prophylaxis: Heparin GI prophylaxis: None Diet: Cardiac, consistent carb Lines: Peripheral IV Code status: Full code Plan of care discussed with attending Dr. Barney. Jordan Meza MD PGY?2
--- NOTE | 2024-10-01 04:21 | PC.NURSE ---
Pt came in from ER, alert and oriented, not in respiratory distress. Pt has a right BKA wrap with dressing. Pt is no C/O of pain at this time.
[2024-10-01] MEDS: LACTULOSE SYRUP 20 GM/30 ML UDC PO (06:02)
[2024-10-01] MEDS: INSULIN LISPRO (AdmeLOG) 1 UNIT/0.01 ML UNIT 5 UNIT SC ×2 (08:24→17:23)
[2024-10-01] MEDS: INSULIN LISPRO (AdmeLOG) 1 UNIT/0.01 ML UNIT SC ×4 (08:24→20:11)
[2024-10-01] MEDS: HEPARIN SOD INJ 5000 UNIT/ML VIAL SC ×2 (08:25→20:10)
[2024-10-01] MEDS: ASPIRIN 81 MG CHEW PO (08:36)
[2024-10-01] MEDS: FINASTERIDE 5 MG TABLET PO (08:37)
--- NOTE | 2024-10-01 08:47 | PD.RESPRO ---
Documentation for date of: 10/01/24 Subjective Subjective Interval history: Mr. Marc is a 74 year old gentleman and well known patient of Dr. Herrera, per pt and h and p pt was admitted on observation, he has a hx of PAD, CAD, T2DM, BPH, R BKA 09/[address] Arellano, who presented with c/f constipation. he has not had BM in the past 5 days, he endorses nausea and 2x nonbloody emesis at home. he denies abdominal pain, fevers, chills shortness of breath, abdominal pain, and dysuria pt usually does not have a bm every day, typically every 3 days, however this constipation is extreme for him. Of note: pt was recently discharged 09/14/2024, for poorly healing R LE wound, he hand BKA with dr arellano, sugars were not well controlled on just insulin, Dr. Herrera was consulted to help manage blood sugars at that time, restarted januvia while inpatient for better glucose control. ED COURSE: Labs significant for: WBC 17.2, potassium 5.9, bicarb 28.9, BUN 44, creatinine 2.1 (baseline 1.1), EGFR 32 (baseline greater than 60), glucose 403. Imaging significant for: Abdominal x-ray showing large stool burden without obstruction throughout colon. Patient received 500 mL normal saline while in the ED. Patient received manual disimpaction while in the ED, soapsuds enema ordered. PMH: PAD, CAD, HTN, T2DM, BPH PSH: Open heart valve replacement, CABG, right BKA SH: Denies alcohol, tobacco, illicit drug use. Allergies:?NKDA Medications: Amlodipine, aspirin, atorvastatin, finasteride, insulin, Januvia, lisinopril, oxybutynin, Latia-Chata, Zoloft 09/30/2024: Pt admitted to observation by night team, MYRA elder obstructive pattern. s/p manual disimpaction in the ED 10/01/2024: Patient seen and examined at bedside. he is well appearing in no acute distress. BKA is wrapped in kerlix, pictures in physical chart dont show signs of infection, granulation tissue present, wound consult is placed. Blood sugar was high on presentation, given 10 units of lispro at 0200, then 9 units lispro (5 scheduled and 4 sliding scale) at 0800 with breakfast. abdomen is SNTND on exam. soap sudd enema given at 1000, he states that his daughter matheus will be by to visit him late today. Cr 2.1 from 1.1 at time of discharge earlier this month. Given MARTIN on CKD, recommend continuing IV fluids. Exam Vital Signs Temp Pulse Resp BP Pulse Ox O2 Del Method 96.9 F 107 H 17 129/73 93 L Room Air 10/01/24 08:00 10/01/24 08:37 10/01/24 08:00 10/01/24 08:37 10/01/24 08:00 10/01/24 08:00 Narrative Exam General: Alert, no acute distress. answers questions in bermudian and some turkish. sitting upright after eating breakfast Skin: Warm, dry, intact, no obvious rash.Gluteal cleft bed sore (followed by wound care) , L heel wound, Head: Normocephalic, atraumatic. Eye: Normal conjunctiva, Cardiovascular: Regular rate and rhythm, no murmur, Respiratory: Lungs are clear to auscultation, respirations unlabored, no crackles, no wheezing. Gastrointestinal: Soft, nontender, non-distended. No guarding or rebound tenderness. Extremities: No edema, no cyanosis, no clubbing. 2+ radial pulse bilaterally. s/p R BKA 8/[address] arellano, dressed (johnathan, photos of stump in paper chart, granulation tissue) Neuro: No focal deficits observed. Conversant, moving all extremities. No overt cerebellar signs/incoordination. Psychiatric: Cooperative, appropriate affect. Objective Labs 10/01/24 11:20 10/01/24 11:20 Labs: Laboratory Results - last 24 hr 09/30/24 10/01/24 21:41 01:41 WBC 17.2 H RBC 3.96 L Hgb 11.7 L Hct 36.2 L MCV 91 MCH 29.5 MCHC 32.3 RDW Std Deviation 60.6 H Plt Count 287 D Neut % (Auto) 79 Lymph % (Auto) 10 [place] % (Auto) 10 Eos % (Auto) 0 Baso % (Auto) 0 Neut # (Auto) 13.6 H Lymph # (Auto) 1.7 [place] # (Auto) 1.7 H Eos # (Auto) 0.0 Baso # (Auto) 0.1 Immature Gran # (Auto) 0.14 H Absolute Nucleated RBC 0.00 Immature Gran % 1 H Nucleated RBC % 0 Sodium 140 Potassium 5.9 H Chloride 97 L Carbon Dioxide 28.9 Anion Gap 14 BUN 44 H Creatinine 2.1 H Estim Creat Clear Calc 33.8 L eGFR 32 L BUN/Creatinine Ratio 21 H Glucose 403 H* Calculated Osmolality 307 H Calcium 10.1 Corrected Calcium 10.2 H Total Bilirubin 0.4 AST 11 ALT 16 Alkaline Phosphatase 139 H Total Protein 6.7 Albumin 3.9 Globulin 2.8 Albumin/Globulin Ratio 1.4 Ur Collection Type Clean Catch Urine Color Drk-[place] A Urine Clarity Turbid A Urine pH 6.0 Ur Specific [place] 1.031 Urine Protein 1+ A Urine Glucose (UA) Trace Urine Ketones Trace Urine Blood Negative Urine Nitrite Negative Urine Bilirubin 1+ A Urine Urobilinogen (Auto) 4.0 Ur Leukocyte Esterase Positive Urine RBC 1 Urine WBC 24 H Ur Squamous Epith Cells 0 Urine Bacteria Rare Hyaline Casts 1 Ur Culture Indicated? Yes Quality Measures Quality Measures VTE prophylaxis Advance care planning discussed with:: patient Assessment & Plan Assessment Current Active Medications: Generic Name Dose Route Start Last Admin Trade Name Freq PRN Reason Stop Dose Admin Acetaminophen 650 mg 10/01/24 01:45 Acetaminophen 325 Mg Tablet PO 10/31/24 01:44 Q6H PRN Fever >100.4 or pain 1-3 Amlodipine Besylate 10 mg 10/01/24 09:00 10/01/24 08:37 Amlodipine Besylate 5 Mg Tablet PO 10/31/24 08:59 10 mg QDAY ALEXIS Administration Aspirin 81 mg 10/01/24 09:00 10/01/24 08:36 Aspirin 81 Mg Chew PO 10/31/24 08:59 81 mg QDAY ALEXIS Administration Dextrose 25 ml 10/01/24 01:45 Dextrose 50%-Water Inj 50 Ml Syringe IV 10/31/24 01:44 Q15MIN PRN BG 50-70 responsive npo pt Dextrose 50 ml 10/01/24 01:45 Dextrose 50%-Water Inj 50 Ml Syringe IV 10/31/24 01:44 Q15MIN PRN BG <50 OR BG <70 & pt unresponsive Finasteride 5 mg 10/01/24 09:00 10/01/24 08:37 Finasteride 5 Mg Tablet PO 10/31/24 08:59 5 mg QDAY ALEXIS Administration Glucagon 1 mg 10/01/24 01:45 Glucagon Inj 1 Mg Vial IM Q15MIN PRN BG <70, and no IV access Heparin Sodium (Porcine) 5,000 unit 10/01/24 09:00 10/01/24 08:25 Heparin Sod Inj 5000 Unit/Ml Vial SC 10/15/24 08:59 5,000 unit Q12HR ALEXIS Administration Lactated Ringer's 1,000 mls @ 100 mls/hr 10/01/24 01:45 10/01/24 02:17 Lactated Ringers IV 10/01/24 21:44 100 mls/hr .Q10H ALEXIS Administration Insulin Degludec 25 unit 10/01/24 21:00 Insulin Degludec 5 Unit/0.05 Ml (Per 5 Units) SC 10/31/24 20:59 QPM ALEXIS Insulin Human Lispro 5 unit 10/01/24 07:30 10/01/24 08:24 Insulin Lispro (Admelog) 1 Unit/0.01 Ml Unit SC 10/31/24 07:29 5 unit AC ALEXIS Administration Insulin Human Lispro 0 unit 10/01/24 07:30 10/01/24 08:24 Insulin Lispro (Admelog) 1 Unit/0.01 Ml Unit SC 10/31/24 07:29 4 unit ACHS ALEXIS Administration Protocol Lactulose 30 gm 10/01/24 14:00 Lactulose Syrup 20 Gm/30 Ml Udc PO 10/31/24 13:59 TID [facility] Protocol Lisinopril 40 mg 10/01/24 09:00 10/01/24 08:36 Lisinopril 20 Mg Tablet PO 10/31/24 08:59 40 mg QDAY ALEXIS Administration Ondansetron HCl 4 mg 10/01/24 01:45 Ondansetron Inj 2 Mg/Ml Inj 2 Ml IVP 10/31/24 01:44 Q6H PRN NAUSEA OR VOMITING Protocol Tramadol HCl 50 mg 10/01/24 01:45 Tramadol Hcl 50 Mg Tablet PO 10/06/24 01:44 Q6HR PRN PAIN SCALE 4-10(Mod-Sev Plan 74 y/o M with PMHx significant for peripheral artery disease, coronary artery disease, hypertension, type 2 diabetes(a1c 8.3), BPH, right BKA (done 8/[address] arellano)presents with chief complaint constipation x 5 days and 1 episode of vomiting today, admitted for martin on suspected underlying CKD. #MARTIN on suspected CKD Patient presented with complaints constipation and 2x nonbillious, nonbloody of emesis, poor p.o. intake , last BM was 5 days ago. BUN 44, creatinine 2.1 from Cr at time of discharge 1.1, EGFR 32 from baseline greater than 60. UA is dark and concentrated, 1+ protein, Received 500 mL bolus normal saline in the ED. - cont IV fluids, monitor UOP, - strict i and o. - Monitor daily renal function - Avoid nephrotoxins - pending urine protein Cr - pending Urine lytes - pending PTH #electrolyte abnormalities #hyperkalemia #hypercalcemia, K 5.9 on admission, given insulin in the ED - pending repeat CMP, - pending PTH #Constipation Patient has constipation x 5 days. KUB with significant stool burden without obstruction in the colon. - s/p disimpaction performed in the ED. - soapsuds enema. - Lactulose tid #mild leukocytosis wbc 17, tachycardic to 100s, UA + leukesterase but otherwise bland no respiratory symptoms, afebrile COVID rapid vs influenza? Ucx pending consider cxr #insulin dependent Type 2 diabetes #hyperglycemia, 400 on admission on prior admission, pt had glucose difficult to control on just insulin, A1c 8.3% as of 09/05/2024. Glucose 403 in the ED. given 10 units lispro x 1 given. Home regimen: Takes insulin glargine 10 units every morning and 30 units every afternoon, plus lispro 5 units 3 times daily, januvia 100 mg qd - ISS step 2 - Carb consistent meals - Lispro 5 units 3 times daily AC - Long-acting 25 units every afternoon - recommend adding januvia 50 qd while in patient. #?tachycardia pt with HR in 100s, no ekg scanned for this admission yet. #HTN normotensive #BPH Noted to have nontender suprapubic mass on exam. - Resume home finasteride 5 mg daily - Bladder scan, not retaining #CAD #HTN #PAD Patient history as stated. - Resume home amlodipine 10 mg daily - Resume home aspirin 81 mg daily - Resume home lisinopril 40 mg daily #Right BKA Patient has right leg BKA, recent, surgical site clean dry and intact. s/p bka with dr arellano on 09/09/24, johnathan without wound dihissence, no pus drainage. dressed with kerlex, - Wound care #normocytic anemia iron studies from 08/2024 with low levels DVT prophylaxis: Heparin GI prophylaxis: None Diet: Cardiac, consistent carb Lines: Peripheral IV Code status: Full code Plan discussed with attending Dr. Sharon Villegas MD Internal Medicine PGY-1 Attending Provider Attestation/Addendum Patient seen and examined with resident physician Dr. Villegas. Note reviewed, agree with findings and recommendations. Patient admitted with weakness, MARTIN. Agree with IV fluids. Clinically looks rather dehydrated. Recently had a Right BKA for gangrene. Stump with johnathan. On antibiotics. Thank you James for allowing me to participate in the care of Mr. Marc
--- NOTE | 2024-10-01 09:36 | ESPR_ITS ---
<Statement entered by James Galindo MD - 10/04/24 15:13> I reviewed above note and agree with findings and plans. I have also personally examined the patient with medicine team and went over assessment and plan with medical team including hospitality internship and resident physician. <Statement entered by Hong De Paz MD - 10/01/24 17:14> Patient was examined and case was reviewed with team including attending physician. Note reviewed, I agree with most of its contents and agree with the patient's care as documented by Dr. Boyd Patient seen today at the bedside found awake, alert, orientedx3. No overnight events reported. Vitals and labs reviewed. Patient complaining of bladder issues bladder scan ordered. Patient with JULIO likely in the setting of presenting osteopenia currently on IV fluids will continue to monitor with a.m. labs. Case discussed with my attending Dr. Josie De Paz MD PGY-2 Disclaimer: Despite multiple revisions, due to the dictation software being used, the document bellow may not be free of grammatical errors including phonetic/typographic errors. However, this does not deter from our commitment to providing health care in the patient's best interest in mind. Documentation for date of: 10/01/24 Subjective Subjective Interval history: Patient was seen at bedside. Patient has no complaints at this time. Exam Vital Signs Temp Pulse Resp BP Pulse Ox O2 Del Method 96.9 F 107 H 17 129/73 93 L Room Air 10/01/24 08:00 10/01/24 08:37 10/01/24 08:00 10/01/24 08:37 10/01/24 08:00 10/01/24 08:00 Narrative Exam Physical Exam General: Awake and in no acute distress. Conversational and non-toxic appearing. HEENT: Normocephalic, atraumatic, mucous membranes moist. Heart: Regular rate and rhythm, no murmurs. Lungs: Clear to auscultation with no wheezing or crackles. Abdomen: Soft, nondistended, nontender. No guarding or rebound tenderness. Neurologic: Alert and oriented x3, no gross neurological deficit, and patient able to move all 4 extremities. Extremities: No edema. Right BKA. Skin: No rash or ecchymoses. Objective Labs 10/02/24 04:39 10/02/24 04:39 Labs: Laboratory Results - last 24 hr 09/30/24 10/01/24 21:41 01:41 WBC 17.2 H RBC 3.96 L Hgb 11.7 L Hct 36.2 L MCV 91 MCH 29.5 MCHC 32.3 RDW Std Deviation 60.6 H Plt Count 287 D Neut % (Auto) 79 Lymph % (Auto) 10 [place] % (Auto) 10 Eos % (Auto) 0 Baso % (Auto) 0 Neut # (Auto) 13.6 H Lymph # (Auto) 1.7 [place] # (Auto) 1.7 H Eos # (Auto) 0.0 Baso # (Auto) 0.1 Immature Gran # (Auto) 0.14 H Absolute Nucleated RBC 0.00 Immature Gran % 1 H Nucleated RBC % 0 Sodium 140 Potassium 5.9 H Chloride 97 L Carbon Dioxide 28.9 Anion Gap 14 BUN 44 H Creatinine 2.1 H Estim Creat Clear Calc 33.8 L eGFR 32 L BUN/Creatinine Ratio 21 H Glucose 403 H* Calculated Osmolality 307 H Calcium 10.1 Corrected Calcium 10.2 H Total Bilirubin 0.4 AST 11 ALT 16 Alkaline Phosphatase 139 H Total Protein 6.7 Albumin 3.9 Globulin 2.8 Albumin/Globulin Ratio 1.4 Ur Collection Type Clean Catch Urine Color Drk-[place] A Urine Clarity Turbid A Urine pH 6.0 Ur Specific [place] 1.031 Urine Protein 1+ A Urine Glucose (UA) Trace Urine Ketones Trace Urine Blood Negative Urine Nitrite Negative Urine Bilirubin 1+ A Urine Urobilinogen (Auto) 4.0 Ur Leukocyte Esterase Positive Urine RBC 1 Urine WBC 24 H Ur Squamous Epith Cells 0 Urine Bacteria Rare Hyaline Casts 1 Ur Culture Indicated? Yes Quality Measures Quality Measures VTE prophylaxis Advance care planning discussed with:: patient Assessment & Plan Assessment Current Active Medications: Generic Name Dose Route Start Last Admin Trade Name Freq PRN Reason Stop Dose Admin Acetaminophen 650 mg 10/01/24 01:45 Acetaminophen 325 Mg Tablet PO 10/31/24 01:44 Q6H PRN Fever >100.4 or pain 1-3 Amlodipine Besylate 10 mg 10/01/24 09:00 10/01/24 08:37 Amlodipine Besylate 5 Mg Tablet PO 10/31/24 08:59 10 mg QDAY ALEXIS Administration Aspirin 81 mg 10/01/24 09:00 10/01/24 08:36 Aspirin 81 Mg Chew PO 09/25/25 08:59 81 mg QDAY ALEXIS Administration Dextrose 25 ml 10/01/24 01:45 Dextrose 50%-Water Inj 50 Ml Syringe IV 10/31/24 01:44 Q15MIN PRN BG 50-70 responsive npo pt Dextrose 50 ml 10/01/24 01:45 Dextrose 50%-Water Inj 50 Ml Syringe IV 10/31/24 01:44 Q15MIN PRN BG <50 OR BG <70 & pt unresponsive Dextrose 25 ml 10/01/24 09:30 Dextrose 50%-Water Inj 50 Ml Syringe IVP 10/01/24 09:31 X1 ONE Finasteride 5 mg 10/01/24 09:00 10/01/24 08:37 Finasteride 5 Mg Tablet PO 10/31/24 08:59 5 mg QDAY ALEXIS Administration Glucagon 1 mg 10/01/24 01:45 Glucagon Inj 1 Mg Vial IM Q15MIN PRN BG <70, and no IV access Heparin Sodium (Porcine) 5,000 unit 10/01/24 09:00 10/01/24 08:25 Heparin Sod Inj 5000 Unit/Ml Vial SC 10/15/24 08:59 5,000 unit Q12HR ALEXIS Administration Lactated Ringer's 1,000 mls @ 100 mls/hr 10/01/24 01:45 10/01/24 02:17 Lactated Ringers IV 10/01/24 21:44 100 mls/hr .Q10H ALEXIS Administration Insulin Degludec 15 unit 10/01/24 21:00 Insulin Degludec 5 Unit/0.05 Ml (Per 5 Units) MS 10/31/24 20:59 QPM ALEXIS Insulin Human Lispro 5 unit 10/01/24 07:30 10/01/24 08:24 Insulin Lispro (Admelog) 1 Unit/0.01 Ml Unit SC 10/31/24 07:29 5 unit AC ALEXIS Administration Insulin Human Lispro 0 unit 10/01/24 07:30 10/01/24 08:24 Insulin Lispro (Admelog) 1 Unit/0.01 Ml Unit MS 10/31/24 07:29 4 unit ACHS ALEXIS Administration Protocol Insulin Human Regular 5 unit 10/01/24 09:30 Insulin Hum Regular 1 Unit/0.01 Ml (Per Unit) IV 10/01/24 09:31 X1 ONE Lactulose 30 gm 10/01/24 14:00 Lactulose Syrup 20 Gm/30 Ml Udc PO 10/31/24 13:59 TID ALEXIS Protocol Lisinopril 40 mg 10/01/24 09:00 10/01/24 08:36 Lisinopril 20 Mg Tablet PO 10/31/24 08:59 40 mg QDAY ALEXIS Administration Ondansetron HCl 4 mg 10/01/24 01:45 Ondansetron Inj 2 Mg/Ml Inj 2 Ml IVP 10/31/24 01:44 Q6H PRN NAUSEA OR VOMITING Protocol Tramadol HCl 50 mg 10/01/24 01:45 Tramadol Hcl 50 Mg Tablet PO 10/06/24 01:44 Q6HR PRN PAIN SCALE 4-10(Mod-Sev Plan 74 year-old male with extensive vascular history (DM, HTN, CAD, TIA, PVD), CKD, and right BKA presenting with nausea, vomiting, and no bowel movement for 5 days, found to have large stool burden on abdominal x-ray, admitted for acute renal injury. #Acute kidney injury, likely prerenal #CKD III Patient presented with complaints of no bowel movement for 5 days, 2x nonbillious and nonbloody emesis, poor PO intake. BUN 44, creatinine 2.1 (baseline around 1.1), EGFR 32 from baseline greater than 60. UA is dark and concentrated, 1+ protein. Received 500 mL bolus normal saline in the ED. Plan: - Continue IV fluids. - Monitor urinary output. - Strict i and o. - Monitor daily renal function. - Avoid nephrotoxins. - Consulted nephrology - appreciate recs. - Pending labs: urine protein Cr, urine lytes, PTH. #Hyperglycemia (403 on admission) #Type 2 diabetes Hemoglobin A1c 8.3% as of 09/05/2024. In ED, given 10 units lispro x 1. Home regimen: Takes insulin glargine 10 units every morning and 30 units every afternoon, plus lispro 5 units 3 times daily, januvia 100 mg daily. Plan: - ISS step 2. - Carb consistent meals. - Lispro 5 units 3 times daily AC. - Long-acting 25 units every afternoon. - Started Januvia 50 mg QD while inpatient per nephrology recs. #Leukocytosis WBC 17.2 on admission --> 20.7. UA: leukocyte esterase positive, WBC 24. Patient is afebrile. No respiratory symptoms at this time. Plan: - Pending urine culture. #Constipation Constipation x 5 days. Abdominal x-ray showed significant stool burden without obstruction in the colon. In ED, disimpaction performed and soapsuds enema. Plan: - Warm water enema. - Lactulose 30mg 3x daily. #Electrolyte abnormalities #Hyperkalemia #Hypercalcemia K 5.9 on admission, given insulin in ED. Corrected calcium on admission was 10.2. Kayexalate 30 gram x1 given. Plan: - Check CMP daily. - Pending PTH. #Benign prostate hyperplasia Noted to have nontender suprapubic mass on exam. Patient reports chronic urinary hesitancy due to BPH. Plan: - Resume home finasteride 5 mg daily. - Bladder scan, not retaining. #Coronary artery disease #Hypertension #Peripheral artery disease Plan: - Resume home amlodipine 10 mg daily. - Resume home aspirin 81 mg daily. - Resume home lisinopril 40 mg daily. #Right BKA S/p right BKA with Dr. Graff on 09/09/2024. Plan: - Wound care DVT prophylaxis: Heparin GI prophylaxis: None Diet: Cardiac, consistent carb Lines: Peripheral IV Code status: Full code Patient plan of care was discussed with the senior resident, Dr. Gabriel De Paz, and attending physician, . Enma Boyd, DO PGY-1
--- NOTE | 2024-10-01 09:55 | PD.NEPHCONS ---
History of Present Illness Data of Consult Consult date: 10/01/24 Requesting Physician: James Galindo MD Primary Care Provider: Yonny Herrera MD Consult Narrative Reason for consult: JULIO on CKD History of present illness: Please see progress note from today for consultation note cc:: cc: James Galindo MD Meds Home Medications and Allergies Home Medications ?Medication ?Instructions ?Recorded ?Confirmed ?Type aspirin 81 mg tablet,delayed 81 mg PO QDAY 11/17/17 10/01/24 History release (Bert Low Dose Aspirin) oxybutynin chloride 10 mg 10 mg PO HS 09/02/24 10/01/24 History tablet,extended release 24 hr sertraline 50 mg tablet 50 mg PO DAILY 09/02/24 10/01/24 History ascorbic acid (vitamin C) 500 mg 500 mg PO BID 10/01/24 10/01/24 History tablet (C-500) ferrous sulfate 325 mg (65 mg 325 mg PO QDAY 10/01/24 10/01/24 History iron) tablet (FeroSul) Allergies Allergy/AdvReac Type Severity Reaction Status Date / Time No Known Allergies Allergy Verified 09/09/24 17:55 Exam Vital Signs Temp Pulse Resp BP Pulse Ox O2 Del Method 36.4 C 100 18 114/56 L 94 L Room Air 10/01/24 20:00 10/01/24 20:00 10/01/24 20:00 10/01/24 20:00 10/01/24 20:00 10/01/24 20:00 Results Labs 10/01/24 11:20 10/01/24 11:20 Labs: Short CBC 09/30/24 10/01/24 Range/Units 21:41 11:20 WBC 17.2 H 20.7 H (3.8-10.6) Thou/mm3 Hgb 11.7 L 10.7 L (13.5-16.0) g/dL Hct 36.2 L 33.1 L (41.0-53.0) % Plt Count 287 D 277 (140-440) Thou/mm3 BMP 09/30/24 10/01/24 21:41 11:20 Sodium 140 141 Potassium 5.9 H 3.6 D Chloride 97 L 100 Carbon Dioxide 28.9 27.4 BUN 44 H 39 H Creatinine 2.1 H 1.9 H Glucose 403 H* 152 H D Calcium 10.1 9.4 Cardiac Enzymes 10/01/24 Range/Units 15:40 Total Creatine Kinase < 15 L (34-171) U/L Liver Function 09/30/24 10/01/24 Range/Units 21:41 11:20 Total Bilirubin 0.4 (0.3-1.2) mg/dL AST 11 (0-34) U/L ALT 16 (10-49) U/L Alkaline Phosphatase 139 H (46-116) U/L Albumin 3.9 3.6 (3.4-4.8) gm/dL Urine 10/01/24 Range/Units 01:41 Urine Color Drk-[place] A (Lt Yel-Yel) Urine Clarity Turbid A (Clear/Hazy) Urine pH 6.0 (5.0-7.0) Ur Specific [place] 1.031 (1.001-1.035) Urine Protein 1+ A (Neg - Trace) Urine Glucose (UA) Trace (Negative)
[2024-10-01] MEDS: SOD POLYSTYRENE SULFON SUSP 15 GM/60 ML BTL 30 GM PO (10:05)
--- NOTE | 2024-10-01 10:09 | PC.NURSE ---
DR. WATERS MADE AWARE PT IS HAVING DIFFICULTY URINATING, RED BLOOD IN BRIEF WITH NOTED URINE.
--- NOTE | 2024-10-01 11:09 | PC.NURSE ---
PHARMACY MADE AWARE PT'S LAB DRAW THIS MORNING WAS MISSED. SPOKE TO CASSY.
--- NOTE | 2024-10-01 11:33 | PC.NURSE ---
ADELA FROM [facility] WAS UPDATED.
--- NOTE | 2024-10-01 11:34 | PC.NURSE ---
MEDICAL TEAM ROUNDING
[2024-10-01 11:47] LABS: Basophils # (Auto) 0.1 Thou/mm3 (0.0-0.2); Basophils % (Auto) 0 % (0-2.5); Eosinophils # (Auto) 0.1 Thou/mm3 (0.0-0.5); Eosinophils % (Auto) 0 % (0-10); Hematocrit 33.1 % (41.0-53.0); Hemoglobin 10.7 g/dL (13.5-16.0); Immature Granulocytes Auto 0.14 Thou/mm3 (0.00-0.00); Lymphocytes # (Auto) 2.6 Thou/mm3 (1.0-4.8); Lymphocytes % (Auto) 12 % (10-50); Mean Corpuscular HGB Conc 32.3 g/dl (31.0-37.0); Mean Corpuscular Hemoglobin 29.6 pg (25.0-35.0); Mean Corpuscular Volume 92 fL (80-100); Monocytes # (Auto) 2.2 Thou/mm3 (0.0-0.8); Monocytes % (Auto) 11 % (0-12); Neutrophils # (Auto) 15.6 Thou/mm3 (1.8-7.7); Neutrophils % (Auto) 75 % (37-80); Nucleated Red Blood Cell # 0.00 Thou/mm3 (0.00-0.00); Nucleated Red Blood Cell % 0 /100 WBC (0); Platelet Count 277 Thou/mm3 (140-440); RDW Standard Deviation 60.9 fL (35.1-43.9); Red Blood Count 3.61 Miln/mm3 (4.50-5.90); White Blood Count 20.7 Thou/mm3 (3.8-10.6)
--- NOTE | 2024-10-01 11:47 | PC.SS ---
Patient is a 74 year old male presenting to the hospital for constipation. CLOTH EXAMINER MACHINE met with patient and patient daughter at bedside. Patient?s daughter stated that patient was being d/c from [facility] but due to patient not having BM they sent him to [facility]. Patients daughter stated that his PCP is Dr. Herrera and last appointment was supposed to be today. His pharmacy of choice is [facility]. Patient?s daughter stated that [facility] did not follow up with DME and patient will need claudine, wheelchair, and 3 in once commode. Patient?s alternate decision maker is Renea Franklin PH: [phone]. Once medically clear patient would like to return home and daughter will provide transportation. PCP: DR. HERRERA D/C: HOME Decision maker: Renea Franklin PH: [phone]
[2024-10-01 12:07] LABS: Albumin, Serum 3.6 gm/dL (3.4-4.8); Anion Gap 14 (7-16); BUN/Creatinine Ratio 21 Ratio (12-20); Blood Urea Nitrogen 39 mg/dL (9-23); Calcium 9.4 mg/dL (8.3-10.6); Carbon Dioxide 27.4 mMol/L (20.0-31.0); Chloride 100 mMol/L (98-107); Creatinine (Component) 1.9 mg/dL (0.6-1.3); Estimated Creatinine Clearance 33.0 mL/min (>60); Glucose 152 mg/dL (74-106); Magnesium 1.8 mg/dL (1.6-2.6); Osmolality,Calculated 293 (275-295); Phosphorous 4.9 mg/dL (2.4-5.1); Potassium 3.6 mMol/L (3.4-5.1); Sodium 141 mMol/L (136-145); eGFR 37 See Note
[2024-10-01 13:00] LABS: Parathyroid Hormone Intact 119.1 pg/ml (18.5-88.0)
[2024-10-01] MEDS: LACTULOSE SYRUP 20 GM/30 ML UDC 30 GM PO ×2 (13:34→21:27)
--- NOTE | 2024-10-01 15:40 | PC.SS ---
rounding note: pending BM, nephrology rec.
[2024-10-01 16:12] LABS: Creatine Kinase < 15 U/L (34-171)
--- NOTE | 2024-10-01 18:04 | EKG_ITS ---
[facility] (Formerly [facility]) Test Date: 2024-10-01 Pat Name: SPEEDY GALLEGO [facility] Gender[facility] Male [employer]ator: [id number] : 1950 Requested By: Ximena Hutchinson Order Number: [id number] Reading MD: Ximena Hutchinson Measurements Intervals [place] Rate: 104 P: -39 MS: 109 QRS: -44 QRSD: 85 T: 89 QT: 335 QTc: 442 Interpretive Statements SINUS TACHYCARDIA WITH SHORT MS INTERVAL WITH OCCASIONAL SUPRAVENTRICULAR PREMATURE COMPLEXES MARKED LEFT AXIS DEVIATION NONSPECIFIC T-WAVE ABNORMALITY Compared to ECG 09/02/2024 11:42:10 Short MS interval now present Atrial fibrillation no longer present Ventricular premature complex(es) no longer present Aberrant conduction of supraventricular beat(s) no longer present T-wave abnormality still present /store/S0/[id number].pdf
--- NOTE | 2024-10-01 18:40 | PC.NURSE ---
1758: DR. JONES MADE AWARE OF WBC TRENDING UP FROM 17.2-20.7, HR 105, POOR APPETITE, AND RECTAL TEMP 97.5. MD TO PUT IN ORDERS. 1829: DR. JONES AT BEDSIDE TO ASSESS PT, PT ALERT TO SELF AND PLACE, DENIES CHILLS, UTI SYMPTOMS, CHEST PAIN, AND STATES I FEEL GOOD.
[2024-10-01] MEDS: cefTRIAXone/D5w 1gm IV premix 1 GM/50 ML BAG IV (19:21)
[2024-10-01] MEDS: BALSAM PERU/CASTOR OIL (Venelex) 60 GM TUBE TOP (20:10)
[2024-10-01] MEDS: INSULIN DEGLUDEC 5 UNIT/0.05 ML (PER 5 UNITS) 15 UNIT SC (20:11)
[2024-10-01] MEDS: TAMSULOSIN HCL 0.4 MG CAPSULE PO (20:11)
[2024-10-02] VITALS (7 sets, daily range): BP systolic 99–132; BP diastolic 58–74; PULSE 91–101; RESP 16–18; TEMP 36.2–37.1; O2SAT 92–96
[2024-10-02] MEDS: LACTULOSE SYRUP 20 GM/30 ML UDC 30 GM PO ×3 (05:16→21:36)
--- NOTE | 2024-10-02 05:37 | EKG_ITS ---
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
[2024-10-02 06:06] LABS: Basophils # (Auto) 0.1 Thou/mm3 (0.0-0.2); Basophils % (Auto) 0 % (0-2.5); Eosinophils # (Auto) 0.1 Thou/mm3 (0.0-0.5); Eosinophils % (Auto) 0 % (0-10); Hematocrit 29.5 % (41.0-53.0); Hemoglobin 9.6 g/dL (13.5-16.0); Immature Granulocytes Auto 0.09 Thou/mm3 (0.00-0.00); Lymphocytes # (Auto) 2.7 Thou/mm3 (1.0-4.8); Lymphocytes % (Auto) 16 % (10-50); Mean Corpuscular HGB Conc 32.5 g/dl (31.0-37.0); Mean Corpuscular Hemoglobin 30.5 pg (25.0-35.0); Mean Corpuscular Volume 94 fL (80-100); Monocytes # (Auto) 1.6 Thou/mm3 (0.0-0.8); Monocytes % (Auto) 10 % (0-12); Neutrophils # (Auto) 11.8 Thou/mm3 (1.8-7.7); Neutrophils % (Auto) 73 % (37-80); Nucleated Red Blood Cell # 0.00 Thou/mm3 (0.00-0.00); Nucleated Red Blood Cell % 0 /100 WBC (0); Platelet Count 211 Thou/mm3 (140-440); RDW Standard Deviation 61.8 fL (35.1-43.9); Red Blood Count 3.15 Miln/mm3 (4.50-5.90); White Blood Count 16.3 Thou/mm3 (3.8-10.6)
--- NOTE | 2024-10-02 06:25 | PC.NURSE ---
dr de la rosa at bedside, pt complaint of chest pain 07/16 describes it as pressure. ekg ordered and taken. per dr, order stat troponin.
[2024-10-02 06:35] LABS: Anion Gap 11 (7-16); BUN/Creatinine Ratio 13 Ratio (12-20); Blood Urea Nitrogen 22 mg/dL (9-23); Calcium 8.4 mg/dL (8.3-10.6); Carbon Dioxide 29.4 mMol/L (20.0-31.0); Chloride 103 mMol/L (98-107); Creatinine (Component) 1.7 mg/dL (0.6-1.3); Estimated Creatinine Clearance 36.9 mL/min (>60); Glucose 95 mg/dL (74-106); Magnesium 1.7 mg/dL (1.6-2.6); Osmolality,Calculated 288 (275-295); Phosphorous 3.9 mg/dL (2.4-5.1); Potassium 3.8 mMol/L (3.4-5.1); Sodium 143 mMol/L (136-145); eGFR 42 See Note
[2024-10-02 08:36] LABS: Troponin I < 0.020 ng/mL (0.0-0.045)
--- NOTE | 2024-10-02 09:24 | ESPR_ITS ---
<Statement entered by James Galindo MD - 10/04/24 15:15> I reviewed above note and agree with findings and plans. I have also personally examined the patient with medicine team and went over assessment and plan with medical team including internet marketing coordinator and resident physician. <Statement entered by Hong De Paz MD - 10/03/24 15:06> Patient was examined and case was reviewed with team including attending physician. Note reviewed, I agree with most of its contents and agree with the patient's care as documented by Dr. Boyd Patient seen today at the bedside found awake, alert, orientedx3. Vitals and labs reviewed. Overnight patient complained of chest pressure sensation. EKG was ordered and found to have no acute ST segment elevations. Troponins were also ordered found to be negative x 2. Will continue with IV antibiotics at this time. Case discussed with my attending Dr. Josie De Paz MD PGY-2 Disclaimer: Despite multiple revisions, due to the dictation software being used, the document bellow may not be free of grammatical errors including phonetic/typographic errors. However, this does not deter from our commitment to providing health care in the patient's best interest in mind. Documentation for date of: 10/02/24 Subjective Subjective Interval history: Patient was evaluated at the bedside this morning. Yesterday morning he denied any urinary symptoms, however later in the day, nursing staff reported patient having urinary discomfort, hematuria, and increased lethargy. Urinalysis was positive for leukocyte esterase and white blood cells. Ceftriaxone was initiated for complicated urinary tract infection. Overnight, the patient reported midsternal chest pressure, described as occurring primarily with deep inspiration. An EKG and troponin were obtained and were negative. Troponin levels will continue to be trended. The patient had three bowel movements yesterday. Exam Vital Signs Temp Pulse Resp BP Pulse Ox O2 Del Method 97.1 F 94 18 118/61 95 Room Air 10/02/24 08:00 10/02/24 08:00 10/02/24 08:00 10/02/24 08:00 10/02/24 08:00 10/02/24 08:00 Narrative Exam Physical Exam General: Awake and in no acute distress. Conversational and non-toxic appearing. HEENT: Normocephalic, atraumatic, mucous membranes moist. Heart: Regular rate and rhythm, no murmurs. Lungs: Clear to auscultation with no wheezing or crackles. Abdomen: Soft, nondistended, nontender. No guarding or rebound tenderness. Neurologic: Alert and oriented x3, no gross neurological deficit, and patient able to move all 4 extremities. Extremities: No edema. Right BKA - not erythematous, no swelling, and no drainage. Skin: No rash or ecchymoses. MSK: no pain with palpation of sternum. Objective Labs 10/02/24 04:39 10/02/24 04:39 Labs: Laboratory Results - last 24 hr 10/01/24 10/01/24 10/02/24 11:20 15:40 04:39 WBC 20.7 H 16.3 H RBC 3.61 L 3.15 L Hgb 10.7 L 9.6 L Hct 33.1 L 29.5 L MCV 92 94 MCH 29.6 30.5 MCHC 32.3 32.5 RDW Std Deviation 60.9 H 61.8 H Plt Count 277 211 D Neut % (Auto) 75 73 Lymph % (Auto) 12 16 [place] % (Auto) 11 10 Eos % (Auto) 0 0 Baso % (Auto) 0 0 Neut # (Auto) 15.6 H 11.8 H Lymph # (Auto) 2.6 2.7 [place] # (Auto) 2.2 H 1.6 H Eos # (Auto) 0.1 0.1 Baso # (Auto) 0.1 0.1 Immature Gran # (Auto) 0.14 H 0.09 H Absolute Nucleated RBC 0.00 0.00 Immature Gran % 1 H 1 H Nucleated RBC % 0 0 Sodium 141 143 Potassium 3.6 D 3.8 Chloride 100 103 Carbon Dioxide 27.4 29.4 Anion Gap 14 11 BUN 39 H 22 Creatinine 1.9 H 1.7 H Estim Creat Clear Calc 33.0 L 36.9 L eGFR 37 L 42 L BUN/Creatinine Ratio 21 H 13 Glucose 152 H D 95 D Calculated Osmolality 293 288 Calcium 9.4 8.4 Phosphorus 4.9 3.9 Magnesium 1.8 1.7 Total Creatine Kinase < 15 L Troponin I Albumin 3.6 PTH Intact 119.1 H 10/02/24 07:42 WBC RBC Hgb Hct MCV MCH MCHC RDW Std Deviation Plt Count Neut % (Auto) Lymph % (Auto) [place] % (Auto) Eos % (Auto) Baso % (Auto) Neut # (Auto) Lymph # (Auto) [place] # (Auto) Eos # (Auto) Baso # (Auto) Immature Gran # (Auto) Absolute Nucleated RBC Immature Gran % Nucleated RBC % Sodium Potassium Chloride Carbon Dioxide Anion Gap BUN Creatinine Estim Creat Clear Calc eGFR BUN/Creatinine Ratio Glucose Calculated Osmolality Calcium Phosphorus Magnesium Total Creatine Kinase Troponin I < 0.020 Albumin PTH Intact Quality Measures Quality Measures VTE prophylaxis Advance care planning discussed with:: patient Assessment & Plan Assessment Current Active Medications: Generic Name Dose Route Start Last Admin Trade Name Freq PRN Reason Stop Dose Admin Acetaminophen 650 mg 10/01/24 01:45 Acetaminophen 325 Mg Tablet PO 10/31/24 01:44 Q6H PRN Fever >100.4 or pain 1-3 Amlodipine Besylate 10 mg 10/01/24 09:00 10/01/24 08:37 Amlodipine Besylate 5 Mg Tablet PO 10/31/24 08:59 10 mg QDAY ALEXIS Administration Aspirin 81 mg 10/01/24 09:00 10/01/24 08:36 Aspirin 81 Mg Chew PO 10/31/24 08:59 81 mg QDAY ALEXIS Administration Balsam [place] Oil 0 gm 10/01/24 21:00 10/01/24 20:10 Balsam [place] Oil (Venelex) 60 Gm Tube TOP 10/31/24 20:59 1 applicatio BID ALEXIS Administration Dextrose 25 ml 10/01/24 01:45 Dextrose 50%-Water Inj 50 Ml Syringe IV 10/31/24 01:44 Q15MIN PRN BG 50-70 responsive npo pt Dextrose 50 ml 10/01/24 01:45 Dextrose 50%-Water Inj 50 Ml Syringe IV 10/31/24 01:44 Q15MIN PRN BG <50 OR BG <70 & pt unresponsive Finasteride 5 mg 10/01/24 09:00 10/01/24 08:37 Finasteride 5 Mg Tablet PO 10/31/24 08:59 5 mg QDAY ALEXIS Administration Glucagon 1 mg 10/01/24 01:45 Glucagon Inj 1 Mg Vial IM Q15MIN PRN BG <70, and no IV access Heparin Sodium (Porcine) 5,000 unit 10/01/24 09:00 10/01/24 20:10 Heparin Sod Inj 5000 Unit/Ml Vial SC 10/15/24 08:59 5,000 unit Q12HR ALEXIS Administration Ceftriaxone Sodium/Dextrose 1 gm in 50 mls @ 100 mls/hr 10/01/24 18:13 10/01/24 19:51 Rocephin/D5w 1gm Iv Premix IV 10/08/24 18:12 Infused QDAY ALEXIS Infusion Insulin Degludec 15 unit 10/01/24 21:00 10/01/24 20:11 Insulin Degludec 5 Unit/0.05 Ml (Per 5 Units) SC 10/31/24 20:59 15 unit QPM ALEXIS Administration Insulin Human Lispro 5 unit 10/01/24 07:30 10/01/24 17:23 Insulin Lispro (Admelog) 1 Unit/0.01 Ml Unit SC 10/31/24 07:29 5 unit AC ALEXIS Administration Insulin Human Lispro 0 unit 10/01/24 07:30 10/01/24 20:11 Insulin Lispro (Admelog) 1 Unit/0.01 Ml Unit SC 10/31/24 07:29 2 unit ACHS ALEXIS Administration Protocol Lactulose 30 gm 10/01/24 14:00 10/02/24 05:16 Lactulose Syrup 20 Gm/30 Ml Udc PO 10/31/24 13:59 30 gm TID ALEXIS Administration Protocol Lisinopril 40 mg 10/01/24 09:00 10/01/24 08:36 Lisinopril 20 Mg Tablet PO 10/31/24 08:59 40 mg QDAY ALEXIS Administration Ondansetron HCl 4 mg 10/01/24 01:45 Ondansetron Inj 2 Mg/Ml Inj 2 Ml IVP 10/31/24 01:44 Q6H PRN NAUSEA OR VOMITING Protocol Sertraline HCl 50 mg 10/02/24 09:00 Sertraline Hcl 25 Mg Tablet PO 11/01/24 08:59 DAILY ALEXIS Sitagliptin Phosphate 50 mg 10/02/24 09:00 Sitagliptin Phosphate 50 Mg Tablet PO 11/01/24 08:59 QDAY ALEXIS Tamsulosin HCl 0.4 mg 10/01/24 21:00 10/01/24 20:11 Tamsulosin Hcl 0.4 Mg Capsule PO 10/31/24 20:59 0.4 mg HS ALEXIS Administration Tramadol HCl 50 mg 10/01/24 01:45 Tramadol Hcl 50 Mg Tablet PO 10/06/24 01:44 Q6HR PRN PAIN SCALE 4-10(Mod-Sev Plan 74 year-old male with extensive vascular history (DM, HTN, CAD, TIA, PVD), CKD, and right BKA presenting with nausea, vomiting, and no bowel movement for 5 days, found to have large stool burden on abdominal x-ray, admitted for acute renal injury, now being treated for complicated UTI. #Acute kidney injury, likely prerenal (improving) #CKD III Patient presented with complaints of no bowel movement for 5 days, 2x nonbillious and nonbloody emesis, poor PO intake. BUN 44, creatinine 2.1 (baseline around 1.1), eGFR 32 from baseline greater than 60. UA is dark and concentrated, 1+ protein. Received 500 mL bolus normal saline in the ED. Plan: - Continue IV fluids. - Monitor urinary output. - Strict i and o. - Monitor daily renal function. - Avoid nephrotoxins. - Consulted nephrology - appreciate recs. #Chest pain/pressure Patient reports chest pain/pressure that occurs mid chest. Worse with deep inspiration. EKG (10/02): sinus tachycardia. First two troponins were negative. Plan: - Continue to trend troponin Q6H. #Complicated Urinary tract infection UA: positive for leukocyte esterase and WBCs. Plan: - Started IV Rocephin 1gram daily. - Pending urine culture. - Adjust antibiotics based on culture and sensitivity results. - Monitor for clinical improvement and for any signs of further sepsis or organ dysfunction. #Hyperglycemia (403 on admission) #Type 2 diabetes Hemoglobin A1c 8.3% as of 09/05/2024. In ED, given 10 units lispro x 1. Home regimen: Takes insulin glargine 10 units every morning and 30 units every afternoon, plus lispro 5 units 3 times daily, januvia 100 mg daily. Plan: - ISS step 2. - Carb consistent meals. - Lispro 5 units 3 times daily AC. - Long-acting 25 units every afternoon. - Continue Januvia 50 mg QD while inpatient per nephrology recs. #Leukocytosis (downtreading) WBC 17.2 on admission --> 20.7. UA: leukocyte esterase positive, WBC 24. Patient is afebrile. No respiratory symptoms at this time. Plan: - Pending urine culture. #Constipation (resolved) Constipation x 5 days. Abdominal x-ray showed significant stool burden without obstruction in the colon. In ED, disimpaction performed and soapsuds enema. Plan: - Continue lactulose 30mg 3x daily. #Electrolyte abnormalities #Hyperkalemia (resolved) #Hypercalcemia K 5.9 on admission, given insulin in ED. Corrected calcium on admission was 10.2. Kayexalate 30 gram x1 given. PTH 119.1. Plan: - Check CMP daily. - Nephrology ordered PTH - appreciate recs. #Benign prostate hyperplasia Noted to have nontender suprapubic mass on exam. Patient reports chronic urinary hesitancy due to BPH. Plan: - Resume home finasteride 5 mg daily. - Bladder scan, not retaining. #Coronary artery disease #Hypertension #Peripheral artery disease Plan: - Resume home amlodipine 10 mg daily. - Resume home aspirin 81 mg daily. - Resume home lisinopril 40 mg daily. #Right BKA S/p right BKA with Dr. Graff on 09/09/2024. Plan: - Wound care #Normocytic anemia Patient's baseline hemoglobin is around 8-9. iron studies from 08/2024 with low levels Health Maintenance DVT prophylaxis: Heparin GI prophylaxis: None Diet: Cardiac, consistent carb Lines: Peripheral IV Code status: Full code Patient plan of care was discussed with the senior resident, Dr. Gabriel De Paz, and attending physician, . Enma Boyd, DO PGY-1
[2024-10-02] MEDS: FINASTERIDE 5 MG TABLET PO (09:40)
[2024-10-02] MEDS: SERTRALINE HCL 25 MG TABLET 50 MG PO (09:41)
[2024-10-02] MEDS: ASPIRIN 81 MG CHEW PO (09:42)
[2024-10-02] MEDS: cefTRIAXone/D5w 1gm IV premix 1 GM/50 ML BAG IV (09:42)
[2024-10-02] MEDS: BALSAM PERU/CASTOR OIL (Venelex) 60 GM TUBE TOP ×2 (09:42→20:21)
[2024-10-02] MEDS: HEPARIN SOD INJ 5000 UNIT/ML VIAL SC ×2 (09:42→20:22)
--- NOTE | 2024-10-02 10:24 | ESPR_ITS ---
Documentation for date of: 10/02/24 Subjective Subjective Interval history: Interval history: Mr. Marc is a 74 year old gentleman and well known patient of Dr. Herrera, per pt and h and p pt was admitted on observation, he has a hx of PAD, CAD, T2DM, BPH, R BKA 09/[address] Arellano, who presented with c/f constipation. he has not had BM in the past 5 days, he endorses nausea and 2x nonbloody emesis at home. he denies abdominal pain, fevers, chills shortness of breath, abdominal pain, and dysuria pt usually does not have a bm every day, typically every 3 days, however this constipation is extreme for him. Of note: pt was recently discharged 09/14/2024, for poorly healing R LE wound, he hand BKA with dr arellano, sugars were not well controlled on just insulin, Dr. Herrera was consulted to help manage blood sugars at that time, restarted januvia while inpatient for better glucose control. ED COURSE: Labs significant for: WBC 17.2, potassium 5.9, bicarb 28.9, BUN 44, creatinine 2.1 (baseline 1.1), EGFR 32 (baseline greater than 60), glucose 403. Imaging significant for: Abdominal x-ray showing large stool burden without obstruction throughout colon. Patient received 500 mL normal saline while in the ED. Patient received manual disimpaction while in the ED, soapsuds enema ordered. PMH: PAD, CAD, HTN, T2DM, BPH PSH: Open heart valve replacement, CABG, right BKA SH: Denies alcohol, tobacco, illicit drug use. Allergies:?NKDA Medications: Amlodipine, aspirin, atorvastatin, finasteride, insulin, Januvia, lisinopril, oxybutynin, Latia-Chata, Zoloft 09/30/2024: Pt admitted to observation by night team, MYRA wo obstructive pattern. s/p manual disimpaction in the ED 10/01/2024: Patient seen and examined at bedside. he is well appearing in no acute distress. BKA is wrapped in kerlix, pictures in physical chart dont show signs of infection, granulation tissue present, wound consult is placed. Blood sugar was high on presentation, given 10 units of lispro at 0200, then 9 units lispro (5 scheduled and 4 sliding scale) at 0800 with breakfast. abdomen is SNTND on exam. soap sudd enema given at 1000, he states that his daughter matheus will be by to visit him late today. Cr 2.1 from 1.1 at time of discharge earlier this month. Given MARTIN on CKD, recommend continuing IV fluids. 10/02/2024 johnathan were removed from the right BKA stump. Labs and medications reviewed. Creatinine started to improve. Blood sugars are better. Patient currently seen in medical floor. Resting comfortably. Review of Systems Review of Systems Narrative Review of Systems: CONSTITUTIONAL: Patient denies any fever, chills. HEENT: Denies any visual disturbances or hearing problems. CARDIOVASCULAR: Patient denies any chest pain, shortness of breath, swelling in the lower extremities. PULMONARY: Patient denies any shortness of breath, cough. GASTROINTESTINAL: Patient denies any abdominal pain, constipation, nausea, vomiting, diarrhea. GENITOURINARY: Patient denies any urinary symptoms of burning or frequency or hematuria, denies any form in the urine. SKIN: Denies any rash. MUSCULOSKELETAL: Status post right BKA NEUROLOGICAL: Denies any neurological problems of strokes, seizures or confusion. Denies any memory problems. PSYCHIATRIC: Denies any depression or anxiety. LYMPHATICS : No lymphadenopathy Exam Vital Signs Temp Pulse Resp BP Pulse Ox O2 Del Method 36.2 C 92 18 119/64 95 Room Air 10/02/24 08:00 10/02/24 09:41 10/02/24 08:00 10/02/24 09:41 10/02/24 08:00 10/02/24 08:00 Narrative Exam GENERAL APPEARANCE: Patient seems to be comfortable, adequately hydrated and nourished. HEENT: EOMI, PERRLA NECK: Neck supple, no JVD or bruit CARDIOVASCULAR: Heart regular, no murmurs LUNGS/CHEST: Chest clear to auscultation. No rales, rhonchi, wheezing ABDOMEN: Soft, nontender, nondistended. No masses. Normal bowel sounds. EXTREMITIES: No edema, clubbing or cyanosis. SKIN: Skin exam normal without any rashes MUSCULOSKELETAL: Status post right BKA LYMPHATICS: No lymphadenopathy noted NEUROLOGICAL : No neurological deficits Objective Labs 10/02/24 04:39 10/02/24 04:39 Labs: Laboratory Results - last 24 hr 10/01/24 10/01/24 10/02/24 11:20 15:40 04:39 WBC 20.7 H 16.3 H RBC 3.61 L 3.15 L Hgb 10.7 L 9.6 L Hct 33.1 L 29.5 L MCV 92 94 MCH 29.6 30.5 MCHC 32.3 32.5 RDW Std Deviation 60.9 H 61.8 H Plt Count 277 211 D Neut % (Auto) 75 73 Lymph % (Auto) 12 16 [place] % (Auto) 11 10 Eos % (Auto) 0 0 Baso % (Auto) 0 0 Neut # (Auto) 15.6 H 11.8 H Lymph # (Auto) 2.6 2.7 [place] # (Auto) 2.2 H 1.6 H Eos # (Auto) 0.1 0.1 Baso # (Auto) 0.1 0.1 Immature Gran # (Auto) 0.14 H 0.09 H Absolute Nucleated RBC 0.00 0.00 Immature Gran % 1 H 1 H Nucleated RBC % 0 0 Sodium 141 143 Potassium 3.6 D 3.8 Chloride 100 103 Carbon Dioxide 27.4 29.4 Anion Gap 14 11 BUN 39 H 22 Creatinine 1.9 H 1.7 H Estim Creat Clear Calc 33.0 L 36.9 L eGFR 37 L 42 L BUN/Creatinine Ratio 21 H 13 Glucose 152 H D 95 D Calculated Osmolality 293 288 Calcium 9.4 8.4 Phosphorus 4.9 3.9 Magnesium 1.8 1.7 Total Creatine Kinase < 15 L Troponin I Albumin 3.6 PTH Intact 119.1 H 10/02/24 07:42 WBC RBC Hgb Hct MCV MCH MCHC RDW Std Deviation Plt Count Neut % (Auto) Lymph % (Auto) [place] % (Auto) Eos % (Auto) Baso % (Auto) Neut # (Auto) Lymph # (Auto) [place] # (Auto) Eos # (Auto) Baso # (Auto) Immature Gran # (Auto) Absolute Nucleated RBC Immature Gran % Nucleated RBC % Sodium Potassium Chloride Carbon Dioxide Anion Gap BUN Creatinine Estim Creat Clear Calc eGFR BUN/Creatinine Ratio Glucose Calculated Osmolality Calcium Phosphorus Magnesium Total Creatine Kinase Troponin I < 0.020 Albumin PTH Intact Assessment & Plan Additional Assessment & Plan Additional Plan: Plan 74 y/o M with PMHx significant for peripheral artery disease, coronary artery disease, hypertension, type 2 diabetes(a1c 8.3), BPH, right BKA (done 09/[address] arellano)presents with chief complaint constipation x 5 days and 1 episode of vomiting today, admitted for martin on suspected underlying CKD. #MARTIN on suspected CKD Patient presented with complaints constipation and 2x nonbillious, nonbloody of emesis, poor p.o. intake , last BM was 5 days ago. BUN 44, creatinine 2.1 from Cr at time of discharge 1.1, EGFR 32 from baseline greater than 60. UA is dark and concentrated, 1+ protein, Received 500 mL bolus normal saline in the ED. - cont IV fluids, monitor UOP, - strict i and o. - Monitor daily renal function - Avoid nephrotoxins Creatinine better #electrolyte abnormalities #hyperkalemia #hypercalcemia, Potassium better #Constipation Patient has constipation x 5 days. KUB with significant stool burden without obstruction in the colon. - s/p disimpaction performed in the ED. - soapsuds enema. - Lactulose tid #mild leukocytosis wbc 17, tachycardic to 100s, UA + leukesterase but otherwise bland no respiratory symptoms, afebrile COVID rapid vs influenza? Pending cultures #insulin dependent Type 2 diabetes #hyperglycemia, 400 on admission on prior admission, pt had glucose difficult to control on just insulin, A1c 8.3% as of 09/05/2024. Glucose 403 in the ED. given 10 units lispro x 1 given. Home regimen: Takes insulin glargine 10 units every morning and 30 units every afternoon, plus lispro 5 units 3 times daily, januvia 100 mg qd - ISS step 2 - Carb consistent meals - Lispro 5 units 3 times daily AC - Long-acting 25 units every afternoon - recommend adding januvia 50 qd while in patient. #?tachycardia pt with HR in 100s, no ekg scanned for this admission yet. #HTN normotensive #BPH Noted to have nontender suprapubic mass on exam. - Resume home finasteride 5 mg daily - Bladder scan, not retaining #CAD #HTN #PAD Patient history as stated. - Resume home amlodipine 10 mg daily - Resume home aspirin 81 mg daily - Resume home lisinopril 40 mg daily #Right BKA Patient has right leg BKA, recent, surgical site clean dry and intact. s/p bka with dr arellano on 09/09/24, johnathan removed. No pus drainage. dressed with kerlex, - Wound care #normocytic anemia iron studies from 08/2024 with low levels DVT prophylaxis: Heparin GI prophylaxis: None Diet: Cardiac, consistent carb Lines: Peripheral IV Code status: Full code Quality - progress note Quality Measures Quality Measures: VTE prophylaxis Reason for Continued Stay Reason for Continued Stay: further monitoring
[2024-10-02] MEDS: INSULIN LISPRO (AdmeLOG) 1 UNIT/0.01 ML UNIT 5 UNIT SC (11:36)
[2024-10-02 12:25] LABS: Troponin I < 0.020 ng/mL (0.0-0.045)
--- NOTE | 2024-10-02 15:19 | PC.SS ---
SS follow up note; Patient will discharge within 1-2 days. Patient is getting treated for UTI with IV ABX.
[2024-10-02 17:35] LABS: Troponin I < 0.020 ng/mL (0.0-0.045)
[2024-10-02] MEDS: INSULIN DEGLUDEC 5 UNIT/0.05 ML (PER 5 UNITS) 15 UNIT SC (20:21)
[2024-10-02] MEDS: INSULIN LISPRO (AdmeLOG) 1 UNIT/0.01 ML UNIT SC (20:22)
[2024-10-02] MEDS: TAMSULOSIN HCL 0.4 MG CAPSULE PO (20:22)
[2024-10-03] VITALS: BP 104/59; PULSE 84; PULSE 86; RESP 20; TEMP 36.6; O2SAT 92
[2024-10-03 04:00] VITALS: BP 106/60; PULSE 84; PULSE 87; RESP 19; TEMP 37; O2SAT 92
[2024-10-03] MEDS: LACTULOSE SYRUP 20 GM/30 ML UDC 30 GM PO (05:16)
[2024-10-03 06:14] LABS: Basophils # (Auto) 0.1 Thou/mm3 (0.0-0.2); Basophils % (Auto) 0 % (0-2.5); Eosinophils # (Auto) 0.1 Thou/mm3 (0.0-0.5); Eosinophils % (Auto) 1 % (0-10); Hematocrit 28.8 % (41.0-53.0); Hemoglobin 9.1 g/dL (13.5-16.0); Immature Granulocytes Auto 0.09 Thou/mm3 (0.00-0.00); Lymphocytes # (Auto) 2.4 Thou/mm3 (1.0-4.8); Lymphocytes % (Auto) 20 % (10-50); Mean Corpuscular HGB Conc 31.6 g/dl (31.0-37.0); Mean Corpuscular Hemoglobin 29.9 pg (25.0-35.0); Mean Corpuscular Volume 95 fL (80-100); Monocytes # (Auto) 1.1 Thou/mm3 (0.0-0.8); Monocytes % (Auto) 10 % (0-12); Neutrophils # (Auto) 8.0 Thou/mm3 (1.8-7.7); Neutrophils % (Auto) 68 % (37-80); Nucleated Red Blood Cell # 0.00 Thou/mm3 (0.00-0.00); Nucleated Red Blood Cell % 0 /100 WBC (0); Platelet Count 201 Thou/mm3 (140-440); RDW Standard Deviation 59.7 fL (35.1-43.9); Red Blood Count 3.04 Miln/mm3 (4.50-5.90); White Blood Count 11.8 Thou/mm3 (3.8-10.6)
[2024-10-03 06:55] LABS: Alanine Aminotransferase 9 U/L (10-49); Albumin, Serum 3.1 gm/dL (3.4-4.8); Albumin/Globulin Ratio 1.4 (1.2-2.2); Alkaline Phosphatase 109 U/L (46-116); Anion Gap 12 (7-16); Aspartate Amino Transferase < 8 U/L (0-34); BUN/Creatinine Ratio 14 Ratio (12-20); Bilirubin,Total 0.3 mg/dL (0.3-1.2); Blood Urea Nitrogen 26 mg/dL (9-23); Calcium 8.9 mg/dL (8.3-10.6); Calcium (Corrected) 9.6 mg/dL (8.5-10.1); Carbon Dioxide 29.1 mMol/L (20.0-31.0); Chloride 102 mMol/L (98-107); Creatinine (Component) 1.8 mg/dL (0.6-1.3); Estimated Creatinine Clearance 34.8 mL/min (>60); Globulin 2.2 gm/dL (2.3-3.5); Glucose 93 mg/dL (74-106); Magnesium 2.0 mg/dL (1.6-2.6); Osmolality,Calculated 289 (275-295); Phosphorous 3.7 mg/dL (2.4-5.1); Potassium 3.0 mMol/L (3.4-5.1); Sodium 143 mMol/L (136-145); Total Protein 5.3 gm/dL (5.7-8.2); eGFR 39 See Note
[2024-10-03 07:27] VITALS: BP 110/65; PULSE 87; RESP 17; TEMP 36.2; O2SAT 94
[2024-10-03] MEDS: SERTRALINE HCL 25 MG TABLET 50 MG PO (08:50)
[2024-10-03] MEDS: cefTRIAXone/D5w 1gm IV premix 1 GM/50 ML BAG IV (08:50)
[2024-10-03] MEDS: FINASTERIDE 5 MG TABLET PO (08:50)
[2024-10-03] MEDS: HEPARIN SOD INJ 5000 UNIT/ML VIAL SC (08:50)
[2024-10-03 08:51] VITALS: BP 110/65; PULSE 87
[2024-10-03] MEDS: ASPIRIN 81 MG CHEW PO (08:51)
[2024-10-03] MEDS: BALSAM PERU/CASTOR OIL (Venelex) 60 GM TUBE TOP (08:51)
--- NOTE | 2024-10-03 10:27 | ESPR_ITS ---
Documentation for date of: 10/03/24 Subjective Subjective Interval history: Mr. Marc is a 74 year old gentleman and well known patient of Dr. Herrera, per pt and h and p pt was admitted on observation, he has a hx of PAD, CAD, T2DM, BPH, R BKA 09/[address] Arellano, who presented with c/f constipation. he has not had BM in the past 5 days, he endorses nausea and 2x nonbloody emesis at home. he denies abdominal pain, fevers, chills shortness of breath, abdominal pain, and dysuria pt usually does not have a bm every day, typically every 3 days, however this constipation is extreme for him. Of note: pt was recently discharged 09/14/2024, for poorly healing R LE wound, he hand BKA with dr arellano, sugars were not well controlled on just insulin, Dr. Herrera was consulted to help manage blood sugars at that time, restarted januvia while inpatient for better glucose control. ED COURSE: Labs significant for: WBC 17.2, potassium 5.9, bicarb 28.9, BUN 44, creatinine 2.1 (baseline 1.1), EGFR 32 (baseline greater than 60), glucose 403. Imaging significant for: Abdominal x-ray showing large stool burden without obstruction throughout colon. Patient received 500 mL normal saline while in the ED. Patient received manual disimpaction while in the ED, soapsuds enema ordered. PMH: PAD, CAD, HTN, T2DM, BPH PSH: Open heart valve replacement, CABG, right BKA SH: Denies alcohol, tobacco, illicit drug use. Allergies:?NKDA Medications: Amlodipine, aspirin, atorvastatin, finasteride, insulin, Januvia, lisinopril, oxybutynin, Latia-Chata, Zoloft 09/30/2024: Pt admitted to observation by night team, MYRA elder obstructive pattern. s/p manual disimpaction in the ED 10/01/2024: Patient seen and examined at bedside. he is well appearing in no acute distress. BKA is wrapped in kerlix, pictures in physical chart dont show signs of infection, granulation tissue present, wound consult is placed. Blood sugar was high on presentation, given 10 units of lispro at 0200, then 9 units lispro (5 scheduled and 4 sliding scale) at 0800 with breakfast. abdomen is SNTND on exam. soap sudd enema given at 1000, he states that his daughter renea will be by to visit him late today. Cr 2.1 from 1.1 at time of discharge earlier this month. Given MARTIN on CKD, recommend continuing IV fluids. 10/02/2024 johnathan were removed from the right BKA stump. Labs and medications reviewed. Creatinine started to improve. Blood sugars are better. Patient currently seen in medical floor. Resting comfortably. 10/03/2024: Patient seen and examined at bedside daughter Renea present labs and medication reviewed discussion with primary team indicated that they were planning to discharge with 5 more days of antibiotics for UTI. On exam right BKA appears well-healed and intact johnathan were removed no dehiscence no pus no pain to palpation. Blood sugars were well-controlled this morning white blood cell count downtrending, patient has had bowel movements for the past 3 days. Plan to discharge per primary team.Patient was discharged and noted to be seen in the ED for? Syncope Exam Vital Signs Temp Pulse Resp BP Pulse Ox O2 Del Method 97.2 F 87 17 110/65 94 L Room Air 10/03/24 07:27 10/03/24 08:51 10/03/24 07:27 10/03/24 08:51 10/03/24 07:27 10/03/24 07:27 Narrative Exam GENERAL APPEARANCE: Patient seems to be comfortable, adequately hydrated and nourished. HEENT: EOMI, PERRLA NECK: Neck supple, no JVD or bruit CARDIOVASCULAR: Heart regular, no murmurs LUNGS/CHEST: Chest clear to auscultation. No rales, rhonchi, wheezing ABDOMEN: Soft, nontender, nondistended. No masses. Normal bowel sounds. EXTREMITIES: No edema, clubbing or cyanosis. SKIN: Skin exam normal without any rashes MUSCULOSKELETAL: Status post right BKA, (johnathan removed) LYMPHATICS: No lymphadenopathy noted NEUROLOGICAL : No neurological deficits Objective Labs 10/03/24 04:32 10/03/24 04:37 Labs: Laboratory Results - last 24 hr 10/02/24 10/02/24 10/03/24 11:50 16:37 04:32 WBC 11.8 H RBC 3.04 L Hgb 9.1 L Hct 28.8 L MCV 95 MCH 29.9 MCHC 31.6 RDW Std Deviation 59.7 H Plt Count 201 Neut % (Auto) 68 Lymph % (Auto) 20 [place] % (Auto) 10 Eos % (Auto) 1 Baso % (Auto) 0 Neut # (Auto) 8.0 H Lymph # (Auto) 2.4 [place] # (Auto) 1.1 H Eos # (Auto) 0.1 Baso # (Auto) 0.1 Immature Gran # (Auto) 0.09 H Absolute Nucleated RBC 0.00 Immature Gran % 1 H Nucleated RBC % 0 Sodium Potassium Chloride Carbon Dioxide Anion Gap BUN Creatinine Estim Creat Clear Calc eGFR BUN/Creatinine Ratio Glucose Calculated Osmolality Calcium Corrected Calcium Phosphorus Magnesium Total Bilirubin AST ALT Alkaline Phosphatase Troponin I < 0.020 < 0.020 Total Protein Albumin Globulin Albumin/Globulin Ratio 10/03/24 04:37 WBC RBC Hgb Hct MCV MCH MCHC RDW Std Deviation Plt Count Neut % (Auto) Lymph % (Auto) [place] % (Auto) Eos % (Auto) Baso % (Auto) Neut # (Auto) Lymph # (Auto) [place] # (Auto) Eos # (Auto) Baso # (Auto) Immature Gran # (Auto) Absolute Nucleated RBC Immature Gran % Nucleated RBC % Sodium 143 Potassium 3.0 L D Chloride 102 Carbon Dioxide 29.1 Anion Gap 12 BUN 26 H Creatinine 1.8 H Estim Creat Clear Calc 34.8 L eGFR 39 L BUN/Creatinine Ratio 14 Glucose 93 Calculated Osmolality 289 Calcium 8.9 Corrected Calcium 9.6 Phosphorus 3.7 Magnesium 2.0 Total Bilirubin 0.3 AST < 8 ALT 9 L Alkaline Phosphatase 109 D Troponin I Total Protein 5.3 L Albumin 3.1 L D Globulin 2.2 L Albumin/Globulin Ratio 1.4 Quality Measures Quality Measures VTE prophylaxis Advance care planning discussed with:: patient and child Assessment & Plan Assessment Current Active Medications: Generic Name Dose Route Start Last Admin Trade Name Freq PRN Reason Stop Dose Admin Acetaminophen 650 mg 10/01/24 01:45 Acetaminophen 325 Mg Tablet PO 10/31/24 01:44 Q6H PRN Fever >100.4 or pain 1-3 Amlodipine Besylate 10 mg 10/01/24 09:00 10/03/24 08:51 Amlodipine Besylate 5 Mg Tablet PO 10/31/24 08:59 10 mg QDAY ALEXIS Administration Aspirin 81 mg 10/01/24 09:00 10/03/24 08:51 Aspirin 81 Mg Chew PO 10/31/24 08:59 81 mg QDAY ALEXIS Administration Balsam Ping/[place] Oil 0 gm 10/01/24 21:00 10/03/24 08:51 Balsam [place] Oil (Venelex) 60 Gm Tube TOP 10/31/24 20:59 1 applicatio BID ALEXIS Administration Dextrose 25 ml 10/01/24 01:45 Dextrose 50%-Water Inj 50 Ml Syringe IV 10/31/24 01:44 Q15MIN PRN BG 50-70 responsive npo pt Dextrose 50 ml 10/01/24 01:45 Dextrose 50%-Water Inj 50 Ml Syringe IV 10/31/24 01:44 Q15MIN PRN BG <50 OR BG <70 & pt unresponsive Finasteride 5 mg 10/01/24 09:00 10/03/24 08:50 Finasteride 5 Mg Tablet PO 10/31/24 08:59 5 mg QDAY ALEXIS Administration Glucagon 1 mg 10/01/24 01:45 Glucagon Inj 1 Mg Vial IM Q15MIN PRN BG <70, and no IV access Heparin Sodium (Porcine) 5,000 unit 10/01/24 09:00 10/03/24 08:50 Heparin Sod Inj 5000 Unit/Ml Vial SC 10/15/24 08:59 5,000 unit Q12HR ALEXIS Administration Ceftriaxone Sodium/Dextrose 1 gm in 50 mls @ 100 mls/hr 10/01/24 18:13 10/03/24 08:50 Rocephin/D5w 1gm Iv Premix IV 10/08/24 18:12 100 mls/hr QDAY ALEXIS Administration Insulin Degludec 15 unit 10/01/24 21:00 10/02/24 20:21 Insulin Degludec 5 Unit/0.05 Ml (Per 5 Units) SC 10/31/24 20:59 15 unit QPM ALEXIS Administration Insulin Human Lispro 5 unit 10/01/24 07:30 10/03/24 07:11 Insulin Lispro (Admelog) 1 Unit/0.01 Ml Unit SC 10/31/24 07:29 Not Given AC [facility] Insulin Human Lispro 0 unit 10/01/24 07:30 10/03/24 08:49 Insulin Lispro (Admelog) 1 Unit/0.01 Ml Unit SC 10/31/24 07:29 Not Given ACHS ALEXIS Protocol Lactulose 30 gm 10/01/24 14:00 10/03/24 05:16 Lactulose Syrup 20 Gm/30 Ml Udc PO 10/31/24 13:59 30 gm TID ALEXIS Administration Protocol Lisinopril 40 mg 10/01/24 09:00 10/03/24 08:51 Lisinopril 20 Mg Tablet PO 10/31/24 08:59 40 mg QDAY ALEXIS Administration Ondansetron HCl 4 mg 10/01/24 01:45 Ondansetron Inj 2 Mg/Ml Inj 2 Ml IVP 10/31/24 01:44 Q6H PRN NAUSEA OR VOMITING Protocol Potassium Chloride 20 meq 10/03/24 17:30 Potassium Chloride 20 Meq Tabcr PO 11/02/24 17:29 BIDWM ALEXIS Sertraline HCl 50 mg 10/02/24 09:00 10/03/24 08:50 Sertraline Hcl 25 Mg Tablet PO 11/01/24 08:59 50 mg DAILY ALEXIS Administration Sitagliptin Phosphate 50 mg 10/02/24 09:00 10/03/24 08:51 Sitagliptin Phosphate 50 Mg Tablet PO 11/01/24 08:59 50 mg QDAY ALEXIS Administration Tamsulosin HCl 0.4 mg 10/01/24 21:00 10/02/24 20:22 Tamsulosin Hcl 0.4 Mg Capsule PO 10/31/24 20:59 0.4 mg HS ALEXIS Administration Tramadol HCl 50 mg 10/01/24 01:45 Tramadol Hcl 50 Mg Tablet PO 10/06/24 01:44 Q6HR PRN PAIN SCALE 4-10(Mod-Sev Plan 74 y/o M with PMHx significant for peripheral artery disease, coronary artery disease, hypertension, type 2 diabetes(a1c 8.3), BPH, right BKA (done 09/[address] arellano)presents with chief complaint constipation x 5 days and 1 episode of vomiting today, admitted for martin on suspected underlying CKD. Cr improved compared to time of admission, plan to discharge per primary team with abx for UTI. #MARTIN on suspected CKD Patient presented with complaints constipation and 2x nonbillious, nonbloody of emesis, poor p.o. intake , last BM was 5 days ago. BUN 44, creatinine 2.1 from Cr at time of discharge 1.1, EGFR 32 from baseline greater than 60. UA is dark and concentrated, 1+ protein, Received 500 mL bolus normal saline in the ED. - cont IV fluids, monitor UOP, - strict i and o. - Monitor daily renal function - Avoid nephrotoxins - Cr improved from time of admission, 1.8 now #electrolyte abnormalities #hyperkalemia #hypercalcemia, - replete potassum per primary team #Constipation- resolved Patient has constipation x 5 days. KUB with significant stool burden without obstruction in the colon. - s/p disimpaction performed in the ED. - soapsuds enema. - Lactulose tid #UTI #mild leukocytosis - downtrending wbc 17, tachycardic to 100s, UA + leukesterase but otherwise bland no respiratory symptoms, afebrile COVID rapid vs influenza? - plan to discharge with 5 more days abx per primary team #insulin dependent Type 2 diabetes #hyperglycemia, 400 on admission - resolved on prior admission, pt had glucose difficult to control on just insulin, A1c 8.3% as of 09/05/2024. Glucose 403 in the ED. given 10 units lispro x 1 given. Home regimen: Takes insulin glargine 10 units every morning and 30 units every afternoon, plus lispro 5 units 3 times daily, januvia 100 mg qd - ISS step 2 - Carb consistent meals - Lispro 5 units 3 times daily AC - Long-acting 25 units every afternoon - recommend adding januvia 50 qd while in patient. #?tachycardia pt with HR in 100s, 10/02 reported chestpain, troponin negative. #HTN normotensive #BPH Noted to have nontender suprapubic mass on exam. - Resume home finasteride 5 mg daily - Bladder scan, not retaining #CAD #HTN #PAD Patient history as stated. - Resume home amlodipine 10 mg daily - Resume home aspirin 81 mg daily - Resume home lisinopril 40 mg daily #Right BKA Patient has right leg BKA, recent, surgical site clean dry and intact. s/p bka with dr arellano on 09/09/24, johnathan removed 10/02, No pus drainage. dressed with kerlex, - Wound care #normocytic anemia iron studies from 08/2024 with low levels DVT prophylaxis: Heparin GI prophylaxis: None Diet: Cardiac, consistent carb Lines: Peripheral IV Code status: Full code Plan discussed with nephrology attending Dr. Sharon Villegas MD Internal Medicine PGY-1 Attending Provider Attestation/Addendum Patient seen and examined with resident physician Dr. Villegas. Note reviewed, agree with findings and recommendations. Patient admitted with weakness, MARTIN. Creatinine improved with IV fluids. Recently had a Right BKA for gangrene. possible discharge today.. [place] removed from the stump.
[2024-10-03] MEDS: INSULIN LISPRO (AdmeLOG) 1 UNIT/0.01 ML UNIT SC (11:15)
[2024-10-03] MEDS: INSULIN LISPRO (AdmeLOG) 1 UNIT/0.01 ML UNIT 5 UNIT SC (11:15)
--- NOTE | 2024-10-03 11:55 | PC.NURSE ---
Patients daughter wanted to talk to social services assistant. legal services professional at bedside. Daughters questions are being answered. Patient is ready to DC.
[2024-10-03 12:00] VITALS: BP 118/66; PULSE 80; RESP 17; TEMP 36.2; O2SAT 94
--- NOTE | 2024-10-03 12:10 | PC.SS ---
WheelChairs Patients diagnosis creates mobility limitations that significantly impairs ability to participate in the patient?s activities of daily living either in their entirety, or in a reasonable time frame in the home and the patient?s mobility limitations cannot be sufficiently resolved with an appropriately fitted cane or walker. Also the use of a manual wheelchair will sufficiently improve patient?s ability to participate in the activities of daily living in the home and the patient is willing to use the wheelchair that is provided in the home. The patient has some one in the home that is available, willing and able to provide assistance with the wheelchair. Bedside Commode Patient is physically incapable of utilizing regular toilet facilities because his or her diagnosis confines the patient to a single room. Patient is confined to a single level, and there is no toilet on that level; patient cannot access the toilet facilities in a timely manner due to lack of ambulation. Mitzi lift Patient needs a mitzi lift for home: Patient requires transfer between the bed, chair, wheelchair and commode that requires the assistance of more than one person. Without the use of the lift the patient would be confined or dependent transfer.
--- NOTE | 2024-10-03 14:11 | PC.SS ---
SS follow up note; SS sent DME request to [facility] for a Mitzi lift, 3 in 1 Commode and Wheelchair. [facility] will contact patient's daughter for delivery
--- NOTE | 2024-10-03 15:52 | ESDS_ITS ---
<Statement entered by James Galindo MD - 10/15/24 08:44> I reviewed above note and agree with findings and plans. I have also personally examined the patient with medicine team and went over assessment and plan with medical team including planner internship and resident physician. <Statement entered by Hong De Paz MD - 10/03/24 17:39> Patient was examined and case was reviewed with team including attending physician. Note reviewed, I agree with most of its contents and agree with the patient's care as documented by Dr. Oliver De Paz MD PGY-2 Planned Discharge Date 10/03/24 DS: Providers Provider Date of admission: 10/01/24 01:45 Primary care physician: Yonny Herrera MD Admitting Provider: Hector Barney MD Attending Provider on Admission: James Galindo MD Consults: 10/01/24 01:50 Referral Wound Care Stat Comment: Right BKA with surgical site wound Attending Provider on DC: James Galindo MD Discharging Provider: Enma Boyd DO Anticipated date of discharge: 10/03/24 DS: Diagnosis Problem List Completed Was Problem List Reviewed/Reconciled?: Yes Hospital Course Hospital Course Hospital course: 74-year-old male with a history of peripheral artery disease, coronary artery disease, hypertension, type 2 diabetes, benign prostatic hyperplasia, and a right below-knee amputation was admitted on 10/01/2024 for acute kidney injury, constipation, nausea, vomiting, and hyperglycemia. Upon presentation, the patient complained of constipation for 5 days, along with one episode of vomiting and poor oral intake. Patient was managed with IV fluids and renal function improved. Nephrology was consulted for ongoing monitoring and fluid management. Patient was found to have a complicated urinary tract infection, as evidenced by a positive urine analysis for leukocyte esterase and white blood cells. He was started on IV ceftriaxone. Additionally, the patient?s hyperglycemia was addressed, as his blood glucose was 403 on admission. Per nephrology recs, he was started on an insulin regimen and Januvia. Patient's blood glucose levels improved with this regimen. Regarding his constipation, the patient had a significant stool burden on abdominal x-ray but no obstruction. Disimpaction was performed in the ED, and lactulose was started. Electrolyte abnormalities were noted, with hyperkalemia and hypercalcemia on admission. Kayexalate was administered, and electrolytes will continue to be monitored during follow-up. Patient also complained of chest pressure sensation, especially on deep inspiration. EKG was ordered and found to have no acute ST segment elevations. Troponins were also ordered found to be negative x 3. By the time of discharge, patient reported that he no longer had the chest pressure. Patient?s chronic conditions were managed according to his baseline regimen. His coronary artery disease, hypertension, and peripheral artery disease were treated with his home medications, including amlodipine, aspirin, and lisinopril. His benign prostatic hyperplasia symptoms were managed with finasteride, and a bladder scan confirmed no retention. His right below-knee amputation surgical site was clean, dry, and intact, and routine wound care was advised. At discharge, the patient is stable, with improvements in his renal function, resolution of constipation, and ongoing treatment for his UTI and hyperglycemia. He is to continue his medications, follow up with his primary care provider within the next 1-2 weeks. Patient is medically and physically stable for discharge. Diagnosis: #Acute kidney injury, likely prerenal #Chronic kidney disease stage III #Complicated urinary tract infection #Hyperglycemia #Type 2 diabetes #Constipation #Hyperkalemia #Hypercalcemia #Benign prostatic hyperplasia #Coronary artery disease #Peripheral artery disease #Right below-knee amputation Discharge Plan: Follow up with primary care physician within 1 week of discharge. You have been prescribed augmentin for your urinary tract infection please take this medication as prescribed for 5 more days. Should your symptoms recur or worsen patient is instructed to return to the ED. Case discussed with my senior resident Dr. Gabriel De Paz and with my attending Dr. Galindo. Enma Boyd DO PGY 1 Status at Discharge Overall status at discharge: patient is back to baseline Time Spent with Patient Time attestation: Total time spent providing and/or coordinating discharge services: Time spent: Greater than 30 minutes Exam Vital Signs Temp Pulse Resp BP Pulse Ox O2 Del Method 97.2 F 80 17 118/66 94 L Room Air 10/03/24 12:10/03/24 12:10/03/24 12:10/03/24 12:10/03/24 12:10/03/24 12:00 Narrative Exam Physical Exam General: Awake and in no acute distress. Conversational and non-toxic appearing. HEENT: Normocephalic, atraumatic, mucous membranes moist. Heart: Regular rate and rhythm, no murmurs. Lungs: Clear to auscultation with no wheezing or crackles. Abdomen: Soft, nondistended, nontender. No guarding or rebound tenderness. Neurologic: Alert and oriented x3, no gross neurological deficit, and patient able to move all 4 extremities. Extremities: No edema. Right BKA - not erythematous, no swelling, and no drainage. Skin: No rash or ecchymoses. MSK: no pain with palpation of sternum. Discharge Plan Plan Patient Disposition: HOME (Self Care) Care Plan Goals: Follow up with primary care physician within 1 week of discharge You have been prescribed augmentin for your urinary tract infection please take this medication as prescribed for 5 more days Should your symptoms recur or worsen patient is instructed to return to the ED. Prescriptions/Referrals Prescriptions/Med Rec: New amoxicillin-pot clavulanate 500-125 mg tablet 1 tab PO BID 5 Days Qty: 10 0RF Continued aspirin [Bert Low Dose Aspirin] 81 mg Tablet,Delayed Release (Dr/Ec) 81 mg PO QDAY oxybutynin chloride 10 mg tablet extended release 24hr 10 mg PO HS Patient Comments: TAKE 1 TABLET BY MOUTH AT BEDTIME sertraline 50 mg tablet 50 mg PO DAILY Patient Comments: TAKE 1 TABLET BY MOUTH ONCE DAILY amlodipine 10 mg tablet 10 mg PO QDAY Qty: 0 0RF oxycodone-acetaminophen 5-325 mg Tablet 1 tab PO Q6HR PRN (Reason: Pain Scale 7-10 (Severe) Qty: 0 0RF insulin lispro 100 unit/mL Solution 5 unit SCi AC Qty: 0 0RF Januvia 50 mg Tablet 100 mg PO QDAY Qty: 0 0RF insulin glargine [Lantus U-100 Insulin] 100 unit/mL Solution 30 unit SCi HS Qty: 2 0RF (DME) FreeStyle Singh 14 Day Sensor Kit See Rx Instructions .Route Qty: 1 0RF Rx Instructions: As directed (DME) insulin syringe-needle U-100 [Insulin Syringe] 0.5 mL 29 gauge x 1/2 syringe See Rx Instructions .Route Qty: 10 0RF Rx Instructions: As directed atorvastatin [Lipitor] 10 mg Tablet 20 mg PO HS Qty: 30 0RF Renal-Chata 0.8 mg tablet 1 tab PO Q24H Qty: 30 0RF bisacodyl 5 mg tablet,delayed release (DR/EC) 5 mg PO PRN Qty: 30 0RF lisinopril 40 mg Tablet 40 mg PO QDAY Qty: 30 0RF finasteride 5 mg Tablet 5 mg PO QDAY Qty: 30 0RF ferrous sulfate [FeroSul] 325 mg (65 mg iron) tablet 325 mg PO QDAY ascorbic acid (vitamin C) [C-500] 500 mg tablet 500 mg PO BID Referrals: Yonny Herrera MD [Primary Care Provider] - Patient/Caregiver Discharge Instructions Education Materials: Eating a High-Fiber Diet, Eating Heart-Healthy Foods, ED Constipation (Adult) Print Language: Tristanian Stand Alone Forms: Martha Award Info., Patient Portal Info Letter, Work/Release Restrictions Discharge Order Discharge Orders: Discharge (Routine); Ordered 10/03/24 Ordered By: Hong De Paz Quality Discharge Quality Measures none
== END 2024-10-03 12:09 | disposition home or self-care (01) ==
LOC: SERX 10-01 00:42 → S3SX 10-01 08:41 → SERHOLD 10-02 08:50
PROVIDERS: Admitting Provider Internal Medicine; Emergency Provider Emergency Medicine; PCP Internal Medicine; Visit Provider Internal Medicine
DX: N17.9 Acute kidney failure, unspecified (principal); I12.9 Hypertensive chronic kidney disease with stage 1 through stage 4 chronic kidney disease, or unspecified chronic kidney disease; E11.22 Type 2 diabetes mellitus with diabetic chronic kidney disease; E83.52 Hypercalcemia; E87.5 Hyperkalemia; K59.00 Constipation, unspecified; E11.65 Type 2 diabetes mellitus with hyperglycemia; N18.30 Chronic kidney disease, stage 3 unspecified; N39.0 Urinary tract infection, site not specified; I25.10 Atherosclerotic heart disease of native coronary artery without angina pectoris; Z89.511 Acquired absence of right leg below knee; R94.31 Abnormal electrocardiogram [ECG] [EKG]; D64.9 Anemia, unspecified; E11.51 Type 2 diabetes mellitus with diabetic peripheral angiopathy without gangrene; N40.1 Benign prostatic hyperplasia with lower urinary tract symptoms; R39.11 Hesitancy of micturition
CPT/HCPCS: 36415; 74019; 80048; 80053; 80069; 81001; 82040; 82436; 82550; 82570; 83735; 83970; 84100; 84133; 84156; 84300; 84484; 85025; 87081; 87086; 93005; 96360; 96361; 96365; 96372; 99284; G0378; J0696; J1644; J1815; J7120; J7999; A9270

== ENCOUNTER 2024-10-03 12:55 | Emergency (ER) | payer MEDICARE, MEDICAID, SELFPAY ==
[2024-10-03 12:57] VITALS: PULSE 122; RESP 16; O2SAT 97; BMI 24.3
--- NOTE | 2024-10-03 13:19 | XR_ITS ---
Examination: AP chest single view Technique one AP portable semiupright chest single view Date and time: October 03, 2024 1412 hours INDICATIONS: Syncope weakness today. FINDINGS: Minor atelectasis left base CABG. Normal heart size. No aspiration pneumonia IMPRESSION: No aspiration pneumonia.
--- NOTE | 2024-10-03 13:22 | EKG_ITS ---
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
--- NOTE | 2024-10-03 13:22 | PD.EDSYNC ---
ED Syncope RME/HPI General Chief Complaint: Syncope / Near Syncope Stated Complaint: SYNCOPE Time Seen by Provider: 10/03/24 13:13 Arrival date/time: 10/03/24 12:55 RME / HPI RME / HPI narrative: 74-year-old male patient with significant history of hypertension diabetes mellitus, came in for evaluation regarding near syncope. Family called EMS, and when the EMS arrived patient was noted to be having syncope, lasted for few seconds. When I asked the patient patient does not know what happened. Patient had recent below-knee amputation done several weeks ago. Patient denies any fever denies any chest pain denies any headache on my initial evaluation patient was noted to be alert and oriented x 3. Patient was just recently discharged from the hospital today. Related Data Home Medications ?Medication ?Instructions ?Recorded ?Confirmed aspirin 81 mg tablet,delayed 81 mg PO QDAY 11/17/17 10/01/24 release (Bert Low Dose Aspirin) oxybutynin chloride 10 mg 10 mg PO HS 09/02/24 10/01/24 tablet,extended release 24 hr sertraline 50 mg tablet 50 mg PO DAILY 09/02/24 10/01/24 ascorbic acid (vitamin C) 500 mg 500 mg PO BID 10/01/24 10/01/24 tablet (C-500) ferrous sulfate 325 mg (65 mg 325 mg PO QDAY 10/01/24 10/01/24 iron) tablet (FeroSul) Previous Rx's ?Medication ?Instructions ?Recorded atorvastatin 10 mg tablet (Lipitor) 20 mg (2 x 10 mg) PO HS #30 tabs 04/08/24 bisacodyl 5 mg tablet,delayed 5 mg PO PRN #30 tabs 04/08/24 release finasteride 5 mg tablet 5 mg PO QDAY #30 tabs 04/08/24 flash glucose sensor (FreeStyle #1 ea 04/08/24 Singh 14 Day Sensor kit) insulin syringe-needle U-100 0.5 #10 ea 04/08/24 mL 29 gauge x 1/2 (Insulin Syringe) lisinopril 40 mg tablet 40 mg PO QDAY #30 tabs 04/08/24 vitamin B complex-vitamin C-folic 1 tab PO Q24H #30 tabs 04/08/24 acid 0.8 mg tablet (Renal-Chata) amlodipine 10 mg tablet 10 mg PO QDAY #0 tabs 08/09/25 insulin glargine 100 unit/mL 30 unit (0.3 mL) SCi HS #2 pens 09/14/24 subcutaneous solution (Lantus U-100 Insulin) insulin lispro 100 unit/mL 5 unit (0.05 mL) SCi AC #0 mL 09/14/24 subcutaneous solution oxycodone-acetaminophen 5 mg-325 1 tab PO Q6HR PRN Pain Scale 7-10 09/14/24 mg tablet (Severe #0 tabs sitagliptin phosphate 50 mg tablet 100 mg (2 x 50 mg) PO QDAY #0 tabs 09/14/24 (Januvia) amoxicillin 500 mg-potassium 1 tab PO BID 5 days #10 tabs 10/03/24 clavulanate 125 mg tablet Allergies Allergy/AdvReac Type Severity Reaction Status Date / Time No Known Allergies Allergy Verified 10/03/24 13:03 Review of Systems Review of Systems Narrative Review of Systems: Review of system reviewed and within normal limits except mentioned in HPI ED Exam Narrative Physical exam: VITAL SIGNS: Reviewed. GENERAL APPEARANCE: Alert and interactive, follows commands, no acute distress, HEAD AND FACE: Non-traumatic. ENT: PERRL, pink conjunctivitis, eyelid no trauma, Mucous membrane moist. NECK: Supple, nontender, no nuchal rigidity. CHEST: No tenderness, no crepitus, no paradoxical movement, no retractions. LUNGS: Clear, well ventilated, symmetric, no rales, no wheezing, no ronchi, no stridor, good breath sounds bilaterally. HEART: Regular rate, regular rhythm, no murmur, no gallops. ABDOMEN: Soft, positive bowel sounds, nondistended, no guarding, nontender, no rebound, no masses, RECTAL: Deferred. GENITAL: Deferred. NEUROLOGICAL: Gross motor function intact sensory function intact, Appropriate for age. MUSCULOSKELETAL: low back nontender, full range of motion. EXTREMITIES: Nontender, full range of motion. Status post right below-knee amputation, no sign of infection SKIN: Color pink, dry, no rash, no lacerations, no abrasions, no contusions. LYMPHATICS: Deferred. Course Quality Measures none Orders Category Date Time Status EKG (ED ONLY) *Do not use* NOW Care 10/03/24 13:22 Completed EKG (ED Only) Stat Exams 10/03/24 13:22 Draft XR chest 1V Stat Exams 10/03/24 13:19 Completed CBC Stat Lab 10/03/24 13:47 Completed Comprehensive Metabolic Panel Stat Lab 10/03/24 13:47 Completed Partial Thromboplastin Time Stat Lab 10/03/24 13:47 Completed Troponin I Stat Lab 10/03/24 13:47 Completed Urinalysis, C/S if Indicated Stat Lab 10/03/24 17:22 Completed Urine Culture Stat Lab 10/03/24 17:22 Received Ringers Lactated 1000 ml [Lactated Ringers] 1,000 ml Med 10/03/24 13:20 Discontinued IV 999 mls/hr cefTRIAXone/D5w 1gm IV premix [Rocephin/D5w 1gm IV Med 10/03/24 19:13 Discontinued premix] 1 gm in 50 ml IV X1 Vital Signs Vital signs: Vital Signs Temperature 97.6 F 10/03/24 13:23 Pulse Rate 84 10/03/24 13:23 Respiratory Rate 17 10/03/24 13:23 Blood Pressure 102/74 10/03/24 13:23 Pulse Oximetry (%) 100 10/03/24 13:23 Oxygen Delivery Method Nasal Cannula 10/03/24 13:23 Oxygen Flow Rate 6 10/03/24 13:23 Syncope MDM Narrative MDM Narrative:: 74-year-old male patient with significant history of hypertension diabetes mellitus, came in for evaluation regarding near syncope. Family called EMS, and when the EMS arrived patient was noted to be having syncope, lasted for few seconds. When I asked the patient patient does not know what happened. Patient had recent below-knee amputation done several weeks ago. Patient denies any fever denies any chest pain denies any headache on my initial evaluation patient was noted to be alert and oriented x 3. Patient was just recently discharged from the hospital today. EKG showed sinus rhythm, ventricular rate of 85 bpm, NV interval 150 MS, no ST segment elevation or depression. Patient was noted to have a UTI. However patient told me that the hospitalist just prescribed him antibiotic for her UTI. They already moss picker antibiotic in the pharmacy. Today patient potassium was also noted to be 2.9. Patient received potassium replacement. Was also given a liter of IV fluids, and IV ceftriaxone. Patient stable for discharge home patient is alert and oriented x 3, no recurrence of symptoms in the ED. Plan of care discussed with the family also. Patient data External records reviewed:: None Clinical information provided by:: patient and family Social determinants that could affect healthcare access:: none Patient has the following chronic illnesses:: Diabetes mellitus hypertension CAD How is presenting disease/condition affected by chronic disease/condition?: exacerbated by Evaluation data The following diagnostics were reviewed and interpreted by me:: lab results, radiology exam(s) and EKG tracing(s) Lab and/or radiology exams considered but not ordered:: None Interpretation Summary: See results MDM Medications / Prescriptions Medications or Prescriptions considered but not ordered:: None Medication administrations:: Medication Administration History Discontinued Medications Lactated Ringer's (Lactated Ringers) 1,000 mls @ 999 mls/hr IV .Q1H1M ONE Stop: 10/03/24 14:20 Last Infusion: 10/03/24 14:20 Dose: Infused Documented By: Admin: 10/03/24 13:59 Dose: 999 mls/hr Documented By: MG Ceftriaxone Sodium/Dextrose (Rocephin/D5w 1gm Iv Premix) 1 gm in 50 mls @ 100 mls/hr IV X1 ONE Stop: 10/03/24 19:42 Last Admin: 10/03/24 19:40 Dose: 100 mls/hr Documented By: RC Ceftriaxone IV, IV fluids, potassium replacement Consultations Consultation(s) initiated? (list below): No Diagnosis Syncope Differential Diagnosis: syncope due to orthostatic hypotension and vasovagal syncope Most likely diagnosis given after review of the tests above:: UTI, vasovagal syncope, dehydration, hypokalemia Admission Indicated Admission indicated?: not indicated Admission Request Was there a request for admission?: No Disposition Plan Disposition Plan: Discharge Discharge Attestation Discharge Attestation: The patient and all family members were given an opportunity to ask questions and understood the discharge instructions. Discharge instructions specifically effects, indications for sooner follow up or return to the emergency department, and the expected course of current diagnosis. Patient condition: Stable Discharge Plan Plan Patient Disposition: HOME (Self Care) Discharge Disposition comment: Stable Prescriptions/Referrals Prescriptions/Med Rec: No Action aspirin [Bert Low Dose Aspirin] 81 mg Tablet,Delayed Release (Dr/Ec) 81 mg PO QDAY oxybutynin chloride 10 mg tablet extended release 24hr 10 mg PO HS Patient Comments: TAKE 1 TABLET BY MOUTH AT BEDTIME sertraline 50 mg tablet 50 mg PO DAILY Patient Comments: TAKE 1 TABLET BY MOUTH ONCE DAILY amlodipine 10 mg tablet 10 mg PO QDAY Qty: 0 0RF oxycodone-acetaminophen 5-325 mg Tablet 1 tab PO Q6HR PRN (Reason: Pain Scale 7-10 (Severe) Qty: 0 0RF insulin lispro 100 unit/mL Solution 5 unit SCi AC Qty: 0 0RF Januvia 50 mg Tablet 100 mg PO QDAY Qty: 0 0RF insulin glargine [Lantus U-100 Insulin] 100 unit/mL Solution 30 unit SCi HS Qty: 2 0RF (DME) FreeStyle Singh 14 Day Sensor Kit See Rx Instructions .Route Qty: 1 0RF Rx Instructions: As directed (DME) insulin syringe-needle U-100 [Insulin Syringe] 0.5 mL 29 gauge x 1/2 syringe See Rx Instructions .Route Qty: 10 0RF Rx Instructions: As directed atorvastatin [Lipitor] 10 mg Tablet 20 mg PO HS Qty: 30 0RF Renal-Chata 0.8 mg tablet 1 tab PO Q24H Qty: 30 0RF bisacodyl 5 mg tablet,delayed release (DR/EC) 5 mg PO PRN Qty: 30 0RF lisinopril 40 mg Tablet 40 mg PO QDAY Qty: 30 0RF finasteride 5 mg Tablet 5 mg PO QDAY Qty: 30 0RF ferrous sulfate [FeroSul] 325 mg (65 mg iron) tablet 325 mg PO QDAY ascorbic acid (vitamin C) [C-500] 500 mg tablet 500 mg PO BID amoxicillin-pot clavulanate 500-125 mg tablet 1 tab PO BID 5 Days Qty: 10 0RF Referrals: Yonny Herrera MD [Primary Care Provider] - In 1 week Problem List Clinical Impression: Vasovagal syncope, Acute UTI Patient/Caregiver Discharge Instructions Discharge Activity: activity as tolerated Education Materials: Understanding Urinary Tract ... Additional Instructions: Thank you for the opportunity for serving you today. You are stable for discharged . You are advised to: Follow-up with your PCP in 1 to 2 days Return to ED for worsening of symptoms Increase oral fluids Take medication as prescribed prescribed to hospitalist today Print Language: Kyrgyz Stand Alone Forms: Martha Award Info., Patient Portal Info Letter
[2024-10-03 13:23] VITALS: BP 102/74; PULSE 84; RESP 17; TEMP 36.4; O2SAT 100
[2024-10-03 13:59] LABS: Basophils # (Auto) 0.0 Thou/mm3 (0.0-0.2); Basophils % (Auto) 0 % (0-2.5); Eosinophils # (Auto) 0.1 Thou/mm3 (0.0-0.5); Eosinophils % (Auto) 1 % (0-10); Hematocrit 29.6 % (41.0-53.0); Hemoglobin 9.6 g/dL (13.5-16.0); Immature Granulocytes Auto 0.11 Thou/mm3 (0.00-0.00); Lymphocytes # (Auto) 2.2 Thou/mm3 (1.0-4.8); Lymphocytes % (Auto) 20 % (10-50); Mean Corpuscular HGB Conc 32.4 g/dl (31.0-37.0); Mean Corpuscular Hemoglobin 30.0 pg (25.0-35.0); Mean Corpuscular Volume 93 fL (80-100); Monocytes # (Auto) 1.1 Thou/mm3 (0.0-0.8); Monocytes % (Auto) 10 % (0-12); Neutrophils # (Auto) 7.7 Thou/mm3 (1.8-7.7); Neutrophils % (Auto) 68 % (37-80); Nucleated Red Blood Cell # 0.00 Thou/mm3 (0.00-0.00); Nucleated Red Blood Cell % 0 /100 WBC (0); Platelet Count 191 Thou/mm3 (140-440); RDW Standard Deviation 57.1 fL (35.1-43.9); Red Blood Count 3.20 Miln/mm3 (4.50-5.90); White Blood Count 11.2 Thou/mm3 (3.8-10.6)
[2024-10-03] MEDS: RINGERS LACTATED 1000 ML 1,000 ML 999 ML IV (13:59)
[2024-10-03 14:17] LABS: Alanine Aminotransferase 10 U/L (10-49); Albumin, Serum 3.2 gm/dL (3.4-4.8); Albumin/Globulin Ratio 1.4 (1.2-2.2); Alkaline Phosphatase 112 U/L (46-116); Anion Gap 12 (7-16); Aspartate Amino Transferase < 10 U/L (0-34); BUN/Creatinine Ratio 15 Ratio (12-20); Bilirubin,Total 0.2 mg/dL (0.3-1.2); Blood Urea Nitrogen 25 mg/dL (9-23); Calcium 9.0 mg/dL (8.3-10.6); Calcium (Corrected) 9.6 mg/dL (8.5-10.1); Carbon Dioxide 27.9 mMol/L (20.0-31.0); Chloride 102 mMol/L (98-107); Creatinine (Component) 1.7 mg/dL (0.6-1.3); Estimated Creatinine Clearance 36.9 mL/min (>60); Globulin 2.3 gm/dL (2.3-3.5); Glucose 85 mg/dL (74-106); Osmolality,Calculated 286 (275-295); Potassium 2.9 mMol/L (3.4-5.1); Sodium 142 mMol/L (136-145); Total Protein 5.5 gm/dL (5.7-8.2); Troponin I < 0.020 ng/mL (0.0-0.045); eGFR 42 See Note
[2024-10-03 14:23] LABS: Partial Thromboplastin Time 28.8 Seconds (22.0-36.0)
--- NOTE | 2024-10-03 15:20 | PD.RESDS ---
Planned Discharge Date 10/03/24 DS: Providers Provider Primary care physician: Yonny Herrera MD Attending Provider on DC: Enma Boyd RESIDENT Discharging Provider: RESIDENT Snehal Hospital Course Time Spent with Patient Time attestation: Total time spent providing and/or coordinating discharge services: Exam Vital Signs Temp Pulse Resp BP Pulse Ox O2 Del Method O2 Flow Rate 97.6 F 84 17 102/74 100 Nasal Cannula 6 10/03/24 13:23 10/03/24 13:23 10/03/24 13:23 10/03/24 13:23 10/03/24 13:23 10/03/24 13:23 10/03/24 13:23 Discharge Plan Prescriptions/Referrals Prescriptions/Med Rec: No Action aspirin [Bert Low Dose Aspirin] 81 mg Tablet,Delayed Release (Dr/Ec) 81 mg PO QDAY oxybutynin chloride 10 mg tablet extended release 24hr 10 mg PO HS Patient Comments: TAKE 1 TABLET BY MOUTH AT BEDTIME sertraline 50 mg tablet 50 mg PO DAILY Patient Comments: TAKE 1 TABLET BY MOUTH ONCE DAILY amlodipine 10 mg tablet 10 mg PO QDAY Qty: 0 0RF oxycodone-acetaminophen 5-325 mg Tablet 1 tab PO Q6HR PRN (Reason: Pain Scale 7-10 (Severe) Qty: 0 0RF insulin lispro 100 unit/mL Solution 5 unit SCi AC Qty: 0 0RF Januvia 50 mg Tablet 100 mg PO QDAY Qty: 0 0RF insulin glargine [Lantus U-100 Insulin] 100 unit/mL Solution 30 unit SCi HS Qty: 2 0RF (DME) FreeStyle Singh 14 Day Sensor Kit See Rx Instructions .Route Qty: 1 0RF Rx Instructions: As directed (DME) insulin syringe-needle U-100 [Insulin Syringe] 0.5 mL 29 gauge x 1/2 syringe See Rx Instructions .Route Qty: 10 0RF Rx Instructions: As directed atorvastatin [Lipitor] 10 mg Tablet 20 mg PO HS Qty: 30 0RF Renal-Chata 0.8 mg tablet 1 tab PO Q24H Qty: 30 0RF bisacodyl 5 mg tablet,delayed release (DR/EC) 5 mg PO PRN Qty: 30 0RF lisinopril 40 mg Tablet 40 mg PO QDAY Qty: 30 0RF finasteride 5 mg Tablet 5 mg PO QDAY Qty: 30 0RF ferrous sulfate [FeroSul] 325 mg (65 mg iron) tablet 325 mg PO QDAY ascorbic acid (vitamin C) [C-500] 500 mg tablet 500 mg PO BID amoxicillin-pot clavulanate 500-125 mg tablet 1 tab PO BID 5 Days Qty: 10 0RF Referrals: Yonny Herrera MD [Primary Care Provider] - In 1 week Patient/Caregiver Discharge Instructions Print Language: [place]
[2024-10-03 17:00] VITALS: BP 152/83; PULSE 95; RESP 18; TEMP 36.6; O2SAT 99
[2024-10-03 17:27] LABS: Collection Type, Urine Clean Catch
[2024-10-03 18:06] LABS: Bilirubin,Urine Negative (Negative); Blood,Urine 3+ (Negative); Clarity,Urine Turbid (Clear/Hazy); Color,Urine Yellow (Lt Yel-Yel); Culture Indicated,Urine Yes; Glucose, Urine Negative (Negative); Ketones,Urine Negative (Negative); Leukocyte Esterase,Urine Positive (Negative); Nitrite,Urine Negative (Negative); PH,Urine 6.0 (5.0-7.0); Protein,Urine 1+ (Neg - Trace); RBC,Urine 101 /hpf (0-3); Specific Gravity,Urine 1.016 (1.001-1.035); Squamous Epithelial Cell,Urine < 1 /hpf (0-5); Urobilinogen,Urine Negative mg/dL (0.0-1.0); WBC,Urine 24 /hpf (0-5)
[2024-10-03 18:43] VITALS: BP 119/87; PULSE 95; RESP 18; TEMP 36.6; O2SAT 96
[2024-10-03] MEDS: cefTRIAXone/D5w 1gm IV premix 1 GM/50 ML BAG IV (19:40)
[2024-10-03 20:00] VITALS: BP 127/76; PULSE 92; RESP 14; TEMP 37; O2SAT 95
[2024-10-03 20:45] VITALS: BP 145/85; PULSE 85; RESP 14; TEMP 37; O2SAT 99
== END 2024-10-03 21:00 | disposition home or self-care (01) ==
PROVIDERS: Nurse Practitioner Family; Emergency Provider Family Medicine; PCP Internal Medicine
DX: R55 Syncope and collapse (principal); N39.0 Urinary tract infection, site not specified; I49.3 Ventricular premature depolarization; I10 Essential (primary) hypertension
CPT/HCPCS: 36415; 71045; 80053; 81001; 84484; 85025; 85730; 87086; 93005; 96365; 99283; J0696; J7120; A9270